=== PATIENT | male | born 1970 | race African-American/Black ===

== ENCOUNTER 2020-10-10 17:36 | Emergency (ER) | payer MEDICAID, SELFPAY ==
[2020-10-10 17:50] VITALS: PULSE 101; RESP 18; TEMP 36.7; O2SAT 92; BMI 48.9
--- NOTE | 2020-10-10 18:30 | XR_ITS ---
EXAMINATION: XR chest 1V CLINICAL INFORMATION: Reason for Exam covid +, mild hypoxia COMPARISON: No prior chest x-ray available TECHNIQUE: XR chest 1V Tubes and lines: None Lungs and Eliane: Both lungs are clear. Pleura: Normal. Costophrenic angles are sharp. No pneumothorax. Heart and mediastinum: The mediastinum is within normal limits.. Bones: Skeletal structures included are normal for patient's age. XR/XR chest 1V IMPRESSION: No radiographic evidence of acute cardiopulmonary disease.
--- NOTE | 2020-10-10 18:32 | ED.GENADULT ---
HPI - General Adult General Chief complaint: Upper Respiratory Symptoms Stated complaint: covid Time Seen by Provider: 10/10/20 18:00 Source: patient Mode of arrival: ambulatory Limitations: no limitations History of Present Illness HPI narrative: patient comes to the emergency room, patient was sent from [facility]. patient is there for rehab for sciatica Pain. Patient states he got tested for COVID-19 this morning and it was positive. His oxygen saturation was between 91-96% on room air, therefore he was sent to the emergency room. Patient states he has a mild sore throat, does not have any chest pain no shortness of breath, denies any body aches, otherwise feeling well, patient states he has not had any fever MD complaint: low oxygen saturation Related Data Home Medications Medication Instructions Recorded Confirmed Dulcolax (bisacodyl) 10/10/20 Fleet Enema 10/10/20 Glucose Gel 10/10/20 Milk of Magnesia 10/10/20 Miralax 10/10/20 Senno 10/10/20 Tylenol 10/10/20 Vitamin D3 10/10/20 10/10/20 aspirin 10/10/20 atorvastatin 10/10/20 cetirizine 10/10/20 cyclobenzaprine 10/10/20 diclofenac sodium 10/10/20 escitalopram oxalate 10/10/20 famotidine 10/10/20 fluticasone propionate 10/10/20 gabapentin 10/10/20 glucagon 10/10/20 lisinopril 10/10/20 metformin 10/10/20 metoprolol succinate 10/10/20 naproxen 10/10/20 Allergies Allergy/AdvReac Type Severity Reaction Status Date / Time No Known Allergies Allergy Verified 10/10/20 18:05 Review of Systems Review of Systems: Constitutional : No Weight loss, No Fever, No Chills, No Night Sweats, No Fatigue, No Malaise ENT/Mouth : No Hearing loss, No Ear Pain, No Nasal Congestion, No Sinus Pain, mild Hoarseness, mild sore throat, No Rhinorrhea, No Swallowing Difficulty Eyes: No Eye Pain, No Swelling, No Redness, No Foreign Body, No Discharge, No Vision Changes Cardiovascular : No Chest Pain, No SOB, No Dyspnea on Exertion, No Orthopnea, No Edema, No Palpitations Respiratory : No Cough, No Sputum, No Wheezing, No Smoke Exposure, No Dyspnea Gastrointestinal : No Nausea, No Vomiting, No Diarrhea, No Constipation, No abdominal Pain, No Hematochezia, No Melena Genitourinary : no irregular bleeding, No Dysuria, No Urinary Frequency, No Hematuria, No Urinary Incontinence, No Urgency, No Flank Pain, No Urinary Flow Changes, No Hesitancy Musculoskeletal : No joint pain, No Myalgias, No Joint Swelling Skin : No Skin Lesions, No rash Neuro : No Weakness, No Numbness, No Paresthesias, No Loss of Consciousness, No Dizziness, No Headache Psych : No Anxiety/Panic, No Depression, No SI/HI/AH/VH, No Social Issues, Heme/Lymph: No Bruising, No Bleeding,No Lymphadenopathy Endocrine : No Polyuria, No Polydipsia, No Temperature Intolerance [facility] Past Medical History Medical History Anxiety Arthritis Depression Diabetes mellitus, type 2 Hypertension Obesity PTSD (post-traumatic stress disorder) Sleep apnea Social History Social History Alcohol intake: never Smoked in Last 30 Days: No Use of substances other than those prescribed or required for medical reasons: No Advance Directives: No Advance Directives Information Provided: No Physical Exam Vital Signs: Vital Signs: Last Vital Signs Temp 97.9 F 10/10/20 20:00 Pulse 86 10/10/20 20:00 Resp 16 10/10/20 20:00 BP 125/82 10/10/20 20:00 Pulse Ox 95 10/10/20 20:36 Body Mass Index 48.9 Appearance: Alert. Oriented X3. No acute distress. Eyes: Pupils equal, round and reactive to light. ENT: Pharynx normal. Neck: Normal inspection. Neck supple. No lymph nodes noted. No crepitus CVS: Normal heart rate and rhythm. Pulses normal. Normal S1 and S2 Respiratory: No respiratory distress. Breath sounds normal. No Wheezing. No rales Abdomen: Soft and nontender. No rigidity. No distention. good BS x4 Skin: Skin warm and dry. Normal skin color. Normal skin turgor. Extremities: +1 lower extremity nonpitting edema. No Lacerations. No Rash. Neuro: Oriented X 3. No motor deficit. No sensory deficit. Moving all extermities. No slurred speech. Course Course Course Narrative: Patient states he feels well. Patient has been on room air saturating between 93 and 96%, patient is known to have COVID-19, patient may be discharged. Medical Decision Making Lab Data Result diagrams: 10/10/20 19:43 10/10/20 19:43 Labs: Lab Results 10/10/20 10/10/20 Range/Units 19:43 19:43 WBC 4.7 L (4.8-10.8) X10*3/uL RBC 5.21 (4.60-5.80) X10*6/uL Hgb 14.7 (14.0-18.0) g/dl Hct 46.6 (42-52) % MCV 89.4 (80-98) fL MCH 28.2 (27.0-33.0) pg MCHC 31.5 (31.0-36.0) g/dl RDW 13.5 (11.0-16.0) % Plt Count 226 (160-400) X10*3/uL MPV 11.1 (9.4-12.4) fL Immature Gran % (Auto) 0.4 (0.0-0.4) % Neut % (Auto) 52.2 (45-73) % Lymph % (Auto) 33.1 (20-40) % [place] % (Auto) 9.6 (2-11) % Eos % (Auto) 4.1 H (0-4) % Baso % (Auto) 0.6 (0-2) % Lymph # (Auto) 1.6 (1.2-4.9) X10*3/uL [place] # (Auto) 0.5 (0.1-1.2) X10*3/uL Eos # (Auto) 0.2 (0.0-0.4) X10*3/uL Baso # (Auto) 0.0 (0.0-0.2) X10*3/uL Abs Immat Gran (auto) 0.02 (0.00-0.03) X10*3/uL Absolute Neuts (auto) 2.4 (2.0-8.3) X10*3/uL Absolute Nucleated RBC 0.000 (0.0-0.012) X10*3/uL Nucleated RBC % (auto) 0.0 (0.0-0.2) /100WBC Sodium 139 (135-145) mmol/L Potassium 3.8 (3.3-5.1) mmol/l Chloride 103 (96-108) mmol/L Carbon Dioxide 25 (22-29) mmol/L Anion Gap 15 (12-20) BUN 7 L (9-16) mg/dL Creatinine 0.67 (0.5-1.4) mg/dL Estim Creat Clear Calc 207.5 Estimated GFR > 60 Random Glucose 100 (60-115) mg/dL Calcium 8.1 L (8.4-10.2) mg/dL Discharge Plan Discharge Clinical Impression: COVID-19 Patient Disposition: Xfer [facility] Instructions: COVID-19 (Coronavirus Disease 2019) (ED) Additional Instructions: if you have worsening shortness of breath, oxygen saturation drops below 90, any new symptoms, please return to the emergency room. Prescriptions: No Action Dulcolax (bisacodyl) RF: 0 Fleet Enema RF: 0 Glucose Gel RF: 0 Milk of Magnesia RF: 0 Miralax RF: 0 Senno RF: 0 Tylenol RF: 0 Vitamin D3 RF: 0 aspirin RF: 0 atorvastatin RF: 0 cetirizine RF: 0 cyclobenzaprine RF: 0 diclofenac sodium RF: 0 escitalopram oxalate RF: 0 famotidine RF: 0 fluticasone propionate RF: 0 gabapentin RF: 0 glucagon RF: 0 lisinopril RF: 0 metformin RF: 0 metoprolol succinate RF: 0 naproxen RF: 0
[2020-10-10 19:49] LABS: MANUAL DIFF FLAG NO
[2020-10-10 19:53] LABS: Basophils Percent Auto 0.6 % (0-2); Eosinophils Absolute Auto 0.2 X10*3/uL (0.0-0.4); Eosinophils Percent Auto 4.1 % (0-4); Hematocrit 46.6 % (42-52); Hemoglobin 14.7 g/dl (14.0-18.0); Imm Gran Abs Auto 0.02 X10*3/uL (0.00-0.03); Imm Gran Pct Auto 0.4 % (0.0-0.4); Lymphocytes Absolute Auto 1.6 X10*3/uL (1.2-4.9); Lymphocytes Percent Auto 33.1 % (20-40); Mean Corpuscular HGB Conc 31.5 g/dl (31.0-36.0); Mean Corpuscular Hemoglobin 28.2 pg (27.0-33.0); Mean Corpuscular Volume 89.4 fL (80-98); Mean Platelet Volume 11.1 fL (9.4-12.4); Monocytes Absolute Auto 0.5 X10*3/uL (0.1-1.2); Monocytes Percent Auto 9.6 % (2-11); Neutrophils Absolute Auto 2.4 X10*3/uL (2.0-8.3); Neutrophils Percent Auto 52.2 % (45-73); Platelet Count 226 X10*3/uL (160-400); Red Blood Count 5.21 X10*6/uL (4.60-5.80); Red Cell Distribution Width 13.5 % (11.0-16.0); White Blood Count 4.7 X10*3/uL (4.8-10.8)
[2020-10-10 20:00] VITALS: BP 125/82; PULSE 86; RESP 16; TEMP 36.6; O2SAT 98
--- NOTE | 2020-10-10 20:22 | PC.NURSE ---
Pt reports chronic back pain r/t herniated disc, offered tylenol/motrin, declined. awaiting dispo
[2020-10-10 20:27] LABS: Anion Gap 15 (12-20); Blood Urea Nitrogen 7 mg/dL (9-16); Calcium 8.1 mg/dL (8.4-10.2); Carbon Dioxide 25 mmol/L (22-29); Chloride 103 mmol/L (96-108); Creatinine Clr Calc Pharmacy 207.5; Estimated Glomerular Filt Rate > 60; Glucose Random 100 mg/dL (60-115); Potassium 3.8 mmol/l (3.3-5.1); Sodium 139 mmol/L (135-145)
[2020-10-10 20:36] VITALS: PULSE 82; O2SAT 95
[2020-10-10 22:01] VITALS: BP 104/78; PULSE 84; RESP 18; TEMP 36.6; O2SAT 95
--- NOTE | 2020-10-10 22:13 | PC.NURSE ---
Report given to rn at [facility]
== END 2020-10-10 22:14 | disposition skilled nursing facility (03) ==
PROVIDERS: Emergency Provider Emergency Medicine
DX: U07.1 COVID-19 (principal); M54.42 Lumbago with sciatica, left side; M54.41 Lumbago with sciatica, right side
CPT/HCPCS: 36415; 71045; 80048; 85025; 99285

== ENCOUNTER 2022-09-28 11:34 | Emergency (ER) | payer OTHER, SELFPAY ==
[2022-09-28 11:43] VITALS: BP 158/92; PULSE 94; O2SAT 98
[2022-09-28 11:52] VITALS: BP 162/86; PULSE 89; RESP 18; TEMP 36.2; O2SAT 98; BMI 63.9
--- NOTE | 2022-09-28 12:13 | ED.GENADULT ---
HPI - General Adult General Chief complaint: General Medical Stated complaint: ABD PAIN S/P DRINKING RUBBING ALCOHOL TO GET DRUNK Time Seen by Provider: 09/28/22 12:07 Source: patient and EMS Mode of arrival: EMS Limitations: no limitations History of Present Illness HPI narrative: Patient is a 52 year old assigned male at with a history of alcohol abuse presenting to the emergency department today with epigastric pain after ingesting rubbing alcohol. Patient states that he has been sober for years and in a moment of weakness last night, he drank rubbing alcohol. Patient states that he drank about half a bottle and immediately threw it all up. Patient states that he has not had any additional vomiting today and has just had epigastric pain. Patient denies any dizziness, lightheadedness, nausea, vomiting, fever, chills, blurry vision, double vision, loss of vision, chest pain, difficulty breathing, shortness of breath, back pain, night sweats, pain with urination, increased urinary frequency, increased urinary urgency, blood in his urine or stool, syncope or a near syncopal episode, recent trauma or falls, bowel incontinence, bladder incontinence, bowel retention, bladder retention, or any other complaints at this time. Onset (ago): hour(s) Location: abdomen Radiation: non-radiation Severity: mild Severity scale (1-10): 3 Quality: burning Pain Consistency: constant Relieving factors: none Exacerbating factors: none Associated symptoms: denies other symptoms Treatments prior to arrival: none Related Data Home Medications Medication Instructions Recorded Confirmed Dulcolax (bisacodyl) 10/10/20 Fleet Enema 10/10/20 Glucose Gel 10/10/20 Milk of Magnesia 10/10/20 Miralax 10/10/20 Senno 10/10/20 Tylenol 10/10/20 Vitamin D3 10/10/20 10/10/20 aspirin 10/10/20 atorvastatin 10/10/20 cetirizine 10/10/20 cyclobenzaprine 10/10/20 diclofenac sodium 10/10/20 escitalopram oxalate 10/10/20 famotidine 10/10/20 fluticasone propionate 10/10/20 gabapentin 10/10/20 glucagon 10/10/20 lisinopril 10/10/20 metformin 10/10/20 metoprolol succinate 10/10/20 naproxen 10/10/20 Allergies Allergy/AdvReac Type Severity Reaction Status Date / Time No Known Allergies Allergy Verified 10/10/20 18:05 Review of Systems Constitutional: Constitutional: Reports no additional constitutional complaints, Denies chills, Denies fever(s) and Denies night sweats Eyes: Eyes: Reports no additional eye complaints, Denies blurry vision, Denies change in vision, Denies diplopia, Denies eye discharge, Denies loss of vision and Denies eye pain ENT: Denies dizziness Cardiovascular: Cardiovascular: Reports no additional cardiovascular complaints, Denies chest pain, Denies lightheadedness, Denies Loss of Consciousness and Denies dyspnea Respiratory: Respiratory: Reports no additional respiratory complaints and Denies dyspnea Gastrointestinal: Gastrointestinal: Reports no additional gastrointestinal complaints, Reports abdominal pain, Denies melena, Denies hematochezia, Denies change in bowel habits and Denies change in stool character Genitourinary: Genitourinary: Reports no additional male genitourinary complaints, Denies hematuria, Denies oliguria, Denies difficulty urinating, Denies dysuria, Denies urinary frequency, Denies urinary hesitancy, Denies urinary incontinence and Denies urinary urgency Musculoskeletal: Musculoskeletal: Reports no additional musculoskeletal complaints, Denies numbness and Denies tingling Neurologic: Denies dizziness, Denies loss of vision, Denies numbness and Denies tingling Psychiatric: Psychiatric: Reports no additional psychiatric complaints Endocrine: Endocrine: Reports no additional endocrine complaints Hematologic/Lymphatic: Hematologic/Lymphatic: Reports no additional hematologic/lymphatic complaints Allergic/Immunologic: Allergic/Immunologic: Reports no additional allergic/immunologic complaints PMFSH Past Medical History Attestation statement: The following information was validated with the patient. Source: old records reviewed Medical History Anxiety Arthritis Depression Diabetes mellitus, type 2 Herniated disc Hypertension Obesity PTSD (post-traumatic stress disorder) Sleep apnea Social History Social History Alcohol intake: never Advance Directives: No Physical Exam ED Vital Signs: Vital Signs - 24 hr 09/28/22 11:52 09/28/22 14:54 09/28/22 16:35 Temperature 97.2 F 98 F 98.0 F Pulse Rate 89 100 113 H Respiratory Rate 18 18 16 Blood Pressure 162/86 H 109/49 L 108/65 Pulse Oximetry 98 98 98 Oxygen Delivery Method Room Air Room Air BMI result Body Mass Index 63.9 Const General: cooperative, no acute distress, alert and awake Nutritional Appearance: well nourished Orientation/consciousness: patient oriented x3 Limitations: no limitations HENMT Head: Yes normal to inspection and Yes atraumatic Ears: hearing grossly normal bilaterally and external ears normal General nose exam: Normal external nose present, no nasal discharge noted and no epistaxis Face and sinus: Yes normal facial exam, No abrasion and No laceration Mouth: Normal oral and palatal mucosa present, no drooling and no muffled voice Eyes General: appearance normal, both eyes and all related structures Periorbital: periorbital findings normal Eyelids: Yes eyelids normal Conjunctivae: conjunctivae normal Pupils: Equal, round and reactive pupils present EOM: EOMs intact bilaterally Neck Neck: Yes normal visual inspection, Yes full ROM and Yes no lymphadenopathy Chest Chest palpation & inspection: normal inspection of the chest Resp Effort & Inspection: normal respiratory effort and able to speak in complete sentences Auscultation: clear to auscultation bilaterally Cardio Rate: regular rate Rhythm: regular rhythm GI Inspection: Yes normal to inspection Palpation (GI): Soft to palpation, not firm, nontender, no guarding and not rigid Neuro General: patient oriented x3 and moves all extremities Cranial nerves: Yes Equal, round and reactive pupils present Cognition (Neuro): normal cognition Motor exam (neuro): 5/5 motor strength present throughout Sensory Exam: Normal double simultaneous stimulation for sensation Coordination: [id number] test normal Extrem General: Yes normal to inspection, Yes full ROM and Yes capillary refill normal Psych Appearance: grossly normal Mental Status: mental status grossly normal Affect: normal affect Attitude: cooperative Thought process: Normal thought process present Thought content: Normal thought content present Insight: Good insight present (Psych) Medications Administered Discontinued Medications Generic Name Dose Route Start Last Admin Trade Name Isaiahq PRN Reason Stop Dose Admin Al Hydroxide/Mg Hydroxide 15 ml 09/28/22 12:41 09/28/22 14:52 Magnesium Hydrox/Alum Hydrox 30 Ml Oral.Susp PO 09/28/22 12:42 15 ml ONCE ONE Administration Sodium Chloride 1,000 mls @ 999 mls/hr 09/28/22 12:45 09/28/22 14:53 Ns IV 09/28/22 13:45 Not Given .Q1H1M TOBY Ondansetron HCl 4 mg 09/28/22 12:33 09/28/22 14:53 Ondansetron Hcl 4 Mg/2 Ml Vial IVPUSH 09/28/22 12:34 Not Given ONCE ONE Pantoprazole Sodium 40 mg 09/28/22 12:41 09/28/22 14:53 Pantoprazole Sodium 40 Mg/10 Ml Vial IVPUSH 09/28/22 12:42 Not Given ONCE ONE Medical Decision Making MDM Narrative Medical decision making narrative: Patient is a 52 year old assigned male at with a history of alcoholism presenting to the emergency department today with epigastric pain. Patient's physical exam was unremarkable. Patient's blood work showed presence of acetone and a serum osmolality of 320. Patient's EKG was unremarkable. I spoke to sylvia avery who stated those labs are expected and there is nothing to do about them. They stated that the patient is medically cleared and they advise supportive measures only for his symptoms. I explained my physical exam findings as well as all test results to the patient. I answered all questions asked by the patient. Patient received PO Maalox which he stated helped his symptoms significantly. I stressed the importance of the patient taking his medication as prescribed. I stressed the importance of the patient following up with his primary care provider. I stressed the importance of the patient returning to the emergency department immediately if his symptoms were to worsen or if he were to develop any dizziness, shortness of breath, difficulty breathing, chest pain, blurry vision, loss of vision, nausea, vomiting, abdominal pain, fever, chills, back pain, or any other complaints. Patient verbalized agreement and understanding with this treatment plan and discharge. Medical Records Medical records reviewed: Yes I reviewed the patient's medical records. Lab Data Lab results reviewed: Yes I reviewed the patient's lab results. Result diagrams: 09/28/22 14:44 09/28/22 14:44 Labs: Lab Results 09/28/22 09/28/22 09/28/22 Range/Units 14:44 14:44 14:44 WBC 8.3 (4.8-10.8) X10*3/uL RBC 5.16 (4.60-5.80) X10*6/uL Hgb 15.2 (14.0-18.0) g/dl Hct 45.8 (42.0-52.0) % MCV 88.8 (80.0-98.0) fL MCH 29.5 (27.0-33.0) pg MCHC 33.2 (31.0-36.0) g/dl RDW 13.2 (11.0-16.0) % Plt Count 273 (160-400) X10*3/uL MPV 10.4 (9.4-12.4) fL Immature Gran % (Auto) 0.2 (0.0-0.4) % Neut % (Auto) 70.8 (45-73) % Lymph % (Auto) 20.6 (20-40) % [place] % (Auto) 7.9 (2-11) % Eos % (Auto) 0.0 (0-4) % Baso % (Auto) 0.5 (0-2) % Lymph # (Auto) 1.7 (1.2-4.9) X10*3/uL [place] # (Auto) 0.7 (0.1-1.2) X10*3/uL Eos # (Auto) 0.0 (0.0-0.4) X10*3/uL Baso # (Auto) 0.0 (0.0-0.2) X10*3/uL Abs Immat Gran (auto) 0.02 (0.00-0.03) X10*3/uL Absolute Neuts (auto) 5.9 (2.0-8.3) x10*3/uL Absolute Nucleated RBC 0.000 (0.0-0.012) X10*3/uL Nucleated RBC % (auto) 0.0 (0.0-0.2) /100WBC Sodium 140 (135-145) mmol/L Potassium 3.7 (3.3-5.1) mmol/L Chloride 102 (96-108) mmol/L Carbon Dioxide 23 (22-29) mmol/L Anion Gap 19 (12-20) BUN 5 L (9-16) mg/dL Creatinine 1.05 (0.5-1.4) mg/dL Estim Creat Clear Calc 166.2 Estimated GFR > 60 Random Glucose 124 H (60-115) mg/dL Osmolality (281-305) mosm/kg Calcium 8.7 D (8.4-10.2) mg/dL Magnesium 1.9 (1.6-2.6) mg/dL Total Bilirubin 0.7 (0.0-1.0) mg/dL AST 31 (5-37) U/L ALT 31 (0-40) U/L Alkaline Phosphatase 67 (39-117) U/L Total Protein 7.6 (6.5-8.0) g/dL Albumin 4.2 (3.5-5.0) g/dL Salicylates < 5.0 L (15-30) mg/dL Acetaminophen < 1 (<30) mcg/mL Ethyl Alcohol < 10 mg/dL Acetone, Qual (Negative) 09/28/22 09/28/22 Range/Units 14:44 14:44 WBC (4.8-10.8) X10*3/uL RBC (4.60-5.80) X10*6/uL Hgb (14.0-18.0) g/dl Hct (42.0-52.0) % MCV (80.0-98.0) fL MCH (27.0-33.0) pg MCHC (31.0-36.0) g/dl RDW (11.0-16.0) % Plt Count (160-400) X10*3/uL MPV (9.4-12.4) fL Immature Gran % (Auto) (0.0-0.4) % Neut % (Auto) (45-73) % Lymph % (Auto) (20-40) % [place] % (Auto) (2-11) % Eos % (Auto) (0-4) % Baso % (Auto) (0-2) % Lymph # (Auto) (1.2-4.9) X10*3/uL [place] # (Auto) (0.1-1.2) X10*3/uL Eos # (Auto) (0.0-0.4) X10*3/uL Baso # (Auto) (0.0-0.2) X10*3/uL Abs Immat Gran (auto) (0.00-0.03) X10*3/uL Absolute Neuts (auto) (2.0-8.3) x10*3/uL Absolute Nucleated RBC (0.0-0.012) X10*3/uL Nucleated RBC % (auto) (0.0-0.2) /100WBC Sodium (135-145) mmol/L Potassium (3.3-5.1) mmol/L Chloride (96-108) mmol/L Carbon Dioxide (22-29) mmol/L Anion Gap (12-20) BUN (9-16) mg/dL Creatinine (0.5-1.4) mg/dL Estim Creat Clear Calc Estimated GFR Random Glucose (60-115) mg/dL Osmolality 320 H (281-305) mosm/kg Calcium (8.4-10.2) mg/dL Magnesium (1.6-2.6) mg/dL Total Bilirubin (0.0-1.0) mg/dL AST (5-37) U/L ALT (0-40) U/L Alkaline Phosphatase (39-117) U/L Total Protein (6.5-8.0) g/dL Albumin (3.5-5.0) g/dL Salicylates (15-30) mg/dL Acetaminophen (<30) mcg/mL Ethyl Alcohol mg/dL Acetone, Qual Small H (Negative) Discharge Plan Discharge Clinical Impression: Alcohol ingestion Patient Disposition: Home, Self-Care Additional Instructions: Follow up with your primary care provider. Return to the emergency department immediately if your symptoms worsen or if you develop any dizziness, shortness of breath, difficulty breathing, chest pain, blurry vision, loss of vision, nausea, vomiting, abdominal pain, fever, chills, back pain, or any other complaints. Prescriptions: No Action Dulcolax (bisacodyl) Fleet Enema Glucose Gel Milk of Magnesia Miralax Senno Tylenol Vitamin D3 aspirin atorvastatin cetirizine cyclobenzaprine diclofenac sodium escitalopram oxalate famotidine fluticasone propionate gabapentin glucagon lisinopril metformin metoprolol succinate naproxen Referrals: Ruddy Diaz PA [Primary Care Provider] - Print Language: Slovenian
--- NOTE | 2022-09-28 12:34 | ECG_ITS ---
Test Reason : ABDOMINAL PAIN Blood Pressure : / mmHG Vent. Rate : 083 BPM Atrial Rate : 083 BPM P-R Int : 208 ms QRS Dur : 098 ms QT Int : 378 ms P-R-T Axes : 035 238 -10 degrees QTc Int : 444 ms Normal sinus rhythm Right superior axis deviation Low voltage QRS Incomplete right bundle branch block Abnormal ECG No previous ECGs available Referred By: Barb Tirado Electronically Signed By:DARWIN LEAL MD
[2022-09-28 14:49] LABS: MANUAL DIFF FLAG NO
--- NOTE | 2022-09-28 14:49 | PC.NURSE ---
mult attempts at iv and labbs unsuccessful, pt sleeping on/off, skin wpd, c/o stomach upset, pa alber aware and states iv not necessary
[2022-09-28] MEDS: Magnesium Hydrox/Alum Hydrox 30 ML ORAL.SUSP 15 ML PO (14:52)
[2022-09-28 14:53] LABS: Basophils Percent Auto 0.5 % (0-2); Hematocrit 45.8 % (42.0-52.0); Hemoglobin 15.2 g/dl (14.0-18.0); Imm Gran Abs Auto 0.02 X10*3/uL (0.00-0.03); Imm Gran Pct Auto 0.2 % (0.0-0.4); Lymphocytes Absolute Auto 1.7 X10*3/uL (1.2-4.9); Lymphocytes Percent Auto 20.6 % (20-40); Mean Corpuscular HGB Conc 33.2 g/dl (31.0-36.0); Mean Corpuscular Hemoglobin 29.5 pg (27.0-33.0); Mean Corpuscular Volume 88.8 fL (80.0-98.0); Mean Platelet Volume 10.4 fL (9.4-12.4); Monocytes Absolute Auto 0.7 X10*3/uL (0.1-1.2); Monocytes Percent Auto 7.9 % (2-11); Neutrophils Absolute Auto 5.9 x10*3/uL (2.0-8.3); Neutrophils Percent Auto 70.8 % (45-73); Platelet Count 273 X10*3/uL (160-400); Red Blood Count 5.16 X10*6/uL (4.60-5.80); Red Cell Distribution Width 13.2 % (11.0-16.0); White Blood Count 8.3 X10*3/uL (4.8-10.8)
[2022-09-28 14:54] VITALS: BP 109/49; PULSE 100; RESP 18; TEMP 36.6; O2SAT 98
[2022-09-28 15:16] LABS: Acetone, serum QL Small (Negative); Ethanol < 10 mg/dL
[2022-09-28 15:46] LABS: Osmolality, Serum 320 mosm/kg (281-305)
[2022-09-28 15:55] LABS: Acetaminophen LAB < 1 mcg/mL (<30); Alanine Aminotransferase 31 U/L (0-40); Albumin Level 4.2 g/dL (3.5-5.0); Alkaline Phosphatase 67 U/L (39-117); Anion Gap 19 (12-20); Aspartate Amino Transferase 31 U/L (5-37); Bilirubin Total 0.7 mg/dL (0.0-1.0); Blood Urea Nitrogen 5 mg/dL (9-16); Calcium 8.7 mg/dL (8.4-10.2); Carbon Dioxide 23 mmol/L (22-29); Chloride 102 mmol/L (96-108); Creatinine Clr Calc Pharmacy 166.2; Estimated Glomerular Filt Rate > 60; Glucose Random 124 mg/dL (60-115); Magnesium 1.9 mg/dL (1.6-2.6); Potassium 3.7 mmol/L (3.3-5.1); Salicylate < 5.0 mg/dL (15-30); Sodium 140 mmol/L (135-145); Total Protein 7.6 g/dL (6.5-8.0)
[2022-09-28 16:35] VITALS: BP 108/65; PULSE 113; RESP 16; TEMP 36.7; O2SAT 98
[2022-09-28] MEDS: Ondansetron ODT 4 MG TAB.RAPDIS TRANSLINGU (17:46)
[2022-09-28] MEDS: Omeprazole 20 MG CAPSULE.DR PO (17:46)
[2022-09-30 03:51] LABS: Analysis performed on: WHOLE BLOOD; Ethyl Alcohol g/dL (%) NONE DETECTED g/dL(%) (NONE DETECTED); Ethyl Alcohol mg/dL NONE DETECTED (NONE DETECTED); Isopropanol NONE DETECTED (NONE DETECTED)
[2022-09-30 07:15] LABS: Acetone 92; Methyl Alcohol NONE DETECTED
== END 2022-09-28 18:14 | disposition home or self-care (01) ==
PROVIDERS: Physician Assistant Medical; Emergency Provider Emergency Medicine Emergency Medical Services; PCP Physician Assistant
DX: T51.2X1A Toxic effect of 2-Propanol, accidental (unintentional), initial encounter (principal); R10.13 Epigastric pain; Y92.009 Unspecified place in unspecified non-institutional (private) residence as the place of occurrence of the external cause; F10.20 Alcohol dependence, uncomplicated; E11.9 Type 2 diabetes mellitus without complications; I10 Essential (primary) hypertension; F41.9 Anxiety disorder, unspecified; E66.9 Obesity, unspecified; Z68.44 Body mass index [BMI] 60.0-69.9, adult; Z79.899 Other long term (current) drug therapy
CPT/HCPCS: 36415; 80053; 80143; 80179; 80320; 82009; 82077; 83735; 83930; 85025; 93005; 99284

== ENCOUNTER 2022-10-02 19:30 | Inpatient (IN) | payer MEDICARE, MEDICAID, OTHER, SELFPAY ==
--- NOTE | ~2022-10-02 | XR_ITS ---
EXAMINATION: PORTABLE CHEST 1 VIEW CLINICAL INFORMATION: chest pain . COMPARISON: 10/10/2020. TECHNIQUE: Portable frontal view of the chest was obtained. FINDINGS: Lungs are well expanded. There is central vascular prominence but this is similar to the prior study. Cardiac silhouette is also prominent but this may be technique related. No superimposed focal infiltrate, effusion, edema, or pneumothorax when compared to the prior study. Degenerative changes seen in the spine XR/XR chest 1V IMPRESSION: Chronic appearing changes similar to the prior study. No acute superimposed process.
[2022-10-02 19:39] VITALS: BP 180/100; PULSE 94; O2SAT 96
--- NOTE | 2022-10-02 19:43 | ECG_ITS ---
Test Reason : CHEST TIGHTNESS Blood Pressure : / mmHG Vent. Rate : 090 BPM Atrial Rate : 090 BPM P-R Int : 178 ms QRS Dur : 096 ms QT Int : 410 ms P-R-T Axes : 052 -74 020 degrees QTc Int : 501 ms Sinus rhythm with occasional Premature ventricular complexes Possible Left atrial enlargement Left anterior fascicular block RSR' or QR pattern in V1 suggests right ventricular conduction delay Abnormal ECG When compared with ECG of 28-SEP-2022 12:42, Premature ventricular complexes are now Present Nonspecific T wave abnormality no longer evident in Lateral leads Referred By: Generic ED Physician Electronically Signed By:DARWIN LEAL MD
--- NOTE | 2022-10-02 19:48 | ED_ITS ---
HPI - Chest Pain General Chief Complaint: Chest Pain Stated Complaint: cp Time Seen by Provider: 10/02/22 19:46 Source: patient Mode of arrival: EMS Limitations: no limitations History of Present Illness HPI narrative: Patient morbidly obese TERRIE on CPAP ,alcoholic comes here for chest pain started earlier today mostly on the left side squeezing pain lasting for few minutes off and on all day patient vomited few times with epigastric pain no shortness of breath no diaphoresis no palpitation no leg swelling or calf pain patient was given 324 mg aspirin by EMS Related Data Home Medications Medication Instructions Recorded Confirmed Dulcolax (bisacodyl) 10/10/20 Fleet Enema 10/10/20 Glucose Gel 10/10/20 Milk of Magnesia 10/10/20 Miralax 10/10/20 Senno 10/10/20 Tylenol 10/10/20 Vitamin D3 10/10/20 10/10/20 aspirin 10/10/20 atorvastatin 10/10/20 cetirizine 10/10/20 cyclobenzaprine 10/10/20 diclofenac sodium 10/10/20 escitalopram oxalate 10/10/20 famotidine 10/10/20 fluticasone propionate 10/10/20 gabapentin 10/10/20 glucagon 10/10/20 lisinopril 10/10/20 metformin 10/10/20 metoprolol succinate 10/10/20 naproxen 10/10/20 Allergies Allergy/AdvReac Type Severity Reaction Status Date / Time No Known Allergies Allergy Verified 10/10/20 18:05 Review of Systems Review of Systems: Yes all other systems are reviewed and are negative [facility] Past Medical History Medical History Anxiety Arthritis Depression Diabetes mellitus, type 2 Herniated disc Hypertension Obesity PTSD (post-traumatic stress disorder) Sleep apnea Social History Social History Alcohol intake: never Advance Directives: No Advance Directives Information Provided: Yes Guardian: No Physical Exam Vital Signs: Vital Signs: Last Vital Signs Temp 97.9 F 10/03/22 00:35 Pulse 98 10/03/22 00:35 Resp 19 10/03/22 00:35 BP 149/85 H 10/03/22 00:35 Pulse Ox 97 10/03/22 00:35 O2 Del Method 10/03/22 00:35 BMI result Body Mass Index 59.7 Appearance: Alert. Oriented X3. No acute distress. Obese Eyes: PERRLA, no pallor or icterus ENT: Pharynx normal. Oral Mucosa moist Neck: Normal inspection. Neck supple. CVS: Normal heart rate and rhythm. Pulses normal. Respiratory: No respiratory distress. Equal air entry bilateral, no wheezing/rales/rhonchi Abdomen: Soft and nontender. Bowel sounds are present, no mass palpable, no CVA tenderness Skin: Skin warm and dry. Normal skin color. Normal skin turgor. Extremities: No lower extremity edema. No calf tenderness Neuro: Oriented X 3. No motor deficit. No sensory deficit.No cerebellar signs , cranial nerves II-XII intact Course Reevaluation(s) Reevaluation #1: Patient complaining of increased depression with suicidal feeling because of poor family relationships with plan to keep drinking alcohol. Will consult crisis Time: 21:07 Medications Administered Discontinued Medications Generic Name Dose Route Start Last Admin Trade Name Alf PRN Reason Stop Dose Admin Nitroglycerin 1 inch 10/02/22 19:52 10/02/22 20:27 Nitroglycerin 2 % Oint 1 Gm Packet TRANSDERMA 10/02/22 19:53 1 inch ONCE ONE Administration Ondansetron HCl 4 mg 10/02/22 20:30 10/02/22 20:52 Ondansetron Odt 4 Mg Tab.Rapdis TRANSLINGU 10/02/22 20:31 4 mg ONCE ONE Administration MDM - Chest Pain MDM Narrative Medical decision making narrative: Patient with atypical chest pain with depression and suicidal feeling no delta change in troponin EKG without any ischemic changes patient seen by crisis plan to place him in [place] inpatient psych Medical Records Data Attestation: I reviewed the patient's medical records. Lab Data Attestation: I reviewed the patient's lab results. Result diagrams: 10/02/22 20:10 10/02/22 20:10 Labs: Lab Results 10/02/22 10/02/22 10/02/22 Range/Units 20:10 20:10 20:10 WBC 7.7 (4.8-10.8) X10*3/uL RBC 5.29 (4.60-5.80) X10*6/uL Hgb 15.3 (14.0-18.0) g/dl Hct 47.1 (42.0-52.0) % MCV 89.0 (80.0-98.0) fL MCH 28.9 (27.0-33.0) pg MCHC 32.5 (31.0-36.0) g/dl RDW 13.2 (11.0-16.0) % Plt Count 233 (160-400) X10*3/uL MPV 10.5 (9.4-12.4) fL Immature Gran % (Auto) 0.3 (0.0-0.4) % Neut % (Auto) 75.2 H (45-73) % Lymph % (Auto) 15.4 L (20-40) % [place] % (Auto) 7.3 (2-11) % Eos % (Auto) 0.9 (0-4) % Baso % (Auto) 0.9 (0-2) % Lymph # (Auto) 1.2 (1.2-4.9) X10*3/uL [place] # (Auto) 0.6 (0.1-1.2) X10*3/uL Eos # (Auto) 0.1 (0.0-0.4) X10*3/uL Baso # (Auto) 0.1 (0.0-0.2) X10*3/uL Abs Immat Gran (auto) 0.02 (0.00-0.03) X10*3/uL Absolute Neuts (auto) 5.8 (2.0-8.3) x10*3/uL Absolute Nucleated RBC 0.000 (0.0-0.012) X10*3/uL Nucleated RBC % (auto) 0.0 (0.0-0.2) /100WBC Sodium 138 (135-145) mmol/L Potassium 4.3 (3.3-5.1) mmol/L Chloride 101 (96-108) mmol/L Carbon Dioxide 26 (22-29) mmol/L Anion Gap 15 (12-20) BUN 8 L (9-16) mg/dL Creatinine 0.79 (0.5-1.4) mg/dL Estim Creat Clear Calc 194.4 Estimated GFR > 60 Random Glucose 141 H (60-115) mg/dL Calcium 8.8 (8.4-10.2) mg/dL Total Bilirubin 0.7 (0.0-1.0) mg/dL Direct Bilirubin 0.3 (0.0-0.5) mg/dL AST 37 (5-37) U/L ALT 37 (0-40) U/L Alkaline Phosphatase 62 (39-117) U/L Troponin I High Sens 19.1 (<3.5-35.0) ng/L Total Protein 7.8 (6.5-8.0) g/dL Albumin 4.2 (3.5-5.0) g/dL Lipase 13 (8-78) U/L Urine Opiates Screen (Not Detect) Urine Fentanyl Screen (Not Detect) Ur Barbiturates Screen (Not Detect) Ur Phencyclidine Scrn (Not Detect) Ur Amphetamines Screen (Not Detect) U Benzodiazepines Scrn (Not Detect) Urine Cocaine Screen (Not Detect) U Marijuana (THC) Screen (Not Detect) Ethyl Alcohol < 10 mg/dL Influenza Type A (PCR) (Negative) Influenza Type B (PCR) (Negative) RSV RNA Qual (PCR) (Negative) SARS-CoV-2 RNA (RT-PCR) (Negative) 10/02/22 10/02/22 10/03/22 Range/Units 20:10 21:56 00:31 WBC (4.8-10.8) X10*3/uL RBC (4.60-5.80) X10*6/uL Hgb (14.0-18.0) g/dl Hct (42.0-52.0) % MCV (80.0-98.0) fL MCH (27.0-33.0) pg MCHC (31.0-36.0) g/dl RDW (11.0-16.0) % Plt Count (160-400) X10*3/uL MPV (9.4-12.4) fL Immature Gran % (Auto) (0.0-0.4) % Neut % (Auto) (45-73) % Lymph % (Auto) (20-40) % [place] % (Auto) (2-11) % Eos % (Auto) (0-4) % Baso % (Auto) (0-2) % Lymph # (Auto) (1.2-4.9) X10*3/uL [place] # (Auto) (0.1-1.2) X10*3/uL Eos # (Auto) (0.0-0.4) X10*3/uL Baso # (Auto) (0.0-0.2) X10*3/uL Abs Immat Gran (auto) (0.00-0.03) X10*3/uL Absolute Neuts (auto) (2.0-8.3) x10*3/uL Absolute Nucleated RBC (0.0-0.012) X10*3/uL Nucleated RBC % (auto) (0.0-0.2) /100WBC Sodium (135-145) mmol/L Potassium (3.3-5.1) mmol/L Chloride (96-108) mmol/L Carbon Dioxide (22-29) mmol/L Anion Gap (12-20) BUN (9-16) mg/dL Creatinine (0.5-1.4) mg/dL Estim Creat Clear Calc Estimated GFR Random Glucose (60-115) mg/dL Calcium (8.4-10.2) mg/dL Total Bilirubin (0.0-1.0) mg/dL Direct Bilirubin (0.0-0.5) mg/dL AST (5-37) U/L ALT (0-40) U/L Alkaline Phosphatase (39-117) U/L Troponin I High Sens 23.8 (<3.5-35.0) ng/L Total Protein (6.5-8.0) g/dL Albumin (3.5-5.0) g/dL Lipase (8-78) U/L Urine Opiates Screen Not Detected (Not Detect) Urine Fentanyl Screen Not Detected (Not Detect) Ur Barbiturates Screen Not Detected (Not Detect) Ur Phencyclidine Scrn Not Detected (Not Detect) Ur Amphetamines Screen Not Detected (Not Detect) U Benzodiazepines Scrn Not Detected (Not Detect) Urine Cocaine Screen Not Detected (Not Detect) U Marijuana (THC) Screen Not Detected (Not Detect) Ethyl Alcohol mg/dL Influenza Type A (PCR) NEGATIVE (Negative) Influenza Type B (PCR) NEGATIVE (Negative) RSV RNA Qual (PCR) NEGATIVE (Negative) SARS-CoV-2 RNA (RT-PCR) NEGATIVE (Negative) Discharge Plan Discharge Clinical Impression: Atypical chest pain, Depression Patient Disposition: Still a Patient Instructions: Chest Pain (ED), Depression (ED) Prescriptions: No Action Dulcolax (bisacodyl) Fleet Enema Glucose Gel Milk of Magnesia Miralax Senno Tylenol Vitamin D3 aspirin atorvastatin cetirizine cyclobenzaprine diclofenac sodium escitalopram oxalate famotidine fluticasone propionate gabapentin glucagon lisinopril metformin metoprolol succinate naproxen
[2022-10-02 19:58] VITALS: PULSE 94; RESP 20; TEMP 36.8; O2SAT 95
--- NOTE | 2022-10-02 20:13 | PC.NURSE ---
PATIENT CAME IN VIA [facility] ,PT EKG WAS TAKEN VS TAKEN ,BLOOD DRAWN AND SEND TO LAB,CALL SANTIAGO WITHIN REACH .
[2022-10-02 20:15] LABS: MANUAL DIFF FLAG NO
[2022-10-02 20:16] LABS: Basophils Absolute Auto 0.1 X10*3/uL (0.0-0.2); Basophils Percent Auto 0.9 % (0-2); Eosinophils Absolute Auto 0.1 X10*3/uL (0.0-0.4); Eosinophils Percent Auto 0.9 % (0-4); Hematocrit 47.1 % (42.0-52.0); Hemoglobin 15.3 g/dl (14.0-18.0); Imm Gran Abs Auto 0.02 X10*3/uL (0.00-0.03); Imm Gran Pct Auto 0.3 % (0.0-0.4); Lymphocytes Absolute Auto 1.2 X10*3/uL (1.2-4.9); Lymphocytes Percent Auto 15.4 % (20-40); Mean Corpuscular HGB Conc 32.5 g/dl (31.0-36.0); Mean Corpuscular Hemoglobin 28.9 pg (27.0-33.0); Mean Platelet Volume 10.5 fL (9.4-12.4); Monocytes Absolute Auto 0.6 X10*3/uL (0.1-1.2); Monocytes Percent Auto 7.3 % (2-11); Neutrophils Absolute Auto 5.8 x10*3/uL (2.0-8.3); Neutrophils Percent Auto 75.2 % (45-73); Platelet Count 233 X10*3/uL (160-400); Red Blood Count 5.29 X10*6/uL (4.60-5.80); Red Cell Distribution Width 13.2 % (11.0-16.0); White Blood Count 7.7 X10*3/uL (4.8-10.8)
[2022-10-02 20:20] VITALS: BP 161/98; PULSE 92; RESP 22; BMI 59.7
[2022-10-02] MEDS: Nitroglycerin 2 % Oint 1 GM Packet 1 INCH TRANSDERMA (20:27)
--- NOTE | 2022-10-02 20:31 | PC.NURSE ---
upon initial assessment patient tells me he was seen here and discharged about 4 days ago after he drank rubbing alcohol. patient reports this was mostly in an attempt to hurt himself as opposed to get drunk. he tells me that lately he has been struggling with wanting to live due to family issues and his daughter not wanting him to see her new baby. patient was in alcohol detox for a few years but states lately he has been drinking and has not been sober. denies any alcohol use today. states he does not feel safe to go home and does not want to go through something like drinking rubbing alcohol again. this RN recommended patient consult with [facility]/crisis team for further evaluation. patient is in agreement to this and states he would like the help. MD Pro made aware.
[2022-10-02 20:33] LABS: Alanine Aminotransferase 37 U/L (0-40); Albumin Level 4.2 g/dL (3.5-5.0); Alkaline Phosphatase 62 U/L (39-117); Anion Gap 15 (12-20); Aspartate Amino Transferase 37 U/L (5-37); Bilirubin Direct 0.3 mg/dL (0.0-0.5); Bilirubin Total 0.7 mg/dL (0.0-1.0); Blood Urea Nitrogen 8 mg/dL (9-16); Calcium 8.8 mg/dL (8.4-10.2); Carbon Dioxide 26 mmol/L (22-29); Chloride 101 mmol/L (96-108); Creatinine Clr Calc Pharmacy 194.4; Estimated Glomerular Filt Rate > 60; Glucose Random 141 mg/dL (60-115); Lipase 13 U/L (8-78); Potassium 4.3 mmol/L (3.3-5.1); Sodium 138 mmol/L (135-145); Total Protein 7.8 g/dL (6.5-8.0)
[2022-10-02 20:39] LABS: Troponin-I High Sensitivity 19.1 ng/L (<3.5-35.0)
[2022-10-02] MEDS: Ondansetron ODT 4 MG TAB.RAPDIS TRANSLINGU (20:52)
[2022-10-02 20:54] LABS: Influenza A PCR NEGATIVE (Negative); Influenza B PCR NEGATIVE (Negative); Resp Syncy Virus RNA Qual PCR NEGATIVE (Negative); SARS COV2 PCR INHOUSE NEGATIVE (Negative)
[2022-10-02 21:51] VITALS: BP 157/98; PULSE 94; RESP 16; TEMP 37; O2SAT 97
--- NOTE | 2022-10-02 22:01 | PC.NURSE ---
pt got change into the [facility] attire by this pct ,jp lock up in pod .
[2022-10-02 22:26] LABS: Troponin-I High Sensitivity 23.8 ng/L (<3.5-35.0)
[2022-10-02 22:28] LABS: Ethanol < 10 mg/dL
--- NOTE | 2022-10-02 23:05 | MHC.CARE ---
CARLOS ALBERTO wong
[2022-10-03] VITALS (7 sets, daily range): BP systolic 143–183; BP diastolic 85–116; PULSE 88–101; RESP 16–19; TEMP 36.3–36.6; O2SAT 91–97
--- NOTE | 2022-10-03 00:07 | MHC.CARE ---
Per [facility]- no clinician available until the morning. CARE team completed evaluation with pt, plan is for [place] bed[place]. ED attending physician aware of plan. Pt is agreeable at this time.
[2022-10-03 00:55] LABS: Amphetamine Screen Urine Not Detected (Not Detect); Barbiturates, Urine Not Detected (Not Detect); Benzodiazepines Screen Urine Not Detected (Not Detect); Cannabinoid Screen Urine Not Detected (Not Detect); Cocaine Screen Urine Not Detected (Not Detect); Fentanyl, urine Not Detected (Not Detect); Opiate Screen Urine Not Detected (Not Detect); Phencyclidine Screen Urine Not Detected (Not Detect)
--- NOTE | 2022-10-03 02:05 | ED_ITS ---
HPI - Chest Pain General Chief Complaint: Chest Pain Stated Complaint: cp Time Seen by Provider: 10/02/22 19:46 Source: patient Mode of arrival: EMS Limitations: no limitations Related Data Home Medications Medication Instructions Recorded Confirmed Dulcolax (bisacodyl) 10/10/20 Fleet Enema 10/10/20 Glucose Gel 10/10/20 Milk of Magnesia 10/10/20 Miralax 10/10/20 Senno 10/10/20 Tylenol 10/10/20 Vitamin D3 10/10/20 10/10/20 aspirin 10/10/20 atorvastatin 10/10/20 cetirizine 10/10/20 cyclobenzaprine 10/10/20 diclofenac sodium 10/10/20 escitalopram oxalate 10/10/20 famotidine 10/10/20 fluticasone propionate 10/10/20 gabapentin 10/10/20 glucagon 10/10/20 lisinopril 10/10/20 metformin 10/10/20 metoprolol succinate 10/10/20 naproxen 10/10/20 Allergies Allergy/AdvReac Type Severity Reaction Status Date / Time No Known Allergies Allergy Verified 10/10/20 18:05 [facility] Past Medical History Medical History Anxiety Arthritis Depression Diabetes mellitus, type 2 Herniated disc Hypertension Obesity PTSD (post-traumatic stress disorder) Sleep apnea Social History Social History Alcohol intake: never Advance Directives: No Advance Directives Information Provided: Yes Guardian: No Physical Exam Vital Signs: Vital Signs: Last Vital Signs Temp 97.9 F 10/03/22 00:35 Pulse 98 10/03/22 00:35 Resp 19 10/03/22 00:35 BP 149/85 H 10/03/22 00:35 Pulse Ox 97 10/03/22 00:35 O2 Del Method 10/03/22 00:35 BMI result Body Mass Index 59.7 Medications Administered Discontinued Medications Generic Name Dose Route Start Last Admin Trade Name Freq PRN Reason Stop Dose Admin Nitroglycerin 1 inch 10/02/22 19:52 10/02/22 20:27 Nitroglycerin 2 % Oint 1 Gm Packet TRANSDERMA 10/02/22 19:53 1 inch ONCE ONE Administration Ondansetron HCl 4 mg 10/02/22 20:30 10/02/22 20:52 Ondansetron Odt 4 Mg Tab.Rapdis TRANSLINGU 10/02/22 20:31 4 mg ONCE ONE Administration MDM - Chest Pain MDM Narrative Medical decision making narrative: Atypical chest pain no acute ischemic changes 2 sets of sensitive troponin negative also complaining of depression suicidal ideation will consult care team , advised for patient placement as inpatient psych in a.m. Medical Records Data Attestation: I reviewed the patient's medical records. Lab Data Attestation: I reviewed the patient's lab results. Result diagrams: 10/02/22 20:10 10/02/22 20:10 Labs: Lab Results 10/02/22 10/02/22 10/02/22 Range/Units 20:10 20:10 20:10 WBC 7.7 (4.8-10.8) X10*3/uL RBC 5.29 (4.60-5.80) X10*6/uL Hgb 15.3 (14.0-18.0) g/dl Hct 47.1 (42.0-52.0) % MCV 89.0 (80.0-98.0) fL MCH 28.9 (27.0-33.0) pg MCHC 32.5 (31.0-36.0) g/dl RDW 13.2 (11.0-16.0) % Plt Count 233 (160-400) X10*3/uL MPV 10.5 (9.4-12.4) fL Immature Gran % (Auto) 0.3 (0.0-0.4) % Neut % (Auto) 75.2 H (45-73) % Lymph % (Auto) 15.4 L (20-40) % [place] % (Auto) 7.3 (2-11) % Eos % (Auto) 0.9 (0-4) % Baso % (Auto) 0.9 (0-2) % Lymph # (Auto) 1.2 (1.2-4.9) X10*3/uL [place] # (Auto) 0.6 (0.1-1.2) X10*3/uL Eos # (Auto) 0.1 (0.0-0.4) X10*3/uL Baso # (Auto) 0.1 (0.0-0.2) X10*3/uL Abs Immat Gran (auto) 0.02 (0.00-0.03) X10*3/uL Absolute Neuts (auto) 5.8 (2.0-8.3) x10*3/uL Absolute Nucleated RBC 0.000 (0.0-0.012) X10*3/uL Nucleated RBC % (auto) 0.0 (0.0-0.2) /100WBC Sodium 138 (135-145) mmol/L Potassium 4.3 (3.3-5.1) mmol/L Chloride 101 (96-108) mmol/L Carbon Dioxide 26 (22-29) mmol/L Anion Gap 15 (12-20) BUN 8 L (9-16) mg/dL Creatinine 0.79 (0.5-1.4) mg/dL Estim Creat Clear Calc 194.4 Estimated GFR > 60 Random Glucose 141 H (60-115) mg/dL Calcium 8.8 (8.4-10.2) mg/dL Total Bilirubin 0.7 (0.0-1.0) mg/dL Direct Bilirubin 0.3 (0.0-0.5) mg/dL AST 37 (5-37) U/L ALT 37 (0-40) U/L Alkaline Phosphatase 62 (39-117) U/L Troponin I High Sens 19.1 (<3.5-35.0) ng/L Total Protein 7.8 (6.5-8.0) g/dL Albumin 4.2 (3.5-5.0) g/dL Lipase 13 (8-78) U/L Urine Opiates Screen (Not Detect) Urine Fentanyl Screen (Not Detect) Ur Barbiturates Screen (Not Detect) Ur Phencyclidine Scrn (Not Detect) Ur Amphetamines Screen (Not Detect) U Benzodiazepines Scrn (Not Detect) Urine Cocaine Screen (Not Detect) U Marijuana (THC) Screen (Not Detect) Ethyl Alcohol < 10 mg/dL Influenza Type A (PCR) (Negative) Influenza Type B (PCR) (Negative) RSV RNA Qual (PCR) (Negative) SARS-CoV-2 RNA (RT-PCR) (Negative) 11/20/22 11/20/22 11/21/22 Range/Units 20:10 21:56 00:31 WBC (4.8-10.8) X10*3/uL RBC (4.60-5.80) X10*6/uL Hgb (14.0-18.0) g/dl Hct (42.0-52.0) % MCV (80.0-98.0) fL MCH (27.0-33.0) pg MCHC (31.0-36.0) g/dl RDW (11.0-16.0) % Plt Count (160-400) X10*3/uL MPV (9.4-12.4) fL Immature Gran % (Auto) (0.0-0.4) % Neut % (Auto) (45-73) % Lymph % (Auto) (20-40) % [place] % (Auto) (2-11) % Eos % (Auto) (0-4) % Baso % (Auto) (0-2) % Lymph # (Auto) (1.2-4.9) X10*3/uL [place] # (Auto) (0.1-1.2) X10*3/uL Eos # (Auto) (0.0-0.4) X10*3/uL Baso # (Auto) (0.0-0.2) X10*3/uL Abs Immat Gran (auto) (0.00-0.03) X10*3/uL Absolute Neuts (auto) (2.0-8.3) x10*3/uL Absolute Nucleated RBC (0.0-0.012) X10*3/uL Nucleated RBC % (auto) (0.0-0.2) /100WBC Sodium (135-145) mmol/L Potassium (3.3-5.1) mmol/L Chloride (96-108) mmol/L Carbon Dioxide (22-29) mmol/L Anion Gap (12-20) BUN (9-16) mg/dL Creatinine (0.5-1.4) mg/dL Estim Creat Clear Calc Estimated GFR Random Glucose (60-115) mg/dL Calcium (8.4-10.2) mg/dL Total Bilirubin (0.0-1.0) mg/dL Direct Bilirubin (0.0-0.5) mg/dL AST (5-37) U/L ALT (0-40) U/L Alkaline Phosphatase (39-117) U/L Troponin I High Sens 23.8 (<3.5-35.0) ng/L Total Protein (6.5-8.0) g/dL Albumin (3.5-5.0) g/dL Lipase (8-78) U/L Urine Opiates Screen Not Detected (Not Detect) Urine Fentanyl Screen Not Detected (Not Detect) Ur Barbiturates Screen Not Detected (Not Detect) Ur Phencyclidine Scrn Not Detected (Not Detect) Ur Amphetamines Screen Not Detected (Not Detect) U Benzodiazepines Scrn Not Detected (Not Detect) Urine Cocaine Screen Not Detected (Not Detect) U Marijuana (THC) Screen Not Detected (Not Detect) Ethyl Alcohol mg/dL Influenza Type A (PCR) NEGATIVE (Negative) Influenza Type B (PCR) NEGATIVE (Negative) RSV RNA Qual (PCR) NEGATIVE (Negative) SARS-CoV-2 RNA (RT-PCR) NEGATIVE (Negative) Discharge Plan Discharge Clinical Impression: Atypical chest pain, Depression Patient Disposition: Still a Patient Instructions: Chest Pain (ED), Depression (ED) Prescriptions: No Action Dulcolax (bisacodyl) Fleet Enema Glucose Gel Milk of Magnesia Miralax Senno Tylenol Vitamin D3 aspirin atorvastatin cetirizine cyclobenzaprine diclofenac sodium escitalopram oxalate famotidine fluticasone propionate gabapentin glucagon lisinopril metformin metoprolol succinate naproxen
--- NOTE | 2022-10-03 03:37 | PC.NURSE ---
Pts mother, Dariela Linn, called for an update. Dariela updated on pts plan of care with pts verbal consent. Dariela requested a call back from pt. Pt reports will call back in the morning. Dariela can be reached at [phone]
--- NOTE | 2022-10-03 04:47 | PC.NURSE ---
Med req completed with patient. Pt reports not taking any medications except for Lexapro 20mg PO QD.
--- NOTE | 2022-10-03 06:47 | PC.NURSE ---
Pts mother, Dariela, called to speak with pt. Pt declined phone call at this time. Pt reports will call back later on today after meeting with the care team.
[2022-10-03] MEDS: Escitalopram Oxalate 20 MG TABLET PO (09:39)
--- NOTE | 2022-10-03 14:08 | MHC.CARE ---
CARE Team contacted [facility] for admission status. [facility] is currently reviewing pt?s evaluation.
--- NOTE | 2022-10-03 15:44 | MHC.CARE ---
[facility] as [facility] Pt is not required to sign a [facility] refusal of services. [facility] will pay bill for his stay.
[2022-10-03] MEDS: LORazepam 1 MG TABLET PO (18:31)
--- NOTE | 2022-10-03 19:32 | PC.NURSE ---
PT BP taken at 18:30 180/116 HR 101, CIWA scale =5 and Ativan 1 mg administered. 19:15 BP 183/101 HR 100 will call order clerk contacted, Clonidine 0.1 mg ordered once. Effect pending. Patient feels calm and in no acute distress. Denies chest pain and SOB.
[2022-10-03] MEDS: cloNIDine HCL 0.1 MG TABLET PO (19:36)
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
[2022-10-03] MEDS: Gabapentin 300 MG CAPSULE PO (21:11)
--- NOTE | 2022-10-03 22:25 | PC.NURSE ---
BP decreased to 143/101 HR 99 after Clonidine admin. Provider aware.
[2022-10-04 06:00] VITALS: BP 172/108; PULSE 97; RESP 14; TEMP 36.8; O2SAT 98
[2022-10-04] MEDS: Gabapentin 300 MG CAPSULE PO ×3 (08:03→23:04)
[2022-10-04] MEDS: Escitalopram Oxalate 20 MG TABLET PO (08:03)
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
--- NOTE | 2022-10-04 13:21 | P.CONHOSP_ITS ---
History of Present Illness Data of Consult Service Date: 10/04/22 Requesting physician: Vanesa Mitchell Primary Care Provider: Unknown Physician HPI Reason for consult: htn, ble edema 52 year old male with history of TERRIE compliant with CPAP, diet controlled type 2 diabetes, untreated hypertension, lumbar disc herniation, bilateral osteoarthritis of the knees, PTSD, anxiety, depression, and morbid obesity admitted to Psychiatry with consult placed to Medicine for management of hy pertension and bilateral lower extremity edema. The patient states that he [facility] blood [facility] but no longer takes these medications, does have follow-up within the month with his PCP. He states the lower extremity edema has been ongoing for many months, but worse over the last month. He has reported positional lightheadedness with occasional shortness of breath and is reason for presenting to the ED 2 days ago was chest pressure that woke him in the middle of the night with associated shortness of breath. He described a retrosternal squeezing sensation. While in the ED, EKG showed sinus rhythm with occasional PVCs, rate 90 with left anterior fascicular block and possible right ventricular conduction delay but without any ST/T-wave abnormality. CXR was unremarkable without any acute cardiopulmonary disease, edema, or effusions. Troponins were flat x2. Glucose 141. Renal function and electrolytes normal. Review of Systems Review of Systems: General: No fevers, malaise, unintentional weight loss HEENT: No blurred vision, diplopia. Cardiovascular: No chest pain, palpitations, +ble edema Respiratory: +sob. No wheezing, cough GI: No abdominal pain, nausea, vomiting, diarrhea, constipation, melena, hematochezia : No dysuria, hematuria, increased urinary frequency MSK: +bilateral knee pain, +back pain Neuro: +positional lightheadedness. No headaches, weakness, paresthesias Skin: No rashes or lesions [facility] Medical History Anxiety Arthritis Depression Diabetes mellitus, type 2 Herniated disc Hypertension Obesity PTSD (post-traumatic stress disorder) Sleep apnea Family History (Updated 10/04/22 @ 13:30 by TARYN Hernadez) Mother Diabetes Social History Household Members: None Housing: Apartment Do you presently have visiting nurse or other home services: No Alcohol intake: current Alcohol intake frequency: former alcohol drinker Patient Tobacco Use Status: Never used Tobacco Smoked in Last 30 Days: No Use of substances other than those prescribed or required for medical reasons: No Currently Displaying Signs/Symptoms of Drug Intoxication Withdrawal: No Have you been hit, kicked, punched, or otherwise hurt by someone within the past year? If so, by whom?: No Do you feel safe in your current relationship?: No Is there a partner from a previous relationship who is making you feel unsafe now?: No Are you made to feel afraid or neglected: No [employer]ism Healthcare Practices: Jehovah witness Advance Directives: No Advance Directives Information Provided: Yes Guardian: No Do you have thoughts of harming others: None Do you have a plan to hurt others: No Plan Recently lost weight without trying: No Nutrition Risks: No Nutritional Risk Meds Allergies Allergy/AdvReac Type Severity Reaction Status Date / Time No Known Allergies Allergy Verified 10/10/20 18:05 Active Medications: Current Medications Acetaminophen (Acetaminophen 325 Mg Tablet) 650 mg PO Q6H PRN PRN Reason: Headache/Pain Mild Scale (1-3) Al Hydroxide/Mg Hydroxide (Magnesium Hydrox/Alum Hydrox 30 Ml Oral.Susp) 30 ml PO Q6H PRN PRN Reason: Heartburn/Nausea Dextrose (Dextrose 50 % 25 Gm/50 Ml Syringe) 25 gm IVPUSH Q15M PRN; Protocol PRN Reason: per Hypoglycemia Standing Ord. Escitalopram Oxalate (Escitalopram Oxalate 20 Mg Tablet) 20 mg PO DAILY [facility] Last Admin: 10/04/22 08:03 Dose: 20 mg Gabapentin (Gabapentin 300 Mg Capsule) 300 mg PO TID [facility] Stop: 10/04/22 23:50 Last Admin: 10/04/22 08:03 Dose: 300 mg Gabapentin (Gabapentin 300 Mg Capsule) 300 mg PO BID [facility] Stop: 10/06/22 23:50 Glucose (Glucose Gel 15 Gm Gel..Gram.) 15 gm PO Q15M PRN; Protocol PRN Reason: per Hypoglycemia Standing Ord. Hydrochlorothiazide (Hydrochlorothiazide 12.5 Mg Tablet) 12.5 mg PO DAILY [facility]; Protocol Hydroxyzine HCl (Hydroxyzine Hcl 25 Mg Tablet) 25 mg PO Q6H PRN PRN Reason: Anxiety Insulin Human Lispro (Insulin Lispro 100 Unit/Ml 3 Ml Vial) 0 unit SUBCUT QIDACHS TOBY; Protocol Lisinopril (Lisinopril 10 Mg Tablet) 10 mg PO BEDTIME TOBY; Protocol Lorazepam (Lorazepam 1 Mg Tablet) 1 mg PO Q4H PRN PRN Reason: Ciwa 5-9 Last Admin: 10/03/22 18:31 Dose: 1 mg Lorazepam (Lorazepam 1 Mg Tablet) 2 mg PO Q4H PRN PRN Reason: CIWA 10 or higher Magnesium Hydroxide (Milk Of Magnesia 30 Ml Oral.Susp) 30 ml PO DAILY PRN PRN Reason: Constipation Nicotine Polacrilex (Nicotine Polacrilex 2 Mg Gum) 4 mg BUCCAL Q2H PRN PRN Reason: Nicotine Cravings Trazodone HCl (Trazodone Hcl 50 Mg Tablet) 50 mg PO BEDTIME PRN PRN Reason: Insomnia Home Medications Medication Instructions Recorded Confirmed Last Taken Type escitalopram oxalate 1 tab PO DAILY 10/10/20 10/03/22 Unknown History Physical Exam Vital Signs and Narrative: Vital Signs: Last Vital Signs Temp 98.2 F 10/04/22 06:00 Pulse 97 10/04/22 06:00 Resp 14 10/04/22 06:00 BP 172/108 H 10/04/22 06:00 Pulse Ox 98 10/04/22 06:00 O2 Del Method 10/04/22 06:00 BMI result Body Mass Index 59.7 Constitutional - Awake and Alert, No apparent distress Eyes - PERRLA, EOMI Cardiovascular - S1S2, RRR, 1+ ble edema Respiratory - Normal lung expansion, Normal respiratory effort, No respiratory distress, CTA bilaterally Neck: Supple, no JVD, no carotid bruits Extremities - no calf tenderness bilaterally Skin - Warm/Dry Neurological - Alert & oriented x3, CN II-XII in tact, 5/5 strength BUE and BLE Psychological - Appropriate affect Results Labs CBC and Chem 7: 10/02/22 20:10 10/02/22 20:10 Assessment and Plan (1) Depression: Status: Acute Plan 52 year old male with history of TERRIE compliant with CPAP, diet controlled type 2 diabetes, untreated hypertension, lumbar disc herniation, bilateral osteoarthritis of the knees, PTSD, anxiety, depression, and morbid obesity adm itted to Psychiatry with consult placed to Medicine for management of hypertension and bilateral lower extremity edema. #Hypertension- asymptomatic -Renal function and electrolytes normal -Likely complicated by TERRIE- strict compliance with CPAP advised -Initiate HCTZ 12.5mg every morning which should help with patient's edema. Also initiate Lisinopril 10 mg at bedtime for management of overnight, waking hypertension -Close monitoring of BPs -Recheck renal function and electrolytes in 1 week #BLE edema- chronic, longstanding -Renal function normal, no evidence of pulmonary effusion/edema on CXR to suggest acute CHF exacerbation -Echo as below -Likely, large component related to dependent edema/venous insufficiency secondary to morbid obesity -HCTZ as above and recommend TEDS and leg elevation and ambulation #Suspect Right heart strain/dysfunction/pulmonary hypertension -Given BLE edema, chest pain, positional lightheadedness, SWAN, orthopnea, and severe TERRIE. CXR normal as above -echocardiogram ordered -Will also check orthostatic VS -Continue CPAP #Diet controlled type 2 diabetes -Hgb A1c ordered -POC glucose -Diabetic diet -Humalog on SSI for hyperglycemia #morbid obesity with BMI >59 -Discussed weight loss efforts with patient -Discussed close relationship between his weight and chroonic medical conditions -Recommend diabetic diet 2000 calories and encourage ambulation/activity while on unit Thank you for this consult. Will following for monitoring of blood pressure/anti hypertensive medications and results. Please contact with any questions.
[2022-10-04 14:00] VITALS: BP 144/94; PULSE 98
--- NOTE | 2022-10-04 14:00 | CA_ITS ---
Transthoracic Echocardiogram Patient (Last, First, Middle): Miguel Ángel Calderon, Gender: Male Date of : 1970 Age: 52 Procedure Date: 10/04/2022 Procedure Type: Transthoracic Echocardiogram Location: M5 Height: 180.34 cm Weight: 190.51 kg BSA: 2.89 m2 Heart Rate: bpm BP: 142 / 84 mmHg Timber Spotter: Referring MD: Judie CENTENO Symptoms: marion, lightheadedness, severe TERRIE Study Quality: Technically Difficult/Contrast ECG Rhythm: Sinus tachycardia Conclusions: - The left ventricular systolic function is mildly decreased. The visually estimated ejection fraction is between 45-50%. - No obvious valvular pathology seen on this study. Findings Procedure Information Contrast agent, definity, is being given per protocol without apparent complications. Left Ventricle Normal left ventricular cavity size. There is mildly increased left ventricular wall thickness. The left ventricular systolic function is mildly decreased. The visually estimated ejection fraction is between 45-50%. There is mild global hypokinesis. Right Ventricle The right ventricle was not well visualized. Normal right ventricular cavity size. Atria The left atrium is normal in size. The right atrium was not well visualized. Aortic Valve The aortic valve was not well visualized. There is no aortic valve stenosis. There is no aortic valve regurgitation. Mitral Valve The mitral valve appears normal. There is no mitral valve regurgitation. There is no mitral valve stenosis. Pulmonic Valve The pulmonic valve is likely normal. Tricuspid Valve There is no tricuspid valve regurgitation. Tricuspid regurgitation envelope is inadequate for calculation of right ventricular systolic pressure. Great Vessels The asc aorta is normal in size. Venous The inferior vena cava is normal in size and collapses greater than 50% with inspiration. Pericardium/Pleural There is no evidence of pericardial effusion. Prior Study Comparison No prior study available for comparison. Recommendations, Care & Conclusions No obvious valvular pathology seen on this study. Measurements 2D Linear Measurements IVSd: 1.24 0.6-0.9/0.6-1.0 cm LVIDd: 5.60 3.9-5.3/4.2-5.9 cm LVIDd Index: 1.94 2.4-3.2/2.2-3.1 cm/m2 LVIDs: 4.11 2.0-3.6 cm LVPWd: 1.24 0.7-1.1 cm Ao Root: 4.20 2.1-3.5 cm LA Diam: 3.90 2.7-3.8/3.0-4.0 cm LAIDs Index: 1.35 1.5-2.3 cm/m2 LV Mass: 365.97 67-162/88-224 g LV Mass Index: 126.63 43-95/49-115 g/m2 LVOT Diam: 2.70 3.0+(-)1.3 cm 2D Systolic Function EF 4C: 50.60 >55% EF 2C: 47.10 >55% EF BiP: 49.60 >55% Mitral Valve MV Pk E: 0.47 MV PK A: 0.78 MV Decel Time: 81.00 E/A: 0.60 E'Lateral: 7.29 E'Medial: 7.62 E/E' Med: 6.10 E/E' Lat: 6.40 PHT: 24.00 MVA PHT: 9.17 Decel Pratt: 5.75 Aortic Valve AoV Pk Brian: 0.92 AoV Mn Brian: 0.67 AoV VTI: 0.14 AoV Pk Grad: 3.00 Aov Mn Grad: 2.00 ANNI Cont.VTI: 4.49 LVOT LVOT Pk Brian: 0.58 LVOT Mn Brian: 0.41 LVOT VTI: 0.11 LVOT Pk Grad: 1.00 LVOT Mn Grad: 1.00 LVOT Diam: 2.70 LVOT Area: 5.73 Diastolic Function MV Pk E: 0.47 MV Pk A: 0.78 E/A: 0.60 E'Medial: 7.62 E/E' Med: 6.10 E' Laterial: 7.29 E/E' Lat: 6.40 Tricuspid Valve TR Pk Brian: 1.82 TR Pk Grad: 13.00 RA Press: 3.00 Great Vessels Aorta Ao Root-2D: 4.20 2.0-3.7 cm Ao Asc: 3.80 2.1-3.4 cm Pulmonary Valve PV Pk Brian: 0.73 Peak PV Grad: 2.00 Updated in Other Vendor System with Status of Final Ilan Waldrop MD electronically signed on 10/05/2022 11:38:54 AM with status of Final
--- NOTE | 2022-10-04 14:20 | PC.NURSE ---
another staff member reported pt to appear diaphoretic. met with pt. did not look diaphoretic at this time. did give him and ativan po due to high bp and waiting on hctz from pharmacy. he states he has mpain when walking in his knee due to arthritis and states being a big vinayak when ambulating that happens. states normally uses a cane.
[2022-10-04] MEDS: hydroCHLOROthiazide 12.5 MG TABLET PO (14:29)
[2022-10-04 15:11] LABS: Estimated Average Glucose 137 mg/dL; Hemoglobin A1c % 6.4 %
[2022-10-04 15:22] LABS: B Type Natriuretic Peptide 87 pg/mL (<100)
[2022-10-04 16:25] VITALS: BP 146/72; PULSE 109; TEMP 36.1
[2022-10-04 17:34] LABS: Glucose, Whole Blood 171 mg/dL (60-115)
[2022-10-04] MEDS: Insulin Lispro 100 UNIT/ML 3 ML VIAL SUBCUT (17:40)
[2022-10-04 23:00] VITALS: BP 181/103; PULSE 105
[2022-10-04] MEDS: lisinopriL 10 MG TABLET PO (23:04)
[2022-10-04 23:33] LABS: Glucose, Whole Blood 140 mg/dL (60-115)
[2022-10-05 07:35] VITALS: BP 122/97; PULSE 109; TEMP 36.6; O2SAT 95
[2022-10-05 08:03] LABS: Glucose, Whole Blood 150 mg/dL (60-115)
[2022-10-05] MEDS: Escitalopram Oxalate 20 MG TABLET PO (08:24)
[2022-10-05] MEDS: Multivitamin TABLET 1 TAB PO (08:24)
[2022-10-05] MEDS: Thiamine HCL 100 MG TABLET PO (08:24)
--- NOTE | 2022-10-05 09:09 | P.PNPSI_ITS ---
Subjective Subjective Date of Service: 10/05/22 Reason For Visit: depression Subjective Notes: Conditional Voluntary Interim History: Pt reports he relapsed on alcohol after 3 years of sobriety. Pt reports he was missing doses of lexapro and at times doubling on the dose. Pt reports sleeping well with CPAP. He reports not taking HTN meds in a while. Today, he denies suicidal ideation. He continues to endorse depressed mood. NO VH/AH. Medication Compliance: Yes Side effects from medications: No Attending Groups: Yes Review of Systems Review of Systems General: No fevers, malaise, unintentional weight loss HEENT: No blurred vision, diplopia. Cardiovascular: No chest pain, palpitations, +ble edema Respiratory: +sob. No wheezing, cough GI: No abdominal pain, nausea, vomiting, diarrhea, constipation, melena, hematochezia : No dysuria, hematuria, increased urinary frequency MSK: +bilateral knee pain, +back pain Neuro: +positional lightheadedness. No headaches, weakness, paresthesias Skin: No rashes or lesions Yes all other systems are reviewed and are negative Reports behavioral changes Psychiatric: Reports anxiety, Reports behavioral changes and Reports suicidal i deation (denies) Mental Status Exam Mental Status Exam Narrative: Appearance: MO, casually groomed, good hygiene, in NAD Behavior: cooperative Psychomotor: no agitation or retardation noted Speech: clear, normal rate/rhythm/volume, spontaneous TP: linear TC: no s/s of psychosis, wanting to care for himself now and get back in track with recovery. Mood: better Affect: brighter, congruent SI: none HI: none VH/AH: none Delusions: none Insight/judgment: fair x 2. Memory/cog: alert, oriented x 3. grossly intact. Diagnostics Vital Signs (24Hr): Vital Signs - 24 hr 10/04/22 14:00 10/04/22 16:25 10/04/22 23:00 Temperature 96.9 F Pulse Rate 98 109 H 105 H Blood Pressure 144/94 H 146/72 H 181/103 H Pulse Oximetry Oxygen Delivery Method 10/05/22 07:35 Temperature 97.9 F Pulse Rate 109 H Blood Pressure 122/97 H Pulse Oximetry 95 Oxygen Delivery Method Room Air BMI result Body Mass Index 59.7 Labs Results: 10/02/22 20:10 10/02/22 20:10 Labs: Laboratory Results - last 48 hr 10/04/22 10/04/22 10/04/22 14:33 14:33 17:26 POC Glucose 171 H Estimat Average Glucose 137 Hemoglobin A1c % 6.4 B-Natriuretic Peptide 87 10/04/22 10/05/22 23:12 07:55 POC Glucose 140 H 150 H Estimat Average Glucose Hemoglobin A1c % B-Natriuretic Peptide Imaging Radiology Impressions: ITS Impressions Chest X-Ray 10/02/22 20:15 IMPRESSION: Chronic appearing changes similar to the prior study. No acute superimposed process. Medications Medications Current Medications Acetaminophen (Acetaminophen 325 Mg Tablet) 650 mg PO Q6H PRN PRN Reason: Headache/Pain Mild Scale (1-3) Al Hydroxide/Mg Hydroxide (Magnesium Hydrox/Alum Hydrox 30 Ml Oral.Susp) 30 ml PO Q6H PRN PRN Reason: Heartburn/Nausea Clonidine HCl (Clonidine Hcl 0.1 Mg Tablet) 0.1 mg PO Q4H PRN; Protocol PRN Reason: SBP=>160 or DBP=>90 Dextrose (Dextrose 50 % 25 Gm/50 Ml Syringe) 25 gm IVPUSH Q15M PRN; Protocol PRN Reason: per Hypoglycemia Standing Ord. Escitalopram Oxalate (Escitalopram Oxalate 20 Mg Tablet) 20 mg PO DAILY [facility] Last Admin: 10/05/22 08:24 Dose: 20 mg Gabapentin (Gabapentin 300 Mg Capsule) 300 mg PO BID [facility] Stop: 10/06/22 23:50 Glucose (Glucose Gel 15 Gm Gel..Gram.) 15 gm PO Q15M PRN; Protocol PRN Reason: per Hypoglycemia Standing Ord. Hydrochlorothiazide (Hydrochlorothiazide 12.5 Mg Tablet) 12.5 mg PO DAILY [facility]; Protocol Last Admin: 10/04/22 14:29 Dose: 12.5 mg Hydroxyzine HCl (Hydroxyzine Hcl 25 Mg Tablet) 25 mg PO Q6H PRN PRN Reason: Anxiety Insulin Human Lispro (Insulin Lispro 100 Unit/Ml 3 Ml Vial) 0 unit SUBCUT QIDACHS [facility]; Protocol Last Admin: 10/05/22 08:41 Dose: Not Given Lisinopril (Lisinopril 10 Mg Tablet) 10 mg PO BEDTIME [facility]; Protocol Last Admin: 10/04/22 23:04 Dose: 10 mg Lorazepam (Lorazepam 1 Mg Tablet) 1 mg PO Q4H PRN PRN Reason: Ciwa 5-9 Last Admin: 10/03/22 18:31 Dose: 1 mg Lorazepam (Lorazepam 1 Mg Tablet) 2 mg PO Q4H PRN PRN Reason: CIWA 10 or higher Magnesium Hydroxide (Milk Of Magnesia 30 Ml Oral.Susp) 30 ml PO DAILY PRN PRN Reason: Constipation Multivitamins/Vitamin C (Multivitamin Tablet) 1 tab PO DAILY [facility] Last Admin: 10/05/22 08:24 Dose: 1 tab Nicotine Polacrilex (Nicotine Polacrilex 2 Mg Gum) 4 mg BUCCAL Q2H PRN PRN Reason: Nicotine Cravings Thiamine HCl (Thiamine Hcl 100 Mg Tablet) 100 mg PO DAILY [facility] Last Admin: 10/05/22 08:24 Dose: 100 mg Trazodone HCl (Trazodone Hcl 50 Mg Tablet) 50 mg PO BEDTIME PRN PRN Reason: Insomnia Allergies Allergies Allergy/AdvReac Type Severity Reaction Status Date / Time No Known Allergies Allergy Verified 10/10/20 18:05 Assessment & Plan Assessment & Plan (1) Depression: Status: Acute Code(s): F32.A - Depression, unspecified (2) Alcohol use disorder, severe, dependence: Status: Acute Code(s): F10.20 - Alcohol dependence, uncomplicated Plan 52 yo male reports relapse on alcohol after 3 years of sobriety and misuse of Lexapro with resulting increase in symptoms and SI. Plan: Continue Lexapro Referral for out pt psychotherapy [facility] one tab daily Thiamine 100 mg daily Collateral contact. Hospitalist consult-HTN 10/05 continue meds, added clonidine for prn HTN, but monitor CIWA and alcohol withdrawal- I spent minutes with the patient and/or on the patient floor today, greater than?50% of which was spent counseling/coordinating care. Reason for contiued inpatient stay Substantial Risk for: harm to self
[2022-10-05] MEDS: hydroCHLOROthiazide 12.5 MG TABLET PO (11:10)
[2022-10-05 11:46] LABS: Glucose, Whole Blood 96 mg/dL (60-115)
[2022-10-05 16:20] VITALS: BP 122/70; PULSE 100; RESP 16; TEMP 35.1; O2SAT 92
[2022-10-05 17:39] LABS: Glucose, Whole Blood 110 mg/dL (60-115)
--- NOTE | 2022-10-05 18:42 | PC.NURSE ---
Pt submitted a Three Day Notice on Monday10/05/2022 up on Monday10/11/2022.
[2022-10-05] MEDS: Gabapentin 300 MG CAPSULE PO (19:21)
[2022-10-05] MEDS: lisinopriL 10 MG TABLET PO (19:21)
[2022-10-05] MEDS: Loperamide HCl 2 MG CAPSULE PO (20:02)
[2022-10-05 20:23] LABS: Glucose, Whole Blood 135 mg/dL (60-115)
[2022-10-05 20:44] VITALS: BP 128/58; PULSE 110
--- NOTE | 2022-10-06 07:51 | P.PNPSI_ITS ---
Subjective Subjective Date of Service: 10/06/22 Reason For Visit: depression Subjective Notes: Conditional Voluntary and 3 Day Interim History: Pt reports he is feeling better. He states he is sleeping well with CPAP. He denies SI/HI. He reports he is less depressed and thinks he can be discharge soon. Therefore, he states he signed 3 day last evening. Per nursing, no behavioral concerns. taking meds as prescribed. BP continues to be elevated- prn clonidine. Medication Compliance: Yes Side effects from medications: No Review of Systems Review of Systems General: No fevers, malaise, unintentional weight loss HEENT: No blurred vision, diplopia. Cardiovascular: No chest pain, palpitations, +ble edema Respiratory: +sob. No wheezing, cough GI: No abdominal pain, nausea, vomiting, diarrhea, constipation, melena, hematochezia : No dysuria, hematuria, increased urinary frequency MSK: +bilateral knee pain, +back pain Neuro: +positional lightheadedness. No headaches, weakness, paresthesias Skin: No rashes or lesions Yes all other systems are reviewed and are negative Reports behavioral changes Psychiatric: Reports anxiety, Reports behavioral changes and Reports suicidal ideation (denies) Mental Status Exam Mental Status Exam Narrative: Appearance: MO, casually groomed, good hygiene, in NAD Behavior: cooperative Psychomotor: no agitation or retardation noted Speech: clear, normal rate/rhythm/volume, spontaneous TP: linear TC: no s/s of psychosis, wanting to care for himself now and get back in track with recovery. Mood: better Affect: brighter, congruent SI: none HI: none VH/AH: none Delusions: none Insight/judgment: fair x 2. Memory/cog: alert, oriented x 3. grossly intact. Diagnostics Vital Signs (24Hr): Vital Signs - 24 hr 10/06/22 08:30 10/06/22 18:00 Temperature 96.7 F L 98.3 F Pulse Rate 88 74 Respiratory Rate 18 Blood Pressure 123/56 L 181/95 H Pulse Oximetry 97 Oxygen Delivery Method Room Air BMI result Body Mass Index 59.7 Labs Results: 10/02/22 20:10 10/02/22 20:10 Labs: Laboratory Results - last 48 hr 10/05/22 10/05/22 10/05/22 07:55 11:43 17:34 POC Glucose 150 H 96 110 10/05/22 10/06/22 10/06/22 20:19 08:11 12:54 POC Glucose 135 H 116 H 107 10/06/22 10/06/22 17:15 20:28 POC Glucose 125 H 143 H Imaging Radiology Impressions: ITS Impressions Chest X-Ray 10/02/22 20:15 IMPRESSION: Chronic appearing changes similar to the prior study. No acute superimposed process. Medications Medications Current Medications Acetaminophen (Acetaminophen 325 Mg Tablet) 650 mg PO Q6H PRN PRN Reason: Headache/Pain Mild Scale (1-3) Al Hydroxide/Mg Hydroxide (Magnesium Hydrox/Alum Hydrox 30 Ml Oral.Susp) 30 ml PO Q6H PRN PRN Reason: Heartburn/Nausea Clonidine HCl (Clonidine Hcl 0.1 Mg Tablet) 0.1 mg PO Q4H PRN; Protocol PRN Reason: SBP=>160 or DBP=>90 Dextrose (Dextrose 50 % 25 Gm/50 Ml Syringe) 25 gm IVPUSH Q15M PRN; Protocol PRN Reason: per Hypoglycemia Standing Ord. Escitalopram Oxalate (Escitalopram Oxalate 20 Mg Tablet) 20 mg PO DAILY [facility] Last Admin: 10/06/22 08:50 Dose: 20 mg Glucose (Glucose Gel 15 Gm Gel..Gram.) 15 gm PO Q15M PRN; Protocol PRN Reason: per Hypoglycemia Standing Ord. Hydrochlorothiazide (Hydrochlorothiazide 12.5 Mg Tablet) 12.5 mg PO DAILY [facility]; Protocol Last Admin: 10/06/22 08:51 Dose: 12.5 mg Hydroxyzine HCl (Hydroxyzine Hcl 25 Mg Tablet) 25 mg PO Q6H PRN PRN Reason: Anxiety Insulin Human Lispro (Insulin Lispro 100 Unit/Ml 3 Ml Vial) 0 unit SUBCUT QIDACHS [facility]; Protocol Last Admin: 10/06/22 21:28 Dose: Not Given Lisinopril (Lisinopril 10 Mg Tablet) 10 mg PO BEDTIME [facility]; Protocol Last Admin: 10/06/22 21:26 Dose: 10 mg Loperamide HCl (Loperamide Hcl 2 Mg Capsule) 2 mg PO Q4H PRN PRN Reason: Diarrhea Last Admin: 10/05/22 20:02 Dose: 2 mg Lorazepam (Lorazepam 1 Mg Tablet) 1 mg PO Q4H PRN PRN Reason: Ciwa 5-9 Last Admin: 10/06/22 21:27 Dose: 1 mg Lorazepam (Lorazepam 1 Mg Tablet) 2 mg PO Q4H PRN PRN Reason: CIWA 10 or higher Magnesium Hydroxide (Milk Of Magnesia 30 Ml Oral.Susp) 30 ml PO DAILY PRN PRN Reason: Constipation Multivitamins/Vitamin C (Multivitamin Tablet) 1 tab PO DAILY [facility] Last Admin: 10/06/22 08:51 Dose: 1 tab Nicotine Polacrilex (Nicotine Polacrilex 2 Mg Gum) 4 mg BUCCAL Q2H PRN PRN Reason: Nicotine Cravings Thiamine HCl (Thiamine Hcl 100 Mg Tablet) 100 mg PO DAILY [facility] Last Admin: 10/06/22 08:50 Dose: 100 mg Trazodone HCl (Trazodone Hcl 50 Mg Tablet) 50 mg PO BEDTIME PRN PRN Reason: Insomnia Last Admin: 10/06/22 21:27 Dose: 50 mg Allergies Allergies Allergy/AdvReac Type Severity Reaction Status Date / Time No Known Allergies Allergy Verified 10/10/20 18:05 Assessment & Plan Assessment & Plan (1) Depression: Status: Acute Code(s): F32.A - Depression, unspecified (2) Alcohol use disorder, severe, dependence: Status: Acute Code(s): F10.20 - Alcohol dependence, uncomplicated Plan 52 yo male reports relapse on alcohol after 3 years of sobriety and misuse of Lexapro with resulting increase in symptoms and SI. Plan: Continue Lexapro Referral for out pt psychotherapy [facility] one tab daily Thiamine 100 mg daily Collateral contact. Hospitalist consult-HTN 10/05 continue meds, added clonidine for prn HTN, but monitor CIWA and alcohol withdrawal- 10/06 continue current meds. pt denies s/s of withdrawal. I spent minutes with the patient and/or on the patient floor today, greater than?50% of which was spent counseling/coordinating care. Reason for contiued inpatient stay Substantial Risk for: harm to self
[2022-10-06 08:15] LABS: Glucose, Whole Blood 116 mg/dL (60-115)
[2022-10-06 08:30] VITALS: BP 123/56; PULSE 88; TEMP 35.9
[2022-10-06] MEDS: Gabapentin 300 MG CAPSULE PO ×2 (08:50→21:26)
[2022-10-06] MEDS: Escitalopram Oxalate 20 MG TABLET PO (08:50)
[2022-10-06] MEDS: Thiamine HCL 100 MG TABLET PO (08:50)
[2022-10-06] MEDS: Multivitamin TABLET 1 TAB PO (08:51)
[2022-10-06] MEDS: hydroCHLOROthiazide 12.5 MG TABLET PO (08:51)
[2022-10-06 12:58] LABS: Glucose, Whole Blood 107 mg/dL (60-115)
[2022-10-06 17:19] LABS: Glucose, Whole Blood 125 mg/dL (60-115)
[2022-10-06 18:00] VITALS: BP 181/95; PULSE 74; RESP 18; TEMP 36.8; O2SAT 97
[2022-10-06 20:32] LABS: Glucose, Whole Blood 143 mg/dL (60-115)
[2022-10-06] MEDS: lisinopriL 10 MG TABLET PO (21:26)
[2022-10-06] MEDS: traZODone HCL 50 MG TABLET PO (21:27)
[2022-10-06] MEDS: LORazepam 1 MG TABLET PO (21:27)
[2022-10-07 08:30] VITALS: BP 123/76; PULSE 100; TEMP 36.3; O2SAT 96
[2022-10-07] MEDS: Thiamine HCL 100 MG TABLET PO (08:57)
[2022-10-07] MEDS: Escitalopram Oxalate 20 MG TABLET PO (08:57)
[2022-10-07] MEDS: hydroCHLOROthiazide 12.5 MG TABLET PO (08:57)
[2022-10-07 08:58] LABS: Glucose, Whole Blood 143 mg/dL (60-115)
[2022-10-07] MEDS: Multivitamin TABLET 1 TAB PO (09:00)
[2022-10-07 13:28] LABS: Glucose, Whole Blood 144 mg/dL (60-115)
--- NOTE | 2022-10-07 14:31 | P.PNPSI_ITS ---
Subjective Subjective Date of Service: 10/07/22 Reason For Visit: depression Subjective Notes: Conditional Voluntary and 3 Day Healthcare Proxy: No Guardianship: No Medical Problems Affecting Mental Status: No Interim History: Three day notice filed, I am feeling much better. Engaged in milieu, no current issues or concerns. 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 Encouraged self care and focus on health. I will. Medication Compliance: Yes Side effects from medications: No Attending Groups: Yes Review of Systems Acute medical concerns: No Medical Review of Systems: unchanged Mental Status Exam Mental Status Exam Patient Appearance: Appropriate Patient Orientation: Person, Place, Time and Situation Patient Behavior: Talkative and Good Eye Contact Mood Description: Apprehensive Affect Description: Flat Patient Cognition Impaired: No Ability to Follow Directions: Good Speech Pattern: Spontaneous Speech Memory Description: Intact Hallucinations: None Delusions: Not Present Thought Process: Rumination Thought Content: positive for Perseveration Judgement: Good Diagnostics Vital Signs (24Hr): Vital Signs - 24 hr 10/06/22 18:00 10/07/22 08:30 Temperature 98.3 F 97.3 F Pulse Rate 74 100 Respiratory Rate 18 Blood Pressure 181/95 H 123/76 Pulse Oximetry 97 96 Oxygen Delivery Method Room Air BMI result Body Mass Index 59.7 Labs Results: 10/02/22 20:10 10/02/22 20:10 Labs: Laboratory Results - last 48 hr 10/05/22 10/05/22 10/06/22 17:34 20:19 08:11 POC Glucose 110 135 H 116 H 10/06/22 10/06/22 10/06/22 12:54 17:15 20:28 POC Glucose 107 125 H 143 H 10/07/22 10/07/22 08:52 13:22 POC Glucose 143 H 144 H Imaging Radiology Impressions: ITS Impressions Chest X-Ray 10/02/22 20:15 IMPRESSION: Chronic appearing changes similar to the prior study. No acute superimposed process. Medications Medications Current Medications Acetaminophen (Acetaminophen 325 Mg Tablet) 650 mg PO Q6H PRN PRN Reason: Headache/Pain Mild Scale (1-3) Al Hydroxide/Mg Hydroxide (Magnesium Hydrox/Alum Hydrox 30 Ml Oral.Susp) 30 ml PO Q6H PRN PRN Reason: Heartburn/Nausea Clonidine HCl (Clonidine Hcl 0.1 Mg Tablet) 0.1 mg PO Q4H PRN; Protocol PRN Reason: SBP=>160 or DBP=>90 Dextrose (Dextrose 50 % 25 Gm/50 Ml Syringe) 25 gm IVPUSH Q15M PRN; Protocol PRN Reason: per Hypoglycemia Standing Ord. Escitalopram Oxalate (Escitalopram Oxalate 20 Mg Tablet) 20 mg PO DAILY [facility] Last Admin: 10/07/22 08:57 Dose: 20 mg Glucose (Glucose Gel 15 Gm Gel..Gram.) 15 gm PO Q15M PRN; Protocol PRN Reason: per Hypoglycemia Standing Ord. Hydrochlorothiazide (Hydrochlorothiazide 12.5 Mg Tablet) 12.5 mg PO DAILY [facility]; Protocol Last Admin: 10/07/22 08:57 Dose: 12.5 mg Hydroxyzine HCl (Hydroxyzine Hcl 25 Mg Tablet) 25 mg PO Q6H PRN PRN Reason: Anxiety Insulin Human Lispro (Insulin Lispro 100 Unit/Ml 3 Ml Vial) 0 unit SUBCUT QIDACHS [facility]; Protocol Last Admin: 10/07/22 08:58 Dose: Not Given Lisinopril (Lisinopril 10 Mg Tablet) 10 mg PO BEDTIME [facility]; Protocol Last Admin: 10/06/22 21:26 Dose: 10 mg Loperamide HCl (Loperamide Hcl 2 Mg Capsule) 2 mg PO Q4H PRN PRN Reason: Diarrhea Last Admin: 10/05/22 20:02 Dose: 2 mg Lorazepam (Lorazepam 1 Mg Tablet) 1 mg PO Q4H PRN PRN Reason: Ciwa 5-9 Last Admin: 10/06/22 21:27 Dose: 1 mg Lorazepam (Lorazepam 1 Mg Tablet) 2 mg PO Q4H PRN PRN Reason: CIWA 10 or higher Magnesium Hydroxide (Milk Of Magnesia 30 Ml Oral.Susp) 30 ml PO DAILY PRN PRN Reason: Constipation Multivitamins/Vitamin C (Multivitamin Tablet) 1 tab PO DAILY [facility] Last Admin: 10/07/22 09:00 Dose: 1 tab Naproxen (Naproxen 500 Mg Tablet) 500 mg PO Q12H PRN PRN Reason: Pain, Mild (Pain Scale 1-3) Nicotine Polacrilex (Nicotine Polacrilex 2 Mg Gum) 4 mg BUCCAL Q2H PRN PRN Reason: Nicotine Cravings Thiamine HCl (Thiamine Hcl 100 Mg Tablet) 100 mg PO DAILY [facility] Last Admin: 10/07/22 08:57 Dose: 100 mg Trazodone HCl (Trazodone Hcl 50 Mg Tablet) 50 mg PO BEDTIME PRN PRN Reason: Insomnia Last Admin: 10/06/22 21:27 Dose: 50 mg Allergies Allergies Allergy/AdvReac Type Severity Reaction Status Date / Time No Known Allergies Allergy Verified 10/10/20 18:05 Assessment & Plan Assessment & Plan (1) Depression: Status: Acute Code(s): F32.A - Depression, unspecified (2) Alcohol use disorder, severe, dependence: Status: Acute Code(s): F10.20 - Alcohol dependence, uncomplicated Plan 52 yo male reports relapse on alcohol after 3 years of sobriety and misuse of Lexapro with resulting increase in symptoms and SI. Plan: Continue Lexapro Referral for out pt psychotherapy [facility] one tab daily Thiamine 100 mg daily Collateral contact. Hospitalist consult-HTN 10/05 continue meds, added clonidine for prn HTN, but monitor CIWA and alcohol withdrawal- 10/06 continue current meds. pt denies s/s of withdrawal. 10/07/22 continue current plan. TDN submitted. I spent minutes with the patient and/or on the patient floor today, greater than?50% of which was spent counseling/coordinating care. Patient educated on: therapeutic strategies Informed Consent: understands Reason for contiued inpatient stay Substantial Risk for: rapid decompensation
[2022-10-07 16:20] VITALS: BP 133/77; PULSE 94; TEMP 36.1
[2022-10-07 17:24] LABS: Glucose, Whole Blood 150 mg/dL (60-115)
[2022-10-07 21:32] LABS: Glucose, Whole Blood 294 mg/dL (60-115)
[2022-10-07 22:45] VITALS: BP 122/72; PULSE 92; TEMP 36.8
[2022-10-07] MEDS: lisinopriL 10 MG TABLET PO (22:48)
[2022-10-07] MEDS: traZODone HCL 50 MG TABLET PO (22:49)
[2022-10-07] MEDS: Insulin Lispro 100 UNIT/ML 3 ML VIAL SUBCUT (22:50)
[2022-10-08 05:50] VITALS: RESP 18
[2022-10-08 06:00] VITALS: BP 134/89; PULSE 110
[2022-10-08 08:00] VITALS: BP 136/82; PULSE 117; RESP 16; TEMP 36.8; O2SAT 94
[2022-10-08] MEDS: Thiamine HCL 100 MG TABLET PO (08:37)
[2022-10-08] MEDS: hydroCHLOROthiazide 12.5 MG TABLET PO (08:37)
[2022-10-08] MEDS: Multivitamin TABLET 1 TAB PO (08:37)
[2022-10-08] MEDS: Escitalopram Oxalate 20 MG TABLET PO (08:37)
[2022-10-08 09:08] LABS: Glucose, Whole Blood 144 mg/dL (60-115)
--- NOTE | 2022-10-08 11:30 | P.PNPSI_ITS ---
Subjective Subjective Date of Service: 10/08/22 Reason For Visit: depression Interim History: Patient seen and discussed with team. Patient reports his symptoms have improved since being in the hospital. He reports The Lexapro is working . He denies side effects. He says he is struggling with chronic pain. He has been social in the milieu. Attending groups. He denies SI/HI or AVH. Medication Compliance: Yes Side effects from medications: No Attending Groups: Yes Review of Systems Review of Systems Yes all other systems are reviewed and are negative Reports behavioral changes Psychiatric: Reports anxiety, Reports behavioral changes and Reports suicidal ideation (denies) Mental Status Exam Mental Status Exam Narrative: Appearance: MO, casually groomed, good hygiene, in NAD Behavior: cooperative Psychomotor: no agitation or retardation noted Speech: clear, normal rate/rhythm/volume, spontaneous TP: linear TC: no s/s of psychosis, wanting to care for himself now and get back in track with recovery. Mood: better Affect: brighter, congruent SI: none HI: none VH/AH: none Delusions: none Insight/judgment: fair x 2. Memory/cog: alert, oriented x 3. grossly intact. Patient Appearance: Appropriate Patient Orientation: Person, Place, Time and Situation Patient Behavior: Talkative and Good Eye Contact Mood Description: Apprehensive Affect Description: Calm Patient Cognition Impaired: No Ability to Follow Directions: Good Speech Pattern: Spontaneous Speech Memory Description: Intact Diagnostics Vital Signs (24Hr): Vital Signs - 24 hr 10/07/22 22:45 10/08/22 05:50 10/08/22 08:00 Temperature 98.2 F 98.3 F Pulse Rate 92 117 H Respiratory Rate 18 16 Blood Pressure 122/72 136/82 Pulse Oximetry 94 Oxygen Delivery Method Room Air 10/08/22 06:00 10/08/22 14:00 Temperature Pulse Rate 110 H 101 H Respiratory Rate Blood Pressure 134/89 144/94 H Pulse Oximetry Oxygen Delivery Method BMI result Body Mass Index 59.7 Labs Results: 10/02/22 20:10 10/02/22 20:10 Labs: Laboratory Results - last 48 hr 10/06/22 10/07/22 10/07/22 20:28 08:52 13:22 POC Glucose 143 H 143 H 144 H 10/07/22 10/07/22 10/08/22 17:19 21:24 08:25 POC Glucose 150 H 294 H 144 H 10/08/22 10/08/22 11:32 17:39 POC Glucose 155 H 145 H Imaging Radiology Impressions: ITS Impressions Chest X-Ray 10/02/22 20:15 IMPRESSION: Chronic appearing changes similar to the prior study. No acute superimposed process. Medications Medications Current Medications Acetaminophen (Acetaminophen 325 Mg Tablet) 650 mg PO Q6H PRN PRN Reason: Headache/Pain Mild Scale (1-3) Al Hydroxide/Mg Hydroxide (Magnesium Hydrox/Alum Hydrox 30 Ml Oral.Susp) 30 ml PO Q6H PRN PRN Reason: Heartburn/Nausea Clonidine HCl (Clonidine Hcl 0.1 Mg Tablet) 0.1 mg PO Q4H PRN; Protocol PRN Reason: SBP=>160 or DBP=>90 Dextrose (Dextrose 50 % 25 Gm/50 Ml Syringe) 25 gm IVPUSH Q15M PRN; Protocol PRN Reason: per Hypoglycemia Standing Ord. Escitalopram Oxalate (Escitalopram Oxalate 20 Mg Tablet) 20 mg PO DAILY [facility] Last Admin: 10/08/22 08:37 Dose: 20 mg Furosemide (Furosemide 20 Mg Tablet) 20 mg PO DAILY [facility]; Protocol Glucose (Glucose Gel 15 Gm Gel..Gram.) 15 gm PO Q15M PRN; Protocol PRN Reason: per Hypoglycemia Standing Ord. Hydroxyzine HCl (Hydroxyzine Hcl 25 Mg Tablet) 25 mg PO Q6H PRN PRN Reason: Anxiety Insulin Human Lispro (Insulin Lispro 100 Unit/Ml 3 Ml Vial) 0 unit SUBCUT QIDACHS [facility]; Protocol Last Admin: 10/08/22 11:53 Dose: 2 unit Lisinopril (Lisinopril 10 Mg Tablet) 10 mg PO BEDTIME [facility]; Protocol Loperamide HCl (Loperamide Hcl 2 Mg Capsule) 2 mg PO Q4H PRN PRN Reason: Diarrhea Last Admin: 10/05/22 20:02 Dose: 2 mg Magnesium Hydroxide (Milk Of Magnesia 30 Ml Oral.Susp) 30 ml PO DAILY PRN PRN Reason: Constipation Metoprolol Tartrate (Metoprolol Tartrate 12.5 Mg Halftab) 12.5 mg PO BID [facility]; Protocol Multivitamins/Vitamin C (Multivitamin Tablet) 1 tab PO DAILY [facility] Last Admin: 10/08/22 08:37 Dose: 1 tab Naproxen (Naproxen 500 Mg Tablet) 500 mg PO Q12H PRN PRN Reason: Pain, Mild (Pain Scale 1-3) Last Admin: 10/08/22 16:25 Dose: 500 mg Nicotine Polacrilex (Nicotine Polacrilex 2 Mg Gum) 4 mg BUCCAL Q2H PRN PRN Reason: Nicotine Cravings Thiamine HCl (Thiamine Hcl 100 Mg Tablet) 100 mg PO DAILY [facility] Last Admin: 10/08/22 08:37 Dose: 100 mg Trazodone HCl (Trazodone Hcl 50 Mg Tablet) 50 mg PO BEDTIME PRN PRN Reason: Insomnia Last Admin: 10/07/22 22:49 Dose: 50 mg Allergies Allergies Allergy/AdvReac Type Severity Reaction Status Date / Time No Known Allergies Allergy Verified 10/10/20 18:05 Assessment & Plan Assessment & Plan (1) Depression: Status: Acute Code(s): F32.A - Depression, unspecified (2) Alcohol use disorder, severe, dependence: Status: Acute Code(s): F10.20 - Alcohol dependence, uncomplicated Plan 52 yo male reports relapse on alcohol after 3 years of sobriety and misuse of Lexapro with resulting increase in symptoms and SI. Plan: Continue Lexapro Referral for out pt psychotherapy [facility] one tab daily Thiamine 100 mg daily Collateral contact. Hospitalist consult-HTN 10/05 continue meds, added clonidine for prn HTN, but monitor CIWA and alcohol withdrawal- 10/06 continue current meds. pt denies s/s of withdrawal. 10/07/22 continue current plan. TDN submitted. 10/08: Continue current plan. I spent minutes with the patient and/or on the patient floor today, greater than?50% of which was spent counseling/coordinating care. Reason for contiued inpatient stay Substantial Risk for: harm to self and rapid decompensation
[2022-10-08 11:38] LABS: Glucose, Whole Blood 155 mg/dL (60-115)
[2022-10-08] MEDS: Insulin Lispro 100 UNIT/ML 3 ML VIAL SUBCUT ×2 (11:53→21:58)
[2022-10-08 14:00] VITALS: BP 144/94; PULSE 101
--- NOTE | 2022-10-08 14:56 | PC.NURSE ---
nursing supv made aware of needs for ZAC stockings, awaiting delivery
[2022-10-08] MEDS: NaPROXEN 500 MG TABLET PO (16:25)
[2022-10-08 17:43] LABS: Glucose, Whole Blood 145 mg/dL (60-115)
--- NOTE | 2022-10-08 17:51 | PM.EVENT ---
Event Note Date of Service: 10/08/22 Event Note: Patient seen in follow up for hypertension, TERRIE and morbid obesity. Discussed echocardiogram results with patient which showed mildly decreased LV systolic function with EF 45-50% without obvious valvular pathology. Pt has had BLE edema chronically and CXR was negative for any pulmonary edema/effusion. He does have SWAN and positional lightheadedness. Given chronicity of patient's symptoms, will continue working to control patient blood pressure with lisinopril 20mg every evening and change diuretic to lasix 20mg every morning. Pt needs to follow up with cardiology at the [place] upon discharge for further management of chronic HRrEF and sinus tachycardia. We did also discuss weight management strategies which are imperative for his cardiac and overall health.
[2022-10-08] MEDS: lisinopriL 10 MG TABLET PO (21:58)
[2022-10-08 22:07] VITALS: BP 127/80; PULSE 87; RESP 16; TEMP 36.5
[2022-10-08 22:11] LABS: Glucose, Whole Blood 162 mg/dL (60-115)
[2022-10-08] MEDS: Metoprolol Tartrate 12.5 MG HALFTAB PO (22:41)
[2022-10-09 07:45] VITALS: BP 128/80; PULSE 100; RESP 16; TEMP 36.4; O2SAT 94
[2022-10-09 08:02] LABS: Glucose, Whole Blood 144 mg/dL (60-115)
[2022-10-09] MEDS: Escitalopram Oxalate 20 MG TABLET PO (08:37)
[2022-10-09] MEDS: Thiamine HCL 100 MG TABLET PO (08:37)
[2022-10-09] MEDS: Multivitamin TABLET 1 TAB PO (08:38)
[2022-10-09] MEDS: Metoprolol Tartrate 12.5 MG HALFTAB PO ×2 (08:39→21:16)
[2022-10-09] MEDS: Furosemide 20 MG TABLET PO (10:18)
--- NOTE | 2022-10-09 11:20 | P.PNPSI_ITS ---
Subjective Subjective Date of Service: 10/09/22 Reason For Visit: depression Interim History: Patient seen and discussed with team. Patient reports his symptoms have improved since being in the hospital. He reports The Lexapro is working . He denies side effects. He says he is struggling with chronic pain. He has been social in the milieu. Attending groups. He denies SI/HI or AVH. Review of Systems Review of Systems Yes all other systems are reviewed and are negative Reports behavioral changes Psychiatric: Reports anxiety, Reports behavioral changes and Reports suicidal ideation (denies) Mental Status Exam Mental Status Exam Narrative: Appearance: MO, casually groomed, good hygiene, in NAD Behavior: cooperative Psychomotor: no agitation or retardation noted Speech: clear, normal rate/rhythm/volume, spontaneous TP: linear TC: no s/s of psychosis, wanting to care for himself now and get back in track with recovery. Mood: better Affect: brighter, congruent SI: none HI: none VH/AH: none Delusions: none Insight/judgment: fair x 2. Memory/cog: alert, oriented x 3. grossly intact. Patient Appearance: Appropriate Patient Orientation: Person, Place, Time and Situation Patient Behavior: Talkative and Good Eye Contact Mood Description: Apprehensive Affect Description: Calm Patient Cognition Impaired: No Ability to Follow Directions: Good Speech Pattern: Spontaneous Speech Memory Description: Intact Diagnostics Vital Signs (24Hr): Vital Signs - 24 hr 10/08/22 22:07 10/09/22 07:45 Temperature 97.7 F 97.6 F Pulse Rate 87 100 Respiratory Rate 16 16 Blood Pressure 127/80 128/80 Pulse Oximetry 94 Oxygen Delivery Method Room Air BMI result Body Mass Index 59.7 Labs Results: 10/02/22 20:10 10/02/22 20:10 Labs: Laboratory Results - last 48 hr 10/07/22 10/07/22 10/08/22 17:19 21:24 08:25 POC Glucose 150 H 294 H 144 H 10/08/22 10/08/22 10/08/22 11:32 17:39 21:46 POC Glucose 155 H 145 H 162 H 10/09/22 10/09/22 07:58 11:36 POC Glucose 144 H 131 H Imaging Radiology Impressions: ITS Impressions Chest X-Ray 10/02/22 20:15 IMPRESSION: Chronic appearing changes similar to the prior study. No acute superimposed process. Medications Medications Current Medications Acetaminophen (Acetaminophen 325 Mg Tablet) 650 mg PO Q6H PRN PRN Reason: Headache/Pain Mild Scale (1-3) Al Hydroxide/Mg Hydroxide (Magnesium Hydrox/Alum Hydrox 30 Ml Oral.Susp) 30 ml PO Q6H PRN PRN Reason: Heartburn/Nausea Clonidine HCl (Clonidine Hcl 0.1 Mg Tablet) 0.1 mg PO Q4H PRN; Protocol PRN Reason: SBP=>160 or DBP=>90 Dextrose (Dextrose 50 % 25 Gm/50 Ml Syringe) 25 gm IVPUSH Q15M PRN; Protocol PRN Reason: per Hypoglycemia Standing Ord. Escitalopram Oxalate (Escitalopram Oxalate 20 Mg Tablet) 20 mg PO DAILY [facility] Last Admin: 10/09/22 08:37 Dose: 20 mg Furosemide (Furosemide 20 Mg Tablet) 20 mg PO DAILY [facility]; Protocol Last Admin: 10/09/22 10:18 Dose: 20 mg Glucose (Glucose Gel 15 Gm Gel..Gram.) 15 gm PO Q15M PRN; Protocol PRN Reason: per Hypoglycemia Standing Ord. Hydroxyzine HCl (Hydroxyzine Hcl 25 Mg Tablet) 25 mg PO Q6H PRN PRN Reason: Anxiety Insulin Human Lispro (Insulin Lispro 100 Unit/Ml 3 Ml Vial) 0 unit SUBCUT QIDACHS [facility]; Protocol Last Admin: 10/09/22 12:22 Dose: Not Given Lisinopril (Lisinopril 10 Mg Tablet) 10 mg PO BEDTIME [facility]; Protocol Last Admin: 10/08/22 21:58 Dose: 10 mg Loperamide HCl (Loperamide Hcl 2 Mg Capsule) 2 mg PO Q4H PRN PRN Reason: Diarrhea Last Admin: 10/05/22 20:02 Dose: 2 mg Magnesium Hydroxide (Milk Of Magnesia 30 Ml Oral.Susp) 30 ml PO DAILY PRN PRN Reason: Constipation Metoprolol Tartrate (Metoprolol Tartrate 12.5 Mg Halftab) 12.5 mg PO BID [facility]; Protocol Last Admin: 10/09/22 08:39 Dose: 12.5 mg Multivitamins/Vitamin C (Multivitamin Tablet) 1 tab PO DAILY [facility] Last Admin: 10/09/22 08:38 Dose: 1 tab Naproxen (Naproxen 500 Mg Tablet) 500 mg PO Q12H PRN PRN Reason: Pain, Mild (Pain Scale 1-3) Last Admin: 10/08/22 16:25 Dose: 500 mg Nicotine Polacrilex (Nicotine Polacrilex 2 Mg Gum) 4 mg BUCCAL Q2H PRN PRN Reason: Nicotine Cravings Thiamine HCl (Thiamine Hcl 100 Mg Tablet) 100 mg PO DAILY TOBY Last Admin: 10/09/22 08:37 Dose: 100 mg Trazodone HCl (Trazodone Hcl 50 Mg Tablet) 50 mg PO BEDTIME PRN PRN Reason: Insomnia Last Admin: 10/07/22 22:49 Dose: 50 mg Allergies Allergies Allergy/AdvReac Type Severity Reaction Status Date / Time No Known Allergies Allergy Verified 10/10/20 18:05 Assessment & Plan Assessment & Plan (1) Depression: Status: Acute Code(s): F32.A - Depression, unspecified (2) Alcohol use disorder, severe, dependence: Status: Acute Code(s): F10.20 - Alcohol dependence, uncomplicated Plan 52 yo male reports relapse on alcohol after 3 years of sobriety and misuse of Lexapro with resulting increase in symptoms and SI. Plan: Continue Lexapro Referral for out pt psychotherapy [facility] one tab daily Thiamine 100 mg daily Collateral contact. Hospitalist consult-HTN 10/05 continue meds, added clonidine for prn HTN, but monitor CIWA and alcohol withdrawal- 10/06 continue current meds. pt denies s/s of withdrawal. 10/07/22 continue current plan. TDN submitted. 10/08: Continue current plan. 10/09: Continue current plan. I spent minutes with the patient and/or on the patient floor today, greater than?50% of which was spent counseling/coordinating care. Reason for contiued inpatient stay Substantial Risk for: harm to self and rapid decompensation
[2022-10-09 11:41] LABS: Glucose, Whole Blood 131 mg/dL (60-115)
[2022-10-09 17:22] LABS: Glucose, Whole Blood 122 mg/dL (60-115)
[2022-10-09 20:55] VITALS: BP 152/87; PULSE 92; RESP 16; TEMP 36.1
[2022-10-09] MEDS: lisinopriL 10 MG TABLET PO (21:16)
[2022-10-09] MEDS: Insulin Lispro 100 UNIT/ML 3 ML VIAL SUBCUT (21:16)
[2022-10-09 21:27] LABS: Glucose, Whole Blood 164 mg/dL (60-115)
[2022-10-10 06:00] VITALS: BP 124/81; PULSE 88; RESP 18; TEMP 36.4; O2SAT 92
[2022-10-10 08:43] LABS: Glucose, Whole Blood 127 mg/dL (60-115)
[2022-10-10] MEDS: Metoprolol Tartrate 12.5 MG HALFTAB PO (08:45)
[2022-10-10] MEDS: Multivitamin TABLET 1 TAB PO (08:45)
[2022-10-10] MEDS: Escitalopram Oxalate 20 MG TABLET PO (08:45)
[2022-10-10] MEDS: Furosemide 20 MG TABLET PO (08:45)
[2022-10-10] MEDS: Thiamine HCL 100 MG TABLET PO (08:45)
[2022-10-10 11:36] LABS: Glucose, Whole Blood 176 mg/dL (60-115)
[2022-10-10] MEDS: Insulin Lispro 100 UNIT/ML 3 ML VIAL SUBCUT (11:42)
--- NOTE | 2022-10-11 16:46 | PM.PSYDC ---
DS: Providers Provider Date of Service: 10/10/22 Date of admission: 10/03/22 16:48 Date of discharge: 10/10/22 Primary care physician: Unknown Physician Admitting clinician: Vanesa Mitchell Attending physician on admission: Jori Rodriguez Consults: 10/04/22 12:20 Consult to Hospitalist Routine Consulting Provider: Hospitalist Reason For Exam: HTN, BLE Edema 10/10/22 10:34 Addiction Medicine Routine Consulting Provider: Addiction Covering Reason for consultation: discharging-wanting a recovery contact Has provider been notified: No Attending physician on discharge: Jori Rodriguez Discharging clinician: Vanesa Mitchell DS: Diagnosis Discharge Diagnosis (1) Depression: Status: Acute (2) Alcohol use disorder, severe, dependence: Status: Acute DS: Medications Discharge Medications Home Medications: Previous Rx's Medication Instructions Recorded clonidine HCl 0.1 mg tablet 0.1 mg PO Q4H PRN SBP=>160 or 10/10/22 DBP=>90 #30 tabs escitalopram oxalate 20 mg PO DAILY #30 tabs 10/10/22 furosemide 20 mg tablet 20 mg PO DAILY #30 tabs 10/10/22 hydroxyzine HCl 25 mg tablet 25 mg PO Q6H PRN Anxiety #30 tabs 10/10/22 lisinopril 10 mg tablet 10 mg PO BEDTIME #30 tabs 10/10/22 metoprolol tartrate 25 mg tablet 12.5 mg PO BID #30 tabs 10/10/22 multivitamin (Daily-Loren tablet) 1 tab PO DAILY #30 tabs 10/10/22 naproxen 500 mg tablet 500 mg PO Q12H PRN Pain, Mild 10/10/22 (Pain Scale 1-3) #30 tabs thiamine mononitrate (vit B1) 100 100 mg PO DAILY #30 tabs 10/10/22 mg tablet trazodone 50 mg tablet 50 mg PO BEDTIME PRN Insomnia #30 10/10/22 tabs Mental Status Exam Mental Status Exam Patient Appearance: Appropriate Patient Orientation: Person, Place, Time and Situation Patient Behavior: Talkative and Good Eye Contact Mood Description: Apprehensive Affect Description: Flat Patient Cognition Impaired: No Ability to Follow Directions: Good Speech Pattern: Spontaneous Speech Memory Description: Intact Hallucinations: None Delusions: Not Present Thought Process: Rumination Thought Content: positive for Perseveration Judgement: Good Data Data Completed and Pending Completed studies during hospitalization [Text1]: 10/04/22 10/04/22 10/05/22 17:26 23:12 07:55 POC Glucose 171 H 140 H 150 H 10/05/22 10/05/22 10/05/22 11:43 17:34 20:19 POC Glucose 96 110 135 H 10/06/22 10/06/22 10/06/22 08:11 12:54 17:15 POC Glucose 116 H 107 125 H 10/06/22 10/07/22 10/07/22 20:28 08:52 13:22 POC Glucose 143 H 143 H 144 H 10/07/22 10/07/22 10/08/22 17:19 21:24 08:25 POC Glucose 150 H 294 H 144 H 10/08/22 10/08/22 10/08/22 11:32 17:39 21:46 POC Glucose 155 H 145 H 162 H 10/09/22 10/09/22 10/09/22 07:58 11:36 17:19 POC Glucose 144 H 131 H 122 H 10/09/22 10/10/22 10/10/22 21:07 08:35 11:33 POC Glucose 164 H 127 H 176 H Imaging Diagnostic Imaging Impressions Chest X-Ray 10/02/22 20:15 IMPRESSION: Chronic appearing changes similar to the prior study. No acute superimposed process. DS: Summary Hospital Course Hospital Course: Admission to adult psychiatry for exacerbation of recurrent major depression and alcohol use disorder. Lexapro was titrated. Education was provided on appropriate use of Lexapro as prior to admission pt had not been taking it regularly, had been taking it with alcohol, had overtaken it to make up for missed dosages and found it not be be effective. HTN was treated during pt's admission. Time spent discussing smoking cessation with patient: 3 to 10 minutes Status at Discharge Functional status at discharge: independent ambulation Overall status at discharge: patient is back to baseline Time Spent with Patient Time attestation: Total time spent providing and/or coordinating discharge services: Discharge Plan Discharge Anticipated Discharge Date/Time: 10/10/22 13:30 Patient Disposition: Home, Self-Care Discharge Diagnosis: Recurrent Major Depression, Severe Alcohol Use Disorder, Severe Referrals: [facility] [Other] - 1 Week (OFFICE NOTIFIED OF D/C APPT.LEFT MESSAGE FOR A CALL BACK) Physician,Unknown J [Primary Care Provider] - 1 Week Discharge Medications: New multivitamin [Daily-Loren] Tablet 1 tab PO DAILY Qty: 30 0RF clonidine HCl 0.1 mg Tablet 0.1 mg PO Q4H PRN (Reason: SBP=>160 or DBP=>90) Qty: 30 0RF Protocol: Hold for SBP< HOLD for SBP < : 90 trazodone 50 mg Tablet 50 mg PO BEDTIME PRN (Reason: Insomnia) Qty: 30 0RF lisinopril 10 mg Tablet 10 mg PO BEDTIME Qty: 30 0RF Protocol: Hold for SBP< HOLD for SBP < : 90 hydroxyzine HCl 25 mg Tablet 25 mg PO Q6H PRN (Reason: Anxiety) Qty: 30 0RF furosemide 20 mg Tablet 20 mg PO DAILY Qty: 30 0RF Protocol: Hold for SBP< HOLD for SBP < : 90 naproxen 500 mg Tablet 500 mg PO Q12H PRN (Reason: Pain, Mild (Pain Scale 1-3)) Qty: 30 0RF thiamine mononitrate (vit B1) 100 mg Tablet 100 mg PO DAILY Qty: 30 0RF metoprolol tartrate 25 mg tablet 12.5 mg PO BID Qty: 30 0RF Changed escitalopram oxalate 20 mg 20 mg PO DAILY Qty: 30 0RF Discharge Orders: Discharge Order (Routine); Ordered 10/10/22 Ordered By: Vanesa Mitchell Diet: Advance to usual diet Activity on Discharge: As tolerated Stand Alone Forms: Patient Portal Discharge page, Community Support Care Plan Goals: Maintain mood and safe behaviors Take medications as directed Practice coping skills Continue with out patient providers and reach out as needed Practice recovery skills Health Concerns: Stable mood and behaviors Recovery Plan of Treatment: Follow up with out patient providers Take medications as directed Practice recovery skills Assessment: Pt interviewed prior to discharge and found to be fully oriented and without any SI or HI. Pt has insight and demonstrates good judgment in terms of wanting to pursue treatment. Pt is not in imminent risk of harm to self or others and has a safety plan that includes presenting to the closest ER or calling 911 if feeling unsafe. Pt has been observed closely by nursing and unit staff throughout admission. Pt has not engaged in any behaviors that suggest dangerousness to self or others and has demonstrated appropriate behaviors and impulse control. Patient Instructions: Chest Pain (ED), Depression (ED) Discharge Date/Time: 10/10/22 13:50
== END 2022-10-10 13:50 | disposition home or self-care (01) | DRG 885 ==
LOC: HO.ED 10-03 15:49 → HO.PM5 10-03 17:15
PROVIDERS: Physician Assistant; Admitting Provider Psychiatry & Neurology Psychiatry; Emergency Provider Internal Medicine; Visit Provider Clinical Nurse Specialist Psychiatric/Mental Health, Adult
DX: F33.2 Major depressive disorder, recurrent severe without psychotic features (principal); Z68.43 Body mass index [BMI] 50.0-59.9, adult; I50.22 Chronic systolic (congestive) heart failure; F41.9 Anxiety disorder, unspecified; E66.01 Morbid (severe) obesity due to excess calories; I11.0 Hypertensive heart disease with heart failure; E11.9 Type 2 diabetes mellitus without complications; I27.29 Other secondary pulmonary hypertension; G47.33 Obstructive sleep apnea (adult) (pediatric); F43.10 Post-traumatic stress disorder, unspecified; Z20.822 Contact with and (suspected) exposure to COVID-19; Z62.810 Personal history of physical and sexual abuse in childhood; Z87.820 Personal history of traumatic brain injury; Z79.899 Other long term (current) drug therapy
CPT/HCPCS: 0241U; 36415; 71045; 80048; 80076; 80307; 82077; 82947; 83036; 83690; 83880; 84484; 85025; 93005; 93306; 94660; 99285; Q9957

== ENCOUNTER 2022-12-24 21:21 | Emergency (ER) | payer OTHER, MEDICARE, MEDICAID, SELFPAY ==
--- NOTE | 2022-12-24 | ECG_ITS ---
Test Reason : SOB Blood Pressure : / mmHG Vent. Rate : 099 BPM Atrial Rate : 099 BPM P-R Int : 188 ms QRS Dur : 096 ms QT Int : 372 ms P-R-T Axes : 050 -51 029 degrees QTc Int : 477 ms Sinus rhythm with Premature atrial complexes Left axis deviation Low voltage QRS Incomplete right bundle branch block Cannot rule out Anterior infarct (cited on or before 24-DEC-2022) Abnormal ECG When compared with ECG of 02-OCT-2022 19:46, Premature ventricular complexes are no longer Present Premature atrial complexes are now Present Referred By: Maxime Lucas Electronically Signed By:VERNA OTRRES MD
--- NOTE | ~2022-12-24 | XR_ITS ---
EXAMINATION: PORTABLE CHEST 1 VIEW CLINICAL INFORMATION: sob . COMPARISON: 10/02/2022. TECHNIQUE: Portable frontal view of the chest was obtained. FINDINGS: The lungs are hypoexpanded with bibasilar markings more likely reflecting a component of atelectasis. Tiny left effusion cannot be excluded. No overt edema or pneumothorax. Cardiac and mediastinal silhouettes within normal limits for size. Degenerative changes in the spine and shoulders with no acute bony abnormality XR/XR chest 1V IMPRESSION: Hypoexpanded with basilar markings more likely reflecting a component of atelectasis.
[2022-12-24 21:25] VITALS: BP 128/90; PULSE 110; O2SAT 85
[2022-12-24 21:28] VITALS: BP 147/85; PULSE 108; RESP 20; TEMP 36.7; O2SAT 94; BMI 61.4
[2022-12-24 21:42] VITALS: BP 124/53; PULSE 111; RESP 18; TEMP 36.8; O2SAT 94
--- NOTE | 2022-12-24 22:07 | ED_ITS ---
HPI - SOB/Dyspnea General Chief Complaint: Dyspnea Stated Complaint: Difficulty Breathing,Depressed Time Seen by Provider: 12/24/22 21:44 Source: patient and EMS Mode of arrival: EMS Limitations: no limitations History of Present Illness HPI Narrative: Patient morbidly obese weighing 200 kg history of sleep apnea and depression and alcohol abuse was in rehab in 2019 since then been sober occasionally drinks but for last 2 days drinking heavy as he is feeling more depressed asking for detox/evaluation with therapist. Patient does wear CPAP in the nighttime for sleep apnea also complaining of shortness of breath when he arrived saturating 80% at room air improved to 96% on 4 L patient denies any chest pain no fever or cough Related Data Home Medications Medication Instructions Recorded Confirmed clonidine HCl 0.1 mg tablet See Rx Instructions .Route .COMPLEX 12/25/22 12/25/22 escitalopram oxalate 20 mg tablet 20 mg PO DAILY 12/25/22 12/25/22 furosemide 20 mg tablet 20 mg PO DAILY 12/25/22 12/25/22 hydroxyzine HCl 25 mg tablet See Rx Instructions .Route 12/25/22 12/25/22 .COMPLEX PRN Anxiety lisinopril 10 mg tablet 10 mg PO DAILY 12/25/22 12/25/22 Allergies Allergy/AdvReac Type Severity Reaction Status Date / Time No Known Allergies Allergy Verified 12/24/22 21:28 Review of Systems Review of Systems: Yes all other systems are reviewed and are negative [facility] Past Medical History Medical History Alcohol use disorder, severe, dependence Anxiety Arthritis Depression Diabetes mellitus, type 2 Herniated disc Hypertension Obesity PTSD (post-traumatic stress disorder) Sleep apnea Systolic heart failure Family History Family History Mother Diabetes Social History Social History Household Members: None Housing: Apartment Do you presently have visiting nurse or other home services: No Alcohol intake: current Alcohol intake frequency: a few times a week Alcohol type: beer and wine Patient Tobacco Use Status: Never used Tobacco Smoked in Last 30 Days: No Use of substances other than those prescribed or required for medical reasons: No Advance Directives: No Advance Directives Information Provided: No service: Yes ([employer] three years) Sexual orientation: Straight/Heterosexual Physical Exam Vital Signs: Vital Signs: Last Vital Signs Temp 97.6 F 12/24/22 23:57 Pulse 113 H 12/24/22 23:57 Resp 22 H 12/24/22 23:57 BP 127/55 L 12/24/22 23:57 Pulse Ox 94 12/24/22 23:57 O2 Del Method 12/24/22 23:57 O2 Flow Rate 5 12/24/22 23:57 Oxygen Flow Rate 4 12/24/22 21:28 BMI result Body Mass Index 61.4 Appearance: Alert. Oriented X3. No acute distress. Obese Eyes: PERRLA, No Nystagmus ENT: Pharynx normal. Oral Mucosa moist Neck: Normal inspection. Neck supple. CVS: Normal heart rate and rhythm. Pulses normal. Respiratory: No respiratory distress. Equal air entry bilateral, no whe ezing/rales/rhonchi Abdomen: Soft and nontender. Bowel sounds are present, no mass palpable, no CVA tenderness Skin: Skin warm and dry. Normal skin color. Normal skin turgor. Extremities: No lower extremity edema. No calf tenderness Neuro: Oriented X 3. No motor deficit. No sensory deficit.No cerebellar signs , cranial nerves II-XII intact psych: Depressed no current suicidal ideation no hallucination/ delusion Medical Decision Making Medical Decision Making [facility] Narrative: Patient with major depression with suicidal feeling with alcohol abuse with history of same in the past and been to detox. Patient Has a chronic hypoxemia secondary to sleep apnea which improved after CPAP patient is medically cleared to be seen by care team for detox/inpatient psych placement Differential Diagnosis Sleep apnea/pneumonia/CHF/alcoholic cardiomyopathy/depression/SI Lab Data [facility] Lab Attestation statement: I reviewed the patient's lab results. 12/24/22 22:14 12/24/22 22:14 Labs: Lab Results 12/24/22 12/24/22 12/24/22 Range/Units 22:14 22:14 22:14 WBC 6.5 (4.8-10.8) X10*3/uL RBC 4.87 (4.60-5.80) X10*6/uL Hgb 14.5 (14.0-18.0) g/dl Hct 44.2 (42.0-52.0) % MCV 90.8 (80.0-98.0) fL MCH 29.8 (27.0-33.0) pg MCHC 32.8 (31.0-36.0) g/dl RDW 13.2 (11.0-16.0) % Plt Count 222 (160-400) X10*3/uL MPV 10.7 (9.4-12.4) fL Immature Gran % (Auto) 0.3 (0.0-0.4) % Neut % (Auto) 53.2 (45-73) % Lymph % (Auto) 30.5 (20-40) % [place] % (Auto) 12.0 H (2-11) % Eos % (Auto) 2.8 (0-4) % Baso % (Auto) 1.2 (0-2) % Lymph # (Auto) 2.0 (1.2-4.9) X10*3/uL [place] # (Auto) 0.8 (0.1-1.2) X10*3/uL Eos # (Auto) 0.2 (0.0-0.4) X10*3/uL Baso # (Auto) 0.1 (0.0-0.2) X10*3/uL Abs Immat Gran (auto) 0.02 (0.00-0.03) X10*3/uL Absolute Neuts (auto) 3.5 (2.0-8.3) x10*3/uL Absolute Nucleated RBC 0.000 (0.0-0.012) X10*3/uL Nucleated RBC % (auto) 0.0 (0.0-0.2) /100WBC VBG pH (7.32-7.43) VBG pCO2 mmHg VBG pO2 mmHg VBG HCO3 (22-26) mmol/L VBG O2 Saturation % VBG Base Excess mmol/L Sodium 141 (135-145) mmol/L Potassium 4.5 (3.3-5.1) mmol/L Chloride 101 (96-108) mmol/L Carbon Dioxide 29 (22-29) mmol/L Anion Gap 16 (12-20) BUN 10 (9-16) mg/dL Creatinine 0.83 (0.5-1.4) mg/dL Estim Creat Clear Calc 188.4 Estimated GFR > 60 Random Glucose 185 H (60-115) mg/dL Calcium 8.4 (8.4-10.2) mg/dL Total Bilirubin 0.3 (0.0-1.0) mg/dL AST 30 (5-37) U/L ALT 28 (0-40) U/L Alkaline Phosphatase 86 (39-117) U/L Troponin I High Sens (<3.5-35.0) ng/L B-Natriuretic Peptide 42 (<100) pg/mL Total Protein 7.5 (6.5-8.0) g/dL Albumin 4.0 (3.5-5.0) g/dL Influenza Type A (PCR) (Negative) Influenza Type B (PCR) (Negative) RSV RNA Qual (PCR) (Negative) SARS-CoV-2 RNA (RT-PCR) (Negative) 12/24/22 12/24/22 12/24/22 Range/Units 22:14 22:14 22:40 WBC (4.8-10.8) X10*3/uL RBC (4.60-5.80) X10*6/uL Hgb (14.0-18.0) g/dl Hct (42.0-52.0) % MCV (80.0-98.0) fL MCH (27.0-33.0) pg MCHC (31.0-36.0) g/dl RDW (11.0-16.0) % Plt Count (160-400) X10*3/uL MPV (9.4-12.4) fL Immature Gran % (Auto) (0.0-0.4) % Neut % (Auto) (45-73) % Lymph % (Auto) (20-40) % [place] % (Auto) (2-11) % Eos % (Auto) (0-4) % Baso % (Auto) (0-2) % Lymph # (Auto) (1.2-4.9) X10*3/uL [place] # (Auto) (0.1-1.2) X10*3/uL Eos # (Auto) (0.0-0.4) X10*3/uL Baso # (Auto) (0.0-0.2) X10*3/uL Abs Immat Gran (auto) (0.00-0.03) X10*3/uL Absolute Neuts (auto) (2.0-8.3) x10*3/uL Absolute Nucleated RBC (0.0-0.012) X10*3/uL Nucleated RBC % (auto) (0.0-0.2) /100WBC VBG pH 7.42 (7.32-7.43) VBG pCO2 54 mmHg VBG pO2 103 mmHg VBG HCO3 35 H (22-26) mmol/L VBG O2 Saturation 98.0 % VBG Base Excess 9.5 mmol/L Sodium (135-145) mmol/L Potassium (3.3-5.1) mmol/L Chloride (96-108) mmol/L Carbon Dioxide (22-29) mmol/L Anion Gap (12-20) BUN (9-16) mg/dL Creatinine (0.5-1.4) mg/dL Estim Creat Clear Calc Estimated GFR Random Glucose (60-115) mg/dL Calcium (8.4-10.2) mg/dL Total Bilirubin (0.0-1.0) mg/dL AST (5-37) U/L ALT (0-40) U/L Alkaline Phosphatase (39-117) U/L Troponin I High Sens 12.9 (<3.5-35.0) ng/L B-Natriuretic Peptide (<100) pg/mL Total Protein (6.5-8.0) g/dL Albumin (3.5-5.0) g/dL Influenza Type A (PCR) NEGATIVE (Negative) Influenza Type B (PCR) NEGATIVE (Negative) RSV RNA Qual (PCR) NEGATIVE (Negative) SARS-CoV-2 RNA (RT-PCR) NEGATIVE (Negative) Independent Interpretation I performed an independent interpretation of an: EKG Interpretation: Sinus rhythm heart rate 99 beats per minute with PACs left axis deviation incomplete right bundle-branch block no acute ST T wave changes no acute ischemia Discharge Plan Discharge Clinical Impression: Sleep apnea syndrome, Depression with suicidal ideation, Alcohol use disorder, severe, dependence Patient Disposition: Still a Patient Prescriptions: No Action escitalopram oxalate 20 mg Tablet 20 mg PO DAILY lisinopril 10 mg Tablet 10 mg PO DAILY hydroxyzine HCl 25 mg Tablet See Rx Instructions .ROUTE .COMPLEX PRN (Reason: Anxiety) Rx Instructions: 25 mg every 6 hours as needed furosemide 20 mg Tablet 20 mg PO DAILY clonidine HCl 0.1 mg Tablet See Rx Instructions .ROUTE .COMPLEX Rx Instructions: 0.1 mg every 4 hours as needed
[2022-12-24 22:18] LABS: MANUAL DIFF FLAG NO
[2022-12-24 22:21] LABS: Basophils Absolute Auto 0.1 X10*3/uL (0.0-0.2); Basophils Percent Auto 1.2 % (0-2); Eosinophils Absolute Auto 0.2 X10*3/uL (0.0-0.4); Eosinophils Percent Auto 2.8 % (0-4); Hematocrit 44.2 % (42.0-52.0); Hemoglobin 14.5 g/dl (14.0-18.0); Imm Gran Abs Auto 0.02 X10*3/uL (0.00-0.03); Imm Gran Pct Auto 0.3 % (0.0-0.4); Lymphocytes Percent Auto 30.5 % (20-40); Mean Corpuscular HGB Conc 32.8 g/dl (31.0-36.0); Mean Corpuscular Hemoglobin 29.8 pg (27.0-33.0); Mean Corpuscular Volume 90.8 fL (80.0-98.0); Mean Platelet Volume 10.7 fL (9.4-12.4); Monocytes Absolute Auto 0.8 X10*3/uL (0.1-1.2); Neutrophils Absolute Auto 3.5 x10*3/uL (2.0-8.3); Neutrophils Percent Auto 53.2 % (45-73); Platelet Count 222 X10*3/uL (160-400); Red Blood Count 4.87 X10*6/uL (4.60-5.80); Red Cell Distribution Width 13.2 % (11.0-16.0); White Blood Count 6.5 X10*3/uL (4.8-10.8)
[2022-12-24 22:41] LABS: B Type Natriuretic Peptide 42 pg/mL (<100); Troponin-I High Sensitivity 12.9 ng/L (<3.5-35.0)
[2022-12-24 22:42] LABS: Alanine Aminotransferase 28 U/L (0-40); Alkaline Phosphatase 86 U/L (39-117); Anion Gap 16 (12-20); Aspartate Amino Transferase 30 U/L (5-37); Bilirubin Total 0.3 mg/dL (0.0-1.0); Blood Urea Nitrogen 10 mg/dL (9-16); Calcium 8.4 mg/dL (8.4-10.2); Carbon Dioxide 29 mmol/L (22-29); Chloride 101 mmol/L (96-108); Creatinine Clr Calc Pharmacy 188.4; Estimated Glomerular Filt Rate > 60; Glucose Random 185 mg/dL (60-115); Potassium 4.5 mmol/L (3.3-5.1); Sodium 141 mmol/L (135-145); Total Protein 7.5 g/dL (6.5-8.0)
[2022-12-24 22:47] LABS: VBG Base Excess 9.5 mmol/L; VBG HCO3 35 mmol/L (22-26); VBG pCO2 54 mmHg; VBG pH 7.42 (7.32-7.43); VBG pO2 103 mmHg
--- NOTE | 2022-12-24 22:54 | PC.NURSE ---
Patient is alert and oriented to person and time. Patient reports pain in his abdomen at tolerable level. P 107, RR 15, O2 Sat 96% on supplemental O2 at 4 LPM NC. Patient suffers from SA. Patient uses CPAP at night at baseline. Patient VBG drawn per MD orders. Patient admits drinking 1 bottle of wine prior to arrival to ED. Patient reports feeling depressed, admits SI thought with no plan. Patient has 1:1 sitter. Patient has media monitor.
[2022-12-24 22:55] LABS: Venous Blood Gas Refer to POC result
[2022-12-24 23:03] LABS: Influenza A PCR NEGATIVE (Negative); Influenza B PCR NEGATIVE (Negative); Resp Syncy Virus RNA Qual PCR NEGATIVE (Negative); SARS COV2 PCR INHOUSE NEGATIVE (Negative)
[2022-12-24 23:57] VITALS: BP 127/55; PULSE 113; RESP 22; TEMP 36.4; O2SAT 94
[2022-12-25] VITALS (8 sets, daily range): BP systolic 141–164; BP diastolic 78–98; PULSE 91–109; RESP 14–22; TEMP 36.6–36.9; O2SAT 92–94
--- NOTE | 2022-12-25 01:52 | PC.NURSE ---
Patient is alert and oriented x3. VSS. Patient removed supplemental O2. Patient is able to talk in full sentences w/o dyspnea. O2 Sat 92-94% RA. Patient is siting in the chair, 1:[address] Patient continues to admit having SI w/o plan. RT assessed patient. Patient uses CPAP at night for sleep apnea. Patient to notify this RN when he is ready to go back in bed to get CPAP tx. Medication reconciliation completed. Dr. Pro notified that patient requesting Lexapro 20 mg
[2022-12-25 02:01] LABS: Ethanol 171 mg/dL
[2022-12-25] MEDS: hydrOXYzine HCL 25 MG TABLET PO (02:47)
--- NOTE | 2022-12-25 02:47 | PC.NURSE ---
Patient medicated with Hydroxyzine 25 mg PO for mild anxiety.
--- NOTE | 2022-12-25 05:33 | PC.NURSE ---
Patient is in bed resting with his eyes closed. RR 18. O2 Sat 94% RA. Patient declined supplemental oxygen or CPAP. 1:1 observation continues, sitter at bedside.
--- NOTE | 2022-12-25 05:53 | PC.RT ---
Pt refused CPAP for NOC support overnight. pt states he does use it at home but is not currently tired. resmed available when needed and was told to contact respiratory when he felt tired and wanted to use it. RN and aware
[2022-12-25] MEDS: lisinopriL 10 MG TABLET PO (08:49)
[2022-12-25] MEDS: Furosemide 20 MG TABLET PO (08:49)
[2022-12-25] MEDS: Escitalopram Oxalate 20 MG TABLET PO (08:49)
--- NOTE | 2022-12-25 09:03 | PC.NURSE ---
Pt is alert/oriented. Reports persistent SOB and chest tightness. No visible diff breathing, speaking full sentences. NSR on monitor Pt also does report feeling down after not being on prescribed antidepressants, denies other life stressors to this RN. Denies SI at this time. Pt observer with pt for safety. Meds given as charted. Awaits CARE team evaluation and dispo
--- NOTE | 2022-12-25 19:11 | PC.NURSE ---
pt watching tv while sitting in chair, no apparent distress; 1:1 sitter at bedside; assumed care of this pt at this time
--- NOTE | 2022-12-25 23:38 | PC.NURSE ---
pt changed over to hospital bed
[2022-12-26 04:42] VITALS: BP 136/84; PULSE 99; RESP 18; TEMP 36.8; O2SAT 92
[2022-12-26] MEDS: oxyCODONE HCl Immed Release 5 MG TABLET PO (04:55)
[2022-12-26] MEDS: lisinopriL 10 MG TABLET PO (07:26)
[2022-12-26] MEDS: Furosemide 20 MG TABLET PO (07:26)
[2022-12-26] MEDS: Escitalopram Oxalate 20 MG TABLET PO (07:28)
--- NOTE | 2022-12-26 07:32 | PC.NURSE ---
care team at bedside. awaiting plan of care. pt reports feeling much better this am.
[2022-12-26 07:57] VITALS: BP 149/97; PULSE 105; RESP 20; TEMP 36.6; O2SAT 93
== END 2022-12-26 10:41 | disposition home or self-care (01) ==
PROVIDERS: Internal Medicine; Emergency Provider Emergency Medicine
DX: F32.A Depression, unspecified (principal); R45.851 Suicidal ideations; F10.20 Alcohol dependence, uncomplicated; Y90.6 Blood alcohol level of 120-199 mg/100 ml; G47.33 Obstructive sleep apnea (adult) (pediatric); G47.36 Sleep related hypoventilation in conditions classified elsewhere; R06.02 Shortness of breath; E66.01 Morbid (severe) obesity due to excess calories; Z68.44 Body mass index [BMI] 60.0-69.9, adult; Z20.822 Contact with and (suspected) exposure to COVID-19; Z20.828 Contact with and (suspected) exposure to other viral communicable diseases; I10 Essential (primary) hypertension; E11.9 Type 2 diabetes mellitus without complications; F43.10 Post-traumatic stress disorder, unspecified; F41.9 Anxiety disorder, unspecified
CPT/HCPCS: 0241U; 36415; 71045; 80053; 82077; 82803; 83880; 84484; 85025; 93005; 99284; 99285; S9485

== ENCOUNTER 2023-02-14 11:50 | Emergency (ER) | payer OTHER, MEDICARE, MEDICAID, SELFPAY ==
[2023-02-14 11:58] VITALS: BP 125/83; BP 129/74; PULSE 84; PULSE 99; RESP 18; TEMP 37.2; O2SAT 93; O2SAT 94; BMI 26.4
--- NOTE | 2023-02-14 13:09 | ED_ITS ---
HPI - General Adult General Chief complaint: General Medical Stated complaint: Abd Pain Time Seen by Provider: 02/14/23 13:08 Source: patient Mode of arrival: ambulatory Limitations: no limitations History of Present Illness HPI narrative: 52-year-old male who presents emergency department for evaluation of vomiting blood. The patient states that last week he was dry heaving and had 7-8 episodes of vomiting per day. He states that he was hospitalized at [facility] for 2 days but then had the wound since they were not letting him uses CPAP, giving him is Lexapro and they were giving him morphine and he did not like the feeling while he was taking this drug. He states that initially he was feeling fine after leaving [facility] but then 3 days later he ate Faroese food which she states upset his stomach. He states that he has been having a burning sensation and he points to his epigastric area. He also states he has had 6 watery painful stools per day over the past 2-3 days. He did not notice any blood in his bowel movements. He states that he was taking 6 naproxen per day secondary to the painful bowel movements. He was on the toilet, moving his bowels when he developed nausea and vomited 2-3 times. He states that he bright red blood, approximately 2 cups. He states that he does drink 1-2 glasses of wine daily with dinner. He denied fever but states that he is having chills today. He states he has had an occasional cough. He is feeling short of breath. Related Data Home Medications Medication Instructions Recorded Confirmed clonidine HCl 0.1 mg tablet See Rx Instructions .Route .COMPLEX 12/25/22 12/25/22 escitalopram oxalate 20 mg tablet 20 mg PO DAILY 12/25/22 12/25/22 furosemide 20 mg tablet 20 mg PO DAILY 12/25/22 12/25/22 hydroxyzine HCl 25 mg tablet See Rx Instructions .Route 12/25/22 12/25/22 .COMPLEX PRN Anxiety lisinopril 10 mg tablet 10 mg PO DAILY 12/25/22 12/25/22 Previous Rx's Medication Instructions Recorded aluminum hydrox-magnesium carb 254 10 ml PO QID dyspepsia #355 mL 02/14/23 mg-237.5 mg/5 mL oral suspension (Gaviscon Extra Strength) omeprazole 20 mg capsule,delayed 20 mg PO DAILY 30 days #30 caps 02/14/23 release ondansetron 4 mg disintegrating 4 mg PO Q6-8H PRN nausea and 02/14/23 tablet vomiting #14 tabs Allergies Allergy/AdvReac Type Severity Reaction Status Date / Time No Known Allergies Allergy Verified 12/24/22 21:28 Review of Systems Review of Systems: Yes all other systems are reviewed and are negative [facility] Past Medical History [facility] Narrative: Social history: The patient denies tobacco use. He drinks 1-2 glasses of wine per day with dinner. He denies drug use. Medical History Alcohol use disorder, severe, dependence Anxiety Arthritis Depression Diabetes mellitus, type 2 Herniated disc Hypertension Obesity PTSD (post-traumatic stress disorder) Sleep apnea Systolic heart failure Family History Family History Mother Diabetes Social History Social History Household Members: None Housing: Apartment Do you presently have visiting nurse or other home services: No Alcohol intake: current Alcohol intake frequency: 0-2 drinks per day Alcohol type: wine Patient Tobacco Use Status: Never used Tobacco Advance Directives: No Advance Directives Information Provided: No service: Yes ([employer] three years) Sexual orientation: Straight/Heterosexual Physical Exam ED Vital Signs: Vital Signs - 24 hr 02/14/23 11:58 Temperature 99.0 F Pulse Rate 99 Respiratory Rate 18 Blood Pressure 129/74 Pulse Oximetry 94 Oxygen Delivery Method Nasal Cannula BMI result Body Mass Index 26.4 Const Other: Awake, alert, male patient, pleasant, cooperative, answers questions ap propriately. Does not appear to be in distress. HENMT Head: Yes normal to inspection, Yes normocephalic and Yes atraumatic Ears: external ears normal General nose exam: Normal external nose present Face and sinus: Yes normal facial exam Mouth: Normal oral and palatal mucosa present Throat: Yes posterior oropharynx normal Eyes General: appearance normal, both eyes and all related structures Pupils: Equal, round and reactive pupils present Neck Neck: Yes normal visual inspection, Yes no lymphadenopathy, Yes trachea midline and Yes supple Chest Chest palpation & inspection: normal inspection of the chest and normal palpation of entire chest wall Resp Effort & Inspection: normal respiratory effort and able to speak in complete sentences Auscultation: clear to auscultation bilaterally Cardio Rate: regular rate Rhythm: regular rhythm Heart sounds: S1 normal heart sound present, S2 normal heart sound present and no murmurs GI Inspection: Yes obesity Palpation (GI): Tenderness to palpation present (GI) (Moderate epigastric tenderness) Auscultation: normal bowel sounds General: Yes no CVA tenderness Back/Spine/Pelvis Back: no CVA tenderness Skin General skin exam: no rashes or lesions noted Neuro Cranial nerves: Yes CN's II-XII intact bilaterally and Yes Equal, round and reactive pupils present Cognition (Neuro): normal cognition Motor exam (neuro): 5/5 motor strength present throughout Extrem General: Yes normal to inspection Psych Appearance: grossly normal Speech and movement: Normal speech and movement present Affect: normal affect Attitude: cooperative Medications Administered Discontinued Medications Generic Name Dose Route Start Last Admin Trade Name Freq PRN Reason Stop Dose Admin Sodium Chloride 1,000 mls @ 999 mls/hr 02/14/23 13:27 02/14/23 15:30 Ns IV 02/14/23 14:27 999 mls/hr .Q1H1M STA Administration Ondansetron HCl 4 mg 02/14/23 13:27 02/14/23 15:30 Ondansetron Hcl 4 Mg/2 Ml Vial IVPUSH 02/14/23 13:28 4 mg ONCE ONE Administration Pantoprazole Sodium 40 mg 02/14/23 13:29 02/14/23 15:30 Pantoprazole Sodium 40 Mg/10 Ml Vial IVPUSH 02/14/23 13:30 40 mg ONCE ONE Administration Medical Decision Making Medical Decision Making MDM Narrative: 52-year-old male who presents emergency department for evaluation of nausea, vom iting, diarrhea and vomiting blood. The patient had dry heaves with episodes of hematemesis approximately 1 week prior and was hospitalized at [facility] for 2 days. Patient states that 3 days after being released from the hospital he did developed multiple episodes of loose watery, painful diarrhea which she attributes to eating [place]oese food. Patient was moving his bowels today when he had sudden onset of nausea and vomited at least 2 cups of bright red blood. He has also been complaining of epigastric pain times 2-3 days. Vital signs were normal. Examination did reveal an obese man with epigastric tenderness otherwise exam is unremarkable. I ordered a laboratory evaluation to include CBC, CMP, PT/INR, PTT, lipase, troponin, lactic acid, PT/INR, PTT, C diff, GI panel. Patient was ordered to get normal saline x1 L, Zofran 4 mg IV and Protonix 40 mg IV. 1556: Laboratory evaluation: H&H was normal 14.3 and 44.5. Glucose elevated 120 8. High sensitive troponin I detectable but not elevated at 14.9. COVID-19 negative. Coags normal. Given his normal H&H, I do not think the patient has had a significant upper GI bleed. Patient's symptoms are consistent with gastritis most likely related to NSAID use and alcohol use. I did discuss this with him. The patient will be started on Prilosec 20 mg daily for 1 month, Gaviscon extra-strength 4 times a day for 1 week, Zofran 4 mg ODT every 8 hours as needed for nausea and vomiting. Patient will be referred to GI . He was given printed and verbal instructions and discharged home. Lab Data 02/14/23 14:19 02/14/23 14:19 Labs: Lab Results 02/14/23 02/14/23 02/14/23 Range/Units 14:19 14:19 14:19 WBC 5.0 (4.8-10.8) X10*3/uL RBC 4.86 (4.60-5.80) X10*6/uL Hgb 14.3 (14.0-18.0) g/dl Hct 44.5 (42.0-52.0) % MCV 91.6 (80.0-98.0) fL MCH 29.4 (27.0-33.0) pg MCHC 32.1 (31.0-36.0) g/dl RDW 13.9 (11.0-16.0) % Plt Count 224 (160-400) X10*3/uL MPV 9.9 (9.4-12.4) fL Immature Gran % (Auto) 0.2 (0.0-0.4) % Neut % (Auto) 59.5 (45-73) % Lymph % (Auto) 27.2 (20-40) % Nance % (Auto) 9.9 (2-11) % Eos % (Auto) 2.0 (0-4) % Baso % (Auto) 1.2 (0-2) % Lymph # (Auto) 1.4 (1.2-4.9) X10*3/uL Nance # (Auto) 0.5 (0.1-1.2) X10*3/uL Eos # (Auto) 0.1 (0.0-0.4) X10*3/uL Baso # (Auto) 0.1 (0.0-0.2) X10*3/uL Abs Immat Gran (auto) 0.01 (0.00-0.03) X10*3/uL Absolute Neuts (auto) 3.0 (2.0-8.3) x10*3/uL Absolute Nucleated RBC 0.000 (0.0-0.012) X10*3/uL Nucleated RBC % (auto) 0.0 (0.0-0.2) /100WBC PT 13.3 H (10.0-13.1) SEC INR 1.2 H (0.9-1.1) APTT 34.2 (26.0-36.4) SEC Sodium 138 (135-145) mmol/L Potassium 4.5 (3.3-5.1) mmol/L Chloride 102 (96-108) mmol/L Carbon Dioxide 29 (22-29) mmol/L Anion Gap 12 (12-20) BUN 11 (9-16) mg/dL Creatinine 0.71 (0.5-1.4) mg/dL Estim Creat Clear Calc 132.5 Estimated GFR > 60 Random Glucose 128 H (60-115) mg/dL Lactic Acid (0.5-2.0) mmol/L Calcium 8.0 L (8.4-10.2) mg/dL Total Bilirubin 0.5 (0.0-1.0) mg/dL AST 25 (5-37) U/L ALT 25 (0-40) U/L Alkaline Phosphatase 73 (39-117) U/L Troponin I High Sens (<3.5-35.0) ng/L Total Protein 6.9 (6.5-8.0) g/dL Albumin 3.6 (3.5-5.0) g/dL Lipase 16 (8-78) U/L COVID-19 (DIDIER) (Negative) COVID-19 Clin Com 02/14/23 02/14/23 02/14/23 Range/Units 14:19 14:19 14:19 WBC (4.8-10.8) X10*3/uL RBC (4.60-5.80) X10*6/uL Hgb (14.0-18.0) g/dl Hct (42.0-52.0) % MCV (80.0-98.0) fL MCH (27.0-33.0) pg MCHC (31.0-36.0) g/dl RDW (11.0-16.0) % Plt Count (160-400) X10*3/uL MPV (9.4-12.4) fL Immature Gran % (Auto) (0.0-0.4) % Neut % (Auto) (45-73) % Lymph % (Auto) (20-40) % Nance % (Auto) (2-11) % Eos % (Auto) (0-4) % Baso % (Auto) (0-2) % Lymph # (Auto) (1.2-4.9) X10*3/uL Nance # (Auto) (0.1-1.2) X10*3/uL Eos # (Auto) (0.0-0.4) X10*3/uL Baso # (Auto) (0.0-0.2) X10*3/uL Abs Immat Gran (auto) (0.00-0.03) X10*3/uL Absolute Neuts (auto) (2.0-8.3) x10*3/uL Absolute Nucleated RBC (0.0-0.012) X10*3/uL Nucleated RBC % (auto) (0.0-0.2) /100WBC PT (10.0-13.1) SEC INR (0.9-1.1) APTT (26.0-36.4) SEC Sodium (135-145) mmol/L Potassium (3.3-5.1) mmol/L Chloride (96-108) mmol/L Carbon Dioxide (22-29) mmol/L Anion Gap (12-20) BUN (9-16) mg/dL Creatinine (0.5-1.4) mg/dL Estim Creat Clear Calc Estimated GFR Random Glucose (60-115) mg/dL Lactic Acid 2.0 (0.5-2.0) mmol/L Calcium (8.4-10.2) mg/dL Total Bilirubin (0.0-1.0) mg/dL AST (5-37) U/L ALT (0-40) U/L Alkaline Phosphatase (39-117) U/L Troponin I High Sens 14.9 (<3.5-35.0) ng/L Total Protein (6.5-8.0) g/dL Albumin (3.5-5.0) g/dL Lipase (8-78) U/L COVID-19 (DIDIER) Negative (Negative) COVID-19 Clin Com See Note Discharge Plan Discharge Clinical Impression: Hematemesis Gastritis Qualifiers: Chronicity: acute Gastritis bleeding: with bleeding Patient Disposition: Home, Self-Care Instructions: Gastritis (ED) Additional Instructions: Your hematocrit was normal at 44.5 suggesting that despite vomiting blood your not bleeding significantly, this is very reassuring. Your symptoms are consistent with inflammation of your stomach (gastritis) You need to stop taking nonsteroidal anti-inflammatory medications (NSAIDs) such as naproxen, Naprosyn, aspirin, ibuprofen, Motrin, Advil or Aleve. You need to stop drinking alcohol as well. Drinking alcohol and taking NSAIDs will make gastritis worse. Take Prilosec (omeprazole) 20 mg pills, 1 pill once a day for 1 month. This medication shuts off your acid production and lets the inflammation in your stomach and esophagus heal. Take extra-strength Gaviscon 10 mL (2 tsp) 4 times a day as needed for abdominal pain. Take Zofran ODT 4 mg pills, 1 pill dissolved in your mouth every 8 hours as needed for nausea and vomiting. Follow-up with your doctor in 2 days. Please return to the emergency department if your symptoms get worse or if you develop any symptoms that are concerning to you. Call our cracking still operator on-call to see if they can follow you up in 2 weeks. Prescriptions: New omeprazole 20 mg capsule,delayed release(DR/EC) 20 mg PO DAILY 30 Days Qty: 30 0RF Gaviscon Extra Strength 254-237.5 mg/5 mL suspension 10 ml PO QID Qty: 355 0RF ondansetron 4 mg tablet,disintegrating 4 mg PO Q6-8H PRN (Reason: nausea and vomiting) Qty: 14 0RF No Action escitalopram oxalate 20 mg Tablet 20 mg PO DAILY lisinopril 10 mg Tablet 10 mg PO DAILY hydroxyzine HCl 25 mg Tablet See Rx Instructions .ROUTE .COMPLEX PRN (Reason: Anxiety) Rx Instructions: 25 mg every 6 hours as needed furosemide 20 mg Tablet 20 mg PO DAILY clonidine HCl 0.1 mg Tablet See Rx Instructions .ROUTE .COMPLEX Rx Instructions: 0.1 mg every 4 hours as needed Referrals: Julissa Romo MD [Physician] - 2 weeks (Hematemesis, gastritis)
--- NOTE | 2023-02-14 13:29 | ECG_ITS ---
Test Reason : TACHYCARDIA Blood Pressure : / mmHG Vent. Rate : 107 BPM Atrial Rate : 107 BPM P-R Int : 176 ms QRS Dur : 090 ms QT Int : 374 ms P-R-T Axes : 057 -53 024 degrees QTc Int : 499 ms Sinus tachycardia Left axis deviation Low voltage QRS Cannot rule out Anterior infarct (cited on or before 24-DEC-2022) Abnormal ECG When compared with ECG of 24-DEC-2022 22:19, Premature atrial complexes are no longer Present Referred By: Gómez Mccormick Electronically Signed By:Daniel Major
[2023-02-14 14:29] LABS: MANUAL DIFF FLAG NO
[2023-02-14 14:30] LABS: Basophils Absolute Auto 0.1 X10*3/uL (0.0-0.2); Basophils Percent Auto 1.2 % (0-2); Eosinophils Absolute Auto 0.1 X10*3/uL (0.0-0.4); Hematocrit 44.5 % (42.0-52.0); Hemoglobin 14.3 g/dl (14.0-18.0); Imm Gran Abs Auto 0.01 X10*3/uL (0.00-0.03); Imm Gran Pct Auto 0.2 % (0.0-0.4); Lymphocytes Absolute Auto 1.4 X10*3/uL (1.2-4.9); Lymphocytes Percent Auto 27.2 % (20-40); Mean Corpuscular HGB Conc 32.1 g/dl (31.0-36.0); Mean Corpuscular Hemoglobin 29.4 pg (27.0-33.0); Mean Corpuscular Volume 91.6 fL (80.0-98.0); Mean Platelet Volume 9.9 fL (9.4-12.4); Monocytes Absolute Auto 0.5 X10*3/uL (0.1-1.2); Monocytes Percent Auto 9.9 % (2-11); Neutrophils Percent Auto 59.5 % (45-73); Platelet Count 224 X10*3/uL (160-400); Red Blood Count 4.86 X10*6/uL (4.60-5.80); Red Cell Distribution Width 13.9 % (11.0-16.0)
[2023-02-14 14:44] LABS: Alanine Aminotransferase 25 U/L (0-40); Albumin Level 3.6 g/dL (3.5-5.0); Alkaline Phosphatase 73 U/L (39-117); Anion Gap 12 (12-20); Aspartate Amino Transferase 25 U/L (5-37); Bilirubin Total 0.5 mg/dL (0.0-1.0); Blood Urea Nitrogen 11 mg/dL (9-16); Carbon Dioxide 29 mmol/L (22-29); Chloride 102 mmol/L (96-108); Creatinine Clr Calc Pharmacy 132.5; Estimated Glomerular Filt Rate > 60; Glucose Random 128 mg/dL (60-115); IDNOW Serial# BCCEAD1C; INTERNATIONAL NORM RATIO 1.2 (0.9-1.1); Lipase 16 U/L (8-78); Potassium 4.5 mmol/L (3.3-5.1); Prothrombin Time 13.3 SEC (10.0-13.1); Sodium 138 mmol/L (135-145); Total Protein 6.9 g/dL (6.5-8.0)
[2023-02-14 14:45] LABS: COVID-19 Test Negative (Negative)
[2023-02-14 14:46] LABS: Partial Thromboplastin Time 34.2 SEC (26.0-36.4)
[2023-02-14 14:51] LABS: Troponin-I High Sensitivity 14.9 ng/L (<3.5-35.0)
[2023-02-14] MEDS: Pantoprazole Sodium 40 MG/10 ML VIAL IVPUSH (15:30)
[2023-02-14] MEDS: ondansetron HCL 4 MG/2 ML VIAL IVPUSH (15:30)
[2023-02-14] MEDS: 0.9 % Sodium Chloride 1,000 ML 999 ML IV (15:30)
[2023-02-14 16:00] VITALS: BP 118/81; PULSE 101; RESP 16; TEMP 36.8; O2SAT 98
--- NOTE | 2023-02-14 16:26 | PC.NURSE ---
attempted to d/cpt, stating he needs his phone charged so he can call a ride, denies bus pass from staff. Charge nurse aware.
== END 2023-02-14 17:50 | disposition home or self-care (01) ==
PROVIDERS: Emergency Provider Emergency Medicine Emergency Medical Services
DX: K92.0 Hematemesis (principal); K29.01 Acute gastritis with bleeding; R10.13 Epigastric pain; Z20.822 Contact with and (suspected) exposure to COVID-19; E11.9 Type 2 diabetes mellitus without complications; I10 Essential (primary) hypertension; F10.20 Alcohol dependence, uncomplicated; Y90.9 Presence of alcohol in blood, level not specified; Z79.899 Other long term (current) drug therapy
CPT/HCPCS: 80053; 83605; 83690; 84484; 85025; 85610; 85730; 86850; 86900; 86901; 87635; 93005; 96361; 96374; 96375; 99284; 99285; J2405

== ENCOUNTER 2023-02-15 01:51 | Inpatient (IN) | payer OTHER, MEDICARE, MEDICAID, SELFPAY ==
[2023-02-15] VITALS (10 sets, daily range): BP systolic 143–195; BP diastolic 78–117; PULSE 86–102; RESP 16–20; TEMP 36.3–36.7; O2SAT 92–98; BMI 58.6
--- NOTE | 2023-02-15 01:55 | ED.ABDPAIN ---
HPI - Abdominal Pain General Chief Complaint: Nausea/Vomiting/Diarrhea <Maxime Lucas MD - Last Filed: 02/15/23 05:25> Stated Complaint: vomiting blood <Maxime Lucas MD - Last Filed: 02/15/23 05:25> Time Seen by Provider: 02/15/23 01:54 <Maxime Lucas MD - Last Filed: 02/15/23 05:25> Source: patient <Maxime Lucas MD - Last Filed: 02/15/23 05:25> Mode of arrival: ambulatory <Maxime Lucas MD - Last Filed: 02/15/23 05:25> Limitations: no limitations <Maxime Lucas MD - Last Filed: 02/15/23 05:25> History of Present Illness HPI narrative: Patient history of alcohol abuse currently drinks occasionally, history of depression was seen here earlier today for 2 days of vomiting and had streaks of blood in that of the vomitus patient comes back as when he went home continued to vomit, vomited about 4 times and has some blood which has not decreased in amount no blood clots. Patient also complaining of increased depression anxiety asking for some help had suicidal thoughts in the past nothing current <Maxime Lucas MD - Last Filed: 02/15/23 05:25> Related Data Home Medications: Home Medications Medication Instructions Recorded Confirmed escitalopram oxalate 10 mg tablet 10 mg PO DAILY 02/15/23 02/15/23 naltrexone 50 mg tablet 50 mg PO DAILY 02/15/23 02/15/23 pantoprazole 40 mg tablet,delayed 40 mg PO DAILY 02/15/23 02/15/23 release <Maxime Lucas MD - Last Filed: 02/15/23 05:25> Allergies/Adverse Reactions: Allergies Allergy/AdvReac Type Severity Reaction Status Date / Time No Known Allergies Allergy Verified 02/15/23 01:56 <Maxime Lucas MD - Last Filed: 02/15/23 05:25> Review of Systems Review of Systems Yes all other systems are reviewed and are negative <MD Ray Lugo Last Filed: 02/15/23 05:25> PMFSH Past Medical History Medical History: Medical History Alcohol use disorder, severe, dependence Anxiety Arthritis Depression Diabetes mellitus, type 2 Herniated disc Hypertension Obesity PTSD (post-traumatic stress disorder) Sleep apnea Systolic heart failure <Maxime Lucas MD - Last Filed: 02/15/23 05:25> Family History Family History: Family History Mother Diabetes <Maxime Lucas MD - Last Filed: 02/15/23 05:25> Social History Social History: Social History Household Members: None Housing: Apartment Do you presently have visiting nurse or other home services: No Alcohol intake: current Alcohol intake frequency: does not drink Alcohol type: wine Patient Tobacco Use Status: Never used Tobacco Smoked in Last 30 Days: No Use of substances other than those prescribed or required for medical reasons: No Advance Directives: No Advance Directives Information Provided: Yes service: Yes ([employer] three years) Sexual orientation: Straight/Heterosexual <Maxime Lucas MD - Last Filed: 02/15/23 05:25> Physical Exam ED Vital Signs: Vital Signs - 24 hr 02/15/23 01:57 02/15/23 03:40 02/15/23 07:17 Temperature 97.9 F Pulse Rate 102 H 86 96 Respiratory Rate 16 17 20 Blood Pressure 153/108 H 150/87 H 173/100 H Pulse Oximetry 94 98 94 Oxygen Delivery Method Room Air Room Air Room Air 02/15/23 11:24 Temperature Pulse Rate 88 Respiratory Rate 20 Blood Pressure 195/117 H Pulse Oximetry 92 Oxygen Delivery Method Room Air BMI result Body Mass Index 58.6 <Maxime Lucas MD - Last Filed: 02/15/23 05:25> Vital Signs - 24 hr 02/15/23 01:57 02/15/23 03:40 02/15/23 07:17 Temperature 97.9 F Pulse Rate 102 H 86 96 Respiratory Rate 16 17 20 Blood Pressure 153/108 H 150/87 H 173/100 H Pulse Oximetry 94 98 94 Oxygen Delivery Method Room Air Room Air Room Air 02/15/23 11:24 Temperature Pulse Rate 88 Respiratory Rate 20 Blood Pressure 195/117 H Pulse Oximetry 92 Oxygen Delivery Method Room Air BMI result Body Mass Index 58.6 <Gómez Mccormick MD - Last Filed: 02/15/23 11:55> Appearance: Alert. Oriented X3. No acute distress. Obese Eyes: PERRLA, No Nystagmus ENT: Pharynx normal. Oral Mucosa moist Neck: Normal inspection. Neck supple. CVS: Normal heart rate and rhythm. Pulses normal. Respiratory: No respiratory distress. Equal air entry bilateral, no wheezing/rales/rhonchi Abdomen: Soft and mild epigastric tenderness Bowel sounds are present, no mass palpable, no CVA tenderness Skin: Skin warm and dry. Normal skin color. Normal skin turgor. Extremities: No lower extremity edema. No calf tenderness psych: Looks depressed no current SI/HI or hallucinations /delusions Neuro: Oriented X 3. No motor deficit. No sensory deficit.No cerebellar signs , cranial nerves II-XII intact <Maxime Lucas MD - Last Filed: 02/15/23 05:25> Medical Decision Making Medical Decision Making MDM Narrative: Patient with depression with acute gastritis with minor upper GI bleed secondary to esophagitis H&H stable during stay in the ER patient complaining of increased depression asking for help to see care team. Patient does take Lexapro but does not have any psychiatrist or therapist. Will get care team involved for evaluation patient does have a thought about SI but currently does not . <Maxime Lucas MD - Last Filed: 02/15/23 05:25> Patient with depression with acute gastritis with minor upper GI bleed secondary to esophagitis H&H stable during stay in the ER patient complaining of increased depression asking for help to see care team. Patient does take Lexapro but does not have any psychiatrist or therapist. Will get care team involved for evaluation patient does have a thought about SI but currently does not . 0656: Start physician observation: The patient presented with increased depression. The patient's medications have been reconciled and ordered by me. The patient will be kept in physician observation in the emergency department [facility] until he can be evaluated by the care team and appropriate disposition can be determined. 1154: Continue physician observation: Patient was noted to have elevated blood pressures. Was initially given Ativan 2 mg orally with no improvement. The patient does have a history of essential hypertension but has been off his medications since October 2022. Therefore I ordered his outpatient regimen of lisinopril 10 mg daily, 1 dose given now and Lopressor 25 mg twice a day 1 dose given now. <Gómez Mccormick MD - Last Filed: 02/15/23 11:55> Lab Data [facility] Lab Attestation statement: I reviewed the patient's lab results. <Maxime Lucas MD - Last Filed: 02/15/23 05:25> Result Diagrams: 02/15/23 02:35 02/15/23 02:35 <Maxime Lucas MD - Last Filed: 02/15/23 05:25> Labs: Lab Results 02/15/23 02/15/23 02/15/23 Range/Units 02:35 02:35 05:16 WBC 6.1 (4.8-10.8) X10*3/uL RBC 4.88 (4.60-5.80) X10*6/uL Hgb 14.7 (14.0-18.0) g/dl Hct 44.2 (42.0-52.0) % MCV 90.6 (80.0-98.0) fL MCH 30.1 (27.0-33.0) pg MCHC 33.3 (31.0-36.0) g/dl RDW 13.7 (11.0-16.0) % Plt Count 235 (160-400) X10*3/uL MPV 10.1 (9.4-12.4) fL Absolute Nucleated RBC 0.000 (0.0-0.012) X10*3/uL Nucleated RBC % (auto) 0.0 (0.0-0.2) /100WBC Sodium 138 (135-145) mmol/L Potassium 4.3 (3.3-5.1) mmol/L Chloride 101 (96-108) mmol/L Carbon Dioxide 24 (22-29) mmol/L Anion Gap 17 (12-20) BUN 9 (9-16) mg/dL Creatinine 0.73 (0.5-1.4) mg/dL Estim Creat Clear Calc 207.8 Estimated GFR > 60 Random Glucose 96 (60-115) mg/dL Calcium 8.4 (8.4-10.2) mg/dL Total Bilirubin 0.7 (0.0-1.0) mg/dL Direct Bilirubin 0.3 (0.0-0.5) mg/dL AST 24 (5-37) U/L ALT 24 (0-40) U/L Alkaline Phosphatase 70 (39-117) U/L Total Protein 7.1 (6.5-8.0) g/dL Albumin 3.8 (3.5-5.0) g/dL Lipase 14 (8-78) U/L Urine Color Urine Appearance Urine pH (5.0-9.0) Ur Specific [place] (1.005-1.025) Urine Protein (Neg-Trace) mg/dL Urine Glucose (UA) (Negative) mg/dL Urine Ketones (Negative) mg/dL Urine Blood (Negative) Urine Nitrite (Negative) Ur Leukocyte Esterase (Negative) Urine RBC (0-2) /HPF Urine WBC (0-5) /HPF Ur Squamous Epith Cells (0-2) /HPF Urine Bacteria (None Seen) Hyaline Casts (0-2) /LPF Urine Opiates Screen (Not Detect) Urine Fentanyl Screen (Not Detect) Ur Barbiturates Screen (Not Detect) Ur Phencyclidine Scrn (Not Detect) Ur Amphetamines Screen (Not Detect) U Benzodiazepines Scrn (Not Detect) Urine Cocaine Screen (Not Detect) U Marijuana (THC) Screen (Not Detect) Ethyl Alcohol 65 mg/dL COVID-19 (DIDIER) Negative (Negative) COVID-19 Clin Com See Note 02/15/23 02/15/23 Range/Units 05:16 05:16 WBC (4.8-10.8) X10*3/uL RBC (4.60-5.80) X10*6/uL Hgb (14.0-18.0) g/dl Hct (42.0-52.0) % MCV (80.0-98.0) fL MCH (27.0-33.0) pg MCHC (31.0-36.0) g/dl RDW (11.0-16.0) % Plt Count (160-400) X10*3/uL MPV (9.4-12.4) fL Absolute Nucleated RBC (0.0-0.012) X10*3/uL Nucleated RBC % (auto) (0.0-0.2) /100WBC Sodium (135-145) mmol/L Potassium (3.3-5.1) mmol/L Chloride (96-108) mmol/L Carbon Dioxide (22-29) mmol/L Anion Gap (12-20) BUN (9-16) mg/dL Creatinine (0.5-1.4) mg/dL Estim Creat Clear Calc Estimated GFR Random Glucose (60-115) mg/dL Calcium (8.4-10.2) mg/dL Total Bilirubin (0.0-1.0) mg/dL Direct Bilirubin (0.0-0.5) mg/dL AST (5-37) U/L ALT (0-40) U/L Alkaline Phosphatase (39-117) U/L Total Protein (6.5-8.0) g/dL Albumin (3.5-5.0) g/dL Lipase (8-78) U/L Urine Color Yellow Urine Appearance Clear Urine pH 7.5 (5.0-9.0) Ur Specific [place] 1.015 (1.005-1.025) Urine Protein Negative (Neg-Trace) mg/dL Urine Glucose (UA) Negative (Negative) mg/dL Urine Ketones Negative (Negative) mg/dL Urine Blood Negative (Negative) Urine Nitrite Negative (Negative) Ur Leukocyte Esterase Negative (Negative) Urine RBC 0-2 (0-2) /HPF Urine WBC 0-5 (0-5) /HPF Ur Squamous Epith Cells 0-2 (0-2) /HPF Urine Bacteria None Seen (None Seen) Hyaline Casts 0-2 (0-2) /LPF Urine Opiates Screen Not Detected (Not Detect) Urine Fentanyl Screen Not Detected (Not Detect) Ur Barbiturates Screen Not Detected (Not Detect) Ur Phencyclidine Scrn Not Detected (Not Detect) Ur Amphetamines Screen Not Detected (Not Detect) U Benzodiazepines Scrn Not Detected (Not Detect) Urine Cocaine Screen Not Detected (Not Detect) U Marijuana (THC) Screen Not Detected (Not Detect) Ethyl Alcohol mg/dL COVID-19 (DIDIER) (Negative) COVID-19 Clin Com <Maxime Lucas MD - Last Filed: 02/15/23 05:25> Lab Results 02/15/23 02/15/23 02/15/23 Range/Units 02:35 02:35 05:16 WBC 6.1 (4.8-10.8) X10*3/uL RBC 4.88 (4.60-5.80) X10*6/uL Hgb 14.7 (14.0-18.0) g/dl Hct 44.2 (42.0-52.0) % MCV 90.6 (80.0-98.0) fL MCH 30.1 (27.0-33.0) pg MCHC 33.3 (31.0-36.0) g/dl RDW 13.7 (11.0-16.0) % Plt Count 235 (160-400) X10*3/uL MPV 10.1 (9.4-12.4) fL Absolute Nucleated RBC 0.000 (0.0-0.012) X10*3/uL Nucleated RBC % (auto) 0.0 (0.0-0.2) /100WBC Sodium 138 (135-145) mmol/L Potassium 4.3 (3.3-5.1) mmol/L Chloride 101 (96-108) mmol/L Carbon Dioxide 24 (22-29) mmol/L Anion Gap 17 (12-20) BUN 9 (9-16) mg/dL Creatinine 0.73 (0.5-1.4) mg/dL Estim Creat Clear Calc 207.8 Estimated GFR > 60 Random Glucose 96 (60-115) mg/dL Calcium 8.4 (8.4-10.2) mg/dL Total Bilirubin 0.7 (0.0-1.0) mg/dL Direct Bilirubin 0.3 (0.0-0.5) mg/dL AST 24 (5-37) U/L ALT 24 (0-40) U/L Alkaline Phosphatase 70 (39-117) U/L Total Protein 7.1 (6.5-8.0) g/dL Albumin 3.8 (3.5-5.0) g/dL Lipase 14 (8-78) U/L Urine Color Urine Appearance Urine pH (5.0-9.0) Ur Specific [place] (1.005-1.025) Urine Protein (Neg-Trace) mg/dL Urine Glucose (UA) (Negative) mg/dL Urine Ketones (Negative) mg/dL Urine Blood (Negative) Urine Nitrite (Negative) Ur Leukocyte Esterase (Negative) Urine RBC (0-2) /HPF Urine WBC (0-5) /HPF Ur Squamous Epith Cells (0-2) /HPF Urine Bacteria (None Seen) Hyaline Casts (0-2) /LPF Urine Opiates Screen (Not Detect) Urine Fentanyl Screen (Not Detect) Ur Barbiturates Screen (Not Detect) Ur Phencyclidine Scrn (Not Detect) Ur Amphetamines Screen (Not Detect) U Benzodiazepines Scrn (Not Detect) Urine Cocaine Screen (Not Detect) U Marijuana (THC) Screen (Not Detect) Ethyl Alcohol 65 mg/dL COVID-19 (DIDIER) Negative (Negative) COVID-19 Clin Com See Note 02/15/23 02/15/23 Range/Units 05:16 05:16 WBC (4.8-10.8) X10*3/uL RBC (4.60-5.80) X10*6/uL Hgb (14.0-18.0) g/dl Hct (42.0-52.0) % MCV (80.0-98.0) fL MCH (27.0-33.0) pg MCHC (31.0-36.0) g/dl RDW (11.0-16.0) % Plt Count (160-400) X10*3/uL MPV (9.4-12.4) fL Absolute Nucleated RBC (0.0-0.012) X10*3/uL Nucleated RBC % (auto) (0.0-0.2) /100WBC Sodium (135-145) mmol/L Potassium (3.3-5.1) mmol/L Chloride (96-108) mmol/L Carbon Dioxide (22-29) mmol/L Anion Gap (12-20) BUN (9-16) mg/dL Creatinine (0.5-1.4) mg/dL Estim Creat Clear Calc Estimated GFR Random Glucose (60-115) mg/dL Calcium (8.4-10.2) mg/dL Total Bilirubin (0.0-1.0) mg/dL Direct Bilirubin (0.0-0.5) mg/dL AST (5-37) U/L ALT (0-40) U/L Alkaline Phosphatase (39-117) U/L Total Protein (6.5-8.0) g/dL Albumin (3.5-5.0) g/dL Lipase (8-78) U/L Urine Color Yellow Urine Appearance Clear Urine pH 7.5 (5.0-9.0) Ur Specific [place] 1.015 (1.005-1.025) Urine Protein Negative (Neg-Trace) mg/dL Urine Glucose (UA) Negative (Negative) mg/dL Urine Ketones Negative (Negative) mg/dL Urine Blood Negative (Negative) Urine Nitrite Negative (Negative) Ur Leukocyte Esterase Negative (Negative) Urine RBC 0-2 (0-2) /HPF Urine WBC 0-5 (0-5) /HPF Ur Squamous Epith Cells 0-2 (0-2) /HPF Urine Bacteria None Seen (None Seen) Hyaline Casts 0-2 (0-2) /LPF Urine Opiates Screen Not Detected (Not Detect) Urine Fentanyl Screen Not Detected (Not Detect) Ur Barbiturates Screen Not Detected (Not Detect) Ur Phencyclidine Scrn Not Detected (Not Detect) Ur Amphetamines Screen Not Detected (Not Detect) U Benzodiazepines Scrn Not Detected (Not Detect) Urine Cocaine Screen Not Detected (Not Detect) U Marijuana (THC) Screen Not Detected (Not Detect) Ethyl Alcohol mg/dL COVID-19 (DIDIER) (Negative) COVID-19 Clin Com <Gómez Mccormick MD - Last Filed: 02/15/23 11:55> Medications Administered Generic Name Dose Route Start Last Admin Trade Name Freq PRN Reason Stop Dose Admin Escitalopram Oxalate 10 mg 02/15/23 09:00 02/15/23 09:05 Escitalopram Oxalate 10 Mg Tablet PO 10 mg DAILY TOBY Administration Naltrexone HCl 50 mg 02/15/23 09:00 02/15/23 09:05 Naltrexone Hcl 50 Mg Tablet PO 50 mg DAILY TOBY Administration Omeprazole 20 mg 02/16/23 06:30 02/15/23 09:05 Omeprazole 20 Mg Capsule.Dr PO 20 mg DAILY@0630 TOBY Administration Discontinued Medications Generic Name Dose Route Start Last Admin Trade Name Freq PRN Reason Stop Dose Admin Al Hydroxide/Mg Hydroxide 30 ml 02/15/23 02:59 02/15/23 03:19 Magnesium Hydrox/Alum Hydrox 30 Ml Oral.Susp PO 02/15/23 03:00 30 ml ONCE ONE Administration Al Hydroxide/Mg Hydroxide 30 ml 02/15/23 07:05 02/15/23 07:10 Magnesium Hydrox/Alum Hydrox 30 Ml Oral.Susp PO 02/15/23 07:06 30 ml ONCE STA Administration Sodium Chloride 1,000 mls @ 999 mls/hr 02/15/23 03:00 02/15/23 05:01 Ns IV 02/15/23 04:00 Infused .Q1H1M ONE Infusion Lorazepam 2 mg 02/15/23 10:49 02/15/23 10:58 Lorazepam 1 Mg Tablet PO 02/15/23 10:50 2 mg ONCE STA Administration Ondansetron HCl 4 mg 02/15/23 03:00 02/15/23 03:19 Ondansetron Hcl 4 Mg/2 Ml Vial IVPUSH 02/15/23 03:01 4 mg ONCE ONE Administration <Maxime Lucas MD - Last Filed: 02/15/23 05:25> Medications Administered Generic Name Dose Route Start Last Admin Trade Name Freq PRN Reason Stop Dose Admin Escitalopram Oxalate 10 mg 02/15/23 09:00 02/15/23 09:05 Escitalopram Oxalate 10 Mg Tablet PO 10 mg DAILY TOBY Administration Naltrexone HCl 50 mg 02/15/23 09:00 02/15/23 09:05 Naltrexone Hcl 50 Mg Tablet PO 50 mg DAILY TOBY Administration Omeprazole 20 mg 02/16/23 06:30 02/15/23 09:05 Omeprazole 20 Mg Capsule.Dr PO 20 mg DAILY@0630 TOBY Administration Discontinued Medications Generic Name Dose Route Start Last Admin Trade Name Freq PRN Reason Stop Dose Admin Al Hydroxide/Mg Hydroxide 30 ml 02/15/23 02:59 02/15/23 03:19 Magnesium Hydrox/Alum Hydrox 30 Ml Oral.Susp PO 02/15/23 03:00 30 ml ONCE ONE Administration Al Hydroxide/Mg Hydroxide 30 ml 02/15/23 07:05 02/15/23 07:10 Magnesium Hydrox/Alum Hydrox 30 Ml Oral.Susp PO 02/15/23 07:06 30 ml ONCE STA Administration Sodium Chloride 1,000 mls @ 999 mls/hr 02/15/23 03:00 02/15/23 05:01 Ns IV 02/15/23 04:00 Infused .Q1H1M ONE Infusion Lorazepam 2 mg 02/15/23 10:49 02/15/23 10:58 Lorazepam 1 Mg Tablet PO 02/15/23 10:50 2 mg ONCE STA Administration Ondansetron HCl 4 mg 02/15/23 03:00 02/15/23 03:19 Ondansetron Hcl 4 Mg/2 Ml Vial IVPUSH 02/15/23 03:01 4 mg ONCE ONE Administration <Gómez Mccormick MD - Last Filed: 02/15/23 11:55> Discharge Plan Discharge Clinical Impression: Acute gastritis with bleeding, Depression <Maxime Lucas MD - Last Filed: 02/15/23 05:25> Patient Disposition: Still a Patient <Maxime Lucas MD - Last Filed: 02/15/23 05:25> Prescriptions: No Action pantoprazole 40 mg tablet,delayed release (DR/EC) 40 mg PO DAILY escitalopram oxalate 10 mg tablet 10 mg PO DAILY naltrexone 50 mg tablet 50 mg PO DAILY <Maxime Lucas MD - Last Filed: 02/15/23 05:25>
--- NOTE | 2023-02-15 02:15 | PC.NURSE ---
pt a&o, no sob or chest pain, pt complaining of vomiting blood, was seen here earlier today. Will continue to monitor.
[2023-02-15 02:44] LABS: Hematocrit 44.2 % (42.0-52.0); Hemoglobin 14.7 g/dl (14.0-18.0); Mean Corpuscular HGB Conc 33.3 g/dl (31.0-36.0); Mean Corpuscular Hemoglobin 30.1 pg (27.0-33.0); Mean Corpuscular Volume 90.6 fL (80.0-98.0); Mean Platelet Volume 10.1 fL (9.4-12.4); Platelet Count 235 X10*3/uL (160-400); Red Blood Count 4.88 X10*6/uL (4.60-5.80); Red Cell Distribution Width 13.7 % (11.0-16.0); White Blood Count 6.1 X10*3/uL (4.8-10.8)
[2023-02-15 03:05] LABS: Alanine Aminotransferase 24 U/L (0-40); Albumin Level 3.8 g/dL (3.5-5.0); Alkaline Phosphatase 70 U/L (39-117); Anion Gap 17 (12-20); Aspartate Amino Transferase 24 U/L (5-37); Bilirubin Direct 0.3 mg/dL (0.0-0.5); Bilirubin Total 0.7 mg/dL (0.0-1.0); Blood Urea Nitrogen 9 mg/dL (9-16); Calcium 8.4 mg/dL (8.4-10.2); Carbon Dioxide 24 mmol/L (22-29); Chloride 101 mmol/L (96-108); Creatinine Clr Calc Pharmacy 207.8; Estimated Glomerular Filt Rate > 60; Glucose Random 96 mg/dL (60-115); Lipase 14 U/L (8-78); Potassium 4.3 mmol/L (3.3-5.1); Sodium 138 mmol/L (135-145); Total Protein 7.1 g/dL (6.5-8.0)
[2023-02-15] MEDS: Magnesium Hydrox/Alum Hydrox 30 ML ORAL.SUSP PO ×3 (03:19→17:10)
[2023-02-15] MEDS: 0.9 % Sodium Chloride 1,000 ML 999 ML IV (03:19)
[2023-02-15] MEDS: ondansetron HCL 4 MG/2 ML VIAL IVPUSH (03:19)
--- NOTE | 2023-02-15 03:32 | PC.NURSE ---
pt medicated per Mar.
--- NOTE | 2023-02-15 05:02 | PC.NURSE ---
provider into see pt, pt being transferred to Pod.
[2023-02-15 05:11] LABS: Ethanol 65 mg/dL
[2023-02-15 05:24] LABS: Appearance Urine Clear; Color Urine Yellow; Glucose Urine UA Negative (Negative); Leukocyte Esterase Urine Negative (Negative); Nitrite Urine Negative (Negative); PH 7.5 (5.0-9.0); Specific Gravity - Urine 1.015 (1.005-1.025); Urine Blood Negative (Negative); Urine Ketones Negative (Negative); Urine Protein Negative (Neg-Trace)
[2023-02-15 05:26] LABS: Bacteria Urine None Seen (None Seen); Hyaline Casts Urine 0-2 /LPF (0-2); RBC Urine 0-2 /HPF (0-2); Squamous Epithelial Cell Urine 0-2 /HPF (0-2); WBC Urine 0-5 /HPF (0-5)
[2023-02-15 05:35] LABS: Amphetamine Screen Urine Not Detected (Not Detect); Barbiturates, Urine Not Detected (Not Detect); Benzodiazepines Screen Urine Not Detected (Not Detect); Cannabinoid Screen Urine Not Detected (Not Detect); Cocaine Screen Urine Not Detected (Not Detect); Fentanyl, urine Not Detected (Not Detect); Opiate Screen Urine Not Detected (Not Detect); Phencyclidine Screen Urine Not Detected (Not Detect)
--- NOTE | 2023-02-15 05:40 | PC.NURSE ---
Patient just got transferred from main ED, independent gait, compliant with change manager, behavior non concerning and pleasant, med rec completed/pending provider;s approval, care consult ordered/pending evaluation in the morning, VSS, will continue to monitor.
[2023-02-15 05:43] LABS: COVID-19 Test Negative (Negative); IDNOW Serial# 6674DD1D
--- NOTE | 2023-02-15 07:34 | PC.NURSE ---
patient appears to remain asleep at present respirations are even and unlabored patient appears in no distress
[2023-02-15] MEDS: Naltrexone HCl 50 MG TABLET PO (09:05)
[2023-02-15] MEDS: Escitalopram Oxalate 10 MG TABLET PO (09:05)
[2023-02-15] MEDS: Omeprazole 20 MG CAPSULE.DR PO (09:05)
[2023-02-15] MEDS: LORazepam 1 MG TABLET 2 MG PO ×2 (10:58→21:31)
[2023-02-15] MEDS: Metoprolol Tartrate 25 MG TABLET PO ×2 (12:09→21:14)
[2023-02-15] MEDS: lisinopriL 10 MG TABLET PO (12:10)
--- NOTE | 2023-02-15 12:58 | ECG_ITS ---
Test Reason : ASSES QT INTERVAL Blood Pressure : / mmHG Vent. Rate : 096 BPM Atrial Rate : 096 BPM P-R Int : 178 ms QRS Dur : 094 ms QT Int : 398 ms P-R-T Axes : 053 -79 007 degrees QTc Int : 502 ms Sinus rhythm with sinus arrhythmia with occasional Premature ventricular complexes Possible Left atrial enlargement Left axis deviation Incomplete right bundle branch block Anterior infarct (cited on or before 24-DEC-2022) Prolonged QT Abnormal ECG When compared with ECG of 14-FEB-2023 13:50, Premature ventricular complexes are now Present Referred By: Gómez Mccormick Electronically Signed By:VERNA TORRES MD
--- NOTE | 2023-02-15 13:22 | MHC.CARE ---
patient is a voluntary inpatient psych LOC bed search at this time.
--- NOTE | 2023-02-16 | ECG_ITS ---
Test Reason : QTC Blood Pressure : / mmHG Vent. Rate : 103 BPM Atrial Rate : 103 BPM P-R Int : 174 ms QRS Dur : 094 ms QT Int : 382 ms P-R-T Axes : 052 -60 014 degrees QTc Int : 500 ms Sinus tachycardia with frequent Premature ventricular complexes Possible Left atrial enlargement Left axis deviation Incomplete right bundle branch block Anterior infarct (cited on or before 24-DEC-2022) Abnormal ECG When compared with ECG of 15-FEB-2023 13:17, No significant change was found Referred By: Victorina Burks Electronically Signed By:VERNA TORRES MD
--- NOTE | 2023-02-16 02:20 | PC.ADMIT ---
Miguel Ángel was admitted to the unit at 2245 via WC from [facility] for ILPOC, plan of care goals include safety, stabilization and medication management. Psychiatric diagnosis include Depression, anxiety, SI, PTSD and ETOH dependence. Medical diagnosis include TERRIE, HTN, T2 DM, arthritis and obesity. Sharps/clothing check completed by counselor, unit tour given. COVID negative, labs WNL, EKG QT 398, QTc 502, BAL 65. Miguel Ángel signed a CV and a 3 day which is up for resolution on 02/20/23, he is A/O x 3, independent with ADL's, ad-татьяна with steady gait. Reason for admit D/T increased depression, SI with vague plan to OD on heroin and float away. Miguel Ángel was cooperative with admission assessment, denies SI/HI/AVH, CIWA score 0. BP was elevated in the ER 182/92 D/T no antihypertensive medication since 11/03, BP decreased to 154/88 prior to transfer. POC initiated, CIWA every 4 hours WA, 15 min unit safety observation except while using CPAP.
[2023-02-16] MEDS: Omeprazole 20 MG CAPSULE.DR PO (06:57)
[2023-02-16 08:22] VITALS: BP 183/124; PULSE 105; RESP 18; TEMP 36.6; O2SAT 93
[2023-02-16] MEDS: Naltrexone HCl 50 MG TABLET PO (08:34)
[2023-02-16] MEDS: Escitalopram Oxalate 10 MG TABLET PO (08:34)
[2023-02-16] MEDS: lisinopriL 10 MG TABLET PO (08:34)
[2023-02-16] MEDS: Metoprolol Tartrate 25 MG TABLET PO ×2 (08:34→23:16)
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
[2023-02-16] MEDS: amLODIPine Besylate 5 MG TABLET PO (10:56)
[2023-02-16] MEDS: Sennosides/Docusate Sodium TABLET 1 TAB PO ×2 (10:56→23:16)
[2023-02-16] MEDS: Magnesium Hydrox/Alum Hydrox 30 ML ORAL.SUSP PO ×2 (10:57→22:39)
[2023-02-16 11:02] VITALS: BP 141/89; PULSE 80
--- NOTE | 2023-02-16 20:44 | MHC.RECOVSUP ---
? Reason for consult:ETOH o? Current location:307-1? o? Identified substance use concern:? -? Support ? Intervention: o? Community resources provided o? Harm reduction discussion ? Plan: ? Additional information:RC met with this patient, and discussed sustainability coach services, pt was provided with recovery service pamphlets, and phone numbers. Pt stated he's interested in obtaining a RC, and will call me upon discharge to complete referral.
[2023-02-16 23:15] VITALS: BP 201/79; PULSE 96; RESP 18; TEMP 37; O2SAT 93
--- NOTE | 2023-02-17 04:56 | PC.NURSE ---
0400 CIWA not completed as pt currently asleep and snoring.
[2023-02-17 08:00] VITALS: BP 108/64; PULSE 87; TEMP 36.3; O2SAT 92
[2023-02-17] MEDS: Magnesium Hydrox/Alum Hydrox 30 ML ORAL.SUSP PO (08:04)
[2023-02-17] MEDS: Escitalopram Oxalate 10 MG TABLET PO (08:06)
[2023-02-17] MEDS: Sennosides/Docusate Sodium TABLET 1 TAB PO (08:06)
[2023-02-17] MEDS: Metoprolol Tartrate 25 MG TABLET PO (08:06)
[2023-02-17] MEDS: amLODIPine Besylate 5 MG TABLET PO (08:06)
[2023-02-17] MEDS: lisinopriL 10 MG TABLET PO (08:07)
[2023-02-17] MEDS: Omeprazole 20 MG CAPSULE.DR PO ×2 (08:07→11:56)
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
== END 2023-02-17 13:37 | disposition home or self-care (01) | DRG 885 ==
LOC: HO.ED 11:48 → HO.PADLT16 22:41
PROVIDERS: Internal Medicine; Admitting Provider Psychiatry & Neurology Psychiatry; Emergency Provider Emergency Medicine Emergency Medical Services; Visit Provider Psychiatry & Neurology Psychiatry
DX: F33.1 Major depressive disorder, recurrent, moderate (principal); R45.851 Suicidal ideations; F43.10 Post-traumatic stress disorder, unspecified; Y90.3 Blood alcohol level of 60-79 mg/100 ml; F10.20 Alcohol dependence, uncomplicated; Z91.199 Patient's noncompliance with other medical treatment and regimen due to unspecified reason; Z20.822 Contact with and (suspected) exposure to COVID-19; Z79.899 Other long term (current) drug therapy
CPT/HCPCS: 36415; 80053; 80307; 81001; 82077; 82248; 83690; 85027; 87635; 93005; 99285; J2405; S9485

== ENCOUNTER 2023-03-13 10:46 | Observation (INO) | payer OTHER, MEDICARE, MEDICAID, SELFPAY ==
[2023-03-13] VITALS (11 sets, daily range): BP systolic 154–184; BP diastolic 92–111; PULSE 63–103; RESP 16–22; TEMP 36.5–37.1; O2SAT 86–97; BMI 60.2
--- NOTE | 2023-03-13 | ECG_ITS ---
Test Reason : CHEST PAIN Blood Pressure : / mmHG Vent. Rate : 101 BPM Atrial Rate : 101 BPM P-R Int : 182 ms QRS Dur : 090 ms QT Int : 398 ms P-R-T Axes : 042 -68 018 degrees QTc Int : 516 ms Sinus tachycardia Possible Left atrial enlargement Left axis deviation Low voltage QRS Septal infarct (cited on or before 24-DEC-2022) Abnormal ECG When compared with ECG of 13-MAR-2023 12:16, Vent. rate has increased BY 33 BPM Questionable change in initial forces of Septal leads Referred By: Isi Cobb Electronically Signed By:VERNA TORRES MD
--- NOTE | ~2023-03-13 | CT_ITS ---
Examination: CTA chest. CT abdomen and pelvis with IV contrast. Clinical indication: Chest pain. COMPARISON: None. TECHNIQUE: 5 mm thin axial and reformatted 2 minutes thin coronal and sagittal followed by 8 mm oblique coronal images of chest were obtained following rapid IV 85 mL Omnipaque 350. Subsequently axial 5 minutes thin and reformatted 3 mm thin slice sagittal and coronal images of abdomen pelvis were obtained following contrast. DLP [address] examination was performed using dose optimization technique as appropriate, variously including the following: Automated exposure control Adjustment of MA and/or KV according to patient size(this includes techniques or standardized protocols for targeted exams where dose is matched to indication/reason for exam; extremities or head. Use of iterative reconstruction techniques. FINDINGS: CHEST: Mediastinum: there is good opacification of coronary artery and its branches without any intraluminal filling defect or narrowing. The thoracic aorta is of normal caliber. No aneurysm or dissection seen. The thoracic arch is normal branching. No abnormal size mediastinal mass or lymph nodes seen. Central trachea and the bronchi are widely patent.. LUNGS: Both lungs are fairly well-expanded and clear of acute pneumonic process. Mild thickening of left major fissure noted. No pulmonary nodule, mass or consolidation. PLEURA: Unremarkable. AXILLA: No abnormal axillary lymph nodes seen. The chest wall is unremarkable. OSSEOUS STRUCTURES: No aggressive lytic or sclerotic process seen. There is mild to moderate ventral spondylosis. ABDOMEN AND PELVIS: LIVER, DUCTS AND GALLBLADDER: The liver is normal size contour and density. No focal lesion or intrahepatic ductal dilatation. The gallbladder is unremarkable. PANCREAS: Unremarkable. SPLEEN: Unremarkable. ADRENAL GLANDS: Unremarkable. KIDNEYS: Both kidneys are normal size, shape and position. No radiopaque renal calculi or hydroureteronephrosis seen. LYMPHOVASCULAR STRUCTURES: Abdominal aorta is normal caliber. Small shotty retroperitoneal lymph nodes seen. GI TRACT: There is scattered stool and and gas seen in colon without distention. Few scattered colonic diverticuli are seen. The small bowel loops are normal. Caliber. No free air or free fluid seen. ABDOMINAL WALL: No evidence of hernia. PELVIS: No abnormal pelvic or inguinal lymph nodes seen. OSSEOUS STRUCTURES: MILD disc changes seen at L1-L2 and L2-L3 disc level with vacuum disc phenomena. There is ventral spondylosis throughout upper lumbar spine. No aggressive lytic or sclerotic process seen. CT/CT angio chest PE protocol IMPRESSION: No evidence of PE. No evidence of aortic dissection. Minimal thickening of left major fissure is noted. Mild constipation. Scattered colonic diverticuli without diverticulitis.
--- NOTE | ~2023-03-13 | CT_ITS ---
Examination: CT brain and CT cervical spine without contrast. CLINICAL INDICATION: Headache and neck pain. COMPARISON: None. TECHNIQUE: 5 mm thin axial and reformatted 2 mm thin sagittal and coronal images of brain were obtained. Subsequently axial 2 mm thin and reformatted 2 mm thin sagittal and coronal images of cervical spine were obtained. DLP 1621. This CT examination was performed using dose optimization technique as appropriate, variously including the following: Automated exposure control Adjustment of MA and/or KV according to patient size(this includes techniques or standardized protocols for targeted exams where dose is matched to indication/reason for exam; extremities or head. Use of iterative reconstruction techniques. FINDINGS: Brain: There is no acute intra-axial, extra-axial bleed, masses or midline shift. There is dystrophic bibasal ganglia calcifications. The lateral ventricles are symmetrical in size and configuration without and large. The christopher to white matter difference is maintained. There is no acute infarction in evolution. Bone windows reveal no calvarial abnormality no scalp soft tissue abnormality. Bilateral paranasal sinuses and mastoid air cells are well-aerated. Cervical spine: There is mild straightening of cervical lordosis. The vertebral heights and alignment is normal. There is loss of C5-C6, C6-C7 disc heights with mild ventral spondylosis C4-C5, C5-C6, C6-C7 and C7-T1 disc levels. No acute fracture or dislocation seen. The prevertebral and paravertebral soft tissues are normal. The lung apices are clear. CT/CT cervical spine wo IV con IMPRESSION: No acute intracranial process seen. The Mild straightening of cervical lordosis without visible acute fracture, dislocation or subluxation. There is degenerative disc changes and spondylosis as described above.
--- NOTE | 2023-03-13 11:28 | ECG_ITS ---
Test Reason : chest pain Blood Pressure : / mmHG Vent. Rate : 068 BPM Atrial Rate : 072 BPM P-R Int : 000 ms QRS Dur : 096 ms QT Int : 442 ms P-R-T Axes : 044 -64 000 degrees QTc Int : 469 ms Normal sinus rhythm Left axis deviation Incomplete right bundle branch block Septal infarct (cited on or before 24-DEC-2022) Abnormal ECG When compared with ECG of 16-FEB-2023 10:47, Premature ventricular complexes are no longer Present Referred By: Madelyn Tellez Electronically Signed By:VERNA TORRES MD
--- NOTE | 2023-03-13 11:38 | ED.GENADULT ---
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 is matched to indication/reason for exam;? extremities or head. Use of iterative reconstruction techniques. FINDINGS: Brain: There is no acute intra-axial, extra-axial bleed, masses or midline shift. There is dystrophic bibasal ganglia calcifications. The lateral ventricles are symmetrical in size and configuration without and large. The christopher to white matter difference is maintained. There is no acute infarction in evolution. Bone windows reveal no calvarial abnormality no scalp soft tissue abnormality. Bilateral paranasal sinuses and mastoid air cells are well-aerated. Cervical spine: There is mild straightening of cervical lordosis. The vertebral heights and alignment is normal. There is loss of C5-C6, C6-C7 disc heights with mild ventral spondylosis C4-C5, C5-C6, C6-C7 and C7-T1 disc levels. No acute fracture or dislocation seen. The prevertebral and paravertebral soft tissues are normal. The lung apices are clear. CT/CT cervical spine wo IV con IMPRESSION: No acute intracranial process seen. The ? Mild straightening of cervical lordosis without visible acute fracture, dislocation or subluxation. There is degenerative disc changes and spondylosis as described above. Dictated By: Swapnil Campos MD Examination: CTA chest. CT abdomen and pelvis with IV contrast. Clinical indication: Chest pain. COMPARISON: None. TECHNIQUE: 5 mm thin axial and reformatted 2 minutes thin coronal and sagittal followed by 8 mm oblique coronal images of chest were obtained following rapid IV 85 mL Omnipaque 350. Subsequently axial 5 minutes thin and reformatted 3 mm thin slice sagittal and coronal images of abdomen pelvis were obtained following contrast. DLP [address] examination was performed using dose optimization technique as appropriate, variously including the following: Automated exposure control Adjustment of MA and/or KV according to patient size(this includes techniques or standardized protocols for targeted exams where dose is matched to indication/reason for exam;? extremities or head. Use of iterative reconstruction techniques. FINDINGS: CHEST: Mediastinum: there is good opacification of coronary artery and its branches without any intraluminal filling defect or narrowing. The thoracic aorta is of normal caliber. No aneurysm or dissection seen. The thoracic arch is normal branching. No abnormal size mediastinal mass or lymph nodes seen. Central trachea and the bronchi are widely patent.. LUNGS: Both lungs are fairly well-expanded and clear of acute pneumonic process. Mild thickening of left major fissure noted. No pulmonary nodule, mass or consolidation. PLEURA: Unremarkable. AXILLA: No abnormal axillary lymph nodes seen. The chest wall is unremarkable. OSSEOUS STRUCTURES: No aggressive lytic or sclerotic process seen. There is mild to moderate ventral spondylosis. ABDOMEN AND PELVIS: LIVER, DUCTS AND GALLBLADDER: The liver is normal size contour and density. No focal lesion or intrahepatic ductal dilatation. The gallbladder is unremarkable. PANCREAS: Unremarkable. SPLEEN: Unremarkable. ADRENAL GLANDS: Unremarkable. KIDNEYS: Both kidneys are normal size, shape and position. No radiopaque renal calculi or hydroureteronephrosis seen. LYMPHOVASCULAR STRUCTURES: Abdominal aorta is normal caliber. Small shotty retroperitoneal lymph nodes seen. GI TRACT: There is scattered stool and and gas seen in colon without distention. Few scattered colonic diverticuli are seen. The small bowel loops are normal. Caliber. No free air or free fluid seen. ABDOMINAL WALL: No evidence of hernia. PELVIS: No abnormal pelvic or inguinal lymph nodes seen. OSSEOUS STRUCTURES: MILD disc changes seen at L1-L2 and L2-L3 disc level with vacuum disc phenomena. There is ventral spondylosis throughout upper lumbar spine. No aggressive lytic or sclerotic process seen. CT/CT abdomen pelvis w IV con IMPRESSION: No evidence of PE. ? No evidence of aortic dissection. Minimal thickening of left major fissure is noted. ? Mild constipation. Scattered colonic diverticuli without diverticulitis. Dictated By: Swapnil Campos MD Radiology Impression Discussion of test interpretation with radiology: I have reviewed the radiologist's reading. External Record Review External record reviewed: Inpatient record, Office record, Outpatient record, Prior outpatient labs, Prior outpatient radiology, Primary care record and Outside ED record Discharge Plan Discharge Clinical Impression: Hypoxia Patient Disposition: Admitted As Inpatient Interventions: Admission Worksheet (ED) Last Done: 03/14/23 04:33 Discharge Date/Time: 03/14/23 04:34
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
[2023-03-13 12:20] LABS: MANUAL DIFF FLAG NO
[2023-03-13 12:22] LABS: Basophils Absolute Auto 0.1 X10*3/uL (0.0-0.2); Basophils Percent Auto 1.6 % (0-2); Eosinophils Absolute Auto 0.1 X10*3/uL (0.0-0.4); Eosinophils Percent Auto 1.2 % (0-4); Hematocrit 46.5 % (42.0-52.0); Hemoglobin 15.1 g/dl (14.0-18.0); Imm Gran Abs Auto 0.01 X10*3/uL (0.00-0.03); Imm Gran Pct Auto 0.2 % (0.0-0.4); Lymphocytes Absolute Auto 1.6 X10*3/uL (1.2-4.9); Lymphocytes Percent Auto 28.5 % (20-40); Mean Corpuscular HGB Conc 32.5 g/dl (31.0-36.0); Mean Corpuscular Hemoglobin 30.2 pg (27.0-33.0); Mean Platelet Volume 9.8 fL (9.4-12.4); Monocytes Absolute Auto 0.4 X10*3/uL (0.1-1.2); Monocytes Percent Auto 7.7 % (2-11); Neutrophils Absolute Auto 3.4 x10*3/uL (2.0-8.3); Neutrophils Percent Auto 60.8 % (45-73); Platelet Count 319 X10*3/uL (160-400); Red Cell Distribution Width 13.4 % (11.0-16.0); White Blood Count 5.6 X10*3/uL (4.8-10.8)
[2023-03-13 12:32] LABS: INTERNATIONAL NORM RATIO 1.1 (0.9-1.1)
[2023-03-13 12:35] LABS: Partial Thromboplastin Time 34.6 SEC (26.0-36.4)
[2023-03-13] MEDS: 0.9 % Sodium Chloride 1,000 ML 999 ML IVCONT (12:42)
[2023-03-13] MEDS: ondansetron HCL 4 MG/2 ML VIAL IVPUSH (12:42)
[2023-03-13 12:47] LABS: Alanine Aminotransferase 35 U/L (0-40); Albumin Level 4.1 g/dL (3.5-5.0); Alkaline Phosphatase 75 U/L (39-117); Anion Gap 13 (12-20); Aspartate Amino Transferase 36 U/L (5-37); Bilirubin Direct 0.1 mg/dL (0.0-0.5); Bilirubin Total 0.4 mg/dL (0.0-1.0); Blood Urea Nitrogen 8 mg/dL (9-16); Calcium 8.4 mg/dL (8.4-10.2); Carbon Dioxide 32 mmol/L (22-29); Chloride 104 mmol/L (96-108); Creatinine Clr Calc Pharmacy 194.8; Estimated Glomerular Filt Rate > 60; Glucose Random 163 mg/dL (60-115); Lipase 13 U/L (8-78); Potassium 4.1 mmol/L (3.3-5.1); Sodium 145 mmol/L (135-145); Total Protein 7.8 g/dL (6.5-8.0)
[2023-03-13 12:49] LABS: Troponin-I High Sensitivity 16.9 ng/L (<3.5-35.0)
[2023-03-13 12:50] LABS: B Type Natriuretic Peptide 106 pg/mL (<100); Ethanol 163 mg/dL
[2023-03-13] MEDS: iohexoL 350 MG/ML 100 ML INFUS..BTL IV (14:25)
[2023-03-13] MEDS: Metoprolol Succinate ER 25 MG TAB.ER.24H PO (16:04)
[2023-03-13] MEDS: methylPREDNISolone Sod Succ 125 MG/2 ML VIAL IVPUSH (16:04)
[2023-03-13] MEDS: lisinopriL 10 MG TABLET PO (16:04)
[2023-03-13] MEDS: amLODIPine Besylate 5 MG TABLET PO (16:04)
[2023-03-13] MEDS: Ketorolac Tromethamine 30 MG/ML VIAL IVPUSH (16:05)
--- NOTE | 2023-03-13 17:04 | PHA.MEDREC ---
Pharmacy Consult ? Medication Reconciliation Pharmacy has completed the medication reconciliation. SPOKE WITH PT
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
[2023-03-13 18:00] LABS: Estimated Average Glucose 151 mg/dL; Hemoglobin A1c % 6.9 %
--- NOTE | 2023-03-13 18:10 | MHC.EDTECH ---
late note. per PA ambulated patient to monitor O2. fell between 88 and 90. PA aware
[2023-03-13] MEDS: Enoxaparin Sodium 40 MG/0.4 ML SYRINGE SUBCUT (18:45)
[2023-03-13] MEDS: Lidocaine 4 % Patch ADH..PATCH 1 PATCH TRANSDERMA (18:46)
[2023-03-13 19:30] LABS: Troponin-I High Sensitivity 15.9 ng/L (<3.5-35.0)
--- NOTE | 2023-03-13 19:34 | PC.NURSE ---
poc glucose check, diabetic meal provided per order set
--- NOTE | 2023-03-13 19:37 | PC.RT ---
Spoke with patient about nighttime CPAP use. Patient states he does use CPAP at home but declines a hospital unit. This therapist educated the patient on risks of TERRIE and benefits of CPAP use as well as risks of noncompliance with treatment. Patient states there is noone that can bring his home unit. Pt states he would like a recliner to sit up in at night. RN aware.
[2023-03-13 19:53] LABS: Glucose, Whole Blood 225 mg/dL (60-115)
[2023-03-13] MEDS: Metoprolol Tartrate 25 MG TABLET PO (22:53)
--- NOTE | 2023-03-13 23:05 | MHC.EDTECH ---
Rn made aware of high BP. will check vital again in 30 minutes
--- NOTE | 2023-03-14 | ECG_ITS ---
Test Reason : chest pain Blood Pressure : / mmHG Vent. Rate : 087 BPM Atrial Rate : 087 BPM P-R Int : 182 ms QRS Dur : 092 ms QT Int : 402 ms P-R-T Axes : 037 -65 014 degrees QTc Int : 483 ms Normal sinus rhythm Left axis deviation Incomplete right bundle branch block Anterior infarct (cited on or before 24-DEC-2022) Abnormal ECG When compared with ECG of 13-MAR-2023 21:03, No significant change was found Referred By: Milka Lackey Electronically Signed By:VERNA TORRES MD
--- NOTE | 2023-03-14 00:03 | PC.NURSE ---
handoff to precious stout
--- NOTE | 2023-03-14 01:17 | PC.NURSE ---
pt complaining of chest pain, Notified Dr. Lackey, Ekg placed and lawrence medicated per Jan.
[2023-03-14] MEDS: Acetaminophen 325 MG TABLET 650 MG PO (01:23)
[2023-03-14] MEDS: 0.9 % Sodium Chloride Flush 3 ML SYRINGE IVFLUSH ×2 (01:23→04:54)
--- NOTE | 2023-03-14 01:26 | PC.NURSE ---
medicated per Mar, provider aware of elevated blood pressure.
[2023-03-14 01:27] VITALS: BP 181/108; PULSE 82; RESP 20; O2SAT 93
--- NOTE | 2023-03-14 03:50 | PC.NURSE ---
Trigger, to Dr. Zhu for elevated blood pressure. A waiting orders.
--- NOTE | 2023-03-14 03:56 | PC.NURSE ---
pt sitting in chair watching TV, pt report relief from his chest pain, no sign of distress, Called or report, pt being transferred to Floor.
[2023-03-14 04:02] LABS: Appearance Urine Clear; Color Urine Yellow; Glucose Urine UA 500 mg/dL (Negative); Leukocyte Esterase Urine Negative (Negative); Nitrite Urine Negative (Negative); PH 5.5 (5.0-9.0); Specific Gravity - Urine >= 1.030 (1.005-1.025); UMIC TRIGGER UACC YES; Urine Blood Negative (Negative); Urine Ketones 15 mg/dL (Negative); Urine Protein 100 (2+) mg/dL (Neg-Trace)
[2023-03-14 04:07] LABS: Bacteria Urine None Seen (None Seen); Hyaline Casts Urine 0-2 /LPF (0-2); RBC Urine 0-2 /HPF (0-2); Squamous Epithelial Cell Urine 0-2 /HPF (0-2); WBC Urine 0-5 /HPF (0-5)
[2023-03-14] MEDS: hydrALAZINE HCl 20 MG/ML VIAL 5 MG IVPUSH (04:12)
--- NOTE | 2023-03-14 04:15 | PC.NURSE ---
pt medicated per Mar for elevated blood pressure
[2023-03-14] MEDS: Omeprazole 20 MG CAPSULE.DR PO (04:54)
[2023-03-14 05:43] VITALS: BP 160/78; PULSE 83; RESP 20; TEMP 36.8; O2SAT 95
[2023-03-14 06:36] LABS: Hematocrit 47.4 % (42.0-52.0); Hemoglobin 15.2 g/dl (14.0-18.0); Mean Corpuscular HGB Conc 32.1 g/dl (31.0-36.0); Mean Corpuscular Hemoglobin 29.1 pg (27.0-33.0); Mean Corpuscular Volume 90.6 fL (80.0-98.0); Mean Platelet Volume 10.6 fL (9.4-12.4); Platelet Count 334 X10*3/uL (160-400); Red Blood Count 5.23 X10*6/uL (4.60-5.80); Red Cell Distribution Width 13.4 % (11.0-16.0); White Blood Count 9.6 X10*3/uL (4.8-10.8)
[2023-03-14 07:28] LABS: Blood Urea Nitrogen 10 mg/dL (9-16); Calcium 8.9 mg/dL (8.4-10.2); Creatinine Clr Calc Pharmacy 205.4; Estimated Glomerular Filt Rate > 60; Glucose Random 152 mg/dL (60-115)
[2023-03-14 07:37] VITALS: BP 135/77; PULSE 79; RESP 20; TEMP 36.2; O2SAT 95
[2023-03-14 07:42] LABS: Anion Gap 18 (12-20); Carbon Dioxide 24 mmol/L (22-29); Chloride 102 mmol/L (96-108); Potassium 4.2 mmol/L (3.3-5.1); Sodium 140 mmol/L (135-145)
[2023-03-14 07:47] LABS: Glucose, Whole Blood 148 mg/dL (60-115)
[2023-03-14] MEDS: lisinopriL 10 MG TABLET PO (08:16)
[2023-03-14] MEDS: amLODIPine Besylate 5 MG TABLET PO (08:16)
[2023-03-14] MEDS: Metoprolol Tartrate 25 MG TABLET PO (08:16)
[2023-03-14] MEDS: Escitalopram Oxalate 20 MG TABLET PO (08:16)
[2023-03-14] MEDS: Lidocaine 4 % Patch ADH..PATCH 1 PATCH TRANSDERMA (08:17)
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
[2023-03-14 10:52] VITALS: BP 132/63; PULSE 80; RESP 20; TEMP 36.2; O2SAT 94
[2023-03-14 11:17] LABS: Glucose, Whole Blood 151 mg/dL (60-115)
[2023-03-14] MEDS: Insulin Lispro 100 UNIT/ML 3 ML VIAL SUBCUT (11:48)
[2023-03-14 11:58] VITALS: PULSE 109; PULSE 74; O2SAT 87; O2SAT 93
--- NOTE | 2023-03-14 12:13 | MHC.CM.PN ---
DP:PT HAS BEEN MEDICALLY CLEARED FOR [facility] HOME, NO SERVICES. RN AWARE. PT WILL TRANSP[facility] AT 1:30 PM
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
== END 2023-03-14 14:05 | disposition home or self-care (01) ==
LOC: HO.ED 16:56 → HO.EDOVER 17:24 → HO.IMC 03-14 02:47
PROVIDERS: Physician Assistant Medical; Admitting Provider Family Medicine; Emergency Provider Emergency Medicine; PCP Nurse Practitioner Family; Visit Provider Family Medicine
DX: R09.02 Hypoxemia (principal); R51.9 Headache, unspecified; M54.9 Dorsalgia, unspecified; M54.2 Cervicalgia; V43.52XA Car driver injured in collision with other type car in traffic accident, initial encounter; Y93.9 Activity, unspecified; Y92.410 Unspecified street and highway as the place of occurrence of the external cause; Y99.9 Unspecified external cause status; I10 Essential (primary) hypertension; E11.9 Type 2 diabetes mellitus without complications; E66.01 Morbid (severe) obesity due to excess calories; Z68.44 Body mass index [BMI] 60.0-69.9, adult; R10.13 Epigastric pain; R06.02 Shortness of breath; R60.9 Edema, unspecified; G47.33 Obstructive sleep apnea (adult) (pediatric)
CPT/HCPCS: 36415; 70450; 71275; 72125; 74177; 80048; 80076; 80307; 81001; 82550; 82947; 83036; 83690; 83735; 83880; 84484; 85025; 85027; 85610; 85730; 93005; 94640; 96361; 96372; 96374; 96375; 99222; 99285; J1650; J1885; J2405; J2930; Q9967

== ENCOUNTER 2023-03-17 14:14 | Inpatient (IN) | payer OTHER, SELFPAY ==
--- NOTE | 2023-03-17 14:20 | ED_ITS ---
HPI - General Adult General Chief complaint: Psychiatric Symptoms Stated complaint: si no plan per ems Time Seen by Provider: 03/17/23 14:20 Source: patient and EMS Mode of arrival: EMS Limitations: no limitations History of Present Illness HPI narrative: Patient is a 52 year old assigned male at with a history of MDD, COPD, HF, and TERRIE presenting to the emergency department today with suicidal ideation. Patient states that he wants to kill himself and has not been taking his medications. Patient denies any plan. Patient denies any dizziness, lightheadedness, abdominal pain, nausea, vomiting, fever, chills, blurry vision, double vision, loss of vision, chest pain, difficulty breathing, shortness of breath, back pain, night sweats, pain with urination, increased urinary frequency, increased urinary urgency, blood in his urine or stool, syncope or a near syncopal episode, recent trauma or falls, bowel incontinence, bladder incontinence, bowel retention, bladder retention, or any other complaints at this time. Severity: mild Relieving factors: none Exacerbating factors: none Associated symptoms: denies other symptoms Treatments prior to arrival: none Related Data Home Medications Medication Instructions Recorded Confirmed omeprazole 20 mg capsule,delayed 20 mg PO DAILY 03/13/23 03/17/23 release Previous Rx's Medication Instructions Recorded amlodipine 5 mg tablet 5 mg PO DAILY 30 days #30 tabs 02/17/23 escitalopram oxalate 10 mg tablet 20 mg PO DAILY 30 days #60 tabs 02/17/23 lisinopril 10 mg tablet 10 mg PO DAILY 30 days #30 tabs 02/17/23 metoprolol tartrate 25 mg tablet 25 mg PO BID 30 days #60 tabs 02/17/23 Allergies Allergy/AdvReac Type Severity Reaction Status Date / Time No Known Allergies Allergy Verified 03/13/23 10:59 Review of Systems Constitutional: Constitutional: Reports no additional constitutional co mplaints, Denies chills, Denies fever(s) and Denies night sweats Eyes: Eyes: Reports no additional eye complaints, Denies blurry vision, Denies change in vision, Denies diplopia, Denies eye discharge, Denies loss of vision and Denies eye pain ENT: Denies dizziness Cardiovascular: Cardiovascular: Reports no additional cardiovascular complaints, Denies chest pain, Denies lightheadedness, Denies Loss of Consciousness and Denies dyspnea Respiratory: Respiratory: Reports no additional respiratory complaints and Denies dyspnea Gastrointestinal: Gastrointestinal: Reports no additional gastrointestinal complaints, Denies abdominal pain, Denies melena, Denies hematochezia, Denies change in bowel habits and Denies change in stool character Genitourinary: Genitourinary: Reports no additional male genitourinary complaints, Denies hematuria, Denies oliguria, Denies difficulty urinating, Denies dysuria, Denies urinary frequency, Denies urinary hesitancy, Denies urinary incontinence and Denies urinary urgency Musculoskeletal: Musculoskeletal: Reports no additional musculoskeletal complaints, Denies numbness and Denies tingling Neurologic: Denies dizziness, Denies loss of vision, Denies numbness and Denies tingling Psychiatric: Psychiatric: Reports suicidal ideation Endocrine: Endocrine: Reports no additional endocrine complaints Hematologic/Lymphatic: Hematologic/Lymphatic: Reports no additional hematologic/lymphatic complaints Allergic/Immunologic: Allergic/Immunologic: Reports no additional allergic/immunologic complaints PMFSH Past Medical History Attestation statement: The following information was validated with the patient. Source: old records reviewed and nursing notes reviewed Medical History Acute gastritis with bleeding Alcohol use disorder, severe, dependence Anxiety Arthritis Depression Diabetes mellitus, type 2 Herniated disc Hypertension Morbid obesity Obesity TERRIE on CPAP PTSD (post-traumatic stress disorder) Sleep apnea Systolic heart failure Family History Family History Mother Diabetes Social History Social History Household Members: None Housing: Apartment Do you presently have visiting nurse or other home services: No Alcohol intake: current Alcohol intake frequency: holidays/special occasions only Alcohol type: wine Patient Tobacco Use Status: Never used Tobacco e-Cigarette/Vaping Use: Never Used Second Hand Smoke Exposure: No Advance Directives: No Advance Directives Information Provided: Yes service: Yes (3 years [employer]) Current occupational status: employed Sexual orientation: Straight/Heterosexual Physical Exam ED Vital Signs: Vital Signs - 24 hr 03/17/23 14:28 Temperature 98 F Pulse Rate 81 Respiratory Rate 18 Blood Pressure 188/110 H Pulse Oximetry 90 L Oxygen Delivery Method Room Air BMI result Body Mass Index 29.8 Const General: cooperative, no acute distress, alert and awake Nutritional Appearance: well nourished Orientation/consciousness: patient oriented x3 Limitations: no limitations HENMT Head: Yes normal to inspection and Yes atraumatic Ears: hearing grossly normal bilaterally and external ears normal General nose exam: Normal external nose present, no nasal discharge noted and no epistaxis Face and sinus: Yes normal facial exam, No abrasion and No laceration Mouth: Normal oral and palatal mucosa present, no drooling and no muffled voice Eyes General: appearance normal, both eyes and all related structures Periorbital: periorbital findings normal Eyelids: Yes eyelids normal Conjunctivae: conjunctivae normal Pupils: Equal, round and reactive pupils present EOM: EOMs intact bilaterally Neck Neck: Yes normal visual inspection, Yes full ROM and Yes no lymphadenopathy Chest Chest palpation & inspection: normal inspection of the chest Resp Effort & Inspection: normal respiratory effort and able to speak in complete sentences GI Inspection: Yes normal to inspection Neuro General: patient oriented x3 and moves all extremities Cranial nerves: Yes Equal, round and reactive pupils present Cognition (Neuro): normal cognition Motor exam (neuro): 5/5 motor strength present throughout Sensory Exam: Normal double simultaneous stimulation for sensation Coordination: [id number] test normal Extrem General: Yes normal to inspection, Yes full ROM and Yes capillary refill normal Psych Appearance: grossly normal Mental Status: mental status grossly normal Affect: normal affect Attitude: cooperative Thought process: Normal thought process present Thought content: Normal thought content present Insight: Good insight present (Psych) Medications Administered Discontinued Medications Generic Name Dose Route Start Last Admin Trade Name Freq PRN Reason Stop Dose Admin Lisinopril 10 mg 03/17/23 14:42 03/17/23 14:52 Lisinopril 10 Mg Tablet PO 03/17/23 14:43 10 mg ONCE ONE Administration Protocol Metoprolol Tartrate 25 mg 03/17/23 14:42 03/17/23 14:52 Metoprolol Tartrate 25 Mg Tablet PO 03/17/23 14:43 25 mg ONCE ONE Administration Protocol Medical Decision Making Medical Decision Making [facility] Narrative: Patient is a 52 year old assigned male at with a history of HF, depression, and MDD presenting to the emergency department today with suicidal ideaiton. Patient's physical exam showed mild hypoxia and hypertension however, this is chronic for the patient. Patient's blood work is pending. Patient is awaiting labs and CARE team evaluation. Differential Diagnosis Differential Diagnoses: The differential diagnosis associated with the presentation includes suicidal ideation, COPD, depression Lab Data MDM Lab Attestation statement: I reviewed the patient's lab results. Labs: Lab Results 03/17/23 03/17/23 03/17/23 Range/Units 14:50 14:50 14:50 Urine Color Yellow Urine Appearance Clear Urine pH 6.5 (5.0-9.0) Ur Specific [place] 1.025 (1.005-1.025) Urine Protein 30 (1+) H (Neg-Trace) mg/dL Urine Glucose (UA) Negative (Negative) mg/dL Urine Ketones Negative (Negative) mg/dL Urine Blood Negative (Negative) Urine Nitrite Negative (Negative) Ur Leukocyte Esterase Negative (Negative) Urine RBC 0-2 (0-2) /HPF Urine WBC 0-5 (0-5) /HPF Ur Squamous Epith Cells 0-2 (0-2) /HPF Urine Bacteria None Seen (None Seen) Hyaline Casts 0-2 (0-2) /LPF Urine Opiates Screen Not Detected (Not Detect) Urine Fentanyl Screen Not Detected (Not Detect) Ur Barbiturates Screen POSITIVE H (Not Detect) Ur Phencyclidine Scrn Not Detected (Not Detect) Ur Amphetamines Screen Not Detected (Not Detect) U Benzodiazepines Scrn Not Detected (Not Detect) Urine Cocaine Screen Not Detected (Not Detect) U Marijuana (THC) Screen Not Detected (Not Detect) COVID-19 (DIDIER) Negative (Negative) COVID-19 Clin Com See Note Discharge Plan Discharge Clinical Impression: Depression Patient Disposition: Still a Patient Prescriptions: No Action omeprazole 20 mg capsule,delayed release(DR/EC) 20 mg PO DAILY amlodipine 5 mg Tablet 5 mg PO DAILY 30 Days Qty: 30 0RF Protocol: Hold for SBP< HOLD for SBP < : 90 lisinopril 10 mg Tablet 10 mg PO DAILY 30 Days Qty: 30 0RF Protocol: Hold for SBP< HOLD for SBP < : 90 metoprolol tartrate 25 mg Tablet 25 mg PO BID 30 Days Qty: 60 0RF Protocol: Hold for SBP/HR < HOLD for SBP < : 90 HOLD for HR < : 60 escitalopram oxalate 10 mg tablet 20 mg PO DAILY 30 Days Qty: 60 0RF
[2023-03-17 14:28] VITALS: BP 156/100; BP 188/110; PULSE 81; RESP 18; TEMP 36.6; O2SAT 90; BMI 29.8
[2023-03-17] MEDS: Metoprolol Tartrate 25 MG TABLET PO ×2 (14:52→20:15)
[2023-03-17] MEDS: lisinopriL 10 MG TABLET PO (14:52)
[2023-03-17 15:00] LABS: Appearance Urine Clear; Color Urine Yellow; Glucose Urine UA Negative (Negative); Leukocyte Esterase Urine Negative (Negative); Nitrite Urine Negative (Negative); PH 6.5 (5.0-9.0); Specific Gravity - Urine 1.025 (1.005-1.025); UMIC TRIGGER UA YES; Urine Blood Negative (Negative); Urine Ketones Negative (Negative); Urine Protein 30 (1+) mg/dL (Neg-Trace)
[2023-03-17 15:12] LABS: COVID-19 Test Negative (Negative); IDNOW Serial# 08D9AD1C
[2023-03-17 15:27] LABS: Bacteria Urine None Seen (None Seen); Hyaline Casts Urine 0-2 /LPF (0-2); RBC Urine 0-2 /HPF (0-2); Squamous Epithelial Cell Urine 0-2 /HPF (0-2); WBC Urine 0-5 /HPF (0-5)
[2023-03-17 15:32] LABS: Amphetamine Screen Urine Not Detected (Not Detect); Barbiturates, Urine POSITIVE (Not Detect); Benzodiazepines Screen Urine Not Detected (Not Detect); Cannabinoid Screen Urine Not Detected (Not Detect); Cocaine Screen Urine Not Detected (Not Detect); Fentanyl, urine Not Detected (Not Detect); Opiate Screen Urine Not Detected (Not Detect); Phencyclidine Screen Urine Not Detected (Not Detect)
[2023-03-17 16:00] VITALS: BP 168/112; PULSE 73; RESP 16; TEMP 36.3; O2SAT 90
[2023-03-17 16:44] LABS: MANUAL DIFF FLAG NO
[2023-03-17 16:48] LABS: Basophils Absolute Auto 0.1 X10*3/uL (0.0-0.2); Eosinophils Absolute Auto 0.1 X10*3/uL (0.0-0.4); Eosinophils Percent Auto 1.8 % (0-4); Hematocrit 45.3 % (42.0-52.0); Hemoglobin 14.9 g/dl (14.0-18.0); Imm Gran Abs Auto 0.05 X10*3/uL (0.00-0.03); Imm Gran Pct Auto 0.6 % (0.0-0.4); Lymphocytes Absolute Auto 1.4 X10*3/uL (1.2-4.9); Lymphocytes Percent Auto 18.1 % (20-40); Mean Corpuscular HGB Conc 32.9 g/dl (31.0-36.0); Mean Corpuscular Hemoglobin 29.9 pg (27.0-33.0); Mean Corpuscular Volume 90.8 fL (80.0-98.0); Mean Platelet Volume 10.3 fL (9.4-12.4); Monocytes Absolute Auto 0.5 X10*3/uL (0.1-1.2); Monocytes Percent Auto 6.5 % (2-11); Neutrophils Absolute Auto 5.7 x10*3/uL (2.0-8.3); Platelet Count 240 X10*3/uL (160-400); Red Blood Count 4.99 X10*6/uL (4.60-5.80); Red Cell Distribution Width 13.6 % (11.0-16.0)
[2023-03-17 17:20] LABS: Acetaminophen LAB < 17 mcg/mL (<30); Alanine Aminotransferase 32 U/L (0-40); Albumin Level 3.8 g/dL (3.5-5.0); Alkaline Phosphatase 68 U/L (39-117); Anion Gap 16 (12-20); Aspartate Amino Transferase 32 U/L (5-37); Bilirubin Total 0.4 mg/dL (0.0-1.0); Blood Urea Nitrogen 11 mg/dL (9-16); Calcium 8.3 mg/dL (8.4-10.2); Carbon Dioxide 30 mmol/L (22-29); Chloride 103 mmol/L (96-108); Creatinine Clr Calc Pharmacy 156.6; Estimated Glomerular Filt Rate > 60; Ethanol 127 mg/dL; Glucose Random 145 mg/dL (60-115); Potassium 3.8 mmol/L (3.3-5.1); Salicylate < 5.0 mg/dL (15-30); Sodium 145 mmol/L (135-145)
[2023-03-17] MEDS: Ondansetron ODT 4 MG TAB.RAPDIS TRANSLINGU (17:36)
[2023-03-17] MEDS: LORazepam 1 MG TABLET 2 MG PO (20:15)
[2023-03-17 20:18] VITALS: BP 187/91; PULSE 85; RESP 22; TEMP 37.5; O2SAT 90
[2023-03-17 23:35] VITALS: BP 184/87; PULSE 91; RESP 20; TEMP 36.7; O2SAT 90
--- NOTE | 2023-03-18 00:48 | PC.ADMIT ---
Pt is a 52 y/o Maori speaking single male who resides in a [address] in [place], [place]. Pt is known to the CARE Team and his last assessment was on 02/15/23. Today, pt was talking with a sober student success coach at the [place] and that person called EMS and had the pt brought into [facility] ED [facility] for SI with a plan, intent, and means of driving his car into ?something?. Pt was medically cleared and was referred to the CARE Team to make an appropriate treatment recommendation. Pt stated that for the past few days he has not been med compliant and that he wants to end his life by driving into ?something?. Pt stated that he is scared that if he was home alone right now that he would hurt someone else while trying to end his life by driving into something. Pt is a self proclaimed alcoholic and stated that he wakes up, has two pints of vodka and two 4Loco?s, passes out, then wakes up and repeats. Pt stated that he has been in several programs since 2019, was sober for three years then relapsed. Pt has some other medical conditions as well and he stated that due to all of this he wants to end his life.?Patient was cooperative with admission process. Currently reports suicidal thoughts but no active plan in the hospital. Patient utilizing a walker and a BiPap machine at night. Anxiety 04/22 Depression 07/23. Patient reports no AH/VH.
[2023-03-18 00:58] VITALS: PULSE 90; RESP 20; O2SAT 92
[2023-03-18] MEDS: LORazepam 1 MG TABLET PO ×2 (04:04→08:42)
[2023-03-18] MEDS: Escitalopram Oxalate 20 MG TABLET PO (08:41)
[2023-03-18] MEDS: Metoprolol Tartrate 25 MG TABLET PO ×2 (08:41→21:05)
[2023-03-18] MEDS: amLODIPine Besylate 5 MG TABLET PO (08:41)
[2023-03-18] MEDS: Omeprazole 20 MG CAPSULE.DR PO (08:41)
[2023-03-18] MEDS: lisinopriL 10 MG TABLET PO (08:41)
[2023-03-18 09:10] VITALS: BP 189/94; PULSE 94; RESP 18; TEMP 36.8; O2SAT 93
[2023-03-18] MEDS: Loperamide HCl 2 MG CAPSULE 4 MG PO ×2 (13:31→22:54)
[2023-03-18] MEDS: Albuterol Sulfate 90 MCG 8 GM INHALER 1 PUFF INHALE (13:31)
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
[2023-03-18 19:45] VITALS: BP 146/82; PULSE 88; RESP 16; TEMP 36.5; O2SAT 98
[2023-03-18] MEDS: traZODone HCL 50 MG TABLET PO (22:53)
[2023-03-18] MEDS: hydrOXYzine HCL 25 MG TABLET PO (22:54)
--- NOTE | 2023-03-18 23:32 | PC.RT ---
Pt refused BIPAP, does not like hospital machine, not a problem with mask but with the flow and air
--- NOTE | 2023-03-19 00:37 | PC.NURSE ---
Miguel Ángel is admitted to [facility] for safety, observation, medication reconciliation and stabilization, diagnosis MDD, presented to ER with SI. This evening he was visible in the milieu, watching BB game with peers and playing [employer]. 1:1 engagement receptive, good eye contact, reported loose stools and prn requested, adherent with prescribed meds, denies SI/AVH, requested a 3 day to sign which will be up for resolution on the , declined to use provide CPAP machine, stated he doesn't like it. No behavior issues. POC as outlined, 15 min unit safety observation.
[2023-03-19] MEDS: Omeprazole 20 MG CAPSULE.DR PO (06:03)
[2023-03-19 08:35] LABS: Glucose, Whole Blood 126 mg/dL (60-115)
[2023-03-19] MEDS: Escitalopram Oxalate 20 MG TABLET PO (09:27)
[2023-03-19] MEDS: Metoprolol Tartrate 25 MG TABLET PO ×2 (09:27→21:38)
[2023-03-19] MEDS: lisinopriL 10 MG TABLET PO (09:27)
[2023-03-19] MEDS: amLODIPine Besylate 5 MG TABLET PO (09:28)
[2023-03-19 09:35] VITALS: BP 154/68; PULSE 97; RESP 18; TEMP 36.7; O2SAT 93
--- NOTE | 2023-03-19 12:44 | HO.PSYCHPN ---
Subjective Subjective Date of Service: 03/19/23 Reason For Visit: SI Subjective Notes: Lopez Warning and 3 Day Medical Problems Affecting Mental Status: No Interim History: Reports doing ok today and resting more. Mood slightly better. No SI, HI, psychosis. No withdrawals. Put in 3 day notice. Medication Compliance: Yes Side effects from medications: No Attending Groups: No Review of Systems Acute medical concerns: No Review of Systems Review of Systems Yes all other systems are reviewed and are negative Mental Status Exam Mental Status Exam Narrative: Utilizes walker Patient Appearance: Malodorous Patient Orientation: Person, Place, Time and Situation Level of Consciousness: Awake and Appropriate Patient Behavior: Appropriate Mood Description: Calm and Depressed Affect Description: Apathetic Patient Cognition Impaired: No Ability to Follow Directions: Good Speech Pattern: Clear Memory Description: Intact Hallucinations: None Delusions: Not Present Thought Process: Intact Thought Content: positive for Intact Depressive Symptoms: Sleeping More Than Usual and Unhappiness Judgement: Fair Diagnostics Vital Signs (24Hr): Vital Signs - 24 hr 03/18/23 19:45 03/19/23 09:35 Temperature 97.7 F 98.0 F Pulse Rate 88 97 Respiratory Rate 16 18 Blood Pressure 146/82 H 154/68 H Pulse Oximetry 98 93 Oxygen Delivery Method Room Air Room Air BMI result Body Mass Index 29.8 Labs 03/17/23 16:39 03/17/23 16:39 Labs: Laboratory Results - last 48 hr 03/17/23 03/17/23 03/17/23 14:50 14:50 14:50 WBC RBC Hgb Hct MCV MCH MCHC RDW Plt Count MPV Immature Gran % (Auto) Neut % (Auto) Lymph % (Auto) [place] % (Auto) Eos % (Auto) Baso % (Auto) Lymph # (Auto) [place] # (Auto) Eos # (Auto) Baso # (Auto) Abs Immat Gran (auto) Absolute Neuts (auto) Absolute Nucleated RBC Nucleated RBC % (auto) Sodium Potassium Chloride Carbon Dioxide Anion Gap BUN Creatinine Estim Creat Clear Calc Estimated GFR POC Glucose Random Glucose Calcium Total Bilirubin AST ALT Alkaline Phosphatase Total Protein Albumin Urine Color Yellow Urine Appearance Clear Urine pH 6.5 Ur Specific [place] 1.025 Urine Protein 30 (1+) H Urine Glucose (UA) Negative Urine Ketones Negative Urine Blood Negative Urine Nitrite Negative Ur Leukocyte Esterase Negative Urine RBC 0-2 Urine WBC 0-5 Ur Squamous Epith Cells 0-2 Urine Bacteria None Seen Hyaline Casts 0-2 Salicylates Urine Opiates Screen Not Detected Urine Fentanyl Screen Not Detected Acetaminophen Ur Barbiturates Screen POSITIVE H Ur Phencyclidine Scrn Not Detected Ur Amphetamines Screen Not Detected U Benzodiazepines Scrn Not Detected Urine Cocaine Screen Not Detected U Marijuana (THC) Screen Not Detected Ethyl Alcohol COVID-19 (DIDIER) Negative COVID-19 Clin Com See Note 03/17/23 03/17/23 03/19/23 16:39 16:39 08:29 WBC 8.0 RBC 4.99 Hgb 14.9 Hct 45.3 MCV 90.8 MCH 29.9 MCHC 32.9 RDW 13.6 Plt Count 240 D MPV 10.3 Immature Gran % (Auto) 0.6 H Neut % (Auto) 72.0 Lymph % (Auto) 18.1 L [place] % (Auto) 6.5 Eos % (Auto) 1.8 Baso % (Auto) 1.0 Lymph # (Auto) 1.4 [place] # (Auto) 0.5 Eos # (Auto) 0.1 Baso # (Auto) 0.1 Abs Immat Gran (auto) 0.05 H Absolute Neuts (auto) 5.7 Absolute Nucleated RBC 0.000 Nucleated RBC % (auto) 0.0 Sodium 145 Potassium 3.8 Chloride 103 Carbon Dioxide 30 H Anion Gap 16 BUN 11 Creatinine 0.69 Estim Creat Clear Calc 156.6 Estimated GFR > 60 POC Glucose 126 H Random Glucose 145 H Calcium 8.3 L D Total Bilirubin 0.4 AST 32 ALT 32 Alkaline Phosphatase 68 Total Protein 7.0 Albumin 3.8 Urine Color Urine Appearance Urine pH Ur Specific [place] Urine Protein Urine Glucose (UA) Urine Ketones Urine Blood Urine Nitrite Ur Leukocyte Esterase Urine RBC Urine WBC Ur Squamous Epith Cells Urine Bacteria Hyaline Casts Salicylates < 5.0 L Urine Opiates Screen Urine Fentanyl Screen Acetaminophen < 17 Ur Barbiturates Screen Ur Phencyclidine Scrn Ur Amphetamines Screen U Benzodiazepines Scrn Urine Cocaine Screen U Marijuana (THC) Screen Ethyl Alcohol 127 COVID-19 (DIDIER) COVID-19 Clin Com Medications Medications Current Medications Acetaminophen (Acetaminophen 325 Mg Tablet) 650 mg PO Q6H PRN PRN Reason: Headache/Pain Mild Scale (1-3) Al Hydroxide/Mg Hydroxide (Magnesium Hydrox/Alum Hydrox 30 Ml Oral.Susp) 30 ml PO Q6H PRN PRN Reason: Heartburn/Nausea Albuterol Sulfate (Albuterol Sulfate 90 Mcg 8 Gm Inhaler) 1 puff INHALE RQ4H PRN PRN Reason: Shortness of Breath Last Admin: 03/18/23 13:31 Dose: 1 puff Amlodipine Besylate (Amlodipine Besylate 5 Mg Tablet) 5 mg PO DAILY [facility]; Protocol Last Admin: 03/19/23 09:28 Dose: 5 mg Escitalopram Oxalate (Escitalopram Oxalate 20 Mg Tablet) 20 mg PO DAILY [facility] Last Admin: 03/19/23 09:27 Dose: 20 mg Hydroxyzine HCl (Hydroxyzine Hcl 25 Mg Tablet) 25 mg PO Q6H PRN PRN Reason: Anxiety Last Admin: 03/18/23 22:54 Dose: 25 mg Lisinopril (Lisinopril 10 Mg Tablet) 10 mg PO DAILY [facility]; Protocol Last Admin: 03/19/23 09:27 Dose: 10 mg Loperamide HCl (Loperamide Hcl 2 Mg Capsule) 4 mg PO Q4H PRN PRN Reason: Diarrhea Last Admin: 03/18/23 22:54 Dose: 4 mg Magnesium Hydroxide (Milk Of Magnesia 30 Ml Oral.Susp) 30 ml PO DAILY PRN PRN Reason: Constipation Metoprolol Tartrate (Metoprolol Tartrate 25 Mg Tablet) 25 mg PO BID [facility]; Protocol Last Admin: 03/19/23 09:27 Dose: 25 mg Nicotine (Nicotine 21 Mg Patch.Td24) 21 mg TRANSDERMA DAILY PRN PRN Reason: smoking cessation Nicotine Polacrilex (Nicotine Polacrilex 2 Mg Gum) 4 mg BUCCAL Q2H PRN PRN Reason: Nicotine Cravings Omeprazole (Omeprazole 20 Mg Capsule.Dr) 20 mg PO DAILY@0630 [facility] Last Admin: 03/19/23 06:03 Dose: 20 mg Trazodone HCl (Trazodone Hcl 50 Mg Tablet) 50 mg PO BEDTIME MRX1 PRN PRN Reason: Insomnia Last Admin: 03/18/23 22:53 Dose: 50 mg Allergies Allergies Allergy/AdvReac Type Severity Reaction Status Date / Time No Known Allergies Allergy Verified 03/13/23 10:59 Assessment & Plan Assessment & Plan (1) MDD (major depressive disorder), recurrent episode, moderate: Status: Acute Code(s): F33.1 - Major depressive disorder, recurrent, moderate (2) Alcohol use disorder, severe, dependence: Status: Acute Code(s): F10.20 - Alcohol dependence, uncomplicated Plan Presents with alcohol dependency recent relapse and co morbid MDD with exacerbation of symptoms and med non adherence. Self presented for help and supported in getting to ED. Will restart lexapro and CIWA. Does not appear to have current interest in rehab. Can liaise with community supports as pt permits around dis[facility] planning and [facility] 03/19: submitted 3 day notice Reason for continued inpatient stay Substantial Risk for: harm to self Time Spent With Patient Time: Total time managing care of this patient today ____ minutes.
[2023-03-19 21:30] VITALS: BP 149/72; PULSE 94; RESP 18; TEMP 36.7; O2SAT 96
[2023-03-19] MEDS: hydrOXYzine HCL 25 MG TABLET PO (21:38)
[2023-03-19] MEDS: traZODone HCL 50 MG TABLET PO (21:38)
[2023-03-20 09:29] LABS: Glucose, Whole Blood 128 mg/dL (60-115)
[2023-03-20 09:31] VITALS: BP 139/82; PULSE 82; RESP 18; TEMP 36.5; O2SAT 91
[2023-03-20] MEDS: amLODIPine Besylate 5 MG TABLET PO (09:33)
[2023-03-20] MEDS: lisinopriL 10 MG TABLET PO (09:33)
[2023-03-20] MEDS: Metoprolol Tartrate 25 MG TABLET PO ×2 (09:33→22:28)
[2023-03-20] MEDS: Escitalopram Oxalate 20 MG TABLET PO (09:33)
[2023-03-20] MEDS: Omeprazole 20 MG CAPSULE.DR PO (09:34)
--- NOTE | 2023-03-20 11:48 | P.PNPSI_ITS ---
Subjective Subjective Date of Service: 03/20/23 Reason For Visit: SI Interim History: calm, cooperative. holding court at a table in the milieu, playing cards. denies LOPEZ, sweats, tremors, n/v/d, TH. declines referral to rehab. interested in power and recovery superintendent and therapy/psychiatry. discussed R/B of naltrexone, including treatment of acute severe pain and liver damage. pt amenable to start naltrexone today. interested in DC tomorrow. seen with LUDY farias. per staff, 3-day up 03/22. CPAP, satting in low 90s. showered, friendly. attended art group. Mental Status Exam Mental Status Exam Narrative: Utilizes walker Patient Appearance: Malodorous Patient Orientation: Person, Place, Time and Situation Level of Consciousness: Awake and Appropriate Patient Behavior: Appropriate Mood Description: Calm and Appropriate ( OK ) Affect Description: Appropriate and Relaxed Patient Cognition Impaired: No Ability to Follow Directions: Good Speech Pattern: Clear Memory Description: Intact Hallucinations: None Delusions: Not Present Thought Process: Intact Thought Content: positive for Intact Judgement: Fair Diagnostics Vital Signs (24Hr): Vital Signs - 24 hr 03/19/23 21:30 03/20/23 09:31 Temperature 98.0 F 97.7 F Pulse Rate 94 82 Respiratory Rate 18 18 Blood Pressure 149/72 H 139/82 Pulse Oximetry 96 91 L Oxygen Delivery Method Room Air Room Air BMI result Body Mass Index 29.8 Labs 03/17/23 16:39 03/17/23 16:39 Labs: Laboratory Results - last 48 hr 03/19/23 03/20/23 08:29 09:25 POC Glucose 126 H 128 H Medications Medications Current Medications Acetaminophen (Acetaminophen 325 Mg Tablet) 650 mg PO Q6H PRN PRN Reason: Headache/Pain Mild Scale (1-3) Al Hydroxide/Mg Hydroxide (Magnesium Hydrox/Alum Hydrox 30 Ml Oral.Susp) 30 ml PO Q6H PRN PRN Reason: Heartburn/Nausea Albuterol Sulfate (Albuterol Sulfate 90 Mcg 8 Gm Inhaler) 1 puff INHALE RQ4H PRN PRN Reason: Shortness of Breath Last Admin: 03/18/23 13:31 Dose: 1 puff Amlodipine Besylate (Amlodipine Besylate 5 Mg Tablet) 5 mg PO DAILY [facility]; Protocol Last Admin: 03/20/23 09:33 Dose: 5 mg Escitalopram Oxalate (Escitalopram Oxalate 20 Mg Tablet) 20 mg PO DAILY [facility] Last Admin: 03/20/23 09:33 Dose: 20 mg Hydroxyzine HCl (Hydroxyzine Hcl 25 Mg Tablet) 25 mg PO Q6H PRN PRN Reason: Anxiety Last Admin: 03/19/23 21:38 Dose: 25 mg Lisinopril (Lisinopril 10 Mg Tablet) 10 mg PO DAILY [facility]; Protocol Last Admin: 03/20/23 09:33 Dose: 10 mg Loperamide HCl (Loperamide Hcl 2 Mg Capsule) 4 mg PO Q4H PRN PRN Reason: Diarrhea Last Admin: 03/18/23 22:54 Dose: 4 mg Magnesium Hydroxide (Milk Of Magnesia 30 Ml Oral.Susp) 30 ml PO DAILY PRN PRN Reason: Constipation Metoprolol Tartrate (Metoprolol Tartrate 25 Mg Tablet) 25 mg PO BID [facility]; Protocol Last Admin: 03/20/23 09:33 Dose: 25 mg Naltrexone HCl (Naltrexone Hcl 50 Mg Tablet) 50 mg PO DAILY [facility] Nicotine (Nicotine 21 Mg Patch.Td24) 21 mg TRANSDERMA DAILY PRN PRN Reason: smoking cessation Nicotine Polacrilex (Nicotine Polacrilex 2 Mg Gum) 4 mg BUCCAL Q2H PRN PRN Reason: Nicotine Cravings Omeprazole (Omeprazole 20 Mg Capsule.Dr) 20 mg PO DAILY@0630 [facility] Last Admin: 03/20/23 09:34 Dose: 20 mg Trazodone HCl (Trazodone Hcl 50 Mg Tablet) 50 mg PO BEDTIME MRX1 PRN PRN Reason: Insomnia Last Admin: 03/19/23 21:38 Dose: 50 mg Allergies Allergies Allergy/AdvReac Type Severity Reaction Status Date / Time No Known Allergies Allergy Verified 03/13/23 10:59 Assessment & Plan Assessment & Plan (1) MDD (major depressive disorder), recurrent episode, moderate: Status: Acute Code(s): F33.1 - Major depressive disorder, recurrent, moderate (2) Alcohol use disorder, severe, dependence: Status: Acute Code(s): F10.20 - Alcohol dependence, uncomplicated Plan Presents with alcohol dependency recent relapse and co morbid MDD with exacerbation of symptoms and med non adherence. Self presented for help and supported in getting to ED. Will restart lexapro and CIWA. Does not appear to have current interest in rehab. Can liaise with community supports as pt permits around dis[facility] planning and supports [facility] 03/19: submitted 3 day notice 03/20: not on CIWA, no ativan PRNs. denies EtOH w/drawal Sx. agreeable to start naltrexone. plannig to discharge tomorrow. Reason for continued inpatient stay Substantial Risk for: stable for discharge Time Spent With Patient Time: Total time managing care of this patient today ____ minutes.
[2023-03-20] MEDS: Naltrexone HCl 50 MG TABLET PO (12:01)
[2023-03-20 22:26] VITALS: BP 136/83; PULSE 112; RESP 20; TEMP 36.6; O2SAT 93
[2023-03-20] MEDS: hydrOXYzine HCL 25 MG TABLET PO (22:28)
[2023-03-20] MEDS: traZODone HCL 50 MG TABLET PO (22:28)
[2023-03-21 09:30] VITALS: BP 140/96; PULSE 110; TEMP 36.5; O2SAT 92
[2023-03-21] MEDS: Metoprolol Tartrate 25 MG TABLET PO (09:36)
[2023-03-21] MEDS: Naltrexone HCl 50 MG TABLET PO (09:36)
[2023-03-21] MEDS: amLODIPine Besylate 5 MG TABLET PO (09:36)
[2023-03-21] MEDS: Omeprazole 20 MG CAPSULE.DR PO (09:37)
[2023-03-21] MEDS: lisinopriL 10 MG TABLET PO (09:37)
[2023-03-21] MEDS: Escitalopram Oxalate 20 MG TABLET PO (09:37)
[2023-03-21 09:42] LABS: Glucose, Whole Blood 152 mg/dL (60-115)
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
== END 2023-03-21 11:10 | disposition home or self-care (01) | DRG 885 ==
LOC: HO.ED 15:10 → HO.PADLT16 23:25
PROVIDERS: Physician Assistant Medical; Admitting Provider Psychiatry & Neurology Psychiatry; Emergency Provider Emergency Medicine; PCP Nurse Practitioner Family; Visit Provider Psychiatry & Neurology Psychiatry
DX: F33.1 Major depressive disorder, recurrent, moderate (principal); R45.851 Suicidal ideations; F10.20 Alcohol dependence, uncomplicated; Y90.6 Blood alcohol level of 120-199 mg/100 ml; F10.229 Alcohol dependence with intoxication, unspecified; Z20.822 Contact with and (suspected) exposure to COVID-19; Z79.899 Other long term (current) drug therapy
CPT/HCPCS: 36415; 80053; 80143; 80179; 80307; 81001; 81003; 82947; 85025; 87635; 94660; 99285; S9485

== ENCOUNTER 2023-05-13 01:15 | Inpatient (IN) | payer OTHER, MEDICARE, MEDICAID, SELFPAY ==
--- NOTE | 2023-05-13 01:39 | ED.PSYCH ---
HPI - Psych General Stated Complaint: OD SI Time Seen by Provider: 05/13/23 01:37 Source: patient Mode of arrival: EMS Limitations: no limitations History of Present Illness HPI Narrative: Patient comes to the emergency room via ambulance after a suicide attempt by trying to overdose with alcohol and benzodiazepines. Patient states that he drank an unknown amount of alcohol, and took a handful of Ativan pills. Patient states that shortly after he vomited. Patient denies any symptoms at this time. Patient complaining of SI, no HI. Related Data Previous Rx's Medication Instructions Recorded albuterol sulfate 90 mcg/actuation 1 puff inhalation RQ4H PRN 03/21/23 aerosol inhaler (Ventolin HFA) Shortness Of Breath 30 days #1 inhaler amlodipine 5 mg tablet 5 mg PO DAILY 30 days #30 tabs 03/21/23 escitalopram oxalate 20 mg tablet 20 mg PO DAILY 30 days #30 tabs 03/21/23 lisinopril 10 mg tablet 10 mg PO DAILY 30 days #30 tabs 03/21/23 metoprolol tartrate 25 mg tablet 25 mg PO BID 30 days #60 tabs 03/21/23 naltrexone 50 mg tablet 50 mg PO DAILY 30 days #30 tabs 03/21/23 omeprazole 20 mg capsule,delayed 20 mg PO DAILY@0630 30 days #30 03/21/23 release caps trazodone 50 mg tablet 50 mg PO BEDTIME 30 days #30 tabs 03/21/23 Allergies Allergy/AdvReac Type Severity Reaction Status Date / Time No Known Allergies Allergy Verified 03/13/23 10:59 Review of Systems Review of Systems: Constitutional : No Weight loss, No Fever, No Chills, No Night Sweats, No Fatigue, No Malaise ENT/Mouth : No Hearing loss, No Ear Pain, No Nasal Congestion, No Sinus Pain, No Hoarseness, No sore throat, No Rhinorrhea, No Swallowing Difficulty Eyes: No Eye Pain, No Swelling, No Redness, No Foreign Body, No Discharge, No Vision Changes Cardiovascular : No Chest Pain, No SOB, No Dyspnea on Exertion, No Orthopnea, No Edema, No Palpitations Respiratory : No Cough, No Sputum, No Wheezing, No Smoke Exposure, No Dyspnea Gastrointestinal : No Nausea, No Vomiting, No Diarrhea, No Constipation, No abdominal Pain, No Hematochezia, No Melena Genitourinary : no irregular bleeding, No Dysuria, No Urinary Frequency, No Hematuria, No Urinary Incontinence, No Urgency, No Flank Pain, No Urinary Flow Changes, No Hesitancy Musculoskeletal : No joint pain, No Myalgias, No Joint Swelling Skin : No Skin Lesions, No rash Neuro : No Weakness, No Numbness, No Paresthesias, No Loss of Consciousness, No Dizziness, No Headache Psych : Complaining of anxiety and depression, positive suicide attempt, no HI Heme/Lymph: No Bruising, No Bleeding,No Lymphadenopathy Endocrine : No Polyuria, No Polydipsia, No Temperature Intolerance [facility] Past Medical History Medical History Acute gastritis with bleeding Alcohol use disorder, severe, dependence Anxiety Arthritis Depression Diabetes mellitus, type 2 Herniated disc Hypertension Morbid obesity Obesity TERRIE on CPAP PTSD (post-traumatic stress disorder) Sleep apnea Systolic heart failure Family History Family History Mother Diabetes Social History Social History Household Members: None Housing: Apartment Do you presently have visiting nurse or other home services: No Alcohol intake: current Alcohol intake frequency: holidays/special occasions only Alcohol type: wine Patient Tobacco Use Status: Never used Tobacco e-Cigarette/Vaping Use: Never Used Second Hand Smoke Exposure: No service: Yes Current occupational status: employed Sexual orientation: Straight/Heterosexual Physical Exam Const: Other: Appearance: Alert. Oriented X3. No acute distress. Eyes: Pupils equal, round and reactive to light. ENT: Pharynx normal. Neck: Normal inspection. Neck supple. No lymph nodes noted. No crepitus CVS: Normal heart rate and rhythm. Pulses normal. Normal S1 and S2 Respiratory: No respiratory distress. Breath sounds normal. No Wheezing. No rales Abdomen: Soft and nontender. No rigidity. No distention. Skin: Skin warm and dry. Normal skin color. Normal skin turgor. Extremities: No lower extremity edema. No Lacerations. No Rash Neuro: Oriented X 3. No motor deficit. No sensory deficit. Moving all extremities. No slurred speech. CN 2 through 12 grossly intact Psych: calm, cooperative, teary Course Course Course Narrative: -patient attempted suicide by ingesting a large amount of alcohol and benzodiazepines -patient is on a Section 12 -patient is on a 1-1 -all labs pending -poison Control has been contacted Discharge Plan Discharge Clinical Impression: Suicide attempt, Alcohol use disorder, severe, dependence Patient Disposition: Still a Patient Prescriptions: No Action trazodone 50 mg Tablet 50 mg PO BEDTIME 30 Days Qty: 30 0RF naltrexone 50 mg Tablet 50 mg PO DAILY 30 Days Qty: 30 0RF amlodipine 5 mg Tablet 5 mg PO DAILY 30 Days Qty: 30 0RF Protocol: Hold for SBP< HOLD for SBP < : 90 lisinopril 10 mg Tablet 10 mg PO DAILY 30 Days Qty: 30 0RF Protocol: Hold for SBP< HOLD for SBP < : 90 omeprazole 20 mg Capsule,Delayed Release(Dr/Ec) 20 mg PO DAILY@0630 30 Days Qty: 30 0RF albuterol sulfate [Ventolin HFA] 90 mcg/actuation Hfa Aerosol Inhaler 1 puff inhalation RQ4H PRN (Reason: Shortness Of Breath) 30 Days Qty: 1 0RF escitalopram oxalate 20 mg Tablet 20 mg PO DAILY 30 Days Qty: 30 0RF metoprolol tartrate 25 mg Tablet 25 mg PO BID 30 Days Qty: 60 0RF Protocol: Hold for SBP/HR < HOLD for SBP < : 90 HOLD for HR < : 60
[2023-05-13 01:50] VITALS: BP 126/76; BP 134/56; PULSE 106; PULSE 89; RESP 19; TEMP 36.6; O2SAT 93; BMI 59.3
[2023-05-13 02:00] LABS: MANUAL DIFF FLAG NO
[2023-05-13 02:01] LABS: Basophils Absolute Auto 0.1 X10*3/uL (0.0-0.2); Basophils Percent Auto 0.9 % (0-2); Eosinophils Absolute Auto 0.1 X10*3/uL (0.0-0.4); Eosinophils Percent Auto 1.3 % (0-4); Hemoglobin 14.1 g/dl (14.0-18.0); Imm Gran Abs Auto 0.01 X10*3/uL (0.00-0.03); Imm Gran Pct Auto 0.1 % (0.0-0.4); Lymphocytes Absolute Auto 2.2 X10*3/uL (1.2-4.9); Lymphocytes Percent Auto 31.7 % (20-40); Mean Corpuscular HGB Conc 32.8 g/dl (31.0-36.0); Mean Corpuscular Hemoglobin 29.7 pg (27.0-33.0); Mean Corpuscular Volume 90.7 fL (80.0-98.0); Mean Platelet Volume 9.6 fL (9.4-12.4); Monocytes Absolute Auto 0.5 X10*3/uL (0.1-1.2); Monocytes Percent Auto 7.9 % (2-11); Neutrophils Percent Auto 58.1 % (45-73); Platelet Count 328 X10*3/uL (160-400); Red Blood Count 4.74 X10*6/uL (4.60-5.80); Red Cell Distribution Width 13.9 % (11.0-16.0); White Blood Count 6.9 X10*3/uL (4.8-10.8)
[2023-05-13 02:18] LABS: Ethanol 218 mg/dL
--- NOTE | 2023-05-13 02:19 | PC.NURSE ---
This RN contacted poison control. directed to obtain LFT bloodwork and provide supportive care, while waiting for lab results
[2023-05-13 02:20] LABS: Alanine Aminotransferase 30 U/L (0-40); Albumin Level 3.7 g/dL (3.5-5.0); Alkaline Phosphatase 65 U/L (39-117); Anion Gap 17 (12-20); Aspartate Amino Transferase 36 U/L (5-37); Bilirubin Total 0.3 mg/dL (0.0-1.0); Blood Urea Nitrogen 9 mg/dL (9-16); Calcium 8.6 mg/dL (8.4-10.2); Carbon Dioxide 26 mmol/L (22-29); Chloride 105 mmol/L (96-108); Creatinine Clr Calc Pharmacy 228.3; Estimated Glomerular Filt Rate > 60; Glucose Random 137 mg/dL (60-115); Potassium 4.4 mmol/L (3.3-5.1); Sodium 144 mmol/L (135-145); Total Protein 7.7 g/dL (6.5-8.0)
--- NOTE | 2023-05-13 04:44 | PC.NURSE ---
Posion control reached out to this RN. Provided labs, and pt status. Poison control indicated they would sign off on this patient as he is stable
[2023-05-13 04:46] VITALS: BP 122/57; PULSE 86; RESP 21; TEMP 36.7; O2SAT 94
--- NOTE | 2023-05-13 05:42 | PC.NURSE ---
Patient just got transferred from main ed, patient is obese but ambulates independently, behavior non concerning, cleared by poison control, care consult ordered/pending evaluation, med rec completed completed/pending provider's approval, labs completed/pending MOHAMUD result, VSS, will continue to monitor.
[2023-05-13 05:57] LABS: Appearance Urine Clear; Color Urine Yellow; Glucose Urine UA Negative (Negative); Leukocyte Esterase Urine Negative (Negative); Nitrite Urine Negative (Negative); PH 5.5 (5.0-9.0); Specific Gravity - Urine >= 1.030 (1.005-1.025); UMIC TRIGGER UA YES; Urine Blood Negative (Negative); Urine Ketones Trace mg/dL (Negative); Urine Protein 30 (1+) mg/dL (Neg-Trace)
[2023-05-13 06:06] LABS: Amphetamine Screen Urine Not Detected (Not Detect); Barbiturates, Urine POSITIVE (Not Detect); Benzodiazepines Screen Urine Not Detected (Not Detect); Cannabinoid Screen Urine Not Detected (Not Detect); Cocaine Screen Urine Not Detected (Not Detect); Fentanyl, urine Not Detected (Not Detect); Opiate Screen Urine Not Detected (Not Detect); Phencyclidine Screen Urine Not Detected (Not Detect)
[2023-05-13 06:42] LABS: Bacteria Urine None Seen (None Seen); Hyaline Casts Urine 0-2 /LPF (0-2); RBC Urine 0-2 /HPF (0-2); Squamous Epithelial Cell Urine 0-2 /HPF (0-2); WBC Urine 0-5 /HPF (0-5)
--- NOTE | 2023-05-13 07:28 | PC.NURSE ---
patient currently sleeping, respirations even and non labored. will continue to monitor.
--- NOTE | 2023-05-13 07:48 | PHA.MEDREC ---
Pharmacy Consult ? Medication Reconciliation Pharmacy has completed the medication reconciliation. Reviewed med rec done by nursing (Jaylan).
[2023-05-13] MEDS: Ondansetron ODT 4 MG TAB.RAPDIS TRANSLINGU (07:55)
--- NOTE | 2023-05-13 07:55 | PHA.MEDREC ---
Pharmacy Consult ? Medication Reconciliation Pharmacy has reviewed the medication reconciliation done by RN
--- NOTE | 2023-05-13 07:55 | PC.NURSE ---
patient a&ox3, pt came to nursing station requesting to move elsewhere pt states he cant stay in the pod that he feels isolated and wishes to be moved elsewhere. pt c/o nausea- spoke with provider obtained 1x order for zofran- pt medicated per order. pt requesting his normal daily meds- called pharmacy and they are reviewing his med history will medicate once his meds are approved by pharmacy.
[2023-05-13] MEDS: Furosemide 40 MG TABLET PO (08:09)
[2023-05-13] MEDS: carvediloL 6.25 MG TABLET PO ×2 (08:09→20:39)
[2023-05-13] MEDS: hydrOXYzine HCL 50 MG TABLET PO (08:09)
[2023-05-13] MEDS: metFORMIN HCl 500 MG TABLET PO ×2 (08:09→20:39)
[2023-05-13] MEDS: Escitalopram Oxalate 20 MG TABLET PO (08:10)
[2023-05-13] MEDS: Potassium Chloride ER 10 MEQ TABLET.ER PO (08:10)
[2023-05-13] MEDS: Losartan Potassium 25 MG TABLET PO (08:10)
--- NOTE | 2023-05-13 08:11 | PC.NURSE ---
pt requesting to speak with form grader operator, given it is a holiday weekend- volunteer form grader operator comes in when there is emergent situations, will notify charge of pt request and if the form grader operator comes in have them stop over to see the patient
--- NOTE | 2023-05-13 08:15 | PC.NURSE ---
pt medicated per order
--- NOTE | 2023-05-13 09:55 | PC.NURSE ---
care team called stating pt needed a covid swab performed- order has been placed- tech to obtain swab.
[2023-05-13 11:38] VITALS: BP 134/71; PULSE 94; RESP 16; TEMP 36.4; O2SAT 94
--- NOTE | 2023-05-13 11:42 | PC.NURSE ---
alert and oriented, vss, pt states that he is SI and has been for the past three days due to not taking his medication. pt states that he has been drinking more recently which also makes it worse. pt states that he wants to use heroin to self harm himself. pt lying comfortably in bed, states that he is still slightly nauseous and does not have an appetite. will continue to monitor.
--- NOTE | 2023-05-13 11:46 | PC.NURSE ---
report given to m5.
[2023-05-13 13:40] VITALS: BP 144/91; PULSE 101; RESP 16; TEMP 35.5; O2SAT 96
[2023-05-13 18:00] VITALS: BP 143/94; PULSE 97; TEMP 36.2; O2SAT 95
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
[2023-05-13] MEDS: Atorvastatin Calcium 40 MG TABLET PO (20:39)
[2023-05-13] MEDS: LORazepam 1 MG TABLET PO (20:39)
--- NOTE | 2023-05-13 22:29 | PC.NURSE ---
at 1600 CIWA, pt did not want ativan.
[2023-05-13 23:21] VITALS: PULSE 94; RESP 19; O2SAT 92
[2023-05-14 08:05] LABS: Cholesterol 143 mg/dL; HDL Cholesterol 52 mg/dL; LDL Cholesterol Calculated 46 mg/dl; Magnesium 1.7 mg/dL (1.6-2.6); Triglycerides 226 mg/dL
[2023-05-14 08:19] LABS: Free T4 (Free Thyroxine) 0.97 ng/dL (0.71-1.85); Thyroid Stimulating Hormone 1.14 uIU/mL (0.32-4.0)
[2023-05-14 08:41] LABS: Folate 8.3 ng/mL (> or = 4.0)
[2023-05-14 08:49] LABS: Estimated Average Glucose 146 mg/dL; Hemoglobin A1c % 6.7 %
--- NOTE | 2023-05-14 08:58 | HO.PSYCHPN ---
Subjective Subjective Date of Service: 05/14/23 Reason For Visit: Recurrent major depression; Alcohol use disorder Subjective Notes: Conditional Voluntary Healthcare Proxy: No Guardianship: No Medical Problems Affecting Mental Status: No Interim History: Pt visable in milieu. Discussed struggle to remain sober. Believes he has experienced a major shift. By hx he is a loner, now he cannot tolerate being alone. Discussed this change as progress. Review of Lexapro-reports it is OK when I am sober . Discussed augmentation, will trial Lamictal Medication Compliance: Yes Side effects from medications: No Attending Groups: Yes Review of Systems Acute medical concerns: No Medical Review of Systems: unchanged Mental Status Exam Mental Status Exam Patient Appearance: Fatigued Patient Orientation: Person, Place, Time and Situation Level of Consciousness: Alert Patient Behavior: Appropriate, Talkative, Cooperative and Good Eye Contact Mood Description: Depressed Affect Description: Flat Patient Cognition Impaired: No Ability to Follow Directions: Good Speech Pattern: Spontaneous Speech Memory Description: Intact Hallucinations: None Delusions: Not Present Perceptual Disturbances: Depersonalization and Derealization Thought Process: Rumination Thought Content: positive for Perseveration and positive for Suicidal Ideation Depressive Symptoms: Feelings of Worthlessness, Hopelessness, Isolating-Friends/Family, Increased Fatigue, Thoughts of /Suicide and Loss of Energy Judgement: Fair Diagnostics Vital Signs (24Hr): Vital Signs - 24 hr 05/13/23 11:38 05/13/23 13:40 05/13/23 18:00 Temperature 97.5 F 96 F L 97.1 F Pulse Rate 94 101 H 97 Respiratory Rate 16 16 Blood Pressure 134/71 144/91 H 143/94 H Pulse Oximetry 94 96 95 Oxygen Delivery Method Room Air Room Air Room Air 05/13/23 23:21 Temperature Pulse Rate Respiratory Rate 19 Blood Pressure Pulse Oximetry Oxygen Delivery Method BMI result Body Mass Index 59.3 Labs 05/13/23 01:56 05/13/23 01:56 Labs: Laboratory Results - last 48 hr 05/13/23 05/13/23 05/13/23 01:56 01:56 01:56 WBC 6.9 RBC 4.74 Hgb 14.1 Hct 43.0 MCV 90.7 MCH 29.7 MCHC 32.8 RDW 13.9 Plt Count 328 D MPV 9.6 Immature Gran % (Auto) 0.1 Neut % (Auto) 58.1 Lymph % (Auto) 31.7 White % (Auto) 7.9 Eos % (Auto) 1.3 Baso % (Auto) 0.9 Lymph # (Auto) 2.2 White # (Auto) 0.5 Eos # (Auto) 0.1 Baso # (Auto) 0.1 Abs Immat Gran (auto) 0.01 Absolute Neuts (auto) 4.0 Absolute Nucleated RBC 0.000 Nucleated RBC % (auto) 0.0 Sodium 144 Potassium 4.4 Chloride 105 Carbon Dioxide 26 Anion Gap 17 BUN 9 Creatinine 0.67 Estim Creat Clear Calc 228.3 Estimated GFR > 60 Random Glucose 137 H Estimat Average Glucose Hemoglobin A1c % Calcium 8.6 Magnesium Total Bilirubin 0.3 AST 36 ALT 30 Alkaline Phosphatase 65 Troponin I High Sens 9.7 Total Protein 7.7 Albumin 3.7 Triglycerides Cholesterol LDL Cholesterol, Calc HDL Cholesterol Folate TSH Free T4 Urine Color Urine Appearance Urine pH Ur Specific [place] Urine Protein Urine Glucose (UA) Urine Ketones Urine Blood Urine Nitrite Ur Leukocyte Esterase Urine RBC Urine WBC Ur Squamous Epith Cells Urine Bacteria Hyaline Casts Salicylates Urine Opiates Screen Urine Fentanyl Screen Acetaminophen Ur Barbiturates Screen Ur Phencyclidine Scrn Ur Amphetamines Screen U Benzodiazepines Scrn Urine Cocaine Screen U Marijuana (THC) Screen Ethyl Alcohol COVID-19 ([facility]) COVID-19 Clin Com 05/13/23 05/13/23 05/13/23 01:56 01:56 01:56 WBC RBC Hgb Hct MCV MCH MCHC RDW Plt Count MPV Immature Gran % (Auto) Neut % (Auto) Lymph % (Auto) White % (Auto) Eos % (Auto) Baso % (Auto) Lymph # (Auto) White # (Auto) Eos # (Auto) Baso # (Auto) Abs Immat Gran (auto) Absolute Neuts (auto) Absolute Nucleated RBC Nucleated RBC % (auto) Sodium Potassium Chloride Carbon Dioxide Anion Gap BUN Creatinine Estim Creat Clear Calc Estimated GFR Random Glucose Estimat Average Glucose Hemoglobin A1c % Calcium Magnesium 2.0 Total Bilirubin AST ALT Alkaline Phosphatase Troponin I High Sens Total Protein Albumin Triglycerides Cholesterol LDL Cholesterol, Calc HDL Cholesterol Folate TSH Free T4 Urine Color Urine Appearance Urine pH Ur Specific [place] Urine Protein Urine Glucose (UA) Urine Ketones Urine Blood Urine Nitrite Ur Leukocyte Esterase Urine RBC Urine WBC Ur Squamous Epith Cells Urine Bacteria Hyaline Casts Salicylates < 5.0 L Cancelled Urine Opiates Screen Urine Fentanyl Screen Acetaminophen < 17 Ur Barbiturates Screen Ur Phencyclidine Scrn Ur Amphetamines Screen U Benzodiazepines Scrn Urine Cocaine Screen U Marijuana (THC) Screen Ethyl Alcohol 218 COVID-19 ([facility]) COVID-19 Clin Com 05/13/23 05/13/23 05/13/23 05:45 05:45 10:00 WBC RBC Hgb Hct MCV MCH MCHC RDW Plt Count MPV Immature Gran % (Auto) Neut % (Auto) Lymph % (Auto) White % (Auto) Eos % (Auto) Baso % (Auto) Lymph # (Auto) White # (Auto) Eos # (Auto) Baso # (Auto) Abs Immat Gran (auto) Absolute Neuts (auto) Absolute Nucleated RBC Nucleated RBC % (auto) Sodium Potassium Chloride Carbon Dioxide Anion Gap BUN Creatinine Estim Creat Clear Calc Estimated GFR Random Glucose Estimat Average Glucose Hemoglobin A1c % Calcium Magnesium Total Bilirubin AST ALT Alkaline Phosphatase Troponin I High Sens Total Protein Albumin Triglycerides Cholesterol LDL Cholesterol, Calc HDL Cholesterol Folate TSH Free T4 Urine Color Yellow Urine Appearance Clear Urine pH 5.5 Ur Specific [place] >= 1.030 H Urine Protein 30 (1+) H Urine Glucose (UA) Negative Urine Ketones Trace Urine Blood Negative Urine Nitrite Negative Ur Leukocyte Esterase Negative Urine RBC 0-2 Urine WBC 0-5 Ur Squamous Epith Cells 0-2 Urine Bacteria None Seen Hyaline Casts 0-2 Salicylates Urine Opiates Screen Not Detected Urine Fentanyl Screen Not Detected Acetaminophen Ur Barbiturates Screen POSITIVE H Ur Phencyclidine Scrn Not Detected Ur Amphetamines Screen Not Detected U Benzodiazepines Scrn Not Detected Urine Cocaine Screen Not Detected U Marijuana (THC) Screen Not Detected Ethyl Alcohol COVID-19 ([facility]) Negative COVID-19 Clin Com See Note 05/14/23 05/14/23 05/14/23 07:14 07:14 07:14 WBC RBC Hgb Hct MCV MCH MCHC RDW Plt Count MPV Immature Gran % (Auto) Neut % (Auto) Lymph % (Auto) White % (Auto) Eos % (Auto) Baso % (Auto) Lymph # (Auto) White # (Auto) Eos # (Auto) Baso # (Auto) Abs Immat Gran (auto) Absolute Neuts (auto) Absolute Nucleated RBC Nucleated RBC % (auto) Sodium Potassium Chloride Carbon Dioxide Anion Gap BUN Creatinine Estim Creat Clear Calc Estimated GFR Random Glucose Estimat Average Glucose 146 Hemoglobin A1c % 6.7 Calcium Magnesium 1.7 Total Bilirubin AST ALT Alkaline Phosphatase Troponin I High Sens Total Protein Albumin Triglycerides 226 Cholesterol 143 LDL Cholesterol, Calc 46 HDL Cholesterol 52 Folate 8.3 TSH 1.14 Free T4 0.97 Urine Color Urine Appearance Urine pH Ur Specific [place] Urine Protein Urine Glucose (UA) Urine Ketones Urine Blood Urine Nitrite Ur Leukocyte Esterase Urine RBC Urine WBC Ur Squamous Epith Cells Urine Bacteria Hyaline Casts Salicylates Urine Opiates Screen Urine Fentanyl Screen Acetaminophen Ur Barbiturates Screen Ur Phencyclidine Scrn Ur Amphetamines Screen U Benzodiazepines Scrn Urine Cocaine Screen U Marijuana (THC) Screen Ethyl Alcohol COVID-19 ([facility]) COVID-19 Clin Com Medications Medications Current Medications Acetaminophen (Acetaminophen 325 Mg Tablet) 650 mg PO Q6H PRN PRN Reason: Headache/Pain Mild Scale (1-3) Al Hydroxide/Mg Hydroxide (Magnesium Hydrox/Alum Hydrox 30 Ml Oral.Susp) 30 ml PO Q6H PRN PRN Reason: Heartburn/Nausea Albuterol Sulfate (Albuterol Sulfate 90 Mcg 8 Gm Inhaler) 1 puff INHALE RQ4H PRN PRN Reason: Shortness Of Breath Atorvastatin Calcium (Atorvastatin Calcium 40 Mg Tablet) 40 mg PO BEDTIME [facility] Last Admin: 05/13/23 20:39 Dose: 40 mg Carvedilol (Carvedilol 6.25 Mg Tablet) 6.25 mg PO BID [facility]; Protocol Last Admin: 05/13/23 20:39 Dose: 6.25 mg Escitalopram Oxalate (Escitalopram Oxalate 20 Mg Tablet) 20 mg PO DAILY [facility] Last Admin: 05/13/23 08:10 Dose: 20 mg Furosemide (Furosemide 40 Mg Tablet) 40 mg PO DAILY [facility]; Protocol Last Admin: 05/13/23 08:09 Dose: 40 mg Hydroxyzine HCl (Hydroxyzine Hcl 50 Mg Tablet) 50 mg PO BID PRN PRN Reason: anxiety Last Admin: 05/13/23 08:09 Dose: 50 mg Hydroxyzine HCl (Hydroxyzine Hcl 25 Mg Tablet) 25 mg PO Q6H PRN PRN Reason: Anxiety Lorazepam (Lorazepam 1 Mg Tablet) 1 mg PO Q4H PRN PRN Reason: Alcohol Withdrawal Lorazepam (Lorazepam 1 Mg Tablet) 1 mg PO BID [facility] Last Admin: 05/13/23 20:39 Dose: 1 mg Losartan Potassium (Losartan Potassium 25 Mg Tablet) 25 mg PO DAILY [facility]; Protocol Last Admin: 05/13/23 08:10 Dose: 25 mg Magnesium Hydroxide (Milk Of Magnesia 30 Ml Oral.Susp) 30 ml PO DAILY PRN PRN Reason: Constipation Metformin HCl (Metformin Hcl 500 Mg Tablet) 500 mg PO BID [facility] Last Admin: 05/13/23 20:39 Dose: 500 mg Multivitamins/Vitamin C (Multivitamin Tablet) 1 tab PO DAILY [facility] Potassium Chloride (Potassium Chloride Er 10 Meq Tablet.Er) 10 meq PO DAILY [facility] Last Admin: 05/13/23 08:10 Dose: 10 meq Thiamine HCl (Thiamine Hcl 100 Mg Tablet) 100 mg PO DAILY [facility] Trazodone HCl (Trazodone Hcl 50 Mg Tablet) 50 mg PO BEDTIME MRX1 PRN PRN Reason: Insomnia Allergies Allergies Allergy/AdvReac Type Severity Reaction Status Date / Time No Known Allergies Allergy Verified 03/13/23 10:59 Assessment & Plan Assessment & Plan (1) MDD (major depressive disorder), recurrent episode, moderate: Status: Acute Code(s): F33.1 - Major depressive disorder, recurrent, moderate (2) Alcohol use disorder, severe, dependence: Status: Acute Code(s): F10.20 - Alcohol dependence, uncomplicated Plan 05/14/23: Lamictal 25 mg HS Melatonin prn HS Patient educated on: medication risk/benefits and therapeutic strategies Informed Consent: understands Reason for continued inpatient stay Substantial Risk for: med/psych decompensation Time Spent With Patient Time: Total time managing care of this patient today ____ minutes.
[2023-05-14] MEDS: Multivitamin TABLET 1 TAB PO (09:17)
[2023-05-14] MEDS: carvediloL 6.25 MG TABLET PO (09:17)
[2023-05-14] MEDS: Potassium Chloride ER 10 MEQ TABLET.ER PO (09:18)
[2023-05-14] MEDS: LORazepam 1 MG TABLET PO ×2 (09:18→20:55)
[2023-05-14] MEDS: Thiamine HCL 100 MG TABLET PO (09:18)
[2023-05-14] MEDS: Furosemide 40 MG TABLET PO (09:18)
[2023-05-14] MEDS: metFORMIN HCl 500 MG TABLET PO ×2 (09:18→20:55)
[2023-05-14] MEDS: Losartan Potassium 25 MG TABLET PO (09:18)
[2023-05-14] MEDS: Escitalopram Oxalate 20 MG TABLET PO (09:18)
[2023-05-14 09:20] LABS: Vitamin B12 315 pg/mL (200-900)
[2023-05-14 09:22] VITALS: BP 170/87; PULSE 103; RESP 18; TEMP 36.9; O2SAT 94
--- NOTE | 2023-05-14 10:38 | PC.ADMIT ---
pt is a 52 year old male who presented to the [facility] after a suicide attempt. pt drank alcohol and took a handful of pills. pt cherrie screen was positive for barbtiruates and alcohol (BAL - 218). pt has a PMH of inpatient hospitalizations, alcohol use disorder, and major depressve disorder. during admission, pt apeared flat. patient answered all questions and signed all legals. pt reported arthiritis in his knees. pt also reported he used a CPAP at night. MD notified. start treatment plan and promote safety.
--- NOTE | 2023-05-14 15:05 | PC.NURSE ---
Pt complaint of bilateral flank pain-MD aware -hospitalist consult, labs, ultrasound ordered.
[2023-05-14 18:00] VITALS: BP 164/88; PULSE 93; TEMP 36.3; O2SAT 95
--- NOTE | 2023-05-14 19:26 | HO.PM.IMCN ---
History of Present Illness Data of Consult Service Date: 05/14/23 Requesting physician: Vanesa Mitchell Primary Care Provider: None Physician HPI Reason for consult: r flank pain 52-year-old male with history of hypertension, heart failure with reduced ejection fraction, TERRIE on CPAP, [id number] type 2 diabetes, severe alcohol use disorder, depression, anxiety, PTSD, and morbid obesity with BMI greater than 59 admitted to Psychiatry with consult placed to hospitalist evaluation of right flank pain, potassium supplementation. The patient reports this afternoon developed 7/10 right flank pain radiating into the right side. States this is worse with movement. Denies any abdominal pain, nausea, vomiting. He states the pain improved after having a large watery bowel movement but then recurred. He has not had any recurrent episodes of diarrhea since. He does endorse some dysuria but denies any hematuria, increased urinary frequency, urgency, or retention. He has no known history of nephrolithiasis. Denies any fevers or chills. He was hypertensive to 170/87 and tachycardic to 103 this morning. EKG yesterday showed normal sinus rhythm, rate 95 with incomplete right bundle chucky block, no ST or depressions. Was a mildly prolonged QTC of 505. Hematology studies yesterday unremarkable, renal function and electrolyte levels normal yesterday. Potassium was 4.4. Urinalysis negative for leukocytes, nitrites, blood, with 1+ urine protein and elevated specific gravity. Urine tox screen positive for barbiturates. Ethyl etoh yesterday 218 Review of Systems Review of Systems: General: No fevers, malaise, unintentional weight loss Cardiovascular: No chest pain, palpitations, or leg edema Respiratory: No shortness of breath, wheezing, cough GI: No abdominal pain, nausea, vomiting, diarrhea, constipation, melena, hematochezia : +dysuria. No hematuria, increased urinary frequency, decreased urinary output MSK: No myalgia, back pain. +R flank pain Neuro: No headaches, weakness, paresthesias Skin: No rashes or lesions [facility] Medical History Acute gastritis with bleeding Alcohol use disorder, severe, dependence Anxiety Arthritis Depression Diabetes mellitus, type 2 Herniated disc Hypertension Morbid obesity Obesity TERRIE on CPAP PTSD (post-traumatic stress disorder) Sleep apnea Systolic heart failure Family History Mother Diabetes Social History Household Members: None Housing: Apartment Do you presently have visiting nurse or other home services: No Alcohol intake: current Alcohol intake frequency: 3 or more drinks per day Alcohol type: hard liquor Patient Tobacco Use Status: Never used Tobacco Smoked in Last 30 Days: No e-Cigarette/Vaping Use: Never Used Second Hand Smoke Exposure: No Use of substances other than those prescribed or required for medical reasons: Yes Substance Use Type: Other Substance Use Frequency: Recent Binge Last Used Substance: Just Prior to Admission Currently Displaying Signs/Symptoms of Drug Intoxication Withdrawal: No Advance Directives: No Advance Directives Information Provided: Yes Healthcare Proxy: No Guardian: No Do you have thoughts of harming others: None Do you have a plan to hurt others: No Plan Recently lost weight without trying: No How much weight loss: Not applicable Eating poorly because of decreased appetite: No Nutrition screen score: 0 Nutrition Risks: No Nutritional Risk Poor oral hygiene: No service: Yes Current occupational status: employed Sexual orientation: Straight/Heterosexual Meds Allergies Allergy/AdvReac Type Severity Reaction Status Date / Time No Known Allergies Allergy Verified 03/13/23 10:59 Active Medications: Current Medications Acetaminophen (Acetaminophen 325 Mg Tablet) 650 mg PO Q6H PRN PRN Reason: Headache/Pain Mild Scale (1-3) Al Hydroxide/Mg Hydroxide (Magnesium Hydrox/Alum Hydrox 30 Ml Oral.Susp) 30 ml PO Q6H PRN PRN Reason: Heartburn/Nausea Albuterol Sulfate (Albuterol Sulfate 90 Mcg 8 Gm Inhaler) 1 puff INHALE RQ4H PRN PRN Reason: Shortness Of Breath Atorvastatin Calcium (Atorvastatin Calcium 40 Mg Tablet) 40 mg PO BEDTIME [facility] Last Admin: 05/13/23 20:39 Dose: 40 mg Escitalopram Oxalate (Escitalopram Oxalate 20 Mg Tablet) 20 mg PO DAILY [facility] Last Admin: 05/14/23 09:18 Dose: 20 mg Furosemide (Furosemide 40 Mg Tablet) 40 mg PO DAILY [facility]; Protocol Last Admin: 05/14/23 09:18 Dose: 40 mg Hydroxyzine HCl (Hydroxyzine Hcl 50 Mg Tablet) 50 mg PO BID PRN PRN Reason: anxiety Last Admin: 05/13/23 08:09 Dose: 50 mg Hydroxyzine HCl (Hydroxyzine Hcl 25 Mg Tablet) 25 mg PO Q6H PRN PRN Reason: Anxiety Lorazepam (Lorazepam 1 Mg Tablet) 1 mg PO Q4H PRN PRN Reason: Alcohol Withdrawal Lorazepam (Lorazepam 1 Mg Tablet) 1 mg PO BID [facility] Last Admin: 05/14/23 09:18 Dose: 1 mg Losartan Potassium (Losartan Potassium 25 Mg Tablet) 25 mg PO DAILY [facility]; Protocol Last Admin: 05/14/23 09:18 Dose: 25 mg Magnesium Hydroxide (Milk Of Magnesia 30 Ml Oral.Susp) 30 ml PO DAILY PRN PRN Reason: Constipation Melatonin (Melatonin 3 Mg Tablet) 3 mg PO BEDTIME PRN PRN Reason: Insomnia Metformin HCl (Metformin Hcl 500 Mg Tablet) 500 mg PO BID [facility] Last Admin: 05/14/23 09:18 Dose: 500 mg Multivitamins/Vitamin C (Multivitamin Tablet) 1 tab PO DAILY [facility] Last Admin: 05/14/23 09:17 Dose: 1 tab Thiamine HCl (Thiamine Hcl 100 Mg Tablet) 100 mg PO DAILY [facility] Last Admin: 05/14/23 09:18 Dose: 100 mg Trazodone HCl (Trazodone Hcl 50 Mg Tablet) 50 mg PO BEDTIME MRX1 PRN PRN Reason: Insomnia Home Medications Medication Instructions Recorded Confirmed Last Taken Type atorvastatin 40 mg tablet 40 mg PO BEDTIME 05/13/23 05/13/23 Unknown History carvedilol 6.25 mg tablet 6.25 mg PO BID 05/13/23 05/13/23 Unknown History escitalopram oxalate 20 mg tablet 20 mg PO DAILY 05/13/23 05/13/23 Unknown History furosemide 40 mg tablet 40 mg PO DAILY 05/13/23 05/13/23 Unknown History hydroxyzine pamoate 50 mg capsule 50 mg PO BID PRN anxiety 05/13/23 05/13/23 Unknown History losartan 25 mg tablet 25 mg PO DAILY 05/13/23 05/13/23 Unknown History metformin 500 mg tablet 500 mg PO BID 05/13/23 05/13/23 Unknown History potassium chloride 10 mEq 10 meq PO DAILY 05/13/23 05/13/23 Unknown History capsule,extended release Physical Exam Vital Signs and Narrative: Vital Signs: Last Vital Signs Temp 98.5 F 05/14/23 09:22 Pulse 103 H 05/14/23 09:22 Resp 18 05/14/23 09:22 BP 170/87 H 05/14/23 09:22 Pulse Ox 94 05/14/23 09:22 O2 Del Method Room Air 05/14/23 09:22 O2 Flow Rate 2 05/13/23 04:46 BMI result Body Mass Index 59.3 Constitutional - Awake and Alert, No apparent distress Eyes - PERRLA, EOMI Cardiovascular - S1S2, RRR, No edema Respiratory - Normal lung expansion, Normal respiratory effort, No respiratory distress, CTA bilaterally Gastrointestinal - NT / ND; +BS; No rebound or guarding - +R CVA tenderness Extremities - no calf tenderness bilaterally, no swelling Musculoskeletal - Right flank pain with light palpation into the side Skin - Warm/Dry Neurological - Alert & oriented x3 Psychological - Appropriate affect Results Labs 05/13/23 01:56 05/13/23 01:56 Labs: Laboratory Results - last 24 hr 05/14/23 05/14/23 05/14/23 07:14 07:14 07:14 Estimat Average Glucose 146 Hemoglobin A1c % 6.7 Magnesium 1.7 Triglycerides 226 Cholesterol 143 LDL Cholesterol, Calc 46 HDL Cholesterol 52 Vitamin B12 315 Folate 8.3 TSH 1.14 Free T4 0.97 Assessment and Plan (1) Right flank pain: Status: Acute Plan 52-year-old male with history of hypertension, heart failure with reduced ejection fraction, TERRIE on CPAP, [id number] type 2 diabetes, severe alcohol use disorder, depression, anxiety, PTSD, and morbid obesity with BMI greater than 59 admitted to Psychiatry with consult placed to hospitalist evaluation of right flank pain, potassium supplementation. #Right flank pain -05/13, renal function normal, UA unremarkable -Will repeat UA today given associated dysuria to evaluate for infection or hematuria indicative of renal stone -Renal u/s pending which may not be diagnostic given patient's body habitus. However, suspicion right now for renal stones is low. If UA positive for hematuria, will consider CT of the abdomen/pelvis -Consider musculoskeletal etiology. Tylenol, lidocaine patches p.r.n. #Uncontrolled HTN -bp was controlled in ED, low suspicion for GABI. Will cancel renal doppler -Increase carvedilol to 12.5 mg b.i.d., continue losartan 25 mg, and furosemide 40 mg daily -potassium 4.4. Will discontinue KCl 10 mEq supplement as is likely not needed -Monitor blood pressures -Recheck BMP am #Acute diarrhea -single episode without recurrence -Above pain improved following BM. Consider IBS? Outpt follow up -ABd pain and diarrhea can also result from metformin 500mg BID to ER formulation Will continue to follow for results. Thank you for this consult. Time Spent With Patient Time: Total time managing care of this patient today ____ minutes.
[2023-05-14] MEDS: carvediloL 12.5 MG TABLET PO (20:54)
[2023-05-14] MEDS: Atorvastatin Calcium 40 MG TABLET PO (20:55)
[2023-05-14 23:27] VITALS: PULSE 98; RESP 18; O2SAT 93
[2023-05-15 08:33] VITALS: BP 133/81; PULSE 87; RESP 16; TEMP 36.5; O2SAT 97
[2023-05-15] MEDS: Escitalopram Oxalate 20 MG TABLET PO (10:30)
--- NOTE | 2023-05-15 11:52 | HO.PSYCHPN ---
Subjective Subjective Date of Service: 05/15/23 Reason For Visit: Recurrent major depression; Alcohol use disorder Subjective Notes: Conditional Voluntary and 3 Day Healthcare Proxy: No Guardianship: No Medical Problems Affecting Mental Status: No Interim History: I know what I need to do. Isolation tends to push me to relapse and more depression. TDN signed. Pt completed renal ultrasound-no reading as yet. Lamictal on hold until renal status is clarified Pt in the milieu, social with peers, going to groups, this is what really helps me Medication Compliance: Yes Side effects from medications: No Attending Groups: Intermittent Review of Systems Acute medical concerns: No Medical Review of Systems: unchanged Mental Status Exam Mental Status Exam Patient Appearance: Fatigued Patient Orientation: Person, Place, Time and Situation Level of Consciousness: Alert Patient Behavior: Appropriate, Talkative, Cooperative and Good Eye Contact Mood Description: Depressed Affect Description: Flat Patient Cognition Impaired: No Ability to Follow Directions: Good Speech Pattern: Spontaneous Speech Memory Description: Intact Hallucinations: None Delusions: Not Present Perceptual Disturbances: Depersonalization and Derealization Thought Process: Rumination Thought Content: positive for Perseveration Depressive Symptoms: Feelings of Worthlessness, Hopelessness, Increased Fatigue and Loss of Energy Judgement: Good Diagnostics Vital Signs (24Hr): Vital Signs - 24 hr 05/14/23 18:00 05/14/23 23:27 05/15/23 08:33 Temperature 97.3 F 97.7 F Pulse Rate 93 87 Respiratory Rate 18 16 Blood Pressure 164/88 H 133/81 Pulse Oximetry 95 97 Oxygen Delivery Method Room Air Room Air BMI result Body Mass Index 59.3 Labs 05/13/23 01:56 05/14/23 19:58 Labs: Laboratory Results - last 48 hr 05/14/23 05/14/23 05/14/23 07:14 07:14 07:14 ESR Sodium Potassium Chloride Carbon Dioxide Anion Gap BUN Creatinine Estim Creat Clear Calc Estimated GFR Random Glucose Estimat Average Glucose 146 Hemoglobin A1c % 6.7 Calcium Magnesium 1.7 C-Reactive Protein Triglycerides 226 Cholesterol 143 LDL Cholesterol, Calc 46 HDL Cholesterol 52 Vitamin B12 315 Folate 8.3 Procalcitonin TSH 1.14 Free T4 0.97 Urine Color Urine Appearance Urine pH Ur Specific [place] Urine Protein Urine Glucose (UA) Urine Ketones Urine Blood Urine Nitrite Ur Leukocyte Esterase Urine RBC Urine WBC Ur Squamous Epith Cells Urine Bacteria Hyaline Casts 0705/15/23 05/15/23 19:58 07:44 07:44 ESR 19 H Sodium 140 Potassium 3.7 Chloride 101 Carbon Dioxide 22 Anion Gap 21 H BUN 12 Creatinine 0.88 Estim Creat Clear Calc 173.8 Estimated GFR > 60 Random Glucose 152 H Estimat Average Glucose Hemoglobin A1c % Calcium 9.5 D Magnesium C-Reactive Protein 3.65 H Triglycerides Cholesterol LDL Cholesterol, Calc HDL Cholesterol Vitamin B12 Folate Procalcitonin 0.02 TSH Free T4 Urine Color Urine Appearance Urine pH Ur Specific [place] Urine Protein Urine Glucose (UA) Urine Ketones Urine Blood Urine Nitrite Ur Leukocyte Esterase Urine RBC Urine WBC Ur Squamous Epith Cells Urine Bacteria Hyaline Casts 05/15/23 11:15 ESR Sodium Potassium Chloride Carbon Dioxide Anion Gap BUN Creatinine Estim Creat Clear Calc Estimated GFR Random Glucose Estimat Average Glucose Hemoglobin A1c % Calcium Magnesium C-Reactive Protein Triglycerides Cholesterol LDL Cholesterol, Calc HDL Cholesterol Vitamin B12 Folate Procalcitonin TSH Free T4 Urine Color Dark Yellow Urine Appearance Clear Urine pH 5.5 Ur Specific [place] >= 1.030 H Urine Protein 30 (1+) H Urine Glucose (UA) Negative Urine Ketones Trace Urine Blood Negative Urine Nitrite Negative Ur Leukocyte Esterase Negative Urine RBC 0-2 Urine WBC 0-5 Ur Squamous Epith Cells 0-2 Urine Bacteria None Seen Hyaline Casts 3-5 Medications Medications Current Medications Acetaminophen (Acetaminophen 325 Mg Tablet) 650 mg PO Q6H PRN PRN Reason: Headache/Pain Mild Scale (1-3) Al Hydroxide/Mg Hydroxide (Magnesium Hydrox/Alum Hydrox 30 Ml Oral.Susp) 30 ml PO Q6H PRN PRN Reason: Heartburn/Nausea Albuterol Sulfate (Albuterol Sulfate 90 Mcg 8 Gm Inhaler) 1 puff INHALE RQ4H PRN PRN Reason: Shortness Of Breath Atorvastatin Calcium (Atorvastatin Calcium 40 Mg Tablet) 40 mg PO BEDTIME [facility] Last Admin: 05/14/23 20:55 Dose: 40 mg Carvedilol (Carvedilol 12.5 Mg Tablet) 12.5 mg PO BID [facility]; Protocol Last Admin: 05/15/23 10:33 Dose: Not Given Escitalopram Oxalate (Escitalopram Oxalate 20 Mg Tablet) 20 mg PO DAILY [facility] Last Admin: 05/15/23 10:30 Dose: 20 mg Furosemide (Furosemide 40 Mg Tablet) 40 mg PO DAILY [facility]; Protocol Last Admin: 05/15/23 10:34 Dose: Not Given Hydroxyzine HCl (Hydroxyzine Hcl 50 Mg Tablet) 50 mg PO BID PRN PRN Reason: anxiety Last Admin: 05/13/23 08:09 Dose: 50 mg Hydroxyzine HCl (Hydroxyzine Hcl 25 Mg Tablet) 25 mg PO Q6H PRN PRN Reason: Anxiety Lidocaine (Lidocaine 4 % Patch Adh..Patch) 1 patch TRANSDERMA DAILY [facility]; Protocol Lorazepam (Lorazepam 1 Mg Tablet) 1 mg PO Q4H PRN PRN Reason: Alcohol Withdrawal Lorazepam (Lorazepam 1 Mg Tablet) 1 mg PO BID [facility] Last Admin: 05/15/23 10:34 Dose: Not Given Losartan Potassium (Losartan Potassium 25 Mg Tablet) 25 mg PO DAILY [facility]; Protocol Last Admin: 05/15/23 10:34 Dose: Not Given Magnesium Hydroxide (Milk Of Magnesia 30 Ml Oral.Susp) 30 ml PO DAILY PRN PRN Reason: Constipation Melatonin (Melatonin 3 Mg Tablet) 3 mg PO BEDTIME PRN PRN Reason: Insomnia Last Admin: 05/14/23 20:59 Dose: 3 mg Metformin HCl (Metformin Hcl 500 Mg Tablet) 500 mg PO BID [facility] Last Admin: 05/15/23 10:34 Dose: Not Given Metformin HCl (Metformin Hcl Er 500 Mg Tab.Er.24h) 500 mg PO DAILY@1700 [facility] Multivitamins/Vitamin C (Multivitamin Tablet) 1 tab PO DAILY [facility] Last Admin: 05/15/23 10:34 Dose: Not Given Thiamine HCl (Thiamine Hcl 100 Mg Tablet) 100 mg PO DAILY [facility] Last Admin: 05/15/23 10:34 Dose: Not Given Trazodone HCl (Trazodone Hcl 50 Mg Tablet) 50 mg PO BEDTIME MRX1 PRN PRN Reason: Insomnia Allergies Allergies Allergy/AdvReac Type Severity Reaction Status Date / Time No Known Allergies Allergy Verified 03/13/23 10:59 Assessment & Plan Assessment & Plan (1) MDD (major depressive disorder), recurrent episode, moderate: Status: Acute Code(s): F33.1 - Major depressive disorder, recurrent, moderate Assessment and Plan: 05/15/23- Continue current regime and plan of care, holding lamictal at this time. (2) Alcohol use disorder, severe, dependence: Status: Acute Code(s): F10.20 - Alcohol dependence, uncomplicated Plan 52-year-old male with history of hypertension, heart failure with reduced ejection fraction, TERRIE on CPAP, [id number] type 2 diabetes, severe alcohol use disorder, depression, anxiety, PTSD, and morbid obesity with BMI greater than 59 admitted to Psychiatry with consult placed to hospitalist evaluation of right flank pain, potassium supplementation. #Right flank pain -05/13, renal function normal, UA unremarkable -Will repeat UA today given associated dysuria to evaluate for infection or hematuria indicative of renal stone -Renal u/s pending which may not be diagnostic given patient's body habitus. However, suspicion right now for renal stones is low. If UA positive for hematuria, will consider CT of the abdomen/pelvis -Consider musculoskeletal etiology. Tylenol, lidocaine patches p.r.n. #Uncontrolled HTN -bp was controlled in ED, low suspicion for GABI. Will cancel renal doppler -Increase carvedilol to 12.5 mg b.i.d., continue losartan 25 mg, and furosemide 40 mg daily -potassium 4.4. Will discontinue KCl 10 mEq supplement as is likely not needed -Monitor blood pressures -Recheck BMP am #Acute diarrhea -single episode without recurrence -Above pain improved following BM. Consider IBS? Outpt follow up -ABd pain and diarrhea can also result from metformin 500mg BID to ER formulation Will continue to follow for results. Thank you for this consult. Patient educated on: therapeutic strategies Informed Consent: understands Reason for continued inpatient stay Substantial Risk for: rapid decompensation Time Spent With Patient Time: Total time managing care of this patient today ____ minutes.
[2023-05-15] MEDS: metFORMIN HCl ER 500 MG TAB.ER.24H PO (17:28)
[2023-05-15 20:30] VITALS: BP 142/78; PULSE 73; TEMP 35.4; O2SAT 94
[2023-05-15] MEDS: metFORMIN HCl 500 MG TABLET PO (22:47)
[2023-05-15] MEDS: LORazepam 1 MG TABLET PO (22:48)
[2023-05-15] MEDS: Atorvastatin Calcium 40 MG TABLET PO (22:48)
[2023-05-15] MEDS: carvediloL 12.5 MG TABLET PO (22:49)
[2023-05-16 01:00] VITALS: PULSE 99; RESP 24; O2SAT 94
[2023-05-16 08:44] VITALS: BP 111/75; PULSE 93; RESP 22; TEMP 1.6; TEMP 34.9; O2SAT 93
[2023-05-16] MEDS: Thiamine HCL 100 MG TABLET PO (08:46)
[2023-05-16] MEDS: Multivitamin TABLET 1 TAB PO (08:46)
[2023-05-16] MEDS: metFORMIN HCl 500 MG TABLET PO ×2 (08:46→22:22)
[2023-05-16] MEDS: Losartan Potassium 25 MG TABLET PO (08:46)
[2023-05-16] MEDS: carvediloL 12.5 MG TABLET PO ×2 (08:46→22:21)
[2023-05-16] MEDS: Escitalopram Oxalate 20 MG TABLET PO (08:47)
[2023-05-16] MEDS: Furosemide 40 MG TABLET PO (08:47)
--- NOTE | 2023-05-16 11:48 | HO.PSYCHPN ---
Subjective Subjective Date of Service: 05/16/23 Reason For Visit: Recurrent major depression; Alcohol use disorder Interim History: Patient seen and discussed. Seen in the kitchen. Sleep continues to be problematic. He uses CPAP but sleep not improved. He agrees to increase in melatonin. Patient's renal US was negative for any findings. Denies SI/HI/AVH. , Review of Systems Review of Systems General: No fevers, malaise, unintentional weight loss Cardiovascular: No chest pain, palpitations, or leg edema Respiratory: No shortness of breath, wheezing, cough GI: No abdominal pain, nausea, vomiting, diarrhea, constipation, melena, hematochezia : +dysuria. No hematuria, increased urinary frequency, decreased urinary output MSK: No myalgia, back pain. +R flank pain Neuro: No headaches, weakness, paresthesias Skin: No rashes or lesions Constitutional: Reports difficulty sleeping and Reports poor appetite Eyes: Reports no additional eye complaints Reports system reviewed and no additional complaints, except as documented Cardiovascular: Reports no additional cardiovascular complaints Respiratory: Reports no additional respiratory complaints Gastrointestinal: Reports no additional gastrointestinal complaints Genitourinary: Reports no additional male genitourinary complaints Musculoskeletal: Reports no additional musculoskeletal complaints Skin/Breast: Reports system reviewed and no additional complaints, except as docu Reports system reviewed and no additional complaints, except as documented and Reports behavioral changes Psychiatric: Reports abnormal sleep pattern, Reports behavioral changes, Reports depression, Reports difficulty concentrating, Reports hopelessness, Reports anhedonia and Reports suicidal ideation Endocrine: Reports no additional endocrine complaints Hematologic/Lymphatic: Reports no additional hematologic/lymphatic complaints Allergic/Immunologic: Reports no additional allergic/immunologic complaints Mental Status Exam Mental Status Exam Patient Appearance: Fatigued Patient Orientation: Person, Place, Time and Situation Level of Consciousness: Alert Patient Behavior: Appropriate, Talkative, Cooperative and Good Eye Contact Mood Description: Depressed Affect Description: Flat Patient Cognition Impaired: No Ability to Follow Directions: Good Speech Pattern: Spontaneous Speech Memory Description: Intact Diagnostics Vital Signs (24Hr): Vital Signs - 24 hr 05/15/23 20:30 05/16/23 01:00 05/16/23 08:44 Temperature 95.7 F L 34.9 F L Pulse Rate 73 93 Respiratory Rate 24 H 22 H Blood Pressure 142/78 H 111/75 Pulse Oximetry 94 93 Oxygen Delivery Method Room Air Room Air BMI result Body Mass Index 59.3 Labs 05/13/23 01:56 05/14/23 19:58 Labs: Laboratory Results - last 48 hr 05/14/23 05/15/23 05/15/23 19:58 07:44 07:44 ESR 19 H Sodium 140 Potassium 3.7 Chloride 101 Carbon Dioxide 22 Anion Gap 21 H BUN 12 Creatinine 0.88 Estim Creat Clear Calc 173.8 Estimated GFR > 60 Random Glucose 152 H Calcium 9.5 D C-Reactive Protein 3.65 H Procalcitonin 0.02 Urine Color Urine Appearance Urine pH Ur Specific [place] Urine Protein Urine Glucose (UA) Urine Ketones Urine Blood Urine Nitrite Ur Leukocyte Esterase Urine RBC Urine WBC Ur Squamous Epith Cells Urine Bacteria Hyaline Casts 05/15/23 11:15 ESR Sodium Potassium Chloride Carbon Dioxide Anion Gap BUN Creatinine Estim Creat Clear Calc Estimated GFR Random Glucose Calcium C-Reactive Protein Procalcitonin Urine Color Dark Yellow Urine Appearance Clear Urine pH 5.5 Ur Specific [place] >= 1.030 H Urine Protein 30 (1+) H Urine Glucose (UA) Negative Urine Ketones Trace Urine Blood Negative Urine Nitrite Negative Ur Leukocyte Esterase Negative Urine RBC 0-2 Urine WBC 0-5 Ur Squamous Epith Cells 0-2 Urine Bacteria None Seen Hyaline Casts 3-5 Imaging Radiology Impressions: ITS Impressions Renal Ultrasound 05/15/23 14:07 IMPRESSION: Unremarkable examination. Medications Medications Current Medications Acetaminophen (Acetaminophen 325 Mg Tablet) 650 mg PO Q6H PRN PRN Reason: Headache/Pain Mild Scale (1-3) Al Hydroxide/Mg Hydroxide (Magnesium Hydrox/Alum Hydrox 30 Ml Oral.Susp) 30 ml PO Q6H PRN PRN Reason: Heartburn/Nausea Albuterol Sulfate (Albuterol Sulfate 90 Mcg 8 Gm Inhaler) 1 puff INHALE RQ4H PRN PRN Reason: Shortness Of Breath Atorvastatin Calcium (Atorvastatin Calcium 40 Mg Tablet) 40 mg PO BEDTIME [facility] Last Admin: 05/15/23 22:48 Dose: 40 mg Carvedilol (Carvedilol 12.5 Mg Tablet) 12.5 mg PO BID [facility]; Protocol Last Admin: 05/16/23 08:46 Dose: 12.5 mg Escitalopram Oxalate (Escitalopram Oxalate 20 Mg Tablet) 20 mg PO DAILY [facility] Last Admin: 05/16/23 08:47 Dose: 20 mg Furosemide (Furosemide 40 Mg Tablet) 40 mg PO DAILY [facility]; Protocol Last Admin: 05/16/23 08:47 Dose: 40 mg Hydroxyzine HCl (Hydroxyzine Hcl 50 Mg Tablet) 50 mg PO BID PRN PRN Reason: anxiety Last Admin: 05/13/23 08:09 Dose: 50 mg Hydroxyzine HCl (Hydroxyzine Hcl 25 Mg Tablet) 25 mg PO Q6H PRN PRN Reason: Anxiety Lidocaine (Lidocaine 4 % Patch Adh..Patch) 1 patch TRANSDERMA DAILY [facility]; Protocol Last Admin: 05/16/23 08:49 Dose: Not Given Lorazepam (Lorazepam 1 Mg Tablet) 1 mg PO Q4H PRN PRN Reason: Alcohol Withdrawal Lorazepam (Lorazepam 1 Mg Tablet) 1 mg PO BID [facility] Last Admin: 05/16/23 08:47 Dose: Not Given Losartan Potassium (Losartan Potassium 25 Mg Tablet) 25 mg PO DAILY [facility]; Protocol Last Admin: 05/16/23 08:46 Dose: 25 mg Magnesium Hydroxide (Milk Of Magnesia 30 Ml Oral.Susp) 30 ml PO DAILY PRN PRN Reason: Constipation Melatonin (Melatonin 3 Mg Tablet) 3 mg PO BEDTIME PRN PRN Reason: Insomnia Last Admin: 05/15/23 22:54 Dose: 3 mg Metformin HCl (Metformin Hcl 500 Mg Tablet) 500 mg PO BID [facility] Last Admin: 05/16/23 08:46 Dose: 500 mg Metformin HCl (Metformin Hcl Er 500 Mg Tab.Er.24h) 500 mg PO DAILY@1700 [facility] Last Admin: 05/15/23 17:28 Dose: 500 mg Multivitamins/Vitamin C (Multivitamin Tablet) 1 tab PO DAILY [facility] Last Admin: 05/16/23 08:46 Dose: 1 tab Thiamine HCl (Thiamine Hcl 100 Mg Tablet) 100 mg PO DAILY [facility] Last Admin: 05/16/23 08:46 Dose: 100 mg Trazodone HCl (Trazodone Hcl 50 Mg Tablet) 50 mg PO BEDTIME MRX1 PRN PRN Reason: Insomnia Allergies Allergies Allergy/AdvReac Type Severity Reaction Status Date / Time No Known Allergies Allergy Verified 03/13/23 10:59 Assessment & Plan Assessment & Plan (1) MDD (major depressive disorder), recurrent episode, moderate: Status: Acute Code(s): F33.1 - Major depressive disorder, recurrent, moderate (2) Alcohol use disorder, severe, dependence: Status: Acute Code(s): F10.20 - Alcohol dependence, uncomplicated Assessment and Plan: 05/16: Increase Melatonin to 6 mg HS. Continue treatment plan. Plan 52-year-old male with history of hypertension, heart failure with reduced ejection fraction, TERRIE on CPAP, [id number] type 2 diabetes, severe alcohol use disorder, depression, anxiety, PTSD, and morbid obesity with BMI greater than 59 admitted to Psychiatry with consult placed to hospitalist evaluation of right flank pain, potassium supplementation. #Right flank pain -05/13, renal function normal, UA unremarkable -Will repeat UA today given associated dysuria to evaluate for infection or hematuria indicative of renal stone -Renal u/s pending which may not be diagnostic given patient's body habitus. However, suspicion right now for renal stones is low. If UA positive for hematuria, will consider CT of the abdomen/pelvis -Consider musculoskeletal etiology. Tylenol, lidocaine patches p.r.n. #Uncontrolled HTN -bp was controlled in ED, low suspicion for GABI. Will cancel renal doppler -Increase carvedilol to 12.5 mg b.i.d., continue losartan 25 mg, and furosemide 40 mg daily -potassium 4.4. Will discontinue KCl 10 mEq supplement as is likely not needed -Monitor blood pressures -Recheck BMP am #Acute diarrhea -single episode without recurrence -Above pain improved following BM. Consider IBS? Outpt follow up -ABd pain and diarrhea can also result from metformin 500mg BID to ER formulation Will continue to follow for results. Thank you for this consult. Reason for continued inpatient stay Substantial Risk for: harm to self, inability to function and rapid decompensation Time Spent With Patient Time: Total time managing care of this patient today ____ minutes.
--- NOTE | 2023-05-16 12:04 | PM.EVENT ---
Event Note Date of Service: 05/16/23 Event Note: Pt seen in follow up. Continues having right flank pain which has improved. Renal function, lytes, UA, renal u/s unremarkable. Suspect musculoskeletal pain. COntinue tylenol, lidocaine. He does continue to report diarrhea that is burning. No associated fevers, chills, leukocytosis, n/v/, melena, hematochezia, abd pain. Associated with urgency that resolves following BM. Will check stool studies. Immodium prn. Time Spent With Patient Time: Total time managing care of this patient today ____ minutes.
[2023-05-16 12:06] VITALS: BP 125/54; PULSE 94; RESP 20; TEMP 1.6; TEMP 34.8; O2SAT 94
--- NOTE | 2023-05-16 15:46 | PC.NURSE ---
Patient skin check completed by HR RN and IG fire support man.
[2023-05-16] MEDS: metFORMIN HCl ER 500 MG TAB.ER.24H PO (17:10)
[2023-05-16 22:10] VITALS: BP 116/66; PULSE 95; TEMP 36.3
[2023-05-16] MEDS: Melatonin 3 MG TABLET 6 MG PO (22:21)
[2023-05-16] MEDS: LORazepam 1 MG TABLET PO (22:21)
[2023-05-16] MEDS: Atorvastatin Calcium 40 MG TABLET PO (22:22)
[2023-05-16] MEDS: traZODone HCL 50 MG TABLET PO (22:29)
[2023-05-17 00:47] VITALS: PULSE 75; RESP 20; O2SAT 92
[2023-05-17 06:00] VITALS: BP 138/94; PULSE 86; RESP 16; TEMP 36.8; O2SAT 94
[2023-05-17] MEDS: Furosemide 40 MG TABLET PO (11:31)
[2023-05-17] MEDS: Thiamine HCL 100 MG TABLET PO (11:31)
[2023-05-17] MEDS: Escitalopram Oxalate 20 MG TABLET PO (11:31)
[2023-05-17] MEDS: metFORMIN HCl 500 MG TABLET PO ×2 (11:32→22:19)
[2023-05-17] MEDS: LORazepam 1 MG TABLET PO ×2 (11:32→22:22)
[2023-05-17] MEDS: carvediloL 12.5 MG TABLET PO ×2 (11:32→22:24)
[2023-05-17] MEDS: Losartan Potassium 25 MG TABLET PO (11:32)
[2023-05-17] MEDS: Multivitamin TABLET 1 TAB PO (11:32)
--- NOTE | 2023-05-17 14:59 | PC.NURSE ---
lab called to report the GI panel hat was collected contained too much sample and must be recollected. This information was relayed to the pt. Pt reports they will not provide another sample as they gave one yesterday and today. provider notified.
[2023-05-17] MEDS: metFORMIN HCl ER 500 MG TAB.ER.24H PO (17:19)
[2023-05-17 22:00] VITALS: BP 123/67; PULSE 97; TEMP 36.4
[2023-05-17] MEDS: Atorvastatin Calcium 40 MG TABLET PO (22:20)
[2023-05-17] MEDS: Melatonin 3 MG TABLET 6 MG PO (22:20)
[2023-05-18 10:33] VITALS: BP 133/79; PULSE 94; RESP 16; TEMP 36.8; O2SAT 98
[2023-05-18] MEDS: Furosemide 40 MG TABLET PO (10:35)
[2023-05-18] MEDS: Thiamine HCL 100 MG TABLET PO (10:35)
[2023-05-18] MEDS: metFORMIN HCl 500 MG TABLET PO ×2 (10:35→21:35)
[2023-05-18] MEDS: carvediloL 12.5 MG TABLET PO ×2 (10:35→21:43)
[2023-05-18] MEDS: LORazepam 1 MG TABLET PO ×2 (10:35→21:35)
[2023-05-18] MEDS: Multivitamin TABLET 1 TAB PO (10:35)
[2023-05-18] MEDS: Escitalopram Oxalate 20 MG TABLET PO (10:35)
[2023-05-18] MEDS: Losartan Potassium 25 MG TABLET PO (10:35)
[2023-05-18] MEDS: Acetaminophen 325 MG TABLET 650 MG PO (12:42)
--- NOTE | 2023-05-18 15:52 | HO.PSYCHPN ---
Subjective Subjective Date of Service: 05/17/23 Reason For Visit: Recurrent major depression; Alcohol use disorder Subjective Notes: Conditional Voluntary and 3 Day Healthcare Proxy: No Guardianship: No Medical Problems Affecting Mental Status: No Interim History: Three day notice to 05/19/23. Pt discussed needing more in person interaction to assist him in maintaining sobriety. Discussed possible IOP resources, AA, Partial Hospital. Discussed benefits of each modality. 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 Reports investment in having a full treatment program, but I need to be able to work to support myself. Medication Compliance: Yes Side effects from medications: No Attending Groups: Yes Review of Systems Acute medical concerns: No Medical Review of Systems: unchanged Mental Status Exam Mental Status Exam Patient Appearance: Fatigued Patient Orientation: Person, Place, Time and Situation Level of Consciousness: Alert Patient Behavior: Appropriate, Talkative, Cooperative and Good Eye Contact Mood Description: Depressed Affect Description: Flat Patient Cognition Impaired: No Ability to Follow Directions: Good Speech Pattern: Spontaneous Speech Memory Description: Intact Diagnostics Vital Signs (24Hr): Vital Signs - 24 hr 05/17/23 22:00 05/18/23 10:33 Temperature 97.5 F 98.2 F Pulse Rate 97 94 Respiratory Rate 16 Blood Pressure 123/67 133/79 Pulse Oximetry 98 Oxygen Delivery Method Room Air BMI result Body Mass Index 59.3 Labs 05/13/23 01:56 05/14/23 19:58 Labs: Laboratory Results - last 48 hr 05/16/23 05/17/23 19:33 13:36 Stl C. cayetanensis PCR Cancelled Stool Rotavirus A PCR Cancelled Stl Adenov F 40/41 PCR Cancelled Stool Astrovirus (PCR) Cancelled Stool Campylobacter PCR Cancelled Stool Cryptosporidium PCR Cancelled Stl Sh Tox Pr E STEC PCR Cancelled Stool E coli O157 PCR Cancelled Stl Enterotoxigenic E PCR Cancelled Stool EPEC (PCR) Cancelled Stool EAEC (PCR) Cancelled Stl E. histolytica PCR Cancelled Stool Giardia Lamblia PCR Cancelled Stl P. shigelloides PCR Cancelled Stool Salmonella PCR Cancelled Stool Sapovirus (PCR) Cancelled Stl Shigella/EIEC PCR Cancelled St Y.enterocolitica PCR Cancelled Stool Vibrio (PCR) Cancelled Stl Vibrio cholerae PCR Cancelled Stl Norovirus GI/GII PCR Cancelled C. difficile Tox B Gene NEGATIVE Imaging Radiology Impressions: ITS Impressions Renal Ultrasound 05/15/23 14:07 IMPRESSION: Unremarkable examination. Medications Medications Current Medications Acetaminophen (Acetaminophen 325 Mg Tablet) 650 mg PO Q6H PRN PRN Reason: Headache/Pain Mild Scale (1-3) Last Admin: 05/18/23 12:42 Dose: 650 mg Al Hydroxide/Mg Hydroxide (Magnesium Hydrox/Alum Hydrox 30 Ml Oral.Susp) 30 ml PO Q6H PRN PRN Reason: Heartburn/Nausea Albuterol Sulfate (Albuterol Sulfate 90 Mcg 8 Gm Inhaler) 1 puff INHALE RQ4H PRN PRN Reason: Shortness Of Breath Atorvastatin Calcium (Atorvastatin Calcium 40 Mg Tablet) 40 mg PO BEDTIME TOBY Last Admin: 05/17/23 22:20 Dose: 40 mg Carvedilol (Carvedilol 12.5 Mg Tablet) 12.5 mg PO BID TOBY; Protocol Last Admin: 05/18/23 10:35 Dose: 12.5 mg Escitalopram Oxalate (Escitalopram Oxalate 20 Mg Tablet) 20 mg PO DAILY TOBY Last Admin: 05/18/23 10:35 Dose: 20 mg Furosemide (Furosemide 40 Mg Tablet) 40 mg PO DAILY TOBY; Protocol Last Admin: 05/18/23 10:35 Dose: 40 mg Hydroxyzine HCl (Hydroxyzine Hcl 50 Mg Tablet) 50 mg PO BID PRN PRN Reason: anxiety Last Admin: 05/13/23 08:09 Dose: 50 mg Hydroxyzine HCl (Hydroxyzine Hcl 25 Mg Tablet) 25 mg PO Q6H PRN PRN Reason: Anxiety Lidocaine (Lidocaine 4 % Patch Adh..Patch) 1 patch TRANSDERMA DAILY TOBY; Protocol Last Admin: 05/18/23 12:14 Dose: Not Given Loperamide HCl (Loperamide Hcl 2 Mg Capsule) 2 mg PO Q4H PRN PRN Reason: Diarrhea Last Admin: 05/17/23 11:39 Dose: 2 mg Lorazepam (Lorazepam 1 Mg Tablet) 1 mg PO Q4H PRN PRN Reason: Alcohol Withdrawal Lorazepam (Lorazepam 1 Mg Tablet) 1 mg PO BID TOBY Last Admin: 05/18/23 10:35 Dose: 1 mg Losartan Potassium (Losartan Potassium 25 Mg Tablet) 25 mg PO DAILY TOBY; Protocol Last Admin: 05/18/23 10:35 Dose: 25 mg Magnesium Hydroxide (Milk Of Magnesia 30 Ml Oral.Susp) 30 ml PO DAILY PRN PRN Reason: Constipation Melatonin (Melatonin 3 Mg Tablet) 6 mg PO BEDTIME PRN PRN Reason: Insomnia Last Admin: 05/17/23 22:20 Dose: 6 mg Metformin HCl (Metformin Hcl 500 Mg Tablet) 500 mg PO BID [facility] Last Admin: 05/18/23 10:35 Dose: 500 mg Metformin HCl (Metformin Hcl Er 500 Mg Tab.Er.24h) 500 mg PO DAILY@1700 [facility] Last Admin: 05/17/23 17:19 Dose: 500 mg Multivitamins/Vitamin C (Multivitamin Tablet) 1 tab PO DAILY [facility] Last Admin: 05/18/23 10:35 Dose: 1 tab Thiamine HCl (Thiamine Hcl 100 Mg Tablet) 100 mg PO DAILY [facility] Last Admin: 05/18/23 10:35 Dose: 100 mg Trazodone HCl (Trazodone Hcl 50 Mg Tablet) 50 mg PO BEDTIME MRX1 PRN PRN Reason: Insomnia Last Admin: 05/16/23 22:29 Dose: 50 mg Allergies Allergies Allergy/AdvReac Type Severity Reaction Status Date / Time No Known Allergies Allergy Verified 03/13/23 10:59 Assessment & Plan Assessment & Plan (1) MDD (major depressive disorder), recurrent episode, moderate: Status: Acute Code(s): F33.1 - Major depressive disorder, recurrent, moderate Assessment and Plan: 05/17/23- Continue current regime and plan of care. (2) Alcohol use disorder, severe, dependence: Status: Acute Code(s): F10.20 - Alcohol dependence, uncomplicated Assessment and Plan: 05/16: Increase Melatonin to 6 mg HS. Continue treatment plan. Plan 52-year-old male with history of hypertension, heart failure with reduced ejection fraction, TERRIE on CPAP, [id number] type 2 diabetes, severe alcohol use disorder, depression, anxiety, PTSD, and morbid obesity with BMI greater than 59 admitted to Psychiatry with consult placed to hospitalist evaluation of right flank pain, potassium supplementation. #Right flank pain -05/13, renal function normal, UA unremarkable -Will repeat UA today given associated dysuria to evaluate for infection or hematuria indicative of renal stone -Renal u/s pending which may not be diagnostic given patient's body habitus. However, suspicion right now for renal stones is low. If UA positive for hematuria, will consider CT of the abdomen/pelvis -Consider musculoskeletal etiology. Tylenol, lidocaine patches p.r.n. #Uncontrolled HTN -bp was controlled in ED, low suspicion for GABI. Will cancel renal doppler -Increase carvedilol to 12.5 mg b.i.d., continue losartan 25 mg, and furosemide 40 mg daily -potassium 4.4. Will discontinue KCl 10 mEq supplement as is likely not needed -Monitor blood pressures -Recheck BMP am #Acute diarrhea -single episode without recurrence -Above pain improved following BM. Consider IBS? Outpt follow up -ABd pain and diarrhea can also result from metformin 500mg BID to ER formulation Will continue to follow for results. Thank you for this consult. Patient educated on: medication risk/benefits, substance abuse and therapeutic strategies Informed Consent: understands and further education needed Reason for continued inpatient stay Substantial Risk for: harm to self and rapid decompensation Time Spent With Patient Time: Total time managing care of this patient today ____ minutes.
--- NOTE | 2023-05-18 15:52 | HO.PSYCHPN ---
Subjective Subjective Date of Service: 05/18/23 Reason For Visit: Recurrent major depression; Alcohol use disorder Subjective Notes: Conditional Voluntary and 3 Day (retracted) Healthcare Proxy: No Guardianship: No Medical Problems Affecting Mental Status: No Interim History: Retracted TDN to work with team on further aftercare planning and intervention. Reports anxiety at night. Agrees to med trials to assist in mgt. Medication Compliance: Yes Side effects from medications: No Review of Systems Acute medical concerns: No Medical Review of Systems: unchanged Mental Status Exam Mental Status Exam Patient Appearance: Fatigued Patient Orientation: Person, Place, Time and Situation Level of Consciousness: Alert Patient Behavior: Appropriate, Talkative, Cooperative and Good Eye Contact Mood Description: Depressed Affect Description: Flat Patient Cognition Impaired: No Ability to Follow Directions: Good Speech Pattern: Spontaneous Speech Memory Description: Intact Diagnostics Vital Signs (24Hr): Vital Signs - 24 hr 05/17/23 22:00 05/18/23 10:33 Temperature 97.5 F 98.2 F Pulse Rate 97 94 Respiratory Rate 16 Blood Pressure 123/67 133/79 Pulse Oximetry 98 Oxygen Delivery Method Room Air BMI result Body Mass Index 59.3 Labs 05/13/23 01:56 05/14/23 19:58 Labs: Laboratory Results - last 48 hr 05/16/23 05/17/23 19:33 13:36 Stl C. cayetanensis PCR Cancelled Stool Rotavirus A PCR Cancelled Stl Adenov F 40/41 PCR Cancelled Stool Astrovirus (PCR) Cancelled Stool Campylobacter PCR Cancelled Stool Cryptosporidium PCR Cancelled Stl Sh Tox Pr E STEC PCR Cancelled Stool E coli O157 PCR Cancelled Stl Enterotoxigenic E PCR Cancelled Stool EPEC (PCR) Cancelled Stool EAEC (PCR) Cancelled Stl E. histolytica PCR Cancelled Stool Giardia Lamblia PCR Cancelled Stl P. shigelloides PCR Cancelled Stool Salmonella PCR Cancelled Stool Sapovirus (PCR) Cancelled Stl Shigella/EIEC PCR Cancelled St Y.enterocolitica PCR Cancelled Stool Vibrio (PCR) Cancelled Stl Vibrio cholerae PCR Cancelled Stl Norovirus GI/GII PCR Cancelled C. difficile Tox B Gene NEGATIVE Imaging Radiology Impressions: ITS Impressions Renal Ultrasound 05/15/23 14:07 IMPRESSION: Unremarkable examination. Medications Medications Current Medications Acetaminophen (Acetaminophen 325 Mg Tablet) 650 mg PO Q6H PRN PRN Reason: Headache/Pain Mild Scale (1-3) Last Admin: 05/18/23 12:42 Dose: 650 mg Al Hydroxide/Mg Hydroxide (Magnesium Hydrox/Alum Hydrox 30 Ml Oral.Susp) 30 ml PO Q6H PRN PRN Reason: Heartburn/Nausea Albuterol Sulfate (Albuterol Sulfate 90 Mcg 8 Gm Inhaler) 1 puff INHALE RQ4H PRN PRN Reason: Shortness Of Breath Atorvastatin Calcium (Atorvastatin Calcium 40 Mg Tablet) 40 mg PO BEDTIME TOBY Last Admin: 05/17/23 22:20 Dose: 40 mg Carvedilol (Carvedilol 12.5 Mg Tablet) 12.5 mg PO BID TOBY; Protocol Last Admin: 05/18/23 10:35 Dose: 12.5 mg Escitalopram Oxalate (Escitalopram Oxalate 20 Mg Tablet) 20 mg PO DAILY TOBY Last Admin: 05/18/23 10:35 Dose: 20 mg Furosemide (Furosemide 40 Mg Tablet) 40 mg PO DAILY TOBY; Protocol Last Admin: 05/18/23 10:35 Dose: 40 mg Hydroxyzine HCl (Hydroxyzine Hcl 50 Mg Tablet) 50 mg PO BID PRN PRN Reason: anxiety Last Admin: 05/13/23 08:09 Dose: 50 mg Hydroxyzine HCl (Hydroxyzine Hcl 25 Mg Tablet) 25 mg PO Q6H PRN PRN Reason: Anxiety Lidocaine (Lidocaine 4 % Patch Adh..Patch) 1 patch TRANSDERMA DAILY TOBY; Protocol Last Admin: 05/18/23 12:14 Dose: Not Given Loperamide HCl (Loperamide Hcl 2 Mg Capsule) 2 mg PO Q4H PRN PRN Reason: Diarrhea Last Admin: 05/17/23 11:39 Dose: 2 mg Lorazepam (Lorazepam 1 Mg Tablet) 1 mg PO Q4H PRN PRN Reason: Alcohol Withdrawal Lorazepam (Lorazepam 1 Mg Tablet) 1 mg PO BID TOBY Last Admin: 05/18/23 10:35 Dose: 1 mg Losartan Potassium (Losartan Potassium 25 Mg Tablet) 25 mg PO DAILY TOBY; Protocol Last Admin: 05/18/23 10:35 Dose: 25 mg Magnesium Hydroxide (Milk Of Magnesia 30 Ml Oral.Susp) 30 ml PO DAILY PRN PRN Reason: Constipation Melatonin (Melatonin 3 Mg Tablet) 6 mg PO BEDTIME PRN PRN Reason: Insomnia Last Admin: 05/17/23 22:20 Dose: 6 mg Metformin HCl (Metformin Hcl 500 Mg Tablet) 500 mg PO BID [facility] Last Admin: 05/18/23 10:35 Dose: 500 mg Metformin HCl (Metformin Hcl Er 500 Mg Tab.Er.24h) 500 mg PO DAILY@1700 [facility] Last Admin: 05/17/23 17:19 Dose: 500 mg Multivitamins/Vitamin C (Multivitamin Tablet) 1 tab PO DAILY [facility] Last Admin: 05/18/23 10:35 Dose: 1 tab Thiamine HCl (Thiamine Hcl 100 Mg Tablet) 100 mg PO DAILY [facility] Last Admin: 05/18/23 10:35 Dose: 100 mg Trazodone HCl (Trazodone Hcl 50 Mg Tablet) 50 mg PO BEDTIME MRX1 PRN PRN Reason: Insomnia Last Admin: 05/16/23 22:29 Dose: 50 mg Allergies Allergies Allergy/AdvReac Type Severity Reaction Status Date / Time No Known Allergies Allergy Verified 03/13/23 10:59 Assessment & Plan Assessment & Plan (1) MDD (major depressive disorder), recurrent episode, moderate: Status: Acute Code(s): F33.1 - Major depressive disorder, recurrent, moderate (2) Alcohol use disorder, severe, dependence: Status: Acute Code(s): F10.20 - Alcohol dependence, uncomplicated Assessment and Plan: 05/16: Increase Melatonin to 6 mg HS. Continue treatment plan. 05/18/23: Gabapentin 300 mg HS for evening anxiety sx mgt. Plan 52-year-old male with history of hypertension, heart failure with reduced ejection fraction, TERRIE on CPAP, [id number] type 2 diabetes, severe alcohol use disorder, depression, anxiety, PTSD, and morbid obesity with BMI greater than 59 admitted to Psychiatry with consult placed to hospitalist evaluation of right flank pain, potassium supplementation. #Right flank pain -05/13, renal function normal, UA unremarkable -Will repeat UA today given associated dysuria to evaluate for infection or hematuria indicative of renal stone -Renal u/s pending which may not be diagnostic given patient's body habitus. However, suspicion right now for renal stones is low. If UA positive for hematuria, will consider CT of the abdomen/pelvis -Consider musculoskeletal etiology. Tylenol, lidocaine patches p.r.n. #Uncontrolled HTN -bp was controlled in ED, low suspicion for GABI. Will cancel renal doppler -Increase carvedilol to 12.5 mg b.i.d., continue losartan 25 mg, and furosemide 40 mg daily -potassium 4.4. Will discontinue KCl 10 mEq supplement as is likely not needed -Monitor blood pressures -Recheck BMP am #Acute diarrhea -single episode without recurrence -Above pain improved following BM. Consider IBS? Outpt follow up -ABd pain and diarrhea can also result from metformin 500mg BID to ER formulation Will continue to follow for results. Thank you for this consult. Patient educated on: therapeutic strategies Informed Consent: understands Reason for continued inpatient stay Substantial Risk for: rapid decompensation Time Spent With Patient Time: Total time managing care of this patient today ____ minutes.
[2023-05-18] MEDS: metFORMIN HCl ER 500 MG TAB.ER.24H PO (16:45)
[2023-05-18 16:48] VITALS: BP 116/88; PULSE 82; TEMP 36.1; O2SAT 93
[2023-05-18] MEDS: Gabapentin 300 MG CAPSULE PO (21:35)
[2023-05-18] MEDS: Atorvastatin Calcium 40 MG TABLET PO (21:35)
[2023-05-18] MEDS: Melatonin 3 MG TABLET 6 MG PO (21:40)
[2023-05-19 08:30] VITALS: BP 112/72; PULSE 72; RESP 12; TEMP 36.9; O2SAT 95
[2023-05-19] MEDS: carvediloL 12.5 MG TABLET PO ×2 (09:18→20:26)
[2023-05-19] MEDS: Thiamine HCL 100 MG TABLET PO (09:18)
[2023-05-19] MEDS: Escitalopram Oxalate 20 MG TABLET PO (09:19)
[2023-05-19] MEDS: LORazepam 1 MG TABLET PO ×2 (09:19→20:26)
[2023-05-19] MEDS: Losartan Potassium 25 MG TABLET PO (09:19)
[2023-05-19] MEDS: Multivitamin TABLET 1 TAB PO (09:19)
[2023-05-19] MEDS: metFORMIN HCl 500 MG TABLET PO ×2 (09:20→20:26)
[2023-05-19] MEDS: Furosemide 40 MG TABLET PO (09:20)
--- NOTE | 2023-05-19 13:08 | PC.NURSE ---
signed 3 day notice on 05/19/23. up 05/24
[2023-05-19] MEDS: metFORMIN HCl ER 500 MG TAB.ER.24H PO (16:43)
[2023-05-19 17:39] VITALS: BP 118/56; PULSE 82; RESP 18; TEMP 36.4; O2SAT 93
--- NOTE | 2023-05-19 20:12 | HO.PSYCHPN ---
Subjective Subjective Date of Service: 05/19/23 Reason For Visit: Recurrent major depression; Alcohol use disorder Subjective Notes: Conditional Voluntary Interim History: Pt reports feeling better. He continues to report feeling tired and worried about my kidneys. He has been taking medications as prescribed, more visible in the afternoon and social with select peers. He denies SI/HI. No VH/AH. Medication Compliance: Yes Review of Systems Review of Systems General: No fevers, malaise, unintentional weight loss Cardiovascular: No chest pain, palpitations, or leg edema Respiratory: No shortness of breath, wheezing, cough GI: No abdominal pain, nausea, vomiting, diarrhea, constipation, melena, hematochezia : +dysuria. No hematuria, increased urinary frequency, decreased urinary output MSK: No myalgia, back pain. +R flank pain Neuro: No headaches, weakness, paresthesias Skin: No rashes or lesions Constitutional: Reports difficulty sleeping and Reports poor appetite Eyes: Reports no additional eye complaints Reports system reviewed and no additional complaints, except as documented Cardiovascular: Reports no additional cardiovascular complaints Respiratory: Reports no additional respiratory complaints Gastrointestinal: Reports no additional gastrointestinal complaints Genitourinary: Reports no additional male genitourinary complaints Musculoskeletal: Reports no additional musculoskeletal complaints Skin/Breast: Reports system reviewed and no additional complaints, except as docu Reports system reviewed and no additional complaints, except as documented and Reports behavioral changes Psychiatric: Reports abnormal sleep pattern, Reports behavioral changes, Reports depression, Reports difficulty concentrating, Reports hopelessness, Reports anhedonia and Reports suicidal ideation Endocrine: Reports no additional endocrine complaints Hematologic/Lymphatic: Reports no additional hematologic/lymphatic complaints Allergic/Immunologic: Reports no additional allergic/immunologic complaints Mental Status Exam Mental Status Exam Patient Appearance: Fatigued Patient Orientation: Person, Place, Time and Situation Level of Consciousness: Alert Patient Behavior: Appropriate, Talkative, Cooperative and Good Eye Contact Mood Description: Depressed Affect Description: Flat Patient Cognition Impaired: No Ability to Follow Directions: Good Speech Pattern: Spontaneous Speech Memory Description: Intact Diagnostics Vital Signs (24Hr): Vital Signs - 24 hr 05/19/23 08:30 05/19/23 17:39 Temperature 98.4 F 97.6 F Pulse Rate 72 82 Respiratory Rate 12 18 Blood Pressure 112/72 118/56 L Pulse Oximetry 95 93 Oxygen Delivery Method Room Air Room Air BMI result Body Mass Index 59.3 Labs 05/13/23 01:56 05/14/23 19:58 Imaging Radiology Impressions: ITS Impressions Renal Ultrasound 05/15/23 14:07 IMPRESSION: Unremarkable examination. Medications Medications Current Medications Acetaminophen (Acetaminophen 325 Mg Tablet) 650 mg PO Q6H PRN PRN Reason: Headache/Pain Mild Scale (1-3) Last Admin: 05/18/23 12:42 Dose: 650 mg Al Hydroxide/Mg Hydroxide (Magnesium Hydrox/Alum Hydrox 30 Ml Oral.Susp) 30 ml PO Q6H PRN PRN Reason: Heartburn/Nausea Albuterol Sulfate (Albuterol Sulfate 90 Mcg 8 Gm Inhaler) 1 puff INHALE RQ4H PRN PRN Reason: Shortness Of Breath Atorvastatin Calcium (Atorvastatin Calcium 40 Mg Tablet) 40 mg PO BEDTIME TOBY Last Admin: 05/18/23 21:35 Dose: 40 mg Carvedilol (Carvedilol 12.5 Mg Tablet) 12.5 mg PO BID TOBY; Protocol Last Admin: 05/19/23 09:18 Dose: 12.5 mg Escitalopram Oxalate (Escitalopram Oxalate 20 Mg Tablet) 20 mg PO DAILY TOBY Last Admin: 05/19/23 09:19 Dose: 20 mg Furosemide (Furosemide 40 Mg Tablet) 40 mg PO DAILY TOBY; Protocol Last Admin: 05/19/23 09:20 Dose: 40 mg Gabapentin (Gabapentin 300 Mg Capsule) 300 mg PO BEDTIME TOBY Last Admin: 05/18/23 21:35 Dose: 300 mg Hydroxyzine HCl (Hydroxyzine Hcl 50 Mg Tablet) 50 mg PO BID PRN PRN Reason: anxiety Last Admin: 05/13/23 08:09 Dose: 50 mg Hydroxyzine HCl (Hydroxyzine Hcl 25 Mg Tablet) 25 mg PO Q6H PRN PRN Reason: Anxiety Lidocaine (Lidocaine 4 % Patch Adh..Patch) 1 patch TRANSDERMA DAILY TOBY; Protocol Last Admin: 05/19/23 09:20 Dose: Not Given Loperamide HCl (Loperamide Hcl 2 Mg Capsule) 2 mg PO Q4H PRN PRN Reason: Diarrhea Last Admin: 05/17/23 11:39 Dose: 2 mg Lorazepam (Lorazepam 1 Mg Tablet) 1 mg PO Q4H PRN PRN Reason: Alcohol Withdrawal Lorazepam (Lorazepam 1 Mg Tablet) 1 mg PO BID TOBY Last Admin: 05/19/23 09:19 Dose: 1 mg Losartan Potassium (Losartan Potassium 25 Mg Tablet) 25 mg PO DAILY [facility]; Protocol Last Admin: 05/19/23 09:19 Dose: 25 mg Magnesium Hydroxide (Milk Of Magnesia 30 Ml Oral.Susp) 30 ml PO DAILY PRN PRN Reason: Constipation Melatonin (Melatonin 3 Mg Tablet) 6 mg PO BEDTIME PRN PRN Reason: Insomnia Last Admin: 05/18/23 21:40 Dose: 6 mg Metformin HCl (Metformin Hcl 500 Mg Tablet) 500 mg PO BID [facility] Last Admin: 05/19/23 09:20 Dose: 500 mg Metformin HCl (Metformin Hcl Er 500 Mg Tab.Er.24h) 500 mg PO DAILY@1700 [facility] Last Admin: 05/19/23 16:43 Dose: 500 mg Multivitamins/Vitamin C (Multivitamin Tablet) 1 tab PO DAILY [facility] Last Admin: 05/19/23 09:19 Dose: 1 tab Thiamine HCl (Thiamine Hcl 100 Mg Tablet) 100 mg PO DAILY [facility] Last Admin: 05/19/23 09:18 Dose: 100 mg Trazodone HCl (Trazodone Hcl 50 Mg Tablet) 50 mg PO BEDTIME MRX1 PRN PRN Reason: Insomnia Last Admin: 05/16/23 22:29 Dose: 50 mg Allergies Allergies Allergy/AdvReac Type Severity Reaction Status Date / Time No Known Allergies Allergy Verified 03/13/23 10:59 Assessment & Plan Assessment & Plan (1) MDD (major depressive disorder), recurrent episode, moderate: Status: Acute Code(s): F33.1 - Major depressive disorder, recurrent, moderate (2) Alcohol use disorder, severe, dependence: Status: Acute Code(s): F10.20 - Alcohol dependence, uncomplicated Assessment and Plan: 05/16: Increase Melatonin to 6 mg HS. Continue treatment plan. 05/18/23: Gabapentin 300 mg HS for evening anxiety sx mgt. Plan 52-year-old male with history of hypertension, heart failure with reduced ejection fraction, TERRIE on CPAP, [id number] type 2 diabetes, severe alcohol use disorder, depression, anxiety, PTSD, and morbid obesity with BMI greater than 59 admitted to Psychiatry with consult placed to hospitalist evaluation of right flank pain, potassium supplementation. #Right flank pain -05/13, renal function normal, UA unremarkable -Will repeat UA today given associated dysuria to evaluate for infection or hematuria indicative of renal stone -Renal u/s pending which may not be diagnostic given patient's body habitus. However, suspicion right now for renal stones is low. If UA positive for hematuria, will consider CT of the abdomen/pelvis -Consider musculoskeletal etiology. Tylenol, lidocaine patches p.r.n. #Uncontrolled HTN -bp was controlled in ED, low suspicion for GABI. Will cancel renal doppler -Increase carvedilol to 12.5 mg b.i.d., continue losartan 25 mg, and furosemide 40 mg daily -potassium 4.4. Will discontinue KCl 10 mEq supplement as is likely not needed -Monitor blood pressures -Recheck BMP am #Acute diarrhea -single episode without recurrence -Above pain improved following BM. Consider IBS? Outpt follow up -ABd pain and diarrhea can also result from metformin 500mg BID to ER formulation Will continue to follow for results. Thank you for this consult. PSYCH 05/19 continue tx. Reason for continued inpatient stay Substantial Risk for: inability to function Time Spent With Patient Time: Total time managing care of this patient today ____ minutes.
[2023-05-19] MEDS: Melatonin 3 MG TABLET 6 MG PO (20:25)
[2023-05-19] MEDS: Atorvastatin Calcium 40 MG TABLET PO (20:25)
[2023-05-19] MEDS: Gabapentin 300 MG CAPSULE PO (20:26)
[2023-05-20 05:46] VITALS: RESP 18
--- NOTE | 2023-05-20 10:09 | HO.PSYCHPN ---
Subjective Subjective Date of Service: 05/20/23 Reason For Visit: Recurrent major depression; Alcohol use disorder Subjective Notes: Conditional Voluntary Healthcare Proxy: No Guardianship: No Medical Problems Affecting Mental Status: No Interim History: 52 yo repoting doing as ok as can be back on lexapro - no ill toward effects of medication- slept- denying current si/hi/psychosis- or cravings or withdrawl has waves of anxiety through out the day, sometimes worse in pm, depression a bit better- Medication Compliance: Yes Side effects from medications: No Attending Groups: Yes Review of Systems Acute medical concerns: No Medical Review of Systems: unchanged Mental Status Exam Mental Status Exam Narrative: morbidly obese in terry, very cooperative not wanting to separate from his group playing cards to talk to me but nicely turned his chair toward me Patient Appearance: Appropriate Patient Orientation: Person, Place, Time and Situation Level of Consciousness: Awake and Appropriate Patient Behavior: Appropriate and Cooperative Mood Description: Calm and Anxious (reports this) Affect Description: Calm Patient Cognition Impaired: No Ability to Follow Directions: Good Speech Pattern: Clear Hallucinations: None Delusions: Not Present Thought Process: Intact and Goal Oriented Thought Content: positive for Intact Depressive Symptoms: Increased Anxiety, Muscle Tension and Loss of Energy Judgement: Good Diagnostics Vital Signs (24Hr): Vital Signs - 24 hr 05/19/23 17:39 05/20/23 05:46 Temperature 97.6 F Pulse Rate 82 Respiratory Rate 18 18 Blood Pressure 118/56 L Pulse Oximetry 93 Oxygen Delivery Method Room Air BMI result Body Mass Index 59.3 Labs 05/13/23 01:56 05/14/23 19:58 Imaging Radiology Impressions: ITS Impressions Renal Ultrasound 05/15/23 14:07 IMPRESSION: Unremarkable examination. Medications Medications Current Medications Acetaminophen (Acetaminophen 325 Mg Tablet) 650 mg PO Q6H PRN PRN Reason: Headache/Pain Mild Scale (1-3) Last Admin: 05/18/23 12:42 Dose: 650 mg Al Hydroxide/Mg Hydroxide (Magnesium Hydrox/Alum Hydrox 30 Ml Oral.Susp) 30 ml PO Q6H PRN PRN Reason: Heartburn/Nausea Albuterol Sulfate (Albuterol Sulfate 90 Mcg 8 Gm Inhaler) 1 puff INHALE RQ4H PRN PRN Reason: Shortness Of Breath Atorvastatin Calcium (Atorvastatin Calcium 40 Mg Tablet) 40 mg PO BEDTIME [facility] Last Admin: 05/19/23 20:25 Dose: 40 mg Carvedilol (Carvedilol 12.5 Mg Tablet) 12.5 mg PO BID [facility]; Protocol Last Admin: 05/19/23 20:26 Dose: 12.5 mg Escitalopram Oxalate (Escitalopram Oxalate 20 Mg Tablet) 20 mg PO DAILY [facility] Last Admin: 05/19/23 09:19 Dose: 20 mg Furosemide (Furosemide 40 Mg Tablet) 40 mg PO DAILY [facility]; Protocol Last Admin: 05/19/23 09:20 Dose: 40 mg Gabapentin (Gabapentin 300 Mg Capsule) 300 mg PO BEDTIME [facility] Last Admin: 05/19/23 20:26 Dose: 300 mg Hydroxyzine HCl (Hydroxyzine Hcl 50 Mg Tablet) 50 mg PO BID PRN PRN Reason: anxiety Last Admin: 05/13/23 08:09 Dose: 50 mg Hydroxyzine HCl (Hydroxyzine Hcl 25 Mg Tablet) 25 mg PO Q6H PRN PRN Reason: Anxiety Lidocaine (Lidocaine 4 % Patch Adh..Patch) 1 patch TRANSDERMA DAILY [facility]; Protocol Last Admin: 05/19/23 09:20 Dose: Not Given Loperamide HCl (Loperamide Hcl 2 Mg Capsule) 2 mg PO Q4H PRN PRN Reason: Diarrhea Last Admin: 05/17/23 11:39 Dose: 2 mg Lorazepam (Lorazepam 1 Mg Tablet) 1 mg PO Q4H PRN PRN Reason: Alcohol Withdrawal Lorazepam (Lorazepam 1 Mg Tablet) 1 mg PO BID [facility] Last Admin: 05/19/23 20:26 Dose: 1 mg Losartan Potassium (Losartan Potassium 25 Mg Tablet) 25 mg PO DAILY [facility]; Protocol Last Admin: 05/19/23 09:19 Dose: 25 mg Magnesium Hydroxide (Milk Of Magnesia 30 Ml Oral.Susp) 30 ml PO DAILY PRN PRN Reason: Constipation Melatonin (Melatonin 3 Mg Tablet) 6 mg PO BEDTIME PRN PRN Reason: Insomnia Last Admin: 05/19/23 20:25 Dose: 6 mg Metformin HCl (Metformin Hcl 500 Mg Tablet) 500 mg PO BID [facility] Last Admin: 05/19/23 20:26 Dose: 500 mg Metformin HCl (Metformin Hcl Er 500 Mg Tab.Er.24h) 500 mg PO DAILY@1700 [facility] Last Admin: 05/19/23 16:43 Dose: 500 mg Multivitamins/Vitamin C (Multivitamin Tablet) 1 tab PO DAILY [facility] Last Admin: 05/19/23 09:19 Dose: 1 tab Thiamine HCl (Thiamine Hcl 100 Mg Tablet) 100 mg PO DAILY [facility] Last Admin: 05/19/23 09:18 Dose: 100 mg Trazodone HCl (Trazodone Hcl 50 Mg Tablet) 50 mg PO BEDTIME MRX1 PRN PRN Reason: Insomnia Last Admin: 05/16/23 22:29 Dose: 50 mg Allergies Allergies Allergy/AdvReac Type Severity Reaction Status Date / Time No Known Allergies Allergy Verified 03/13/23 10:59 Assessment & Plan Assessment & Plan (1) MDD (major depressive disorder), recurrent episode, moderate: Status: Acute Code(s): F33.1 - Major depressive disorder, recurrent, moderate (2) Alcohol use disorder, severe, dependence: Status: Acute Code(s): F10.20 - Alcohol dependence, uncomplicated Assessment and Plan: 05/16: Increase Melatonin to 6 mg HS. Continue treatment plan. 05/18/23: Gabapentin 300 mg HS for evening anxiety sx mgt. Plan 52-year-old male with history of hypertension, heart failure with reduced ejection fraction, TERRIE on CPAP, [id number] type 2 diabetes, severe alcohol use disorder, depression, anxiety, PTSD, and morbid obesity with BMI greater than 59 admitted to Psychiatry with consult placed to hospitalist evaluation of right flank pain, potassium supplementation. #Right flank pain -05/13, renal function normal, UA unremarkable -Will repeat UA today given associated dysuria to evaluate for infection or hematuria indicative of renal stone -Renal u/s pending which may not be diagnostic given patient's body habitus. However, suspicion right now for renal stones is low. If UA positive for hematuria, will consider CT of the abdomen/pelvis -Consider musculoskeletal etiology. Tylenol, lidocaine patches p.r.n. #Uncontrolled HTN -bp was controlled in ED, low suspicion for GABI. Will cancel renal doppler -Increase carvedilol to 12.5 mg b.i.d., continue losartan 25 mg, and furosemide 40 mg daily -potassium 4.4. Will discontinue KCl 10 mEq supplement as is likely not needed -Monitor blood pressures -Recheck BMP am #Acute diarrhea -single episode without recurrence -Above pain improved following BM. Consider IBS? Outpt follow up -ABd pain and diarrhea can also result from metformin 500mg BID to ER formulation Will continue to follow for results. Thank you for this consult. PSYCH 05/19 continue tx 05/20 no change to plan . Guardian/Caregiver educated on: medication risk/benefits Informed Consent: understands Reason for continued inpatient stay Substantial Risk for: rapid decompensation Time Spent With Patient Time: Total time managing care of this patient today ____ minutes.
--- NOTE | 2023-05-20 10:27 | PC.NURSE ---
pt slept through [facility]. i will come to you when Im ready . 9am medications not given before 10am.
[2023-05-20 10:29] VITALS: BP 139/85; PULSE 84; RESP 16; TEMP 36.7; O2SAT 94
[2023-05-20] MEDS: LORazepam 1 MG TABLET PO ×2 (10:31→21:56)
[2023-05-20] MEDS: metFORMIN HCl 500 MG TABLET PO ×2 (10:31→21:56)
[2023-05-20] MEDS: Multivitamin TABLET 1 TAB PO (10:31)
[2023-05-20] MEDS: Losartan Potassium 25 MG TABLET PO (10:31)
[2023-05-20] MEDS: carvediloL 12.5 MG TABLET PO ×2 (10:31→21:56)
[2023-05-20] MEDS: Furosemide 40 MG TABLET PO (10:31)
[2023-05-20] MEDS: Escitalopram Oxalate 20 MG TABLET PO (10:31)
[2023-05-20] MEDS: Thiamine HCL 100 MG TABLET PO (10:31)
[2023-05-20] MEDS: metFORMIN HCl ER 500 MG TAB.ER.24H PO (16:06)
[2023-05-20 18:00] VITALS: BP 128/63; PULSE 84; TEMP 36.2; O2SAT 99
[2023-05-20] MEDS: Atorvastatin Calcium 40 MG TABLET PO (21:56)
[2023-05-20] MEDS: Gabapentin 300 MG CAPSULE PO (21:57)
[2023-05-20] MEDS: Melatonin 3 MG TABLET 6 MG PO (22:00)
[2023-05-20 23:50] VITALS: RESP 16
[2023-05-21 06:00] VITALS: BP 134/72; PULSE 76; RESP 16; TEMP 36.9; O2SAT 99
[2023-05-21] MEDS: Acetaminophen 325 MG TABLET 650 MG PO ×2 (08:37→16:54)
[2023-05-21] MEDS: LORazepam 1 MG TABLET PO ×2 (09:00→22:08)
[2023-05-21] MEDS: Escitalopram Oxalate 20 MG TABLET PO (09:00)
[2023-05-21] MEDS: metFORMIN HCl 500 MG TABLET PO ×2 (09:00→22:07)
[2023-05-21] MEDS: Thiamine HCL 100 MG TABLET PO (09:01)
[2023-05-21] MEDS: carvediloL 12.5 MG TABLET PO ×2 (09:01→22:07)
[2023-05-21] MEDS: Losartan Potassium 25 MG TABLET PO (09:01)
[2023-05-21] MEDS: Multivitamin TABLET 1 TAB PO (09:01)
[2023-05-21] MEDS: Furosemide 40 MG TABLET PO (09:01)
[2023-05-21 09:14] LABS: Estimated Glomerular Filt Rate > 60
--- NOTE | 2023-05-21 10:18 | HO.PSYCHPN ---
Subjective Subjective Date of Service: 05/21/23 Reason For Visit: Recurrent major depression; Alcohol use disorder Subjective Notes: Conditional Voluntary Healthcare Proxy: No Guardianship: No Medical Problems Affecting Mental Status: No Interim History: Pt reports having mouth pain- thinks it is tooth related- ongoing depression/anxiety with some passive si - no planning Medication Compliance: Yes Side effects from medications: No Attending Groups: Intermittent Review of Systems Acute medical concerns: No Medical Review of Systems: unchanged Mental Status Exam Mental Status Exam Patient Appearance: Perspiring and Unkempt Patient Orientation: Person, Place, Time and Situation Level of Consciousness: Awake Patient Behavior: Appropriate, Dependent and Passive Behavior Comments: annoyed about being asked to bathe when nothing to change into that fits him Mood Description: Calm and Constricted Affect Description: Depressed Patient Cognition Impaired: No Ability to Follow Directions: Good Speech Pattern: Clear Hallucinations: None Delusions: Not Present Thought Process: Intact and Goal Oriented Thought Content: positive for Intact Depressive Symptoms: Loss of Energy Judgement: Fair Diagnostics Vital Signs (24Hr): Vital Signs - 24 hr 05/20/23 10:29 05/20/23 18:00 05/20/23 23:50 Temperature 98.1 F 97.1 F Pulse Rate 84 84 Respiratory Rate 16 16 Blood Pressure 139/85 128/63 Pulse Oximetry 94 99 Oxygen Delivery Method Room Air Room Air BMI result Body Mass Index 59.3 Labs 05/13/23 01:56 05/21/23 08:59 Labs: Laboratory Results - last 48 hr 05/21/23 08:59 Creatinine 0.64 Estim Creat Clear Calc 239.0 Estimated GFR > 60 Imaging Radiology Impressions: ITS Impressions Renal Ultrasound 05/15/23 14:07 IMPRESSION: Unremarkable examination. Medications Medications Current Medications Acetaminophen (Acetaminophen 325 Mg Tablet) 650 mg PO Q6H PRN PRN Reason: Headache/Pain Mild Scale (1-3) Last Admin: 05/21/23 08:37 Dose: 650 mg Al Hydroxide/Mg Hydroxide (Magnesium Hydrox/Alum Hydrox 30 Ml Oral.Susp) 30 ml PO Q6H PRN PRN Reason: Heartburn/Nausea Albuterol Sulfate (Albuterol Sulfate 90 Mcg 8 Gm Inhaler) 1 puff INHALE RQ4H PRN PRN Reason: Shortness Of Breath Atorvastatin Calcium (Atorvastatin Calcium 40 Mg Tablet) 40 mg PO BEDTIME [facility] Last Admin: 05/20/23 21:56 Dose: 40 mg Carvedilol (Carvedilol 12.5 Mg Tablet) 12.5 mg PO BID [facility]; Protocol Last Admin: 05/21/23 09:01 Dose: 12.5 mg Escitalopram Oxalate (Escitalopram Oxalate 20 Mg Tablet) 20 mg PO DAILY TO[facility] Last Admin: 05/21/23 09:00 Dose: 20 mg Furosemide (Furosemide 40 Mg Tablet) 40 mg PO DAILY [facility]; Protocol Last Admin: 05/21/23 09:01 Dose: 40 mg Gabapentin (Gabapentin 300 Mg Capsule) 300 mg PO BEDTIME [facility] Last Admin: 05/20/23 21:57 Dose: 300 mg Hydroxyzine HCl (Hydroxyzine Hcl 50 Mg Tablet) 50 mg PO BID PRN PRN Reason: anxiety Last Admin: 05/13/23 08:09 Dose: 50 mg Hydroxyzine HCl (Hydroxyzine Hcl 25 Mg Tablet) 25 mg PO Q6H PRN PRN Reason: Anxiety Lidocaine (Lidocaine 4 % Patch Adh..Patch) 1 patch TRANSDERMA DAILY [facility]; Protocol Last Admin: 05/21/23 09:59 Dose: Not Given Loperamide HCl (Loperamide Hcl 2 Mg Capsule) 2 mg PO Q4H PRN PRN Reason: Diarrhea Last Admin: 05/17/23 11:39 Dose: 2 mg Lorazepam (Lorazepam 1 Mg Tablet) 1 mg PO Q4H PRN PRN Reason: Alcohol Withdrawal Lorazepam (Lorazepam 1 Mg Tablet) 1 mg PO BID [facility] Last Admin: 05/21/23 09:00 Dose: 1 mg Losartan Potassium (Losartan Potassium 25 Mg Tablet) 25 mg PO DAILY [facility]; Protocol Last Admin: 05/21/23 09:01 Dose: 25 mg Magnesium Hydroxide (Milk Of Magnesia 30 Ml Oral.Susp) 30 ml PO DAILY PRN PRN Reason: Constipation Melatonin (Melatonin 3 Mg Tablet) 6 mg PO BEDTIME PRN PRN Reason: Insomnia Last Admin: 05/20/23 22:00 Dose: 6 mg Metformin HCl (Metformin Hcl 500 Mg Tablet) 500 mg PO BID [facility] Last Admin: 05/21/23 09:00 Dose: 500 mg Metformin HCl (Metformin Hcl Er 500 Mg Tab.Er.24h) 500 mg PO DAILY@1700 [facility] Last Admin: 05/20/23 16:06 Dose: 500 mg Multivitamins/Vitamin C (Multivitamin Tablet) 1 tab PO DAILY [facility] Last Admin: 05/21/23 09:01 Dose: 1 tab Thiamine HCl (Thiamine Hcl 100 Mg Tablet) 100 mg PO DAILY [facility] Last Admin: 05/21/23 09:01 Dose: 100 mg Trazodone HCl (Trazodone Hcl 50 Mg Tablet) 50 mg PO BEDTIME MRX1 PRN PRN Reason: Insomnia Last Admin: 05/16/23 22:29 Dose: 50 mg Allergies Allergies Allergy/AdvReac Type Severity Reaction Status Date / Time No Known Allergies Allergy Verified 03/13/23 10:59 Assessment & Plan Assessment & Plan (1) MDD (major depressive disorder), recurrent episode, moderate: Status: Acute Code(s): F33.1 - Major depressive disorder, recurrent, moderate (2) Alcohol use disorder, severe, dependence: Status: Acute Code(s): F10.20 - Alcohol dependence, uncomplicated Assessment and Plan: 05/16: Increase Melatonin to 6 mg HS. Continue treatment plan. 05/18/23: Gabapentin 300 mg HS for evening anxiety sx mgt. Plan 52-year-old male with history of hypertension, heart failure with reduced ejection fraction, TERRIE on CPAP, [id number] type 2 diabetes, severe alcohol use disorder, depression, anxiety, PTSD, and morbid obesity with BMI greater than 59 admitted to Psychiatry with consult placed to hospitalist evaluation of right flank pain, potassium supplementation. #Right flank pain -05/13, renal function normal, UA unremarkable -Will repeat UA today given associated dysuria to evaluate for infection or hematuria indicative of renal stone -Renal u/s pending which may not be diagnostic given patient's body habitus. However, suspicion right now for renal stones is low. If UA positive for hematuria, will consider CT of the abdomen/pelvis -Consider musculoskeletal etiology. Tylenol, lidocaine patches p.r.n. #Uncontrolled HTN -bp was controlled in ED, low suspicion for GABI. Will cancel renal doppler -Increase carvedilol to 12.5 mg b.i.d., continue losartan 25 mg, and furosemide 40 mg daily -potassium 4.4. Will discontinue KCl 10 mEq supplement as is likely not needed -Monitor blood pressures -Recheck BMP am #Acute diarrhea -single episode without recurrence -Above pain improved following BM. Consider IBS? Outpt follow up -ABd pain and diarrhea can also result from metformin 500mg BID to ER formulation Will continue to follow for results. Thank you for this consult. PSYCH 05/19 continue tx 05/20 no change to plan . 05/21 ibuprofen and oragel for tooth/mouth pain, pt doesnt want med change for mood/anxiety needs assistance getting appropriate clothing for ADLS Patient educated on: other Informed Consent: understands Reason for continued inpatient stay Substantial Risk for: harm to self and rapid decompensation Time Spent With Patient Time: Total time managing care of this patient today ____ minutes.
[2023-05-21] MEDS: metFORMIN HCl ER 500 MG TAB.ER.24H PO (16:47)
[2023-05-21 19:55] VITALS: BP 134/64; PULSE 84; RESP 18; TEMP 36.4; O2SAT 93
[2023-05-21] MEDS: Gabapentin 300 MG CAPSULE PO (22:07)
[2023-05-21] MEDS: Atorvastatin Calcium 40 MG TABLET PO (22:07)
[2023-05-21] MEDS: Melatonin 3 MG TABLET 6 MG PO (22:10)
[2023-05-22] MEDS: metFORMIN HCl 500 MG TABLET PO ×2 (08:34→19:52)
[2023-05-22] MEDS: LORazepam 1 MG TABLET PO ×2 (08:35→19:51)
[2023-05-22] MEDS: Losartan Potassium 25 MG TABLET PO (08:35)
[2023-05-22] MEDS: Escitalopram Oxalate 20 MG TABLET PO (08:35)
[2023-05-22] MEDS: Multivitamin TABLET 1 TAB PO (08:35)
[2023-05-22] MEDS: Thiamine HCL 100 MG TABLET PO (08:35)
[2023-05-22] MEDS: Furosemide 40 MG TABLET PO (08:35)
[2023-05-22] MEDS: carvediloL 12.5 MG TABLET PO ×2 (08:35→19:51)
[2023-05-22 09:00] VITALS: BP 120/59; PULSE 68; RESP 18; TEMP 35.7; O2SAT 98
[2023-05-22 16:35] VITALS: BP 131/72; PULSE 84; RESP 16; TEMP 36.3; O2SAT 95
[2023-05-22] MEDS: hydrOXYzine HCL 50 MG TABLET PO (17:07)
[2023-05-22] MEDS: metFORMIN HCl ER 500 MG TAB.ER.24H PO (17:07)
--- NOTE | 2023-05-22 19:49 | P.PNPSI_ITS ---
Subjective Subjective Date of Service: 05/22/23 Reason For Visit: Recurrent major depression; Alcohol use disorder Subjective Notes: Conditional Voluntary and 3 Day Healthcare Proxy: No Guardianship: No Medical Problems Affecting Mental Status: No Interim History: Pt reports feeling improved. Discussed concerns from [facility] as they spoke with [facility] [place]. They report if he returns to apt he tends to isolate- uses [employer] for alcohol. They report he is a poor communicator, does not follow up and they see him as high risk. Pt agrees with their assessment. He has made contact with [facility] and hopes for acceptance this week. He is willing to attend a 30 day program if he will be allowed to keep his apartment. He is willing to do IOP with [facility] and states he will take other suggestions. Medication Compliance: Yes Side effects from medications: No Attending Groups: Yes Review of Systems Acute medical concerns: No Medical Review of Systems: unchanged Mental Status Exam Mental Status Exam Patient Appearance: Appropriate Patient Orientation: Person, Place, Time and Situation Level of Consciousness: Alert Patient Behavior: Talkative and Good Eye Contact Mood Description: Constricted Affect Description: Constricted Ability to Follow Directions: Good Speech Pattern: Spontaneous Speech Memory Description: Intact Hallucinations: None Delusions: Not Present Perceptual Disturbances: Derealization Thought Process: Goal Oriented Thought Content: positive for Goal Oriented Judgement: Good Diagnostics Vital Signs (24Hr): Vital Signs - 24 hr 05/21/23 19:55 05/22/23 09:00 05/22/23 16:35 Temperature 97.6 F 96.3 F L 97.3 F Pulse Rate 84 68 84 Respiratory Rate 18 18 16 Blood Pressure 134/64 120/59 L 131/72 Pulse Oximetry 93 98 95 Oxygen Delivery Method Room Air Room Air Room Air BMI result Body Mass Index 59.3 Labs 05/13/23 01:56 05/21/23 08:59 Labs: Laboratory Results - last 48 hr 05/21/23 05/21/23 08:59 20:09 Creatinine 0.64 Estim Creat Clear Calc 239.0 Estimated GFR > 60 POC Glucose 177 H Imaging Radiology Impressions: ITS Impressions Renal Ultrasound 05/15/23 14:07 IMPRESSION: Unremarkable examination. Medications Medications Current Medications Acetaminophen (Acetaminophen 325 Mg Tablet) 650 mg PO Q6H PRN PRN Reason: Headache/Pain Mild Scale (1-3) Last Admin: 05/21/23 16:54 Dose: 650 mg Al Hydroxide/Mg Hydroxide (Magnesium Hydrox/Alum Hydrox 30 Ml Oral.Susp) 30 ml PO Q6H PRN PRN Reason: Heartburn/Nausea Albuterol Sulfate (Albuterol Sulfate 90 Mcg 8 Gm Inhaler) 1 puff INHALE RQ4H PRN PRN Reason: Shortness Of Breath Atorvastatin Calcium (Atorvastatin Calcium 40 Mg Tablet) 40 mg PO BEDTIME [facility] Last Admin: 05/21/23 22:07 Dose: 40 mg Benzocaine (Benzocaine 20 % Oral Gel 9 Gm Tube) 1 appl MUCOUS MEM TID PRN; Protocol PRN Reason: oral pain Carvedilol (Carvedilol 12.5 Mg Tablet) 12.5 mg PO BID [facility]; Protocol Last Admin: 05/22/23 08:35 Dose: 12.5 mg Escitalopram Oxalate (Escitalopram Oxalate 20 Mg Tablet) 20 mg PO DAILY [facility] Last Admin: 05/22/23 08:35 Dose: 20 mg Furosemide (Furosemide 40 Mg Tablet) 40 mg PO DAILY [facility]; Protocol Last Admin: 05/22/23 08:35 Dose: 40 mg Gabapentin (Gabapentin 300 Mg Capsule) 300 mg PO BEDTIME [facility] Last Admin: 05/21/23 22:07 Dose: 300 mg Hydroxyzine HCl (Hydroxyzine Hcl 50 Mg Tablet) 50 mg PO BID PRN PRN Reason: anxiety Last Admin: 05/22/23 17:07 Dose: 50 mg Hydroxyzine HCl (Hydroxyzine Hcl 25 Mg Tablet) 25 mg PO Q6H PRN PRN Reason: Anxiety Ibuprofen (Ibuprofen 600 Mg Tablet) 600 mg PO TIDWM PRN PRN Reason: Pain, Moderate(Pain Scale 4-6) Lidocaine (Lidocaine 4 % Patch Adh..Patch) 1 patch TRANSDERMA DAILY [facility]; Protocol Last Admin: 05/22/23 10:15 Dose: Not Given Loperamide HCl (Loperamide Hcl 2 Mg Capsule) 2 mg PO Q4H PRN PRN Reason: Diarrhea Last Admin: 05/17/23 11:39 Dose: 2 mg Lorazepam (Lorazepam 1 Mg Tablet) 1 mg PO Q4H PRN PRN Reason: Alcohol Withdrawal Lorazepam (Lorazepam 1 Mg Tablet) 1 mg PO BID [facility] Last Admin: 05/22/23 08:35 Dose: 1 mg Losartan Potassium (Losartan Potassium 25 Mg Tablet) 25 mg PO DAILY [facility]; Protocol Last Admin: 05/22/23 08:35 Dose: 25 mg Magnesium Hydroxide (Milk Of Magnesia 30 Ml Oral.Susp) 30 ml PO DAILY PRN PRN Reason: Constipation Melatonin (Melatonin 3 Mg Tablet) 6 mg PO BEDTIME PRN PRN Reason: Insomnia Last Admin: 05/21/23 22:10 Dose: 6 mg Metformin HCl (Metformin Hcl 500 Mg Tablet) 500 mg PO BID [facility] Last Admin: 05/22/23 08:34 Dose: 500 mg Metformin HCl (Metformin Hcl Er 500 Mg Tab.Er.24h) 500 mg PO DAILY@1700 [facility] Last Admin: 05/22/23 17:07 Dose: 500 mg Multivitamins/Vitamin C (Multivitamin Tablet) 1 tab PO DAILY [facility] Last Admin: 05/22/23 08:35 Dose: 1 tab Thiamine HCl (Thiamine Hcl 100 Mg Tablet) 100 mg PO DAILY [facility] Last Admin: 05/22/23 08:35 Dose: 100 mg Trazodone HCl (Trazodone Hcl 50 Mg Tablet) 50 mg PO BEDTIME MRX1 PRN PRN Reason: Insomnia Last Admin: 05/16/23 22:29 Dose: 50 mg Allergies Allergies Allergy/AdvReac Type Severity Reaction Status Date / Time No Known Allergies Allergy Verified 03/13/23 10:59 Assessment & Plan Assessment & Plan (1) MDD (major depressive disorder), recurrent episode, moderate: Status: Acute Code(s): F33.1 - Major depressive disorder, recurrent, moderate (2) Alcohol use disorder, severe, dependence: Status: Acute Code(s): F10.20 - Alcohol dependence, uncomplicated Assessment and Plan: 05/16: Increase Melatonin to 6 mg HS. Continue treatment plan. 05/18/23: Gabapentin 300 mg HS for evening anxiety sx mgt. Plan 52-year-old male with history of hypertension, heart failure with reduced ejection fraction, TERRIE on CPAP, [id number] type 2 diabetes, severe alcohol use disorder, depression, anxiety, PTSD, and morbid obesity with BMI greater than 59 admitted to Psychiatry with consult placed to hospitalist evalu ation of right flank pain, potassium supplementation. #Right flank pain -05/13, renal function normal, UA unremarkable -Will repeat UA today given associated dysuria to evaluate for infection or hematuria indicative of renal stone -Renal u/s pending which may not be diagnostic given patient's body habitus. However, suspicion right now for renal stones is low. If UA positive for hematuria, will consider CT of the abdomen/pelvis -Consider musculoskeletal etiology. Tylenol, lidocaine patches p.r.n. #Uncontrolled HTN -bp was controlled in ED, low suspicion for GABI. Will cancel renal doppler -Increase carvedilol to 12.5 mg b.i.d., continue losartan 25 mg, and furosemide 40 mg daily -potassium 4.4. Will discontinue KCl 10 mEq supplement as is likely not needed -Monitor blood pressures -Recheck BMP am #Acute diarrhea -single episode without recurrence -Above pain improved following BM. Consider IBS? Outpt follow up -ABd pain and diarrhea can also result from metformin 500mg BID to ER fo rmulation Will continue to follow for results. Thank you for this consult. PSYCH 05/19 continue tx 05/20 no change to plan . 05/21 ibuprofen and oragel for tooth/mouth pain, pt doesnt want med change for mood/anxiety needs assistance getting appropriate clothing for ADLS 05/22/23 Continue current regime and plan of care. Patient educated on: therapeutic strategies Informed Consent: understands Reason for continued inpatient stay Substantial Risk for: rapid decompensation Time Spent With Patient Time: Total time managing care of this patient today ____ minutes.
[2023-05-22] MEDS: Gabapentin 300 MG CAPSULE PO (19:51)
[2023-05-22] MEDS: Atorvastatin Calcium 40 MG TABLET PO (19:52)
[2023-05-22] MEDS: Melatonin 3 MG TABLET 6 MG PO (19:58)
--- NOTE | 2023-05-23 06:36 | PC.RT ---
pt did not go cpap last night due to unavailable sitter.
[2023-05-23 09:20] VITALS: BP 141/83; PULSE 78; RESP 18; TEMP 35.8; O2SAT 95
[2023-05-23] MEDS: carvediloL 12.5 MG TABLET PO ×2 (09:21→22:10)
[2023-05-23] MEDS: Losartan Potassium 25 MG TABLET PO (09:21)
[2023-05-23] MEDS: LORazepam 1 MG TABLET PO ×2 (09:21→22:10)
[2023-05-23] MEDS: Escitalopram Oxalate 20 MG TABLET PO (09:21)
[2023-05-23] MEDS: Thiamine HCL 100 MG TABLET PO (09:21)
[2023-05-23] MEDS: Multivitamin TABLET 1 TAB PO (09:21)
[2023-05-23] MEDS: metFORMIN HCl 500 MG TABLET PO ×2 (09:21→22:09)
[2023-05-23] MEDS: Furosemide 40 MG TABLET PO (09:22)
--- NOTE | 2023-05-23 16:09 | HO.PSYCHPN ---
Subjective Subjective Date of Service: 05/23/23 Reason For Visit: Recurrent major depression; Alcohol use disorder Subjective Notes: Conditional Voluntary and 3 Day Healthcare Proxy: No Guardianship: No Medical Problems Affecting Mental Status: No Interim History: Three day notice expires 05/24/23. Pt prepared to discharge. Accepting of all referrals. Has identified isolation as an issue prompting relapse during this admission and has attempted to engage himself in activities/programs to combat this. He has reached out to [employer] and has applied to join. He has made contact with them during this admission to discuss his application. Medication Compliance: Yes Side effects from medications: No Attending Groups: Yes Review of Systems Acute medical concerns: No Medical Review of Systems: unchanged Mental Status Exam Mental Status Exam Patient Appearance: Appropriate Patient Orientation: Person, Place, Time and Situation Level of Consciousness: Alert Patient Behavior: Talkative and Good Eye Contact Mood Description: Constricted Affect Description: Constricted Ability to Follow Directions: Good Speech Pattern: Spontaneous Speech Memory Description: Intact Hallucinations: None Delusions: Not Present Perceptual Disturbances: Derealization Thought Process: Goal Oriented Thought Content: positive for Goal Oriented Judgement: Good Diagnostics Vital Signs (24Hr): Vital Signs - 24 hr 05/22/23 16:35 05/23/23 09:20 Temperature 97.3 F 96.5 F L Pulse Rate 84 78 Respiratory Rate 16 18 Blood Pressure 131/72 141/83 H Pulse Oximetry 95 95 Oxygen Delivery Method Room Air Room Air BMI result Body Mass Index 59.3 Labs 05/13/23 01:56 05/21/23 08:59 Labs: Laboratory Results - last 48 hr 05/21/23 20:09 POC Glucose 177 H Imaging Radiology Impressions: ITS Impressions Renal Ultrasound 05/15/23 14:07 IMPRESSION: Unremarkable examination. Medications Medications Current Medications Acetaminophen (Acetaminophen 325 Mg Tablet) 650 mg PO Q6H PRN PRN Reason: Headache/Pain Mild Scale (1-3) Last Admin: 05/21/23 16:54 Dose: 650 mg Al Hydroxide/Mg Hydroxide (Magnesium Hydrox/Alum Hydrox 30 Ml Oral.Susp) 30 ml PO Q6H PRN PRN Reason: Heartburn/Nausea Albuterol Sulfate (Albuterol Sulfate 90 Mcg 8 Gm Inhaler) 1 puff INHALE RQ4H PRN PRN Reason: Shortness Of Breath Atorvastatin Calcium (Atorvastatin Calcium 40 Mg Tablet) 40 mg PO BEDTIME TOBY Last Admin: 05/22/23 19:52 Dose: 40 mg Benzocaine (Benzocaine 20 % Oral Gel 9 Gm Tube) 1 appl MUCOUS MEM TID PRN; Protocol PRN Reason: oral pain Carvedilol (Carvedilol 12.5 Mg Tablet) 12.5 mg PO BID TOBY; Protocol Last Admin: 05/23/23 09:21 Dose: 12.5 mg Escitalopram Oxalate (Escitalopram Oxalate 20 Mg Tablet) 20 mg PO DAILY TOBY Last Admin: 05/23/23 09:21 Dose: 20 mg Furosemide (Furosemide 40 Mg Tablet) 40 mg PO DAILY TOBY; Protocol Last Admin: 05/23/23 09:22 Dose: 40 mg Gabapentin (Gabapentin 300 Mg Capsule) 300 mg PO BEDTIME TOBY Last Admin: 05/22/23 19:51 Dose: 300 mg Hydroxyzine HCl (Hydroxyzine Hcl 50 Mg Tablet) 50 mg PO BID PRN PRN Reason: anxiety Last Admin: 05/22/23 17:07 Dose: 50 mg Hydroxyzine HCl (Hydroxyzine Hcl 25 Mg Tablet) 25 mg PO Q6H PRN PRN Reason: Anxiety Ibuprofen (Ibuprofen 600 Mg Tablet) 600 mg PO TIDWM PRN PRN Reason: Pain, Moderate(Pain Scale 4-6) Lidocaine (Lidocaine 4 % Patch Adh..Patch) 1 patch TRANSDERMA DAILY TOYB; Protocol Last Admin: 05/23/23 09:34 Dose: Not Given Loperamide HCl (Loperamide Hcl 2 Mg Capsule) 2 mg PO Q4H PRN PRN Reason: Diarrhea Last Admin: 05/17/23 11:39 Dose: 2 mg Lorazepam (Lorazepam 1 Mg Tablet) 1 mg PO Q4H PRN PRN Reason: Alcohol Withdrawal Lorazepam (Lorazepam 1 Mg Tablet) 1 mg PO BID TOBY Last Admin: 05/23/23 09:21 Dose: 1 mg Losartan Potassium (Losartan Potassium 25 Mg Tablet) 25 mg PO DAILY TOBY; Protocol Last Admin: 05/23/23 09:21 Dose: 25 mg Magnesium Hydroxide (Milk Of Magnesia 30 Ml Oral.Susp) 30 ml PO DAILY PRN PRN Reason: Constipation Melatonin (Melatonin 3 Mg Tablet) 6 mg PO BEDTIME PRN PRN Reason: Insomnia Last Admin: 05/22/23 19:58 Dose: 6 mg Metformin HCl (Metformin Hcl 500 Mg Tablet) 500 mg PO BID [facility] Last Admin: 05/23/23 09:21 Dose: 500 mg Metformin HCl (Metformin Hcl Er 500 Mg Tab.Er.24h) 500 mg PO DAILY@1700 [facility] Last Admin: 05/22/23 17:07 Dose: 500 mg Multivitamins/Vitamin C (Multivitamin Tablet) 1 tab PO DAILY [facility] Last Admin: 05/23/23 09:21 Dose: 1 tab Thiamine HCl (Thiamine Hcl 100 Mg Tablet) 100 mg PO DAILY [facility] Last Admin: 05/23/23 09:21 Dose: 100 mg Trazodone HCl (Trazodone Hcl 50 Mg Tablet) 50 mg PO BEDTIME MRX1 PRN PRN Reason: Insomnia Last Admin: 05/16/23 22:29 Dose: 50 mg Allergies Allergies Allergy/AdvReac Type Severity Reaction Status Date / Time No Known Allergies Allergy Verified 03/13/23 10:59 Assessment & Plan Assessment & Plan (1) MDD (major depressive disorder), recurrent episode, moderate: Status: Acute Code(s): F33.1 - Major depressive disorder, recurrent, moderate (2) Alcohol use disorder, severe, dependence: Status: Acute Code(s): F10.20 - Alcohol dependence, uncomplicated Assessment and Plan: 05/16: Increase Melatonin to 6 mg HS. Continue treatment plan. 05/18/23: Gabapentin 300 mg HS for evening anxiety sx mgt. Plan 52-year-old male with history of hypertension, heart failure with reduced ejection fraction, TERRIE on CPAP, [id number] type 2 diabetes, severe alcohol use disorder, depression, anxiety, PTSD, and morbid obesity with BMI greater than 59 admitted to Psychiatry with consult placed to hospitalist evaluation of right flank pain, potassium supplementation. #Right flank pain -05/13, renal function normal, UA unremarkable -Will repeat UA today given associated dysuria to evaluate for infection or hematuria indicative of renal stone -Renal u/s pending which may not be diagnostic given patient's body habitus. However, suspicion right now for renal stones is low. If UA positive for hematuria, will consider CT of the abdomen/pelvis -Consider musculoskeletal etiology. Tylenol, lidocaine patches p.r.n. #Uncontrolled HTN -bp was controlled in ED, low suspicion for GABI. Will cancel renal doppler -Increase carvedilol to 12.5 mg b.i.d., continue losartan 25 mg, and furosemide 40 mg daily -potassium 4.4. Will discontinue KCl 10 mEq supplement as is likely not needed -Monitor blood pressures -Recheck BMP am #Acute diarrhea -single episode without recurrence -Above pain improved following BM. Consider IBS? Outpt follow up -ABd pain and diarrhea can also result from metformin 500mg BID to ER formulation Will continue to follow for results. Thank you for this consult. PSYCH 05/19 continue tx 05/20 no change to plan . 05/21 ibuprofen and oragel for tooth/mouth pain, pt doesnt want med change for mood/anxiety needs assistance getting appropriate clothing for ADLS 05/22/23 Continue current regime and plan of care. 05/23/23 Discharge 05/24/23 on a three day notice, accepting of several out patient referrals. Informed Consent: understands Reason for continued inpatient stay Substantial Risk for: stable for discharge Time Spent With Patient Time: Total time managing care of this patient today ____ minutes.
[2023-05-23 16:57] VITALS: BP 92/51; PULSE 80; RESP 18; TEMP 35.8; O2SAT 93
[2023-05-23] MEDS: metFORMIN HCl ER 500 MG TAB.ER.24H PO (17:34)
[2023-05-23] MEDS: Gabapentin 300 MG CAPSULE PO (22:09)
[2023-05-23] MEDS: Atorvastatin Calcium 40 MG TABLET PO (22:10)
[2023-05-23] MEDS: Melatonin 3 MG TABLET 6 MG PO (22:11)
[2023-05-23] MEDS: hydrOXYzine HCL 25 MG TABLET PO (22:12)
[2023-05-24 06:00] VITALS: BP 128/78; PULSE 74; RESP 12; TEMP 36.2; O2SAT 95
[2023-05-24] MEDS: Thiamine HCL 100 MG TABLET PO (08:31)
[2023-05-24] MEDS: LORazepam 1 MG TABLET PO (08:31)
[2023-05-24] MEDS: metFORMIN HCl 500 MG TABLET PO (08:31)
[2023-05-24] MEDS: Furosemide 40 MG TABLET PO (08:31)
[2023-05-24] MEDS: Multivitamin TABLET 1 TAB PO (08:31)
[2023-05-24] MEDS: Escitalopram Oxalate 20 MG TABLET PO (08:31)
[2023-05-24] MEDS: carvediloL 12.5 MG TABLET PO (08:31)
[2023-05-24] MEDS: Losartan Potassium 25 MG TABLET PO (08:32)
--- NOTE | 2023-05-24 12:22 | PM.PSYDC ---
DS: Providers Provider Date of Service: 05/24/23 Date of admission: 05/13/23 12:59 Date of discharge: 05/24/23 Primary care physician: Patrick Physician Admitting clinician: Vanesa Mitchell Attending physician on admission: Jori Rodriguez Consults: 05/14/23 14:48 Consult to Hospitalist Routine Comment: Consulting Provider: Hospitalist Reason For Exam: Flank Pain-recent initiation of K+, renal US, labs Attending physician on discharge: Jori Rodriguez Discharging clinician: Vanesa Mitchell DS: Diagnosis Discharge Diagnosis (1) MDD (major depressive disorder), recurrent episode, moderate: Status: Acute (2) Alcohol use disorder, severe, dependence: Status: Acute DS: Medications Discharge Medications Home Medications: Previous Rx's Medication Instructions Recorded acetaminophen 325 mg tablet 650 mg PO Q6H PRN Headache/Pain 05/23/23 Mild Scale (1-3) #60 tabs albuterol sulfate 90 mcg/actuation 1 puff inhalation RQ4H PRN 05/23/23 aerosol inhaler (Ventolin HFA) Shortness Of Breath 30 days #1 inhaler atorvastatin 40 mg tablet 40 mg PO BEDTIME #30 tabs 05/23/23 benzocaine 20 % mucosal gel 1 appl mucous membrane TID PRN 05/23/23 (Anbesol (benzocaine) Maximum oral pain #1 applicator Strength) carvedilol 12.5 mg tablet 12.5 mg PO BID #60 tabs 05/23/23 escitalopram oxalate 20 mg tablet 20 mg PO DAILY #30 tabs 05/23/23 furosemide 40 mg tablet 40 mg PO DAILY #30 tabs 05/23/23 gabapentin 300 mg capsule 300 mg PO BEDTIME #30 caps 05/23/23 hydroxyzine pamoate 50 mg capsule 50 mg PO BID PRN anxiety #60 caps 05/23/23 ibuprofen 600 mg tablet 600 mg PO TIDWM PRN Pain, 05/23/23 Moderate(Pain Scale 4-6) #90 tabs lidocaine 4 % topical patch 1 patch transdermal DAILY #30 ea 05/23/23 (Lidocaine Pain Relief) lorazepam 0.5 mg tablet (Ativan) 0.5 mg PO BID PRN anxiety #15 tabs 05/23/23 losartan 25 mg tablet 25 mg PO DAILY #30 tabs 05/23/23 melatonin 3 mg tablet 6 mg PO BEDTIME PRN Insomnia #60 05/23/23 tabs metformin 500 mg tablet 500 mg PO BID #60 tabs 05/23/23 metformin 500 mg tablet,extended 500 mg PO DAILY@1700 #30 tabs 05/23/23 release 24 hr multivitamin (Daily-Loren tablet) 1 tab PO DAILY #30 tabs 05/23/23 thiamine mononitrate (vit B1) 100 100 mg PO DAILY #30 tabs 05/23/23 mg tablet trazodone 50 mg tablet 50 mg PO BEDTIME MRX1 PRN Insomnia 05/23/23 #60 tabs Mental Status Exam Mental Status Exam Patient Appearance: Appropriate Patient Orientation: Person, Place, Time and Situation Level of Consciousness: Alert Patient Behavior: Talkative and Good Eye Contact Mood Description: Constricted Affect Description: Constricted Ability to Follow Directions: Good Speech Pattern: Spontaneous Speech Memory Description: Intact Hallucinations: None Delusions: Not Present Perceptual Disturbances: Derealization Thought Process: Goal Oriented Thought Content: positive for Goal Oriented Judgement: Good Data Data Completed and Pending Completed studies during hospitalization [Text1]: 05/17/23 05/21/23 05/21/23 13:36 08:59 20:09 Creatinine 0.64 Estim Creat Clear Calc 239.0 Estimated GFR > 60 POC Glucose 177 H Stl C. cayetanensis PCR Cancelled Stool Rotavirus A PCR Cancelled Stl Adenov F 40/41 PCR Cancelled Stool Astrovirus (PCR) Cancelled Stool Campylobacter PCR Cancelled Stool Cryptosporidium PCR Cancelled Stl Sh Tox Pr E STEC PCR Cancelled Stool E coli O157 PCR Cancelled Stl Enterotoxigenic E PCR Cancelled Stool EPEC (PCR) Cancelled Stool EAEC (PCR) Cancelled Stl E. histolytica PCR Cancelled Stool Giardia Lamblia PCR Cancelled Stl P. shigelloides PCR Cancelled Stool Salmonella PCR Cancelled Stool Sapovirus (PCR) Cancelled Stl Shigella/EIEC PCR Cancelled St Y.enterocolitica PCR Cancelled Stool Vibrio (PCR) Cancelled Stl Vibrio cholerae PCR Cancelled Stl Norovirus GI/GII PCR Cancelled Imaging Diagnostic Imaging Impressions Renal Ultrasound 05/15/23 14:07 IMPRESSION: Unremarkable examination. DS: Summary Hospital Course Hospital Course: Admission to adult psychiatry for exacerbation of alcohol use disorder and major depression. Pre-existing medical conditions exacerbated with pt's alcohol use. Pt reports non compliance with medication prior to admission. Pt reports social isolation as one of the main precipitants to relapse and increase in depressive symptoms. Detox and medical stabilization were completed. Medications re-assessed. Pt expressed interest in attending [facility] and continuing with the out [facility] at the [facility]. At this time, he declined CSS as he wants to continue working. Time spent discussing smoking cessation with patient: 3 to 10 minutes Status at Discharge Functional status at discharge: independent ambulation Overall status at discharge: patient is progressing back to baseline Time Spent with Patient Time attestation: Total time managing care of this patient today ____ minutes. Time spent: Greater than 30 minutes Discharge Plan Discharge Anticipated Discharge Date/Time: 05/24/23 12:00 Patient Disposition: Home, Self-Care Discharge Diagnosis: Recurrent Major Depression Alcohol Use Disorder, Severe Referrals: Esteban [facility]: [facility] (Therapist) [Other] - 05/24/23 11:00 am (Follow-up discharge appointment with outpatient therapist Appointment is in person at [facility]) Esteban Hernandez: [facility]: Therapist [Other] - 06/01/23 3:00 pm (Follow-up discharge appointment with therapist Appointment in Person at [facility]) Litzy Moscoso RN [Other] - 05/26/23 11:00 am (Follow-up hospital discharge appointment for psychiatry Appointment in person at [facility] ) [facility]: [facility] Program [Other] - 05/31/23 11:15 am (Outpatient IOP referral for substance abuse treatment Initial Intake Appointment Scheduled on 05/31/23 at 11:15 am with Brandon Nieves in person at [facility].) Milana Brown [Other] - 1 Week (Referral to [facility] Patient should follow-up on referral after discharge to assess status of referral.) [facility] [Other] - 1 Week (If you have any issues or concerns please use the walk in center or give them a call. ) Discharge Medications: New ibuprofen 600 mg Tablet 600 mg PO TIDWM PRN (Reason: Pain, Moderate(Pain Scale 4-6)) Qty: 90 0RF Discontinued furosemide 40 mg tablet 40 mg PO DAILY atorvastatin 40 mg tablet 40 mg PO BEDTIME metformin 500 mg tablet 500 mg PO BID potassium chloride 10 mEq capsule, extended release 10 meq PO DAILY carvedilol 6.25 mg tablet 6.25 mg PO BID hydroxyzine pamoate 50 mg capsule 50 mg PO BID PRN (Reason: anxiety) losartan 25 mg tablet 25 mg PO DAILY escitalopram oxalate 20 mg tablet 20 mg PO DAILY albuterol sulfate [Ventolin HFA] 90 mcg/actuation Hfa Aerosol Inhaler 1 puff inhalation RQ4H PRN (Reason: Shortness Of Breath) 30 Days Qty: 1 0RF No Action Farxiga 10 mg tablet 10 mg PO DAILY furosemide 40 mg Tablet 40 mg PO DAILY Qty: 30 0RF Protocol: Hold for SBP< HOLD for SBP < : 90 naltrexone 50 mg Tablet 50 mg PO DAILY Qty: 30 0RF melatonin 3 mg Tablet 6 mg PO BEDTIME PRN (Reason: Insomnia) Qty: 60 0RF cyanocobalamin (vitamin B-12) 500 mcg Tablet 500 mcg PO DAILY Qty: 30 0RF bupropion HCl 75 mg Tablet 75 mg PO DAILY Qty: 30 0RF omeprazole 20 mg Capsule,Delayed Release(Dr/Ec) 20 mg PO DAILY@0630 Qty: 30 0RF folic acid 1 mg Tablet 1 mg PO DAILY Qty: 30 0RF gabapentin 100 mg Capsule 100 mg PO 0900,1500 Qty: 60 0RF aripiprazole [Abilify] 5 mg Tablet 5 mg PO DAILY Qty: 30 0RF multivitamin [Daily-Loren] Tablet 1 tab PO DAILY Qty: 30 0RF atorvastatin 40 mg tablet 40 mg PO BEDTIME Qty: 30 0RF metformin 500 mg tablet 500 mg PO BID Qty: 60 0RF potassium chloride 10 mEq capsule, extended release 10 meq PO DAILY Qty: 30 0RF carvedilol 12.5 mg Tablet 12.5 mg PO BID Qty: 60 0RF Protocol: Hold for SBP/HR < HOLD for SBP < : 90 HOLD for HR < : 60 trazodone 50 mg Tablet 50 mg PO BEDTIME MRX1 PRN (Reason: Insomnia) Qty: 60 0RF hydroxyzine pamoate 50 mg capsule 50 mg PO BID PRN (Reason: anxiety) Qty: 60 0RF losartan 25 mg tablet 25 mg PO DAILY Qty: 30 0RF gabapentin 300 mg Capsule 300 mg PO BEDTIME Qty: 30 0RF albuterol sulfate [Ventolin HFA] 90 mcg/actuation Hfa Aerosol Inhaler 1 puff inhalation RQ4H PRN (Reason: Shortness Of Breath) 30 Days Qty: 1 0RF escitalopram oxalate 20 mg tablet 20 mg PO DAILY Qty: 30 0RF Discharge Orders: Discharge Order (Routine); Ordered 05/23/23 Ordered By: Vanesa Mitchell Diet: Diabetic diet Activity on Discharge: As tolerated Stand Alone Forms: Patient Portal Discharge page, Community Support Care Plan Goals: Mood and Behavioral Stabilization Work on Sobriety Health Concerns: Mood and Behavioral Stabilization Management of medical issues, diabetes, cardiac symptoms Work on Sobriety Plan of Treatment: Attend scheduled appointments Avoid isolation!!! Take medications as directed Follow up with your primary care physician for ongoing medical care. Assessment: Pt leaves on a three day notice today. Pt interviewed prior to discharge and found to be fully oriented and without SI/HI. Pt has insight and demonstrates good judgment in terms of wanting to pursue treatment. He has identified isolation as an issue and has planned to be more engaged in activities that promote sobriety and improved well-being. Pt is not in imminent risk of harm to self or others and has a safety plan that includes presenting to the closest ER or calling 911 if feeling unsafe. Pt has been observed closely by nursing and unit staff throughout admission. Pt has not engaged in any behaviors that suggest dangerousness to self or others and has demonstrated appropriate behaviors and impulse control. Discharge Date/Time: 05/24/23 14:42
== END 2023-05-24 14:42 | disposition home or self-care (01) | DRG 885 ==
LOC: HO.ED 07:29 → HO.PM5 13:09
PROVIDERS: Emergency Medicine; Admitting Provider Psychiatry & Neurology Psychiatry; Emergency Provider Emergency Medicine Emergency Medical Services; Visit Provider Clinical Nurse Specialist Psychiatric/Mental Health, Adult
DX: F33.1 Major depressive disorder, recurrent, moderate (principal); Z68.43 Body mass index [BMI] 50.0-59.9, adult; E66.01 Morbid (severe) obesity due to excess calories; I10 Essential (primary) hypertension; F10.20 Alcohol dependence, uncomplicated; R10.9 Unspecified abdominal pain; Z20.822 Contact with and (suspected) exposure to COVID-19; Y90.7 Blood alcohol level of 200-239 mg/100 ml; G47.33 Obstructive sleep apnea (adult) (pediatric); Z79.84 Long term (current) use of oral hypoglycemic drugs; Z79.899 Other long term (current) drug therapy
CPT/HCPCS: 36415; 76775; 80048; 80053; 80061; 80143; 80179; 80307; 81001; 81003; 82565; 82607; 82746; 82947; 83036; 83735; 84145; 84439; 84443; 84484; 85025; 85652; 86140; 87493; 87507; 87635; 93005; 94660; 99285; S9485

== ENCOUNTER → 2023-05-13 12:59 | Outpatient (BNV) | payer MEDICARE, MEDICAID, SELFPAY | PROVIDERS: Admitting Provider Psychiatry & Neurology Psychiatry; Emergency Provider Emergency Medicine Emergency Medical Services; Visit Provider Clinical Nurse Specialist Psychiatric/Mental Health, Adult | DX: F33.1 Major depressive disorder, recurrent, moderate (principal); F10.20 Alcohol dependence, uncomplicated | CPT/HCPCS: 90792; 99231; 99232; 99239 ==

== ENCOUNTER 2023-05-30 08:24 | Emergency (ER) | payer OTHER, SELFPAY ==
--- NOTE | 2023-05-30 | ECG_ITS ---
Test Reason : CHEST PAIN Blood Pressure : / mmHG Vent. Rate : 093 BPM Atrial Rate : 093 BPM P-R Int : 204 ms QRS Dur : 092 ms QT Int : 400 ms P-R-T Axes : 043 -55 027 degrees QTc Int : 497 ms Sinus rhythm with Premature atrial complexes with Aberrant conduction Left axis deviation Low voltage QRS Septal infarct (cited on or before 24-DEC-2022) Abnormal ECG When compared with ECG of 13-MAY-2023 01:22, Aberrant conduction is now Present Inverted T waves have replaced nonspecific T wave abnormality in Anterior leads Referred By: Zac Downing Electronically Signed By:Daniel Major
--- NOTE | ~2023-05-30 | XR_ITS ---
EXAMINATION: XR CHEST CLINICAL INFORMATION: Shortness of breath COMPARISON: 03/13/[address] TECHNIQUE: 2 views of the chest were obtained. FINDINGS: Cardiac silhouette is prominent in size. Central vascularity is prominent but no overt failure. Small opacity in the mid to upper right lung zone may represent small consolidation, not seen on previous studies. Multiple thoracic osteophytes. XR/XR chest 2V IMPRESSION: Small right-sided consolidation not excluded.
[2023-05-30 08:38] VITALS: BP 134/82; BP 165/94; PULSE 101; PULSE 104; RESP 18; TEMP 36.7; O2SAT 90; O2SAT 95; BMI 54.9
--- NOTE | 2023-05-30 10:16 | PC.NURSE ---
client c/o CP, did ekg which was brought to provider for review. 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 client asked to dc and t/w informed him he could speak to provider when proivder arrived to be discharged,.
[2023-05-30 11:16] LABS: Appearance Urine Clear; Color Urine Yellow; Glucose Urine UA >=1000 mg/dL (Negative); Leukocyte Esterase Urine Negative (Negative); Nitrite Urine Negative (Negative); PH 5.5 (5.0-9.0); Specific Gravity - Urine >= 1.030 (1.005-1.025); UMIC TRIGGER UACC YES; Urine Blood Negative (Negative); Urine Ketones Trace mg/dL (Negative); Urine Protein 30 (1+) mg/dL (Neg-Trace)
[2023-05-30 11:18] LABS: Bacteria Urine None Seen (None Seen); Hyaline Casts Urine 0-2 /LPF (0-2); RBC Urine 0-2 /HPF (0-2); WBC Urine 0-5 /HPF (0-5)
[2023-05-30 11:25] LABS: Amphetamine Screen Urine Not Detected (Not Detect); Barbiturates, Urine Not Detected (Not Detect); Benzodiazepines Screen Urine Not Detected (Not Detect); Cannabinoid Screen Urine Not Detected (Not Detect); Cocaine Screen Urine Not Detected (Not Detect); Fentanyl, urine Not Detected (Not Detect); Opiate Screen Urine Not Detected (Not Detect); Phencyclidine Screen Urine Not Detected (Not Detect)
--- NOTE | 2023-05-30 11:27 | ED_ITS ---
HPI - General Adult General Chief complaint: Psychiatric Symptoms Stated complaint: SI. No meds x4 days Time Seen by Provider: 05/30/23 09:01 Source: patient and EMS Mode of arrival: EMS Limitations: no limitations History of Present Illness HPI narrative: 52-year-old male presents for psychiatric evaluation. Patient is not taking any of his medications for the past 3-4 days. He reports feeling depressed and levi icidal. His plan would be to overdose on heroin although he does not typically use heroin. Patient's symptoms are severe. There is no clear relieving or exacerbating features. Patient reports recent discharge from our facility. Patient is also reporting chest pain. Chest pain occurred on arrival. Is generalized throughout his chest worse with inspiration. He has orthopnea, lower extremity edema. He reports having a history of possible CHF. His chest pain is not associated with exertion and is not worsened with exertion. Pain is moderate. The shortness of breath is more significant. His his edema is bilateral. He has had this in the past he is on furosemide for this. Related Data Home Medications Medication Instructions Recorded Confirmed potassium chloride 10 mEq 10 meq PO DAILY 05/30/23 05/30/23 capsule,extended release Previous Rx's Medication Instructions Recorded acetaminophen 325 mg tablet 650 mg PO Q6H PRN Headache/Pain 05/23/23 Mild Scale (1-3) #60 tabs albuterol sulfate 90 mcg/actuation 1 puff inhalation RQ4H PRN 05/23/23 aerosol inhaler (Ventolin HFA) Shortness Of Breath 30 days #1 inhaler atorvastatin 40 mg tablet 40 mg PO BEDTIME #30 tabs 05/23/23 carvedilol 12.5 mg tablet 12.5 mg PO BID #60 tabs 05/23/23 escitalopram oxalate 20 mg tablet 20 mg PO DAILY #30 tabs 05/23/23 furosemide 40 mg tablet 40 mg PO DAILY #30 tabs 05/23/23 gabapentin 300 mg capsule 300 mg PO BEDTIME #30 caps 05/23/23 hydroxyzine pamoate 50 mg capsule 50 mg PO BID PRN anxiety #60 caps 05/23/23 ibuprofen 600 mg tablet 600 mg PO TIDWM PRN Pain, 05/23/23 Moderate(Pain Scale 4-6) #90 tabs lidocaine 4 % topical patch 1 patch transdermal DAILY #30 ea 05/23/23 (Lidocaine Pain Relief) lorazepam 0.5 mg tablet (Ativan) 0.5 mg PO BID PRN anxiety #15 tabs 05/23/23 losartan 25 mg tablet 25 mg PO DAILY #30 tabs 05/23/23 melatonin 3 mg tablet 6 mg PO BEDTIME PRN Insomnia #60 05/23/23 tabs metformin 500 mg tablet 500 mg PO BID #60 tabs 05/23/23 multivitamin (Daily-Loren tablet) 1 tab PO DAILY #30 tabs 05/23/23 thiamine mononitrate (vit B1) 100 100 mg PO DAILY #30 tabs 05/23/23 mg tablet trazodone 50 mg tablet 50 mg PO BEDTIME MRX1 PRN Insomnia 05/23/23 #60 tabs Allergies Allergy/AdvReac Type Severity Reaction Status Date / Time No Known Allergies Allergy Verified 03/13/23 10:59 Review of Systems Review of Systems: CONSTITUTIONAL: Denies weight loss, fever and chills. HEENT: Denies changes in vision and hearing. RESPIRATORY: + SOB and cough. CV: Denies palpitations + CP. GI: Denies abdominal pain, nausea, vomiting and diarrhea. : Denies dysuria and urinary frequency. MSK: Denies myalgia and joint pain. SKIN: Denies rash and pruritus. NEUROLOGICAL: Denies headache and syncope. PSYCHIATRIC: Denies recent changes in mood. Denies anxiety and depression. All other ROS are negative unless in HPI PMFSH Past Medical History Medical History Acute gastritis with bleeding Alcohol use disorder, severe, dependence Anxiety Arthritis Depression Diabetes mellitus, type 2 Herniated disc Hypertension Morbid obesity Obesity TERRIE on CPAP PTSD (post-traumatic stress disorder) Sleep apnea Systolic heart failure Family History Family History Mother Diabetes Social History Social History Household Members: None Housing: Apartment Do you presently have visiting nurse or other home services: No Alcohol intake: current Alcohol intake frequency: 3 or more drinks per day Alcohol type: hard liquor Patient Tobacco Use Status: Never used Tobacco e-Cigarette/Vaping Use: Never Used Second Hand Smoke Exposure: No Substance Use Type: Other Advance Directives: No Advance Directives Information Provided: No service: Yes ([employer] [id number]) Current occupational status: employed Sexual orientation: Straight/Heterosexual Physical Exam ED Vital Signs: Vital Signs - 24 hr 05/30/23 08:38 Temperature 98.1 F Pulse Rate 101 H Respiratory Rate 18 Blood Pressure 165/94 H Pulse Oximetry 90 L Oxygen Delivery Method Room Air BMI result Body Mass Index 54.9 GEN: Well developed, no acute distress, alert, oriented HEENT: Normocephalic, atraumatic, normal external ears, nose appears normal, no oropharyngeal edema or exudates Eyes: Normal to appearance Neck: Supple, no lymphadenopathy Respiratory: Talks in complete sentences, no respiratory distress, clear to auscultation bilaterally Cardiovascular: Regular rate and rhythm, no murmurs rubs or gallops Abdomen: Soft, nontender, nondistended, no guarding, no rebound Back: No CVA tenderness Extremities: No clubbing cyanosis 1+ edema Neurologic: No focal neurologic deficits, cranial nerves 2-12 intact, strength is 5/5 bilaterally Skin: No rash Course Reevaluation(s) Reevaluation #1: Patient is medically cleared at this time. Two sets of cardiac enzymes are negative. Chest x-ray shows no acute cardiopulmonary disease. Doubt his symptoms are related to acute coronary syndrome at this time. He has received his usual medications that he takes for blood pressure and congestive heart failure. Patient is also alerted me that he uses CPAP at night and cannot sleep lab. We will attempt to solve this issue as well. The time being, I will place the patient in physician observation. Time: 14:28 Reevaluation #2: I have ordered CPAP for the patient for tonight. Patient is waiting care team consultation. Patient's care will be transitioned to the oncoming provider at 4:00 p.m.. Time: 15:19 Medications Administered Discontinued Medications Generic Name Dose Route Start Last Admin Trade Name Freq PRN Reason Stop Dose Admin Carvedilol 12.5 mg 05/30/23 10:54 05/30/23 11:32 Carvedilol 12.5 Mg Tablet PO 05/30/23 10:55 12.5 mg ONCE ONE Administration Protocol Escitalopram Oxalate 20 mg 05/30/23 10:54 05/30/23 11:39 Escitalopram Oxalate 10 Mg Tablet PO 05/30/23 10:55 10 mg ONCE ONE Administration Furosemide 40 mg 05/30/23 10:57 05/30/23 11:33 Furosemide 40 Mg Tablet PO 05/30/23 10:58 40 mg ONCE ONE Administration Protocol Gabapentin 300 mg 05/30/23 10:54 05/30/23 11:32 Gabapentin 300 Mg Capsule PO 05/30/23 10:55 300 mg ONCE ONE Administration Losartan Potassium 25 mg 05/30/23 10:54 05/30/23 11:32 Losartan Potassium 25 Mg Tablet PO 05/30/23 10:55 25 mg ONCE ONE Administration Protocol Metformin HCl 500 mg 05/30/23 10:54 05/30/23 11:32 Metformin Hcl Er 500 Mg Tab.Er.24h PO 05/30/23 10:55 500 mg ONCE ONE Administration Medical Decision Making Medical Decision Making MDM Narrative: Patient presents for psychiatric evaluation. Patient reports suicidal ideation, depression and plan. Patient will need a crisis evaluation. Will medically clear him for evaluation. Differential diagnosis includes depression, anxiety, substance use, mood disorder, factitious disorder, PTSD, bipolar disorder. Patient is also complaining of chest pain pain is described as pressure associated with shortness he does have orthopnea and cough with lower extremity edema. Patient reports history of CHF. Differential diagnosis includes acute coronary syndrome, angina, atypical chest pain, anxiety, CHF, doubt pulmonary embolus. Plan, chest x-ray, EKG, troponin x2 will continue his usual cardiac medications. Differential Diagnosis Differential Diagnoses: The differential diagnosis associated with the presentation includes (See above) Admission/Observation Consideration of admission/observation: Escalation of care including admission/observation considered Consult Healthcare Provider Management of the patient was discussed with: Behavioral Health Provider Lab Data [facility] Lab Attestation statement: I reviewed the patient's lab results. 05/30/23 11:21 05/30/23 11:21 Labs: Lab Results 05/30/23 05/30/23 05/30/23 Range/Units 10:55 10:55 11:21 WBC 8.1 (4.8-10.8) X10*3/uL RBC 4.60 (4.60-5.80) X10*6/uL Hgb 13.7 L (14.0-18.0) g/dl Hct 42.5 (42.0-52.0) % MCV 92.4 (80.0-98.0) fL MCH 29.8 (27.0-33.0) pg MCHC 32.2 (31.0-36.0) g/dl RDW 13.6 (11.0-16.0) % Plt Count 241 D (160-400) X10*3/uL MPV 10.7 (9.4-12.4) fL Immature Gran % (Auto) 0.5 H (0.0-0.4) % Neut % (Auto) 69.0 (45-73) % Lymph % (Auto) 21.5 (20-40) % [place] % (Auto) 6.6 (2-11) % Eos % (Auto) 1.4 (0-4) % Baso % (Auto) 1.0 (0-2) % Lymph # (Auto) 1.7 (1.2-4.9) X10*3/uL [place] # (Auto) 0.5 (0.1-1.2) X10*3/uL Eos # (Auto) 0.1 (0.0-0.4) X10*3/uL Baso # (Auto) 0.1 (0.0-0.2) X10*3/uL Abs Immat Gran (auto) 0.04 H (0.00-0.03) X10*3/uL Absolute Neuts (auto) 5.6 (2.0-8.3) x10*3/uL Absolute Nucleated RBC 0.000 (0.0-0.012) X10*3/uL Nucleated RBC % (auto) 0.0 (0.0-0.2) /100WBC Sodium (135-145) mmol/L Potassium (3.3-5.1) mmol/L Chloride (96-108) mmol/L Carbon Dioxide (22-29) mmol/L Anion Gap (12-20) BUN (9-16) mg/dL Creatinine (0.5-1.4) mg/dL Estim Creat Clear Calc Estimated GFR Random Glucose (60-115) mg/dL Calcium (8.4-10.2) mg/dL Total Bilirubin (0.0-1.0) mg/dL AST (5-37) U/L ALT (0-40) U/L Alkaline Phosphatase (39-117) U/L Troponin I High Sens (<3.5-35.0) ng/L Total Protein (6.5-8.0) g/dL Albumin (3.5-5.0) g/dL Urine Color Yellow Urine Appearance Clear Urine pH 5.5 (5.0-9.0) Ur Specific [place] >= 1.030 H (1.005-1.025) Urine Protein 30 (1+) H (Neg-Trace) mg/dL Urine Glucose (UA) >=1000 H (Negative) mg/dL Urine Ketones Trace (Negative) mg/dL Urine Blood Negative (Negative) Urine Nitrite Negative (Negative) Ur Leukocyte Esterase Negative (Negative) Urine RBC 0-2 (0-2) /HPF Urine WBC 0-5 (0-5) /HPF Ur Squamous Epith Cells 3-5 (0-2) /HPF Urine Bacteria None Seen (None Seen) Hyaline Casts 0-2 (0-2) /LPF Salicylates (15-30) mg/dL Urine Opiates Screen Not Detected (Not Detect) Urine Fentanyl Screen Not Detected (Not Detect) Acetaminophen (<30) mcg/mL Ur Barbiturates Screen Not Detected (Not Detect) Ur Phencyclidine Scrn Not Detected (Not Detect) Ur Amphetamines Screen Not Detected (Not Detect) U Benzodiazepines Scrn Not Detected (Not Detect) Urine Cocaine Screen Not Detected (Not Detect) U Marijuana (THC) Screen Not Detected (Not Detect) Ethyl Alcohol mg/dL 05/30/23 05/30/23 05/30/23 Range/Units 11:21 11:21 11:21 WBC (4.8-10.8) X10*3/uL RBC (4.60-5.80) X10*6/uL Hgb (14.0-18.0) g/dl Hct (42.0-52.0) % MCV (80.0-98.0) fL MCH (27.0-33.0) pg MCHC (31.0-36.0) g/dl RDW (11.0-16.0) % Plt Count (160-400) X10*3/uL MPV (9.4-12.4) fL Immature Gran % (Auto) (0.0-0.4) % Neut % (Auto) (45-73) % Lymph % (Auto) (20-40) % [place] % (Auto) (2-11) % Eos % (Auto) (0-4) % Baso % (Auto) (0-2) % Lymph # (Auto) (1.2-4.9) X10*3/uL [place] # (Auto) (0.1-1.2) X10*3/uL Eos # (Auto) (0.0-0.4) X10*3/uL Baso # (Auto) (0.0-0.2) X10*3/uL Abs Immat Gran (auto) (0.00-0.03) X10*3/uL Absolute Neuts (auto) (2.0-8.3) x10*3/uL Absolute Nucleated RBC (0.0-0.012) X10*3/uL Nucleated RBC % (auto) (0.0-0.2) /100WBC Sodium 138 (135-145) mmol/L Potassium 4.3 (3.3-5.1) mmol/L Chloride 102 (96-108) mmol/L Carbon Dioxide 27 (22-29) mmol/L Anion Gap 13 (12-20) BUN 10 (9-16) mg/dL Creatinine 0.68 (0.5-1.4) mg/dL Estim Creat Clear Calc 177.8 Estimated GFR > 60 Random Glucose 299 H (60-115) mg/dL Calcium 9.1 (8.4-10.2) mg/dL Total Bilirubin 0.2 (0.0-1.0) mg/dL AST 82 H (5-37) U/L ALT 69 H (0-40) U/L Alkaline Phosphatase 93 (39-117) U/L Troponin I High Sens (<3.5-35.0) ng/L Total Protein 7.7 (6.5-8.0) g/dL Albumin 3.9 (3.5-5.0) g/dL Urine Color Urine Appearance Urine pH (5.0-9.0) Ur Specific [place] (1.005-1.025) Urine Protein (Neg-Trace) mg/dL Urine Glucose (UA) (Negative) mg/dL Urine Ketones (Negative) mg/dL Urine Blood (Negative) Urine Nitrite (Negative) Ur Leukocyte Esterase (Negative) Urine RBC (0-2) /HPF Urine WBC (0-5) /HPF Ur Squamous Epith Cells (0-2) /HPF Urine Bacteria (None Seen) Hyaline Casts (0-2) /LPF Salicylates < 5.0 L (15-30) mg/dL Urine Opiates Screen (Not Detect) Urine Fentanyl Screen (Not Detect) Acetaminophen < 17 (<30) mcg/mL Ur Barbiturates Screen (Not Detect) Ur Phencyclidine Scrn (Not Detect) Ur Amphetamines Screen (Not Detect) U Benzodiazepines Scrn (Not Detect) Urine Cocaine Screen (Not Detect) U Marijuana (THC) Screen (Not Detect) Ethyl Alcohol 15 mg/dL 05/30/23 05/30/23 Range/Units 11:21 13:13 WBC (4.8-10.8) X10*3/uL RBC (4.60-5.80) X10*6/uL Hgb (14.0-18.0) g/dl Hct (42.0-52.0) % MCV (80.0-98.0) fL MCH (27.0-33.0) pg MCHC (31.0-36.0) g/dl RDW (11.0-16.0) % Plt Count (160-400) X10*3/uL MPV (9.4-12.4) fL Immature Gran % (Auto) (0.0-0.4) % Neut % (Auto) (45-73) % Lymph % (Auto) (20-40) % [place] % (Auto) (2-11) % Eos % (Auto) (0-4) % Baso % (Auto) (0-2) % Lymph # (Auto) (1.2-4.9) X10*3/uL [place] # (Auto) (0.1-1.2) X10*3/uL Eos # (Auto) (0.0-0.4) X10*3/uL Baso # (Auto) (0.0-0.2) X10*3/uL Abs Immat Gran (auto) (0.00-0.03) X10*3/uL Absolute Neuts (auto) (2.0-8.3) x10*3/uL Absolute Nucleated RBC (0.0-0.012) X10*3/uL Nucleated RBC % (auto) (0.0-0.2) /100WBC Sodium (135-145) mmol/L Potassium (3.3-5.1) mmol/L Chloride (96-108) mmol/L Carbon Dioxide (22-29) mmol/L Anion Gap (12-20) BUN (9-16) mg/dL Creatinine (0.5-1.4) mg/dL Estim Creat Clear Calc Estimated GFR Random Glucose (60-115) mg/dL Calcium (8.4-10.2) mg/dL Total Bilirubin (0.0-1.0) mg/dL AST (5-37) U/L ALT (0-40) U/L Alkaline Phosphatase (39-117) U/L Troponin I High Sens 12.9 12.3 (<3.5-35.0) ng/L Total Protein (6.5-8.0) g/dL Albumin (3.5-5.0) g/dL Urine Color Urine Appearance Urine pH (5.0-9.0) Ur Specific [place] (1.005-1.025) Urine Protein (Neg-Trace) mg/dL Urine Glucose (UA) (Negative) mg/dL Urine Ketones (Negative) mg/dL Urine Blood (Negative) Urine Nitrite (Negative) Ur Leukocyte Esterase (Negative) Urine RBC (0-2) /HPF Urine WBC (0-5) /HPF Ur Squamous Epith Cells (0-2) /HPF Urine Bacteria (None Seen) Hyaline Casts (0-2) /LPF Salicylates (15-30) mg/dL Urine Opiates Screen (Not Detect) Urine Fentanyl Screen (Not Detect) Acetaminophen (<30) mcg/mL Ur Barbiturates Screen (Not Detect) Ur Phencyclidine Scrn (Not Detect) Ur Amphetamines Screen (Not Detect) U Benzodiazepines Scrn (Not Detect) Urine Cocaine Screen (Not Detect) U Marijuana (THC) Screen (Not Detect) Ethyl Alcohol mg/dL Independent Interpretation I performed an independent interpretation of an: EKG (Normal sinus rhythm heart rate 93, sinus arrhythmia, low-voltage EKG, poor precordial progression.) and Plain X-Ray (Chest: No acute cardiopulmonary disease) Independent Historian Clinical information obtained from an independent historian. History obtained from or confirmed by: EMS External Record Review External record reviewed: Inpatient record Prescription Management I considered prescription management with: Pain Medication Chronic Conditions Patient?s care impacted by: Hypertension Critical Care Time Critical Care Time Critical Care Time: Yes Total Critical Care Time: 40 Attestation: Approximately 40 minutes of critical care time was spent with patient including evaluation of chest pain given his cardiac history, suicidal ideation. Time was spent in bedside assessment, reassessment, medical management, interpretation and medical data, chart review, documentation and extensive discussion with patient regarding his conditions. Discharge Plan Discharge Clinical Impression: MDD (major depressive disorder), recurrent episode, moderate, Chest pain Patient Disposition: Still a Patient Prescriptions: No Action acetaminophen 325 mg Tablet 650 mg PO Q6H PRN (Reason: Headache/Pain Mild Scale (1-3)) Qty: 60 0RF carvedilol 12.5 mg Tablet 12.5 mg PO BID Qty: 60 0RF Protocol: Hold for SBP/HR < HOLD for SBP < : 90 HOLD for HR < : 60 trazodone 50 mg Tablet 50 mg PO BEDTIME MRX1 PRN (Reason: Insomnia) Qty: 60 0RF gabapentin 300 mg Capsule 300 mg PO BEDTIME Qty: 30 0RF ibuprofen 600 mg Tablet 600 mg PO TIDWM PRN (Reason: Pain, Moderate(Pain Scale 4-6)) Qty: 90 0RF multivitamin [Daily-Loren] Tablet 1 tab PO DAILY Qty: 30 0RF lidocaine [Lidocaine Pain Relief] 4 % Adhesive Patch,Medicated 1 patch transdermal DAILY Qty: 30 0RF Protocol: Apply to: Apply to: right flank melatonin 3 mg Tablet 6 mg PO BEDTIME PRN (Reason: Insomnia) Qty: 60 0RF thiamine mononitrate (vit B1) 100 mg Tablet 100 mg PO DAILY Qty: 30 0RF furosemide 40 mg tablet 40 mg PO DAILY Qty: 30 0RF atorvastatin 40 mg tablet 40 mg PO BEDTIME Qty: 30 0RF metformin 500 mg tablet 500 mg PO BID Qty: 60 0RF hydroxyzine pamoate 50 mg capsule 50 mg PO BID PRN (Reason: anxiety) Qty: 60 0RF losartan 25 mg tablet 25 mg PO DAILY Qty: 30 0RF albuterol sulfate [Ventolin HFA] 90 mcg/actuation Hfa Aerosol Inhaler 1 puff inhalation RQ4H PRN (Reason: Shortness Of Breath) 30 Days Qty: 1 0RF escitalopram oxalate 20 mg tablet 20 mg PO DAILY Qty: 30 0RF lorazepam [Ativan] 0.5 mg tablet 0.5 mg PO BID PRN (Reason: anxiety) Qty: 15 0RF Rx Instructions: Take one tablet twice daily as needed for anxiety for 5 days, then take one tablet daily as needed for anxiety for 5 days, then discontinue potassium chloride 10 mEq capsule, extended release 10 meq PO DAILY Interventions: [place]-Suicide Risk Severity Scale Last Done: 05/30/23 10:22
[2023-05-30 11:28] LABS: MANUAL DIFF FLAG NO
[2023-05-30 11:32] LABS: Basophils Absolute Auto 0.1 X10*3/uL (0.0-0.2); Eosinophils Absolute Auto 0.1 X10*3/uL (0.0-0.4); Eosinophils Percent Auto 1.4 % (0-4); Hematocrit 42.5 % (42.0-52.0); Hemoglobin 13.7 g/dl (14.0-18.0); Imm Gran Abs Auto 0.04 X10*3/uL (0.00-0.03); Imm Gran Pct Auto 0.5 % (0.0-0.4); Lymphocytes Absolute Auto 1.7 X10*3/uL (1.2-4.9); Lymphocytes Percent Auto 21.5 % (20-40); Mean Corpuscular HGB Conc 32.2 g/dl (31.0-36.0); Mean Corpuscular Hemoglobin 29.8 pg (27.0-33.0); Mean Corpuscular Volume 92.4 fL (80.0-98.0); Mean Platelet Volume 10.7 fL (9.4-12.4); Monocytes Absolute Auto 0.5 X10*3/uL (0.1-1.2); Monocytes Percent Auto 6.6 % (2-11); Neutrophils Absolute Auto 5.6 x10*3/uL (2.0-8.3); Platelet Count 241 X10*3/uL (160-400); Red Cell Distribution Width 13.6 % (11.0-16.0); White Blood Count 8.1 X10*3/uL (4.8-10.8)
[2023-05-30] MEDS: carvediloL 12.5 MG TABLET PO (11:32)
[2023-05-30] MEDS: Losartan Potassium 25 MG TABLET PO (11:32)
[2023-05-30] MEDS: metFORMIN HCl ER 500 MG TAB.ER.24H PO (11:32)
[2023-05-30] MEDS: Gabapentin 300 MG CAPSULE PO (11:32)
[2023-05-30] MEDS: Furosemide 40 MG TABLET PO (11:33)
[2023-05-30] MEDS: Escitalopram Oxalate 10 MG TABLET 20 MG PO (11:39)
[2023-05-30 11:47] LABS: Ethanol 15 mg/dL
[2023-05-30 11:48] LABS: Alanine Aminotransferase 69 U/L (0-40); Albumin Level 3.9 g/dL (3.5-5.0); Alkaline Phosphatase 93 U/L (39-117); Anion Gap 13 (12-20); Aspartate Amino Transferase 82 U/L (5-37); Bilirubin Total 0.2 mg/dL (0.0-1.0); Blood Urea Nitrogen 10 mg/dL (9-16); Calcium 9.1 mg/dL (8.4-10.2); Carbon Dioxide 27 mmol/L (22-29); Chloride 102 mmol/L (96-108); Creatinine Clr Calc Pharmacy 177.8; Estimated Glomerular Filt Rate > 60; Glucose Random 299 mg/dL (60-115); Potassium 4.3 mmol/L (3.3-5.1); Sodium 138 mmol/L (135-145); Total Protein 7.7 g/dL (6.5-8.0)
[2023-05-30 11:49] LABS: Acetaminophen LAB < 17 mcg/mL (<30); Salicylate < 5.0 mg/dL (15-30)
[2023-05-30 11:51] LABS: Troponin-I High Sensitivity 12.9 ng/L (<3.5-35.0)
[2023-05-30 13:44] LABS: Troponin-I High Sensitivity 12.3 ng/L (<3.5-35.0)
== END 2023-05-30 19:19 | disposition home or self-care (01) ==
PROVIDERS: Emergency Provider Emergency Medicine
DX: F33.1 Major depressive disorder, recurrent, moderate (principal); R45.851 Suicidal ideations; R07.89 Other chest pain; Z79.899 Other long term (current) drug therapy
CPT/HCPCS: 36415; 71046; 80053; 80143; 80179; 80307; 81001; 84484; 85025; 93005; 99284; S9485

== ENCOUNTER → 2023-05-30 09:21 | Outpatient (BNV) | payer MEDICARE, MEDICAID, SELFPAY | PROVIDERS: Emergency Provider Emergency Medicine; Visit Provider Internal Medicine Cardiovascular Disease | DX: I49.1 Atrial premature depolarization (principal) | CPT/HCPCS: 93010 ==

== ENCOUNTER 2023-06-20 05:05 | Inpatient (IN) | payer MEDICARE, MEDICAID, SELFPAY ==
[2023-06-20] VITALS (7 sets, daily range): BP systolic 136–179; BP diastolic 77–106; PULSE 93–103; RESP 16–24; TEMP 36.8–37; O2SAT 90–97; BMI 59.9
--- NOTE | ~2023-06-20 | XR_ITS ---
EXAMINATION: XR CHEST CLINICAL INFORMATION: Shortness of breath. COMPARISON: 05/30/2023 chest radiographs. TECHNIQUE: 2 views of the chest were obtained. FINDINGS: No significant abnormality is noted involving the heart, lungs, mediastinum, bony thorax or soft tissues. XR/XR chest 2V IMPRESSION: No acute cardiopulmonary process.
--- NOTE | 2023-06-20 06:00 | MHC.EDTECH ---
PATIENT CAME IN VIA EMS ,PATIENT WAS LEAD GENERATION SPECIALIST INTO ([facility] ) PATIENT BELONGING LIST DONE AND BELONGINGS LOCKED UP IN POD ,BLOOD DRAWN AND COVID SWAB COLLECTED AND SENT TO LAB ,PATIENT RESTING QUIETLY IN BED ,PATIENT OBSERVER AT BEDSIDE .
--- NOTE | 2023-06-20 06:23 | ED.GENADULT ---
HPI - General Adult General Chief complaint: Psychiatric Symptoms Stated complaint: Crisis Time Seen by Provider: 06/20/23 06:23 Source: patient, EMS and RN notes reviewed Mode of arrival: EMS Limitations: altered mental status History of Present Illness HPI narrative: Patient is a 52-year-old male with history of systolic heart failure, TERRIE, MDD, alcohol use disorder brought to the emergency department via EMS on a section 12 for suicidal statements. Patient admits to taking his Lexapro last night and drinking alcohol, states that ?in the moment? he was feeling suicidal and called 911. Reports that he quickly changed his mind and called back to attempt to cancel the 911 response but was told that he would need to be transported to the emergency department due to his statements. He denies current suicidal or homicidal ideation, denies any auditory or visual hallucinations. Does endorse nausea. Denies abdominal pain, vomiting, diarrhea, constipation. Denies fevers. MD complaint: Suicidal ideation Onset (ago): hour(s) Treatments prior to arrival: none Related Data Home Medications Medication Instructions Recorded Confirmed potassium chloride 10 mEq 10 meq PO DAILY 05/30/23 06/21/23 capsule,extended release dapagliflozin propanediol 10 mg 10 mg PO DAILY 06/21/23 06/21/23 tablet (Farxiga) furosemide 40 mg tablet 40 mg PO DAILY PRN Edema 06/21/23 06/21/23 Previous Rx's Medication Instructions Recorded albuterol sulfate 90 mcg/actuation 1 puff inhalation RQ4H PRN 05/23/23 aerosol inhaler (Ventolin HFA) Shortness Of Breath 30 days #1 inhaler atorvastatin 40 mg tablet 40 mg PO BEDTIME #30 tabs 05/23/23 carvedilol 12.5 mg tablet 12.5 mg PO BID #60 tabs 05/23/23 escitalopram oxalate 20 mg tablet 20 mg PO DAILY #30 tabs 05/23/23 gabapentin 300 mg capsule 300 mg PO BEDTIME #30 caps 05/23/23 hydroxyzine pamoate 50 mg capsule 50 mg PO BID PRN anxiety #60 caps 05/23/23 ibuprofen 600 mg tablet 600 mg PO TIDWM PRN Pain, 05/23/23 Moderate(Pain Scale 4-6) #90 tabs lorazepam 0.5 mg tablet (Ativan) 0.5 mg PO BID PRN anxiety #15 tabs 05/23/23 losartan 25 mg tablet 25 mg PO DAILY #30 tabs 05/23/23 melatonin 3 mg tablet 6 mg PO BEDTIME PRN Insomnia #60 05/23/23 tabs metformin 500 mg tablet 500 mg PO BID #60 tabs 05/23/23 trazodone 50 mg tablet 50 mg PO BEDTIME MRX1 PRN Insomnia 05/23/23 #60 tabs Allergies Allergy/AdvReac Type Severity Reaction Status Date / Time No Known Allergies Allergy Verified 03/13/23 10:59 Review of Systems Review of Systems: As per HPI. Yes all other systems are reviewed and are negative Constitutional: Constitutional: Reports as per HPI [facility] Past Medical History Medical History Acute gastritis with bleeding Alcohol use disorder, severe, dependence Anxiety Arthritis Depression Diabetes mellitus, type 2 Herniated disc Hypertension Morbid obesity Obesity TERRIE on CPAP PTSD (post-traumatic stress disorder) Sleep apnea Systolic heart failure Family History Family History Mother Diabetes Social History Social History Household Members: None Housing: Apartment Do you presently have visiting nurse or other home services: No Alcohol intake: current Alcohol intake frequency: a few times a month Alcohol type: hard liquor Patient Tobacco Use Status: Never used Tobacco Smoked in Last 30 Days: No e-Cigarette/Vaping Use: Never Used Second Hand Smoke Exposure: No Use of substances other than those prescribed or required for medical reasons: No Substance Use Type: Other Currently Displaying Signs/Symptoms of Drug Intoxication Withdrawal: No Any prior treatment program specific to substance use: No Have you been hit, kicked, punched, or otherwise hurt by someone within the past year? If so, by whom?: No Do you feel safe in your current relationship?: No Current Relationship Is there a partner from a previous relationship who is making you feel unsafe now?: No Are you made to feel afraid or neglected: No Advance Directives: No Advance Directives Information Provided: Yes Healthcare Proxy: No Guardian: No Do you have thoughts of harming others: None Do you have a plan to hurt others: No Plan Recently lost weight without trying: No Nutrition Risks: No Nutritional Risk Poor oral hygiene: No service: Yes ([employer] [id number]) Current occupational status: employed Sexual orientation: Straight/Heterosexual Physical Exam ED Vital Signs: Vital Signs - 24 hr 06/20/23 17:50 06/20/23 23:32 06/21/23 01:31 Pulse Rate 95 93 75 Respiratory Rate 24 H 16 19 Blood Pressure 179/106 H 153/79 H 175/86 H Pulse Oximetry 94 91 L 91 L Oxygen Delivery Method Room Air Room Air Room Air 06/21/23 08:01 Pulse Rate 103 H Respiratory Rate 20 Blood Pressure 164/91 H Pulse Oximetry 92 Oxygen Delivery Method Room Air BMI result Body Mass Index 59.9 Vital signs have been reviewed and appear to be correct. Blood pressure elevated. Heart rate normal. Respiratory rate normal. Temperature normal. Oxygen saturation normal. Const General: cooperative and no acute distress Orientation/consciousness: oriented to person, oriented to place, oriented to time and patient oriented x3 Limitations: no limitations HENMT Head: Yes normocephalic and Yes atraumatic Ears: external ears normal General nose exam: Normal external nose present Face and sinus: Yes face symmetric Mouth: oropharynx normal and moist mucous membranes Throat: Yes uvula midline Eyes Pupils: Equal, round and reactive pupils present Neck Neck: Yes normal visual inspection and Yes supple Resp Effort & Inspection: normal respiratory effort and able to speak in complete sentences Auscultation: clear to auscultation bilaterally Cardio Rate: regular rate Rhythm: regular rhythm Heart sounds: S1 normal heart sound present and S2 normal heart sound present GI Palpation (GI): Soft to palpation and nontender Auscultation: normoactive bowel sounds General: Yes no CVA tenderness Back/Spine/Pelvis Back: no CVA tenderness Skin General skin exam: elasticity normal and turgor normal Neuro General: oriented to person, oriented to place, oriented to time, patient oriented x3, moves all extremities, no focal motor deficits and CN's II-XI intact bilaterally Cranial nerves: Yes Equal, round and reactive pupils present Cognition (Neuro): normal cognition Extrem General: Yes full ROM, Yes no pedal edema and Yes no calf tenderness Psych Appearance: grossly normal Mental Status: mental status grossly normal Speech and movement: Normal speech and movement present Affect: normal affect Attitude: cooperative Thought process: Normal thought process present Thought content: suicidality, no homicidality and no hallucinations Insight: Fair insight present (Psych) Judgement: Fair judgement present (Psych) Course Course Course Narrative: -06/21/23--716--physician observation continued. Patient noted to be satting 91% on RA early this morning, on evaluation patient states he has not taken his Lasix for few days, reports mild SOB & states oxygen runs low typically when this happens, lungs CTA, satting 93% on RA at present. chronic LE edema. Will obtain CXR, BNP and continue home Lasix. Patient was evaluated by CARE team yesterday and recommended inpatient bed search -5102--BNP 224. CXR unremarkable. Patient was double dosed with Lasix today, totaling 80 mg PO Medications Administered Generic Name Dose Route Start Last Admin Trade Name Freq PRN Reason Stop Dose Admin Al Hydroxide/Mg Hydroxide 30 ml 06/21/23 15:54 06/24/23 08:58 Magnesium Hydrox/Alum Hydrox 30 Ml Oral.Susp PO 30 ml Q6H PRN Administration Heartburn/Nausea Aripiprazole 2 mg 06/30/23 09:00 07/01/23 07:54 Aripiprazole 2 Mg Tablet PO 2 mg DAILY TOBY Administration Atorvastatin Calcium 40 mg 06/21/23 21:00 06/30/23 23:10 Atorvastatin Calcium 40 Mg Tablet PO 40 mg BEDTIME TOBY Administration Carvedilol 12.5 mg 06/21/23 09:00 07/01/23 07:53 Carvedilol 12.5 Mg Tablet PO 12.5 mg BID TOBY Administration Protocol Cyanocobalamin 500 mcg 06/23/23 09:00 07/01/23 07:52 Cyanocobalamin (Vitamin B-12) 500 Mcg Tablet PO 500 mcg DAILY TOBY Administration Escitalopram Oxalate 20 mg 06/30/23 09:00 07/01/23 07:52 Escitalopram Oxalate 20 Mg Tablet PO 20 mg DAILY TOBY Administration Folic Acid 1 mg 06/23/23 09:00 07/01/23 07:53 Folic Acid 1 Mg Tablet PO 1 mg DAILY TOBY Administration Furosemide 40 mg 06/24/23 09:00 07/01/23 07:52 Furosemide 40 Mg Tablet PO 40 mg DAILY TOBY Administration Protocol Gabapentin 300 mg 06/21/23 21:00 06/30/23 23:09 Gabapentin 300 Mg Capsule PO 300 mg BEDTIME TOBY Administration Gabapentin 100 mg 06/27/23 09:00 07/01/23 07:54 Gabapentin 100 Mg Capsule PO 100 mg 0900,1500 TOBY Administration Hydroxyzine HCl 50 mg 06/21/23 09:21 06/27/23 20:25 Hydroxyzine Hcl 50 Mg Tablet PO 50 mg BID PRN Administration anxiety Insulin Human Lispro 0 unit 06/23/23 16:30 07/01/23 08:21 Insulin Lispro 100 Unit/Ml 3 Ml Vial SUBCUT 6 unit QIDACHS COUNT INCLUDES THE [facility] Administration Protocol Losartan Potassium 25 mg 06/21/23 09:00 07/01/23 07:52 Losartan Potassium 25 Mg Tablet PO 25 mg DAILY TOBY Administration Protocol Melatonin 6 mg 06/21/23 09:21 06/30/23 23:08 Melatonin 3 Mg Tablet PO 6 mg BEDTIME PRN Administration Insomnia Metformin HCl 500 mg 06/21/23 09:00 07/01/23 07:55 Metformin Hcl 500 Mg Tablet PO 500 mg BID TOBY Administration Multivitamins/Vitamin C 1 tab 06/23/23 09:00 07/01/23 07:52 Multivitamin Tablet PO 1 tab DAILY TOBY Administration Omeprazole 20 mg 06/25/23 06:30 07/01/23 07:53 Omeprazole 20 Mg Capsule. PO 20 mg DAILY@0630 COUNT INCLUDES THE [facility] Administration Potassium Chloride 10 meq 06/21/23 09:00 07/01/23 07:54 Potassium Chloride Er 10 Meq Tablet.Er PO 10 meq DAILY TOBY Administration Discontinued Medications Generic Name Dose Route Start Last Admin Trade Name Freq PRN Reason Stop Dose Admin Al Hydroxide/Mg Hydroxide 30 ml 06/20/23 16:59 06/20/23 17:48 Magnesium Hydrox/Alum Hydrox 30 Ml Oral.Susp PO 06/20/23 17:00 30 ml ONCE ONE Administration Al Hydroxide/Mg Hydroxide 30 ml 06/21/23 07:16 06/21/23 07:42 Magnesium Hydrox/Alum Hydrox 30 Ml Oral.Susp PO 06/21/23 07:17 30 ml ONCE ONE Administration Carvedilol 12.5 mg 06/20/23 17:54 06/20/23 18:03 Carvedilol 12.5 Mg Tablet PO 06/20/23 17:55 12.5 mg ONCE ONE Administration Protocol Escitalopram Oxalate 20 mg 06/21/23 09:30 06/21/23 11:03 Escitalopram Oxalate 20 Mg Tablet PO 20 mg DAILY TOBY Administration Furosemide 40 mg 06/21/23 07:23 06/21/23 07:42 Furosemide 40 Mg Tablet PO 06/21/23 07:24 40 mg ONCE ONE Administration Protocol Furosemide 40 mg 06/21/23 09:21 06/23/23 10:08 Furosemide 40 Mg Tablet PO 40 mg DAILY PRN Administration Edema Protocol Gabapentin 300 mg 06/21/23 07:00 06/21/23 09:06 Gabapentin 300 Mg Capsule PO Not Given BEDTIME COUNT INCLUDES THE [facility] Insulin Human Lispro 0 unit 06/22/23 11:30 06/23/23 08:59 Insulin Lispro 100 Unit/Ml 3 Ml Vial SUBCUT 06/23/23 10:25 2 unit QIDACHS COUNT INCLUDES THE [facility] Administration Protocol Lidocaine HCl 15 ml 06/20/23 16:59 06/20/23 17:48 Lidocaine Hcl Viscous 2 % 15 Ml Solution MUCOUS MEM 06/20/23 17:00 15 ml ONCE ONE Administration Lorazepam 0.5 mg 06/21/23 09:21 06/25/23 22:59 Lorazepam 0.5 Mg Tablet PO 0.5 mg BID PRN Administration anxiety Lorazepam 0.5 mg 06/26/23 13:32 06/26/23 21:55 Lorazepam 0.5 Mg Tablet PO 0.5 mg Q8H PRN Administration withdrawal, anxiety Losartan Potassium 25 mg 06/20/23 17:54 06/20/23 18:03 Losartan Potassium 25 Mg Tablet PO 06/20/23 17:55 25 mg ONCE ONE Administration Protocol Omeprazole 20 mg 06/23/23 16:30 06/24/23 06:33 Omeprazole 20 Mg Capsule.Dr PO 20 mg BID@0630,8030 COUNT INCLUDES THE [facility] Administration Ondansetron HCl 4 mg 06/20/23 07:18 06/20/23 07:34 Ondansetron Odt 4 Mg Tab.Rapdis TRANSLINGU 06/20/23 07:19 4 mg ONCE ONE Administration Ondansetron HCl 4 mg 06/20/23 12:16 06/20/23 12:23 Ondansetron Odt 4 Mg Tab.Rapdis TRANSLINGU 06/20/23 12:17 4 mg ONCE ONE Administration Ondansetron HCl 4 mg 06/20/23 16:59 06/20/23 17:48 Ondansetron Odt 4 Mg Tab.Rapdis TRANSLINGU 06/20/23 17:00 4 mg ONCE ONE Administration Sertraline HCl 25 mg 06/23/23 09:00 06/26/23 08:53 Sertraline Hcl 25 Mg Tablet PO 25 mg DAILY TOBY Administration Sertraline HCl 50 mg 06/27/23 09:00 06/29/23 09:34 Sertraline Hcl 50 Mg Tablet PO 50 mg DAILY TOBY Administration Medical Decision Making Medical Decision Making [facility] Narrative: Patient is a 52-year-old male with history of systolic heart failure, TERRIE, MDD, alcohol use disorder brought to the emergency department via EMS on a section 12 for suicidal statements. On exam patient is awake, A+Ox3, VS WNL, afebrile, normal neurological exam without focal deficits, abdomen soft and nontender. Given reported symptoms and physical exam findings, initial differential includes suicidal ideation, depression, anxiety, alcohol use disorder. Labs notable for ETOH of 250, otherwise unremarkable. Will order ondansetron for nausea. Will clear medically when clinically sober. CARE team eval placed. 12:18 Patient clinically sober, will medically clear for CARE team eval and place on physician observation. Differential Diagnosis Differential Diagnoses: The differential diagnosis associated with the presentation includes As per MDM. Admission/Observation Consideration of admission/observation: Escalation of care including admission/observation considered Lab Data [facility] Lab Attestation statement: I reviewed the patient's lab results. As per MDM. 06/20/23 06:28 06/20/23 06:29 Labs: Lab Results 06/20/23 06/20/23 06/20/23 Range/Units 06:28 06:29 06:29 WBC 5.3 (4.8-10.8) X10*3/uL RBC 4.59 L (4.60-5.80) X10*6/uL Hgb 13.8 L (14.0-18.0) g/dl Hct 42.6 (42.0-52.0) % MCV 92.8 (80.0-98.0) fL MCH 30.1 (27.0-33.0) pg MCHC 32.4 (31.0-36.0) g/dl RDW 15.0 (11.0-16.0) % Plt Count 245 (160-400) X10*3/uL MPV 9.8 (9.4-12.4) fL Immature Gran % (Auto) 0.2 (0.0-0.4) % Neut % (Auto) 52.4 (45-73) % Lymph % (Auto) 32.1 (20-40) % [place] % (Auto) 12.3 H (2-11) % Eos % (Auto) 1.9 (0-4) % Baso % (Auto) 1.1 (0-2) % Lymph # (Auto) 1.7 (1.2-4.9) X10*3/uL [place] # (Auto) 0.7 (0.1-1.2) X10*3/uL Eos # (Auto) 0.1 (0.0-0.4) X10*3/uL Baso # (Auto) 0.1 (0.0-0.2) X10*3/uL Abs Immat Gran (auto) 0.01 (0.00-0.03) X10*3/uL Absolute Neuts (auto) 2.8 (2.0-8.3) x10*3/uL Absolute Nucleated RBC 0.000 (0.0-0.012) X10*3/uL Nucleated RBC % (auto) 0.0 (0.0-0.2) /100WBC Sodium 141 (135-145) mmol/L Potassium 4.1 (3.3-5.1) mmol/L Chloride 101 (96-108) mmol/L Carbon Dioxide 29 (22-29) mmol/L Anion Gap 15 (12-20) BUN 7 L (9-16) mg/dL Creatinine 0.62 (0.5-1.4) mg/dL Estim Creat Clear Calc 248.1 Estimated GFR > 60 Random Glucose 193 H (60-115) mg/dL Calcium 8.1 L D (8.4-10.2) mg/dL Magnesium 2.2 (1.6-2.6) mg/dL Total Bilirubin 0.4 (0.0-1.0) mg/dL Direct Bilirubin 0.2 (0.0-0.5) mg/dL AST 29 (5-37) U/L ALT 26 (0-40) U/L Alkaline Phosphatase 72 (39-117) U/L Total Protein 7.1 (6.5-8.0) g/dL Albumin 3.5 (3.5-5.0) g/dL Urine Color Urine Appearance Urine pH (5.0-9.0) Ur Specific [place] (1.005-1.025) Urine Protein (Neg-Trace) mg/dL Urine Glucose (UA) (Negative) mg/dL Urine Ketones (Negative) mg/dL Urine Blood (Negative) Urine Nitrite (Negative) Ur Leukocyte Esterase (Negative) Urine Opiates Screen (Not Detect) Urine Fentanyl Screen (Not Detect) Ur Barbiturates Screen (Not Detect) Ur Phencyclidine Scrn (Not Detect) Ur Amphetamines Screen (Not Detect) U Benzodiazepines Scrn (Not Detect) Urine Cocaine Screen (Not Detect) U Marijuana (THC) Screen (Not Detect) Ethyl Alcohol 250 mg/dL COVID-19 (DIDIER) Negative (Negative) COVID-19 Clin Com See Note 06/20/23 06/21/23 Range/Units 07:18 09:16 WBC (4.8-10.8) X10*3/uL RBC (4.60-5.80) X10*6/uL Hgb (14.0-18.0) g/dl Hct (42.0-52.0) % MCV (80.0-98.0) fL MCH (27.0-33.0) pg MCHC (31.0-36.0) g/dl RDW (11.0-16.0) % Plt Count (160-400) X10*3/uL MPV (9.4-12.4) fL Immature Gran % (Auto) (0.0-0.4) % Neut % (Auto) (45-73) % Lymph % (Auto) (20-40) % [place] % (Auto) (2-11) % Eos % (Auto) (0-4) % Baso % (Auto) (0-2) % Lymph # (Auto) (1.2-4.9) X10*3/uL [place] # (Auto) (0.1-1.2) X10*3/uL Eos # (Auto) (0.0-0.4) X10*3/uL Baso # (Auto) (0.0-0.2) X10*3/uL Abs Immat Gran (auto) (0.00-0.03) X10*3/uL Absolute Neuts (auto) (2.0-8.3) x10*3/uL Absolute Nucleated RBC (0.0-0.012) X10*3/uL Nucleated RBC % (auto) (0.0-0.2) /100WBC Sodium (135-145) mmol/L Potassium (3.3-5.1) mmol/L Chloride (96-108) mmol/L Carbon Dioxide (22-29) mmol/L Anion Gap (12-20) BUN (9-16) mg/dL Creatinine (0.5-1.4) mg/dL Estim Creat Clear Calc Estimated GFR Random Glucose (60-115) mg/dL Calcium (8.4-10.2) mg/dL Magnesium (1.6-2.6) mg/dL Total Bilirubin (0.0-1.0) mg/dL Direct Bilirubin (0.0-0.5) mg/dL AST (5-37) U/L ALT (0-40) U/L Alkaline Phosphatase (39-117) U/L Total Protein (6.5-8.0) g/dL Albumin (3.5-5.0) g/dL Urine Color Yellow Urine Appearance Clear Urine pH 6.5 (5.0-9.0) Ur Specific [place] 1.010 (1.005-1.025) Urine Protein Trace (Neg-Trace) mg/dL Urine Glucose (UA) Negative (Negative) mg/dL Urine Ketones Negative (Negative) mg/dL Urine Blood Negative (Negative) Urine Nitrite Negative (Negative) Ur Leukocyte Esterase Negative (Negative) Urine Opiates Screen Not Detected (Not Detect) Urine Fentanyl Screen Not Detected (Not Detect) Ur Barbiturates Screen POSITIVE H (Not Detect) Ur Phencyclidine Scrn Not Detected (Not Detect) Ur Amphetamines Screen Not Detected (Not Detect) U Benzodiazepines Scrn Not Detected (Not Detect) Urine Cocaine Screen Not Detected (Not Detect) U Marijuana (THC) Screen Not Detected (Not Detect) Ethyl Alcohol mg/dL COVID-19 (DIDIER) (Negative) COVID-19 Clin Com Independent Historian Clinical information obtained from an independent historian. History obtained from or confirmed by: EMS External Record Review External record reviewed: Inpatient record, Office record and Outpatient record Discharge Plan Discharge Clinical Impression: Suicidal ideation Patient Disposition: Admitted As Inpatient Interventions: Admission Worksheet (ED) Last Done: 06/21/23 16:21 Discharge Date/Time: 06/21/23 16:21
[2023-06-20 06:32] LABS: MANUAL DIFF FLAG NO
[2023-06-20 06:35] LABS: Basophils Absolute Auto 0.1 X10*3/uL (0.0-0.2); Basophils Percent Auto 1.1 % (0-2); Eosinophils Absolute Auto 0.1 X10*3/uL (0.0-0.4); Eosinophils Percent Auto 1.9 % (0-4); Hematocrit 42.6 % (42.0-52.0); Hemoglobin 13.8 g/dl (14.0-18.0); Imm Gran Abs Auto 0.01 X10*3/uL (0.00-0.03); Imm Gran Pct Auto 0.2 % (0.0-0.4); Lymphocytes Absolute Auto 1.7 X10*3/uL (1.2-4.9); Lymphocytes Percent Auto 32.1 % (20-40); Mean Corpuscular HGB Conc 32.4 g/dl (31.0-36.0); Mean Corpuscular Hemoglobin 30.1 pg (27.0-33.0); Mean Corpuscular Volume 92.8 fL (80.0-98.0); Mean Platelet Volume 9.8 fL (9.4-12.4); Monocytes Absolute Auto 0.7 X10*3/uL (0.1-1.2); Monocytes Percent Auto 12.3 % (2-11); Neutrophils Absolute Auto 2.8 x10*3/uL (2.0-8.3); Neutrophils Percent Auto 52.4 % (45-73); Platelet Count 245 X10*3/uL (160-400); Red Blood Count 4.59 X10*6/uL (4.60-5.80); White Blood Count 5.3 X10*3/uL (4.8-10.8)
[2023-06-20 06:45] LABS: COVID-19 Test Negative (Negative); IDNOW Serial# 6674DD1D
[2023-06-20 06:47] LABS: Alanine Aminotransferase 26 U/L (0-40); Albumin Level 3.5 g/dL (3.5-5.0); Alkaline Phosphatase 72 U/L (39-117); Anion Gap 15 (12-20); Aspartate Amino Transferase 29 U/L (5-37); Bilirubin Direct 0.2 mg/dL (0.0-0.5); Bilirubin Total 0.4 mg/dL (0.0-1.0); Blood Urea Nitrogen 7 mg/dL (9-16); Calcium 8.1 mg/dL (8.4-10.2); Carbon Dioxide 29 mmol/L (22-29); Chloride 101 mmol/L (96-108); Creatinine Clr Calc Pharmacy 248.1; Estimated Glomerular Filt Rate > 60; Ethanol 250 mg/dL; Glucose Random 193 mg/dL (60-115); Magnesium 2.2 mg/dL (1.6-2.6); Potassium 4.1 mmol/L (3.3-5.1); Sodium 141 mmol/L (135-145); Total Protein 7.1 g/dL (6.5-8.0)
[2023-06-20] MEDS: Ondansetron ODT 4 MG TAB.RAPDIS TRANSLINGU ×3 (07:34→17:48)
--- NOTE | 2023-06-20 07:45 | PC.NURSE ---
pt axox4, respirations even and unlabored, nsr on monitor 92 bpm, sats 93% on 2L NC, skin wpd. pt reported nausea, pt medicated per mar. pt denies si/hi at this time. sitter at bedside. denies any questions/concerns at this time. call decker within reach.
[2023-06-20 08:19] LABS: Amphetamine Screen Urine Not Detected (Not Detect); Barbiturates, Urine POSITIVE (Not Detect); Benzodiazepines Screen Urine Not Detected (Not Detect); Cannabinoid Screen Urine Not Detected (Not Detect); Cocaine Screen Urine Not Detected (Not Detect); Fentanyl, urine Not Detected (Not Detect); Opiate Screen Urine Not Detected (Not Detect); Phencyclidine Screen Urine Not Detected (Not Detect)
--- NOTE | 2023-06-20 08:28 | MHC.EDTECH ---
Pt was transferred into hospital bed, 1 assist, tolerated well. Resting quietly in bed, call decker within reach.
--- NOTE | 2023-06-20 14:17 | PC.NURSE ---
pt reports nausea/dry heaving with small amount of pink-tinged sputum. provider notified.
[2023-06-20] MEDS: Magnesium Hydrox/Alum Hydrox 30 ML ORAL.SUSP PO (17:48)
[2023-06-20] MEDS: Lidocaine HCl Viscous 2 % 15 ML SOLUTION MUCOUS MEM (17:48)
--- NOTE | 2023-06-20 17:57 | PC.NURSE ---
HTN, Dr Mccormick aware, meds ordered. Pt still awaiting CARE team consult. Denies SI or HI at this time. Calm and cooperative. Pt reports acid reflux sx, requesting Maalox and given. Pt observer remains at bedside
[2023-06-20] MEDS: carvediloL 12.5 MG TABLET PO (18:03)
[2023-06-20] MEDS: Losartan Potassium 25 MG TABLET PO (18:03)
--- NOTE | 2023-06-20 21:57 | MHC.CARE ---
Due to Pt high BAL, he won't be interviewable until 12:30am.
--- NOTE | 2023-06-21 | ECG_ITS ---
Test Reason : psych meds Blood Pressure : / mmHG Vent. Rate : 097 BPM Atrial Rate : 097 BPM P-R Int : 156 ms QRS Dur : 090 ms QT Int : 412 ms P-R-T Axes : 044 260 -07 degrees QTc Int : 523 ms Sinus rhythm with occasional Premature ventricular complexes Low voltage QRS Possible Anterolateral infarct (cited on or before 24-DEC-2022) Prolonged QT Abnormal ECG When compared with ECG of 30-MAY-2023 09:21, Premature ventricular complexes are now Present Aberrant conduction is no longer Present Inverted T waves have replaced nonspecific T wave abnormality in Inferior leads Referred By: Naomi Cabrera Electronically Signed By:Daniel Major
--- NOTE | 2023-06-21 00:10 | PC.NURSE ---
assumed care of pt at 2315. pt sitting up in chair. pt tells this RN he sleeps with cpap at night. respiratory therapist called to place pt on cpap per providers orders. patient waiting to be seen by care team. will ctm.
--- NOTE | 2023-06-21 01:17 | PC.NURSE ---
care team came to see patient - care team decided pt will e reevaluated in the AM for safe discharge planning. pt unwilling to go inpatient at this time. possible livestock judging coach consult in AM.
[2023-06-21 01:31] VITALS: BP 175/86; PULSE 75; RESP 19; O2SAT 91
[2023-06-21] MEDS: Furosemide 40 MG TABLET PO (07:42)
[2023-06-21] MEDS: Magnesium Hydrox/Alum Hydrox 30 ML ORAL.SUSP PO (07:42)
--- NOTE | 2023-06-21 07:46 | PC.NURSE ---
pt brought to xray with security officer supervisor
[2023-06-21 08:01] VITALS: BP 164/91; PULSE 103; RESP 20; O2SAT 92
--- NOTE | 2023-06-21 08:47 | PHA.MEDREC ---
Pharmacy Consult ? Medication Reconciliation Pharmacy has completed the medication reconciliation. Pt unable to name medications on his own, but able to confirm PRNs vs maintenance when going through the list. Stated he last took most of his medications about 4 days ago.
[2023-06-21 09:22] LABS: Appearance Urine Clear; Color Urine Yellow; Glucose Urine UA Negative (Negative); Leukocyte Esterase Urine Negative (Negative); Nitrite Urine Negative (Negative); PH 6.5 (5.0-9.0); Urine Blood Negative (Negative); Urine Ketones Negative (Negative); Urine Protein Trace mg/dL (Neg-Trace)
[2023-06-21] MEDS: Escitalopram Oxalate 20 MG TABLET PO (11:03)
[2023-06-21] MEDS: metFORMIN HCl 500 MG TABLET PO ×2 (11:03→21:42)
[2023-06-21] MEDS: Potassium Chloride ER 10 MEQ TABLET.ER PO (11:03)
[2023-06-21] MEDS: Losartan Potassium 25 MG TABLET PO (11:03)
[2023-06-21] MEDS: carvediloL 12.5 MG TABLET PO ×2 (11:03→21:42)
[2023-06-21 14:37] LABS: B Type Natriuretic Peptide 224 pg/mL (<100)
[2023-06-21 16:20] VITALS: BP 163/81; PULSE 89; RESP 18; TEMP 37.1; O2SAT 93
--- NOTE | 2023-06-21 21:35 | PC.ADMIT ---
Addendum entered by Shelia Delcid RN 06/21/23 22:18: EKG completed in ED QT 412 QTC 523 Sinus rhythm with occasional Premature ventricular complexes Low voltage QRS Possible Anterolateral infarct (cited on or before 24-DEC-2022) Prolonged QT Abnormal ECG Original Note: PT is a 52 year old Ukrainian speaking black male that arrived on this unit at 16:17 from the [facility] and was placed on 15 minute safety checks. Legal status: conditional voluntary. PT presented to the ED via ambulance after calling EMS for suicidal ideation. Once first responders arrived, pt tried to rescind his statements however he was sectioned by the [facility]. PT has a hx of multiple IPLOC admissions through this facility, [facility] and the [place] with the most recent being [facility] in May of this year. PT reports binge drinking to deal with his emotions, the last binge was a three day period in which he is unable to quantify other than stating a pint of hard liquor plus some four locos PT is a poor historian and is difficult to engage regarding alcohol use. CIWAs ordered every 4 hours. PT is denying any withdrawal symptoms at this time. PT denies any illicit substance use however UDS was positive for barbituates. PT is a non smoker and has a chronic medical history including morbid obesity, type II diabetes, systolic heart failure, hypoxia, obstructive sleep apnea in which pt does use a CPAP when he's not drinking alcohol, and uncontrolled hypertension. PT reports med non compliance related to his mental health. PTs housing is currently stable but he reports he is in danger of having his car repossessed and this will create a burden for him. PT reports he does have a therapist through the [place] that he will see for his initial appt at the end of July. PT currently lives alone and does have adult children but their relationship is very strained. PT has minimal supports. PT is currently denying SI/HI, AH/VH. Legals signed, safety tool and tx plan completed. Promote safety and begin treatment plan.
[2023-06-21 21:40] VITALS: BP 155/93; PULSE 89; RESP 18; TEMP 37.2; O2SAT 94
[2023-06-21] MEDS: Melatonin 3 MG TABLET 6 MG PO (21:41)
[2023-06-21] MEDS: Atorvastatin Calcium 40 MG TABLET PO (21:42)
[2023-06-21] MEDS: Gabapentin 300 MG CAPSULE PO (21:42)
[2023-06-21] MEDS: LORazepam 0.5 MG TABLET PO (22:28)
--- NOTE | 2023-06-22 03:52 | PC.NURSE ---
PT refused CPAP on the overnight shift, education provided. PT woke up once to take a shower and the back to bed. No issues reported.
[2023-06-22 09:15] VITALS: BP 168/90; PULSE 94; RESP 18; TEMP 35.8; O2SAT 98
[2023-06-22 09:24] LABS: Estimated Average Glucose 174 mg/dL; Hemoglobin A1c % 7.7 %
[2023-06-22] MEDS: metFORMIN HCl 500 MG TABLET PO (09:27)
[2023-06-22] MEDS: carvediloL 12.5 MG TABLET PO ×2 (09:27→20:45)
[2023-06-22] MEDS: Losartan Potassium 25 MG TABLET PO (09:27)
[2023-06-22] MEDS: Potassium Chloride ER 10 MEQ TABLET.ER PO (09:28)
[2023-06-22 09:29] LABS: Cholesterol 132 mg/dL; HDL Cholesterol 40 mg/dL; LDL Cholesterol Calculated 24 mg/dl; Magnesium 1.8 mg/dL (1.6-2.6); Triglycerides 344 mg/dL
[2023-06-22 09:44] LABS: Free T4 (Free Thyroxine) 1.08 ng/dL (0.71-1.85); Thyroid Stimulating Hormone 1.11 uIU/mL (0.32-4.0)
[2023-06-22 09:59] LABS: Folate 9.8 ng/mL (> or = 4.0); Vitamin B12 181 pg/mL (200-900)
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
[2023-06-22 12:15] LABS: Glucose, Whole Blood 211 mg/dL (60-115)
[2023-06-22] MEDS: Insulin Lispro 100 UNIT/ML 3 ML VIAL SUBCUT ×2 (12:39→22:06)
--- NOTE | 2023-06-22 13:05 | P.DS_ITS ---
DS: Providers Provider Date of admission: 06/21/23 13:51 Primary care physician: Unknown Physician DS: Medications Discharge Medications Home Medications: Home Medications Medication Instructions Recorded Confirmed potassium chloride 10 mEq 10 meq PO DAILY 05/30/23 06/21/23 capsule,extended release dapagliflozin propanediol 10 mg 10 mg PO DAILY 06/21/23 06/21/23 tablet (Farxiga) furosemide 40 mg tablet 40 mg PO DAILY PRN Edema 06/21/23 06/21/23 Previous Rx's Medication Instructions Recorded albuterol sulfate 90 mcg/actuation 1 puff inhalation RQ4H PRN 05/23/23 aerosol inhaler (Ventolin HFA) Shortness Of Breath 30 days #1 inhaler atorvastatin 40 mg tablet 40 mg PO BEDTIME #30 tabs 05/23/23 carvedilol 12.5 mg tablet 12.5 mg PO BID #60 tabs 05/23/23 escitalopram oxalate 20 mg tablet 20 mg PO DAILY #30 tabs 05/23/23 gabapentin 300 mg capsule 300 mg PO BEDTIME #30 caps 05/23/23 hydroxyzine pamoate 50 mg capsule 50 mg PO BID PRN anxiety #60 caps 05/23/23 ibuprofen 600 mg tablet 600 mg PO TIDWM PRN Pain, 05/23/23 Moderate(Pain Scale 4-6) #90 tabs lorazepam 0.5 mg tablet (Ativan) 0.5 mg PO BID PRN anxiety #15 tabs 05/23/23 losartan 25 mg tablet 25 mg PO DAILY #30 tabs 05/23/23 melatonin 3 mg tablet 6 mg PO BEDTIME PRN Insomnia #60 05/23/23 tabs metformin 500 mg tablet 500 mg PO BID #60 tabs 05/23/23 trazodone 50 mg tablet 50 mg PO BEDTIME MRX1 PRN Insomnia 05/23/23 #60 tabs Data Data Completed and Pending Completed studies during hospitalization [Text1]: 06/20/23 06/20/23 06/20/23 06:28 06:29 06:29 WBC 5.3 RBC 4.59 L Hgb 13.8 L Hct 42.6 MCV 92.8 MCH 30.1 MCHC 32.4 RDW 15.0 Plt Count 245 MPV 9.8 Immature Gran % (Auto) 0.2 Neut % (Auto) 52.4 Lymph % (Auto) 32.1 [place] % (Auto) 12.3 H Eos % (Auto) 1.9 Baso % (Auto) 1.1 Lymph # (Auto) 1.7 [place] # (Auto) 0.7 Eos # (Auto) 0.1 Baso # (Auto) 0.1 Abs Immat Gran (auto) 0.01 Absolute Neuts (auto) 2.8 Absolute Nucleated RBC 0.000 Nucleated RBC % (auto) 0.0 Sodium 141 Potassium 4.1 Chloride 101 Carbon Dioxide 29 Anion Gap 15 BUN 7 L Creatinine 0.62 Estim Creat Clear Calc 248.1 Estimated GFR > 60 POC Glucose Random Glucose 193 H Estimat Average Glucose Hemoglobin A1c % Calcium 8.1 L D Magnesium 2.2 Total Bilirubin 0.4 Direct Bilirubin 0.2 AST 29 ALT 26 Alkaline Phosphatase 72 B-Natriuretic Peptide Total Protein 7.1 Albumin 3.5 Triglycerides Cholesterol LDL Cholesterol, Calc HDL Cholesterol Vitamin B12 Folate TSH Free T4 Urine Color Urine Appearance Urine pH Ur Specific [place] Urine Protein Urine Glucose (UA) Urine Ketones Urine Blood Urine Nitrite Ur Leukocyte Esterase Urine Opiates Screen Urine Fentanyl Screen Ur Barbiturates Screen Ur Phencyclidine Scrn Ur Amphetamines Screen U Benzodiazepines Scrn Urine Cocaine Screen U Marijuana (THC) Screen Ethyl Alcohol 250 COVID-19 (DIDIER) Negative COVID-19 Clin Com See Note 06/20/23 06/21/23 06/21/23 07:18 09:16 14:05 WBC RBC Hgb Hct MCV MCH MCHC RDW Plt Count MPV Immature Gran % (Auto) Neut % (Auto) Lymph % (Auto) [place] % (Auto) Eos % (Auto) Baso % (Auto) Lymph # (Auto) [place] # (Auto) Eos # (Auto) Baso # (Auto) Abs Immat Gran (auto) Absolute Neuts (auto) Absolute Nucleated RBC Nucleated RBC % (auto) Sodium Potassium Chloride Carbon Dioxide Anion Gap BUN Creatinine Estim Creat Clear Calc Estimated GFR POC Glucose Random Glucose Estimat Average Glucose Hemoglobin A1c % Calcium Magnesium Total Bilirubin Direct Bilirubin AST ALT Alkaline Phosphatase B-Natriuretic Peptide 224 H Total Protein Albumin Triglycerides Cholesterol LDL Cholesterol, Calc HDL Cholesterol Vitamin B12 Folate TSH Free T4 Urine Color Yellow Urine Appearance Clear Urine pH 6.5 Ur Specific [place] 1.010 Urine Protein Trace Urine Glucose (UA) Negative Urine Ketones Negative Urine Blood Negative Urine Nitrite Negative Ur Leukocyte Esterase Negative Urine Opiates Screen Not Detected Urine Fentanyl Screen Not Detected Ur Barbiturates Screen POSITIVE H Ur Phencyclidine Scrn Not Detected Ur Amphetamines Screen Not Detected U Benzodiazepines Scrn Not Detected Urine Cocaine Screen Not Detected U Marijuana (THC) Screen Not Detected Ethyl Alcohol COVID-19 (DIDIER) COVID-19 Clin Com 06/22/23 06/22/23 06/22/23 08:44 08:44 08:44 WBC RBC Hgb Hct MCV MCH MCHC RDW Plt Count MPV Immature Gran % (Auto) Neut % (Auto) Lymph % (Auto) [place] % (Auto) Eos % (Auto) Baso % (Auto) Lymph # (Auto) [place] # (Auto) Eos # (Auto) Baso # (Auto) Abs Immat Gran (auto) Absolute Neuts (auto) Absolute Nucleated RBC Nucleated RBC % (auto) Sodium Potassium Chloride Carbon Dioxide Anion Gap BUN Creatinine Estim Creat Clear Calc Estimated GFR POC Glucose Random Glucose Estimat Average Glucose 174 Hemoglobin A1c % 7.7 Calcium Magnesium 1.8 Total Bilirubin Direct Bilirubin AST ALT Alkaline Phosphatase B-Natriuretic Peptide Total Protein Albumin Triglycerides 344 Cholesterol 132 LDL Cholesterol, Calc 24 HDL Cholesterol 40 Vitamin B12 181 L Folate 9.8 TSH 1.11 Free T4 1.08 Urine Color Urine Appearance Urine pH Ur Specific [place] Urine Protein Urine Glucose (UA) Urine Ketones Urine Blood Urine Nitrite Ur Leukocyte Esterase Urine Opiates Screen Urine Fentanyl Screen Ur Barbiturates Screen Ur Phencyclidine Scrn Ur Amphetamines Screen U Benzodiazepines Scrn Urine Cocaine Screen U Marijuana (THC) Screen Ethyl Alcohol COVID-19 (DIDIER) COVID-19 Clin Com 06/22/23 12:10 WBC RBC Hgb Hct MCV MCH MCHC RDW Plt Count MPV Immature Gran % (Auto) Neut % (Auto) Lymph % (Auto) [place] % (Auto) Eos % (Auto) Baso % (Auto) Lymph # (Auto) [place] # (Auto) Eos # (Auto) Baso # (Auto) Abs Immat Gran (auto) Absolute Neuts (auto) Absolute Nucleated RBC Nucleated RBC % (auto) Sodium Potassium Chloride Carbon Dioxide Anion Gap BUN Creatinine Estim Creat Clear Calc Estimated GFR POC Glucose 211 H Random Glucose Estimat Average Glucose Hemoglobin A1c % Calcium Magnesium Total Bilirubin Direct Bilirubin AST ALT Alkaline Phosphatase B-Natriuretic Peptide Total Protein Albumin Triglycerides Cholesterol LDL Cholesterol, Calc HDL Cholesterol Vitamin B12 Folate TSH Free T4 Urine Color Urine Appearance Urine pH Ur Specific [place] Urine Protein Urine Glucose (UA) Urine Ketones Urine Blood Urine Nitrite Ur Leukocyte Esterase Urine Opiates Screen Urine Fentanyl Screen Ur Barbiturates Screen Ur Phencyclidine Scrn Ur Amphetamines Screen U Benzodiazepines Scrn Urine Cocaine Screen U Marijuana (THC) Screen Ethyl Alcohol COVID-19 (DIDIER) COVID-19 Clin Com Imaging Diagnostic Imaging Impressions Chest X-Ray 06/21/23 07:57 IMPRESSION: No acute cardiopulmonary process. DS: Summary Time Spent with Patient Time attestation: Total time managing care of this patient today ____ minutes. Discharge Plan Discharge Referrals: Physician,Unknown J [Primary Care Provider] - 1 Week Discharge Medications: No Action carvedilol 12.5 mg Tablet 12.5 mg PO BID Qty: 60 0RF Protocol: Hold for SBP/HR < HOLD for SBP < : 90 HOLD for HR < : 60 trazodone 50 mg Tablet 50 mg PO BEDTIME MRX1 PRN (Reason: Insomnia) Qty: 60 0RF gabapentin 300 mg Capsule 300 mg PO BEDTIME Qty: 30 0RF ibuprofen 600 mg Tablet 600 mg PO TIDWM PRN (Reason: Pain, Moderate(Pain Scale 4-6)) Qty: 90 0RF melatonin 3 mg Tablet 6 mg PO BEDTIME PRN (Reason: Insomnia) Qty: 60 0RF atorvastatin 40 mg tablet 40 mg PO BEDTIME Qty: 30 0RF metformin 500 mg tablet 500 mg PO BID Qty: 60 0RF hydroxyzine pamoate 50 mg capsule 50 mg PO BID PRN (Reason: anxiety) Qty: 60 0RF losartan 25 mg tablet 25 mg PO DAILY Qty: 30 0RF albuterol sulfate [Ventolin HFA] 90 mcg/actuation Hfa Aerosol Inhaler 1 puff inhalation RQ4H PRN (Reason: Shortness Of Breath) 30 Days Qty: 1 0RF escitalopram oxalate 20 mg tablet 20 mg PO DAILY Qty: 30 0RF lorazepam [Ativan] 0.5 mg tablet 0.5 mg PO BID PRN (Reason: anxiety) Qty: 15 0RF Rx Instructions: Take one tablet twice daily as needed for anxiety for 5 days, then take one tablet daily as needed for anxiety for 5 days, then discontinue potassium chloride 10 mEq capsule, extended release 10 meq PO DAILY Farxiga 10 mg tablet 10 mg PO DAILY furosemide 40 mg tablet 40 mg PO DAILY PRN (Reason: Edema)
[2023-06-22] MEDS: Magnesium Hydrox/Alum Hydrox 30 ML ORAL.SUSP PO ×2 (14:33→20:26)
[2023-06-22 18:00] VITALS: BP 160/88; PULSE 96; RESP 20; TEMP 36.4; O2SAT 98
[2023-06-22] MEDS: Atorvastatin Calcium 40 MG TABLET PO (20:45)
[2023-06-22] MEDS: Gabapentin 300 MG CAPSULE PO (20:45)
[2023-06-22 22:01] LABS: Glucose, Whole Blood 205 mg/dL (60-115)
[2023-06-23 08:14] LABS: Glucose, Whole Blood 146 mg/dL (60-115)
[2023-06-23] MEDS: metFORMIN HCl 500 MG TABLET PO ×2 (08:58→22:34)
[2023-06-23] MEDS: Losartan Potassium 25 MG TABLET PO (08:58)
[2023-06-23] MEDS: Multivitamin TABLET 1 TAB PO (08:58)
[2023-06-23] MEDS: Insulin Lispro 100 UNIT/ML 3 ML VIAL SUBCUT ×3 (08:59→22:35)
[2023-06-23] MEDS: Magnesium Hydrox/Alum Hydrox 30 ML ORAL.SUSP PO (09:07)
[2023-06-23 09:10] VITALS: BP 110/61; PULSE 86; TEMP 36.4; O2SAT 90
[2023-06-23] MEDS: Sertraline HCL 25 MG TABLET PO (09:14)
[2023-06-23] MEDS: Furosemide 40 MG TABLET PO (10:08)
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
--- NOTE | 2023-06-23 12:19 | P.PNPSI_ITS ---
Subjective Subjective Date of Service: 06/23/23 Reason For Visit: Recurrent major depression, alcohol use disorder Subjective Notes: Conditional Voluntary and 3 Day Healthcare Proxy: No Guardianship: No Medical Problems Affecting Mental Status: No Interim History: Chest pain is improved. Seen by cardiology today which is much appreciated. Pt feeling better about the pain and received increased education which he is grateful for. [facility] ~6 weeks. He will attend and is looking for step one information. Addictions consult requested. Chloe returned to scheduled per pt request. Tolerating Sertraline Reports he slept ~7 hours with CPAP!! Medication Compliance: Yes Side effects from medications: No Attending Groups: Yes Review of Systems Acute medical concerns: No Medical Review of Systems: unchanged Mental Status Exam Mental Status Exam Patient Appearance: Fatigued Patient Orientation: Person, Place, Time and Situation Level of Consciousness: Alert Patient Behavior: Appropriate, Talkative, Cooperative and Good Eye Contact Mood Description: Withdrawn, Depressed, Fearful and Apprehensive Affect Description: Flat Patient Cognition Impaired: No Ability to Follow Directions: Good Speech Pattern: Spontaneous Speech Memory Description: Episodic Impaired Hallucinations: None Delusions: Not Present Perceptual Disturbances: Depersonalization and Derealization Thought Process: Rumination Thought Content: positive for Circum[place], positive for Perseveration and p ositive for Suicidal Ideation (denies, yet aware his actions relay the opposite message) Depressive Symptoms: Loss of Int. in Activity, Feelings of Worthlessness, Hopelessness, Isolating-Friends/Family, Unhappiness, Increased Fatigue, Thoughts of /Suicide, Loss of Energy, Difficulty Concentrating and Back Pain Abnormal Motor Activity Signs and Symptoms: Restlessness Judgement: Fair Diagnostics Vital Signs (24Hr): Vital Signs - 24 hr 06/22/23 18:00 06/23/23 09:10 Temperature 97.5 F 97.5 F Pulse Rate 96 86 Respiratory Rate 20 Blood Pressure 160/88 H 110/61 Pulse Oximetry 98 90 L Oxygen Delivery Method Room Air Room Air BMI result Body Mass Index 59.9 Labs 06/20/23 06:28 06/20/23 06:29 Labs: Laboratory Results - last 48 hr 06/21/23 06/22/23 06/22/23 14:05 08:44 08:44 POC Glucose Estimat Average Glucose 174 Hemoglobin A1c % 7.7 Magnesium 1.8 B-Natriuretic Peptide 224 H Triglycerides 344 Cholesterol 132 LDL Cholesterol, Calc 24 HDL Cholesterol 40 Vitamin B12 Folate TSH 1.11 Free T4 1.08 06/22/23 06/22/23 06/22/23 08:44 12:10 21:57 POC Glucose 211 H 205 H Estimat Average Glucose Hemoglobin A1c % Magnesium B-Natriuretic Peptide Triglycerides Cholesterol LDL Cholesterol, Calc HDL Cholesterol Vitamin B12 181 L Folate 9.8 TSH Free T4 06/23/23 08:10 POC Glucose 146 H Estimat Average Glucose Hemoglobin A1c % Magnesium B-Natriuretic Peptide Triglycerides Cholesterol LDL Cholesterol, Calc HDL Cholesterol Vitamin B12 Folate TSH Free T4 Imaging Radiology Impressions: ITS Impressions Chest X-Ray 06/21/23 07:57 IMPRESSION: No acute cardiopulmonary process. Medications Medications Current Medications Acetaminophen (Acetaminophen 325 Mg Tablet) 650 mg PO Q6H PRN PRN Reason: Headache/Pain Mild Scale (1-3) Al Hydroxide/Mg Hydroxide (Magnesium Hydrox/Alum Hydrox 30 Ml Oral.Susp) 30 ml PO Q6H PRN PRN Reason: Heartburn/Nausea Last Admin: 06/23/23 09:07 Dose: 30 ml Albuterol Sulfate (Albuterol Sulfate 90 Mcg 8 Gm Inhaler) 1 puff INHALE RQ4H PRN PRN Reason: Shortness Of Breath Atorvastatin Calcium (Atorvastatin Calcium 40 Mg Tablet) 40 mg PO BEDTIME [facility] Last Admin: 06/22/23 20:45 Dose: 40 mg Carvedilol (Carvedilol 12.5 Mg Tablet) 12.5 mg PO BID TO[facility]; Protocol Last Admin: 06/23/23 09:13 Dose: Not Given Cyanocobalamin (Cyanocobalamin (Vitamin B-12) 500 Mcg Tablet) 500 mcg PO DAILY [facility] Last Admin: 06/23/23 09:13 Dose: Not Given Dextrose (Dextrose 50 % 25 Gm/50 Ml Syringe) 25 gm IVPUSH Q15M PRN; Protocol PRN Reason: per Hypoglycemia Standing Ord. Folic Acid (Folic Acid 1 Mg Tablet) 1 mg PO DAILY [facility] Last Admin: 06/23/23 09:13 Dose: Not Given Furosemide (Furosemide 40 Mg Tablet) 40 mg PO DAILY [facility]; Protocol Gabapentin (Gabapentin 300 Mg Capsule) 300 mg PO BEDTIME [facility] Last Admin: 06/22/23 20:45 Dose: 300 mg Glucose (Glucose Gel 15 Gm Gel..Gram.) 15 gm PO Q15M PRN; Protocol PRN Reason: per Hypoglycemia Standing Ord. Hydroxyzine HCl (Hydroxyzine Hcl 50 Mg Tablet) 50 mg PO BID PRN PRN Reason: anxiety Hydroxyzine HCl (Hydroxyzine Hcl 25 Mg Tablet) 25 mg PO Q6H PRN PRN Reason: Anxiety Ibuprofen (Ibuprofen 600 Mg Tablet) 600 mg PO TIDWM PRN PRN Reason: Pain, Moderate(Pain Scale 4-6) Lorazepam (Lorazepam 0.5 Mg Tablet) 0.5 mg PO BID PRN PRN Reason: anxiety Last Admin: 06/21/23 22:28 Dose: 0.5 mg Lorazepam (Lorazepam 1 Mg Tablet) 1 mg PO Q4H PRN PRN Reason: ciwa 8-12 Lorazepam (Lorazepam 1 Mg Tablet) 2 mg PO Q4H PRN PRN Reason: ciwa 13-17 Losartan Potassium (Losartan Potassium 25 Mg Tablet) 25 mg PO DAILY TOBY; Pro tocol Last Admin: 06/23/23 08:58 Dose: 25 mg Magnesium Hydroxide (Milk Of Magnesia 30 Ml Oral.Susp) 30 ml PO DAILY PRN PRN Reason: Constipation Melatonin (Melatonin 3 Mg Tablet) 6 mg PO BEDTIME PRN PRN Reason: Insomnia Last Admin: 06/21/23 21:41 Dose: 6 mg Metformin HCl (Metformin Hcl 500 Mg Tablet) 500 mg PO BID [facility] Last Admin: 06/23/23 08:58 Dose: 500 mg Multivitamins/Vitamin C (Multivitamin Tablet) 1 tab PO DAILY [facility] Last Admin: 06/23/23 08:58 Dose: 1 tab Omeprazole (Omeprazole 20 Mg Capsule.Dr) 20 mg PO BID@0630,1630 [facility] Potassium Chloride (Potassium Chloride Er 10 Meq Tablet.Er) 10 meq PO DAILY [facility] Last Admin: 06/23/23 09:33 Dose: Not Given Sertraline HCl (Sertraline Hcl 25 Mg Tablet) 25 mg PO DAILY [facility] Last Admin: 06/23/23 09:14 Dose: 25 mg Trazodone HCl (Trazodone Hcl 50 Mg Tablet) 50 mg PO BEDTIME MRX1 PRN PRN Reason: Insomnia Trazodone HCl (Trazodone Hcl 50 Mg Tablet) 50 mg PO BEDTIME MRX1 PRN PRN Reason: Insomnia Allergies Allergies Allergy/AdvReac Type Severity Reaction Status Date / Time No Known Allergies Allergy Verified 03/13/23 10:59 Assessment & Plan Assessment & Plan (1) MDD (major depressive disorder), recurrent episode, moderate: Status: Acute Code(s): F33.1 - Major depressive disorder, recurrent, moderate Assessment and Plan: Continue current plan of care and regime (2) Alcohol use disorder, severe, dependence: Status: Acute Code(s): F10.20 - Alcohol dependence, uncomplicated Assessment and Plan: Referral to [place] 6 week in pt program. Plan [age] year gentleman background systolic heart failure. He has background of alcoholism and nonischemic cardiomyopathy. He had angiogram before by his report and was told that he does not have any coronary disease. He has no anginal chest discomfort currently. Does not look significantly volume overloaded. I think he should stay on his home medications including carvedilol, Lasix daily 40 mg and losartan. Blood pressure is high then losartan can be titrated to a target blood pressure less than 130/80. 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 Thank you for allowing me to participate in the care of your patient. Please feel free to contact me if you have any questions. Patient educated on: medication risk/benefits, therapeutic strategies and medical condition Informed Consent: understands and further education needed Reason for continued inpatient stay Substantial Risk for: harm to self and med/psych decompensation Time Spent With Patient Time: Total time managing care of this patient today ____ minutes.
[2023-06-23 12:25] LABS: Glucose, Whole Blood 188 mg/dL (60-115)
[2023-06-23 18:00] VITALS: BP 156/90; PULSE 90; RESP 18; TEMP 37; O2SAT 93
[2023-06-23] MEDS: Omeprazole 20 MG CAPSULE.DR PO (19:13)
--- NOTE | 2023-06-23 20:05 | MHC.RECOVSUP ---
? Reason for consult:ETOH o? Current location:506-1? o? Identified substance use concern:? -? Support ?? Intervention: o? Community resources provided ? Plan:Outpatient treatment ? Additional information:JALEN met with this pt and discussed treatment options, this pt stated he wants to obtain a recovery room nurse and seek therapy, JALEN provided outpatient recovery resources and agreed to connect with this pt on Monday morning to complete a referral and assign a recovery room nurse.
[2023-06-23 20:09] LABS: Glucose, Whole Blood 181 mg/dL (60-115)
[2023-06-23] MEDS: carvediloL 12.5 MG TABLET PO (22:33)
[2023-06-23] MEDS: Melatonin 3 MG TABLET 6 MG PO (22:34)
[2023-06-23] MEDS: Gabapentin 300 MG CAPSULE PO (22:34)
[2023-06-23] MEDS: Atorvastatin Calcium 40 MG TABLET PO (22:34)
[2023-06-24] MEDS: Omeprazole 20 MG CAPSULE.DR PO (06:33)
[2023-06-24 08:30] LABS: Glucose, Whole Blood 170 mg/dL (60-115)
[2023-06-24] MEDS: Magnesium Hydrox/Alum Hydrox 30 ML ORAL.SUSP PO (08:58)
[2023-06-24] MEDS: Cyanocobalamin (Vitamin B-12) 500 MCG TABLET PO (08:59)
[2023-06-24] MEDS: Potassium Chloride ER 10 MEQ TABLET.ER PO (08:59)
[2023-06-24] MEDS: carvediloL 12.5 MG TABLET PO (08:59)
[2023-06-24] MEDS: Losartan Potassium 25 MG TABLET PO (08:59)
[2023-06-24] MEDS: Sertraline HCL 25 MG TABLET PO (08:59)
[2023-06-24] MEDS: metFORMIN HCl 500 MG TABLET PO ×2 (08:59→22:03)
[2023-06-24] MEDS: Furosemide 40 MG TABLET PO (08:59)
[2023-06-24] MEDS: Insulin Lispro 100 UNIT/ML 3 ML VIAL SUBCUT ×4 (08:59→20:56)
[2023-06-24] MEDS: Folic Acid 1 MG TABLET PO (08:59)
[2023-06-24 09:06] VITALS: BP 124/82; PULSE 97; RESP 18; TEMP 36.8; O2SAT 96
[2023-06-24] MEDS: Multivitamin TABLET 1 TAB PO (10:04)
--- NOTE | 2023-06-24 11:33 | HO.PSYCHPN ---
Subjective Subjective Date of Service: 06/24/23 Reason For Visit: Recurrent major depression, alcohol use disorder Subjective Notes: Conditional Voluntary Interim History: The nursing staff reported the patient had been compliant with treatment, his fasting blood sugar was or 118 receive coverage by insulin. He is on CIWA q.4 hours but so far he scored only 3. He complained also of GI issues but most likely rate related to Prilosec. On interview, the patient denies new symptoms he denies side effects with the current medication besides GI symptoms with Prilosec. No suicidal thoughts. Mental Status Exam Mental Status Exam Patient Appearance: Appropriate Patient Orientation: Person, Place and Situation Level of Consciousness: Awake and Appropriate Patient Behavior: Guarded and Passive Mood Description: Calm Affect Description: Constricted Patient Cognition Impaired: No Ability to Follow Directions: Good Speech Pattern: Clear Hallucinations: None Delusions: Not Present Thought Process: Linear Thought Content: positive for Circumstantial Judgement: Fair Diagnostics Vital Signs (24Hr): Vital Signs - 24 hr 06/23/23 18:00 06/24/23 09:06 Temperature 98.6 F 98.3 F Pulse Rate 90 97 Respiratory Rate 18 18 Blood Pressure 156/90 H 124/82 Pulse Oximetry 93 96 Oxygen Delivery Method Room Air BMI result Body Mass Index 59.9 Labs 06/20/23 06:28 06/20/23 06:29 Labs: Laboratory Results - last 48 hr 06/22/23 06/22/23 06/23/23 12:10 21:57 08:10 POC Glucose 211 H 205 H 146 H 06/23/23 06/23/23 06/24/23 12:21 20:05 08:26 POC Glucose 188 H 181 H 170 H Imaging Radiology Impressions: ITS Impressions Chest X-Ray 06/21/23 07:57 IMPRESSION: No acute cardiopulmonary process. Medications Medications Current Medications Acetaminophen (Acetaminophen 325 Mg Tablet) 650 mg PO Q6H PRN PRN Reason: Headache/Pain Mild Scale (1-3) Al Hydroxide/Mg Hydroxide (Magnesium Hydrox/Alum Hydrox 30 Ml Oral.Susp) 30 ml PO Q6H PRN PRN Reason: Heartburn/Nausea Last Admin: 06/24/23 08:58 Dose: 30 ml Albuterol Sulfate (Albuterol Sulfate 90 Mcg 8 Gm Inhaler) 1 puff INHALE RQ4H PRN PRN Reason: Shortness Of Breath Atorvastatin Calcium (Atorvastatin Calcium 40 Mg Tablet) 40 mg PO BEDTIME [facility] Last Admin: 06/23/23 22:34 Dose: 40 mg Carvedilol (Carvedilol 12.5 Mg Tablet) 12.5 mg PO BID [facility]; Protocol Last Admin: 06/24/23 08:59 Dose: 12.5 mg Cyanocobalamin (Cyanocobalamin (Vitamin B-12) 500 Mcg Tablet) 500 mcg PO DAILY [facility] Last Admin: 06/24/23 08:59 Dose: 500 mcg Dextrose (Dextrose 50 % 25 Gm/50 Ml Syringe) 25 gm IVPUSH Q15M PRN; Protocol PRN Reason: per Hypoglycemia Standing Ord. Dextrose (Dextrose 50 % 25 Gm/50 Ml Syringe) 25 gm IVPUSH Q15M PRN; Protocol PRN Reason: per Hypoglycemia Standing Ord. Folic Acid (Folic Acid 1 Mg Tablet) 1 mg PO DAILY [facility] Last Admin: 06/24/23 08:59 Dose: 1 mg Furosemide (Furosemide 40 Mg Tablet) 40 mg PO DAILY [facility]; Protocol Last Admin: 06/24/23 08:59 Dose: 40 mg Gabapentin (Gabapentin 300 Mg Capsule) 300 mg PO BEDTIME [facility] Last Admin: 06/23/23 22:34 Dose: 300 mg Glucose (Glucose Gel 15 Gm Gel..Gram.) 15 gm PO Q15M PRN; Protocol PRN Reason: per Hypoglycemia Standing Ord. Glucose (Glucose Gel 15 Gm Gel..Gram.) 15 gm PO Q15M PRN; Protocol PRN Reason: per Hypoglycemia Standing Ord. Hydroxyzine HCl (Hydroxyzine Hcl 50 Mg Tablet) 50 mg PO BID PRN PRN Reason: anxiety Hydroxyzine HCl (Hydroxyzine Hcl 25 Mg Tablet) 25 mg PO Q6H PRN PRN Reason: Anxiety Ibuprofen (Ibuprofen 600 Mg Tablet) 600 mg PO TIDWM PRN PRN Reason: Pain, Moderate(Pain Scale 4-6) Insulin Human Lispro (Insulin Lispro 100 Unit/Ml 3 Ml Vial) 0 unit SUBCUT QIDACHS [facility]; Protocol Last Admin: 06/24/23 08:59 Dose: 2 unit Lorazepam (Lorazepam 0.5 Mg Tablet) 0.5 mg PO BID PRN PRN Reason: anxiety Last Admin: 06/21/23 22:28 Dose: 0.5 mg Lorazepam (Lorazepam 1 Mg Tablet) 1 mg PO Q4H PRN PRN Reason: ciwa 8-12 Lorazepam (Lorazepam 1 Mg Tablet) 2 mg PO Q4H PRN PRN Reason: ciwa 13-17 Losartan Potassium (Losartan Potassium 25 Mg Tablet) 25 mg PO DAILY [facility]; Protocol Last Admin: 06/24/23 08:59 Dose: 25 mg Magnesium Hydroxide (Milk Of Magnesia 30 Ml Oral.Susp) 30 ml PO DAILY PRN PRN Reason: Constipation Melatonin (Melatonin 3 Mg Tablet) 6 mg PO BEDTIME PRN PRN Reason: Insomnia Last Admin: 06/23/23 22:34 Dose: 6 mg Metformin HCl (Metformin Hcl 500 Mg Tablet) 500 mg PO BID [facility] Last Admin: 06/24/23 08:59 Dose: 500 mg Multivitamins/Vitamin C (Multivitamin Tablet) 1 tab PO DAILY [facility] Last Admin: 06/24/23 10:04 Dose: 1 tab Omeprazole (Omeprazole 20 Mg Capsule.Dr) 20 mg PO BID@0630,1630 [facility] Last Admin: 06/24/23 06:33 Dose: 20 mg Potassium Chloride (Potassium Chloride Er 10 Meq Tablet.Er) 10 meq PO DAILY [facility] Last Admin: 06/24/23 08:59 Dose: 10 meq Sertraline HCl (Sertraline Hcl 25 Mg Tablet) 25 mg PO DAILY [facility] Last Admin: 06/24/23 08:59 Dose: 25 mg Trazodone HCl (Trazodone Hcl 50 Mg Tablet) 50 mg PO BEDTIME MRX1 PRN PRN Reason: Insomnia Trazodone HCl (Trazodone Hcl 50 Mg Tablet) 50 mg PO BEDTIME MRX1 PRN PRN Reason: Insomnia Allergies Allergies Allergy/AdvReac Type Severity Reaction Status Date / Time No Known Allergies Allergy Verified 03/13/23 10:59 Assessment & Plan Assessment & Plan (1) MDD (major depressive disorder), recurrent episode, moderate: Status: Acute Code(s): F33.1 - Major depressive disorder, recurrent, moderate Assessment and Plan: Continue current plan of care and regime (2) Alcohol use disorder, severe, dependence: Status: Acute Code(s): F10.20 - Alcohol dependence, uncomplicated Assessment and Plan: Referral to [place] 6 week in pt program. Plan [age] year gentleman background systolic heart failure. He has background of alcoholism and nonischemic cardiomyopathy. He had angiogram before by his report and was told that he does not have any coronary disease. He has no anginal chest discomfort currently. Does not look significantly volume overloaded. I think he should stay on his home medications including carvedilol, Lasix daily 40 mg and losartan. Blood pressure is high then losartan can be titrated to a target blood pressure less than 130/80. 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 Thank you for allowing me to participate in the care of your patient. Please feel free to contact me if you have any questions. Plan 06/24 lower Located [facility] keep rest the same Reason for continued inpatient stay Substantial Risk for: inability to function, rapid decompensation and med/psych decompensation Time Spent With Patient Time: Total time managing care of this patient today __20__ minutes.
[2023-06-24 12:30] LABS: Glucose, Whole Blood 211 mg/dL (60-115)
[2023-06-24 17:37] LABS: Glucose, Whole Blood 185 mg/dL (60-115)
[2023-06-24 18:00] VITALS: BP 127/71; PULSE 92; TEMP 36.2; O2SAT 92
[2023-06-24 20:54] LABS: Glucose, Whole Blood 183 mg/dL (60-115)
[2023-06-24] MEDS: Atorvastatin Calcium 40 MG TABLET PO (22:04)
[2023-06-24] MEDS: Gabapentin 300 MG CAPSULE PO (22:04)
[2023-06-25 06:00] VITALS: BP 147/79; PULSE 87; RESP 147; O2SAT 93
[2023-06-25] MEDS: Omeprazole 20 MG CAPSULE.DR PO (06:42)
[2023-06-25 08:16] LABS: Glucose, Whole Blood 178 mg/dL (60-115)
[2023-06-25] MEDS: Insulin Lispro 100 UNIT/ML 3 ML VIAL SUBCUT ×4 (08:42→22:54)
[2023-06-25] MEDS: Multivitamin TABLET 1 TAB PO (08:44)
[2023-06-25] MEDS: Losartan Potassium 25 MG TABLET PO (08:44)
[2023-06-25] MEDS: carvediloL 12.5 MG TABLET PO ×2 (08:44→22:55)
[2023-06-25] MEDS: Cyanocobalamin (Vitamin B-12) 500 MCG TABLET PO (08:44)
[2023-06-25] MEDS: Sertraline HCL 25 MG TABLET PO (08:44)
[2023-06-25] MEDS: metFORMIN HCl 500 MG TABLET PO ×2 (08:44→22:55)
[2023-06-25] MEDS: Furosemide 40 MG TABLET PO (08:44)
[2023-06-25] MEDS: Folic Acid 1 MG TABLET PO (08:44)
[2023-06-25] MEDS: Potassium Chloride ER 10 MEQ TABLET.ER PO (08:45)
--- NOTE | 2023-06-25 11:30 | MHC.RECOVSUP ---
Met with pt in 506 for a consult request providing pt with 12 steps. Pt informs he would like a printout of the 1st step to go over while he is here and that he has a RC in the community to help him with it going forward. T/W provided pt with a print out of the 1st step of the 12 steps. Pt has no other questions or concerns at this time.
--- NOTE | 2023-06-25 11:53 | P.PNPSI_ITS ---
Subjective Subjective Date of Service: 06/25/23 Reason For Visit: Recurrent major depression, alcohol use disorder Subjective Notes: Conditional Voluntary Interim History: The nursing staff reported that today in the morning the patient scored sero on the CIWA. Yesterday he scored 3. On interview the patient denies new symptoms he feels very well, visible in the unit, attending to groups. No changes in his mental status. Mental Status Exam Mental Status Exam Patient Appearance: Appropriate Patient Orientation: Person, Place and Situation Level of Consciousness: Awake and Appropriate Patient Behavior: Guarded and Passive Mood Description: Calm Affect Description: Constricted Patient Cognition Impaired: No Ability to Follow Directions: Good Speech Pattern: Clear Hallucinations: None Delusions: Not Present Thought Process: Distracted and Linear Thought Content: positive for [place] and positive for Circumstantial Judgement: Fair Diagnostics Vital Signs (24Hr): Vital Signs - 24 hr 06/24/23 18:00 06/25/23 06:00 Temperature 97.2 F Pulse Rate 92 87 Respiratory Rate 147 H Blood Pressure 127/71 147/79 H Pulse Oximetry 92 93 Oxygen Delivery Method Room Air Room Air BMI result Body Mass Index 59.9 Labs 06/20/23 06:28 06/20/23 06:29 Labs: Laboratory Results - last 48 hr 06/23/23 06/23/23 06/24/23 12:21 20:05 08:26 POC Glucose 188 H 181 H 170 H 06/24/23 06/24/23 06/24/23 12:26 17:32 20:51 POC Glucose 211 H 185 H 183 H 06/25/23 08:12 POC Glucose 178 H Imaging Radiology Impressions: ITS Impressions Chest X-Ray 06/21/23 07:57 IMPRESSION: No acute cardiopulmonary process. Medications Medications Current Medications Acetaminophen (Acetaminophen 325 Mg Tablet) 650 mg PO Q6H PRN PRN Reason: Headache/Pain Mild Scale (1-3) Al Hydroxide/Mg Hydroxide (Magnesium Hydrox/Alum Hydrox 30 Ml Oral.Susp) 30 ml PO Q6H PRN PRN Reason: Heartburn/Nausea Last Admin: 06/24/23 08:58 Dose: 30 ml Albuterol Sulfate (Albuterol Sulfate 90 Mcg 8 Gm Inhaler) 1 puff INHALE RQ4H PRN PRN Reason: Shortness Of Breath Atorvastatin Calcium (Atorvastatin Calcium 40 Mg Tablet) 40 mg PO BEDTIME [facility] Last Admin: 06/24/23 22:04 Dose: 40 mg Carvedilol (Carvedilol 12.5 Mg Tablet) 12.5 mg PO BID [facility]; Protocol Last Admin: 06/25/23 08:44 Dose: 12.5 mg Cyanocobalamin (Cyanocobalamin (Vitamin B-12) 500 Mcg Tablet) 500 mcg PO DAILY [facility] Last Admin: 06/25/23 08:44 Dose: 500 mcg Dextrose (Dextrose 50 % 25 Gm/50 Ml Syringe) 25 gm IVPUSH Q15M PRN; Protocol PRN Reason: per Hypoglycemia Standing Ord. Dextrose (Dextrose 50 % 25 Gm/50 Ml Syringe) 25 gm IVPUSH Q15M PRN; Protocol PRN Reason: per Hypoglycemia Standing Ord. Folic Acid (Folic Acid 1 Mg Tablet) 1 mg PO DAILY [facility] Last Admin: 06/25/23 08:44 Dose: 1 mg Furosemide (Furosemide 40 Mg Tablet) 40 mg PO DAILY [facility]; Protocol Last Admin: 06/25/23 08:44 Dose: 40 mg Gabapentin (Gabapentin 300 Mg Capsule) 300 mg PO BEDTIME [facility] Last Admin: 06/24/23 22:04 Dose: 300 mg Glucose (Glucose Gel 15 Gm Gel..Gram.) 15 gm PO Q15M PRN; Protocol PRN Reason: per Hypoglycemia Standing Ord. Glucose (Glucose Gel 15 Gm Gel..Gram.) 15 gm PO Q15M PRN; Protocol PRN Reason: per Hypoglycemia Standing Ord. Hydroxyzine HCl (Hydroxyzine Hcl 50 Mg Tablet) 50 mg PO BID PRN PRN Reason: anxiety Hydroxyzine HCl (Hydroxyzine Hcl 25 Mg Tablet) 25 mg PO Q6H PRN PRN Reason: Anxiety Ibuprofen (Ibuprofen 600 Mg Tablet) 600 mg PO TIDWM PRN PRN Reason: Pain, Moderate(Pain Scale 4-6) Insulin Human Lispro (Insulin Lispro 100 Unit/Ml 3 Ml Vial) 0 unit SUBCUT QIDACHS [facility]; Protocol Last Admin: 06/25/23 08:42 Dose: 2 unit Lorazepam (Lorazepam 0.5 Mg Tablet) 0.5 mg PO BID PRN PRN Reason: anxiety Last Admin: 06/21/23 22:28 Dose: 0.5 mg Lorazepam (Lorazepam 1 Mg Tablet) 1 mg PO Q4H PRN PRN Reason: ciwa 8-12 Lorazepam (Lorazepam 1 Mg Tablet) 2 mg PO Q4H PRN PRN Reason: ciwa 13-17 Losartan Potassium (Losartan Potassium 25 Mg Tablet) 25 mg PO DAILY [facility]; Protocol Last Admin: 06/25/23 08:44 Dose: 25 mg Magnesium Hydroxide (Milk Of Magnesia 30 Ml Oral.Susp) 30 ml PO DAILY PRN PRN Reason: Constipation Melatonin (Melatonin 3 Mg Tablet) 6 mg PO BEDTIME PRN PRN Reason: Insomnia Last Admin: 06/23/23 22:34 Dose: 6 mg Metformin HCl (Metformin Hcl 500 Mg Tablet) 500 mg PO BID [facility] Last Admin: 06/25/23 08:44 Dose: 500 mg Multivitamins/Vitamin C (Multivitamin Tablet) 1 tab PO DAILY [facility] Last Admin: 06/25/23 08:44 Dose: 1 tab Omeprazole (Omeprazole 20 Mg Capsule.Dr) 20 mg PO DAILY@0630 [facility] Last Admin: 06/25/23 06:42 Dose: 20 mg Potassium Chloride (Potassium Chloride Er 10 Meq Tablet.Er) 10 meq PO DAILY [facility] Last Admin: 06/25/23 08:45 Dose: 10 meq Sertraline HCl (Sertraline Hcl 25 Mg Tablet) 25 mg PO DAILY [facility] Last Admin: 06/25/23 08:44 Dose: 25 mg Trazodone HCl (Trazodone Hcl 50 Mg Tablet) 50 mg PO BEDTIME MRX1 PRN PRN Reason: Insomnia Trazodone HCl (Trazodone Hcl 50 Mg Tablet) 50 mg PO BEDTIME MRX1 PRN PRN Reason: Insomnia Allergies Allergies Allergy/AdvReac Type Severity Reaction Status Date / Time No Known Allergies Allergy Verified 03/13/23 10:59 Assessment & Plan Assessment & Plan (1) MDD (major depressive disorder), recurrent episode, moderate: Status: Acute Code(s): F33.1 - Major depressive disorder, recurrent, moderate Assessment and Plan: Continue current plan of care and regime (2) Alcohol use disorder, severe, dependence: Status: Acute Code(s): F10.20 - Alcohol dependence, uncomplicated Assessment and Plan: [facility] Plan [age] year gentleman background systolic heart failure. He has background of alcoholism and nonischemic cardiomyopathy. He had angiogram before by his report and was told that he does not have any coronary disease. He has no anginal chest discomfort currently. Does not look significantly volume overloaded. I think he should stay on his home medications including carvedilol, Lasix daily 40 mg and losartan. Blood pressure is high then losartan can be titrated to a target blood pressure less than 130/80. 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 Thank you for allowing me to participate in the care of your patient. Please feel free to contact me if you have any questions. Plan 06/24 lower Prilosec keep rest the same 06/25 keep same treatment Informed Consent: understands Reason for continued inpatient stay Substantial Risk for: inability to function, rapid decompensation and med/psych decompensation Time Spent With Patient Time: Total time managing care of this patient today _20___ minutes.
--- NOTE | 2023-06-25 12:15 | PM.EVENT ---
Event Note Date of Service: 06/25/23 Event Note: Addiction consult placed for patient Seeking recovery supports Seen by Recovery business process coordinator, please see his note for additional details Time Spent With Patient Time: Total time managing care of this patient today ____ minutes.
[2023-06-25 13:31] LABS: Glucose, Whole Blood 163 mg/dL (60-115)
[2023-06-25] MEDS: LORazepam 0.5 MG TABLET PO ×2 (14:04→22:59)
[2023-06-25 16:25] VITALS: BP 117/67; PULSE 85; TEMP 36.4; O2SAT 93
[2023-06-25 17:19] LABS: Glucose, Whole Blood 177 mg/dL (60-115)
[2023-06-25 22:44] LABS: Glucose, Whole Blood 154 mg/dL (60-115)
[2023-06-25] MEDS: Atorvastatin Calcium 40 MG TABLET PO (22:55)
[2023-06-25] MEDS: Gabapentin 300 MG CAPSULE PO (22:55)
[2023-06-26] MEDS: Omeprazole 20 MG CAPSULE.DR PO (06:34)
[2023-06-26 08:48] VITALS: BP 124/75; PULSE 89; RESP 16; TEMP 36.1; O2SAT 90
[2023-06-26] MEDS: Potassium Chloride ER 10 MEQ TABLET.ER PO (08:52)
[2023-06-26] MEDS: Furosemide 40 MG TABLET PO (08:52)
[2023-06-26] MEDS: carvediloL 12.5 MG TABLET PO ×2 (08:53→21:55)
[2023-06-26] MEDS: Cyanocobalamin (Vitamin B-12) 500 MCG TABLET PO (08:53)
[2023-06-26] MEDS: Folic Acid 1 MG TABLET PO (08:53)
[2023-06-26] MEDS: Losartan Potassium 25 MG TABLET PO (08:53)
[2023-06-26] MEDS: metFORMIN HCl 500 MG TABLET PO ×2 (08:53→21:57)
[2023-06-26] MEDS: Sertraline HCL 25 MG TABLET PO (08:53)
[2023-06-26 09:00] LABS: Glucose, Whole Blood 192 mg/dL (60-115)
[2023-06-26] MEDS: Insulin Lispro 100 UNIT/ML 3 ML VIAL SUBCUT ×4 (09:18→22:19)
[2023-06-26] MEDS: Multivitamin TABLET 1 TAB PO (11:03)
[2023-06-26 12:52] LABS: Glucose, Whole Blood 197 mg/dL (60-115)
--- NOTE | 2023-06-26 13:56 | PC.NURSE ---
pt signed a 3day notice on 06/26/23. up on 06/29/23. aleida franz md aware
--- NOTE | 2023-06-26 15:20 | HO.PSYCHPN ---
Subjective Subjective Date of Service: 06/26/23 Reason For Visit: Recurrent major depression, alcohol use disorder Subjective Notes: Conditional Voluntary and 3 Day (retracted today and refiled) Healthcare Proxy: No Guardianship: No Medical Problems Affecting Mental Status: No Interim History: Pt reports a difficult weekend. CPAP was not available on 06/24. Lorazepam was not given 06/25. Reports improvement in chest discomfort Discussed Sertraline titration. Pt feels prepared to increase Discussed anxiety mgt. Will trial low dose Gabapentin during the day. Pt reports he needs to talk with his [employer] Machine Operator on 06/27. Medication Compliance: Yes Side effects from medications: No Attending Groups: Yes Review of Systems Acute medical concerns: No Medical Review of Systems: unchanged Mental Status Exam Mental Status Exam Patient Appearance: Appropriate Patient Orientation: Person, Place, Time and Situation Level of Consciousness: Alert Patient Behavior: Appropriate, Talkative and Good Eye Contact Mood Description: Depressed and Anxious Affect Description: Flat Patient Cognition Impaired: No Ability to Follow Directions: Good Speech Pattern: Spontaneous Speech Memory Description: Episodic Impaired Hallucinations: None Delusions: Not Present Thought Process: Rumination Thought Content: positive for Perseveration Depressive Symptoms: Increased Anxiety, Hopelessness, Increased Fatigue and Loss of Energy Judgement: Fair Diagnostics Vital Signs (24Hr): Vital Signs - 24 hr 06/25/23 16:25 06/26/23 08:48 Temperature 97.6 F 97.0 F Pulse Rate 85 89 Respiratory Rate 16 Blood Pressure 117/67 124/75 Pulse Oximetry 93 90 L Oxygen Delivery Method Room Air Room Air BMI result Body Mass Index 59.9 Labs 06/20/23 06:28 06/20/23 06:29 Labs: Laboratory Results - last 48 hr 06/24/23 06/24/23 06/25/23 17:32 20:51 08:12 POC Glucose 185 H 183 H 178 H 06/25/23 06/25/23 06/25/23 13:26 17:14 22:40 POC Glucose 163 H 177 H 154 H 06/26/23 06/26/23 08:52 12:47 POC Glucose 192 H 197 H Imaging Radiology Impressions: ITS Impressions Chest X-Ray 06/21/23 07:57 IMPRESSION: No acute cardiopulmonary process. Medications Medications Current Medications Acetaminophen (Acetaminophen 325 Mg Tablet) 650 mg PO Q6H PRN PRN Reason: Headache/Pain Mild Scale (1-3) Al Hydroxide/Mg Hydroxide (Magnesium Hydrox/Alum Hydrox 30 Ml Oral.Susp) 30 ml PO Q6H PRN PRN Reason: Heartburn/Nausea Last Admin: 06/24/23 08:58 Dose: 30 ml Albuterol Sulfate (Albuterol Sulfate 90 Mcg 8 Gm Inhaler) 1 puff INHALE RQ4H PRN PRN Reason: Shortness Of Breath Atorvastatin Calcium (Atorvastatin Calcium 40 Mg Tablet) 40 mg PO BEDTIME [facility] Last Admin: 06/25/23 22:55 Dose: 40 mg Carvedilol (Carvedilol 12.5 Mg Tablet) 12.5 mg PO BID [facility]; Protocol Last Admin: 06/26/23 08:53 Dose: 12.5 mg Cyanocobalamin (Cyanocobalamin (Vitamin B-12) 500 Mcg Tablet) 500 mcg PO DAILY [facility] Last Admin: 06/26/23 08:53 Dose: 500 mcg Dextrose (Dextrose 50 % 25 Gm/50 Ml Syringe) 25 gm IVPUSH Q15M PRN; Protocol PRN Reason: per Hypoglycemia Standing Ord. Dextrose (Dextrose 50 % 25 Gm/50 Ml Syringe) 25 gm IVPUSH Q15M PRN; Protocol PRN Reason: per Hypoglycemia Standing Ord. Folic Acid (Folic Acid 1 Mg Tablet) 1 mg PO DAILY [facility] Last Admin: 06/26/23 08:53 Dose: 1 mg Furosemide (Furosemide 40 Mg Tablet) 40 mg PO DAILY [facility]; Protocol Last Admin: 06/26/23 08:52 Dose: 40 mg Gabapentin (Gabapentin 300 Mg Capsule) 300 mg PO BEDTIME [facility] Last Admin: 06/25/23 22:55 Dose: 300 mg Gabapentin (Gabapentin 100 Mg Capsule) 100 mg PO 0900,1500 [facility] Glucose (Glucose Gel 15 Gm Gel..Gram.) 15 gm PO Q15M PRN; Protocol PRN Reason: per Hypoglycemia Standing Ord. Glucose (Glucose Gel 15 Gm Gel..Gram.) 15 gm PO Q15M PRN; Protocol PRN Reason: per Hypoglycemia Standing Ord. Hydroxyzine HCl (Hydroxyzine Hcl 50 Mg Tablet) 50 mg PO BID PRN PRN Reason: anxiety Hydroxyzine HCl (Hydroxyzine Hcl 25 Mg Tablet) 25 mg PO Q6H PRN PRN Reason: Anxiety Ibuprofen (Ibuprofen 600 Mg Tablet) 600 mg PO TIDWM PRN PRN Reason: Pain, Moderate(Pain Scale 4-6) Insulin Human Lispro (Insulin Lispro 100 Unit/Ml 3 Ml Vial) 0 unit SUBCUT QIDACHS [facility]; Protocol Last Admin: 06/26/23 13:39 Dose: 2 unit Lorazepam (Lorazepam 0.5 Mg Tablet) 0.5 mg PO Q8H PRN PRN Reason: withdrawal, anxiety Losartan Potassium (Losartan Potassium 25 Mg Tablet) 25 mg PO DAILY [facility]; Protocol Last Admin: 06/26/23 08:53 Dose: 25 mg Magnesium Hydroxide (Milk Of Magnesia 30 Ml Oral.Susp) 30 ml PO DAILY PRN PRN Reason: Constipation Melatonin (Melatonin 3 Mg Tablet) 6 mg PO BEDTIME PRN PRN Reason: Insomnia Last Admin: 06/23/23 22:34 Dose: 6 mg Metformin HCl (Metformin Hcl 500 Mg Tablet) 500 mg PO BID [facility] Last Admin: 06/26/23 08:53 Dose: 500 mg Multivitamins/Vitamin C (Multivitamin Tablet) 1 tab PO DAILY [facility] Last Admin: 06/26/23 11:03 Dose: 1 tab Omeprazole (Omeprazole 20 Mg Capsule.Dr) 20 mg PO DAILY@0630 [facility] Last Admin: 06/26/23 06:34 Dose: 20 mg Potassium Chloride (Potassium Chloride Er 10 Meq Tablet.Er) 10 meq PO DAILY [facility] Last Admin: 06/26/23 08:52 Dose: 10 meq Sertraline HCl (Sertraline Hcl 50 Mg Tablet) 50 mg PO DAILY [facility] Trazodone HCl (Trazodone Hcl 50 Mg Tablet) 50 mg PO BEDTIME MRX1 PRN PRN Reason: Insomnia Trazodone HCl (Trazodone Hcl 50 Mg Tablet) 50 mg PO BEDTIME MRX1 PRN PRN Reason: Insomnia Allergies Allergies Allergy/AdvReac Type Severity Reaction Status Date / Time No Known Allergies Allergy Verified 03/13/23 10:59 Assessment & Plan Assessment & Plan (1) MDD (major depressive disorder), recurrent episode, moderate: Status: Acute Code(s): F33.1 - Major depressive disorder, recurrent, moderate Assessment and Plan: Continue current plan of care and regime (2) Alcohol use disorder, severe, dependence: Status: Acute Code(s): F10.20 - Alcohol dependence, uncomplicated Assessment and Plan: [facility] Plan [age] year gentleman background systolic heart failure. He has background of alcoholism and nonischemic cardiomyopathy. He had angiogram before by his report and was told that he does not have any coronary disease. He has no anginal chest discomfort currently. Does not look significantly volume overloaded. I think he should stay on his home medications including carvedilol, Lasix daily 40 mg and losartan. Blood pressure is high then losartan can be titrated to a target blood pressure less than 130/80. 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 Thank you for allowing me to participate in the care of your patient. Please feel free to contact me if you have any questions. Plan 06/24 lower Prilosec keep rest the same 06/25 keep same treatment 06/26/23 Team working on [place] 6 week program transfer Increase Sertraline to 50 mg daily Gabapentin 100 mg 9am 3pm to trial to address anxiety. Patient educated on: medication risk/benefits and therapeutic strategies Informed Consent: understands Reason for continued inpatient stay Substantial Risk for: med/psych decompensation Time Spent With Patient Time: Total time managing care of this patient today ____ minutes.
[2023-06-26 16:53] LABS: Glucose, Whole Blood 198 mg/dL (60-115)
[2023-06-26 21:45] VITALS: BP 110/61; PULSE 89; TEMP 36.3; O2SAT 94
[2023-06-26] MEDS: Atorvastatin Calcium 40 MG TABLET PO (21:54)
[2023-06-26] MEDS: LORazepam 0.5 MG TABLET PO (21:55)
[2023-06-26] MEDS: Gabapentin 300 MG CAPSULE PO (21:58)
[2023-06-26] MEDS: Melatonin 3 MG TABLET 6 MG PO (21:58)
[2023-06-26 22:18] LABS: Glucose, Whole Blood 201 mg/dL (60-115)
[2023-06-27 08:19] LABS: Glucose, Whole Blood 216 mg/dL (60-115)
[2023-06-27] MEDS: Cyanocobalamin (Vitamin B-12) 500 MCG TABLET PO (09:01)
[2023-06-27] MEDS: metFORMIN HCl 500 MG TABLET PO ×2 (09:01→20:22)
[2023-06-27] MEDS: Multivitamin TABLET 1 TAB PO (09:01)
[2023-06-27] MEDS: carvediloL 12.5 MG TABLET PO ×2 (09:01→20:22)
[2023-06-27] MEDS: Furosemide 40 MG TABLET PO (09:01)
[2023-06-27] MEDS: Potassium Chloride ER 10 MEQ TABLET.ER PO (09:01)
[2023-06-27] MEDS: Gabapentin 100 MG CAPSULE PO ×2 (09:01→15:00)
[2023-06-27] MEDS: Folic Acid 1 MG TABLET PO (09:01)
[2023-06-27] MEDS: Omeprazole 20 MG CAPSULE.DR PO (09:02)
[2023-06-27] MEDS: Sertraline HCL 50 MG TABLET PO (09:02)
[2023-06-27] MEDS: Insulin Lispro 100 UNIT/ML 3 ML VIAL SUBCUT ×4 (09:02→20:23)
[2023-06-27] MEDS: Losartan Potassium 25 MG TABLET PO (09:02)
[2023-06-27 09:05] VITALS: BP 109/64; PULSE 88; RESP 18; O2SAT 92
[2023-06-27 09:48] LABS: Estimated Glomerular Filt Rate > 60
--- NOTE | 2023-06-27 10:05 | P.PNPSI_ITS ---
Subjective Subjective Date of Service: 06/27/23 Reason For Visit: Recurrent major depression, alcohol use disorder Subjective Notes: Conditional Voluntary and 3 Day Healthcare Proxy: No Guardianship: No Medical Problems Affecting Mental Status: No Interim History: Re-submitted TDN. Requested CPAP consult-mask not fitting properly. Ordered CIWA discontinued. Lorazepam discontinued. Pt attempting to call his heel caser from [employer] Team working [facility] a potential [facility]. Denies CP today. Tolerating medication changes thus far Medication Compliance: Yes Side effects from medications: No Attending Groups: Yes Review of Systems Acute medical concerns: No Medical Review of Systems: unchanged Mental Status Exam Mental Status Exam Patient Appearance: Appropriate Patient Orientation: Person, Place, Time and Situation Level of Consciousness: Alert Patient Behavior: Appropriate, Talkative and Good Eye Contact Mood Description: Depressed and Anxious Affect Description: Flat Patient Cognition Impaired: No Ability to Follow Directions: Good Speech Pattern: Spontaneous Speech Memory Description: Episodic Impaired Hallucinations: None Delusions: Not Present Thought Process: Rumination Thought Content: positive for Perseveration Depressive Symptoms: Increased Anxiety, Hopelessness, Increased Fatigue and Loss of Energy Judgement: Fair Diagnostics Vital Signs (24Hr): Vital Signs - 24 hr 06/26/23 21:45 06/27/23 09:05 Temperature 97.4 F Pulse Rate 89 88 Respiratory Rate 18 Blood Pressure 110/61 109/64 Pulse Oximetry 94 92 Oxygen Delivery Method Room Air Room Air BMI result Body Mass Index 59.9 Labs 06/20/23 06:28 06/27/23 08:04 Labs: Laboratory Results - last 48 hr 06/25/23 06/25/23 06/25/23 13:26 17:14 22:40 Creatinine Estim Creat Clear Calc Estimated GFR POC Glucose 163 H 177 H 154 H 06/26/23 06/26/23 06/26/23 08:52 12:47 16:49 Creatinine Estim Creat Clear Calc Estimated GFR POC Glucose 192 H 197 H 198 H 06/26/23 06/27/23 06/27/23 22:13 08:04 08:15 Creatinine 0.69 Estim Creat Clear Calc 223.0 Estimated GFR > 60 POC Glucose 201 H 216 H Imaging Radiology Impressions: ITS Impressions Chest X-Ray 06/21/23 07:57 IMPRESSION: No acute cardiopulmonary process. Medications Medications Current Medications Acetaminophen (Acetaminophen 325 Mg Tablet) 650 mg PO Q6H PRN PRN Reason: Headache/Pain Mild Scale (1-3) Al Hydroxide/Mg Hydroxide (Magnesium Hydrox/Alum Hydrox 30 Ml Oral.Susp) 30 ml PO Q6H PRN PRN Reason: Heartburn/Nausea Last Admin: 06/24/23 08:58 Dose: 30 ml Albuterol Sulfate (Albuterol Sulfate 90 Mcg 8 Gm Inhaler) 1 puff INHALE RQ4H PRN PRN Reason: Shortness Of Breath Atorvastatin Calcium (Atorvastatin Calcium 40 Mg Tablet) 40 mg PO BEDTIME [facility] Last Admin: 06/26/23 21:54 Dose: 40 mg Carvedilol (Carvedilol 12.5 Mg Tablet) 12.5 mg PO BID [facility]; Protocol Last Admin: 06/27/23 09:01 Dose: 12.5 mg Cyanocobalamin (Cyanocobalamin (Vitamin B-12) 500 Mcg Tablet) 500 mcg PO DAILY [facility] Last Admin: 06/27/23 09:01 Dose: 500 mcg Dextrose (Dextrose 50 % 25 Gm/50 Ml Syringe) 25 gm IVPUSH Q15M PRN; Protocol PRN Reason: per Hypoglycemia Standing Ord. Dextrose (Dextrose 50 % 25 Gm/50 Ml Syringe) 25 gm IVPUSH Q15M PRN; Protocol PRN Reason: per Hypoglycemia Standing Ord. Folic Acid (Folic Acid 1 Mg Tablet) 1 mg PO DAILY [facility] Last Admin: 06/27/23 09:01 Dose: 1 mg Furosemide (Furosemide 40 Mg Tablet) 40 mg PO DAILY [facility]; Protocol Last Admin: 06/27/23 09:01 Dose: 40 mg Gabapentin (Gabapentin 300 Mg Capsule) 300 mg PO BEDTIME [facility] Last Admin: 06/26/23 21:58 Dose: 300 mg Gabapentin (Gabapentin 100 Mg Capsule) 100 mg PO 0900,1500 [facility] Last Admin: 06/27/23 09:01 Dose: 100 mg Glucose (Glucose Gel 15 Gm Gel..Gram.) 15 gm PO Q15M PRN; Protocol PRN Reason: per Hypoglycemia Standing Ord. Glucose (Glucose Gel 15 Gm Gel..Gram.) 15 gm PO Q15M PRN; Protocol PRN Reason: per Hypoglycemia Standing Ord. Hydroxyzine HCl (Hydroxyzine Hcl 50 Mg Tablet) 50 mg PO BID PRN PRN Reason: anxiety Hydroxyzine HCl (Hydroxyzine Hcl 25 Mg Tablet) 25 mg PO Q6H PRN PRN Reason: Anxiety Ibuprofen (Ibuprofen 600 Mg Tablet) 600 mg PO TIDWM PRN PRN Reason: Pain, Moderate(Pain Scale 4-6) Insulin Human Lispro (Insulin Lispro 100 Unit/Ml 3 Ml Vial) 0 unit SUBCUT QIDACHS [facility]; Protocol Last Admin: 06/27/23 09:02 Dose: 4 unit Lorazepam (Lorazepam 0.5 Mg Tablet) 0.5 mg PO Q8H PRN PRN Reason: withdrawal, anxiety Last Admin: 06/26/23 21:55 Dose: 0.5 mg Losartan Potassium (Losartan Potassium 25 Mg Tablet) 25 mg PO DAILY [facility]; Protocol Last Admin: 06/27/23 09:02 Dose: 25 mg Magnesium Hydroxide (Milk Of Magnesia 30 Ml Oral.Susp) 30 ml PO DAILY PRN PRN Reason: Constipation Melatonin (Melatonin 3 Mg Tablet) 6 mg PO BEDTIME PRN PRN Reason: Insomnia Last Admin: 06/26/23 21:58 Dose: 6 mg Metformin HCl (Metformin Hcl 500 Mg Tablet) 500 mg PO BID [facility] Last Admin: 06/27/23 09:01 Dose: 500 mg Multivitamins/Vitamin C (Multivitamin Tablet) 1 tab PO DAILY [facility] Last Admin: 06/27/23 09:01 Dose: 1 tab Omeprazole (Omeprazole 20 Mg Capsule.Dr) 20 mg PO DAILY@0630 [facility] Last Admin: 06/27/23 09:02 Dose: 20 mg Potassium Chloride (Potassium Chloride Er 10 Meq Tablet.Er) 10 meq PO DAILY [facility] Last Admin: 06/27/23 09:01 Dose: 10 meq Sertraline HCl (Sertraline Hcl 50 Mg Tablet) 50 mg PO DAILY [facility] Last Admin: 06/27/23 09:02 Dose: 50 mg Trazodone HCl (Trazodone Hcl 50 Mg Tablet) 50 mg PO BEDTIME MRX1 PRN PRN Reason: Insomnia Trazodone HCl (Trazodone Hcl 50 Mg Tablet) 50 mg PO BEDTIME MRX1 PRN PRN Reason: Insomnia Allergies Allergies Allergy/AdvReac Type Severity Reaction Status Date / Time No Known Allergies Allergy Verified 03/13/23 10:59 Assessment & Plan Assessment & Plan (1) MDD (major depressive disorder), recurrent episode, moderate: Status: Acute Code(s): F33.1 - Major depressive disorder, recurrent, moderate Assessment and Plan: Continue current plan of care and regime Discharge planning. (2) Alcohol use disorder, severe, dependence: Status: Acute Code(s): F10.20 - Alcohol dependence, uncomplicated Assessment and Plan: Referral to [place] 6 week in pt program. 06/27/23: CIWA and Lorazepam discontinued Plan [age] year gentleman background systolic heart failure. He has background of alcoholism and nonischemic cardiomyopathy. He had angiogram before by his report and was told that he does not have any coronary disease. He has no anginal chest discomfort currently. Does not look significantly volume overloaded. I think he should stay on his h ome medications including carvedilol, Lasix daily 40 mg and losartan. Blood pressure is high then losartan can be titrated to a target blood pressure less than 130/80. He has a [employer] programmer and has been following up with him and should continue to follow with his primary [employer] programmer. Thank you for allowing me to participate in the care of your patient. Please feel free to contact me if you have any questions. Plan 06/24 lower Prilosec keep rest the same 06/25 keep same treatment 06/26/23 Team working on [facility] 6 week program transfer Increase Sertraline to 50 mg daily Gabapentin 100 mg 9am 3pm to trial to address anxiety. Patient educated on: therapeutic strategies Informed Consent: understands Reason for continued inpatient stay Substantial Risk for: rapid decompensation Time Spent With Patient Time: Total time managing care of this patient today ____ minutes.
[2023-06-27 12:40] LABS: Glucose, Whole Blood 236 mg/dL (60-115)
--- NOTE | 2023-06-27 15:08 | PM.CNPUL ---
History of Present Illness History of Present Illness Consult date: 06/27/23 Chief complaint: Recurrent major depression, alcohol use disorder Narrative: Pulmonary Consult . I was asked to see this gentleman for pulmonar,y evaluation because of obstructive sleep apnea and nocturnal hypoxemia. This gentleman is known to me from a previous consultation on 03/14/2023, when he was admitted to the regular floor. This 52 years old gentleman is the a retired , and for his outpatient medical care he is followed at [facility]. He is a case of morbid obesity, and obstructive sleep apnea, He has been using CPAP at night for the last 20+ years. he claims that he does use the CPAP regularly at home. He received his new CPAP machine ab out 3 years ago, and according to him the pressure used is 6 or 8 cm. He states that when at home he does use his CPAP regularly and sleeps good, with his had side of the bed propped up. His oxygen level has never been checked at night while he is using CPAP. The problem is that he does not like to use the CPAP from the hospital, and thus when he is hospitalized we cannot check his O2 sat while using the CPAP at night. Last time when I saw him in March I suggested that he should be followed as an outpatient, and all overnight oximetry recording should be ordered as outpatient. This has not been done because he fails to go for follow-up. He denies any history of chronic pulmonary disease , and denies smoking cigarettes. he does have history of alcohol abuse . Is previous CTA of the chest and chest x-rays have shown no cardiopulmonary disease. Review of Systems Review of Systems: Yes all other systems are reviewed and are negative Constitutional: Constitutional: Reports no additional constitutional complaints Eyes: Eyes: Reports no additional eye complaints ENT: Reports system reviewed and no additional complaints, except as documented Cardiovascular: Cardiovascular: Denies chest pain, Denies irregular heart rhythm and Denies leg edema Respiratory: Respiratory: Denies cough, Denies stridor and Denies wheezing Gastrointestinal: Gastrointestinal: Reports no additional gastrointestinal complaints Genitourinary: Genitourinary: Reports no additional male genitourinary complaints Musculoskeletal: Musculoskeletal: Reports no additional musculoskeletal complaints Integumentary/Breasts: Skin/Breast: Reports system reviewed and no additional complaints, except as docu Neurologic: Reports system reviewed and no additional complaints, except as documented Psychiatric: Psychiatric: Reports depression and Reports mood swings Allergic/Immunologic: Allergic/Immunologic: Denies wheezing PMFSH Past Medical History Medical History Acute gastritis with bleeding Alcohol use disorder, severe, dependence Anxiety Arthritis Depression Diabetes mellitus, type 2 Herniated disc Hypertension Morbid obesity Obesity TERRIE on CPAP PTSD (post-traumatic stress disorder) Sleep apnea Systolic heart failure Family History Family History Mother Diabetes Social History Social History Household Members: None Housing: Apartment Do you presently have visiting nurse or other home services: No Alcohol intake: current Alcohol intake frequency: a few times a month Alcohol type: hard liquor Patient Tobacco Use Status: Never used Tobacco Smoked in Last 30 Days: No e-Cigarette/Vaping Use: Never Used Second Hand Smoke Exposure: No Use of substances other than those prescribed or required for medical reasons: No Substance Use Type: Other Currently Displaying Signs/Symptoms of Drug Intoxication Withdrawal: No Any prior treatment program specific to substance use: No Have you been hit, kicked, punched, or otherwise hurt by someone within the past year? If so, by whom?: No Do you feel safe in your current relationship?: No Current Relationship Is there a partner from a previous relationship who is making you feel unsafe now?: No Are you made to feel afraid or neglected: No Advance Directives: No Advance Directives Information Provided: Yes Healthcare Proxy: No Guardian: No Do you have thoughts of harming others: None Do you have a plan to hurt others: No Plan Recently lost weight without trying: No Nutrition Risks: No Nutritional Risk Poor oral hygiene: No service: Yes ([employer] [id number]) Current occupational status: employed Sexual orientation: Straight/Heterosexual Meds Allergies Allergy/AdvReac Type Severity Reaction Status Date / Time No Known Allergies Allergy Verified 03/13/23 10:59 Active Medications: Current Medications Acetaminophen (Acetaminophen 325 Mg Tablet) 650 mg PO Q6H PRN PRN Reason: Headache/Pain Mild Scale (1-3) Al Hydroxide/Mg Hydroxide (Magnesium Hydrox/Alum Hydrox 30 Ml Oral.Susp) 30 ml PO Q6H PRN PRN Reason: Heartburn/Nausea Last Admin: 06/24/23 08:58 Dose: 30 ml Albuterol Sulfate (Albuterol Sulfate 90 Mcg 8 Gm Inhaler) 1 puff INHALE RQ4H PRN PRN Reason: Shortness Of Breath Atorvastatin Calcium (Atorvastatin Calcium 40 Mg Tablet) 40 mg PO BEDTIME [facility] Last Admin: 06/26/23 21:54 Dose: 40 mg Carvedilol (Carvedilol 12.5 Mg Tablet) 12.5 mg PO BID [facility]; Protocol Last Admin: 06/27/23 09:01 Dose: 12.5 mg Cyanocobalamin (Cyanocobalamin (Vitamin B-12) 500 Mcg Tablet) 500 mcg PO DAILY [facility] Last Admin: 06/27/23 09:01 Dose: 500 mcg Dextrose (Dextrose 50 % 25 Gm/50 Ml Syringe) 25 gm IVPUSH Q15M PRN; Protocol PRN Reason: per Hypoglycemia Standing Ord. Dextrose (Dextrose 50 % 25 Gm/50 Ml Syringe) 25 gm IVPUSH Q15M PRN; Protocol PRN Reason: per Hypoglycemia Standing Ord. Folic Acid (Folic Acid 1 Mg Tablet) 1 mg PO DAILY [facility] Last Admin: 06/27/23 09:01 Dose: 1 mg Furosemide (Furosemide 40 Mg Tablet) 40 mg PO DAILY [facility]; Protocol Last Admin: 06/27/23 09:01 Dose: 40 mg Gabapentin (Gabapentin 300 Mg Capsule) 300 mg PO BEDTIME [facility] Last Admin: 06/26/23 21:58 Dose: 300 mg Gabapentin (Gabapentin 100 Mg Capsule) 100 mg PO 0900,1500 [facility] Last Admin: 06/27/23 15:00 Dose: 100 mg Glucose (Glucose Gel 15 Gm Gel..Gram.) 15 gm PO Q15M PRN; Protocol PRN Reason: per Hypoglycemia Standing Ord. Glucose (Glucose Gel 15 Gm Gel..Gram.) 15 gm PO Q15M PRN; Protocol PRN Reason: per Hypoglycemia Standing Ord. Hydroxyzine HCl (Hydroxyzine Hcl 50 Mg Tablet) 50 mg PO BID PRN PRN Reason: anxiety Hydroxyzine HCl (Hydroxyzine Hcl 25 Mg Tablet) 25 mg PO Q6H PRN PRN Reason: Anxiety Ibuprofen (Ibuprofen 600 Mg Tablet) 600 mg PO TIDWM PRN PRN Reason: Pain, Moderate(Pain Scale 4-6) Insulin Human Lispro (Insulin Lispro 100 Unit/Ml 3 Ml Vial) 0 unit SUBCUT QIDACHS [facility]; Protocol Last Admin: 06/27/23 12:47 Dose: 4 unit Lorazepam (Lorazepam 0.5 Mg Tablet) 0.5 mg PO Q8H PRN PRN Reason: withdrawal, anxiety Last Admin: 06/26/23 21:55 Dose: 0.5 mg Losartan Potassium (Losartan Potassium 25 Mg Tablet) 25 mg PO DAILY [facility]; Protocol Last Admin: 06/27/23 09:02 Dose: 25 mg Magnesium Hydroxide (Milk Of Magnesia 30 Ml Oral.Susp) 30 ml PO DAILY PRN PRN Reason: Constipation Melatonin (Melatonin 3 Mg Tablet) 6 mg PO BEDTIME PRN PRN Reason: Insomnia Last Admin: 06/26/23 21:58 Dose: 6 mg Metformin HCl (Metformin Hcl 500 Mg Tablet) 500 mg PO BID [facility] Last Admin: 06/27/23 09:01 Dose: 500 mg Multivitamins/Vitamin C (Multivitamin Tablet) 1 tab PO DAILY [facility] Last Admin: 06/27/23 09:01 Dose: 1 tab Omeprazole (Omeprazole 20 Mg Capsule.Dr) 20 mg PO DAILY@0630 [facility] Last Admin: 06/27/23 09:02 Dose: 20 mg Potassium Chloride (Potassium Chloride Er 10 Meq Tablet.Er) 10 meq PO DAILY [facility] Last Admin: 06/27/23 09:01 Dose: 10 meq Sertraline HCl (Sertraline Hcl 50 Mg Tablet) 50 mg PO DAILY [facility] Last Admin: 06/27/23 09:02 Dose: 50 mg Trazodone HCl (Trazodone Hcl 50 Mg Tablet) 50 mg PO BEDTIME MRX1 PRN PRN Reason: Insomnia Trazodone HCl (Trazodone Hcl 50 Mg Tablet) 50 mg PO BEDTIME MRX1 PRN PRN Reason: Insomnia Home Medications Medication Instructions Recorded Confirmed Last Taken Type potassium chloride 10 mEq 10 meq PO DAILY 05/30/23 06/21/23 Unknown History capsule,extended release dapagliflozin propanediol 10 mg 10 mg PO DAILY 06/21/23 06/21/23 Unknown History tablet (Farxiga) furosemide 40 mg tablet 40 mg PO DAILY PRN Edema 06/21/23 06/21/23 Unknown History Physical Exam Vital Signs: Vital Signs: Last Vital Signs Temp 97.4 F 06/26/23 21:45 Pulse 88 06/27/23 09:05 Resp 18 06/27/23 09:05 BP 109/64 06/27/23 09:05 Pulse Ox 92 06/27/23 09:05 O2 Del Method Room Air 06/27/23 09:05 O2 Flow Rate 2 06/20/23 06:20 Oxygen Flow Rate 4 06/20/23 05:21 BMI result Body Mass Index 59.9 this gentleman is super morbidly obese BMI= 59.9 Const: General: comfortable, no acute distress, alert and awake Orientation/consciousness: patient oriented x3 HEENT: Head: Yes normal to inspection General nose exam: No nasal polyps present and No nasal discharge present Face and sinus: Yes sinuses nontender Mouth: oropharynx abnormals ( OROPHARYNX IS NOT VISIBLE CLEARLY, MALLAMPATI CLASS 4) Throat: Yes posterior oropharynx normal Eyes: General: appearance normal, both eyes and all related structures Neck: Other: VERY OBESE AND SHORT NECK Neck: Yes normal visual inspection, Yes no lymphadenopathy, Yes trachea midline and Yes no JVD Thyroid: Thyroid normal Chest: Chest palpation & inspection: normal inspection of the chest, normal palpation of entire chest wall and no tenderness Resp: Other: PERCUSSION NOTE IS NOT PERCEPTIBLE BECAUSE OF THE .THICK WALL BREATH SOUNDS ARE DIMINISHED OVER THE BASIL.AR AREAS NO WHEEZES CREPITAT.IONS OR RHONCHI ARE HEARD Cardio: Palpation: PMI not normal ( NOT PALPABLE) Rate: regular rate Rhythm: regular rhythm Heart sounds: no gallops and no murmurs Peripheral pulses: Peripheral pulses 2+ throughout GI: Palpation (GI): Soft to palpation, Tenderness to palpation present (GI), No hepatosplenomegaly present, Palpable mass present and Other GI palpation findings present ( ABDOMEN IS MARKEDLY OBESE AND PROTUBERANT) Auscultation: normal bowel sounds Back/Spine/Pelvis: Thoracic/Lumbar Spine: thoracic and lumbar spine normal to inspection Skin: General skin exam: no rashes or lesions noted Neuro: General: patient oriented x3 and no focal motor deficits Cranial nerves: Yes CN's II-XII intact bilaterally Extrem: General: Yes normal to inspection, Yes no clubbing, cyanosis or edema and Yes no calf tenderness Psych: Appearance: grossly normal Speech and movement: Normal speech and movement present Results Laboratory Findings 06/20/23 06:28 06/27/23 08:04 Abnormal lab findings: Abnormal Labs 06/20/23 06/20/23 06/20/23 06:28 06:29 07:18 RBC 4.59 L Hgb 13.8 L [place] % (Auto) 12.3 H BUN 7 L POC Glucose Random Glucose 193 H Calcium 8.1 L D B-Natriuretic Peptide Vitamin B12 Ur Barbiturates Screen POSITIVE H 06/21/23 06/22/23 06/22/23 14:05 08:44 12:10 RBC Hgb [place] % (Auto) BUN POC Glucose 211 H Random Glucose Calcium B-Natriuretic Peptide 224 H Vitamin B12 181 L Ur Barbiturates Screen 06/22/23 06/23/23 06/23/23 21:57 08:10 12:21 RBC Hgb [place] % (Auto) BUN POC Glucose 205 H 146 H 188 H Random Glucose Calcium B-Natriuretic Peptide Vitamin B12 Ur Barbiturates Screen 06/23/23 06/24/23 06/24/23 20:05 08:26 12:26 RBC Hgb [place] % (Auto) BUN POC Glucose 181 H 170 H 211 H Random Glucose Calcium B-Natriuretic Peptide Vitamin B12 Ur Barbiturates Screen 06/24/23 06/24/23 06/25/23 17:32 20:51 08:12 RBC Hgb [place] % (Auto) BUN POC Glucose 185 H 183 H 178 H Random Glucose Calcium B-Natriuretic Peptide Vitamin B12 Ur Barbiturates Screen 06/25/23 06/25/23 06/25/23 13:26 17:14 22:40 RBC Hgb [place] % (Auto) BUN POC Glucose 163 H 177 H 154 H Random Glucose Calcium B-Natriuretic Peptide Vitamin B12 Ur Barbiturates Screen 06/26/23 06/26/23 06/26/23 08:52 12:47 16:49 RBC Hgb [place] % (Auto) BUN POC Glucose 192 H 197 H 198 H Random Glucose Calcium B-Natriuretic Peptide Vitamin B12 Ur Barbiturates Screen 06/26/23 06/27/23 06/27/23 22:13 08:15 12:35 RBC Hgb [place] % (Auto) BUN POC Glucose 201 H 216 H 236 H Random Glucose Calcium B-Natriuretic Peptide Vitamin B12 Ur Barbiturates Screen Assessment and Plan (1) Morbid obesity: Status: Acute (2) TERRIE on CPAP: Status: Acute (3) Hypoxia: Status: Acute Plan THIS 52 YEARS OLD GENTLEMAN, IS A CASE OF SUPER MORBID OBESITY, AND HAS HISTORY OF OBSTRUCTIVE SLEEP APNEA FOR THE LAST 20+ YEARS. HE HAS BEEN USING CPAP FOR THE LAST, 20 YEARS . ACCORDING TO HIM HE GOT NEW CPAP MACHINE ABOUT 3 YEARS AGO AND WORKS OKAY. AT HOME HE CLAIMS THAT HE USES CPAP EVERY NIGHT FOR 6-7 HOURS PER NIGHT AND SLEEPS WELL. MY FEELING IS THAT WHILE HE IS USING CPAP AT NIGHT HIS OXYGENATION IS PROBABLY E IN NORMAL RANGE. BUT IT SHOULD BE CHECKED WITH OVERNIGHT OXIMETRY RECORDING WHILE HE IS ON CPAP. THE PROBLEM HERE IN THE HOSPITAL IS THAT HE WOULD NOT USE THE HOSPITAL CPAP, AND HE IS NOT ABLE TO HAVE ANYONE BRING HIS CPAP DEVICE FROM HIS HOME . HIS O2 SAT RECOR DINGS DURING THE DAYTIME ON ROOM AIR OR 92-94%. OUTPATIENT THIS GENTLEMAN FOLLOWS WITH [facility], AND HIS CPAP IS ALSO BEING MANAGED BY THE [facility]. MY RECOMMENDATION WOULD BE THAT AFTER DISCHARGE FROM HERE HE SHOULD MAKE APPOINTMENT FOR FOLLOW-UP OUTPATIENT, AND [facility] SHOULD MAKE ARRANGEMENT FOR DOING OVERNIGHT OXIMETRY RECORDING WHILE HE IS USING CPAP. THANK YOU VERY MUCH FOR ASKING ME TO SEE THIS GENTLEMAN. Time Spent With Patient Time: Total time managing care of this patient today ____ minutes. Procedures Date of Service Date of Service: 06/27/23
[2023-06-27 16:34] LABS: Glucose, Whole Blood 173 mg/dL (60-115)
[2023-06-27 17:36] VITALS: BP 125/58; PULSE 88; RESP 16; TEMP 35.6; O2SAT 94
[2023-06-27 20:22] LABS: Glucose, Whole Blood 169 mg/dL (60-115)
[2023-06-27] MEDS: Atorvastatin Calcium 40 MG TABLET PO (20:22)
[2023-06-27] MEDS: Gabapentin 300 MG CAPSULE PO (20:23)
[2023-06-27] MEDS: hydrOXYzine HCL 50 MG TABLET PO (20:25)
[2023-06-28 00:09] VITALS: RESP 16
[2023-06-28 08:07] LABS: Glucose, Whole Blood 197 mg/dL (60-115)
[2023-06-28 08:45] VITALS: BP 132/78; PULSE 85; RESP 18; TEMP 35.9; O2SAT 97
[2023-06-28] MEDS: Losartan Potassium 25 MG TABLET PO (08:56)
[2023-06-28] MEDS: Sertraline HCL 50 MG TABLET PO (08:56)
[2023-06-28] MEDS: carvediloL 12.5 MG TABLET PO ×2 (08:56→22:19)
[2023-06-28] MEDS: Cyanocobalamin (Vitamin B-12) 500 MCG TABLET PO (08:56)
[2023-06-28] MEDS: Potassium Chloride ER 10 MEQ TABLET.ER PO (08:56)
[2023-06-28] MEDS: metFORMIN HCl 500 MG TABLET PO ×2 (08:56→22:21)
[2023-06-28] MEDS: Furosemide 40 MG TABLET PO (08:56)
[2023-06-28] MEDS: Gabapentin 100 MG CAPSULE PO ×2 (08:57→14:09)
[2023-06-28] MEDS: Omeprazole 20 MG CAPSULE.DR PO (08:57)
[2023-06-28] MEDS: Folic Acid 1 MG TABLET PO (08:57)
[2023-06-28] MEDS: Multivitamin TABLET 1 TAB PO (08:57)
[2023-06-28] MEDS: Insulin Lispro 100 UNIT/ML 3 ML VIAL SUBCUT ×4 (09:00→22:21)
--- NOTE | 2023-06-28 10:14 | HO.PSYCHPN ---
Subjective Subjective Date of Service: 06/28/23 Reason For Visit: Recurrent major depression, alcohol use disorder Subjective Notes: Conditional Voluntary and 3 Day Healthcare Proxy: No Guardianship: No Medical Problems Affecting Mental Status: No Interim History: [facility] to secure a placement in the [place] addiction rehab program. Per team, [facility] will assist pt in keeping apartment. Pt is anxious, angry that Ativan is stopped, unsure about what he will do. Call to mother, Delma Powers [phone]. She believes outright discharge is not a good idea. States both have been talking about sharing an apartment (pt states no, this will not be an option) Mom reports pt has a tendency to increase alcohol when isolated. She discussed concerns about pt's medical sx, weight and lack of activity. She is hopeful he will transfer from [facility] to [place] program if possible. Medication Compliance: Yes Side effects from medications: No Attending Groups: Yes Review of Systems Acute medical concerns: No Medical Review of Systems: unchanged Mental Status Exam Mental Status Exam Patient Appearance: Appropriate Patient Orientation: Person, Place, Time and Situation Level of Consciousness: Alert Patient Behavior: Appropriate, Talkative and Good Eye Contact Mood Description: Depressed and Anxious Affect Description: Flat Patient Cognition Impaired: No Ability to Follow Directions: Good Speech Pattern: Spontaneous Speech Memory Description: Episodic Impaired Hallucinations: None Delusions: Not Present Thought Process: Rumination Thought Content: positive for Perseveration Depressive Symptoms: Increased Anxiety, Hopelessness, Increased Fatigue and Loss of Energy Judgement: Fair Diagnostics Vital Signs (24Hr): Vital Signs - 24 hr 06/27/23 17:36 06/28/23 00:09 06/28/23 08:45 Temperature 96.1 F L 96.6 F L Pulse Rate 88 85 Respiratory Rate 16 16 18 Blood Pressure 125/58 L 132/78 Pulse Oximetry 94 97 Oxygen Delivery Method Room Air Room Air BMI result Body Mass Index 59.9 Labs 06/20/23 06:28 06/27/23 08:04 Labs: Laboratory Results - last 48 hr 06/26/23 06/26/23 06/26/23 12:47 16:49 22:13 Creatinine Estim Creat Clear Calc Estimated GFR POC Glucose 197 H 198 H 201 H 06/27/23 06/27/23 06/27/23 08:04 08:15 12:35 Creatinine 0.69 Estim Creat Clear Calc 223.0 Estimated GFR > 60 POC Glucose 216 H 236 H 06/27/23 06/27/23 06/28/23 16:24 20:19 08:03 Creatinine Estim Creat Clear Calc Estimated GFR POC Glucose 173 H 169 H 197 H Imaging Radiology Impressions: ITS Impressions Chest X-Ray 06/21/23 07:57 IMPRESSION: No acute cardiopulmonary process. Medications Medications Current Medications Acetaminophen (Acetaminophen 325 Mg Tablet) 650 mg PO Q6H PRN PRN Reason: Headache/Pain Mild Scale (1-3) Al Hydroxide/Mg Hydroxide (Magnesium Hydrox/Alum Hydrox 30 Ml Oral.Susp) 30 ml PO Q6H PRN PRN Reason: Heartburn/Nausea Last Admin: 06/24/23 08:58 Dose: 30 ml Albuterol Sulfate (Albuterol Sulfate 90 Mcg 8 Gm Inhaler) 1 puff INHALE RQ4H PRN PRN Reason: Shortness Of Breath Atorvastatin Calcium (Atorvastatin Calcium 40 Mg Tablet) 40 mg PO BEDTIME [facility] Last Admin: 06/27/23 20:22 Dose: 40 mg Carvedilol (Carvedilol 12.5 Mg Tablet) 12.5 mg PO BID [facility]; Protocol Last Admin: 06/28/23 08:56 Dose: 12.5 mg Cyanocobalamin (Cyanocobalamin (Vitamin B-12) 500 Mcg Tablet) 500 mcg PO DAILY [facility] Last Admin: 06/28/23 08:56 Dose: 500 mcg Dextrose (Dextrose 50 % 25 Gm/50 Ml Syringe) 25 gm IVPUSH Q15M PRN; Protocol PRN Reason: per Hypoglycemia Standing Ord. Dextrose (Dextrose 50 % 25 Gm/50 Ml Syringe) 25 gm IVPUSH Q15M PRN; Protocol PRN Reason: per Hypoglycemia Standing Ord. Folic Acid (Folic Acid 1 Mg Tablet) 1 mg PO DAILY [facility] Last Admin: 06/28/23 08:57 Dose: 1 mg Furosemide (Furosemide 40 Mg Tablet) 40 mg PO DAILY [facility]; Protocol Last Admin: 06/28/23 08:56 Dose: 40 mg Gabapentin (Gabapentin 300 Mg Capsule) 300 mg PO BEDTIME [facility] Last Admin: 06/27/23 20:23 Dose: 300 mg Gabapentin (Gabapentin 100 Mg Capsule) 100 mg PO 0900,1500 [facility] Last Admin: 06/28/23 08:57 Dose: 100 mg Glucose (Glucose Gel 15 Gm Gel..Gram.) 15 gm PO Q15M PRN; Protocol PRN Reason: per Hypoglycemia Standing Ord. Glucose (Glucose Gel 15 Gm Gel..Gram.) 15 gm PO Q15M PRN; Protocol PRN Reason: per Hypoglycemia Standing Ord. Hydroxyzine HCl (Hydroxyzine Hcl 50 Mg Tablet) 50 mg PO BID PRN PRN Reason: anxiety Last Admin: 06/27/23 20:25 Dose: 50 mg Hydroxyzine HCl (Hydroxyzine Hcl 25 Mg Tablet) 25 mg PO Q6H PRN PRN Reason: Anxiety Ibuprofen (Ibuprofen 600 Mg Tablet) 600 mg PO TIDWM PRN PRN Reason: Pain, Moderate(Pain Scale 4-6) Insulin Human Lispro (Insulin Lispro 100 Unit/Ml 3 Ml Vial) 0 unit SUBCUT QIDACHS [facility]; Protocol Last Admin: 06/28/23 09:00 Dose: 2 unit Losartan Potassium (Losartan Potassium 25 Mg Tablet) 25 mg PO DAILY [facility]; Protocol Last Admin: 06/28/23 08:56 Dose: 25 mg Magnesium Hydroxide (Milk Of Magnesia 30 Ml Oral.Susp) 30 ml PO DAILY PRN PRN Reason: Constipation Melatonin (Melatonin 3 Mg Tablet) 6 mg PO BEDTIME PRN PRN Reason: Insomnia Last Admin: 06/26/23 21:58 Dose: 6 mg Metformin HCl (Metformin Hcl 500 Mg Tablet) 500 mg PO BID [facility] Last Admin: 06/28/23 08:56 Dose: 500 mg Multivitamins/Vitamin C (Multivitamin Tablet) 1 tab PO DAILY [facility] Last Admin: 06/28/23 08:57 Dose: 1 tab Omeprazole (Omeprazole 20 Mg Capsule.Dr) 20 mg PO DAILY@0630 [facility] Last Admin: 06/28/23 08:57 Dose: 20 mg Potassium Chloride (Potassium Chloride Er 10 Meq Tablet.Er) 10 meq PO DAILY [facility] Last Admin: 06/28/23 08:56 Dose: 10 meq Sertraline HCl (Sertraline Hcl 50 Mg Tablet) 50 mg PO DAILY [facility] Last Admin: 06/28/23 08:56 Dose: 50 mg Trazodone HCl (Trazodone Hcl 50 Mg Tablet) 50 mg PO BEDTIME MRX1 PRN PRN Reason: Insomnia Trazodone HCl (Trazodone Hcl 50 Mg Tablet) 50 mg PO BEDTIME MRX1 PRN PRN Reason: Insomnia Allergies Allergies Allergy/AdvReac Type Severity Reaction Status Date / Time No Known Allergies Allergy Verified 03/13/23 10:59 Assessment & Plan Assessment & Plan (1) MDD (major depressive disorder), recurrent episode, moderate: Status: Acute Code(s): F33.1 - Major depressive disorder, recurrent, moderate Assessment and Plan: Continue current plan of care and regime Discharge planning. (2) Alcohol use disorder, severe, dependence: Status: Acute Code(s): F10.20 - Alcohol dependence, uncomplicated Assessment and Plan: Referral to [place] 6 week in pt program. 06/27/23: CIWA and Lorazepam discontinued Plan [age] year gentleman background systolic heart failure. He has background of alcoholism and nonischemic cardiomyopathy. He had angiogram before by his report and was told that he does not have any coronary disease. He has no anginal chest discomfort currently. Does not look significantly volume overloaded. I think he should stay on his home medications including carvedilol, Lasix daily 40 mg and losartan. Blood pressure is high then losartan can be titrated to a target blood pressure less than 130/80. He has a b2b sales representative and has been following up with him and should continue to follow with his primary b2b sales representative. Thank you for allowing me to participate in the care of your patient. Please feel free to contact me if you have any questions. Plan 06/24 lower Prilosec keep rest the same 06/25 keep same treatment 06/26/23 Team working on [place] 6 week program transfer Increase Sertraline to 50 mg daily Gabapentin 100 mg 9am 3pm to trial to address anxiety. 06/28/23 Continue current regime and plan. TDN to 06/29. Pt undecided about retracting this. Informed Consent: understands Reason for continued inpatient stay Substantial Risk for: rapid decompensation and med/psych decompensation Time Spent With Patient Time: Total time managing care of this patient today ____ minutes.
[2023-06-28 12:17] LABS: Glucose, Whole Blood 257 mg/dL (60-115)
[2023-06-28 17:48] LABS: Glucose, Whole Blood 278 mg/dL (60-115)
[2023-06-28 21:30] VITALS: BP 108/50; PULSE 86; TEMP 36.8
[2023-06-28 22:13] LABS: Glucose, Whole Blood 291 mg/dL (60-115)
[2023-06-28] MEDS: Melatonin 3 MG TABLET 6 MG PO (22:18)
[2023-06-28] MEDS: Gabapentin 300 MG CAPSULE PO (22:19)
[2023-06-28] MEDS: Atorvastatin Calcium 40 MG TABLET PO (22:19)
[2023-06-29 08:43] LABS: Glucose, Whole Blood 216 mg/dL (60-115)
[2023-06-29 09:15] VITALS: BP 127/60; PULSE 94; RESP 18; TEMP 36.4; O2SAT 97
[2023-06-29] MEDS: Multivitamin TABLET 1 TAB PO (09:32)
[2023-06-29] MEDS: metFORMIN HCl 500 MG TABLET PO ×2 (09:32→21:55)
[2023-06-29] MEDS: carvediloL 12.5 MG TABLET PO ×2 (09:32→21:55)
[2023-06-29] MEDS: Potassium Chloride ER 10 MEQ TABLET.ER PO (09:33)
[2023-06-29] MEDS: Omeprazole 20 MG CAPSULE.DR PO (09:33)
[2023-06-29] MEDS: Folic Acid 1 MG TABLET PO (09:33)
[2023-06-29] MEDS: Sertraline HCL 50 MG TABLET PO (09:34)
[2023-06-29] MEDS: Losartan Potassium 25 MG TABLET PO (09:34)
[2023-06-29] MEDS: Cyanocobalamin (Vitamin B-12) 500 MCG TABLET PO (09:34)
[2023-06-29] MEDS: Gabapentin 100 MG CAPSULE PO ×2 (09:34→14:51)
[2023-06-29] MEDS: Insulin Lispro 100 UNIT/ML 3 ML VIAL SUBCUT ×4 (09:35→21:57)
[2023-06-29] MEDS: Furosemide 40 MG TABLET PO (09:49)
[2023-06-29 12:15] LABS: Glucose, Whole Blood 223 mg/dL (60-115)
[2023-06-29 16:47] LABS: Glucose, Whole Blood 269 mg/dL (60-115)
--- NOTE | 2023-06-29 17:49 | P.PNPSI_ITS ---
Subjective Subjective Date of Service: 06/29/23 Reason For Visit: Recurrent major depression, alcohol use disorder Subjective Notes: Conditional Voluntary and 3 Day (retraction) Healthcare Proxy: No Guardianship: No Medical Problems Affecting Mental Status: No Interim History: Pt retracted [facility] [place] [facility] encouraged him to remain in pt and prepare to [facility] to [facility] when available. Pt struggling with milieu intensity today. I need to level out Reports feeling irritable- continues with anger that Lorazepam was stopped. Discussed mood stabilizer trial and he expressed interest. Also discussed a return to Lexapro which he feels worked better. Discussed the need to take one daily-not double dose if a dose was missed or stopped. He agrees as he reports SE when dosing increases. Medication Compliance: Yes Side effects from medications: No Attending Groups: Yes Review of Systems Acute medical concerns: No Medical Review of Systems: unchanged Mental Status Exam Mental Status Exam Patient Appearance: Appropriate Patient Orientation: Person, Place, Time and Situation Level of Consciousness: Alert Patient Behavior: Appropriate, Talkative and Good Eye Contact Mood Description: Depressed, Anxious and Angry Affect Description: Flat Patient Cognition Impaired: No Ability to Follow Directions: Good Speech Pattern: Spontaneous Speech Memory Description: Episodic Impaired Hallucinations: None Delusions: Not Present Thought Process: Rumination Thought Content: positive for Perseveration Depressive Symptoms: Increased Anxiety, Increased Irritability, Hopelessness, Increased Fatigue and Loss of Energy Judgement: Fair Diagnostics Vital Signs (24Hr): Vital Signs - 24 hr 06/28/23 21:30 06/29/23 09:15 Temperature 98.2 F 97.6 F Pulse Rate 86 94 Respiratory Rate 18 Blood Pressure 108/50 L 127/60 Pulse Oximetry 97 Oxygen Delivery Method Room Air BMI result Body Mass Index 59.9 Labs 06/20/23 06:28 06/27/23 08:04 Labs: Laboratory Results - last 48 hr 06/27/23 06/28/23 06/28/23 20:19 08:03 12:13 POC Glucose 169 H 197 H 257 H 06/28/23 06/28/23 06/29/23 17:20 22:04 08:39 POC Glucose 278 H 291 H 216 H 06/29/23 06/29/23 12:12 16:40 POC Glucose 223 H 269 H Imaging Radiology Impressions: ITS Impressions Chest X-Ray 06/21/23 07:57 IMPRESSION: No acute cardiopulmonary process. Medications Medications Current Medications Acetaminophen (Acetaminophen 325 Mg Tablet) 650 mg PO Q6H PRN PRN Reason: Headache/Pain Mild Scale (1-3) Al Hydroxide/Mg Hydroxide (Magnesium Hydrox/Alum Hydrox 30 Ml Oral.Susp) 30 ml PO Q6H PRN PRN Reason: Heartburn/Nausea Last Admin: 06/24/23 08:58 Dose: 30 ml Albuterol Sulfate (Albuterol Sulfate 90 Mcg 8 Gm Inhaler) 1 puff INHALE RQ4H PRN PRN Reason: Shortness Of Breath Atorvastatin Calcium (Atorvastatin Calcium 40 Mg Tablet) 40 mg PO BEDTIME [facility] Last Admin: 06/28/23 22:19 Dose: 40 mg Carvedilol (Carvedilol 12.5 Mg Tablet) 12.5 mg PO BID [facility]; Protocol Last Admin: 06/29/23 09:32 Dose: 12.5 mg Cyanocobalamin (Cyanocobalamin (Vitamin B-12) 500 Mcg Tablet) 500 mcg PO DAILY [facility] Last Admin: 06/29/23 09:34 Dose: 500 mcg Dextrose (Dextrose 50 % 25 Gm/50 Ml Syringe) 25 gm IVPUSH Q15M PRN; Protocol PRN Reason: per Hypoglycemia Standing Ord. Dextrose (Dextrose 50 % 25 Gm/50 Ml Syringe) 25 gm IVPUSH Q15M PRN; Protocol PRN Reason: per Hypoglycemia Standing Ord. Folic Acid (Folic Acid 1 Mg Tablet) 1 mg PO DAILY [facility] Last Admin: 06/29/23 09:33 Dose: 1 mg Furosemide (Furosemide 40 Mg Tablet) 40 mg PO DAILY [facility]; Protocol Last Admin: 06/29/23 09:49 Dose: 40 mg Gabapentin (Gabapentin 300 Mg Capsule) 300 mg PO BEDTIME [facility] Last Admin: 06/28/23 22:19 Dose: 300 mg Gabapentin (Gabapentin 100 Mg Capsule) 100 mg PO 0900,1500 [facility] Last Admin: 06/29/23 14:51 Dose: 100 mg Glucose (Glucose Gel 15 Gm Gel..Gram.) 15 gm PO Q15M PRN; Protocol PRN Reason: per Hypoglycemia Standing Ord. Glucose (Glucose Gel 15 Gm Gel..Gram.) 15 gm PO Q15M PRN; Protocol PRN Reason: per Hypoglycemia Standing Ord. Hydroxyzine HCl (Hydroxyzine Hcl 50 Mg Tablet) 50 mg PO BID PRN PRN Reason: anxiety Last Admin: 06/27/23 20:25 Dose: 50 mg Hydroxyzine HCl (Hydroxyzine Hcl 25 Mg Tablet) 25 mg PO Q6H PRN PRN Reason: Anxiety Ibuprofen (Ibuprofen 600 Mg Tablet) 600 mg PO TIDWM PRN PRN Reason: Pain, Moderate(Pain Scale 4-6) Insulin Human Lispro (Insulin Lispro 100 Unit/Ml 3 Ml Vial) 0 unit SUBCUT QIDACHS [facility]; Protocol Last Admin: 06/29/23 12:19 Dose: 4 unit Losartan Potassium (Losartan Potassium 25 Mg Tablet) 25 mg PO DAILY [facility]; Protocol Last Admin: 06/29/23 09:34 Dose: 25 mg Magnesium Hydroxide (Milk Of Magnesia 30 Ml Oral.Susp) 30 ml PO DAILY PRN PRN Reason: Constipation Melatonin (Melatonin 3 Mg Tablet) 6 mg PO BEDTIME PRN PRN Reason: Insomnia Last Admin: 06/28/23 22:18 Dose: 6 mg Metformin HCl (Metformin Hcl 500 Mg Tablet) 500 mg PO BID [facility] Last Admin: 06/29/23 09:32 Dose: 500 mg Multivitamins/Vitamin C (Multivitamin Tablet) 1 tab PO DAILY [facility] Last Admin: 06/29/23 09:32 Dose: 1 tab Omeprazole (Omeprazole 20 Mg Capsule.Dr) 20 mg PO DAILY@0630 [facility] Last Admin: 06/29/23 09:33 Dose: 20 mg Potassium Chloride (Potassium Chloride Er 10 Meq Tablet.Er) 10 meq PO DAILY [facility] Last Admin: 06/29/23 09:33 Dose: 10 meq Sertraline HCl (Sertraline Hcl 50 Mg Tablet) 50 mg PO DAILY [facility] Last Admin: 06/29/23 09:34 Dose: 50 mg Trazodone HCl (Trazodone Hcl 50 Mg Tablet) 50 mg PO BEDTIME MRX1 PRN PRN Reason: Insomnia Trazodone HCl (Trazodone Hcl 50 Mg Tablet) 50 mg PO BEDTIME MRX1 PRN PRN Reason: Insomnia Allergies Allergies Allergy/AdvReac Type Severity Reaction Status Date / Time No Known Allergies Allergy Verified 03/13/23 10:59 Assessment & Plan Assessment & Plan (1) MDD (major depressive disorder), recurrent episode, moderate: Status: Acute Code(s): F33.1 - Major depressive disorder, recurrent, moderate Assessment and Plan: Continue current plan of care and regime Discharge planning. (2) Alcohol use disorder, severe, dependence: Status: Acute Code(s): F10.20 - Alcohol dependence, uncomplicated Assessment and Plan: Referral to [place] 6 week in pt program. 06/27/23: CIWA and Lorazepam discontinued Plan [age] year gentleman background systolic heart failure. He has background of alcoholism and nonischemic cardiomyopathy. He had angiogram before by his report and was told that he does not have any coronary disease. He has no anginal chest discomfort currently. Does not look significantly volume overloaded. I think he should stay on his home medications including carvedilol, Lasix daily 40 mg and losartan. Blood pressure is high then losartan can be titrated to a target blood pressure less than 130/80. 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 Thank you for allowing me to participate in the care of your patient. Please feel free to contact me if you have any questions. Plan 06/24 lower Prilosec keep rest the same 06/25 keep same treatment 06/26/23 Team working on [place] 6 week program transfer Increase Sertraline to 50 mg daily Gabapentin 100 mg 9am 3pm to trial to address anxiety. 06/28/23 Continue current regime and plan. TDN to 06/29. Pt undecided about retracting this. 06/29/23 TDN retracted DC Sertraline Lexapro 20 mg daily Abilify 2 mg daily Patient educated on: medication risk/benefits and therapeutic strategies Informed Consent: understands Reason for continued inpatient stay Substantial Risk for: harm to self, rapid decompensation and med/psych decompensation Time Spent With Patient Time: Total time managing care of this patient today ____ minutes.
[2023-06-29 19:27] VITALS: BP 117/64; PULSE 88; RESP 18; TEMP 36.2; O2SAT 94
[2023-06-29 21:37] LABS: Glucose, Whole Blood 280 mg/dL (60-115)
[2023-06-29] MEDS: Melatonin 3 MG TABLET 6 MG PO (21:56)
[2023-06-29] MEDS: Atorvastatin Calcium 40 MG TABLET PO (21:56)
[2023-06-29] MEDS: Gabapentin 300 MG CAPSULE PO (21:56)
[2023-06-30 08:15] LABS: Glucose, Whole Blood 232 mg/dL (60-115)
[2023-06-30 08:30] VITALS: BP 122/57; PULSE 83; RESP 16; TEMP 36.1; O2SAT 95
[2023-06-30] MEDS: ARIPiprazole 2 MG TABLET PO (08:31)
[2023-06-30] MEDS: metFORMIN HCl 500 MG TABLET PO ×2 (08:32→23:09)
[2023-06-30] MEDS: Escitalopram Oxalate 20 MG TABLET PO (08:32)
[2023-06-30] MEDS: Gabapentin 100 MG CAPSULE PO ×2 (08:32→14:14)
[2023-06-30] MEDS: carvediloL 12.5 MG TABLET PO ×2 (08:32→23:09)
[2023-06-30] MEDS: Losartan Potassium 25 MG TABLET PO (08:32)
[2023-06-30] MEDS: Multivitamin TABLET 1 TAB PO (08:32)
[2023-06-30] MEDS: Omeprazole 20 MG CAPSULE.DR PO (08:32)
[2023-06-30] MEDS: Folic Acid 1 MG TABLET PO (08:32)
[2023-06-30] MEDS: Potassium Chloride ER 10 MEQ TABLET.ER PO (08:33)
[2023-06-30] MEDS: Insulin Lispro 100 UNIT/ML 3 ML VIAL SUBCUT ×4 (08:33→23:06)
[2023-06-30] MEDS: Cyanocobalamin (Vitamin B-12) 500 MCG TABLET PO (08:33)
[2023-06-30] MEDS: Furosemide 40 MG TABLET PO (08:33)
--- NOTE | 2023-06-30 09:01 | HO.PSYCHPN ---
Subjective Subjective Date of Service: 06/30/23 Reason For Visit: Recurrent major depression, alcohol use disorder Subjective Notes: Conditional Voluntary Healthcare Proxy: No Guardianship: No Medical Problems Affecting Mental Status: No Interim History: Pt tolerating med changes, denies SE. Call from mother, asking if pt had left or if he remains. Discussed with mother, patient. [facility] [place] [facility] are working on an admission for him. Pt having some struggles as the milieu is active and stressful at this time, better today he reports. Denies chest pain, denies medical sx currently. Reports he was able to sleep last night. Medication Compliance: Yes Side effects from medications: No Attending Groups: Yes Review of Systems Acute medical concerns: No Medical Review of Systems: unchanged Mental Status Exam Mental Status Exam Patient Appearance: Appropriate Patient Orientation: Person, Place, Time and Situation Level of Consciousness: Alert Patient Behavior: Appropriate, Talkative and Good Eye Contact Mood Description: Flat Affect Description: Flat Patient Cognition Impaired: No Ability to Follow Directions: Good Speech Pattern: Spontaneous Speech Memory Description: Episodic Impaired Hallucinations: None Delusions: Not Present Thought Process: Rumination Thought Content: positive for Perseveration and positive for Suicidal Ideation (denies) Depressive Symptoms: Increased Anxiety, Increased Fatigue and Loss of Energy Judgement: Fair Diagnostics Vital Signs (24Hr): Vital Signs - 24 hr 06/29/23 09:15 06/29/23 19:27 06/30/23 08:30 Temperature 97.6 F 97.2 F 96.9 F Pulse Rate 94 88 83 Respiratory Rate 18 18 16 Blood Pressure 127/60 117/64 122/57 L Pulse Oximetry 97 94 95 Oxygen Delivery Method Room Air Room Air Room Air BMI result Body Mass Index 59.9 Labs 06/20/23 06:28 06/27/23 08:04 Labs: Laboratory Results - last 48 hr 06/28/23 06/28/23 06/28/23 12:13 17:20 22:04 POC Glucose 257 H 278 H 291 H 06/29/23 06/29/23 06/29/23 08:39 12:12 16:40 POC Glucose 216 H 223 H 269 H 06/29/23 06/30/23 21:33 08:10 POC Glucose 280 H 232 H Imaging Radiology Impressions: ITS Impressions Chest X-Ray 06/21/23 07:57 IMPRESSION: No acute cardiopulmonary process. Medications Medications Current Medications Acetaminophen (Acetaminophen 325 Mg Tablet) 650 mg PO Q6H PRN PRN Reason: Headache/Pain Mild Scale (1-3) Al Hydroxide/Mg Hydroxide (Magnesium Hydrox/Alum Hydrox 30 Ml Oral.Susp) 30 ml PO Q6H PRN PRN Reason: Heartburn/Nausea Last Admin: 06/24/23 08:58 Dose: 30 ml Albuterol Sulfate (Albuterol Sulfate 90 Mcg 8 Gm Inhaler) 1 puff INHALE RQ4H PRN PRN Reason: Shortness Of Breath Aripiprazole (Aripiprazole 2 Mg Tablet) 2 mg PO DAILY [facility] Last Admin: 06/30/23 08:31 Dose: 2 mg Atorvastatin Calcium (Atorvastatin Calcium 40 Mg Tablet) 40 mg PO BEDTIME [facility] Last Admin: 06/29/23 21:56 Dose: 40 mg Carvedilol (Carvedilol 12.5 Mg Tablet) 12.5 mg PO BID [facility]; Protocol Last Admin: 06/30/23 08:32 Dose: 12.5 mg Cyanocobalamin (Cyanocobalamin (Vitamin B-12) 500 Mcg Tablet) 500 mcg PO DAILY [facility] Last Admin: 06/30/23 08:33 Dose: 500 mcg Dextrose (Dextrose 50 % 25 Gm/50 Ml Syringe) 25 gm IVPUSH Q15M PRN; Protocol PRN Reason: per Hypoglycemia Standing Ord. Dextrose (Dextrose 50 % 25 Gm/50 Ml Syringe) 25 gm IVPUSH Q15M PRN; Protocol PRN Reason: per Hypoglycemia Standing Ord. Escitalopram Oxalate (Escitalopram Oxalate 20 Mg Tablet) 20 mg PO DAILY [facility] Last Admin: 06/30/23 08:32 Dose: 20 mg Folic Acid (Folic Acid 1 Mg Tablet) 1 mg PO DAILY [facility] Last Admin: 06/30/23 08:32 Dose: 1 mg Furosemide (Furosemide 40 Mg Tablet) 40 mg PO DAILY [facility]; Protocol Last Admin: 06/30/23 08:33 Dose: 40 mg Gabapentin (Gabapentin 300 Mg Capsule) 300 mg PO BEDTIME [facility] Last Admin: 06/29/23 21:56 Dose: 300 mg Gabapentin (Gabapentin 100 Mg Capsule) 100 mg PO 0900,1500 [facility] Last Admin: 06/30/23 08:32 Dose: 100 mg Glucose (Glucose Gel 15 Gm Gel..Gram.) 15 gm PO Q15M PRN; Protocol PRN Reason: per Hypoglycemia Standing Ord. Glucose (Glucose Gel 15 Gm Gel..Gram.) 15 gm PO Q15M PRN; Protocol PRN Reason: per Hypoglycemia Standing Ord. Hydroxyzine HCl (Hydroxyzine Hcl 50 Mg Tablet) 50 mg PO BID PRN PRN Reason: anxiety Last Admin: 06/27/23 20:25 Dose: 50 mg Hydroxyzine HCl (Hydroxyzine Hcl 25 Mg Tablet) 25 mg PO Q6H PRN PRN Reason: Anxiety Ibuprofen (Ibuprofen 600 Mg Tablet) 600 mg PO TIDWM PRN PRN Reason: Pain, Moderate(Pain Scale 4-6) Insulin Human Lispro (Insulin Lispro 100 Unit/Ml 3 Ml Vial) 0 unit SUBCUT QIDACHS [facility]; Protocol Last Admin: 06/30/23 08:33 Dose: 4 unit Losartan Potassium (Losartan Potassium 25 Mg Tablet) 25 mg PO DAILY [facility]; Protocol Last Admin: 06/30/23 08:32 Dose: 25 mg Magnesium Hydroxide (Milk Of Magnesia 30 Ml Oral.Susp) 30 ml PO DAILY PRN PRN Reason: Constipation Melatonin (Melatonin 3 Mg Tablet) 6 mg PO BEDTIME PRN PRN Reason: Insomnia Last Admin: 06/29/23 21:56 Dose: 6 mg Metformin HCl (Metformin Hcl 500 Mg Tablet) 500 mg PO BID [facility] Last Admin: 06/30/23 08:32 Dose: 500 mg Multivitamins/Vitamin C (Multivitamin Tablet) 1 tab PO DAILY [facility] Last Admin: 06/30/23 08:32 Dose: 1 tab Omeprazole (Omeprazole 20 Mg Capsule.Dr) 20 mg PO DAILY@0630 [facility] Last Admin: 06/30/23 08:32 Dose: 20 mg Potassium Chloride (Potassium Chloride Er 10 Meq Tablet.Er) 10 meq PO DAILY [facility] Last Admin: 06/30/23 08:33 Dose: 10 meq Trazodone HCl (Trazodone Hcl 50 Mg Tablet) 50 mg PO BEDTIME MRX1 PRN PRN Reason: Insomnia Trazodone HCl (Trazodone Hcl 50 Mg Tablet) 50 mg PO BEDTIME MRX1 PRN PRN Reason: Insomnia Allergies Allergies Allergy/AdvReac Type Severity Reaction Status Date / Time No Known Allergies Allergy Verified 03/13/23 10:59 Assessment & Plan Assessment & Plan (1) MDD (major depressive disorder), recurrent episode, moderate: Status: Acute Code(s): F33.1 - Major depressive disorder, recurrent, moderate Assessment and Plan: Continue current plan of care and regime Discharge planning. (2) Alcohol use disorder, severe, dependence: Status: Acute Code(s): F10.20 - Alcohol dependence, uncomplicated Assessment and Plan: Referral to [place] 6 week in pt program. 06/27/23: CIWA and Lorazepam discontinued Plan [age] year gentleman background systolic heart failure. He has background of alcoholism and nonischemic cardiomyopathy. He had angiogram before by his report and was told that he does not have any coronary disease. He has no anginal chest discomfort currently. Does not look significantly volume overloaded. I think he should stay on his home medications including carvedilol, Lasix daily 40 mg and losartan. Blood pressure is high then losartan can be titrated to a target blood pressure less than 130/80. 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 Thank you for allowing me to participate in the care of your patient. Please feel free to contact me if you have any questions. Plan 06/24 lower Prilosec keep rest the same 06/25 keep same treatment 06/26/23 Team working on [place] 6 week program transfer Increase Sertraline to 50 mg daily Gabapentin 100 mg 9am 3pm to trial to address anxiety. 06/28/23 Continue current regime and plan. TDN to 06/29. Pt undecided about retracting this. 06/29/23 TDN retracted DC Sertraline Lexapro 20 mg daily Abilify 2 mg daily 06/30/23 Continue current regime and plan of care. Patient educated on: therapeutic strategies Informed Consent: understands Reason for continued inpatient stay Substantial Risk for: med/psych decompensation Time Spent With Patient Time: Total time managing care of this patient today ____ minutes.
[2023-06-30 12:19] LABS: Glucose, Whole Blood 275 mg/dL (60-115)
[2023-06-30 16:37] LABS: Glucose, Whole Blood 230 mg/dL (60-115)
[2023-06-30 19:30] VITALS: BP 111/66; PULSE 90; RESP 18; TEMP 36.6; O2SAT 98
[2023-06-30 20:28] LABS: Glucose, Whole Blood 251 mg/dL (60-115)
[2023-06-30] MEDS: Melatonin 3 MG TABLET 6 MG PO (23:08)
[2023-06-30] MEDS: Gabapentin 300 MG CAPSULE PO (23:09)
[2023-06-30] MEDS: Atorvastatin Calcium 40 MG TABLET PO (23:10)
[2023-07-01 07:50] VITALS: BP 117/58; PULSE 86; RESP 16; TEMP 36.6; O2SAT 94
[2023-07-01] MEDS: Escitalopram Oxalate 20 MG TABLET PO (07:52)
[2023-07-01] MEDS: Furosemide 40 MG TABLET PO (07:52)
[2023-07-01] MEDS: Losartan Potassium 25 MG TABLET PO (07:52)
[2023-07-01] MEDS: Cyanocobalamin (Vitamin B-12) 500 MCG TABLET PO (07:52)
[2023-07-01] MEDS: Multivitamin TABLET 1 TAB PO (07:52)
[2023-07-01] MEDS: Omeprazole 20 MG CAPSULE.DR PO (07:53)
[2023-07-01] MEDS: Folic Acid 1 MG TABLET PO (07:53)
[2023-07-01] MEDS: carvediloL 12.5 MG TABLET PO ×2 (07:53→21:56)
[2023-07-01] MEDS: ARIPiprazole 2 MG TABLET PO (07:54)
[2023-07-01] MEDS: Gabapentin 100 MG CAPSULE PO ×2 (07:54→14:08)
[2023-07-01] MEDS: Potassium Chloride ER 10 MEQ TABLET.ER PO (07:54)
[2023-07-01] MEDS: metFORMIN HCl 500 MG TABLET PO ×2 (07:55→21:56)
[2023-07-01 08:17] LABS: Glucose, Whole Blood 277 mg/dL (60-115)
[2023-07-01] MEDS: Insulin Lispro 100 UNIT/ML 3 ML VIAL SUBCUT ×4 (08:21→20:41)
--- NOTE | 2023-07-01 11:53 | HO.PSYCHPN ---
Subjective Subjective Date of Service: 07/01/23 Reason For Visit: Recurrent major depression, alcohol use disorder Subjective Notes: Conditional Voluntary Interim History: Pt tolerating med changes, denies SE. [facility]. He has some anxiety as he has an intake with the program on Monday. Pt having some struggles as the milieu is active and stressful at this time, better today he reports. Denies chest pain, denies medical sx currently. Reports he was able to sleep last night. Medication Compliance: Yes Side effects from medications: No Attending Groups: Yes Review of Systems Acute medical concerns: No Review of Systems Review of Systems As per HPI. Yes all other systems are reviewed and are negative Constitutional: Reports as per HPI, Reports no additional constitutional complaints, Reports body ache(s), Reports difficulty sleeping, Reports excessive sweating, Reports fatigue, Reports lethargy, Reports snoring, Reports stops breathing during sleep, Reports weakness and Reports weight gain Eyes: Reports no additional eye complaints Reports system reviewed and no additional complaints, except as documented Cardiovascular: Reports no additional cardiovascular complaints, Denies chest pain, Reports chest pain at rest, Reports pedal edema, Reports edema, Denies irregular heart rhythm, Reports claudication, Denies leg edema and Reports dyspnea Respiratory: Denies cough, Reports dyspnea, Reports snoring, Denies stridor and Denies wheezing Gastrointestinal: Reports no additional gastrointestinal complaints Genitourinary: Reports no additional male genitourinary complaints Musculoskeletal: Reports no additional musculoskeletal complaints, Reports abnormal gait, Reports arthralgias, Reports joint swelling, Reports limited range of motion, Reports muscle cramps, Reports muscle weakness, Reports numbness, Reports stiffness and Reports tingling Skin/Breast: Reports system reviewed and no additional complaints, except as docu Reports system reviewed and no additional complaints, except as documented, Reports abnormal gait, Reports numbness, Reports tingling and Reports weakness Psychiatric: Reports anxiety, Reports depression, Reports difficulty concentrating, Reports hopelessness, Reports irritability, Reports anhedonia, Reports mood swings and Reports suicidal ideation Endocrine: Reports excessive sweating and Reports fatigue Hematologic/Lymphatic: Reports no additional hematologic/lymphatic complaints Allergic/Immunologic: Reports no additional allergic/immunologic complaints and Denies wheezing Mental Status Exam Mental Status Exam Patient Appearance: Appropriate Patient Orientation: Person, Place, Time and Situation Level of Consciousness: Alert Patient Behavior: Appropriate, Talkative and Good Eye Contact Mood Description: Anxious and Flat Affect Description: Anxious and Flat Patient Cognition Impaired: No Ability to Follow Directions: Good Speech Pattern: Spontaneous Speech Memory Description: Episodic Impaired Thought Process: Intact Thought Content: positive for Intact Judgement: Fair Diagnostics Vital Signs (24Hr): Vital Signs - 24 hr 06/30/23 19:30 07/01/23 07:50 Temperature 97.9 F 97.9 F Pulse Rate 90 86 Respiratory Rate 18 16 Blood Pressure 111/66 117/58 L Pulse Oximetry 98 94 Oxygen Delivery Method Room Air BMI result Body Mass Index 59.9 Labs 06/20/23 06:28 06/27/23 08:04 Labs: Laboratory Results - last 48 hr 06/29/23 06/29/23 06/29/23 12:12 16:40 21:33 POC Glucose 223 H 269 H 280 H 06/30/23 06/30/23 06/30/23 08:10 12:16 16:33 POC Glucose 232 H 275 H 230 H 06/30/23 07/01/23 20:19 08:12 POC Glucose 251 H 277 H Imaging Radiology Impressions: ITS Impressions Chest X-Ray 06/21/23 07:57 IMPRESSION: No acute cardiopulmonary process. Medications Medications Current Medications Acetaminophen (Acetaminophen 325 Mg Tablet) 650 mg PO Q6H PRN PRN Reason: Headache/Pain Mild Scale (1-3) Al Hydroxide/Mg Hydroxide (Magnesium Hydrox/Alum Hydrox 30 Ml Oral.Susp) 30 ml PO Q6H PRN PRN Reason: Heartburn/Nausea Last Admin: 06/24/23 08:58 Dose: 30 ml Albuterol Sulfate (Albuterol Sulfate 90 Mcg 8 Gm Inhaler) 1 puff INHALE RQ4H PRN PRN Reason: Shortness Of Breath Aripiprazole (Aripiprazole 2 Mg Tablet) 2 mg PO DAILY [facility] Last Admin: 07/01/23 07:54 Dose: 2 mg Atorvastatin Calcium (Atorvastatin Calcium 40 Mg Tablet) 40 mg PO BEDTIME [facility] Last Admin: 06/30/23 23:10 Dose: 40 mg Carvedilol (Carvedilol 12.5 Mg Tablet) 12.5 mg PO BID [facility]; Protocol Last Admin: 07/01/23 07:53 Dose: 12.5 mg Cyanocobalamin (Cyanocobalamin (Vitamin B-12) 500 Mcg Tablet) 500 mcg PO DAILY [facility] Last Admin: 07/01/23 07:52 Dose: 500 mcg Dextrose (Dextrose 50 % 25 Gm/50 Ml Syringe) 25 gm IVPUSH Q15M PRN; Protocol PRN Reason: per Hypoglycemia Standing Ord. Dextrose (Dextrose 50 % 25 Gm/50 Ml Syringe) 25 gm IVPUSH Q15M PRN; Protocol PRN Reason: per Hypoglycemia Standing Ord. Escitalopram Oxalate (Escitalopram Oxalate 20 Mg Tablet) 20 mg PO DAILY [facility] Last Admin: 07/01/23 07:52 Dose: 20 mg Folic Acid (Folic Acid 1 Mg Tablet) 1 mg PO DAILY [facility] Last Admin: 07/01/23 07:53 Dose: 1 mg Furosemide (Furosemide 40 Mg Tablet) 40 mg PO DAILY [facility]; Protocol Last Admin: 07/01/23 07:52 Dose: 40 mg Gabapentin (Gabapentin 300 Mg Capsule) 300 mg PO BEDTIME [facility] Last Admin: 06/30/23 23:09 Dose: 300 mg Gabapentin (Gabapentin 100 Mg Capsule) 100 mg PO 0900,1500 [facility] Last Admin: 07/01/23 07:54 Dose: 100 mg Glucose (Glucose Gel 15 Gm Gel..Gram.) 15 gm PO Q15M PRN; Protocol PRN Reason: per Hypoglycemia Standing Ord. Glucose (Glucose Gel 15 Gm Gel..Gram.) 15 gm PO Q15M PRN; Protocol PRN Reason: per Hypoglycemia Standing Ord. Hydroxyzine HCl (Hydroxyzine Hcl 50 Mg Tablet) 50 mg PO BID PRN PRN Reason: anxiety Last Admin: 06/27/23 20:25 Dose: 50 mg Hydroxyzine HCl (Hydroxyzine Hcl 25 Mg Tablet) 25 mg PO Q6H PRN PRN Reason: Anxiety Ibuprofen (Ibuprofen 600 Mg Tablet) 600 mg PO TIDWM PRN PRN Reason: Pain, Moderate(Pain Scale 4-6) Insulin Human Lispro (Insulin Lispro 100 Unit/Ml 3 Ml Vial) 0 unit SUBCUT QIDACHS [facility]; Protocol Last Admin: 07/01/23 08:21 Dose: 6 unit Losartan Potassium (Losartan Potassium 25 Mg Tablet) 25 mg PO DAILY [facility]; Protocol Last Admin: 07/01/23 07:52 Dose: 25 mg Magnesium Hydroxide (Milk Of Magnesia 30 Ml Oral.Susp) 30 ml PO DAILY PRN PRN Reason: Constipation Melatonin (Melatonin 3 Mg Tablet) 6 mg PO BEDTIME PRN PRN Reason: Insomnia Last Admin: 06/30/23 23:08 Dose: 6 mg Metformin HCl (Metformin Hcl 500 Mg Tablet) 500 mg PO BID [facility] Last Admin: 07/01/23 07:55 Dose: 500 mg Multivitamins/Vitamin C (Multivitamin Tablet) 1 tab PO DAILY [facility] Last Admin: 07/01/23 07:52 Dose: 1 tab Omeprazole (Omeprazole 20 Mg Capsule.Dr) 20 mg PO DAILY@0630 [facility] Last Admin: 07/01/23 07:53 Dose: 20 mg Potassium Chloride (Potassium Chloride Er 10 Meq Tablet.Er) 10 meq PO DAILY [facility] Last Admin: 07/01/23 07:54 Dose: 10 meq Trazodone HCl (Trazodone Hcl 50 Mg Tablet) 50 mg PO BEDTIME MRX1 PRN PRN Reason: Insomnia Trazodone HCl (Trazodone Hcl 50 Mg Tablet) 50 mg PO BEDTIME MRX1 PRN PRN Reason: Insomnia Allergies Allergies Allergy/AdvReac Type Severity Reaction Status Date / Time No Known Allergies Allergy Verified 03/13/23 10:59 Assessment & Plan Assessment & Plan (1) MDD (major depressive disorder), recurrent episode, moderate: Status: Acute Code(s): F33.1 - Major depressive disorder, recurrent, moderate Assessment and Plan: Continue current plan of care and regime Discharge planning. (2) Alcohol use disorder, severe, dependence: Status: Acute Code(s): F10.20 - Alcohol dependence, uncomplicated Assessment and Plan: [facility] 06[facility]/23: CIWA and Lorazepam discontinued Plan [age] year gentleman background systolic heart failure. He has background of alcoholism and nonischemic cardiomyopathy. He had angiogram before by his report and was told that he does not have any coronary disease. He has no anginal chest discomfort currently. Does not look significantly volume overloaded. I think he should stay on his home medications including carvedilol, Lasix daily 40 mg and losartan. Blood pressure is high then losartan can be titrated to a target blood pressure less than 130/80. He has a patient services specialist and has been following up with him and should continue to follow with his primary patient services specialist. Thank you for allowing me to participate in the care of your patient. Please feel free to contact me if you have any questions. Plan 06/24 lower Prilosec keep rest the same 06/25 keep same treatment 06/26/23 [facility] Increase Sertraline to 50 mg daily Gabapentin 100 mg 9am 3pm to trial to address anxiety. 06/28/23 Continue current regime and plan. TDN to 06/29. Pt undecided about retracting this. 06/29/23 TDN retracted DC Sertraline Lexapro 20 mg daily Abilify 2 mg daily 06/30/23 Continue current regime and plan of care. 07/01/23 Continue treatment plan Patient educated on: medication risk/benefits Informed Consent: understands Reason for continued inpatient stay Substantial Risk for: harm to self and inability to function Time Spent With Patient Time: Total time managing care of this patient today __30__ minutes.
[2023-07-01 12:08] LABS: Glucose, Whole Blood 304 mg/dL (60-115)
[2023-07-01 17:22] LABS: Glucose, Whole Blood 283 mg/dL (60-115)
[2023-07-01 20:37] LABS: Glucose, Whole Blood 302 mg/dL (60-115)
[2023-07-01 21:45] VITALS: BP 120/61; PULSE 93; TEMP 36.4; O2SAT 92
[2023-07-01] MEDS: Gabapentin 300 MG CAPSULE PO (21:56)
[2023-07-01] MEDS: Atorvastatin Calcium 40 MG TABLET PO (21:56)
[2023-07-01] MEDS: Melatonin 3 MG TABLET 6 MG PO (21:56)
[2023-07-02 08:21] LABS: Glucose, Whole Blood 251 mg/dL (60-115)
[2023-07-02] MEDS: Gabapentin 100 MG CAPSULE PO ×2 (08:41→14:02)
[2023-07-02] MEDS: ARIPiprazole 2 MG TABLET PO (08:41)
[2023-07-02] MEDS: Potassium Chloride ER 10 MEQ TABLET.ER PO (08:41)
[2023-07-02] MEDS: Cyanocobalamin (Vitamin B-12) 500 MCG TABLET PO (08:41)
[2023-07-02] MEDS: Escitalopram Oxalate 20 MG TABLET PO (08:41)
[2023-07-02] MEDS: Furosemide 40 MG TABLET PO (08:41)
[2023-07-02] MEDS: Multivitamin TABLET 1 TAB PO (08:41)
[2023-07-02] MEDS: Folic Acid 1 MG TABLET PO (08:41)
[2023-07-02] MEDS: metFORMIN HCl 500 MG TABLET PO ×2 (08:41→21:52)
[2023-07-02] MEDS: carvediloL 12.5 MG TABLET PO ×2 (08:41→21:52)
[2023-07-02] MEDS: Insulin Lispro 100 UNIT/ML 3 ML VIAL SUBCUT ×4 (08:42→22:03)
[2023-07-02] MEDS: Losartan Potassium 25 MG TABLET PO (08:42)
[2023-07-02] MEDS: Omeprazole 20 MG CAPSULE.DR PO (08:42)
[2023-07-02 08:47] VITALS: BP 134/90; PULSE 86; RESP 18; TEMP 36; O2SAT 92
[2023-07-02 12:15] LABS: Glucose, Whole Blood 279 mg/dL (60-115)
--- NOTE | 2023-07-02 12:34 | HO.PSYCHPN ---
Subjective Subjective Date of Service: 07/02/23 Reason For Visit: Recurrent major depression, alcohol use disorder Subjective Notes: Conditional Voluntary Healthcare Proxy: No Guardianship: No Interim History: Pt tolerating med changes, denies SE. He has some anxiety as he has an intake with the [place] [facility] on Monday. Reports feeling calmer today; more hopeful. No SI or HI. Medication Compliance: Yes Side effects from medications: No Attending Groups: Intermittent Review of Systems Acute medical concerns: No Review of Systems Review of Systems As per HPI. Yes all other systems are reviewed and are negative Constitutional: Reports as per HPI, Reports no additional constitutional complaints, Reports body ache(s), Reports difficulty sleeping, Reports excessive sweating, Reports fatigue, Reports lethargy, Reports snoring, Reports stops breathing during sleep, Reports weakness and Reports weight gain Eyes: Reports no additional eye complaints Reports system reviewed and no additional complaints, except as documented Cardiovascular: Reports no additional cardiovascular complaints, Denies chest pain, Reports chest pain at rest, Reports pedal edema, Reports edema, Denies irregular heart rhythm, Reports claudication, Denies leg edema and Reports dyspnea Respiratory: Denies cough, Reports dyspnea, Reports snoring, Denies stridor and Denies wheezing Gastrointestinal: Reports no additional gastrointestinal complaints Genitourinary: Reports no additional male genitourinary complaints Musculoskeletal: Reports no additional musculoskeletal complaints, Reports abnormal gait, Reports arthralgias, Reports joint swelling, Reports limited range of motion, Reports muscle cramps, Reports muscle weakness, Reports numbness, Reports stiffness and Reports tingling Skin/Breast: Reports system reviewed and no additional complaints, except as docu Reports system reviewed and no additional complaints, except as documented, Reports abnormal gait, Reports numbness, Reports tingling and Reports weakness Psychiatric: Reports anxiety, Reports depression, Reports difficulty concentrating, Reports hopelessness, Reports irritability, Reports anhedonia, Reports mood swings and Reports suicidal ideation Endocrine: Reports excessive sweating and Reports fatigue Hematologic/Lymphatic: Reports no additional hematologic/lymphatic complaints Allergic/Immunologic: Reports no additional allergic/immunologic complaints and Denies wheezing Mental Status Exam Mental Status Exam Patient Appearance: Appropriate Patient Orientation: Person, Place, Time and Situation Level of Consciousness: Alert Patient Behavior: Appropriate, Talkative and Good Eye Contact Mood Description: Anxious and Flat Affect Description: Calm Patient Cognition Impaired: No Ability to Follow Directions: Good Speech Pattern: Spontaneous Speech Memory Description: Episodic Impaired Thought Process: Intact and Goal Oriented Thought Content: positive for Intact and positive for Goal Oriented Judgement: Good Diagnostics Vital Signs (24Hr): Vital Signs - 24 hr 07/01/23 21:45 07/02/23 08:47 Temperature 97.6 F 96.8 F Pulse Rate 93 86 Respiratory Rate 18 Blood Pressure 120/61 134/90 H Pulse Oximetry 92 92 Oxygen Delivery Method Room Air Room Air BMI result Body Mass Index 59.9 Labs 06/20/23 06:28 06/27/23 08:04 Labs: Laboratory Results - last 48 hr 06/30/23 06/30/23 07/01/23 16:33 20:19 08:12 POC Glucose 230 H 251 H 277 H 07/01/23 07/01/23 07/01/23 12:05 17:19 20:33 POC Glucose 304 H 283 H 302 H 07/02/23 07/02/23 08:14 12:11 POC Glucose 251 H 279 H Imaging Radiology Impressions: ITS Impressions Chest X-Ray 06/21/23 07:57 IMPRESSION: No acute cardiopulmonary process. Medications Medications Current Medications Acetaminophen (Acetaminophen 325 Mg Tablet) 650 mg PO Q6H PRN PRN Reason: Headache/Pain Mild Scale (1-3) Al Hydroxide/Mg Hydroxide (Magnesium Hydrox/Alum Hydrox 30 Ml Oral.Susp) 30 ml PO Q6H PRN PRN Reason: Heartburn/Nausea Last Admin: 06/24/23 08:58 Dose: 30 ml Albuterol Sulfate (Albuterol Sulfate 90 Mcg 8 Gm Inhaler) 1 puff INHALE RQ4H PRN PRN Reason: Shortness Of Breath Aripiprazole (Aripiprazole 2 Mg Tablet) 2 mg PO DAILY [facility] Last Admin: 07/02/23 08:41 Dose: 2 mg Atorvastatin Calcium (Atorvastatin Calcium 40 Mg Tablet) 40 mg PO BEDTIME [facility] Last Admin: 07/01/23 21:56 Dose: 40 mg Carvedilol (Carvedilol 12.5 Mg Tablet) 12.5 mg PO BID [facility]; Protocol Last Admin: 07/02/23 08:41 Dose: 12.5 mg Cyanocobalamin (Cyanocobalamin (Vitamin B-12) 500 Mcg Tablet) 500 mcg PO DAILY [facility] Last Admin: 07/02/23 08:41 Dose: 500 mcg Dextrose (Dextrose 50 % 25 Gm/50 Ml Syringe) 25 gm IVPUSH Q15M PRN; Protocol PRN Reason: per Hypoglycemia Standing Ord. Dextrose (Dextrose 50 % 25 Gm/50 Ml Syringe) 25 gm IVPUSH Q15M PRN; Protocol PRN Reason: per Hypoglycemia Standing Ord. Escitalopram Oxalate (Escitalopram Oxalate 20 Mg Tablet) 20 mg PO DAILY [facility] Last Admin: 07/02/23 08:41 Dose: 20 mg Folic Acid (Folic Acid 1 Mg Tablet) 1 mg PO DAILY [facility] Last Admin: 07/02/23 08:41 Dose: 1 mg Furosemide (Furosemide 40 Mg Tablet) 40 mg PO DAILY [facility]; Protocol Last Admin: 07/02/23 08:41 Dose: 40 mg Gabapentin (Gabapentin 300 Mg Capsule) 300 mg PO BEDTIME [facility] Last Admin: 07/01/23 21:56 Dose: 300 mg Gabapentin (Gabapentin 100 Mg Capsule) 100 mg PO 0900,1500 [facility] Last Admin: 07/02/23 08:41 Dose: 100 mg Glucose (Glucose Gel 15 Gm Gel..Gram.) 15 gm PO Q15M PRN; Protocol PRN Reason: per Hypoglycemia Standing Ord. Glucose (Glucose Gel 15 Gm Gel..Gram.) 15 gm PO Q15M PRN; Protocol PRN Reason: per Hypoglycemia Standing Ord. Hydroxyzine HCl (Hydroxyzine Hcl 50 Mg Tablet) 50 mg PO BID PRN PRN Reason: anxiety Last Admin: 06/27/23 20:25 Dose: 50 mg Hydroxyzine HCl (Hydroxyzine Hcl 25 Mg Tablet) 25 mg PO Q6H PRN PRN Reason: Anxiety Ibuprofen (Ibuprofen 600 Mg Tablet) 600 mg PO TIDWM PRN PRN Reason: Pain, Moderate(Pain Scale 4-6) Insulin Human Lispro (Insulin Lispro 100 Unit/Ml 3 Ml Vial) 0 unit SUBCUT QIDACHS [facility]; Protocol Last Admin: 07/02/23 12:16 Dose: 6 unit Losartan Potassium (Losartan Potassium 25 Mg Tablet) 25 mg PO DAILY [facility]; Protocol Last Admin: 07/02/23 08:42 Dose: 25 mg Magnesium Hydroxide (Milk Of Magnesia 30 Ml Oral.Susp) 30 ml PO DAILY PRN PRN Reason: Constipation Melatonin (Melatonin 3 Mg Tablet) 6 mg PO BEDTIME PRN PRN Reason: Insomnia Last Admin: 07/01/23 21:56 Dose: 6 mg Metformin HCl (Metformin Hcl 500 Mg Tablet) 500 mg PO BID [facility] Last Admin: 07/02/23 08:41 Dose: 500 mg Multivitamins/Vitamin C (Multivitamin Tablet) 1 tab PO DAILY [facility] Last Admin: 07/02/23 08:41 Dose: 1 tab Omeprazole (Omeprazole 20 Mg Capsule.Dr) 20 mg PO DAILY@0630 [facility] Last Admin: 07/02/23 08:42 Dose: 20 mg Potassium Chloride (Potassium Chloride Er 10 Meq Tablet.Er) 10 meq PO DAILY [facility] Last Admin: 07/02/23 08:41 Dose: 10 meq Trazodone HCl (Trazodone Hcl 50 Mg Tablet) 50 mg PO BEDTIME MRX1 PRN PRN Reason: Insomnia Trazodone HCl (Trazodone Hcl 50 Mg Tablet) 50 mg PO BEDTIME MRX1 PRN PRN Reason: Insomnia Allergies Allergies Allergy/AdvReac Type Severity Reaction Status Date / Time No Known Allergies Allergy Verified 03/13/23 10:59 Assessment & Plan Assessment & Plan (1) MDD (major depressive disorder), recurrent episode, moderate: Status: Acute Code(s): F33.1 - Major depressive disorder, recurrent, moderate Assessment and Plan: Continue current plan of care and regime Discharge planning. (2) Alcohol use disorder, severe, dependence: Status: Acute Code(s): F10.20 - Alcohol dependence, uncomplicated Assessment and Plan: Referral to [place] 6 week in pt program. 06/27/23: CIWA and Lorazepam discontinued Plan [age] year gentleman background systolic heart failure. He has background of alcoholism and nonischemic cardiomyopathy. He had angiogram before by his report and was told that he does not have any coronary disease. He has no anginal chest discomfort currently. Does not look significantly volume overloaded. I think he should stay on his home medications including carvedilol, Lasix daily 40 mg and losartan. Blood pressure is high then losartan can be titrated to a target blood pressure less than 130/80. He has a biodiesel technology manager and has been following up with him and should continue to follow with his primary biodiesel technology manager. Thank you for allowing me to participate in the care of your patient. Please feel free to contact me if you have any questions. Plan 06/24 lower Prilosec keep rest the same 06/25 keep same treatment 06/26/23 Team working on [place] 6 week program transfer Increase Sertraline to 50 mg daily Gabapentin 100 mg 9am 3pm to trial to address anxiety. 06/28/23 Continue current regime and plan. TDN to 06/29. Pt undecided about retracting this. 06/29/23 TDN retracted DC Sertraline Lexapro 20 mg daily Abilify 2 mg daily 06/30/23 Continue current regime and plan of care. 07/01/23 Continue treatment plan 07/02/23 continue treatment plan Reason for continued inpatient stay Substantial Risk for: harm to self and inability to function Time Spent With Patient Time: Total time managing care of this patient today ____ minutes.
[2023-07-02 17:23] LABS: Glucose, Whole Blood 244 mg/dL (60-115)
[2023-07-02 18:00] VITALS: BP 117/58; PULSE 91; RESP 18; TEMP 36.4; O2SAT 94
[2023-07-02 21:51] LABS: Glucose, Whole Blood 268 mg/dL (60-115)
[2023-07-02] MEDS: Atorvastatin Calcium 40 MG TABLET PO (21:52)
[2023-07-02] MEDS: Gabapentin 300 MG CAPSULE PO (21:52)
[2023-07-02] MEDS: Melatonin 3 MG TABLET 6 MG PO (21:54)
[2023-07-03 08:08] LABS: Glucose, Whole Blood 237 mg/dL (60-115)
[2023-07-03] MEDS: Insulin Lispro 100 UNIT/ML 3 ML VIAL SUBCUT ×3 (08:34→17:29)
[2023-07-03] MEDS: Magnesium Hydrox/Alum Hydrox 30 ML ORAL.SUSP PO (08:34)
[2023-07-03] MEDS: ARIPiprazole 2 MG TABLET PO (08:36)
[2023-07-03] MEDS: Losartan Potassium 25 MG TABLET PO (08:37)
[2023-07-03] MEDS: Potassium Chloride ER 10 MEQ TABLET.ER PO (08:38)
[2023-07-03] MEDS: metFORMIN HCl 500 MG TABLET PO ×2 (08:38→21:19)
[2023-07-03] MEDS: Escitalopram Oxalate 20 MG TABLET PO (08:38)
[2023-07-03] MEDS: Multivitamin TABLET 1 TAB PO (08:38)
[2023-07-03] MEDS: Folic Acid 1 MG TABLET PO (08:38)
[2023-07-03] MEDS: carvediloL 12.5 MG TABLET PO ×2 (08:39→21:19)
[2023-07-03] MEDS: Gabapentin 100 MG CAPSULE PO ×2 (08:39→14:37)
[2023-07-03] MEDS: Furosemide 40 MG TABLET PO (08:39)
[2023-07-03] MEDS: Cyanocobalamin (Vitamin B-12) 500 MCG TABLET PO (08:39)
[2023-07-03 08:43] VITALS: BP 119/65; PULSE 86; RESP 18; TEMP 36.7; O2SAT 94
[2023-07-03 12:40] LABS: Glucose, Whole Blood 260 mg/dL (60-115)
--- NOTE | 2023-07-03 15:19 | HO.PSYCHPN ---
Subjective Subjective Date of Service: 07/03/23 Reason For Visit: Recurrent major depression, alcohol use disorder Subjective Notes: Conditional Voluntary Healthcare Proxy: No Guardianship: No Medical Problems Affecting Mental Status: No Interim History: Reports an increase of sx due to frustration in waiting for program acceptance. Medication review-Will increase Abilify augment and add low dose Wellbutrin to assist with sx mgt. Frustrated Medication Compliance: Yes Side effects from medications: No Attending Groups: Yes Review of Systems Acute medical concerns: No Medical Review of Systems: unchanged Mental Status Exam Mental Status Exam Patient Appearance: Appropriate Patient Orientation: Person, Place, Time and Situation Level of Consciousness: Alert Patient Behavior: Appropriate, Talkative, Cooperative and Good Eye Contact Mood Description: Constricted Affect Description: Constricted Patient Cognition Impaired: No Ability to Follow Directions: Good Speech Pattern: Spontaneous Speech Memory Description: Intact Hallucinations: None Delusions: Not Present Thought Process: Intact and Goal Oriented Thought Content: positive for Circumstantial and positive for Goal Oriented Depressive Symptoms: Increased Irritability, Increased Fatigue, Thoughts of /Suicide (denies) and Loss of Energy Judgement: Fair Diagnostics Vital Signs (24Hr): Vital Signs - 24 hr 07/02/23 18:00 07/03/23 08:43 Temperature 97.5 F 98.1 F Pulse Rate 91 86 Respiratory Rate 18 18 Blood Pressure 117/58 L 119/65 Pulse Oximetry 94 94 Oxygen Delivery Method Room Air Room Air BMI result Body Mass Index 59.9 Labs 06/20/23 06:28 06/27/23 08:04 Labs: Laboratory Results - last 48 hr 07/01/23 07/01/23 07/02/23 17:19 20:33 08:14 POC Glucose 283 H 302 H 251 H 07/02/23 07/02/23 07/02/23 12:11 17:19 21:46 POC Glucose 279 H 244 H 268 H 07/03/23 07/03/23 08:05 12:36 POC Glucose 237 H 260 H Imaging Radiology Impressions: ITS Impressions Chest X-Ray 06/21/23 07:57 IMPRESSION: No acute cardiopulmonary process. Medications Medications Current Medications Acetaminophen (Acetaminophen 325 Mg Tablet) 650 mg PO Q6H PRN PRN Reason: Headache/Pain Mild Scale (1-3) Al Hydroxide/Mg Hydroxide (Magnesium Hydrox/Alum Hydrox 30 Ml Oral.Susp) 30 ml PO Q6H PRN PRN Reason: Heartburn/Nausea Last Admin: 07/03/23 08:34 Dose: 30 ml Albuterol Sulfate (Albuterol Sulfate 90 Mcg 8 Gm Inhaler) 1 puff INHALE RQ4H PRN PRN Reason: Shortness Of Breath Aripiprazole (Aripiprazole 5 Mg Tablet) 5 mg PO DAILY [facility] Atorvastatin Calcium (Atorvastatin Calcium 40 Mg Tablet) 40 mg PO BEDTIME TOBY Last Admin: 07/02/23 21:52 Dose: 40 mg Bupropion HCl (Bupropion Hcl 75 Mg Tablet) 75 mg PO DAILY [facility] Carvedilol (Carvedilol 12.5 Mg Tablet) 12.5 mg PO BID [facility]; Protocol Last Admin: 07/03/23 08:39 Dose: 12.5 mg Cyanocobalamin (Cyanocobalamin (Vitamin B-12) 500 Mcg Tablet) 500 mcg PO DAILY [facility] Last Admin: 07/03/23 08:39 Dose: 500 mcg Dextrose (Dextrose 50 % 25 Gm/50 Ml Syringe) 25 gm IVPUSH Q15M PRN; Protocol PRN Reason: per Hypoglycemia Standing Ord. Dextrose (Dextrose 50 % 25 Gm/50 Ml Syringe) 25 gm IVPUSH Q15M PRN; Protocol PRN Reason: per Hypoglycemia Standing Ord. Escitalopram Oxalate (Escitalopram Oxalate 20 Mg Tablet) 20 mg PO DAILY [facility] Last Admin: 07/03/23 08:38 Dose: 20 mg Folic Acid (Folic Acid 1 Mg Tablet) 1 mg PO DAILY [facility] Last Admin: 07/03/23 08:38 Dose: 1 mg Furosemide (Furosemide 40 Mg Tablet) 40 mg PO DAILY [facility]; Protocol Last Admin: 07/03/23 08:39 Dose: 40 mg Gabapentin (Gabapentin 300 Mg Capsule) 300 mg PO BEDTIME TOBY Last Admin: 07/02/23 21:52 Dose: 300 mg Gabapentin (Gabapentin 100 Mg Capsule) 100 mg PO 0900,1500 [facility] Last Admin: 07/03/23 14:37 Dose: 100 mg Glucose (Glucose Gel 15 Gm Gel..Gram.) 15 gm PO Q15M PRN; Protocol PRN Reason: per Hypoglycemia Standing Ord. Glucose (Glucose Gel 15 Gm Gel..Gram.) 15 gm PO Q15M PRN; Protocol PRN Reason: per Hypoglycemia Standing Ord. Hydroxyzine HCl (Hydroxyzine Hcl 50 Mg Tablet) 50 mg PO BID PRN PRN Reason: anxiety Last Admin: 06/27/23 20:25 Dose: 50 mg Hydroxyzine HCl (Hydroxyzine Hcl 25 Mg Tablet) 25 mg PO Q6H PRN PRN Reason: Anxiety Ibuprofen (Ibuprofen 600 Mg Tablet) 600 mg PO TIDWM PRN PRN Reason: Pain, Moderate(Pain Scale 4-6) Insulin Human Lispro (Insulin Lispro 100 Unit/Ml 3 Ml Vial) 0 unit SUBCUT QIDACHS [facility]; Protocol Last Admin: 07/03/23 12:41 Dose: 6 unit Losartan Potassium (Losartan Potassium 25 Mg Tablet) 25 mg PO DAILY [facility]; Protocol Last Admin: 07/03/23 08:37 Dose: 25 mg Magnesium Hydroxide (Milk Of Magnesia 30 Ml Oral.Susp) 30 ml PO DAILY PRN PRN Reason: Constipation Melatonin (Melatonin 3 Mg Tablet) 6 mg PO BEDTIME PRN PRN Reason: Insomnia Last Admin: 07/02/23 21:54 Dose: 6 mg Metformin HCl (Metformin Hcl 500 Mg Tablet) 500 mg PO BID [facility] Last Admin: 07/03/23 08:38 Dose: 500 mg Multivitamins/Vitamin C (Multivitamin Tablet) 1 tab PO DAILY [facility] Last Admin: 07/03/23 08:38 Dose: 1 tab Omeprazole (Omeprazole 20 Mg Capsule.Dr) 20 mg PO DAILY@0630 [facility] Last Admin: 07/03/23 06:40 Dose: Not Given Potassium Chloride (Potassium Chloride Er 10 Meq Tablet.Er) 10 meq PO DAILY [facility] Last Admin: 07/03/23 08:38 Dose: 10 meq Trazodone HCl (Trazodone Hcl 50 Mg Tablet) 50 mg PO BEDTIME MRX1 PRN PRN Reason: Insomnia Trazodone HCl (Trazodone Hcl 50 Mg Tablet) 50 mg PO BEDTIME MRX1 PRN PRN Reason: Insomnia Allergies Allergies Allergy/AdvReac Type Severity Reaction Status Date / Time No Known Allergies Allergy Verified 03/13/23 10:59 Assessment & Plan Assessment & Plan (1) MDD (major depressive disorder), recurrent episode, moderate: Status: Acute Code(s): F33.1 - Major depressive disorder, recurrent, moderate Assessment and Plan: Continue current plan of care and regime Discharge planning. (2) Alcohol use disorder, severe, dependence: Status: Acute Code(s): F10.20 - Alcohol dependence, uncomplicated Assessment and Plan: Referral to [facility] 6 week in pt program. 06/27/23: CIWA and Lorazepam discontinued Plan [age] year gentleman background systolic heart failure. He has background of alcoholism and nonischemic cardiomyopathy. He had angiogram before by his report and was told that he does not have any coronary disease. He has no anginal chest discomfort currently. Does not look significantly volume overloaded. I think he should stay on his home medications including carvedilol, Lasix daily 40 mg and losartan. Blood pressure is high then losartan can be titrated to a target blood pressure less than 130/80. 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 Thank you for allowing me to participate in the care of your patient. Please feel free to contact me if you have any questions. Plan 06/24 lower Prilosec keep rest the same 06/25 keep same treatment 06/26/23 Team working on [facility] 6 week program transfer Increase Sertraline to 50 mg daily Gabapentin 100 mg 9am 3pm to trial to address anxiety. 06/28/23 Continue current regime and plan. TDN to 06/29. Pt undecided about retracting this. 06/29/23 TDN retracted DC Sertraline Lexapro 20 mg daily Abilify 2 mg daily 06/30/23 Continue current regime and plan of care. 07/01/23 Continue treatment plan 07/02/23 continue treatment plan 07/03/23 Increase Abilify to 5 mg a.m. Wellbutrin 75 mg a.m. Patient educated on: medication risk/benefits and therapeutic strategies Informed Consent: understands Reason for continued inpatient stay Substantial Risk for: harm to self, inability to function, rapid decompensation and med/psych decompensation Time Spent With Patient Time: Total time managing care of this patient today ____ minutes.
[2023-07-03 17:20] LABS: Glucose, Whole Blood 278 mg/dL (60-115)
[2023-07-03 20:28] LABS: Glucose, Whole Blood 286 mg/dL (60-115)
[2023-07-03 21:17] VITALS: BP 118/59; PULSE 92; RESP 16; TEMP 36.5; O2SAT 93
[2023-07-03] MEDS: Atorvastatin Calcium 40 MG TABLET PO (21:19)
[2023-07-03] MEDS: Gabapentin 300 MG CAPSULE PO (21:19)
[2023-07-03] MEDS: Melatonin 3 MG TABLET 6 MG PO (21:22)
[2023-07-04 08:00] LABS: Glucose, Whole Blood 252 mg/dL (60-115)
[2023-07-04] MEDS: Insulin Lispro 100 UNIT/ML 3 ML VIAL SUBCUT ×4 (08:31→20:33)
[2023-07-04] MEDS: Potassium Chloride ER 10 MEQ TABLET.ER PO (08:32)
[2023-07-04] MEDS: Escitalopram Oxalate 20 MG TABLET PO (08:33)
[2023-07-04] MEDS: Losartan Potassium 25 MG TABLET PO (08:33)
[2023-07-04] MEDS: Multivitamin TABLET 1 TAB PO (08:33)
[2023-07-04] MEDS: Furosemide 40 MG TABLET PO (08:33)
[2023-07-04] MEDS: Folic Acid 1 MG TABLET PO (08:33)
[2023-07-04] MEDS: Cyanocobalamin (Vitamin B-12) 500 MCG TABLET PO (08:33)
[2023-07-04] MEDS: Gabapentin 100 MG CAPSULE PO ×2 (08:33→15:13)
[2023-07-04] MEDS: buPROPion HCL 75 MG TABLET PO (08:34)
[2023-07-04] MEDS: ARIPiprazole 5 MG TABLET PO (08:34)
[2023-07-04] MEDS: metFORMIN HCl 500 MG TABLET PO ×2 (08:34→20:33)
[2023-07-04 08:38] VITALS: BP 110/57; PULSE 72; RESP 18; TEMP 36.1; O2SAT 93
[2023-07-04 08:54] LABS: Creatinine Clr Calc Pharmacy 216.7; Estimated Glomerular Filt Rate > 60
[2023-07-04] MEDS: carvediloL 12.5 MG TABLET PO ×2 (10:21→20:33)
[2023-07-04 12:18] LABS: Glucose, Whole Blood 280 mg/dL (60-115)
[2023-07-04 16:45] LABS: Glucose, Whole Blood 223 mg/dL (60-115)
[2023-07-04 16:56] VITALS: BP 113/52; PULSE 92; RESP 16; TEMP 36.3; O2SAT 92
--- NOTE | 2023-07-04 18:23 | P.PNPSI_ITS ---
Subjective Subjective Date of Service: 07/04/23 Reason For Visit: Recurrent major depression, alcohol use disorder Subjective Notes: Conditional Voluntary Healthcare Proxy: No Guardianship: No Medical Problems Affecting Mental Status: No Interim History: Tolerating medication increases Continues to [facility] They did not follow up with pt in a scheduled telephone appt this week. Messages left for the program Medication Compliance: Yes Side effects from medications: No Attending Groups: Yes Review of Systems Acute medical concerns: No Medical Review of Systems: unchanged Mental Status Exam Mental Status Exam Patient Appearance: Appropriate Patient Orientation: Person, Place, Time and Situation Level of Consciousness: Alert Patient Behavior: Appropriate, Talkative, Cooperative and Good Eye Contact Mood Description: Constricted Affect Description: Constricted Patient Cognition Impaired: No Ability to Follow Directions: Good Speech Pattern: Spontaneous Speech Memory Description: Intact Hallucinations: None Delusions: Not Present Thought Process: Intact and Goal Oriented Thought Content: positive for Circumstantial and positive for Goal Oriented Depressive Symptoms: Increased Irritability, Increased Fatigue, Thoughts of /Suicide (denies) and Loss of Energy Judgement: Fair Diagnostics Vital Signs (24Hr): Vital Signs - 24 hr 07/03/23 21:17 07/04/23 08:38 07/04/23 16:56 Temperature 97.7 F 97.0 F 97.4 F Pulse Rate 92 72 92 Respiratory Rate 16 18 16 Blood Pressure 118/59 L 110/57 L 113/52 L Pulse Oximetry 93 93 92 Oxygen Delivery Method Room Air Room Air Room Air BMI result Body Mass Index 59.9 Labs 06/20/23 06:28 07/04/23 08:20 Labs: Laboratory Results - last 48 hr 07/02/23 07/03/23 07/03/23 21:46 08:05 12:36 Creatinine Estim Creat Clear Calc Estimated GFR POC Glucose 268 H 237 H 260 H 07/03/23 07/03/23 07/04/23 17:01 20:24 07:55 Creatinine Estim Creat Clear Calc Estimated GFR POC Glucose 278 H 286 H 252 H 07/04/23 07/04/23 07/04/23 08:20 12:15 16:41 Creatinine 0.71 Estim Creat Clear Calc 216.7 Estimated GFR > 60 POC Glucose 280 H 223 H Imaging Radiology Impressions: ITS Impressions Chest X-Ray 08/09/23 07:57 IMPRESSION: No acute cardiopulmonary process. Medications Medications Current Medications Acetaminophen (Acetaminophen 325 Mg Tablet) 650 mg PO Q6H PRN PRN Reason: Headache/Pain Mild Scale (1-3) Al Hydroxide/Mg Hydroxide (Magnesium Hydrox/Alum Hydrox 30 Ml Oral.Susp) 30 ml PO Q6H PRN PRN Reason: Heartburn/Nausea Last Admin: 07/03/23 08:34 Dose: 30 ml Albuterol Sulfate (Albuterol Sulfate 90 Mcg 8 Gm Inhaler) 1 puff INHALE RQ4H PRN PRN Reason: Shortness Of Breath Aripiprazole (Aripiprazole 5 Mg Tablet) 5 mg PO DAILY [facility] Last Admin: 07/04/23 08:34 Dose: 5 mg Atorvastatin Calcium (Atorvastatin Calcium 40 Mg Tablet) 40 mg PO BEDTIME TOBY Last Admin: 07/03/23 21:19 Dose: 40 mg Bupropion HCl (Bupropion Hcl 75 Mg Tablet) 75 mg PO DAILY [facility] Last Admin: 07/04/23 08:34 Dose: 75 mg Carvedilol (Carvedilol 12.5 Mg Tablet) 12.5 mg PO BID [facility]; Protocol Last Admin: 07/04/23 10:21 Dose: 12.5 mg Cyanocobalamin (Cyanocobalamin (Vitamin B-12) 500 Mcg Tablet) 500 mcg PO DAILY [facility] Last Admin: 07/04/23 08:33 Dose: 500 mcg Dextrose (Dextrose 50 % 25 Gm/50 Ml Syringe) 25 gm IVPUSH Q15M PRN; Protocol PRN Reason: per Hypoglycemia Standing Ord. Dextrose (Dextrose 50 % 25 Gm/50 Ml Syringe) 25 gm IVPUSH Q15M PRN; Protocol PRN Reason: per Hypoglycemia Standing Ord. Escitalopram Oxalate (Escitalopram Oxalate 20 Mg Tablet) 20 mg PO DAILY TOBY Last Admin: 07/04/23 08:33 Dose: 20 mg Folic Acid (Folic Acid 1 Mg Tablet) 1 mg PO DAILY TO[facility] Last Admin: 07/04/23 08:33 Dose: 1 mg Furosemide (Furosemide 40 Mg Tablet) 40 mg PO DAILY [facility]; Protocol Last Admin: 07/04/23 08:33 Dose: 40 mg Gabapentin (Gabapentin 300 Mg Capsule) 300 mg PO BEDTIME TOBY Last Admin: 07/03/23 21:19 Dose: 300 mg Gabapentin (Gabapentin 100 Mg Capsule) 100 mg PO 0900,1500 TO[facility] Last Admin: 07/04/23 15:13 Dose: 100 mg Glucose (Glucose Gel 15 Gm Gel..Gram.) 15 gm PO Q15M PRN; Protocol PRN Reason: per Hypoglycemia Standing Ord. Glucose (Glucose Gel 15 Gm Gel..Gram.) 15 gm PO Q15M PRN; Protocol PRN Reason: per Hypoglycemia Standing Ord. Hydroxyzine HCl (Hydroxyzine Hcl 50 Mg Tablet) 50 mg PO BID PRN PRN Reason: anxiety Last Admin: 06/27/23 20:25 Dose: 50 mg Hydroxyzine HCl (Hydroxyzine Hcl 25 Mg Tablet) 25 mg PO Q6H PRN PRN Reason: Anxiety Ibuprofen (Ibuprofen 600 Mg Tablet) 600 mg PO TIDWM PRN PRN Reason: Pain, Moderate(Pain Scale 4-6) Insulin Human Lispro (Insulin Lispro 100 Unit/Ml 3 Ml Vial) 0 unit SUBCUT QIDACHS [facility]; Protocol Last Admin: 07/04/23 17:48 Dose: 4 unit Losartan Potassium (Losartan Potassium 25 Mg Tablet) 25 mg PO DAILY [facility]; Protocol Last Admin: 07/04/23 08:33 Dose: 25 mg Magnesium Hydroxide (Milk Of Magnesia 30 Ml Oral.Susp) 30 ml PO DAILY PRN PRN Reason: Constipation Melatonin (Melatonin 3 Mg Tablet) 6 mg PO BEDTIME PRN PRN Reason: Insomnia Last Admin: 07/03/23 21:22 Dose: 6 mg Metformin HCl (Metformin Hcl 500 Mg Tablet) 500 mg PO BID [facility] Last Admin: 07/04/23 08:34 Dose: 500 mg Multivitamins/Vitamin C (Multivitamin Tablet) 1 tab PO DAILY [facility] Last Admin: 07/04/23 08:33 Dose: 1 tab Omeprazole (Omeprazole 20 Mg Capsule.Dr) 20 mg PO DAILY@0630 [facility] Last Admin: 07/04/23 08:31 Dose: Not Given Potassium Chloride (Potassium Chloride Er 10 Meq Tablet.Er) 10 meq PO DAILY [facility] Last Admin: 07/04/23 08:32 Dose: 10 meq Trazodone HCl (Trazodone Hcl 50 Mg Tablet) 50 mg PO BEDTIME MRX1 PRN PRN Reason: Insomnia Trazodone HCl (Trazodone Hcl 50 Mg Tablet) 50 mg PO BEDTIME MRX1 PRN PRN Reason: Insomnia Allergies Allergies Allergy/AdvReac Type Severity Reaction Status Date / Time No Known Allergies Allergy Verified 03/13/23 10:59 Assessment & Plan Assessment & Plan (1) MDD (major depressive disorder), recurrent episode, moderate: Status: Acute Code(s): F33.1 - Major depressive disorder, recurrent, moderate Assessment and Plan: Continue current plan of care and regime Discharge planning. (2) Alcohol use disorder, severe, dependence: Status: Acute Code(s): F10.20 - Alcohol dependence, uncomplicated Assessment and Plan: Referral to [facility] 6 week in pt program. 06/27/23: CIWA and Lorazepam discontinued Plan [age] year gentleman background systolic heart failure. He has background of alcoholism and nonischemic cardiomyopathy. He had angiogram before by his report and was told that he does not have any coronary disease. He has no anginal chest discomfort currently. Does not look significantly volume overloaded. I think he should stay on his home medications including carvedilol, Lasix daily 40 mg and losartan. Blood pressure is high then losartan can be titrated to a target blood pressure less than 130/80. 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 Thank you for allowing me to participate in the care of your patient. Please feel free to contact me if you have any questions. Plan 06/24 lower Prilosec keep rest the same 06/25 keep same treatment 06/26/23 Team working on [facility] 6 week program transfer Increase Sertraline to 50 mg daily Gabapentin 100 mg 9am 3pm to trial to address anxiety. 06/28/23 Continue current regime and plan. TDN to 06/29. Pt undecided about retracting this. 06/29/23 TDN retracted DC Sertraline Lexapro 20 mg daily Abilify 2 mg daily 06/30/23 Continue current regime and plan of care. 07/01/23 Continue treatment plan 07/02/23 continue treatment plan 07/03/23 Increase Abilify to 5 mg a.m. Wellbutrin 75 mg a.m. 07/04/23 Continue current regime and plan of care. Patient educated on: therapeutic strategies Informed Consent: understands Reason for continued inpatient stay Substantial Risk for: med/psych decompensation Time Spent With Patient Time: Total time managing care of this patient today ____ minutes.
[2023-07-04 19:42] LABS: Glucose, Whole Blood 256 mg/dL (60-115)
[2023-07-04] MEDS: Atorvastatin Calcium 40 MG TABLET PO (20:33)
[2023-07-04] MEDS: Gabapentin 300 MG CAPSULE PO (20:33)
[2023-07-05 07:56] LABS: Glucose, Whole Blood 204 mg/dL (60-115)
[2023-07-05 08:40] VITALS: BP 132/63; PULSE 80; RESP 16; TEMP 36.1; O2SAT 92
[2023-07-05] MEDS: buPROPion HCL 75 MG TABLET PO (08:42)
[2023-07-05] MEDS: Potassium Chloride ER 10 MEQ TABLET.ER PO (08:42)
[2023-07-05] MEDS: Escitalopram Oxalate 20 MG TABLET PO (08:42)
[2023-07-05] MEDS: metFORMIN HCl 500 MG TABLET PO ×2 (08:42→22:01)
[2023-07-05] MEDS: Gabapentin 100 MG CAPSULE PO ×2 (08:42→14:30)
[2023-07-05] MEDS: carvediloL 12.5 MG TABLET PO ×2 (08:42→22:00)
[2023-07-05] MEDS: Furosemide 40 MG TABLET PO (08:42)
[2023-07-05] MEDS: ARIPiprazole 5 MG TABLET PO (08:43)
[2023-07-05] MEDS: Losartan Potassium 25 MG TABLET PO (08:43)
[2023-07-05] MEDS: Omeprazole 20 MG CAPSULE.DR PO (08:43)
[2023-07-05] MEDS: Cyanocobalamin (Vitamin B-12) 500 MCG TABLET PO (08:43)
[2023-07-05] MEDS: Folic Acid 1 MG TABLET PO (08:43)
[2023-07-05] MEDS: Multivitamin TABLET 1 TAB PO (08:43)
[2023-07-05] MEDS: Insulin Lispro 100 UNIT/ML 3 ML VIAL SUBCUT ×4 (08:45→20:42)
--- NOTE | 2023-07-05 10:37 | PC.NURSE ---
Pt signed 3 day notice up on Monday07/10/23. , LUDY, and UR made aware.
[2023-07-05 12:21] LABS: Glucose, Whole Blood 248 mg/dL (60-115)
--- NOTE | 2023-07-05 13:00 | P.PNPSI_ITS ---
Subjective Subjective Date of Service: 07/05/23 Reason For Visit: Recurrent major depression, alcohol use disorder Subjective Notes: Conditional Voluntary and 3 Day Healthcare Proxy: No Guardianship: No Medical Problems Affecting Mental Status: No Interim History: Exp[facility] this [facility]. TDN filed. Pt would like to trial [facility]. Tolerating regime, reports to team he is experiencing some increased relief from sx. Medication Compliance: Yes Side effects from medications: No Attending Groups: Yes Review of Systems Acute medical concerns: No Medical Review of Systems: unchanged Mental Status Exam Mental Status Exam Patient Appearance: Appropriate Patient Orientation: Person, Place, Time and Situation Level of Consciousness: Alert Patient Behavior: Appropriate, Talkative, Cooperative and Good Eye Contact Mood Description: Constricted Affect Description: Constricted Patient Cognition Impaired: No Ability to Follow Directions: Good Speech Pattern: Spontaneous Speech Memory Description: Intact Hallucinations: None Delusions: Not Present Thought Process: Intact and Goal Oriented Thought Content: positive for Circumstantial and positive for Goal Oriented Depressive Symptoms: Increased Irritability, Increased Fatigue, Thoughts of /Suicide (denies) and Loss of Energy Judgement: Fair Diagnostics Vital Signs (24Hr): Vital Signs - 24 hr 07/04/23 16:56 07/05/23 08:40 Temperature 97.4 F 96.9 F Pulse Rate 92 80 Respiratory Rate 16 16 Blood Pressure 113/52 L 132/63 Pulse Oximetry 92 92 Oxygen Delivery Method Room Air Room Air BMI result Body Mass Index 59.9 Labs 06/20/23 06:28 07/04/23 08:20 Labs: Laboratory Results - last 48 hr 07/03/23 07/03/23 07/04/23 17:01 20:24 07:55 Creatinine Estim Creat Clear Calc Estimated GFR POC Glucose 278 H 286 H 252 H 07/04/23 07/04/23 07/04/23 08:20 12:15 16:41 Creatinine 0.71 Estim Creat Clear Calc 216.7 Estimated GFR > 60 POC Glucose 280 H 223 H 07/04/23 07/05/23 07/05/23 19:37 07:52 12:17 Creatinine Estim Creat Clear Calc Estimated GFR POC Glucose 256 H 204 H 248 H Imaging Radiology Impressions: ITS Impressions Chest X-Ray 06/21/23 07:57 IMPRESSION: No acute cardiopulmonary process. Medications Medications Current Medications Acetaminophen (Acetaminophen 325 Mg Tablet) 650 mg PO Q6H PRN PRN Reason: Headache/Pain Mild Scale (1-3) Al Hydroxide/Mg Hydroxide (Magnesium Hydrox/Alum Hydrox 30 Ml Oral.Susp) 30 ml PO Q6H PRN PRN Reason: Heartburn/Nausea Last Admin: 07/03/23 08:34 Dose: 30 ml Albuterol Sulfate (Albuterol Sulfate 90 Mcg 8 Gm Inhaler) 1 puff INHALE RQ4H PRN PRN Reason: Shortness Of Breath Aripiprazole (Aripiprazole 5 Mg Tablet) 5 mg PO DAILY [facility] Last Admin: 07/05/23 08:43 Dose: 5 mg Atorvastatin Calcium (Atorvastatin Calcium 40 Mg Tablet) 40 mg PO BEDTIME TOBY Last Admin: 07/04/23 20:33 Dose: 40 mg Bupropion HCl (Bupropion Hcl 75 Mg Tablet) 75 mg PO DAILY [facility] Last Admin: 07/05/23 08:42 Dose: 75 mg Carvedilol (Carvedilol 12.5 Mg Tablet) 12.5 mg PO BID [facility]; Protocol Last Admin: 07/05/23 08:42 Dose: 12.5 mg Cyanocobalamin (Cyanocobalamin (Vitamin B-12) 500 Mcg Tablet) 500 mcg PO DAILY [facility] Last Admin: 07/05/23 08:43 Dose: 500 mcg Dextrose (Dextrose 50 % 25 Gm/50 Ml Syringe) 25 gm IVPUSH Q15M PRN; Protocol PRN Reason: per Hypoglycemia Standing Ord. Dextrose (Dextrose 50 % 25 Gm/50 Ml Syringe) 25 gm IVPUSH Q15M PRN; Protocol PRN Reason: per Hypoglycemia Standing Ord. Escitalopram Oxalate (Escitalopram Oxalate 20 Mg Tablet) 20 mg PO DAILY [facility] Last Admin: 07/05/23 08:42 Dose: 20 mg Folic Acid (Folic Acid 1 Mg Tablet) 1 mg PO DAILY [facility] Last Admin: 07/05/23 08:43 Dose: 1 mg Furosemide (Furosemide 40 Mg Tablet) 40 mg PO DAILY [facility]; Protocol Last Admin: 07/05/23 08:42 Dose: 40 mg Gabapentin (Gabapentin 300 Mg Capsule) 300 mg PO BEDTIME TOBY Last Admin: 07/04/23 20:33 Dose: 300 mg Gabapentin (Gabapentin 100 Mg Capsule) 100 mg PO 0900,1500 [facility] Last Admin: 07/05/23 08:42 Dose: 100 mg Glucose (Glucose Gel 15 Gm Gel..Gram.) 15 gm PO Q15M PRN; Protocol PRN Reason: per Hypoglycemia Standing Ord. Glucose (Glucose Gel 15 Gm Gel..Gram.) 15 gm PO Q15M PRN; Protocol PRN Reason: per Hypoglycemia Standing Ord. Hydroxyzine HCl (Hydroxyzine Hcl 50 Mg Tablet) 50 mg PO BID PRN PRN Reason: anxiety Last Admin: 06/27/23 20:25 Dose: 50 mg Hydroxyzine HCl (Hydroxyzine Hcl 25 Mg Tablet) 25 mg PO Q6H PRN PRN Reason: Anxiety Ibuprofen (Ibuprofen 600 Mg Tablet) 600 mg PO TIDWM PRN PRN Reason: Pain, Moderate(Pain Scale 4-6) Insulin Human Lispro (Insulin Lispro 100 Unit/Ml 3 Ml Vial) 0 unit SUBCUT QIDACHS [facility]; Protocol Last Admin: 07/05/23 12:24 Dose: 4 unit Losartan Potassium (Losartan Potassium 25 Mg Tablet) 25 mg PO DAILY [facility]; Protocol Last Admin: 07/05/23 08:43 Dose: 25 mg Magnesium Hydroxide (Milk Of Magnesia 30 Ml Oral.Susp) 30 ml PO DAILY PRN PRN Reason: Constipation Melatonin (Melatonin 3 Mg Tablet) 6 mg PO BEDTIME PRN PRN Reason: Insomnia Last Admin: 07/05/23 00:00 Dose: 6 mg Metformin HCl (Metformin Hcl 500 Mg Tablet) 500 mg PO BID [facility] Last Admin: 07/05/23 08:42 Dose: 500 mg Multivitamins/Vitamin C (Multivitamin Tablet) 1 tab PO DAILY [facility] Last Admin: 07/05/23 08:43 Dose: 1 tab Omeprazole (Omeprazole 20 Mg Capsule.Dr) 20 mg PO DAILY@0630 [facility] Last Admin: 07/05/23 08:43 Dose: 20 mg Potassium Chloride (Potassium Chloride Er 10 Meq Tablet.Er) 10 meq PO DAILY [facility] Last Admin: 07/05/23 08:42 Dose: 10 meq Trazodone HCl (Trazodone Hcl 50 Mg Tablet) 50 mg PO BEDTIME MRX1 PRN PRN Reason: Insomnia Trazodone HCl (Trazodone Hcl 50 Mg Tablet) 50 mg PO BEDTIME MRX1 PRN PRN Reason: Insomnia Allergies Allergies Allergy/AdvReac Type Severity Reaction Status Date / Time No Known Allergies Allergy Verified 03/13/23 10:59 Assessment & Plan Assessment & Plan (1) MDD (major depressive disorder), recurrent episode, moderate: Status: Acute Code(s): F33.1 - Major depressive disorder, recurrent, moderate Assessment and Plan: Continue current plan of care and regime Discharge planning. (2) Alcohol use disorder, severe, dependence: Status: Acute Code(s): F10.20 - Alcohol dependence, uncomplicated Assessment and Plan: Referral to [facility] 6 week in pt program. 06/27/23: CIWA and Lorazepam discontinued Plan [age] year gentleman background systolic heart failure. He has background of alcoholism and nonischemic cardiomyopathy. He had angiogram before by his report and was told that he does not have any coronary disease. He has no anginal chest discomfort currently. Does not look significantly volume overloaded. I think he should stay on his home medications including carvedilol, Lasix daily 40 mg and losartan. Blood pressure is high then losartan can be titrated to a target blood pressure less than 130/80. 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 Thank you for allowing me to participate in the care of your patient. Please feel free to contact me if you have any questions. Plan 06/24 lower Prilosec keep rest the same 06/25 keep same treatment 06/26/23 [facility] Increase Sertraline to 50 mg daily Gabapentin 100 mg 9am 3pm to trial to address anxiety. 06/28/23 Continue current regime and plan. TDN to 06/29. Pt undecided about retracting this. 06/29/23 TDN retracted DC Sertraline Lexapro 20 mg daily Abilify 2 mg daily 06/30/23 Continue current regime and plan of care. 07/01/23 Continue treatment plan 07/02/23 continue treatment plan 07/03/23 Increase Abilify to 5 mg a.m. Wellbutrin 75 mg a.m. 07/05/23 Team has referred pt to [facility] Continue current regime TDN filed. Patient educated on: therapeutic strategies Informed Consent: understands Reason for continued inpatient stay Substantial Risk for: rapid decompensation Time Spent With Patient Time: Total time managing care of this patient today ____ minutes.
[2023-07-05 17:30] LABS: Glucose, Whole Blood 233 mg/dL (60-115)
[2023-07-05 18:00] VITALS: BP 132/72; PULSE 84; RESP 18; TEMP 36.2; O2SAT 93
[2023-07-05 20:38] LABS: Glucose, Whole Blood 261 mg/dL (60-115)
[2023-07-05 22:00] VITALS: BP 130/74; PULSE 80
[2023-07-05] MEDS: Gabapentin 300 MG CAPSULE PO (22:01)
[2023-07-05] MEDS: Atorvastatin Calcium 40 MG TABLET PO (22:01)
[2023-07-05] MEDS: Melatonin 3 MG TABLET 6 MG PO ×2 (22:07)
[2023-07-06] VITALS: RESP 18
[2023-07-06 06:00] VITALS: BP 109/53; PULSE 82; RESP 16; TEMP 35.6; O2SAT 91
[2023-07-06 08:40] LABS: Glucose, Whole Blood 245 mg/dL (60-115)
[2023-07-06] MEDS: Multivitamin TABLET 1 TAB PO (08:49)
[2023-07-06] MEDS: Losartan Potassium 25 MG TABLET PO (08:49)
[2023-07-06] MEDS: carvediloL 12.5 MG TABLET PO ×2 (08:49→22:24)
[2023-07-06] MEDS: Folic Acid 1 MG TABLET PO (08:49)
[2023-07-06] MEDS: Cyanocobalamin (Vitamin B-12) 500 MCG TABLET PO (08:49)
[2023-07-06] MEDS: Escitalopram Oxalate 20 MG TABLET PO (08:49)
[2023-07-06] MEDS: buPROPion HCL 75 MG TABLET PO (08:49)
[2023-07-06] MEDS: Potassium Chloride ER 10 MEQ TABLET.ER PO (08:49)
[2023-07-06] MEDS: Omeprazole 20 MG CAPSULE.DR PO (08:49)
[2023-07-06] MEDS: metFORMIN HCl 500 MG TABLET PO ×2 (08:50→22:25)
[2023-07-06] MEDS: Furosemide 40 MG TABLET PO (08:50)
[2023-07-06] MEDS: Gabapentin 100 MG CAPSULE PO ×2 (08:50→14:06)
[2023-07-06] MEDS: ARIPiprazole 5 MG TABLET PO (08:50)
[2023-07-06] MEDS: Insulin Lispro 100 UNIT/ML 3 ML VIAL SUBCUT ×4 (08:52→22:19)
[2023-07-06 11:54] LABS: Glucose, Whole Blood 285 mg/dL (60-115)
[2023-07-06] MEDS: Albuterol Sulfate 90 MCG 8 GM INHALER 1 PUFF INHALE (12:50)
--- NOTE | 2023-07-06 15:42 | P.PNPSI_ITS ---
Subjective Subjective Date of Service: 07/06/23 Reason For Visit: Recurrent major depression, alcohol use disorder Subjective Notes: Conditional Voluntary and 3 Day Healthcare Proxy: No Guardianship: No Medical Problems Affecting Mental Status: No Interim History: [facility]. Pt has a TDN in for 07/10. [facility] is also attempting to contact the [facility] as [facility]. Met with pt. Review of meds-he is experiencing some relief on this combination. Discussed relapse prevention. Identified trolley coach driver, Elli Brown, Mckayla Espinal as resources. Discussed his view that there are 2 kinds of people, leaders and followers. He finds himself to be neither. Discussed this in terms of his depression and higher relapse risk when isolated. Review of medical risks of relapse and what issues we saw when he was admitted this last time. He understands, agrees. He agreed that he would seek assistance if he relapses again early in the process. He denies SI. He has reconnected with his brother today, found their discussion to be helpful and brother's positive feedback to him more of an inspiration. Discussed Naltrexone, which he will begin. Medication Compliance: Yes Side effects from medications: No Attending Groups: Yes Review of Systems Acute medical concerns: No Medical Review of Systems: unchanged Mental Status Exam Mental Status Exam Patient Appearance: Appropriate Patient Orientation: Person, Place, Time and Situation Level of Consciousness: Alert Patient Behavior: Appropriate, Talkative, Cooperative and Good Eye Contact Mood Description: Constricted Affect Description: Constricted Patient Cognition Impaired: No Ability to Follow Directions: Good Speech Pattern: Spontaneous Speech Memory Description: Intact Hallucinations: None Delusions: Not Present Thought Process: Intact and Goal Oriented Thought Content: positive for Circumstantial and positive for Goal Oriented Depressive Symptoms: Increased Irritability, Increased Fatigue, Thoughts of /Suicide (denies) and Loss of Energy Judgement: Fair Diagnostics Vital Signs (24Hr): Vital Signs - 24 hr 07/05/23 18:00 07/05/23 22:00 07/06/23 00:00 Temperature 97.1 F Pulse Rate 84 80 Respiratory Rate 18 18 Blood Pressure 132/72 130/74 Pulse Oximetry 93 Oxygen Delivery Method Room Air 07/06/23 06:00 Temperature 96.1 F L Pulse Rate 82 Respiratory Rate 16 Blood Pressure 109/53 L Pulse Oximetry 91 L Oxygen Delivery Method Room Air BMI result Body Mass Index 59.9 Labs 06/20/23 06:28 07/04/23 08:20 Labs: Laboratory Results - last 48 hr 07/04/23 07/04/23 07/05/23 16:41 19:37 07:52 POC Glucose 223 H 256 H 204 H 07/05/23 07/05/23 07/05/23 12:17 17:26 20:34 POC Glucose 248 H 233 H 261 H 07/06/23 07/06/23 08:34 11:50 POC Glucose 245 H 285 H Imaging Radiology Impressions: ITS Impressions Chest X-Ray 06/21/23 07:57 IMPRESSION: No acute cardiopulmonary process. Medications Medications Current Medications Acetaminophen (Acetaminophen 325 Mg Tablet) 650 mg PO Q6H PRN PRN Reason: Headache/Pain Mild Scale (1-3) Al Hydroxide/Mg Hydroxide (Magnesium Hydrox/Alum Hydrox 30 Ml Oral.Susp) 30 ml PO Q6H PRN PRN Reason: Heartburn/Nausea Last Admin: 07/03/23 08:34 Dose: 30 ml Albuterol Sulfate (Albuterol Sulfate 90 Mcg 8 Gm Inhaler) 1 puff INHALE RQ4H PRN PRN Reason: Shortness Of Breath Last Admin: 07/06/23 12:50 Dose: 1 puff Aripiprazole (Aripiprazole 5 Mg Tablet) 5 mg PO DAILY [facility] Last Admin: 07/06/23 08:50 Dose: 5 mg Atorvastatin Calcium (Atorvastatin Calcium 40 Mg Tablet) 40 mg PO BEDTIME TOBY Last Admin: 07/05/23 22:01 Dose: 40 mg Bupropion HCl (Bupropion Hcl 75 Mg Tablet) 75 mg PO DAILY [facility] Last Admin: 07/06/23 08:49 Dose: 75 mg Carvedilol (Carvedilol 12.5 Mg Tablet) 12.5 mg PO BID [facility]; Protocol Last Admin: 07/06/23 08:49 Dose: 12.5 mg Cyanocobalamin (Cyanocobalamin (Vitamin B-12) 500 Mcg Tablet) 500 mcg PO DAILY [facility] Last Admin: 07/06/23 08:49 Dose: 500 mcg Dextrose (Dextrose 50 % 25 Gm/50 Ml Syringe) 25 gm IVPUSH Q15M PRN; Protocol PRN Reason: per Hypoglycemia Standing Ord. Dextrose (Dextrose 50 % 25 Gm/50 Ml Syringe) 25 gm IVPUSH Q15M PRN; Protocol PRN Reason: per Hypoglycemia Standing Ord. Escitalopram Oxalate (Escitalopram Oxalate 20 Mg Tablet) 20 mg PO DAILY [facility] Last Admin: 07/06/23 08:49 Dose: 20 mg Folic Acid (Folic Acid 1 Mg Tablet) 1 mg PO DAILY [facility] Last Admin: 07/06/23 08:49 Dose: 1 mg Furosemide (Furosemide 40 Mg Tablet) 40 mg PO DAILY [facility]; Protocol Last Admin: 07/06/23 08:50 Dose: 40 mg Gabapentin (Gabapentin 300 Mg Capsule) 300 mg PO BEDTIME [facility] Last Admin: 07/05/23 22:01 Dose: 300 mg Gabapentin (Gabapentin 100 Mg Capsule) 100 mg PO 0900,1500 [facility] Last Admin: 07/06/23 14:06 Dose: 100 mg Glucose (Glucose Gel 15 Gm Gel..Gram.) 15 gm PO Q15M PRN; Protocol PRN Reason: per Hypoglycemia Standing Ord. Glucose (Glucose Gel 15 Gm Gel..Gram.) 15 gm PO Q15M PRN; Protocol PRN Reason: per Hypoglycemia Standing Ord. Hydroxyzine HCl (Hydroxyzine Hcl 50 Mg Tablet) 50 mg PO BID PRN PRN Reason: anxiety Last Admin: 06/27/23 20:25 Dose: 50 mg Hydroxyzine HCl (Hydroxyzine Hcl 25 Mg Tablet) 25 mg PO Q6H PRN PRN Reason: Anxiety Ibuprofen (Ibuprofen 600 Mg Tablet) 600 mg PO TIDWM PRN PRN Reason: Pain, Moderate(Pain Scale 4-6) Insulin Human Lispro (Insulin Lispro 100 Unit/Ml 3 Ml Vial) 0 unit SUBCUT QIDACHS [facility]; Protocol Last Admin: 07/06/23 11:58 Dose: 6 unit Losartan Potassium (Losartan Potassium 25 Mg Tablet) 25 mg PO DAILY [facility]; Protocol Last Admin: 07/06/23 08:49 Dose: 25 mg Magnesium Hydroxide (Milk Of Magnesia 30 Ml Oral.Susp) 30 ml PO DAILY PRN PRN Reason: Constipation Melatonin (Melatonin 3 Mg Tablet) 6 mg PO BEDTIME PRN PRN Reason: Insomnia Last Admin: 07/05/23 22:07 Dose: 6 mg Metformin HCl (Metformin Hcl 500 Mg Tablet) 500 mg PO BID [facility] Last Admin: 07/06/23 08:50 Dose: 500 mg Multivitamins/Vitamin C (Multivitamin Tablet) 1 tab PO DAILY [facility] Last Admin: 07/06/23 08:49 Dose: 1 tab Omeprazole (Omeprazole 20 Mg Capsule.Dr) 20 mg PO DAILY@0630 [facility] Last Admin: 07/06/23 08:49 Dose: 20 mg Potassium Chloride (Potassium Chloride Er 10 Meq Tablet.Er) 10 meq PO DAILY [facility] Last Admin: 07/06/23 08:49 Dose: 10 meq Trazodone HCl (Trazodone Hcl 50 Mg Tablet) 50 mg PO BEDTIME MRX1 PRN PRN Reason: Insomnia Trazodone HCl (Trazodone Hcl 50 Mg Tablet) 50 mg PO BEDTIME MRX1 PRN PRN Reason: Insomnia Allergies Allergies Allergy/AdvReac Type Severity Reaction Status Date / Time No Known Allergies Allergy Verified 03/13/23 10:59 Assessment & Plan Assessment & Plan (1) MDD (major depressive disorder), recurrent episode, moderate: Status: Acute Code(s): F33.1 - Major depressive disorder, recurrent, moderate Assessment and Plan: Continue current plan of care and regime Discharge planning. (2) Alcohol use disorder, severe, dependence: Status: Acute Code(s): F10.20 - Alcohol dependence, uncomplicated Assessment and Plan: Referral to [facility] 6 week in pt program. 06/27/23: CIWA and Lorazepam discontinued Plan [age] year gentleman background systolic heart failure. He has background of alcoholism and nonischemic cardiomyopathy. He had angiogram before by his report and was told that he does not have any coronary disease. He has no anginal chest discomfort currently. Does not look significantly volume overloaded. I think he should stay on his home medications including carvedilol, Lasix daily 40 mg and losartan. Blood pressure is high then losartan can be titrated to a target blood pressure less than 130/80. He has a quality assurance tester and has been following up with him and should continue to follow with his primary quality assurance tester. Thank you for allowing me to participate in the care of your patient. Please feel free to contact me if you have any questions. Plan 06/24 lower Prilosec keep rest the same 06/25 keep same treatment 06/26/23 Team working on [facility] 6 week program transfer Increase Sertraline to 50 mg daily Gabapentin 100 mg 9am 3pm to trial to address anxiety. 06/28/23 Continue current regime and plan. TDN to 06/29. Pt undecided about retracting this. 06/29/23 TDN retracted DC Sertraline Lexapro 20 mg daily Abilify 2 mg daily 06/30/23 Continue current regime and plan of care. 07/01/23 Continue treatment plan 07/02/23 continue treatment plan 07/03/23 Increase Abilify to 5 mg a.m. Wellbutrin 75 mg a.m. 07/05/23 Team has referred pt [facility] Continue current regime TDN filed. 07/06/23 Naltrexone 50 mg daily Discharge planning, TDN 07/10. Patient educated on: medication risk/benefits, substance abuse, therapeutic strategies and medical condition Informed Consent: understands Reason for continued inpatient stay Substantial Risk for: med/psych decompensation Time Spent With Patient Time: Total time managing care of this patient today ____ minutes.
[2023-07-06 17:52] LABS: Glucose, Whole Blood 304 mg/dL (60-115)
[2023-07-06 21:55] LABS: Glucose, Whole Blood 259 mg/dL (60-115)
[2023-07-06 22:15] VITALS: BP 110/56; PULSE 89; TEMP 36.7
[2023-07-06] MEDS: Atorvastatin Calcium 40 MG TABLET PO (22:25)
[2023-07-06] MEDS: Gabapentin 300 MG CAPSULE PO (22:26)
[2023-07-06] MEDS: Melatonin 3 MG TABLET 6 MG PO (22:26)
[2023-07-07 06:00] VITALS: BP 140/80; PULSE 82; RESP 16; TEMP 36.6; O2SAT 94
[2023-07-07 08:47] LABS: Glucose, Whole Blood 244 mg/dL (60-115)
[2023-07-07] MEDS: Insulin Lispro 100 UNIT/ML 3 ML VIAL SUBCUT ×4 (08:54→22:02)
[2023-07-07] MEDS: Cyanocobalamin (Vitamin B-12) 500 MCG TABLET PO (08:55)
[2023-07-07] MEDS: buPROPion HCL 75 MG TABLET PO (08:55)
[2023-07-07] MEDS: metFORMIN HCl 500 MG TABLET PO ×2 (08:55→22:02)
[2023-07-07] MEDS: Losartan Potassium 25 MG TABLET PO (08:55)
[2023-07-07] MEDS: Folic Acid 1 MG TABLET PO (08:55)
[2023-07-07] MEDS: Escitalopram Oxalate 20 MG TABLET PO (08:55)
[2023-07-07] MEDS: Multivitamin TABLET 1 TAB PO (08:55)
[2023-07-07] MEDS: Potassium Chloride ER 10 MEQ TABLET.ER PO (08:55)
[2023-07-07] MEDS: carvediloL 12.5 MG TABLET PO ×2 (08:55→22:02)
[2023-07-07] MEDS: Furosemide 40 MG TABLET PO (08:55)
[2023-07-07] MEDS: Magnesium Hydrox/Alum Hydrox 30 ML ORAL.SUSP PO (08:55)
[2023-07-07] MEDS: ARIPiprazole 5 MG TABLET PO (08:56)
[2023-07-07] MEDS: Gabapentin 100 MG CAPSULE PO ×2 (08:56→14:07)
[2023-07-07] MEDS: Omeprazole 20 MG CAPSULE.DR PO (08:56)
[2023-07-07] MEDS: Naltrexone HCl 50 MG TABLET PO (08:56)
--- NOTE | 2023-07-07 10:23 | HO.PSYCHPN ---
Subjective Subjective Date of Service: 07/07/23 Reason For Visit: Recurrent major depression, alcohol use disorder Subjective Notes: Conditional Voluntary and 3 Day Healthcare Proxy: No Guardianship: No Medical Problems Affecting Mental Status: No Interim History: TDN to 07/09. Plans to [facility] will try to connect with pt before discharge on 07/10. Pt reports no adverse effects from regime. Will continue current regime over the weekend. Labs ordered for 07/08. Medication Compliance: Yes Side effects from medications: No Attending Groups: Yes Review of Systems Acute medical concerns: No Medical Review of Systems: unchanged Mental Status Exam Mental Status Exam Patient Appearance: Appropriate Patient Orientation: Person, Place, Time and Situation Level of Consciousness: Alert Patient Behavior: Appropriate, Talkative, Cooperative and Good Eye Contact Mood Description: Constricted Affect Description: Constricted Patient Cognition Impaired: No Ability to Follow Directions: Good Speech Pattern: Spontaneous Speech Memory Description: Intact Hallucinations: None Delusions: Not Present Thought Process: Intact and Goal Oriented Thought Content: positive for Circumstantial and positive for Goal Oriented Depressive Symptoms: Increased Irritability, Increased Fatigue, Thoughts of /Suicide (denies) and Loss of Energy Judgement: Fair Diagnostics Vital Signs (24Hr): Vital Signs - 24 hr 07/06/23 22:15 07/07/23 06:00 Temperature 98.0 F 97.9 F Pulse Rate 89 82 Respiratory Rate 16 Blood Pressure 110/56 L 140/80 H Pulse Oximetry 94 Oxygen Delivery Method Room Air BMI result Body Mass Index 59.9 Labs 06/20/23 06:28 07/04/23 08:20 Labs: Laboratory Results - last 48 hr 07/05/23 07/05/23 07/05/23 12:17 17:26 20:34 POC Glucose 248 H 233 H 261 H 07/06/23 07/06/23 07/06/23 08:34 11:50 17:13 POC Glucose 245 H 285 H 304 H 07/06/23 07/07/23 21:50 08:43 POC Glucose 259 H 244 H Imaging Radiology Impressions: ITS Impressions Chest X-Ray 06/21/23 07:57 IMPRESSION: No acute cardiopulmonary process. Medications Medications Current Medications Acetaminophen (Acetaminophen 325 Mg Tablet) 650 mg PO Q6H PRN PRN Reason: Headache/Pain Mild Scale (1-3) Al Hydroxide/Mg Hydroxide (Magnesium Hydrox/Alum Hydrox 30 Ml Oral.Susp) 30 ml PO Q6H PRN PRN Reason: Heartburn/Nausea Last Admin: 07/07/23 08:55 Dose: 30 ml Albuterol Sulfate (Albuterol Sulfate 90 Mcg 8 Gm Inhaler) 1 puff INHALE RQ4H PRN PRN Reason: Shortness Of Breath Last Admin: 07/06/23 12:50 Dose: 1 puff Aripiprazole (Aripiprazole 5 Mg Tablet) 5 mg PO DAILY [facility] Last Admin: 07/07/23 08:56 Dose: 5 mg Atorvastatin Calcium (Atorvastatin Calcium 40 Mg Tablet) 40 mg PO BEDTIME TOBY Last Admin: 07/06/23 22:25 Dose: 40 mg Bupropion HCl (Bupropion Hcl 75 Mg Tablet) 75 mg PO DAILY [facility] Last Admin: 07/07/23 08:55 Dose: 75 mg Carvedilol (Carvedilol 12.5 Mg Tablet) 12.5 mg PO BID [facility]; Protocol Last Admin: 07/07/23 08:55 Dose: 12.5 mg Cyanocobalamin (Cyanocobalamin (Vitamin B-12) 500 Mcg Tablet) 500 mcg PO DAILY [facility] Last Admin: 07/07/23 08:55 Dose: 500 mcg Dextrose (Dextrose 50 % 25 Gm/50 Ml Syringe) 25 gm IVPUSH Q15M PRN; Protocol PRN Reason: per Hypoglycemia Standing Ord. Dextrose (Dextrose 50 % 25 Gm/50 Ml Syringe) 25 gm IVPUSH Q15M PRN; Protocol PRN Reason: per Hypoglycemia Standing Ord. Escitalopram Oxalate (Escitalopram Oxalate 20 Mg Tablet) 20 mg PO DAILY [facility] Last Admin: 07/07/23 08:55 Dose: 20 mg Folic Acid (Folic Acid 1 Mg Tablet) 1 mg PO DAILY [facility] Last Admin: 07/07/23 08:55 Dose: 1 mg Furosemide (Furosemide 40 Mg Tablet) 40 mg PO DAILY [facility]; Protocol Last Admin: 07/07/23 08:55 Dose: 40 mg Gabapentin (Gabapentin 300 Mg Capsule) 300 mg PO BEDTIME TOBY Last Admin: 07/06/23 22:26 Dose: 300 mg Gabapentin (Gabapentin 100 Mg Capsule) 100 mg PO 0900,1500 TOBY Last Admin: 07/07/23 08:56 Dose: 100 mg Glucose (Glucose Gel 15 Gm Gel..Gram.) 15 gm PO Q15M PRN; Protocol PRN Reason: per Hypoglycemia Standing Ord. Glucose (Glucose Gel 15 Gm Gel..Gram.) 15 gm PO Q15M PRN; Protocol PRN Reason: per Hypoglycemia Standing Ord. Hydroxyzine HCl (Hydroxyzine Hcl 50 Mg Tablet) 50 mg PO BID PRN PRN Reason: anxiety Last Admin: 06/27/23 20:25 Dose: 50 mg Hydroxyzine HCl (Hydroxyzine Hcl 25 Mg Tablet) 25 mg PO Q6H PRN PRN Reason: Anxiety Ibuprofen (Ibuprofen 600 Mg Tablet) 600 mg PO TIDWM PRN PRN Reason: Pain, Moderate(Pain Scale 4-6) Insulin Human Lispro (Insulin Lispro 100 Unit/Ml 3 Ml Vial) 0 unit SUBCUT QIDACHS [facility]; Protocol Last Admin: 07/07/23 08:54 Dose: 4 unit Losartan Potassium (Losartan Potassium 25 Mg Tablet) 25 mg PO DAILY [facility]; Protocol Last Admin: 07/07/23 08:55 Dose: 25 mg Magnesium Hydroxide (Milk Of Magnesia 30 Ml Oral.Susp) 30 ml PO DAILY PRN PRN Reason: Constipation Melatonin (Melatonin 3 Mg Tablet) 6 mg PO BEDTIME PRN PRN Reason: Insomnia Last Admin: 07/06/23 22:26 Dose: 6 mg Metformin HCl (Metformin Hcl 500 Mg Tablet) 500 mg PO BID [facility] Last Admin: 07/07/23 08:55 Dose: 500 mg Multivitamins/Vitamin C (Multivitamin Tablet) 1 tab PO DAILY [facility] Last Admin: 07/07/23 08:55 Dose: 1 tab Naltrexone HCl (Naltrexone Hcl 50 Mg Tablet) 50 mg PO DAILY [facility] Last Admin: 07/07/23 08:56 Dose: 50 mg Omeprazole (Omeprazole 20 Mg Capsule.Dr) 20 mg PO DAILY@0630 [facility] Last Admin: 07/07/23 08:56 Dose: 20 mg Potassium Chloride (Potassium Chloride Er 10 Meq Tablet.Er) 10 meq PO DAILY [facility] Last Admin: 07/07/23 08:55 Dose: 10 meq Trazodone HCl (Trazodone Hcl 50 Mg Tablet) 50 mg PO BEDTIME MRX1 PRN PRN Reason: Insomnia Trazodone HCl (Trazodone Hcl 50 Mg Tablet) 50 mg PO BEDTIME MRX1 PRN PRN Reason: Insomnia Allergies Allergies Allergy/AdvReac Type Severity Reaction Status Date / Time No Known Allergies Allergy Verified 03/13/23 10:59 Assessment & Plan Assessment & Plan (1) MDD (major depressive disorder), recurrent episode, moderate: Status: Acute Code(s): F33.1 - Major depressive disorder, recurrent, moderate Assessment and Plan: Continue current plan of care and regime Discharge planning. (2) Alcohol use disorder, severe, dependence: Status: Acute Code(s): F10.20 - Alcohol dependence, uncomplicated Assessment and Plan: Referral to [place] 6 week in pt program. 06/27/23: CIWA and Lorazepam discontinued Plan [age] year gentleman background systolic heart failure. He has background of alcoholism and nonischemic cardiomyopathy. He had angiogram before by his report and was told that he does not have any coronary disease. He has no anginal chest discomfort currently. Does not look significantly volume overloaded. I think he should stay on his home medications including carvedilol, Lasix daily 40 mg and losartan. Blood pressure is high then losartan can be titrated to a target blood pressure less than 130/80. He has a machine bander and cellophaner and has been following up with him and should continue to follow with his primary machine bander and cellophaner. Thank you for allowing me to participate in the care of your patient. Please feel free to contact me if you have any questions. Plan 06/24 lower Prilosec keep rest the same 06/25 keep same treatment 06/26/23 Team working on [place] 6 week program transfer Increase Sertraline to 50 mg daily Gabapentin 100 mg 9am 3pm to trial to address anxiety. 06/28/23 Continue current regime and plan. TDN to 06/29. Pt undecided about retracting this. 06/29/23 TDN retracted DC Sertraline Lexapro 20 mg daily Abilify 2 mg daily 06/30/23 Continue current regime and plan of care. 07/01/23 Continue treatment plan 07/02/23 continue treatment plan 07/03/23 Increase Abilify to 5 mg a.m. Wellbutrin 75 mg a.m. 07/05/23 Team has referred pt to [facility] as the [facility] has not called him back Continue current regime TDN filed. 07/06/23 Naltrexone 50 mg daily Discharge planning, TDN 07/10. 07/07/23 TDN expires 07/10 Plans [facility] states they will offer the 6 week program in addition. Informed Consent: understands Reason for continued inpatient stay Substantial Risk for: med/psych decompensation Time Spent With Patient Time: Total time managing care of this patient today ____ minutes.
[2023-07-07 11:56] LABS: Glucose, Whole Blood 258 mg/dL (60-115)
[2023-07-07 17:36] LABS: Glucose, Whole Blood 240 mg/dL (60-115)
[2023-07-07 21:45] LABS: Glucose, Whole Blood 228 mg/dL (60-115)
[2023-07-07 21:54] VITALS: BP 133/84; PULSE 84; RESP 18; TEMP 36.1; O2SAT 92
[2023-07-07] MEDS: Atorvastatin Calcium 40 MG TABLET PO (22:02)
[2023-07-07] MEDS: Gabapentin 300 MG CAPSULE PO (22:02)
[2023-07-07] MEDS: Melatonin 3 MG TABLET 6 MG PO (22:02)
[2023-07-07] MEDS: Albuterol Sulfate 90 MCG 8 GM INHALER 1 PUFF INHALE (22:44)
[2023-07-08 08:39] LABS: Glucose, Whole Blood 256 mg/dL (60-115)
[2023-07-08] MEDS: Insulin Lispro 100 UNIT/ML 3 ML VIAL SUBCUT ×4 (08:59→22:39)
[2023-07-08 09:00] VITALS: BP 129/66; PULSE 82; RESP 18; TEMP 36.3; O2SAT 93
[2023-07-08] MEDS: Gabapentin 100 MG CAPSULE PO ×2 (09:00→13:56)
[2023-07-08] MEDS: Multivitamin TABLET 1 TAB PO (09:00)
[2023-07-08] MEDS: Escitalopram Oxalate 20 MG TABLET PO (09:00)
[2023-07-08] MEDS: Folic Acid 1 MG TABLET PO (09:00)
[2023-07-08] MEDS: carvediloL 12.5 MG TABLET PO ×2 (09:00→22:30)
[2023-07-08] MEDS: Losartan Potassium 25 MG TABLET PO (09:01)
[2023-07-08] MEDS: Omeprazole 20 MG CAPSULE.DR PO (09:01)
[2023-07-08] MEDS: Potassium Chloride ER 10 MEQ TABLET.ER PO (09:01)
[2023-07-08] MEDS: buPROPion HCL 75 MG TABLET PO (09:01)
[2023-07-08] MEDS: Furosemide 40 MG TABLET PO (09:01)
[2023-07-08] MEDS: ARIPiprazole 5 MG TABLET PO (09:01)
[2023-07-08] MEDS: metFORMIN HCl 500 MG TABLET PO ×2 (09:01→22:30)
[2023-07-08] MEDS: Naltrexone HCl 50 MG TABLET PO (09:01)
[2023-07-08] MEDS: Cyanocobalamin (Vitamin B-12) 500 MCG TABLET PO (09:35)
--- NOTE | 2023-07-08 13:31 | P.PNPSI_ITS ---
Subjective Subjective Date of Service: 07/08/23 Reason For Visit: Recurrent major depression, alcohol use disorder Subjective Notes: 3 Day Medical Problems Affecting Mental Status: No Interim History: Met with patient. Discussed with Nursing. Chart reviewed. Noted overall stable and plan for discharge on Monday to [facility] program. Patient declined to engage with advertising copy writer today stating they would talk tomorrow. Medication Compliance: Yes Side effects from medications: No Attending Groups: Yes Review of Systems Acute medical concerns: No Review of Systems Review of Systems Nothing acute noted Yes Unobtainable due to mental status Mental Status Exam Mental Status Exam Narrative: pleasant. Hospital clothing. In day area. Eating lunch. Engaging with peers. Otherwise preferred not to engage with advertising copy writer today. Diagnostics Vital Signs (24Hr): Vital Signs - 24 hr 07/07/23 21:54 07/08/23 09:00 Temperature 96.9 F 97.3 F Pulse Rate 84 82 Respiratory Rate 18 18 Blood Pressure 133/84 129/66 Pulse Oximetry 92 93 Oxygen Delivery Method Room Air Room Air BMI result Body Mass Index 59.9 Labs 06/20/23 06:28 07/04/23 08:20 Labs: Laboratory Results - last 48 hr 07/06/23 07/06/23 07/07/23 17:13 21:50 08:43 POC Glucose 304 H 259 H 244 H 07/07/23 07/07/23 07/07/23 11:53 17:32 21:41 POC Glucose 258 H 240 H 228 H 07/08/23 08:36 POC Glucose 256 H Imaging Radiology Impressions: ITS Impressions Chest X-Ray 06/21/23 07:57 IMPRESSION: No acute cardiopulmonary process. Medications Medications Current Medications Acetaminophen (Acetaminophen 325 Mg Tablet) 650 mg PO Q6H PRN PRN Reason: Headache/Pain Mild Scale (1-3) Al Hydroxide/Mg Hydroxide (Magnesium Hydrox/Alum Hydrox 30 Ml Oral.Susp) 30 ml PO Q6H PRN PRN Reason: Heartburn/Nausea Last Admin: 07/07/23 08:55 Dose: 30 ml Albuterol Sulfate (Albuterol Sulfate 90 Mcg 8 Gm Inhaler) 1 puff INHALE RQ4H PRN PRN Reason: Shortness Of Breath Last Admin: 07/07/23 22:44 Dose: 1 puff Aripiprazole (Aripiprazole 5 Mg Tablet) 5 mg PO DAILY [facility] Last Admin: 07/08/23 09:01 Dose: 5 mg Atorvastatin Calcium (Atorvastatin Calcium 40 Mg Tablet) 40 mg PO BEDTIME [facility] Last Admin: 07/07/23 22:02 Dose: 40 mg Bupropion HCl (Bupropion Hcl 75 Mg Tablet) 75 mg PO DAILY [facility] Last Admin: 07/08/23 09:01 Dose: 75 mg Carvedilol (Carvedilol 12.5 Mg Tablet) 12.5 mg PO BID [facility]; Protocol Last Admin: 07/08/23 09:00 Dose: 12.5 mg Cyanocobalamin (Cyanocobalamin (Vitamin B-12) 500 Mcg Tablet) 500 mcg PO DAILY [facility] Last Admin: 07/08/23 09:35 Dose: 500 mcg Dextrose (Dextrose 50 % 25 Gm/50 Ml Syringe) 25 gm IVPUSH Q15M PRN; Protocol PRN Reason: per Hypoglycemia Standing Ord. Dextrose (Dextrose 50 % 25 Gm/50 Ml Syringe) 25 gm IVPUSH Q15M PRN; Protocol PRN Reason: per Hypoglycemia Standing Ord. Escitalopram Oxalate (Escitalopram Oxalate 20 Mg Tablet) 20 mg PO DAILY [facility] Last Admin: 07/08/23 09:00 Dose: 20 mg Folic Acid (Folic Acid 1 Mg Tablet) 1 mg PO DAILY [facility] Last Admin: 07/08/23 09:00 Dose: 1 mg Furosemide (Furosemide 40 Mg Tablet) 40 mg PO DAILY [facility]; Protocol Last Admin: 07/08/23 09:01 Dose: 40 mg Gabapentin (Gabapentin 300 Mg Capsule) 300 mg PO BEDTIME [facility] Last Admin: 07/07/23 22:02 Dose: 300 mg Gabapentin (Gabapentin 100 Mg Capsule) 100 mg PO 0900,1500 [facility] Last Admin: 07/08/23 09:00 Dose: 100 mg Glucose (Glucose Gel 15 Gm Gel..Gram.) 15 gm PO Q15M PRN; Protocol PRN Reason: per Hypoglycemia Standing Ord. Glucose (Glucose Gel 15 Gm Gel..Gram.) 15 gm PO Q15M PRN; Protocol PRN Reason: per Hypoglycemia Standing Ord. Hydroxyzine HCl (Hydroxyzine Hcl 50 Mg Tablet) 50 mg PO BID PRN PRN Reason: anxiety Last Admin: 06/27/23 20:25 Dose: 50 mg Hydroxyzine HCl (Hydroxyzine Hcl 25 Mg Tablet) 25 mg PO Q6H PRN PRN Reason: Anxiety Ibuprofen (Ibuprofen 600 Mg Tablet) 600 mg PO TIDWM PRN PRN Reason: Pain, Moderate(Pain Scale 4-6) Insulin Human Lispro (Insulin Lispro 100 Unit/Ml 3 Ml Vial) 0 unit SUBCUT QIDACHS [facility]; Protocol Last Admin: 07/08/23 08:59 Dose: 6 unit Losartan Potassium (Losartan Potassium 25 Mg Tablet) 25 mg PO DAILY [facility]; Protocol Last Admin: 07/08/23 09:01 Dose: 25 mg Magnesium Hydroxide (Milk Of Magnesia 30 Ml Oral.Susp) 30 ml PO DAILY PRN PRN Reason: Constipation Melatonin (Melatonin 3 Mg Tablet) 6 mg PO BEDTIME PRN PRN Reason: Insomnia Last Admin: 07/07/23 22:02 Dose: 6 mg Metformin HCl (Metformin Hcl 500 Mg Tablet) 500 mg PO BID [facility] Last Admin: 07/08/23 09:01 Dose: 500 mg Multivitamins/Vitamin C (Multivitamin Tablet) 1 tab PO DAILY [facility] Last Admin: 07/08/23 09:00 Dose: 1 tab Naltrexone HCl (Naltrexone Hcl 50 Mg Tablet) 50 mg PO DAILY [facility] Last Admin: 07/08/23 09:01 Dose: 50 mg Omeprazole (Omeprazole 20 Mg Capsule.Dr) 20 mg PO DAILY@0630 [facility] Last Admin: 07/08/23 09:01 Dose: 20 mg Potassium Chloride (Potassium Chloride Er 10 Meq Tablet.Er) 10 meq PO DAILY [facility] Last Admin: 07/08/23 09:01 Dose: 10 meq Trazodone HCl (Trazodone Hcl 50 Mg Tablet) 50 mg PO BEDTIME MRX1 PRN PRN Reason: Insomnia Trazodone HCl (Trazodone Hcl 50 Mg Tablet) 50 mg PO BEDTIME MRX1 PRN PRN Reason: Insomnia Allergies Allergies Allergy/AdvReac Type Severity Reaction Status Date / Time No Known Allergies Allergy Verified 03/13/23 10:59 Assessment & Plan Assessment & Plan (1) MDD (major depressive disorder), recurrent episode, moderate: Status: Acute Code(s): F33.1 - Major depressive disorder, recurrent, moderate Assessment and Plan: Continue current plan of care and regime Discharge planning. (2) Alcohol use disorder, severe, dependence: Status: Acute Code(s): F10.20 - Alcohol dependence, uncomplicated Assessment and Plan: Referral to [place] 6 week in pt program. 06/27/23: CIWA and Lorazepam discontinued Plan [age] year gentleman background systolic heart failure. He has background of alcoholism and nonischemic cardiomyopathy. He had angiogram before by his report and was told that he does not have any coronary disease. He has no anginal chest discomfort currently. Does not look significantly volume overloaded. I think he should stay on his home medications including carvedilol, Lasix daily 40 mg and losartan. Blood pressure is high then losartan can be titrated to a target blood pressure less than 130/80. 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 Thank you for allowing me to participate in the care of your patient. Please feel free to contact me if you have any questions. Plan 06/24 lower Prilosec keep rest the same 06/25 keep same treatment 06/26/23 Team working on [place] 6 week program transfer Increase Sertraline to 50 mg daily Gabapentin 100 mg 9am 3pm to trial to address anxiety. 06/28/23 Continue current regime and plan. TDN to 06/29. Pt undecided about retracting this. 06/29/23 TDN retracted DC Sertraline Lexapro 20 mg daily Abilify 2 mg daily 06/30/23 Continue current regime and plan of care. 07/01/23 Continue treatment plan 07/02/23 continue treatment plan 07/03/23 Increase Abilify to 5 mg a.m. Wellbutrin 75 mg a.m. 07/05/23 Team has referred pt to [facility] Continue current regime TDN filed. 07/06/23 Naltrexone 50 mg daily Discharge planning, TDN 07/10. 07/07/23 TDN expires 07/10 Plans [facility] states they will offer the 6 week program in addition. Reason for continued inpatient stay Substantial Risk for: med/psych decompensation Time Spent With Patient Time: Total time managing care of this patient today ____ minutes.
[2023-07-08 13:50] LABS: Glucose, Whole Blood 228 mg/dL (60-115)
[2023-07-08 14:43] LABS: MANUAL DIFF FLAG NO
[2023-07-08 14:50] LABS: Basophils Absolute Auto 0.1 X10*3/uL (0.0-0.2); Basophils Percent Auto 0.8 % (0-2); Eosinophils Absolute Auto 0.3 X10*3/uL (0.0-0.4); Eosinophils Percent Auto 2.6 % (0-4); Hematocrit 43.3 % (42.0-52.0); Hemoglobin 13.8 g/dl (14.0-18.0); Imm Gran Abs Auto 0.02 X10*3/uL (0.00-0.03); Imm Gran Pct Auto 0.2 % (0.0-0.4); Lymphocytes Absolute Auto 1.7 X10*3/uL (1.2-4.9); Mean Corpuscular HGB Conc 31.9 g/dl (31.0-36.0); Mean Corpuscular Hemoglobin 29.4 pg (27.0-33.0); Mean Corpuscular Volume 92.1 fL (80.0-98.0); Mean Platelet Volume 10.8 fL (9.4-12.4); Monocytes Absolute Auto 0.7 X10*3/uL (0.1-1.2); Monocytes Percent Auto 6.8 % (2-11); Neutrophils Absolute Auto 7.1 x10*3/uL (2.0-8.3); Neutrophils Percent Auto 72.6 % (45-73); Platelet Count 322 X10*3/uL (160-400); Red Cell Distribution Width 14.1 % (11.0-16.0); White Blood Count 9.7 X10*3/uL (4.8-10.8)
[2023-07-08 15:03] LABS: Alanine Aminotransferase 22 U/L (0-40); Alkaline Phosphatase 73 U/L (39-117); Anion Gap 16 (12-20); Aspartate Amino Transferase 19 U/L (5-37); Bilirubin Total 0.3 mg/dL (0.0-1.0); Blood Urea Nitrogen 10 mg/dL (9-16); Calcium 9.7 mg/dL (8.4-10.2); Carbon Dioxide 25 mmol/L (22-29); Chloride 100 mmol/L (96-108); Creatinine Clr Calc Pharmacy 213.7; Estimated Glomerular Filt Rate > 60; Glucose Random 202 mg/dL (60-115); Potassium 4.1 mmol/L (3.3-5.1); Sodium 137 mmol/L (135-145); Total Protein 8.2 g/dL (6.5-8.0)
[2023-07-08 15:06] LABS: Estimated Average Glucose 180 mg/dL; Hemoglobin A1c % 7.9 % (<6.0)
[2023-07-08 16:29] LABS: Glucose, Whole Blood 193 mg/dL (60-115)
[2023-07-08 19:30] VITALS: BP 118/68; PULSE 86; RESP 18; TEMP 36.2; O2SAT 95
[2023-07-08 22:21] LABS: Glucose, Whole Blood 274 mg/dL (60-115)
[2023-07-08] MEDS: Gabapentin 300 MG CAPSULE PO (22:30)
[2023-07-08] MEDS: Atorvastatin Calcium 40 MG TABLET PO (22:30)
[2023-07-09 01:31] VITALS: RESP 18
[2023-07-09 08:29] LABS: Glucose, Whole Blood 213 mg/dL (60-115)
[2023-07-09] MEDS: Insulin Lispro 100 UNIT/ML 3 ML VIAL SUBCUT ×4 (08:38→21:58)
[2023-07-09] MEDS: Omeprazole 20 MG CAPSULE.DR PO (08:39)
[2023-07-09] MEDS: metFORMIN HCl 500 MG TABLET PO ×2 (08:39→21:58)
[2023-07-09] MEDS: carvediloL 12.5 MG TABLET PO ×2 (08:39→21:58)
[2023-07-09] MEDS: Potassium Chloride ER 10 MEQ TABLET.ER PO (08:39)
[2023-07-09] MEDS: Cyanocobalamin (Vitamin B-12) 500 MCG TABLET PO (08:39)
[2023-07-09] MEDS: Escitalopram Oxalate 20 MG TABLET PO (08:39)
[2023-07-09] MEDS: buPROPion HCL 75 MG TABLET PO (08:39)
[2023-07-09] MEDS: ARIPiprazole 5 MG TABLET PO (08:39)
[2023-07-09] MEDS: Furosemide 40 MG TABLET PO (08:39)
[2023-07-09] MEDS: Multivitamin TABLET 1 TAB PO (08:39)
[2023-07-09] MEDS: Folic Acid 1 MG TABLET PO (08:39)
[2023-07-09] MEDS: Losartan Potassium 25 MG TABLET PO (08:39)
[2023-07-09] MEDS: Naltrexone HCl 50 MG TABLET PO (08:39)
[2023-07-09] MEDS: Gabapentin 100 MG CAPSULE PO ×2 (08:39→15:00)
[2023-07-09 08:45] VITALS: BP 131/82; PULSE 72; RESP 18; O2SAT 92
[2023-07-09 12:04] LABS: Glucose, Whole Blood 268 mg/dL (60-115)
--- NOTE | 2023-07-09 12:29 | P.PNPSI_ITS ---
Subjective Subjective Date of Service: 07/09/23 Reason For Visit: Recurrent major depression, alcohol use disorder Interim History: Met with patient. Discussed with Nursing. Overall no management issues. Looking forward to discharge to [facility]. Euthymic. No sleep issues. No medication concerns. Medication Compliance: Yes Side effects from medications: No Attending Groups: Yes Review of Systems Acute medical concerns: No Review of Systems Review of Systems Yes all other systems are reviewed and are negative Mental Status Exam Mental Status Exam Narrative: Pleasant. Engaged. Fairly presented. Euthymic. No SI, HI, psychosis. Insight and judgment fair Diagnostics Vital Signs (24Hr): Vital Signs - 24 hr 07/08/23 19:30 07/09/23 01:31 07/09/23 08:45 Temperature 97.2 F Pulse Rate 86 72 Respiratory Rate 18 18 18 Blood Pressure 118/68 131/82 Pulse Oximetry 95 92 Oxygen Delivery Method Room Air Room Air BMI result Body Mass Index 59.9 Labs 07/08/23 14:31 07/08/23 14:31 Labs: Laboratory Results - last 48 hr 07/07/23 07/07/23 07/08/23 17:32 21:41 08:36 WBC RBC Hgb Hct MCV MCH MCHC RDW Plt Count MPV Immature Gran % (Auto) Neut % (Auto) Lymph % (Auto) Mora % (Auto) Eos % (Auto) Baso % (Auto) Lymph # (Auto) Mora # (Auto) Eos # (Auto) Baso # (Auto) Abs Immat Gran (auto) Absolute Neuts (auto) Absolute Nucleated RBC Nucleated RBC % (auto) Sodium Potassium Chloride Carbon Dioxide Anion Gap BUN Creatinine Estim Creat Clear Calc Estimated GFR POC Glucose 240 H 228 H 256 H Random Glucose Estimat Average Glucose Hemoglobin A1c % Calcium Total Bilirubin AST ALT Alkaline Phosphatase Total Protein Albumin 07/08/23 07/08/23 07/08/23 13:47 14:31 14:31 WBC 9.7 RBC 4.70 Hgb 13.8 L Hct 43.3 MCV 92.1 MCH 29.4 MCHC 31.9 RDW 14.1 Plt Count 322 D MPV 10.8 Immature Gran % (Auto) 0.2 Neut % (Auto) 72.6 Lymph % (Auto) 17.0 L Mora % (Auto) 6.8 Eos % (Auto) 2.6 Baso % (Auto) 0.8 Lymph # (Auto) 1.7 Mora # (Auto) 0.7 Eos # (Auto) 0.3 Baso # (Auto) 0.1 Abs Immat Gran (auto) 0.02 Absolute Neuts (auto) 7.1 Absolute Nucleated RBC 0.000 Nucleated RBC % (auto) 0.0 Sodium 137 Potassium 4.1 Chloride 100 Carbon Dioxide 25 Anion Gap 16 BUN 10 Creatinine 0.72 Estim Creat Clear Calc 213.7 Estimated GFR > 60 POC Glucose 228 H Random Glucose 202 H Estimat Average Glucose Hemoglobin A1c % Calcium 9.7 D Total Bilirubin 0.3 AST 19 ALT 22 Alkaline Phosphatase 73 Total Protein 8.2 H Albumin 4.0 07/08/23 07/08/23 07/08/23 14:31 16:25 22:16 WBC RBC Hgb Hct MCV MCH MCHC RDW Plt Count MPV Immature Gran % (Auto) Neut % (Auto) Lymph % (Auto) Mora % (Auto) Eos % (Auto) Baso % (Auto) Lymph # (Auto) Mora # (Auto) Eos # (Auto) Baso # (Auto) Abs Immat Gran (auto) Absolute Neuts (auto) Absolute Nucleated RBC Nucleated RBC % (auto) Sodium Potassium Chloride Carbon Dioxide Anion Gap BUN Creatinine Estim Creat Clear Calc Estimated GFR POC Glucose 193 H 274 H Random Glucose Estimat Average Glucose 180 Hemoglobin A1c % 7.9 H Calcium Total Bilirubin AST ALT Alkaline Phosphatase Total Protein Albumin 07/08/23 07/09/23 07/09/23 22:16 08:25 11:59 WBC RBC Hgb Hct MCV MCH MCHC RDW Plt Count MPV Immature Gran % (Auto) Neut % (Auto) Lymph % (Auto) Mora % (Auto) Eos % (Auto) Baso % (Auto) Lymph # (Auto) Mora # (Auto) Eos # (Auto) Baso # (Auto) Abs Immat Gran (auto) Absolute Neuts (auto) Absolute Nucleated RBC Nucleated RBC % (auto) Sodium Potassium Chloride Carbon Dioxide Anion Gap BUN Creatinine Estim Creat Clear Calc Estimated GFR POC Glucose 274 H 213 H 268 H Random Glucose Estimat Average Glucose Hemoglobin A1c % Calcium Total Bilirubin AST ALT Alkaline Phosphatase Total Protein Albumin Imaging Radiology Impressions: ITS Impressions Chest X-Ray 06/21/23 07:57 IMPRESSION: No acute cardiopulmonary process. Medications Medications Current Medications Acetaminophen (Acetaminophen 325 Mg Tablet) 650 mg PO Q6H PRN PRN Reason: Headache/Pain Mild Scale (1-3) Al Hydroxide/Mg Hydroxide (Magnesium Hydrox/Alum Hydrox 30 Ml Oral.Susp) 30 ml PO Q6H PRN PRN Reason: Heartburn/Nausea Last Admin: 07/07/23 08:55 Dose: 30 ml Albuterol Sulfate (Albuterol Sulfate 90 Mcg 8 Gm Inhaler) 1 puff INHALE RQ4H PRN PRN Reason: Shortness Of Breath Last Admin: 07/07/23 22:44 Dose: 1 puff Aripiprazole (Aripiprazole 5 Mg Tablet) 5 mg PO DAILY [facility] Last Admin: 07/09/23 08:39 Dose: 5 mg Atorvastatin Calcium (Atorvastatin Calcium 40 Mg Tablet) 40 mg PO BEDTIME TOBY Last Admin: 07/08/23 22:30 Dose: 40 mg Bupropion HCl (Bupropion Hcl 75 Mg Tablet) 75 mg PO DAILY [facility] Last Admin: 07/09/23 08:39 Dose: 75 mg Carvedilol (Carvedilol 12.5 Mg Tablet) 12.5 mg PO BID TOBY; Protocol Last Admin: 07/09/23 08:39 Dose: 12.5 mg Cyanocobalamin (Cyanocobalamin (Vitamin B-12) 500 Mcg Tablet) 500 mcg PO DAILY TOBY Last Admin: 07/09/23 08:39 Dose: 500 mcg Dextrose (Dextrose 50 % 25 Gm/50 Ml Syringe) 25 gm IVPUSH Q15M PRN; Protocol PRN Reason: per Hypoglycemia Standing Ord. Dextrose (Dextrose 50 % 25 Gm/50 Ml Syringe) 25 gm IVPUSH Q15M PRN; Protocol PRN Reason: per Hypoglycemia Standing Ord. Escitalopram Oxalate (Escitalopram Oxalate 20 Mg Tablet) 20 mg PO DAILY TOBY Last Admin: 07/09/23 08:39 Dose: 20 mg Folic Acid (Folic Acid 1 Mg Tablet) 1 mg PO DAILY TOBY Last Admin: 07/09/23 08:39 Dose: 1 mg Furosemide (Furosemide 40 Mg Tablet) 40 mg PO DAILY TOBY; Protocol Last Admin: 07/09/23 08:39 Dose: 40 mg Gabapentin (Gabapentin 300 Mg Capsule) 300 mg PO BEDTIME TOBY Last Admin: 07/08/23 22:30 Dose: 300 mg Gabapentin (Gabapentin 100 Mg Capsule) 100 mg PO 0900,1500 TOBY Last Admin: 07/09/23 08:39 Dose: 100 mg Glucose (Glucose Gel 15 Gm Gel..Gram.) 15 gm PO Q15M PRN; Protocol PRN Reason: per Hypoglycemia Standing Ord. Glucose (Glucose Gel 15 Gm Gel..Gram.) 15 gm PO Q15M PRN; Protocol PRN Reason: per Hypoglycemia Standing Ord. Hydroxyzine HCl (Hydroxyzine Hcl 50 Mg Tablet) 50 mg PO BID PRN PRN Reason: anxiety Last Admin: 06/27/23 20:25 Dose: 50 mg Hydroxyzine HCl (Hydroxyzine Hcl 25 Mg Tablet) 25 mg PO Q6H PRN PRN Reason: Anxiety Ibuprofen (Ibuprofen 600 Mg Tablet) 600 mg PO TIDWM PRN PRN Reason: Pain, Moderate(Pain Scale 4-6) Insulin Human Lispro (Insulin Lispro 100 Unit/Ml 3 Ml Vial) 0 unit SUBCUT QIDACHS [facility]; Protocol Last Admin: 07/09/23 08:38 Dose: 4 unit Losartan Potassium (Losartan Potassium 25 Mg Tablet) 25 mg PO DAILY [facility]; Protocol Last Admin: 07/09/23 08:39 Dose: 25 mg Magnesium Hydroxide (Milk Of Magnesia 30 Ml Oral.Susp) 30 ml PO DAILY PRN PRN Reason: Constipation Melatonin (Melatonin 3 Mg Tablet) 6 mg PO BEDTIME PRN PRN Reason: Insomnia Last Admin: 07/07/23 22:02 Dose: 6 mg Metformin HCl (Metformin Hcl 500 Mg Tablet) 500 mg PO BID [facility] Last Admin: 07/09/23 08:39 Dose: 500 mg Multivitamins/Vitamin C (Multivitamin Tablet) 1 tab PO DAILY [facility] Last Admin: 07/09/23 08:39 Dose: 1 tab Naltrexone HCl (Naltrexone Hcl 50 Mg Tablet) 50 mg PO DAILY [facility] Last Admin: 07/09/23 08:39 Dose: 50 mg Omeprazole (Omeprazole 20 Mg Capsule.Dr) 20 mg PO DAILY@0630 [facility] Last Admin: 07/09/23 08:39 Dose: 20 mg Potassium Chloride (Potassium Chloride Er 10 Meq Tablet.Er) 10 meq PO DAILY [facility] Last Admin: 07/09/23 08:39 Dose: 10 meq Trazodone HCl (Trazodone Hcl 50 Mg Tablet) 50 mg PO BEDTIME MRX1 PRN PRN Reason: Insomnia Trazodone HCl (Trazodone Hcl 50 Mg Tablet) 50 mg PO BEDTIME MRX1 PRN PRN Reason: Insomnia Allergies Allergies Allergy/AdvReac Type Severity Reaction Status Date / Time No Known Allergies Allergy Verified 03/13/23 10:59 Assessment & Plan Assessment & Plan (1) MDD (major depressive disorder), recurrent episode, moderate: Status: Acute Code(s): F33.1 - Major depressive disorder, recurrent, moderate Assessment and Plan: Continue current plan of care and regime Discharge planning. (2) Alcohol use disorder, severe, dependence: Status: Acute Code(s): F10.20 - Alcohol dependence, uncomplicated Assessment and Plan: Referral to [facility] 6 week in pt program. 06/27/23: CIWA and Lorazepam discontinued Plan [age] year gentleman background systolic heart failure. He has background of alcoholism and nonischemic cardiomyopathy. He had angiogram before by his report and was told that he does not have any coronary disease. He has no anginal chest discomfort currently. Does not look significantly volume overloaded. I think he should stay on his home medications including carvedilol, Lasix daily 40 mg and losartan. Blood pressure is high then losartan can be titrated to a target blood pressure less than 130/80. 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 Thank you for allowing me to participate in the care of your patient. Please feel free to contact me if you have any questions. Plan 06/24 lower Prilosec keep rest the same 06/25 keep same treatment 06/26/23 Team working on [facility] 6 week program transfer Increase Sertraline to 50 mg daily Gabapentin 100 mg 9am 3pm to trial to address anxiety. 06/28/23 Continue current regime and plan. TDN to 06/29. Pt undecided about retracting this. 06/29/23 TDN retracted DC Sertraline Lexapro 20 mg daily Abilify 2 mg daily 06/30/23 Continue current regime and plan of care. 07/01/23 Continue treatment plan 07/02/23 continue treatment plan 07/03/23 Increase Abilify to 5 mg a.m. Wellbutrin 75 mg a.m. 07/05/23 Team [facility] Continue current regime TDN filed. 07/06/23 Naltrexone 50 mg daily Discharge planning, TDN 07/10. 07/07/23 TDN expires 07/10 Plans [facility] states they will offer the 6 week program in addition. 07/09: no changes Reason for continued inpatient stay Substantial Risk for: rapid decompensation Time Spent With Patient Time: Total time managing care of this patient today ____ minutes.
[2023-07-09 17:39] LABS: Glucose, Whole Blood 220 mg/dL (60-115)
[2023-07-09 21:35] LABS: Glucose, Whole Blood 205 mg/dL (60-115)
[2023-07-09 21:44] VITALS: BP 140/73; PULSE 83; RESP 18; TEMP 36.8; O2SAT 93
[2023-07-09] MEDS: Atorvastatin Calcium 40 MG TABLET PO (21:58)
[2023-07-09] MEDS: Melatonin 3 MG TABLET 6 MG PO (21:58)
[2023-07-09] MEDS: Gabapentin 300 MG CAPSULE PO (21:58)
[2023-07-10 04:48] VITALS: RESP 18
[2023-07-10 07:59] LABS: Glucose, Whole Blood 191 mg/dL (60-115)
[2023-07-10] MEDS: Insulin Lispro 100 UNIT/ML 3 ML VIAL SUBCUT (08:58)
[2023-07-10] MEDS: Furosemide 40 MG TABLET PO (09:00)
[2023-07-10] MEDS: Potassium Chloride ER 10 MEQ TABLET.ER PO (09:00)
[2023-07-10] MEDS: Naltrexone HCl 50 MG TABLET PO (09:00)
[2023-07-10] MEDS: Multivitamin TABLET 1 TAB PO (09:00)
[2023-07-10] MEDS: Folic Acid 1 MG TABLET PO (09:00)
[2023-07-10] MEDS: ARIPiprazole 5 MG TABLET PO (09:00)
[2023-07-10] MEDS: carvediloL 12.5 MG TABLET PO (09:00)
[2023-07-10] MEDS: Escitalopram Oxalate 20 MG TABLET PO (09:00)
[2023-07-10] MEDS: buPROPion HCL 75 MG TABLET PO (09:00)
[2023-07-10] MEDS: metFORMIN HCl 500 MG TABLET PO (09:00)
[2023-07-10] MEDS: Losartan Potassium 25 MG TABLET PO (09:00)
[2023-07-10] MEDS: Gabapentin 100 MG CAPSULE PO (09:00)
[2023-07-10] MEDS: Cyanocobalamin (Vitamin B-12) 500 MCG TABLET PO (09:00)
[2023-07-10] MEDS: Omeprazole 20 MG CAPSULE.DR PO (09:01)
[2023-07-10 09:16] VITALS: BP 160/72; PULSE 83; RESP 18; TEMP 36.2; O2SAT 92
--- NOTE | 2023-07-10 16:25 | PM.PSYDC ---
DS: Providers Provider Date of Service: 07/10/23 Date of admission: 06/21/23 13:51 Date of discharge: 07/10/23 Primary care physician: Unknown Physician Admitting clinician: Vanesa Mitchell Attending physician on admission: Jori Rodriguez Consults: 06/22/23 16:36 Consult to Cardiology Routine Consulting Provider: [facility] Cardiovascular Services Reason for consultation: Persistantent chest pain, detox, HTN non compliance Has provider been notified: No 06/23/23 18:48 Addiction Medicine Routine Consulting Provider: Addiction Covering Reason for consultation: Pt wanting to do step work if possible Has provider been notified: No 06/27/23 11:08 Consult to Pulmonology Routine Consulting Provider: [facility] Pulmonology Services Reason for consultation: Pt using CPAP which needs adjustment as mask does not fit Has provider been notified: No Attending physician on discharge: Jori Rodriguez Discharging clinician: Vanesa Mitchell DS: Diagnosis Discharge Diagnosis (1) MDD (major depressive disorder), recurrent episode, moderate: Status: Acute (2) Alcohol use disorder, severe, dependence: Status: Acute DS: Medications Discharge Medications Home Medications: Home Medications Medication Instructions Recorded Confirmed dapagliflozin propanediol 10 mg 10 mg PO DAILY 06/21/23 06/21/23 tablet (Farxiga) Previous Rx's Medication Instructions Recorded ibuprofen 600 mg tablet 600 mg PO TIDWM PRN Pain, 05/23/23 Moderate(Pain Scale 4-6) #90 tabs albuterol sulfate 90 mcg/actuation 1 puff inhalation RQ4H PRN 07/10/23 aerosol inhaler (Ventolin HFA) Shortness Of Breath 30 days #1 inhaler aripiprazole 5 mg tablet (Abilify) 5 mg PO DAILY #30 tabs 07/10/23 atorvastatin 40 mg tablet 40 mg PO BEDTIME #30 tabs 07/10/23 bupropion HCl 75 mg tablet 75 mg PO DAILY #30 tabs 07/10/23 carvedilol 12.5 mg tablet 12.5 mg PO BID #60 tabs 07/10/23 cyanocobalamin (vitamin B-12) 500 500 mcg PO DAILY #30 tabs 07/10/23 mcg tablet escitalopram oxalate 20 mg tablet 20 mg PO DAILY #30 tabs 07/10/23 folic acid 1 mg tablet 1 mg PO DAILY #30 tabs 07/10/23 furosemide 40 mg tablet 40 mg PO DAILY #30 tabs 07/10/23 gabapentin 100 mg capsule 100 mg PO 0900,1500 #60 caps 07/10/23 gabapentin 300 mg capsule 300 mg PO BEDTIME #30 caps 07/10/23 hydroxyzine pamoate 50 mg capsule 50 mg PO BID PRN anxiety #60 caps 07/10/23 losartan 25 mg tablet 25 mg PO DAILY #30 tabs 07/10/23 melatonin 3 mg tablet 6 mg PO BEDTIME PRN Insomnia #60 07/10/23 tabs metformin 500 mg tablet 500 mg PO BID #60 tabs 07/10/23 multivitamin (Daily-Loren tablet) 1 tab PO DAILY #30 tabs 07/10/23 naltrexone 50 mg tablet 50 mg PO DAILY #30 tabs 07/10/23 omeprazole 20 mg capsule,delayed 20 mg PO DAILY@0630 #30 caps 07/10/23 release potassium chloride 10 mEq 10 meq PO DAILY #30 caps 07/10/23 capsule,extended release trazodone 50 mg tablet 50 mg PO BEDTIME MRX1 PRN Insomnia 07/10/23 #60 tabs Mental Status Exam Mental Status Exam Patient Appearance: Appropriate Patient Orientation: Person, Place, Time and Situation Level of Consciousness: Alert Patient Behavior: Appropriate, Talkative, Cooperative and Good Eye Contact Mood Description: Constricted Affect Description: Constricted Patient Cognition Impaired: No Ability to Follow Directions: Good Speech Pattern: Spontaneous Speech Memory Description: Intact Hallucinations: None Delusions: Not Present Thought Process: Intact and Goal Oriented Thought Content: positive for Circumstantial and positive for Goal Oriented Depressive Symptoms: Increased Irritability, Increased Fatigue, Thoughts of /Suicide (denies) and Loss of Energy Judgement: Fair Data Data Completed and Pending Completed studies during hospitalization [Text1]: 07/03/23 07/03/23 07/04/23 17:01 20:24 07:55 WBC RBC Hgb Hct MCV MCH MCHC RDW Plt Count MPV Immature Gran % (Auto) Neut % (Auto) Lymph % (Auto) B[place] % (Auto) Eos % (Auto) Baso % (Auto) Lymph # (Auto) [place] # (Auto) Eos # (Auto) Baso # (Auto) Abs Immat Gran (auto) Absolute Neuts (auto) Absolute Nucleated RBC Nucleated RBC % (auto) Sodium Potassium Chloride Carbon Dioxide Anion Gap BUN Creatinine Estim Creat Clear Calc Estimated GFR POC Glucose 278 H 286 H 252 H Random Glucose Estimat Average Glucose Hemoglobin A1c % Calcium Total Bilirubin AST ALT Alkaline Phosphatase Total Protein Albumin 07/04/23 07/04/23 07/04/23 08:20 12:15 16:41 WBC RBC Hgb Hct MCV MCH MCHC RDW Plt Count MPV Immature Gran % (Auto) Neut % (Auto) Lymph % (Auto) Benton % (Auto) Eos % (Auto) Baso % (Auto) Lymph # (Auto) [place] # (Auto) Eos # (Auto) Baso # (Auto) Abs Immat Gran (auto) Absolute Neuts (auto) Absolute Nucleated RBC Nucleated RBC % (auto) Sodium Potassium Chloride Carbon Dioxide Anion Gap BUN Creatinine 0.71 Estim Creat Clear Calc 216.7 Estimated GFR > 60 POC Glucose 280 H 223 H Random Glucose Estimat Average Glucose Hemoglobin A1c % Calcium Total Bilirubin AST ALT Alkaline Phosphatase Total Protein Albumin 07/04/23 07/05/23 07/05/23 19:37 07:52 12:17 WBC RBC Hgb Hct MCV MCH MCHC RDW Plt Count MPV Immature Gran % (Auto) Neut % (Auto) Lymph % (Auto) Benton % (Auto) Eos % (Auto) Baso % (Auto) Lymph # (Auto) [place] # (Auto) Eos # (Auto) Baso # (Auto) Abs Immat Gran (auto) Absolute Neuts (auto) Absolute Nucleated RBC Nucleated RBC % (auto) Sodium Potassium Chloride Carbon Dioxide Anion Gap BUN Creatinine Estim Creat Clear Calc Estimated GFR POC Glucose 256 H 204 H 248 H Random Glucose Estimat Average Glucose Hemoglobin A1c % Calcium Total Bilirubin AST ALT Alkaline Phosphatase Total Protein Albumin 07/05/23 07/05/23 07/06/23 17:26 20:34 08:34 WBC RBC Hgb Hct MCV MCH MCHC RDW Plt Count MPV Immature Gran % (Auto) Neut % (Auto) Lymph % (Auto) Benton % (Auto) Eos % (Auto) Baso % (Auto) Lymph # (Auto) Benton # (Auto) Eos # (Auto) Baso # (Auto) Abs Immat Gran (auto) Absolute Neuts (auto) Absolute Nucleated RBC Nucleated RBC % (auto) Sodium Potassium Chloride Carbon Dioxide Anion Gap BUN Creatinine Estim Creat Clear Calc Estimated GFR POC Glucose 233 H 261 H 245 H Random Glucose Estimat Average Glucose Hemoglobin A1c % Calcium Total Bilirubin AST ALT Alkaline Phosphatase Total Protein Albumin 07/06/23 07/06/23 07/06/23 11:50 17:13 21:50 WBC RBC Hgb Hct MCV MCH MCHC RDW Plt Count MPV Immature Gran % (Auto) Neut % (Auto) Lymph % (Auto) Benton % (Auto) Eos % (Auto) Baso % (Auto) Lymph # (Auto) Benton # (Auto) Eos # (Auto) Baso # (Auto) Abs Immat Gran (auto) Absolute Neuts (auto) Absolute Nucleated RBC Nucleated RBC % (auto) Sodium Potassium Chloride Carbon Dioxide Anion Gap BUN Creatinine Estim Creat Clear Calc Estimated GFR POC Glucose 285 H 304 H 259 H Random Glucose Estimat Average Glucose Hemoglobin A1c % Calcium Total Bilirubin AST ALT Alkaline Phosphatase Total Protein Albumin 07/07/23 07/07/23 07/07/23 08:43 11:53 17:32 WBC RBC Hgb Hct MCV MCH MCHC RDW Plt Count MPV Immature Gran % (Auto) Neut % (Auto) Lymph % (Auto) Benton % (Auto) Eos % (Auto) Baso % (Auto) Lymph # (Auto) Benton # (Auto) Eos # (Auto) Baso # (Auto) Abs Immat Gran (auto) Absolute Neuts (auto) Absolute Nucleated RBC Nucleated RBC % (auto) Sodium Potassium Chloride Carbon Dioxide Anion Gap BUN Creatinine Estim Creat Clear Calc Estimated GFR POC Glucose 244 H 258 H 240 H Random Glucose Estimat Average Glucose Hemoglobin A1c % Calcium Total Bilirubin AST ALT Alkaline Phosphatase Total Protein Albumin 07/07/23 07/08/23 07/08/23 21:41 08:36 13:47 WBC RBC Hgb Hct MCV MCH MCHC RDW Plt Count MPV Immature Gran % (Auto) Neut % (Auto) Lymph % (Auto) Benton % (Auto) Eos % (Auto) Baso % (Auto) Lymph # (Auto) Benton # (Auto) Eos # (Auto) Baso # (Auto) Abs Immat Gran (auto) Absolute Neuts (auto) Absolute Nucleated RBC Nucleated RBC % (auto) Sodium Potassium Chloride Carbon Dioxide Anion Gap BUN Creatinine Estim Creat Clear Calc Estimated GFR POC Glucose 228 H 256 H 228 H Random Glucose Estimat Average Glucose Hemoglobin A1c % Calcium Total Bilirubin AST ALT Alkaline Phosphatase Total Protein Albumin 07/08/23 07/08/23 07/08/23 14:31 14:31 14:31 WBC 9.7 RBC 4.70 Hgb 13.8 L Hct 43.3 MCV 92.1 MCH 29.4 MCHC 31.9 RDW 14.1 Plt Count 322 D MPV 10.8 Immature Gran % (Auto) 0.2 Neut % (Auto) 72.6 Lymph % (Auto) 17.0 L Benton % (Auto) 6.8 Eos % (Auto) 2.6 Baso % (Auto) 0.8 Lymph # (Auto) 1.7 Benton # (Auto) 0.7 Eos # (Auto) 0.3 Baso # (Auto) 0.1 Abs Immat Gran (auto) 0.02 Absolute Neuts (auto) 7.1 Absolute Nucleated RBC 0.000 Nucleated RBC % (auto) 0.0 Sodium 137 Potassium 4.1 Chloride 100 Carbon Dioxide 25 Anion Gap 16 BUN 10 Creatinine 0.72 Estim Creat Clear Calc 213.7 Estimated GFR > 60 POC Glucose Random Glucose 202 H Estimat Average Glucose 180 Hemoglobin A1c % 7.9 H Calcium 9.7 D Total Bilirubin 0.3 AST 19 ALT 22 Alkaline Phosphatase 73 Total Protein 8.2 H Albumin 4.0 07/08/23 07/08/23 07/08/23 16:25 22:16 22:16 WBC RBC Hgb Hct MCV MCH MCHC RDW Plt Count MPV Immature Gran % (Auto) Neut % (Auto) Lymph % (Auto) Benton % (Auto) Eos % (Auto) Baso % (Auto) Lymph # (Auto) Benton # (Auto) Eos # (Auto) Baso # (Auto) Abs Immat Gran (auto) Absolute Neuts (auto) Absolute Nucleated RBC Nucleated RBC % (auto) Sodium Potassium Chloride Carbon Dioxide Anion Gap BUN Creatinine Estim Creat Clear Calc Estimated GFR POC Glucose 193 H 274 H 274 H Random Glucose Estimat Average Glucose Hemoglobin A1c % Calcium Total Bilirubin AST ALT Alkaline Phosphatase Total Protein Albumin 07/09/23 07/09/23 07/09/23 08:25 11:59 17:35 WBC RBC Hgb Hct MCV MCH MCHC RDW Plt Count MPV Immature Gran % (Auto) Neut % (Auto) Lymph % (Auto) Benton % (Auto) Eos % (Auto) Baso % (Auto) Lymph # (Auto) Benton # (Auto) Eos # (Auto) Baso # (Auto) Abs Immat Gran (auto) Absolute Neuts (auto) Absolute Nucleated RBC Nucleated RBC % (auto) Sodium Potassium Chloride Carbon Dioxide Anion Gap BUN Creatinine Estim Creat Clear Calc Estimated GFR POC Glucose 213 H 268 H 220 H Random Glucose Estimat Average Glucose Hemoglobin A1c % Calcium Total Bilirubin AST ALT Alkaline Phosphatase Total Protein Albumin 07/09/23 07/10/23 21:31 07:55 WBC RBC Hgb Hct MCV MCH MCHC RDW Plt Count MPV Immature Gran % (Auto) Neut % (Auto) Lymph % (Auto) Benton % (Auto) Eos % (Auto) Baso % (Auto) Lymph # (Auto) Benton # (Auto) Eos # (Auto) Baso # (Auto) Abs Immat Gran (auto) Absolute Neuts (auto) Absolute Nucleated RBC Nucleated RBC % (auto) Sodium Potassium Chloride Carbon Dioxide Anion Gap BUN Creatinine Estim Creat Clear Calc Estimated GFR POC Glucose 205 H 191 H Random Glucose Estimat Average Glucose Hemoglobin A1c % Calcium Total Bilirubin AST ALT Alkaline Phosphatase Total Protein Albumin Imaging Diagnostic Imaging Impressions Chest X-Ray 06/21/23 07:57 IMPRESSION: No acute cardiopulmonary process. DS: Summary Hospital Course Hospital Course: Admission to adult psychiatry for exacerbation of alcohol use disorder, recurrent major depression. Recent admission 05/13-05/24, ER eval 05/30. Pt has not been compliant with regime or plan of care since last discharge. He had relapsed as well. Pt has not attended scheduled programs as identified in his last discharge. Section 35 was discussed. The OR was contacted and requested to consider [facility] for their in patient terminal computer operator program. They did not follow up, even with the assistance of [employer] career development associate and several calls from the team. Pt had medical, medication review and adjustments. He will return home to attend [facility]11 [facility] [employer] [employer] will continue to request the OR interviene with accomodation for their in pt program. Time spent discussing smoking cessation with patient: 3 to 10 minutes Status at Discharge Functional status at discharge: independent ambulation Overall status at discharge: patient is progressing back to baseline Time Spent with Patient Time attestation: Total time managing care of this patient today ____ minutes. Time spent: Greater than 30 minutes Discharge Plan Discharge Anticipated Discharge Date/Time: 07/10/23 12:58 Patient Disposition: Home, Self-Care Discharge Diagnosis: Recurrent Major Depression, Severe Alcohol Use Disorder, Severe, Dependence Referrals: [facility] [Other] - 1 Week (Referral to [facility] Program begins on 07/11/23 at 9:30 am in person.) Esteban Hernandez: [place] outpatient [facility] [place] [Other] - 1 Week ([facility] appointment with [facility]. If you do not hear anything within 3 days call [facility] to [facility] and obtain appointment[facility] [Other] - 1 Week (Follow-up hospital discharge appointment with [facility] with [facility] after [facility]. If you do not hear anything from them by 07/13/23 call the [place] mental health clinic to obtain appointment.) Discharge Medications: New furosemide 40 mg Tablet 40 mg PO DAILY Qty: 30 0RF Protocol: Hold for SBP< HOLD for SBP < : 90 naltrexone 50 mg Tablet 50 mg PO DAILY Qty: 30 0RF melatonin 3 mg Tablet 6 mg PO BEDTIME PRN (Reason: Insomnia) Qty: 60 0RF cyanocobalamin (vitamin B-12) 500 mcg Tablet 500 mcg PO DAILY Qty: 30 0RF bupropion HCl 75 mg Tablet 75 mg PO DAILY Qty: 30 0RF omeprazole 20 mg Capsule,Delayed Release(Dr/Ec) 20 mg PO DAILY@0630 Qty: 30 0RF folic acid 1 mg Tablet 1 mg PO DAILY Qty: 30 0RF gabapentin 100 mg Capsule 100 mg PO 0900,1500 Qty: 60 0RF aripiprazole [Abilify] 5 mg Tablet 5 mg PO DAILY Qty: 30 0RF multivitamin [Daily-Loren] Tablet 1 tab PO DAILY Qty: 30 0RF Continued ibuprofen 600 mg Tablet 600 mg PO TIDWM PRN (Reason: Pain, Moderate(Pain Scale 4-6)) Qty: 90 0RF Farxiga 10 mg tablet 10 mg PO DAILY atorvastatin 40 mg tablet 40 mg PO BEDTIME Qty: 30 0RF metformin 500 mg tablet 500 mg PO BID Qty: 60 0RF potassium chloride 10 mEq capsule, extended release 10 meq PO DAILY Qty: 30 0RF carvedilol 12.5 mg Tablet 12.5 mg PO BID Qty: 60 0RF Protocol: Hold for SBP/HR < HOLD for SBP < : 90 HOLD for HR < : 60 trazodone 50 mg Tablet 50 mg PO BEDTIME MRX1 PRN (Reason: Insomnia) Qty: 60 0RF hydroxyzine pamoate 50 mg capsule 50 mg PO BID PRN (Reason: anxiety) Qty: 60 0RF losartan 25 mg tablet 25 mg PO DAILY Qty: 30 0RF gabapentin 300 mg Capsule 300 mg PO BEDTIME Qty: 30 0RF albuterol sulfate [Ventolin HFA] 90 mcg/actuation Hfa Aerosol Inhaler 1 puff inhalation RQ4H PRN (Reason: Shortness Of Breath) 30 Days Qty: 1 0RF escitalopram oxalate 20 mg tablet 20 mg PO DAILY Qty: 30 0RF Discontinued melatonin 3 mg Tablet 6 mg PO BEDTIME PRN (Reason: Insomnia) Qty: 60 0RF lorazepam [Ativan] 0.5 mg tablet 0.5 mg PO BID PRN (Reason: anxiety) Qty: 15 0RF Rx Instructions: Take one tablet twice daily as needed for anxiety for 5 days, then take one tablet daily as needed for anxiety for 5 days, then discontinue furosemide 40 mg tablet 40 mg PO DAILY PRN (Reason: Edema) Discharge Orders: Discharge Order (Routine); Ordered 07/10/23 Ordered By: Vanesa Mitchell Diet: Diabetic diet Activity on Discharge: As tolerated Stand Alone Forms: Patient Portal Discharge page, Community Support Care Plan Goals: Sobriety Mood and Behavioral Stability Health Concerns: Sobriety Mood and Behavioral Stability Plan of Treatment: Attend [facility] program beginning 07/11/23. Assessment: Pt interviewed prior to discharge and found to be fully oriented and without SI/HI. Pt has insight and demonstrates good judgment in terms of wanting to pursue treatment. Pt is not in imminent risk of harm to self or others and has a safety plan that includes presenting to the closest ER or calling 911 if feeling unsafe. Pt has been observed closely by nursing and unit staff throughout admission. Pt has not engaged in any behaviors that suggest dangerousness to self or others and has demonstated appropriate behaviors and impulse control. Discharge Date/Time: 07/10/23 11:48
== END 2023-07-10 11:48 | disposition home or self-care (01) | DRG 885 ==
LOC: HO.ED 07:00 → HO.PM5 06-21 13:59
PROVIDERS: Emergency Medicine; Physician Assistant; Registered Nurse Emergency; Admitting Provider Psychiatry & Neurology Psychiatry; Emergency Provider Emergency Medicine; Visit Provider Clinical Nurse Specialist Psychiatric/Mental Health, Adult
DX: F33.1 Major depressive disorder, recurrent, moderate (principal); R45.851 Suicidal ideations; Z68.43 Body mass index [BMI] 50.0-59.9, adult; I42.8 Other cardiomyopathies; I50.22 Chronic systolic (congestive) heart failure; G47.33 Obstructive sleep apnea (adult) (pediatric); F43.10 Post-traumatic stress disorder, unspecified; F10.20 Alcohol dependence, uncomplicated; E66.01 Morbid (severe) obesity due to excess calories; Z91.199 Patient's noncompliance with other medical treatment and regimen due to unspecified reason; Y90.8 Blood alcohol level of 240 mg/100 ml or more; Z20.822 Contact with and (suspected) exposure to COVID-19; Z79.84 Long term (current) use of oral hypoglycemic drugs; Z79.899 Other long term (current) drug therapy
CPT/HCPCS: 36415; 71046; 80048; 80053; 80061; 80076; 80307; 81003; 82565; 82607; 82746; 82947; 83036; 83735; 83880; 84439; 84443; 85025; 87635; 93005; 94660; 99285; S9485

== ENCOUNTER → 2023-06-21 09:06 | Outpatient (BNV) | payer MEDICARE, MEDICAID, SELFPAY | PROVIDERS: Admitting Provider Psychiatry & Neurology Psychiatry; Emergency Provider Emergency Medicine; Visit Provider Internal Medicine Cardiovascular Disease | DX: I45.81 Long QT syndrome (principal); Z51.81 Encounter for therapeutic drug level monitoring | CPT/HCPCS: 93010 ==

== ENCOUNTER → 2023-06-21 13:51 | Outpatient (BNV) | payer MEDICARE, MEDICAID, SELFPAY | PROVIDERS: Admitting Provider Psychiatry & Neurology Psychiatry; Emergency Provider Emergency Medicine; Visit Provider Internal Medicine | DX: G47.33 Obstructive sleep apnea (adult) (pediatric) (principal); E66.01 Morbid (severe) obesity due to excess calories; Z99.89 Dependence on other enabling machines and devices; R09.02 Hypoxemia | CPT/HCPCS: 99222 ==

== ENCOUNTER → 2023-06-21 13:51 | Outpatient (BNV) | payer MEDICARE, MEDICAID, SELFPAY | PROVIDERS: Admitting Provider Psychiatry & Neurology Psychiatry; Emergency Provider Emergency Medicine; Visit Provider Internal Medicine Cardiovascular Disease | DX: I50.20 Unspecified systolic (congestive) heart failure (principal) | CPT/HCPCS: 99222 ==

== ENCOUNTER → 2023-06-21 13:51 | Outpatient (BNV) | payer MEDICARE, MEDICAID, SELFPAY | PROVIDERS: Admitting Provider Psychiatry & Neurology Psychiatry; Emergency Provider Emergency Medicine; Visit Provider Clinical Nurse Specialist Psychiatric/Mental Health, Adult | DX: F33.1 Major depressive disorder, recurrent, moderate (principal); F10.20 Alcohol dependence, uncomplicated | CPT/HCPCS: 90792; 99231; 99232; 99239; 99499 ==

== ENCOUNTER 2023-07-24 05:08 | Inpatient (IN) | payer MEDICARE, MEDICAID, SELFPAY ==
[2023-07-24] VITALS (12 sets, daily range): BP systolic 140–183; BP diastolic 57–118; PULSE 85–118; RESP 13–24; TEMP 36.4–37; O2SAT 89–99; BMI 56.3
--- NOTE | 2023-07-24 | ECG_ITS ---
Test Reason : CHEST PAIN Blood Pressure : / mmHG Vent. Rate : 085 BPM Atrial Rate : 085 BPM P-R Int : 212 ms QRS Dur : 096 ms QT Int : 426 ms P-R-T Axes : 040 229 009 degrees QTc Int : 506 ms Sinus rhythm with 1st degree A-V block Low voltage QRS Incomplete right bundle branch block Possible Anterolateral infarct (cited on or before 24-DEC-2022) Prolonged QT Abnormal ECG When compared with ECG of 21-JUN-2023 09:06, Premature ventricular complexes are no longer Present MI interval has increased Incomplete right bundle branch block is now Present Referred By: Generic ED Physician Electronically Signed By:ZENA ONEIL
--- NOTE | ~2023-07-24 | CT_ITS ---
EXAMINATION: CT CHEST WITHOUT CONTRAST CLINICAL INFORMATION: Hypoxia. COMPARISON: 03/13/2023 TECHNIQUE: Multidetector volumetric CT imaging of the chest was done. Axial MIP volume rendering provided. Sagittal and coronal reformatted images were obtained. This CT examination was performed using dose optimization techniques as appropriate, variously including the following: *Automated exposure control *Adjustment of mA and/or kV according to patient size (this includes techniques or standardized protocols for targeted exams where dose is matched to indication/reason for exam; i.e. extremities or head) *Use of iterative reconstruction technique DLP: 740 mGy-cm FINDINGS: LUNGS: No focal consolidation. No suspicious pulmonary nodule. Central airways are patent. MEDIASTINUM: No bulky axillary, hilar or mediastinal lymphadenopathy. Great vessels are of normal caliber. Heart size is normal. No pericardial effusion. CORONARY ARTERY CALCIFICATION: None visualized on this study. PLEURA: There is no pleural effusion. No pleural mass or thickening. UPPER ABDOMEN: Please see separately dictated report. OSSEOUS STRUCTURES: No destructive bone lesions. CT/CT chest wo IV con IMPRESSION: No acute intrathoracic abnormality.
--- NOTE | ~2023-07-24 | XR_ITS ---
EXAMINATION: XR CHEST CLINICAL INFORMATION: Chest pain COMPARISON: 06/21/2023 TECHNIQUE: 2 views of the chest were obtained. FINDINGS: The cardiomediastinal silhouette is stable. There is no focal lung consolidation or pleural effusion. The bony structures and soft tissues are unremarkable. XR/XR chest 2V IMPRESSION: No active cardiopulmonary disease.
--- NOTE | ~2023-07-24 | CT_ITS ---
EXAMINATION: CT ABDOMEN AND PELVIS WITH CONTRAST CLINICAL INFORMATION: Diffuse abdominal pain. COMPARISON: 03/13/2023 TECHNIQUE: Multidetector volumetric images were obtained from the superior aspect of the liver through the pubic symphysis following administration 100 mL of Omnipaque 350 intravenous contrast. Sagittal and coronal reformatted images were obtained on the technologist's workstation. Oral contrast: No This CT examination was performed using dose optimization techniques as appropriate, variously including the following: *Automated exposure control *Adjustment of mA and/or kV according to patient size (this includes techniques or standardized protocols for targeted exams where dose is matched to indication/reason for exam; i.e. extremities or head) *Use of iterative reconstruction technique DLP: 1969 mGy-cm FINDINGS: Technically limited by patient's body habitus. LUNG BASES: No pleural or pericardial effusion. LIVER, GALLBLADDER, AND BILIARY TREE: The liver is enlarged. No focal hepatic lesion or biliary ductal dilatation is present. The gallbladder is unremarkable with no evidence of radiopaque gallstones, gallbladder wall thickening, or obvious pericholecystic inflammatory changes. PANCREAS: No ductal dilatation. SPLEEN: Not enlarged. ADRENAL GLANDS: No adrenal masses. KIDNEYS AND URETERS: The kidneys enhance normally. No hydronephrosis. Nonspecific perinephric stranding. BLADDER: Unremarkable. GASTROINTESTINAL TRACT: Small and large bowel loops are of normal caliber. No small bowel obstruction. Appendix is within normal limits. ABDOMINAL WALL: No significant hernia is appreciated. LYMPH NODES: Nonspecific bilateral iliac chain, inguinal and obturator lymph nodes. VASCULAR: Normal caliber abdominal aorta. PELVIC VISCERA: The prostate gland and seminal vesicles are unremarkable. OSSEOUS STRUCTURES: No destructive bone lesions. CT/CT abdomen pelvis w IV con IMPRESSION: No acute abnormality in the abdomen or pelvis.
[2023-07-24 05:57] LABS: COVID-19 Test Negative (Negative); IDNOW Serial# 6674DD1D
[2023-07-24 06:13] LABS: Basophils Absolute Auto 0.1 X10*3/uL (0.0-0.2); Basophils Percent Auto 1.2 % (0-2); Eosinophils Absolute Auto 0.1 X10*3/uL (0.0-0.4); Hematocrit 40.4 % (42.0-52.0); Hemoglobin 13.4 g/dl (14.0-18.0); Imm Gran Abs Auto 0.01 X10*3/uL (0.00-0.03); Imm Gran Pct Auto 0.2 % (0.0-0.4); Lymphocytes Absolute Auto 1.5 X10*3/uL (1.2-4.9); Lymphocytes Percent Auto 29.1 % (20-40); MANUAL DIFF FLAG NO; Mean Corpuscular HGB Conc 33.2 g/dl (31.0-36.0); Mean Corpuscular Hemoglobin 29.5 pg (27.0-33.0); Mean Platelet Volume 9.9 fL (9.4-12.4); Monocytes Absolute Auto 0.6 X10*3/uL (0.1-1.2); Monocytes Percent Auto 12.4 % (2-11); Neutrophils Absolute Auto 2.8 x10*3/uL (2.0-8.3); Neutrophils Percent Auto 55.1 % (45-73); Platelet Count 254 X10*3/uL (160-400); Red Blood Count 4.54 X10*6/uL (4.60-5.80); Red Cell Distribution Width 14.6 % (11.0-16.0); White Blood Count 5.1 X10*3/uL (4.8-10.8)
[2023-07-24 06:28] LABS: Alanine Aminotransferase 15 U/L (0-40); Albumin Level 3.7 g/dL (3.5-5.0); Alkaline Phosphatase 79 U/L (39-117); Anion Gap 16 (12-20); Aspartate Amino Transferase 20 U/L (5-37); Bilirubin Direct 0.1 mg/dL (0.0-0.5); Bilirubin Total 0.3 mg/dL (0.0-1.0); Blood Urea Nitrogen 11 mg/dL (9-16); Calcium 8.1 mg/dL (8.4-10.2); Carbon Dioxide 28 mmol/L (22-29); Chloride 101 mmol/L (96-108); Estimated Glomerular Filt Rate > 60; Glucose Random 241 mg/dL (60-115); Lipase 17 U/L (8-78); Sodium 141 mmol/L (135-145); Total Protein 7.7 g/dL (6.5-8.0)
--- NOTE | 2023-07-24 06:29 | PC.NURSE ---
Pt BIBA from home, Pt A&Ox3, reports SOB, all over ABD pain, vomiting, and intermittent left sided CP since yesterday, states CP radiates to left arm intermittent. Pt speaking in full sentences, Spo2 96% on 3L via NC, RR 24, lung sounds diminished. Pt reports he has sleep apnea. Tender to upper ABD, + bowel sounds x 4 quadrants, reports last BM was yesterday. Reports burning with urination. BLL edema noted. EKG obtained and read by ED provider, Pt placed on bedside monitor, IV line placed, blood work collected and sent to lab.
--- NOTE | 2023-07-24 06:34 | ED_ITS ---
HPI - General Adult General Chief complaint: General Medical Stated complaint: vomitting, and SOB Time Seen by Provider: 07/24/23 06:34 Source: patient, EMS, RN notes reviewed and old records reviewed Mode of arrival: EMS History of Present Illness HPI narrative: 52-year-old male with a history of morbid obesity, TERRIE on CPAP, CHF, ETOH abuse, arthritis, PTSD, depression, anxiety, diabetes, HTN, presenting to the ED complaining of chest tightness, SOB, diffuse abdominal pain, nausea, vomiting, and diarrhea since yesterday. Also reports increasing pedal edema and noncompliance with Lasix for few days due to running out of prescription. Reports SOB at rest. Denies cough, fever, recent travel, sick contacts, urinary symptoms Onset (ago): day(s) Related Data Home Medications Medication Instructions Recorded Confirmed dapagliflozin propanediol 10 mg 10 mg PO DAILY 06/21/23 06/21/23 tablet (Farxiga) Previous Rx's Medication Instructions Recorded ibuprofen 600 mg tablet 600 mg PO TIDWM PRN Pain, 05/23/23 Moderate(Pain Scale 4-6) #90 tabs albuterol sulfate 90 mcg/actuation 1 puff inhalation RQ4H PRN 07/10/23 aerosol inhaler (Ventolin HFA) Shortness Of Breath 30 days #1 inhaler aripiprazole 5 mg tablet (Abilify) 5 mg PO DAILY #30 tabs 07/10/23 atorvastatin 40 mg tablet 40 mg PO BEDTIME #30 tabs 07/10/23 bupropion HCl 75 mg tablet 75 mg PO DAILY #30 tabs 07/10/23 carvedilol 12.5 mg tablet 12.5 mg PO BID #60 tabs 07/10/23 cyanocobalamin (vitamin B-12) 500 500 mcg PO DAILY #30 tabs 07/10/23 mcg tablet escitalopram oxalate 20 mg tablet 20 mg PO DAILY #30 tabs 07/10/23 folic acid 1 mg tablet 1 mg PO DAILY #30 tabs 07/10/23 furosemide 40 mg tablet 40 mg PO DAILY #30 tabs 07/10/23 gabapentin 100 mg capsule 100 mg PO 0900,1500 #60 caps 07/10/23 gabapentin 300 mg capsule 300 mg PO BEDTIME #30 caps 07/10/23 hydroxyzine pamoate 50 mg capsule 50 mg PO BID PRN anxiety #60 caps 07/10/23 losartan 25 mg tablet 25 mg PO DAILY #30 tabs 07/10/23 melatonin 3 mg tablet 6 mg (2 x 3 mg) PO BEDTIME PRN 07/10/23 Insomnia #60 tabs metformin 500 mg tablet 500 mg PO BID #60 tabs 07/10/23 multivitamin (Daily-Loren tablet) 1 tab PO DAILY #30 tabs 07/10/23 naltrexone 50 mg tablet 50 mg PO DAILY #30 tabs 07/10/23 omeprazole 20 mg capsule,delayed 20 mg PO DAILY@0630 #30 caps 07/10/23 release potassium chloride 10 mEq 10 meq PO DAILY #30 caps 07/10/23 capsule,extended release trazodone 50 mg tablet 50 mg PO BEDTIME MRX1 PRN Insomnia 07/10/23 #60 tabs Allergies Allergy/AdvReac Type Severity Reaction Status Date / Time No Known Allergies Allergy Verified 07/24/23 05:30 Review of Systems 2 Review of Systems: Constitutional:No Fever, No Chills, No Night Sweats, No Fatigue, No Malaise ENT/Mouth: No Hearing loss, No Ear Pain, No Nasal Congestion, No sore throat, No Rhinorrhea, No Swallowing Difficulty Eyes: No Eye Pain, No Swelling, No Redness, No Vision Changes Cardiovascular: + Chest Pain, + SOB, + Dyspnea on Exertion, No Orthopnea, + Edema, No Palpitations Respiratory: No Cough, No Sputum, No Wheezing, No Smoke Exposure, No Dyspnea Gastrointestinal: + Nausea, + Vomiting, + Diarrhea, No Constipation, + Abdominal pain Genitourinary: No irregular bleeding, No Dysuria, No Urinary Frequency, No Hematuria, No Flank Pain Musculoskeletal: No joint pain, No Myalgias, No Joint Swelling Skin: No Skin Lesions, No rash Neuro: No Weakness, No Dizziness, No Headache Yes all other systems are reviewed and are negative Constitutional: Constitutional: Reports as per [facility] Past Medical History Attestation statement: The following information was validated with the patient. Source: old records reviewed Medical History Acute gastritis with bleeding Alcohol use disorder, severe, dependence Anxiety Arthritis Depression Diabetes mellitus, type 2 Herniated disc Hypertension Morbid obesity Obesity TERRIE on CPAP PTSD (post-traumatic stress disorder) Sleep apnea Systolic heart failure Family History Family History Mother Diabetes Social History Social History Household Members: None Housing: Apartment Do you presently have visiting nurse or other home services: No Alcohol intake: current Alcohol intake frequency: holidays/special occasions only Alcohol type: hard liquor Patient Tobacco Use Status: Never used Tobacco Smoked in Last 30 Days: No e-Cigarette/Vaping Use: Never Used Second Hand Smoke Exposure: No Use of substances other than those prescribed or required for medical reasons: No Substance Use Type: Other Advance Directives: No Advance Directives Information Provided: Yes service: Yes (Glycode [id number]) Current occupational status: employed Sexual orientation: Straight/Heterosexual Physical Exam ED Vital Signs: Vital Signs - 24 hr 07/24/23 05:14 07/24/23 08:13 07/24/23 08:35 Temperature 98.1 F 97.7 F Pulse Rate 105 H 118 H Respiratory Rate 24 H 18 18 Blood Pressure 162/105 H 183/118 H 148/93 H Pulse Oximetry 96 93 95 Oxygen Delivery Method Nasal Cannula Nasal Cannula Nasal Cannula Oxygen Flow Rate 3 3 07/24/23 10:00 07/24/23 10:32 Temperature 98.6 F Pulse Rate 95 96 Respiratory Rate 20 13 Blood Pressure 141/57 H 141/78 H Pulse Oximetry 97 93 Oxygen Delivery Method Nasal Cannula Nasal Cannula Oxygen Flow Rate 3 3 BMI result Body Mass Index 56.3 Const General: cooperative, no acute distress and poor hygiene Nutritional Appearance: obese Orientation/consciousness: patient oriented x3 Limitations: no limitations HENMT Head: Yes normal to inspection and Yes atraumatic Ears: hearing grossly normal bilaterally General nose exam: Normal external nose present Face and sinus: Yes normal facial exam Eyes General: appearance normal, both eyes and all related structures EOM: EOMs intact bilaterally Neck Neck: Yes normal visual inspection and Yes no meningeal signs Resp Effort & Inspection: normal respiratory effort and no respiratory distress Auscultation: clear to auscultation bilaterally, no crackles and no wheezes Cardio Rate: regular rate Heart sounds: S1 normal heart sound present and S2 normal heart sound present GI Inspection: Yes normal to inspection Palpation (GI): Soft to palpation, Tenderness to palpation present (GI) (diffusely) with no rebound tenderness, no guarding and not rigid General: Yes no CVA tenderness Back/Spine/Pelvis Back: no CVA tenderness Skin Rashes: no rashes Wounds: no wounds Neuro General: patient oriented x3, tone normal and no meningeal signs Cranial nerves: Yes CN's II-XII intact bilaterally Gait exam (Neuro): Normal gait present Extrem Other: 3+ bilateral LE pitting edema Course Course Course Narrative: -829--no leukocytosis. H&H at patient's baseline. Initial troponin 10.6 > will obtain 3 hour repeat -lactic acid 5.0 > likely from metformin, still low suspicion for severe sepsis. No evidence of infection at this time. Will avoid IVF due to fluid overload/hypoxia XR chest 2V IMPRESSION: No active cardiopulmonary disease. > will give patient home antihypertensives CT abdomen pelvis w IV con IMPRESSION: No acute abnormality in the abdomen or pelvis. > de-satted to 88% on RA > 91% when sitting upright and taking deep breaths, NC 1L re-applied -repeat lactic acid 4.8. No evidence of infection. Plan to not for further management Medications Administered Discontinued Medications Generic Name Dose Route Start Last Admin Trade Name Freq PRN Reason Stop Dose Admin Carvedilol 12.5 mg 07/24/23 08:29 07/24/23 10:01 Carvedilol 12.5 Mg Tablet PO 07/24/23 08:30 12.5 mg ONCE ONE Administration Protocol Furosemide 80 mg 07/24/23 06:50 07/24/23 07:46 Furosemide 100 Mg/10 Ml Vial IVPUSH 07/24/23 06:51 80 mg ONCE ONE Administration Protocol Hydroxyzine HCl 50 mg 07/24/23 08:29 07/24/23 10:01 Hydroxyzine Hcl 50 Mg Tablet PO 07/24/23 08:30 50 mg ONCE ONE Administration Iohexol 100 ml 07/24/23 08:28 07/24/23 08:29 Iohexol 350 Mg/Ml 100 Ml Infus..Btl IV 07/24/23 08:29 100 ml ONCE ONE Administration Losartan Potassium 25 mg 07/24/23 08:29 07/24/23 10:01 Losartan Potassium 25 Mg Tablet PO 07/24/23 08:30 25 mg ONCE ONE Administration Protocol Ondansetron HCl 4 mg 07/24/23 06:49 07/24/23 07:46 Ondansetron Hcl 4 Mg/2 Ml Vial IVPUSH 07/24/23 06:50 4 mg ONCE ONE Administration Medical Decision Making Medical Decision Making [facility] Narrative: 52-year-old male with a history of morbid obesity, TERRIE on CPAP, CHF, ETOH abuse, arthritis, PTSD, depression, anxiety, diabetes, HTN, presenting to the ED complaining of chest tightness, SOB, diffuse abdominal pain, nausea, vomiting, and diarrhea since yesterday. On exam hypertensive, tachycardic, tachypneic, 89% on RA, 91% on 2L NC, lungs CTA, bilateral LE pitting edema noted, abdomen soft diffusely tender, no rebound or guarding. Concern for CHF/fluid overload vs ACS vs viral syndrome/pneumonia. Concern for intra-abdominal pathology including diverticulitis/colitis vs appendicitis vs gastroenteritis. Rule out metabolic abnormalities. Lower suspicion for dissection, PE/DVT. Low suspicion for severe sepsis at this time Plan: EKG, labs, CXR, CT AP, UA, IV Lasix, viral testing, anticipated admission Please refer to course for remaining clinical decision making, interpretation of labs/imaging results, and discussions with consultants and/or family members. Differential Diagnosis Differential Diagnoses: The differential diagnosis associated with the presentation includes As above Admission/Observation Consideration of admission/observation: Escalation of care including admission/observation considered Consult Healthcare Provider Management of the patient was discussed with: Hospitalist Lab Data [facility] Lab Attestation statement: I reviewed the patient's lab results. 07/24/23 06:08 07/24/23 06:08 Labs: Lab Results 07/24/23 07/24/23 07/24/23 Range/Units 05:35 06:08 08:11 WBC 5.1 (4.8-10.8) X10*3/uL RBC 4.54 L (4.60-5.80) X10*6/uL Hgb 13.4 L (14.0-18.0) g/dl Hct 40.4 L (42.0-52.0) % MCV 89.0 (80.0-98.0) fL MCH 29.5 (27.0-33.0) pg MCHC 33.2 (31.0-36.0) g/dl RDW 14.6 (11.0-16.0) % Plt Count 254 (160-400) X10*3/uL MPV 9.9 (9.4-12.4) fL Immature Gran % (Auto) 0.2 (0.0-0.4) % Neut % (Auto) 55.1 (45-73) % Lymph % (Auto) 29.1 (20-40) % Christian % (Auto) 12.4 H (2-11) % Eos % (Auto) 2.0 (0-4) % Baso % (Auto) 1.2 (0-2) % Lymph # (Auto) 1.5 (1.2-4.9) X10*3/uL Christian # (Auto) 0.6 (0.1-1.2) X10*3/uL Eos # (Auto) 0.1 (0.0-0.4) X10*3/uL Baso # (Auto) 0.1 (0.0-0.2) X10*3/uL Abs Immat Gran (auto) 0.01 (0.00-0.03) X10*3/uL Absolute Neuts (auto) 2.8 (2.0-8.3) x10*3/uL Absolute Nucleated RBC 0.000 (0.0-0.012) X10*3/uL Nucleated RBC % (auto) 0.0 (0.0-0.2) /100WBC Sodium 141 (135-145) mmol/L Potassium 4.0 (3.3-5.1) mmol/L Chloride 101 (96-108) mmol/L Carbon Dioxide 28 (22-29) mmol/L Anion Gap 16 (12-20) BUN 11 (9-16) mg/dL Creatinine 0.64 (0.5-1.4) mg/dL Estim Creat Clear Calc 238.0 Estimated GFR > 60 Random Glucose 241 H (60-115) mg/dL Lactic Acid 5.0 H* (0.5-2.0) mmol/L Lactic Acid F/U @ 2Hr (0.5-2.0) mmol/L Calcium 8.1 L D (8.4-10.2) mg/dL Magnesium 1.9 (1.6-2.6) mg/dL Total Bilirubin 0.3 (0.0-1.0) mg/dL Direct Bilirubin 0.1 (0.0-0.5) mg/dL AST 20 (5-37) U/L ALT 15 (0-40) U/L Alkaline Phosphatase 79 (39-117) U/L Troponin I High Sens 10.6 (<3.5-35.0) ng/L B-Natriuretic Peptide 19 (<100) pg/mL Total Protein 7.7 (6.5-8.0) g/dL Albumin 3.7 (3.5-5.0) g/dL Lipase 17 (8-78) U/L Urine Color Urine Appearance Urine pH (5.0-9.0) Ur Specific [place] (1.005-1.025) Urine Protein (Neg-Trace) mg/dL Urine Glucose (UA) (Negative) mg/dL Urine Ketones (Negative) mg/dL Urine Blood (Negative) Urine Nitrite (Negative) Ur Leukocyte Esterase (Negative) Ethyl Alcohol 202 mg/dL COVID-19 (DIDIER) Negative (Negative) COVID-19 Clin Com See Note 07/24/23 07/24/23 07/24/23 Range/Units 08:13 09:12 10:30 WBC (4.8-10.8) X10*3/uL RBC (4.60-5.80) X10*6/uL Hgb (14.0-18.0) g/dl Hct (42.0-52.0) % MCV (80.0-98.0) fL MCH (27.0-33.0) pg MCHC (31.0-36.0) g/dl RDW (11.0-16.0) % Plt Count (160-400) X10*3/uL MPV (9.4-12.4) fL Immature Gran % (Auto) (0.0-0.4) % Neut % (Auto) (45-73) % Lymph % (Auto) (20-40) % Christian % (Auto) (2-11) % Eos % (Auto) (0-4) % Baso % (Auto) (0-2) % Lymph # (Auto) (1.2-4.9) X10*3/uL Christian # (Auto) (0.1-1.2) X10*3/uL Eos # (Auto) (0.0-0.4) X10*3/uL Baso # (Auto) (0.0-0.2) X10*3/uL Abs Immat Gran (auto) (0.00-0.03) X10*3/uL Absolute Neuts (auto) (2.0-8.3) x10*3/uL Absolute Nucleated RBC (0.0-0.012) X10*3/uL Nucleated RBC % (auto) (0.0-0.2) /100WBC Sodium (135-145) mmol/L Potassium (3.3-5.1) mmol/L Chloride (96-108) mmol/L Carbon Dioxide (22-29) mmol/L Anion Gap (12-20) BUN (9-16) mg/dL Creatinine (0.5-1.4) mg/dL Estim Creat Clear Calc Estimated GFR Random Glucose (60-115) mg/dL Lactic Acid (0.5-2.0) mmol/L Lactic Acid F/U @ 2Hr 4.8 H* (0.5-2.0) mmol/L Calcium (8.4-10.2) mg/dL Magnesium (1.6-2.6) mg/dL Total Bilirubin (0.0-1.0) mg/dL Direct Bilirubin (0.0-0.5) mg/dL AST (5-37) U/L ALT (0-40) U/L Alkaline Phosphatase (39-117) U/L Troponin I High Sens 10.4 (<3.5-35.0) ng/L B-Natriuretic Peptide (<100) pg/mL Total Protein (6.5-8.0) g/dL Albumin (3.5-5.0) g/dL Lipase (8-78) U/L Urine Color Yellow Urine Appearance Clear Urine pH 6.0 (5.0-9.0) Ur Specific [place] 1.010 (1.005-1.025) Urine Protein Negative (Neg-Trace) mg/dL Urine Glucose (UA) Negative (Negative) mg/dL Urine Ketones Negative (Negative) mg/dL Urine Blood Negative (Negative) Urine Nitrite Negative (Negative) Ur Leukocyte Esterase Negative (Negative) Ethyl Alcohol mg/dL COVID-19 (DIDIER) (Negative) COVID-19 Clin Com Independent Interpretation I performed an independent interpretation of an: EKG (EKG sinus rhythm with first-degree AV block at a rate of 85. QRS 96. QTC 506. When compared to prior incomplete right bundle-branch block is now present. No STEMI ) Radiology Impression Discussion of test interpretation with radiology: I have reviewed the radiologist's reading. Independent Historian Clinical information obtained from an independent historian. History obtained from or confirmed by: EMS External Record Review External record reviewed: Inpatient record, Office record, Outpatient record, Prior outpatient labs, Prior outpatient radiology, Primary care record and Outside ED record Tests considered The following testing was considered but not selected: As above Prescription Management I considered prescription management with: Pain Medication and Antibiotic Chronic Conditions Patient?s care impacted by: Diabetes and Hypertension Social Determinants Patient?s care significantly limited by Social Determinants of Health including: Other Social Determinant of Health Critical Care Time Critical Care Time Critical Care Time: Yes Total Critical Care Time: 50 Attestation: I have personally provided critical care time exclusive of time spent on separately billable procedures. Time includes review of lab data, radiology results, discussion with consultants, and monitoring for potential decompensation. Intervention performed as documented. Discharge Plan Discharge Clinical Impression: CHF (congestive heart failure), Abdominal pain Patient Disposition: Admitted As Inpatient
[2023-07-24 06:38] LABS: Troponin-I High Sensitivity 10.6 ng/L (<3.5-35.0)
[2023-07-24] MEDS: ondansetron HCL 4 MG/2 ML VIAL IVPUSH (07:46)
[2023-07-24] MEDS: Furosemide 100 MG/10 ML VIAL 80 MG IVPUSH (07:46)
--- NOTE | 2023-07-24 07:52 | PC.NURSE ---
two techs and this RN attempted cultures and additional lab draws, pt a hard stick. call placed to phlebotomy for assistance.
[2023-07-24 08:29] LABS: Appearance Urine Clear; Color Urine Yellow; Glucose Urine UA Negative (Negative); Leukocyte Esterase Urine Negative (Negative); Nitrite Urine Negative (Negative); Urine Blood Negative (Negative); Urine Ketones Negative (Negative); Urine Protein Negative (Neg-Trace)
[2023-07-24] MEDS: iohexoL 350 MG/ML 100 ML INFUS..BTL IV (08:29)
[2023-07-24 08:44] LABS: B Type Natriuretic Peptide 19 pg/mL (<100)
[2023-07-24 08:45] LABS: Magnesium 1.9 mg/dL (1.6-2.6)
[2023-07-24 09:28] LABS: Ethanol 202 mg/dL
[2023-07-24 09:37] LABS: Troponin-I High Sensitivity 10.4 ng/L (<3.5-35.0)
[2023-07-24] MEDS: carvediloL 12.5 MG TABLET PO ×2 (10:01→20:31)
[2023-07-24] MEDS: Losartan Potassium 25 MG TABLET PO (10:01)
[2023-07-24] MEDS: hydrOXYzine HCL 50 MG TABLET PO (10:01)
[2023-07-24 10:14] LABS: Reflex Lactate? Lactic Acid Added
[2023-07-24 10:52] LABS: ~Lactic Acid-LAB USE ONLY 4.8 mmol/L (0.5-2.0)
--- NOTE | 2023-07-24 11:25 | PC.NURSE ---
pt resting with eyes closed, O2 dropped down to 87% . placed pt on 2L NC at this time with good improvement, O2 up to 96%
[2023-07-24 11:47] LABS: Amphetamine Screen Urine Not Detected (Not Detect); Barbiturates, Urine Not Detected (Not Detect); Benzodiazepines Screen Urine Not Detected (Not Detect); Cannabinoid Screen Urine Not Detected (Not Detect); Cocaine Screen Urine Not Detected (Not Detect); Fentanyl, urine Not Detected (Not Detect); Opiate Screen Urine Not Detected (Not Detect); Phencyclidine Screen Urine Not Detected (Not Detect)
[2023-07-24 12:36] LABS: Reflex Lactate? 2 Y
--- NOTE | 2023-07-24 12:48 | PHA.MEDREC ---
Pharmacy Consult ? Medication Reconciliation Pharmacy has completed the medication reconciliation. Patient able to name some medications on his own, stated he no longer takes hydroxyzine or trazodone. Did note that he got a Vivitrol shot last month unsure of exact date. Agreeable to most other meds. States it has been a few days since he has taken anything
--- NOTE | 2023-07-24 13:00 | PC.NURSE ---
pt walked w rn 1/2 down [place] and back in ed with no o2 on puls ox- down to 89/90% with SWAN/SOB. mostly steady gait. standby assist only. TARYN mathew notified. at rst pt placed back on 2L NC o2 94% PA to nikki and is aware.alert, talking full sentences at this time.
--- NOTE | 2023-07-24 13:10 | PC.NURSE ---
pt moved into a hospital bed
--- NOTE | 2023-07-24 14:18 | P.HPHOSP_ITS ---
History of Present Illness Date of Service: 07/24/23 Attending physician on admission: Nilton Antoine Chief Complaint: Shortness of breath, chest tightness, N/V/D 52-year-old male with history of TERRIE noncompliant with CPAP, heart failure with reduced ejection fraction, history of alcohol abuse, anxiety/depression, PTSD, [id number] type 2 diabetes, hypertension, and morbid obesity with BMI greater than 56 presented to the ED earlier today for evaluation of shortness of breath and chest tightness that started around 04:00 this morning. He reports PND and orthopnea that started last night. He has also had shortness of breath at rest that worsens with exertion new since this morning. He has also been wheezing. He has not had his Lasix for about 1 week and has also noted increased swelling in the bilateral lower extremities. He is also reporting 3 episodes of diarrhea on a daily basis for the last 2 days with occasional nausea and also vomited about 4 times last night. States symptoms started after eating chicken wings. Denies any fevers or chills but has had cold sweats. He has been hospitalized several times for his alcohol dependence and [facility] Has been working on cutting back on alcohol consumption on his own at home. He states up until 3 days ago he had decreased his consumption to 3 alcoholic beverages daily and has cut back to 1 daily. He denies any other substance use. On arrival, patient has been intermittently tachycardic to 118 and noted to be clammy and admission. He was hypertensive to 160/106 and has been hypoxic to 89% on room air with ambulation and 90-91% on room air at rest now on 3 L supplemental O2. Hematology studies unremarkable. Renal function electrolyte levels normal. Glucose 241. Initial lactic acid 5.0, repeat 4.8. Troponins flat. BNP 19. Urinalysis unremarkable. Urine tox screen negative. Ethyl alcohol level to O2. Follow viral respiratory panel pending. GI panel and C diff PCR pending. Chest x-ray negative for any acute cardiopulmonary disease. CT abdomen/pelvis negative for any acute abnormality. EKG shows normal sinus rhythm, rate 85 with first-degree AV block and incomplete right bundle branch block. In the ED, given 80 mg IV Lasix. Patient reports symptomatic improvement following the Lasix and he reports he has filled nearly 3 urinals, though no output has been formally recorded. Review of Systems 2 Review of Systems: General: No fevers, malaise, unintentional weight loss HEENT: No blurred vision, diplopia. No sore throat, nasal congestion, rhinorrhea, sinus pain, ear pain Cardiovascular: No chest pain, palpitations, or leg edema Respiratory: +orthopnea, +PND, +SOB at rest, +SWAN, +wheezing. No cough GI: No abdominal pain, nausea, vomiting, diarrhea, constipation, melena, hematochezia : No dysuria, hematuria, increased urinary frequency, decreased urinary output MSK: No myalgia, back pain Neuro: No headaches, weakness, paresthesias Skin: No rashes or lesions [facility] Medical History TERRIE on CPAP Morbid obesity Acute gastritis with bleeding Systolic heart failure Alcohol use disorder, severe, dependence Herniated disc Arthritis PTSD (post-traumatic stress disorder) Depression Anxiety Obesity Sleep apnea Hypertension Diabetes mellitus, type 2 Family History Mother Diabetes Social History Household Members: None Housing: Apartment Do you presently have visiting nurse or other home services: No Alcohol intake: current Alcohol intake frequency: holidays/special occasions only Alcohol type: hard liquor Patient Tobacco Use Status: Never used Tobacco Smoked in Last 30 Days: No e-Cigarette/Vaping Use: Never Used Second Hand Smoke Exposure: No Use of substances other than those prescribed or required for medical reasons: No Substance Use Type: Other Advance Directives: No Advance Directives Information Provided: Yes service: Yes ([employer] [id number]) Current occupational status: employed Sexual orientation: Straight/Heterosexual Meds Allergies Allergy/AdvReac Type Severity Reaction Status Date / Time No Known Allergies Allergy Verified 07/24/23 05:30 Active Medications: Current Medications Acetaminophen (Acetaminophen 325 Mg Tablet) 650 mg PO Q6H PRN PRN Reason: Pain, Mild (Pain Scale 1-3) Enoxaparin Sodium (Enoxaparin Sodium 40 Mg/0.4 Ml Syringe) 40 mg SUBCUT Q24H TOBY Ondansetron HCl (Ondansetron Hcl 4 Mg/2 Ml Vial) 4 mg IVPUSH Q8H PRN PRN Reason: Nausea and Vomiting Pharmacy Consult (Consult Rx Etoh Phenob Im/Po) 1 each MISCELLANE ONCE PRN; Protocol PRN Reason: Consult order Phenobarbital (Phenobarbital 30 Mg Tablet) 60 mg PO BID TOBY; Protocol Stop: 07/26/23 21:01 Phenobarbital (Phenobarbital 30 Mg Tablet) 30 mg PO BID TOBY; Protocol Stop: 07/28/23 21:01 Phenobarbital (Phenobarbital 30 Mg Tablet) 30 mg PO DAILY TOBY; Protocol Stop: 07/30/23 09:01 Phenobarbital Sodium (Phenobarbital Sodium 130 Mg/Ml Vial Im Q3hx2) 279 mg IM Q3H TOBY; Protocol Stop: 07/24/23 19:31 Sodium Chloride (0.9 % Sodium Chloride Flush 3 Ml Syringe) 3 ml IVFLUSH QSHIFT [facility] Home Medications Medication Instructions Recorded Confirmed Last Taken Type albuterol sulfate 90 mcg/actuation 2 inh inhalation Q4H PRN Wheezing 07/24/23 07/24/23 Unknown History aerosol inhaler (Ventolin HFA) aripiprazole 5 mg tablet 5 mg PO DAILY 07/24/23 07/24/23 Unknown History atorvastatin 40 mg tablet 40 mg PO DAILY 07/24/23 07/24/23 Unknown History bupropion HCl 75 mg tablet 75 mg PO QAM 07/24/23 07/24/23 Unknown History carvedilol 12.5 mg tablet 12.5 mg PO BID 07/24/23 07/24/23 Unknown History dapagliflozin propanediol 10 mg 10 mg PO DAILY 07/24/23 07/24/23 Unknown History tablet (Farxiga) escitalopram oxalate 20 mg tablet 20 mg PO DAILY 07/24/23 07/24/23 Unknown History furosemide 40 mg tablet 40 mg PO DAILY PRN Edema 07/24/23 07/24/23 Unknown History gabapentin 100 mg capsule 100 mg PO DAILY PRN Pain 07/24/23 07/24/23 Unknown History ibuprofen 600 mg tablet 600 mg PO TID 07/24/23 07/24/23 Unknown History losartan 25 mg tablet 25 mg PO DAILY 07/24/23 07/24/23 Unknown History metformin 500 mg tablet 500 mg PO BID 07/24/23 07/24/23 Unknown History omeprazole 20 mg capsule,delayed 20 mg PO DAILY 07/24/23 07/24/23 Unknown History release potassium chloride 10 mEq 10 meq PO DAILY 07/24/23 07/24/23 Unknown History capsule,extended release Physical Exam 2 Vital Signs and Narrative: Vital Signs: Last Vital Signs Temp 97.6 F 07/24/23 14:08 Pulse 112 H 07/24/23 14:08 Resp 16 07/24/23 14:08 BP 140/101 H 07/24/23 14:08 Pulse Ox 92 07/24/23 14:08 O2 Del Method Room Air 07/24/23 14:08 O2 Flow Rate 2 07/24/23 12:28 Oxygen Flow Rate 2 07/24/23 05:14 BMI result Body Mass Index 56.3 Constitutional - Awake and Alert, No apparent distress Eyes - PERRLA, EOMI Cardiovascular - S1S2, RRR, 3+ pitting edema BLE Respiratory - Normal lung expansion, Normal respiratory effort, No respiratory distress, faint scattered expiratory wheezes bilaterally otherwise CTA Gastrointestinal - morbidly obese abdomen, NT / ND; +BS; No rebound or guarding Extremities - no calf tenderness bilaterally, no swelling Skin - Warm/Dry Neurological - Alert & oriented x3, CN II-XII in tact, 5/5 strength BUE and BLE Psychological - Appropriate affect Results Labs 07/24/23 06:08 07/24/23 06:08 Labs: Laboratory Results - last 24 hr 07/24/23 07/24/23 07/24/23 05:35 06:08 08:11 MCV 89.0 MCH 29.5 MCHC 33.2 RDW 14.6 Plt Count 254 MPV 9.9 Immature Gran % (Auto) 0.2 Neut % (Auto) 55.1 Lymph % (Auto) 29.1 [place] % (Auto) 12.4 H Eos % (Auto) 2.0 Baso % (Auto) 1.2 Lymph # (Auto) 1.5 [place] # (Auto) 0.6 Eos # (Auto) 0.1 Baso # (Auto) 0.1 Abs Immat Gran (auto) 0.01 Absolute Neuts (auto) 2.8 Absolute Nucleated RBC 0.000 Nucleated RBC % (auto) 0.0 Anion Gap 16 Estim Creat Clear Calc 238.0 Estimated GFR > 60 Random Glucose 241 H Lactic Acid 5.0 H* Lactic Acid F/U @ 2Hr Calcium 8.1 L D Magnesium 1.9 Total Bilirubin 0.3 Direct Bilirubin 0.1 AST 20 ALT 15 Alkaline Phosphatase 79 B-Natriuretic Peptide 19 Total Protein 7.7 Albumin 3.7 Lipase 17 Urine Color Urine Appearance Urine pH Ur Specific [place] Urine Protein Urine Glucose (UA) Urine Ketones Urine Blood Urine Nitrite Ur Leukocyte Esterase Urine Opiates Screen Urine Fentanyl Screen Ur Barbiturates Screen Ur Phencyclidine Scrn Ur Amphetamines Screen U Benzodiazepines Scrn Urine Cocaine Screen U Marijuana (THC) Screen Ethyl Alcohol 202 COVID-19 (DIDIER) Negative COVID-19 Clin Com See Note 07/24/23 07/24/23 08:13 10:30 MCV MCH MCHC RDW Plt Count MPV Immature Gran % (Auto) Neut % (Auto) Lymph % (Auto) [place] % (Auto) Eos % (Auto) Baso % (Auto) Lymph # (Auto) [place] # (Auto) Eos # (Auto) Baso # (Auto) Abs Immat Gran (auto) Absolute Neuts (auto) Absolute Nucleated RBC Nucleated RBC % (auto) Anion Gap Estim Creat Clear Calc Estimated GFR Random Glucose Lactic Acid Lactic Acid F/U @ 2Hr 4.8 H* Calcium Magnesium Total Bilirubin Direct Bilirubin AST ALT Alkaline Phosphatase B-Natriuretic Peptide Total Protein Albumin Lipase Urine Color Yellow Urine Appearance Clear Urine pH 6.0 Ur Specific [place] 1.010 Urine Protein Negative Urine Glucose (UA) Negative Urine Ketones Negative Urine Blood Negative Urine Nitrite Negative Ur Leukocyte Esterase Negative Urine Opiates Screen Not Detected Urine Fentanyl Screen Not Detected Ur Barbiturates Screen Not Detected Ur Phencyclidine Scrn Not Detected Ur Amphetamines Screen Not Detected U Benzodiazepines Scrn Not Detected Urine Cocaine Screen Not Detected U Marijuana (THC) Screen Not Detected Ethyl Alcohol COVID-19 (DIDIER) COVID-19 Clin Com Imaging Radiologist's Impressions: Impressions Chest X-Ray 07/24/23 06:20 IMPRESSION: No active cardiopulmonary disease. Abdomen/Pelvis CT 07/24/23 08:43 IMPRESSION: No acute abnormality in the abdomen or pelvis. Assessment and Plan (1) CHF (congestive heart failure): Status: Acute (2) Acute hypoxemic respiratory failure: Status: Acute (3) Alcohol withdrawal: Status: Acute (4) Diarrhea: Status: Acute Plan 52-year-old male with history of TERRIE noncompliant with CPAP, heart failure with reduced ejection fraction, history of alcohol abuse, anxiety/depression, PTSD, [id number]-[id number] type 2 diabetes, hypertension, and morbid obesity with BMI greater than 56 admitted for acute hypoxemia respiratory failure likely related to CHF exacerbation. # acute hypoxemic respiratory failure- secondary to acute CHF exacerbation versus viral syndrome -CXR negative, chest CT pending, full viral respiratory panel pending -continue supplemental O2 to maintain oximetry greater than 92% -VBG pending # acute CHF exacerbation -BNP normal at 19, CXR negative. Chest CT pending. Clinically symptomatic with acute orthopnea, PND, bilateral lower extremity edema and has missed his Lasix dose for about 1 week -clinically improved with 80 mg IV Lasix -continue 40 mg IV Lasix daily -cardiac diet -strict I&O -daily weights -echocardiogram ordered -monitor on telemetry # suspected viral syndrome -full viral respiratory panel pending -GI panel and C diff PCR pending -abdominal exam benign -symptomatic management # acute alcohol withdrawal -n/v could be related to viral syndrome as above or possibly etoh w/d. Noted to be clammy and tachycardic (not sepsis) on exam -monitor on CIWA -phenobarbital per protocol initiated -addiction medicine consult placed #Lactic acidosis -likely multifactorial r/t metformin, liver disease, hypoperfusion due to hypoxia # rqb-mzsljqb-hyushjapa type 2 diabetes-with hyperglycemia -hemoglobin A1c pending -diabetic diet -Humalog on sliding scale -POC glucose -hold oral antihyperglycemics # hypertension -continue home antihypertensives # TERRIE -CPAP at bedtime, noncompliant at home # mood disorder -continue home meds # morbid obesity -weight loss efforts encouraged DVT prophylaxis-Lovenox Full code Patient requires inpatient stay of at least 2 midnights for management of acute hypoxemic respiratory failure secondary to clinical CHF exacerbation now in acute alcohol withdrawal requiring phenobarbital per protocol Time Spent With Patient Time: Total time managing care of this patient today ____ minutes. Quality Stroke Does the patient have a stroke diagnosis?: No VTE Prior VTE?: No VTE Risk Level:: Medical - moderate - high VTE Device Contraindication: Treatment Not Indicated VTE Drug Contraindication: N/A - Med Ordered
[2023-07-24 14:39] LABS: Adenovirus PCR Not Detected (Not Detect.); Bordetella parapertussis PCR Not Detected (Not Detect.); Bordetella pertussis PCR Not Detected (Not Detect.); Chlamydia pneumoniae PCR Not Detected (Not Detect.); Coronavirus 229E PCR Not Detected (Not Detect.); Coronavirus HKU1 PCR Not Detected (Not Detect.); Coronavirus NL63 PCR Not Detected (Not Detect.); Coronavirus OC43 PCR Not Detected (Not Detect.); Human metapneumovirus PCR Not Detected (Not Detect.); Influenza A PCR Not Detected (Not Detect.); Influenza B PCR Not Detected (Not Detect.); Mycoplasma pneumoniae PCR Not Detected (Not Detect.); Parainfluenza 1 PCR Not Detected (Not Detect.); Parainfluenza 2 PCR Not Detected (Not Detect.); Parainfluenza 3 PCR Not Detected (Not Detect.); Parainfluenza 4 PCR Not Detected (Not Detect.); RSV PCR Not Detected (Not Detect.); Rhino/Enterovirus PCR Not Detected (Not Detect.); SARS-CoV-2 PCR Not Detected (Not Detect.)
[2023-07-24 14:47] LABS: ~Lactic Acid-LAB USE ONLY 6.1 mmol/L (0.5-2.0)
--- NOTE | 2023-07-24 15:15 | PC.NURSE ---
per pt req contacted women's lacrosse coach- nameprovided by narciso hinojosa pt req info about detox program.
--- NOTE | 2023-07-24 15:19 | PC.NURSE ---
homar ready aware elevated lactic and sent vbg
[2023-07-24] MEDS: PHENobarbitaL sodium 130 MG/ML IM ONCE 372 MG IM (15:20)
[2023-07-24] MEDS: Enoxaparin Sodium 40 MG/0.4 ML SYRINGE SUBCUT (15:26)
--- NOTE | 2023-07-24 15:30 | CA_ITS ---
Transthoracic Echocardiogram Patient (Last, First, Middle): Miguel Ángel Calderon, Gender: Male Date of : 1970 Age: 52 Procedure Date: 07/24/2023 Procedure Type: Transthoracic Echocardiogram Location: ER Height: 182.88 cm Weight: 188.24 kg BSA: 2.91 m2 Heart Rate: bpm BP: 141 / 90 mmHg Switchman: CONOR Referring MD: Judie CENTENO Symptoms: chf exacerbation Study Quality: Technically Difficult, contrast ECG Rhythm: Sinus Conclusions: - The left ventricular systolic function is moderately decreased. The visually estimated ejection fraction is between 35-40%. - No obvious valvular pathology seen on this study. Findings Procedure Information Contrast agent, definity, is being given per protocol without apparent complications. The study quality is limited by patients body habitus. Left Ventricle Normal left ventricular cavity size. There is mildly increased left ventricular wall thickness. The left ventricular systolic function is moderately decreased. The visually estimated ejection fraction is between 35 40%. There is moderate global hypokinesis. Diastolic function is normal for age. Right Ventricle Normal right ventricular cavity size. Atria Both atria are normal in size. Aortic Valve The aortic valve was not well visualized. There is no aortic valve stenosis. There is no aortic valve regurgitation. Mitral Valve The mitral valve appears normal. There is no mitral valve regurgitation. There is no mitral valve stenosis. Pulmonic Valve The pulmonic valve is likely normal. Tricuspid Valve The tricuspid valve was not well visualized. There is no tricuspid valve regurgitation. Tricuspid regurgitation envelope is inadequate for calculation of right ventricular systolic pressure. Great Vessels The asc aorta is normal in size. Venous The inferior vena cava was not well visualized. Pericardium/Pleural There is no evidence of pericardial effusion. Prior Study Comparison Changes noted compared to prior study dated: 10/04/2022. LVEF lower. Recommendations, Care & Conclusions No obvious valvular pathology seen on this study. Measurements 2D Linear Measurements IVSd: 1.09 0.6-0.9/0.6-1.0 cm LVIDd: 5.11 3.9-5.3/4.2-5.9 cm LVIDd Index: 1.76 2.4-3.2/2.2-3.1 cm/m2 LVIDs: 3.92 2.0-3.6 cm LVPWd: 1.27 0.7-1.1 cm LA Diam: 3.20 2.7-3.8/3.0-4.0 cm LAIDs Index: 1.10 1.5-2.3 cm/m2 LV Mass: 294.74 67-162/88-224 g LV Mass Index: 101.28 43-95/49-115 g/m2 LVOT Diam: 2.80 3.0+(-)1.3 cm 2D Systolic Function EF 4C: 42.30 >55% Mitral Valve MV Pk E: 0.54 MV PK A: 0.64 MV Decel Time: 140.00 E/A: 0.80 E'Medial: 6.96 E/E' Med: 7.80 PHT: 41.00 MVA PHT: 5.37 Decel [place]: 3.87 Aortic Valve AoV Pk Brian: 1.03 AoV Mn Brian: 0.74 AoV VTI: 0.20 AoV Pk Grad: 4.00 Aov Mn Grad: 2.00 ANNI Cont.VTI: 4.39 LVOT LVOT Pk Brian: 0.71 LVOT Mn Brian: 0.48 LVOT VTI: 0.14 LVOT Pk Grad: 2.00 LVOT Mn Grad: 1.00 LVOT Diam: 2.80 LVOT Area: 6.16 Diastolic Function MV Pk E: 0.54 MV Pk A: 0.64 E/A: 0.80 E'Medial: 6.96 E/E' Med: 7.80 Right Ventricle TAPSE (mm): 22.00 TVS' Brian: 12.30 Great Vessels Aorta Sinus of Valsalva: 4.18 2.0-3.5 cm Ao Asc: 3.90 2.1-3.4 cm Updated in Other Vendor System with Status of Final Ilan Waldrop MD electronically signed on 07/25/2023 10:20:41 AM with status of Final
--- NOTE | 2023-07-24 15:35 | PC.NURSE ---
att to titrate to RA and 1L NC but need 2L as pt 92/93. 94-95% on 2L NC
[2023-07-24 15:37] LABS: CDiff Gene PCR NEGATIVE (Negative)
[2023-07-24] MEDS: PHENobarbitaL sodium 130 MG/ML VIAL IM Q3Hx2 279 MG IM ×2 (17:23→20:32)
[2023-07-24 17:26] LABS: Adenovirus F 40/41 Not Detected (Not Detect.); Astrovirus Not Detected (Not Detect.); Campylobacter Not Detected (Not Detect.); Cryptosporidium Not Detected (Not Detect.); Cyclospora cayetanensis Not Detected (Not Detect.); E. coli EAEC Not Detected (Not Detect.); E. coli EPEC Not Detected (Not Detect.); E. coli ETEC Not Detected (Not Detect.); E. coli STEC Not Detected (Not Detect.); Entamoeba histolytica Not Detected (Not Detect.); Giardia lamblia Not Detected (Not Detect.); Norovirus GI/GII Not Detected (Not Detect.); Plesiomonas shigelloides Not Detected (Not Detect.); Rotavirus A Not Detected (Not Detect.); Salmonella Not Detected (Not Detect.); Shigella sp./EIEC Not Detected (Not Detect.); Vibrio Not Detected (Not Detect.); Vibrio Cholerae Not Detected (Not Detect.); Yersinia enterocolitica Not Detected (Not Detect.)
[2023-07-24 17:27] LABS: Sapovirus Not Detected (Not Detect.)
[2023-07-24 17:45] LABS: Glucose, Whole Blood 196 mg/dL (60-115)
[2023-07-24] MEDS: Insulin Lispro 100 UNIT/ML 3 ML VIAL SUBCUT ×2 (18:50→21:31)
--- NOTE | 2023-07-24 18:53 | PC.NURSE ---
pt eating sandwhich and po fluids. talking well.
--- NOTE | 2023-07-24 19:00 | PC.NURSE ---
neuro dnp at bedside to eval- talking, airway intact. +CMS stable o2
[2023-07-24] MEDS: Acetaminophen 325 MG TABLET 650 MG PO (19:46)
[2023-07-24] MEDS: Calcium Carbonate 750 MG TAB.CHEW 1500 MG PO (20:40)
[2023-07-24 21:23] LABS: Glucose, Whole Blood 167 mg/dL (60-115)
[2023-07-25] VITALS (7 sets, daily range): BP systolic 122–144; BP diastolic 79–96; PULSE 89–99; RESP 16–20; TEMP 36–36.3; O2SAT 91–96
[2023-07-25] MEDS: 0.9 % Sodium Chloride Flush 3 ML SYRINGE IVFLUSH ×4 (00:44→20:30)
--- NOTE | 2023-07-25 04:25 | PC.NURSE ---
PATIENT ON TELE-MONITOR AND DENTAL LABORATORY TECHNICIAN APPRENTICE SENT MESSAGE AT 0340 OF SEEING BIGEMINY ON STRIP, [address] WITH PVCS, THEREAFTER. HOSPITALIST ON DUTY ALERTED VIA TIGER TEXT WITH PHOTO OF STRIP. NURSING INSTALLATIONS INSPECTOR ALSO UPDATED. PATIENT RESTING QUIETLY WITH CPAP IN USE, NO NOTED DISTRESS. VITALS PRIOR 134/79-93-20-97.1, 94%. WILL CONTINUE TO MONITOR CLOSELY. , AND [facility] [place] DENTAL LABORATORY TECHNICIAN APPRENTICE WATCHING DECORATING KILN OPERATOR.
[2023-07-25 06:12] LABS: MANUAL DIFF FLAG NO
[2023-07-25 06:16] LABS: Basophils Absolute Auto 0.1 X10*3/uL (0.0-0.2); Basophils Percent Auto 0.8 % (0-2); Eosinophils Absolute Auto 0.1 X10*3/uL (0.0-0.4); Eosinophils Percent Auto 1.7 % (0-4); Hemoglobin 14.8 g/dl (14.0-18.0); Imm Gran Abs Auto 0.02 X10*3/uL (0.00-0.03); Imm Gran Pct Auto 0.3 % (0.0-0.4); Lymphocytes Absolute Auto 1.7 X10*3/uL (1.2-4.9); Lymphocytes Percent Auto 23.4 % (20-40); Mean Corpuscular HGB Conc 32.9 g/dl (31.0-36.0); Mean Corpuscular Hemoglobin 29.4 pg (27.0-33.0); Mean Corpuscular Volume 89.5 fL (80.0-98.0); Mean Platelet Volume 10.1 fL (9.4-12.4); Monocytes Absolute Auto 0.8 X10*3/uL (0.1-1.2); Monocytes Percent Auto 10.8 % (2-11); Neutrophils Absolute Auto 4.5 x10*3/uL (2.0-8.3); Platelet Count 263 X10*3/uL (160-400); Red Blood Count 5.03 X10*6/uL (4.60-5.80); White Blood Count 7.1 X10*3/uL (4.8-10.8)
[2023-07-25] MEDS: Omeprazole 20 MG CAPSULE.DR PO (06:31)
[2023-07-25 06:32] LABS: Anion Gap 17 (12-20); Blood Urea Nitrogen 10 mg/dL (9-16); Calcium 8.7 mg/dL (8.4-10.2); Carbon Dioxide 28 mmol/L (22-29); Chloride 95 mmol/L (96-108); Estimated Glomerular Filt Rate > 60; Glucose Random 198 mg/dL (60-115); Potassium 3.3 mmol/L (3.3-5.1); Sodium 137 mmol/L (135-145)
[2023-07-25 06:39] LABS: B Type Natriuretic Peptide 51 pg/mL (<100)
[2023-07-25 07:11] LABS: Glucose, Whole Blood 196 mg/dL (60-115)
[2023-07-25] MEDS: Insulin Lispro 100 UNIT/ML 3 ML VIAL SUBCUT ×4 (07:33→20:29)
[2023-07-25] MEDS: Furosemide 40 MG/4 ML VIAL IVPUSH (07:33)
[2023-07-25] MEDS: PHENobarbitaL 30 MG TABLET 60 MG PO ×2 (07:35→20:29)
[2023-07-25] MEDS: ARIPiprazole 5 MG TABLET PO (07:36)
[2023-07-25] MEDS: buPROPion HCL 75 MG TABLET PO (07:36)
[2023-07-25] MEDS: Escitalopram Oxalate 20 MG TABLET PO (07:36)
[2023-07-25] MEDS: Losartan Potassium 25 MG TABLET PO (07:36)
[2023-07-25] MEDS: Potassium Chloride ER 10 MEQ TABLET.ER PO (07:36)
[2023-07-25] MEDS: Atorvastatin Calcium 40 MG TABLET PO (07:36)
[2023-07-25] MEDS: carvediloL 12.5 MG TABLET PO ×2 (07:36→20:29)
--- NOTE | 2023-07-25 10:52 | PC.NURSE ---
pt steady on feet , pt refusing high fall risk precautions , pt on high fall risk due to ciwa , CIWA scale is a 4 just for sweating .
[2023-07-25 11:23] LABS: Glucose, Whole Blood 264 mg/dL (60-115)
--- NOTE | 2023-07-25 11:31 | P.PNIM_ITS ---
Subjective Subjective Date of Service: 07/25/23 Interval History: ongoing diarrhea Physical Exam 2 Vital Signs: Vital Signs: Last Vital Signs Temp 96.8 F 07/25/23 07:32 Pulse 99 07/25/23 07:32 Resp 16 07/25/23 07:32 BP 144/94 H 07/25/23 07:32 Pulse Ox 95 07/25/23 07:32 O2 Del Method CPAP 07/25/23 07:32 O2 Flow Rate 2 07/24/23 19:44 Oxygen Flow Rate 2 07/24/23 05:14 BMI result Body Mass Index 56.3 General: AO X 3, no acute distress Resp: CTA bilateral, no accessory muscles used CVS: S1,S2,RRR GI: soft, non tender, non distended Neuro: motor grossly intact, alert Psych: appropriate affect, appropriate insight Objective Data Active Medications Acetaminophen (Acetaminophen 325 Mg Tablet) 650 mg PO Q6H PRN PRN Reason: Pain, Mild (Pain Scale 1-3) Last Admin: 07/24/23 19:46 Dose: 650 mg Documented By: TYRON Albuterol Sulfate (Albuterol Sulfate 90 Mcg 8 Gm Inhaler) 2 puff INHALE Q4H PRN PRN Reason: Wheezing Aripiprazole (Aripiprazole 5 Mg Tablet) 5 mg PO DAILY [facility] Last Admin: 07/25/23 07:36 Dose: 5 mg Documented By: CHRISTI Atorvastatin Calcium (Atorvastatin Calcium 40 Mg Tablet) 40 mg PO DAILY [facility] Last Admin: 07/25/23 07:36 Dose: 40 mg Documented By: CHRISTI Bupropion HCl (Bupropion Hcl 75 Mg Tablet) 75 mg PO DAILY [facility] Last Admin: 07/25/23 07:36 Dose: 75 mg Documented By: CHRISTI Carvedilol (Carvedilol 12.5 Mg Tablet) 12.5 mg PO BID [facility]; Protocol Last Admin: 07/25/23 07:36 Dose: 12.5 mg Documented By: CHRISTI Dextrose (Dextrose 50 % 25 Gm/50 Ml Syringe) 25 gm IVPUSH Q15M PRN; Protocol PRN Reason: per Hypoglycemia Standing Ord. Enoxaparin Sodium (Enoxaparin Sodium 40 Mg/0.4 Ml Syringe) 40 mg SUBCUT Q24H [facility] Last Admin: 07/24/23 15:26 Dose: 40 mg Documented By: TYRON Escitalopram Oxalate (Escitalopram Oxalate 20 Mg Tablet) 20 mg PO DAILY [facility] Last Admin: 07/25/23 07:36 Dose: 20 mg Documented By: CHRISTI Furosemide (Furosemide 40 Mg/4 Ml Vial) 40 mg IVPUSH DAILY [facility]; Protocol Last Admin: 07/25/23 07:33 Dose: 40 mg Documented By: CHRISTI Gabapentin (Gabapentin 100 Mg Capsule) 100 mg PO DAILY PRN PRN Reason: Pain, Moderate(Pain Scale 4-6) Glucose (Glucose Gel 15 Gm Gel..Gram.) 15 gm PO Q15M PRN; Protocol PRN Reason: per Hypoglycemia Standing Ord. Insulin Human Lispro (Insulin Lispro 100 Unit/Ml 3 Ml Vial) 0 unit SUBCUT QIDACHS [facility]; Protocol Last Admin: 07/25/23 07:33 Dose: 2 unit Documented By: CHRISTI Loperamide HCl (Loperamide Hcl 2 Mg Capsule) 2 mg PO Q4H PRN PRN Reason: Diarrhea Losartan Potassium (Losartan Potassium 25 Mg Tablet) 25 mg PO DAILY [facility]; Protocol Last Admin: 07/25/23 07:36 Dose: 25 mg Documented By: CHRISTI Omeprazole (Omeprazole 20 Mg Capsule.Dr) 20 mg PO DAILY@0630 [facility] Last Admin: 07/25/23 06:31 Dose: 20 mg Documented By: JESICA Ondansetron HCl (Ondansetron Hcl 4 Mg/2 Ml Vial) 4 mg IVPUSH Q8H PRN PRN Reason: Nausea and Vomiting Pharmacy Consult (Consult Rx Etoh Phenob Im/Po) 1 each MISCELLANE ONCE PRN; Protocol PRN Reason: Consult order Phenobarbital (Phenobarbital 30 Mg Tablet) 60 mg PO BID [facility]; Protocol Stop: 07/26/23 21:01 Last Admin: 07/25/23 07:35 Dose: 60 mg Documented By: CHRISTI Phenobarbital (Phenobarbital 30 Mg Tablet) 30 mg PO BID [facility]; Protocol Stop: 07/28/23 21:01 Phenobarbital (Phenobarbital 30 Mg Tablet) 30 mg PO DAILY [facility]; Protocol Stop: 07/30/23 09:01 Potassium Chloride (Potassium Chloride Er 10 Meq Tablet.Er) 10 meq PO DAILY [facility] Last Admin: 07/25/23 07:36 Dose: 10 meq Documented By: CHRISTI Sodium Chloride (0.9 % Sodium Chloride Flush 3 Ml Syringe) 3 ml IVFLUSH QSHIFT TOBY Last Admin: 07/25/23 07:36 Dose: 3 ml Documented By: CHRISTI Labs 07/25/23 06:07 07/25/23 06:07 Labs: Laboratory Results - last 24 hr 07/24/23 07/24/23 07/24/23 06:08 08:13 11:38 MCV MCH MCHC RDW Plt Count MPV Immature Gran % (Auto) Neut % (Auto) Lymph % (Auto) [place] % (Auto) Eos % (Auto) Baso % (Auto) Lymph # (Auto) [place] # (Auto) Eos # (Auto) Baso # (Auto) Abs Immat Gran (auto) Absolute Neuts (auto) Absolute Nucleated RBC Nucleated RBC % (auto) Anion Gap Estim Creat Clear Calc Estimated GFR POC Glucose Random Glucose Estimat Average Glucose Cancelled Hemoglobin A1c % Cancelled Lactic Acid F/U @ 4Hr Calcium B-Natriuretic Peptide Stl C. cayetanensis PCR Stool Rotavirus A PCR Stl Adenov F 40/41 PCR Stool Astrovirus (PCR) Stool Campylobacter PCR Stool Cryptosporidium PCR Stl Sh Tox Pr E STEC PCR Stool E coli O157 PCR Stl Enterotoxigenic E PCR Stool EPEC (PCR) Stool EAEC (PCR) Stl E. histolytica PCR Stool Giardia Lamblia PCR Stl P. shigelloides PCR Stool Salmonella PCR Stool Sapovirus (PCR) Stl Shigella/EIEC PCR St Y.enterocolitica PCR Stool Vibrio (PCR) Stl Vibrio cholerae PCR Stl Norovirus GI/GII PCR Urine Opiates Screen Not Detected Urine Fentanyl Screen Not Detected Ur Barbiturates Screen Not Detected Ur Phencyclidine Scrn Not Detected Ur Amphetamines Screen Not Detected U Benzodiazepines Scrn Not Detected Urine Cocaine Screen Not Detected U Marijuana (THC) Screen Not Detected Respiratory Panel Gaming See Note Adenovirus (Rapid PCR) Not Detected B.pert (TEM-PCR) Not Detected B.parapertussis DNA PCR Not Detected C. pneumoniae DNA (PCR) Not Detected C. difficile Tox B Gene Coronavirus OC43 (PCR) Not Detected Coronavirus HKU1 (PCR) Not Detected Coronavirus 229E (PCR) Not Detected Coronavirus NL63 (PCR) Not Detected Human Metapneumovir PCR Not Detected Influenza A (RT-PCR) Not Detected Influenza B (RT-PCR) Not Detected M. pneumoniae (PCR) Not Detected Parainfluenza 1 (PCR) Not Detected Parainfluenza 2 (PCR) Not Detected Parainfluenza 3 (PCR) Not Detected Parainfluenza 4 (PCR) Not Detected RSV (PCR) Not Detected Entero/Rhino (PCR) Not Detected SARS-CoV-2 RNA (RT-PCR) Not Detected 07/24/23 07/24/23 07/24/23 14:21 17:42 21:20 MCV MCH MCHC RDW Plt Count MPV Immature Gran % (Auto) Neut % (Auto) Lymph % (Auto) [place] % (Auto) Eos % (Auto) Baso % (Auto) Lymph # (Auto) [place] # (Auto) Eos # (Auto) Baso # (Auto) Abs Immat Gran (auto) Absolute Neuts (auto) Absolute Nucleated RBC Nucleated RBC % (auto) Anion Gap Estim Creat Clear Calc Estimated GFR POC Glucose 196 H 167 H Random Glucose Estimat Average Glucose Hemoglobin A1c % Lactic Acid F/U @ 4Hr 6.1 H* Calcium B-Natriuretic Peptide Stl C. cayetanensis PCR Not Detected Stool Rotavirus A PCR Not Detected Stl Adenov F 40/41 PCR Not Detected Stool Astrovirus (PCR) Not Detected Stool Campylobacter PCR Not Detected Stool Cryptosporidium PCR Not Detected Stl Sh Tox Pr E STEC PCR Not Detected Stool E coli O157 PCR Not applicable Stl Enterotoxigenic E PCR Not Detected Stool EPEC (PCR) Not Detected Stool EAEC (PCR) Not Detected Stl E. histolytica PCR Not Detected Stool Giardia Lamblia PCR Not Detected Stl P. shigelloides PCR Not Detected Stool Salmonella PCR Not Detected Stool Sapovirus (PCR) Not Detected Stl Shigella/EIEC PCR Not Detected St Y.enterocolitica PCR Not Detected Stool Vibrio (PCR) Not Detected Stl Vibrio cholerae PCR Not Detected Stl Norovirus GI/GII PCR Not Detected Urine Opiates Screen Urine Fentanyl Screen Ur Barbiturates Screen Ur Phencyclidine Scrn Ur Amphetamines Screen U Benzodiazepines Scrn Urine Cocaine Screen U Marijuana (THC) Screen Respiratory Panel Gaming Adenovirus (Rapid PCR) B.pert (TEM-PCR) B.parapertussis DNA PCR C. pneumoniae DNA (PCR) C. difficile Tox B Gene NEGATIVE Coronavirus OC43 (PCR) Coronavirus HKU1 (PCR) Coronavirus 229E (PCR) Coronavirus NL63 (PCR) Human Metapneumovir PCR Influenza A (RT-PCR) Influenza B (RT-PCR) M. pneumoniae (PCR) Parainfluenza 1 (PCR) Parainfluenza 2 (PCR) Parainfluenza 3 (PCR) Parainfluenza 4 (PCR) RSV (PCR) Entero/Rhino (PCR) SARS-CoV-2 RNA (RT-PCR) 07/25/23 07/25/23 07/25/23 06:07 06:58 11:05 MCV 89.5 MCH 29.4 MCHC 32.9 RDW 15.0 Plt Count 263 MPV 10.1 Immature Gran % (Auto) 0.3 Neut % (Auto) 63.0 Lymph % (Auto) 23.4 [place] % (Auto) 10.8 Eos % (Auto) 1.7 Baso % (Auto) 0.8 Lymph # (Auto) 1.7 [place] # (Auto) 0.8 Eos # (Auto) 0.1 Baso # (Auto) 0.1 Abs Immat Gran (auto) 0.02 Absolute Neuts (auto) 4.5 Absolute Nucleated RBC 0.000 Nucleated RBC % (auto) 0.0 Anion Gap 17 Estim Creat Clear Calc 203.0 Estimated GFR > 60 POC Glucose 196 H 264 H Random Glucose 198 H Estimat Average Glucose Hemoglobin A1c % Lactic Acid F/U @ 4Hr Calcium 8.7 D B-Natriuretic Peptide 51 Stl C. cayetanensis PCR Stool Rotavirus A PCR Stl Adenov F 40/41 PCR Stool Astrovirus (PCR) Stool Campylobacter PCR Stool Cryptosporidium PCR Stl Sh Tox Pr E STEC PCR Stool E coli O157 PCR Stl Enterotoxigenic E PCR Stool EPEC (PCR) Stool EAEC (PCR) Stl E. histolytica PCR Stool Giardia Lamblia PCR Stl P. shigelloides PCR Stool Salmonella PCR Stool Sapovirus (PCR) Stl Shigella/EIEC PCR St Y.enterocolitica PCR Stool Vibrio (PCR) Stl Vibrio cholerae PCR Stl Norovirus GI/GII PCR Urine Opiates Screen Urine Fentanyl Screen Ur Barbiturates Screen Ur Phencyclidine Scrn Ur Amphetamines Screen U Benzodiazepines Scrn Urine Cocaine Screen U Marijuana (THC) Screen Respiratory Panel Gaming Adenovirus (Rapid PCR) B.pert (TEM-PCR) B.parapertussis DNA PCR C. pneumoniae DNA (PCR) C. difficile Tox B Gene Coronavirus OC43 (PCR) Coronavirus HKU1 (PCR) Coronavirus 229E (PCR) Coronavirus NL63 (PCR) Human Metapneumovir PCR Influenza A (RT-PCR) Influenza B (RT-PCR) M. pneumoniae (PCR) Parainfluenza 1 (PCR) Parainfluenza 2 (PCR) Parainfluenza 3 (PCR) Parainfluenza 4 (PCR) RSV (PCR) Entero/Rhino (PCR) SARS-CoV-2 RNA (RT-PCR) Microbiology Microbiology Results: Microbiology 07/24/23 08:10 Blood Culture - Preliminary Blood - Venous No growth after 24 hours. 07/24/23 08:11 Blood Culture - Preliminary Blood - Venous No growth after 24 hours. Assessment and Plan (1) Diarrhea: Status: Acute Plan 52M PMH morbid obesity, TERRIE, chronic systolic CHF, alcohol dependence, mood disorder, PTSD, diabetes, hypertension presented with shortness of breath and diarrhea Acute hypoxic respiratory failure secondary to acute on chronic systolic CHF IV Lasix Wean O2 as tolerated Diarrhea illness Negative for C diff Imodium as needed Alcohol dependence with withdrawal Phenobarbital Diabetes with hyperglycemia Insulin Hypertension losartan TERRIE CPAP at night, patient noncompliant Morbid obesity Weight loss recommended DVT prophylaxis with Lovenox Full code reason for continued hospitalization:ongoin diarrhea, hpyoxia Time Spent With Patient Time: Total time managing care of this patient today ____ minutes. Quality Stroke Does the patient have a stroke diagnosis?: No VTE Prior VTE?: No VTE Risk Level:: Medical - moderate - high VTE Device Contraindication: Treatment Not Indicated VTE Drug Contraindication: N/A - Med Ordered
--- NOTE | 2023-07-25 12:03 | MHC.CM.PN ---
IMM DELIVERED PT LIVES ALONE. INDEPENDENT BUT DOES USE A CANE/WALKER NEEDED. USES C PAP AT [facility], VENDOR IS RESMED. +COVID VAX +HCP BUT UNSURE WHERE IT IS? MAY DO A NEW ONE WHILE HERE. PCP DR. OCONNELL AT [place]. DP: HOME, NO SERVICES ANTICIPATED. PT WILL NEED [facility] SHUTTLE OR LYFT RIDE HOME. CM WILL CONTINUE TO FOLLOW FOR ANY CHANGE IN DC PLAN/NEEDS
--- NOTE | 2023-07-25 14:37 | MHC.RECOVRN ---
Addendum entered by Sis Fallon RN 07/26/23 10:25: This conventional mortgage underwriter asked to come back and speak with pt about CSS referral. Pt now declining CSS referral stating he has been dropped by multipple CSS because he utilizes a CPAP at night. Pt reporting his plan is to reach out to his caseworker to see if he can get set back up with [facility] for TSS. T/w stressed to pt that he can call the [facility] if he reaches barriers with his treatment, or if he would like to continue the vivitrol. Pt agreeable and thankful for the help, happy about receiving list of AA meetings. Addendum entered by Sis Fallon RN 07/26/23 10:03: Pt expressing that he would like to be referred to [facility]. Plan to start the referral process. Pt provided with folder of resources including LISS providers. Pt reports that he received vivitrol here approx 6 weeks ago on a prior admission, and is agreeable to exploring continuing the injection. Pt provided with a list out outpatient LISS providers. Original Note: T/w met with pt to assess recovery goals. Pt reports that he had a parent coach in the community -[place]car[place], who was working with him and [facility] Pt reports he was all set to go to the program and they notified him that he was not medically stable enough for them to take him. Pt expressing desire for a CSS level of care, states he was set up with IOP with [facility], but did not want to go because he felt as though he would fall through the cracks . Pt feels as though withdrawal symptoms are being managed well, reports the phenobarb upsets his stomach. Plan to follow up with pt with recovery options, pt aware and agreeable.
[2023-07-25] MEDS: Enoxaparin Sodium 40 MG/0.4 ML SYRINGE SUBCUT (15:20)
[2023-07-25 16:19] LABS: Glucose, Whole Blood 258 mg/dL (60-115)
[2023-07-25 20:24] LABS: Glucose, Whole Blood 210 mg/dL (60-115)
[2023-07-26] VITALS: BP 144/73; PULSE 93; RESP 18; TEMP 36.1; O2SAT 97
[2023-07-26 03:17] VITALS: BP 109/59; PULSE 89; RESP 18; TEMP 36.3; O2SAT 95
--- NOTE | 2023-07-26 05:08 | PC.NURSE ---
pt had an episode of bigeminy. pt asymptomatic and vital signs stable. Dr. Krzysztof montano.
[2023-07-26 06:12] LABS: Hemoglobin 14.4 g/dl (14.0-18.0); Mean Corpuscular HGB Conc 32.7 g/dl (31.0-36.0); Mean Corpuscular Hemoglobin 29.3 pg (27.0-33.0); Mean Corpuscular Volume 89.6 fL (80.0-98.0); Mean Platelet Volume 9.9 fL (9.4-12.4); Platelet Count 246 X10*3/uL (160-400); Red Blood Count 4.91 X10*6/uL (4.60-5.80); Red Cell Distribution Width 14.6 % (11.0-16.0); White Blood Count 5.6 X10*3/uL (4.8-10.8)
[2023-07-26 06:25] LABS: Anion Gap 13 (12-20); Blood Urea Nitrogen 9 mg/dL (9-16); Calcium 8.6 mg/dL (8.4-10.2); Carbon Dioxide 31 mmol/L (22-29); Chloride 96 mmol/L (96-108); Creatinine Clr Calc Pharmacy 217.6; Estimated Glomerular Filt Rate > 60; Glucose Fasting 159 mg/dL (60-99); Magnesium 1.7 mg/dL (1.6-2.6); Sodium 137 mmol/L (135-145)
[2023-07-26] MEDS: Omeprazole 20 MG CAPSULE.DR PO (06:26)
[2023-07-26 07:22] VITALS: BP 119/81; PULSE 95; RESP 18; TEMP 36.3; O2SAT 92
[2023-07-26 07:27] LABS: Glucose, Whole Blood 234 mg/dL (60-115)
[2023-07-26] MEDS: Insulin Lispro 100 UNIT/ML 3 ML VIAL SUBCUT (07:48)
[2023-07-26] MEDS: buPROPion HCL 75 MG TABLET PO (07:49)
[2023-07-26] MEDS: PHENobarbitaL 30 MG TABLET 60 MG PO (07:49)
[2023-07-26] MEDS: Potassium Chloride ER 20 MEQ TAB.ER.PRT 40 MEQ PO (07:49)
[2023-07-26] MEDS: ARIPiprazole 5 MG TABLET PO (07:50)
[2023-07-26] MEDS: Atorvastatin Calcium 40 MG TABLET PO (07:50)
[2023-07-26] MEDS: carvediloL 12.5 MG TABLET PO (07:50)
[2023-07-26] MEDS: Escitalopram Oxalate 20 MG TABLET PO (07:50)
[2023-07-26] MEDS: Losartan Potassium 25 MG TABLET PO (07:50)
[2023-07-26] MEDS: Potassium Chloride ER 10 MEQ TABLET.ER PO (07:51)
[2023-07-26] MEDS: 0.9 % Sodium Chloride Flush 3 ML SYRINGE IVFLUSH (07:55)
--- NOTE | 2023-07-26 09:23 | PM.DS ---
DS: Providers Provider Date of Service: 07/26/23 Date of admission: 07/24/23 14:13 Primary care physician: Ruddy Gregorio NP Consults: 07/24/23 14:34 Addiction Medicine Routine Consulting Provider: Addiction Covering Reason for consultation: etoh dependence, withdrawal DS: Diagnosis Discharge Diagnosis (1) Diarrhea: Status: Acute DS: Summary Hospital Course Hospital Course: from initial hpi: 52-year-old male with history of TERRIE noncompliant with CPAP, heart failure with reduced ejection fraction, history of alcohol abuse, anxiety/depression, PTSD, [id number] type 2 diabetes, hypertension, and morbid obesity with BMI greater than 56 presented to the ED earlier today for evaluation of shortness of breath and chest tightness that started around 04:00 this morning. He reports PND and orthopnea that started last night. He has also had shortness of breath at rest that worsens with exertion new since this morning. He has also been wheezing. He has not had his Lasix for about 1 week and has also noted increased swelling in the bilateral lower extremities. He is also reporting 3 episodes of diarrhea on a daily basis for the last 2 days with occasional nausea and also vomited about 4 times last night. States symptoms started after eating chicken wings. Denies any fevers or chills but has had cold sweats. He has been hospitalized several times for his alcohol dependence and was [facility]. Has been working on cutting back on alcohol consumption on his own at home. He states up until 3 days ago he had decreased his consumption to 3 alcoholic beverages daily and has cut back to 1 daily. He denies any other substance use. On arrival, patient has been intermittently tachycardic to 118 and noted to be clammy and admission. He was hypertensive to 160/106 and has been hypoxic to 89% on room air with ambulation and 90-91% on room air at rest now on 3 L supplemental O2. Hematology studies unremarkable. Renal function electrolyte levels normal. Glucose 241. Initial lactic acid 5.0, repeat 4.8. Troponins flat. BNP 19. Urinalysis unremarkable. Urine tox screen negative. Ethyl alcohol level to O2. Follow viral respiratory panel pending. GI panel and C diff PCR pending. Chest x-ray negative for any acute cardiopulmonary disease. CT abdomen/pelvis negative for any acute abnormality. EKG shows normal sinus rhythm, rate 85 with first-degree AV block and incomplete right bundle branch block. In the ED, given 80 mg IV Lasix. Patient reports symptomatic improvement following the Lasix and he reports he has filled nearly 3 urinals, though no output has been formally recorded. hospital course: Patient was admitted for acute hypoxic respiratory failure secondary to acute on chronic systolic CHF. He was treated with IV Lasix and diuresed well. He was weaned off oxygen. For his diarrheal illness he tested negative for C diff and other PCR. His diarrhea resolved. For diabetes with hyperglycemia he was treated with insulin. Probable dependence with withdrawal is treated with phenobarbital. Hypertension was treated with losartan. For obstructive sleep apnea he uses CPAP at night. For morbid obesity weight loss recommended. Patient is feeling better will be discharged home. Time Spent with Patient Time attestation: Total time managing care of this patient today ____ minutes. Discharge coordination time: Greater than 30 minutes Quality: Safe Use of Opioids Does Pt have an Active Cancer Diagnosis on the Problem List?: No Quality: Stroke Does the patient have a stroke diagnosis?: No Physical Exam Vital Signs: Vital Signs: Last Vital Signs Temp 97.4 F 07/26/23 07:22 Pulse 95 07/26/23 07:22 Resp 18 07/26/23 07:22 BP 119/81 07/26/23 07:22 Pulse Ox 92 07/26/23 07:22 O2 Del Method Room Air 07/26/23 07:22 O2 Flow Rate 2 07/24/23 19:44 Oxygen Flow Rate 2 07/24/23 05:14 BMI result Body Mass Index 56.3 General: AO X 3, no acute distress Resp: CTA bilateral, no accessory muscles used CVS: S1,S2,RRR GI: soft, non tender, non distended Neuro: motor grossly intact, alert Psych: appropriate affect, appropriate insight DS: Data Data Completed and Pending Labs on day of discharge: Laboratory Results - last 24 hr 07/25/23 07/25/23 07/25/23 11:05 16:15 20:08 WBC RBC Hgb Hct MCV MCH MCHC RDW Plt Count MPV Absolute Nucleated RBC Nucleated RBC % (auto) Sodium Potassium Chloride Carbon Dioxide Anion Gap BUN Creatinine Estim Creat Clear Calc Estimated GFR POC Glucose 264 H 258 H 210 H Fasting Glucose Calcium Magnesium 07/26/23 07/26/23 05:56 07:21 WBC 5.6 RBC 4.91 Hgb 14.4 Hct 44.0 MCV 89.6 MCH 29.3 MCHC 32.7 RDW 14.6 Plt Count 246 MPV 9.9 Absolute Nucleated RBC 0.000 Nucleated RBC % (auto) 0.0 Sodium 137 Potassium 3.0 L Chloride 96 Carbon Dioxide 31 H Anion Gap 13 BUN 9 Creatinine 0.70 Estim Creat Clear Calc 217.6 Estimated GFR > 60 POC Glucose 234 H Fasting Glucose 159 H Calcium 8.6 Magnesium 1.7 Preliminary micro results at discharge 07/24/23 08:10 Blood Culture - Preliminary Blood - Venous No growth after 24 hours. 07/24/23 08:11 Blood Culture - Preliminary Blood - Venous No growth after 24 hours. Discharge Plan Discharge Anticipated Discharge Date/Time: 07/26/23 09:18 Patient Disposition: Home, Self-Care Discharge Diagnosis: etoh withdrawal, chf, diarrhea Referrals: Ruddy Gregorio, ORTHODONTIC TECHNICIAN ASSISTANT [Primary Care Provider] - 1 Week Discharge Medications: Continued furosemide 40 mg tablet 40 mg PO DAILY PRN (Reason: Edema) atorvastatin 40 mg tablet 40 mg PO DAILY metformin 500 mg tablet 500 mg PO BID potassium chloride 10 mEq capsule, extended release 10 meq PO DAILY carvedilol 12.5 mg tablet 12.5 mg PO BID losartan 25 mg tablet 25 mg PO DAILY bupropion HCl 75 mg tablet 75 mg PO QAM omeprazole 20 mg capsule,delayed release(DR/EC) 20 mg PO DAILY gabapentin 100 mg capsule 100 mg PO DAILY PRN (Reason: Pain) ibuprofen 600 mg tablet 600 mg PO TID albuterol sulfate [Ventolin HFA] 90 mcg/actuation HFA aerosol inhaler 2 inh inhalation Q4H PRN (Reason: Wheezing) escitalopram oxalate 20 mg tablet 20 mg PO DAILY aripiprazole 5 mg tablet 5 mg PO DAILY Farxiga 10 mg tablet 10 mg PO DAILY Discharge Orders: Discharge Order (Routine); Ordered 07/26/23 Ordered By: Ministerio Chen Diet: Advance to usual diet Activity on Discharge: As tolerated Stand Alone Forms: Patient Portal Discharge page Care Plan Goals: recovery Health Concerns: etoh, chf Plan of Treatment: no etoh, continue lasix Assessment: see above
--- NOTE | 2023-07-26 09:56 | MHC.CM.PN ---
Addendum entered by Altagracia Nuñez 07/26/23 10:36: Updated by RN. DP has changed. Home self care with community resource info provided by the recovery team. Transport via shuttle. A coupon was provided for the coffee shop. Patient will wait in the discharge lounge. He will transport via shuttle from the front [facility] at 12pm. Original Note: IMM 07/25/23 Patient is medically cleared for discharged. The recovery team has been notified of discharge. Per pt report he was seen this am. A bed search CSS program initiated. CM will follow.
== END 2023-07-26 11:54 | disposition home or self-care (01) | DRG 291 ==
LOC: HO.ED 11:07 → HO.EDOVER 14:19 → HO.S3 21:08
PROVIDERS: Physician Assistant; Admitting Provider Physician Assistant; Emergency Provider Internal Medicine; PCP Nurse Practitioner Family; Visit Provider Internal Medicine
DX: I11.0 Hypertensive heart disease with heart failure (principal); I50.23 Acute on chronic systolic (congestive) heart failure; J96.01 Acute respiratory failure with hypoxia; F10.239 Alcohol dependence with withdrawal, unspecified; Z68.43 Body mass index [BMI] 50.0-59.9, adult; E87.20 Acidosis, unspecified; B34.9 Viral infection, unspecified; E11.65 Type 2 diabetes mellitus with hyperglycemia; T50.1X6A Underdosing of loop [high-ceiling] diuretics, initial encounter; Z91.199 Patient's noncompliance with other medical treatment and regimen due to unspecified reason; R19.7 Diarrhea, unspecified; I44.0 Atrioventricular block, first degree; I45.10 Unspecified right bundle-branch block; E66.01 Morbid (severe) obesity due to excess calories; F43.10 Post-traumatic stress disorder, unspecified; Z20.822 Contact with and (suspected) exposure to COVID-19; Y90.7 Blood alcohol level of 200-239 mg/100 ml; Z79.84 Long term (current) use of oral hypoglycemic drugs; Z79.899 Other long term (current) drug therapy
CPT/HCPCS: 36415; 71046; 71250; 74177; 80048; 80053; 80307; 81003; 82248; 82947; 83605; 83690; 83735; 83880; 84484; 85025; 85027; 87040; 87493; 87507; 87633; 87635; 93005; 93306; 94660; 99285; J1650; J1940; J2405; J2560; Q9957; Q9967

== ENCOUNTER 2023-07-24 14:13 | Outpatient (BNV) | payer MEDICARE, MEDICAID, SELFPAY | END 2023-07-24 15:30 | PROVIDERS: Admitting Provider Physician Assistant; Emergency Provider Internal Medicine; Visit Provider Internal Medicine | DX: I44.0 Atrioventricular block, first degree (principal); R94.31 Abnormal electrocardiogram [ECG] [EKG] | CPT/HCPCS: 93306 ==

== ENCOUNTER → 2023-07-24 14:13 | Outpatient (BNV) | payer MEDICARE, MEDICAID, SELFPAY | PROVIDERS: Admitting Provider Physician Assistant; Emergency Provider Internal Medicine; Visit Provider Internal Medicine | DX: R19.7 Diarrhea, unspecified (principal) | CPT/HCPCS: 99223; 99233; 99239 ==

== ENCOUNTER 2023-08-01 00:13 | Emergency (ER) | payer MEDICARE, MEDICAID, SELFPAY ==
--- NOTE | 2023-08-01 | ECG_ITS ---
Test Reason : CHEST PAIN Blood Pressure : / mmHG Vent. Rate : 085 BPM Atrial Rate : 085 BPM P-R Int : 214 ms QRS Dur : 096 ms QT Int : 412 ms P-R-T Axes : 034 256 -18 degrees QTc Int : 490 ms Sinus rhythm with 1st degree A-V block Low voltage QRS Incomplete right bundle branch block Possible Anterolateral infarct (cited on or before 24-DEC-2022) Abnormal ECG When compared with ECG of 24-JUL-2023 05:37, No significant change was found Referred By: Generic ED Physician Electronically Signed By:ZENA ONEIL
[2023-08-01 00:16] VITALS: BP 142/71; PULSE 90; O2SAT 93
[2023-08-01 00:22] VITALS: BP 133/78; PULSE 82; RESP 17; TEMP 36.6; O2SAT 94; BMI 61.7
[2023-08-01 00:57] LABS: Hematocrit 40.2 % (42.0-52.0); Hemoglobin 13.6 g/dl (14.0-18.0); Mean Corpuscular HGB Conc 33.8 g/dl (31.0-36.0); Mean Corpuscular Hemoglobin 29.9 pg (27.0-33.0); Mean Corpuscular Volume 88.4 fL (80.0-98.0); Mean Platelet Volume 9.9 fL (9.4-12.4); Platelet Count 225 X10*3/uL (160-400); Red Blood Count 4.55 X10*6/uL (4.60-5.80); White Blood Count 4.3 X10*3/uL (4.8-10.8)
[2023-08-01 01:14] LABS: Alanine Aminotransferase 18 U/L (0-40); Albumin Level 3.5 g/dL (3.5-5.0); Alkaline Phosphatase 75 U/L (39-117); Anion Gap 16 (12-20); Aspartate Amino Transferase 24 U/L (5-37); Bilirubin Total 0.5 mg/dL (0.0-1.0); Blood Urea Nitrogen 8 mg/dL (9-16); Calcium 8.4 mg/dL (8.4-10.2); Carbon Dioxide 30 mmol/L (22-29); Chloride 99 mmol/L (96-108); Creatinine Clr Calc Pharmacy 217.5; Estimated Glomerular Filt Rate > 60; Glucose Random 176 mg/dL (60-115); Potassium 3.5 mmol/L (3.3-5.1); Sodium 141 mmol/L (135-145); Total Protein 7.2 g/dL (6.5-8.0)
[2023-08-01 01:16] LABS: Troponin-I High Sensitivity 14.2 ng/L (<3.5-35.0)
[2023-08-01 01:20] LABS: Glucose, Whole Blood 171 mg/dL (60-115)
[2023-08-01 01:32] LABS: Ethanol 213 mg/dL; Lipase 11 U/L (8-78)
--- NOTE | 2023-08-01 01:41 | ED.CHESTPAIN ---
HPI - Chest Pain General Chief Complaint: Chest Pain Stated Complaint: cp and sob Time Seen by Provider: 08/01/23 00:24 Source: patient Mode of arrival: EMS History of Present Illness HPI narrative: 52-year-old male with arrival via ambulance for having 3 days of nausea or vomiting and associated chest discomfort afterwards and known to have significant alcohol use disorder and alcohol intoxication. Related Data Home Medications Medication Instructions Recorded Confirmed albuterol sulfate 90 mcg/actuation 2 inh inhalation Q4H PRN Wheezing 07/24/23 07/24/23 aerosol inhaler (Ventolin HFA) aripiprazole 5 mg tablet 5 mg PO DAILY 07/24/23 07/24/23 atorvastatin 40 mg tablet 40 mg PO DAILY 07/24/23 07/24/23 bupropion HCl 75 mg tablet 75 mg PO QAM 07/24/23 07/24/23 carvedilol 12.5 mg tablet 12.5 mg PO BID 07/24/23 07/24/23 dapagliflozin propanediol 10 mg 10 mg PO DAILY 07/24/23 07/24/23 tablet (Farxiga) escitalopram oxalate 20 mg tablet 20 mg PO DAILY 07/24/23 07/24/23 furosemide 40 mg tablet 40 mg PO DAILY PRN Edema 07/24/23 07/24/23 gabapentin 100 mg capsule 100 mg PO DAILY PRN Pain 07/24/23 07/24/23 ibuprofen 600 mg tablet 600 mg PO TID 07/24/23 07/24/23 losartan 25 mg tablet 25 mg PO DAILY 07/24/23 07/24/23 metformin 500 mg tablet 500 mg PO BID 07/24/23 07/24/23 omeprazole 20 mg capsule,delayed 20 mg PO DAILY 07/24/23 07/24/23 release potassium chloride 10 mEq 10 meq PO DAILY 07/24/23 07/24/23 capsule,extended release Previous Rx's Medication Instructions Recorded ondansetron HCl 4 mg tablet 4 mg PO Q8H PRN nausea and 08/01/23 vomiting 3 days #10 tabs Allergies Allergy/AdvReac Type Severity Reaction Status Date / Time No Known Allergies Allergy Verified 07/24/23 05:30 Review of Systems Review of Systems: Pertinent positives and negatives as stated in HPI PMFSH Past Medical History Source: nursing notes reviewed Medical History TERRIE on CPAP Morbid obesity Acute gastritis with bleeding Systolic heart failure Alcohol use disorder, severe, dependence Herniated disc Arthritis PTSD (post-traumatic stress disorder) Depression Anxiety Obesity Sleep apnea Hypertension Diabetes mellitus, type 2 Family History Family History Mother Diabetes Social History Social History Household Members: None Housing: Apartment Do you presently have visiting nurse or other home services: No Alcohol intake: current Alcohol intake frequency: holidays/special occasions only Alcohol type: hard liquor Patient Tobacco Use Status: Never used Tobacco Smoked in Last 30 Days: No e-Cigarette/Vaping Use: Never Used Second Hand Smoke Exposure: No Use of substances other than those prescribed or required for medical reasons: No Substance Use Type: Other Advance Directives: No Advance Directives Information Provided: Yes service: Yes Current occupational status: employed Sexual orientation: Straight/Heterosexual Physical Exam Vital Signs: Vital Signs: Last Vital Signs Temp 97.9 F 08/01/23 00:22 Pulse 90 08/01/23 04:56 Resp 15 08/01/23 04:56 BP 129/69 08/01/23 04:56 Pulse Ox 93 08/01/23 04:56 O2 Del Method Nasal Cannula 08/01/23 04:56 O2 Flow Rate 2 08/01/23 04:56 Oxygen Flow Rate 2 08/01/23 00:22 BMI result Body Mass Index 61.7 VITAL SIGNS: Reviewed. GENERAL: Elevated BMI, Well developed, well nourished, in no acute distress. HEAD: Normocephalic/atraumatic EYES: PERRLA, EOMI EARS: Ext canals without abnormality, TMs non-bulging and non-erythematous NOSE: Nares patent bilateral OROPHARYNX: no oral lesions noted, posterior pharynx clear and non-erythematous without noted tonsillar enlargement/erythema/exudates NECK: Supple, no adenopathy LUNGS: Normal breath sounds. No adventitious sounds or accessory muscle use. SpO2<94> CARDIOVASCULAR: Regular rate and rhythm without noted murmurs ABDOMEN: Soft, non-tender, non-distended with bowel sounds. MUSCULOSKELETAL: No tenderness, deformities, or effusions noted on gross inspection. EXTREMITIES: No cyanosis, clubbing or edema. SKIN: Inspection of the skin reveals no rashes NEUROLOGIC: Alert and oriented x 4. Strength and sensation to light touch were grossly intact x 4. Medications Administered Discontinued Medications Generic Name Dose Route Start Last Admin Trade Name Alf PRN Reason Stop Dose Admin Ondansetron HCl 4 mg 08/01/23 01:18 08/01/23 02:03 Ondansetron Hcl 4 Mg/2 Ml Vial IVPUSH 08/01/23 01:19 4 mg ONCE ONE Administration Medical Decision Making Medical Decision Making MDM Narrative: 52-year-old male with history and clinical presentation consistent with alcoholic gastritis and suspect significant alcoholic esophagitis secondary to multiple episodes of nausea and vomiting, no clinical suspicion for Bess-Anaya or any upper GI bleeding at this time. Patient is also a noted diabetic without evidence of DKA or HHS. Patient receive IV fluid resuscitation as well as antiemetics and then receive a GI cocktail and will re-evaluate. I reviewed all investigations hematologic indices demonstrate of mild decrease but overall chronically stable normocytic anemia, there is no thrombocytopenia and no leukocytosis. Chemistry indices are negative for metabolic acidosis, potassium levels are within normal range, there is no [place] and although there is a mild hyperglycemia there is no evidence of DKA or HHS. Liver enzymes are within normal limits and troponin is chronically detectable but not elevated. Urinalysis negative for UTI or hematuria. [id number]. Sinus rhythm with stable first-degree AV block. Differential Diagnosis Differential Diagnoses: The differential diagnosis associated with the presentation includes Please see the discussion above Admission/Observation Consideration of admission/observation: Escalation of care including admission/observation considered Please see the discussion above Lab Data [facility] Lab Attestation statement: I reviewed the patient's lab results. Please see the discussion above 08/01/23 00:49 08/01/23 00:49 Labs: Lab Results 08/01/23 08/01/23 08/01/23 Range/Units 00:49 01:15 02:59 WBC 4.3 L (4.8-10.8) X10*3/uL RBC 4.55 L (4.60-5.80) X10*6/uL Hgb 13.6 L (14.0-18.0) g/dl Hct 40.2 L (42.0-52.0) % MCV 88.4 (80.0-98.0) fL MCH 29.9 (27.0-33.0) pg MCHC 33.8 (31.0-36.0) g/dl RDW 15.0 (11.0-16.0) % Plt Count 225 (160-400) X10*3/uL MPV 9.9 (9.4-12.4) fL Absolute Nucleated RBC 0.000 (0.0-0.012) X10*3/uL Nucleated RBC % (auto) 0.0 (0.0-0.2) /100WBC Sodium 141 (135-145) mmol/L Potassium 3.5 (3.3-5.1) mmol/L Chloride 99 (96-108) mmol/L Carbon Dioxide 30 H (22-29) mmol/L Anion Gap 16 (12-20) BUN 8 L (9-16) mg/dL Creatinine 0.70 (0.5-1.4) mg/dL Estim Creat Clear Calc 217.5 Estimated GFR > 60 POC Glucose 171 H (60-115) mg/dL Random Glucose 176 H (60-115) mg/dL Calcium 8.4 (8.4-10.2) mg/dL Total Bilirubin 0.5 (0.0-1.0) mg/dL AST 24 (5-37) U/L ALT 18 (0-40) U/L Alkaline Phosphatase 75 (39-117) U/L Troponin I High Sens 14.2 (<3.5-35.0) ng/L Total Protein 7.2 (6.5-8.0) g/dL Albumin 3.5 (3.5-5.0) g/dL Lipase 11 (8-78) U/L Urine Color Yellow Urine Appearance Clear Urine pH 6.5 (5.0-9.0) Ur Specific Buckner 1.015 (1.005-1.025) Urine Protein Trace (Neg-Trace) mg/dL Urine Glucose (UA) Negative (Negative) mg/dL Urine Ketones Negative (Negative) mg/dL Urine Blood Negative (Negative) Urine Nitrite Negative (Negative) Ur Leukocyte Esterase Negative (Negative) Ethyl Alcohol 213 mg/dL Independent Interpretation I performed an independent interpretation of an: EKG Interpretation: Sinus rhythm with first-degree AV block, HR-85, no STEMI, OR-214, QRS within normal limits and QTC -490. External Record Review External record reviewed: Outpatient record, Prior outpatient labs and Prior outpatient radiology Chronic Conditions Patient?s care impacted by: Diabetes and Hypertension Critical Care Time Critical Care Time Critical Care Time: Yes Total Critical Care Time: 30 Attestation: I personally attest to this time spent taking care of the patient. Discharge Plan Discharge Clinical Impression: Alcohol use disorder, severe, dependence, Alcohol intoxication, Dehydration, Alcoholic gastritis Patient Disposition: Home, Self-Care Instructions: Gastritis (ED), Dehydration (ED), Diet for Stomach Ulcers and Gastritis (ED), Alcohol Intoxication (ED), Abuse of Alcohol (ED) Additional Instructions: 1. Resume all home medications as prescribed. 2. A list of alcohol detox facilities has been provided to you, you have also received a prescription for antinausea medication. 3. Please follow-up with your primary care provider by calling the office today and setting up an appointment for re-evaluation and further outpatient management Return to the ER for any worsening symptoms. Prescriptions: New ondansetron HCl 4 mg tablet 4 mg PO Q8H PRN (Reason: nausea and vomiting) 3 Days Qty: 10 0RF No Action furosemide 40 mg tablet 40 mg PO DAILY PRN (Reason: Edema) atorvastatin 40 mg tablet 40 mg PO DAILY metformin 500 mg tablet 500 mg PO BID potassium chloride 10 mEq capsule, extended release 10 meq PO DAILY carvedilol 12.5 mg tablet 12.5 mg PO BID losartan 25 mg tablet 25 mg PO DAILY bupropion HCl 75 mg tablet 75 mg PO QAM omeprazole 20 mg capsule,delayed release(DR/EC) 20 mg PO DAILY gabapentin 100 mg capsule 100 mg PO DAILY PRN (Reason: Pain) ibuprofen 600 mg tablet 600 mg PO TID albuterol sulfate [Ventolin HFA] 90 mcg/actuation HFA aerosol inhaler 2 inh inhalation Q4H PRN (Reason: Wheezing) escitalopram oxalate 20 mg tablet 20 mg PO DAILY aripiprazole 5 mg tablet 5 mg PO DAILY Farxiga 10 mg tablet 10 mg PO DAILY
[2023-08-01] MEDS: ondansetron HCL 4 MG/2 ML VIAL IVPUSH (02:03)
[2023-08-01 02:47] VITALS: BP 115/78; PULSE 92; RESP 17; O2SAT 91
[2023-08-01 03:08] LABS: Appearance Urine Clear; Color Urine Yellow; Glucose Urine UA Negative (Negative); Leukocyte Esterase Urine Negative (Negative); Nitrite Urine Negative (Negative); PH 6.5 (5.0-9.0); Specific Gravity - Urine 1.015 (1.005-1.025); Urine Blood Negative (Negative); Urine Ketones Negative (Negative); Urine Protein Trace mg/dL (Neg-Trace)
--- NOTE | 2023-08-01 03:28 | PC.NURSE ---
Pt provided with food/drink for PO challenge. Per pt, I don't think I'm going to be able to. notified.
[2023-08-01 04:56] VITALS: BP 129/69; PULSE 90; RESP 15; O2SAT 93
--- NOTE | 2023-08-01 07:14 | PC.NURSE ---
THIS RN ATTEMPTED TO REVIEW DISCHARGE WITH PATIENT. PATIENT ADAMANT TO SPEAK TO DOCTOR ON THE 5TH FLOOR. PATIENT WOULD LIKE DETOX, DOES NOT WANT A LIST OF PROVIDERS AND DOES NOT WANT TO GO HOME. DISCUSSED WITH ONCOMING RN AND SHE WILL DISCUSS WITH [employer] FOR A ELECTRONIC [employer]ELD SERVICE ENGINEER OR DETOX OPTIONS.
--- NOTE | 2023-08-01 07:37 | PC.NURSE ---
this nurse spoke with our ED providers about the patient not wanting to discharge, recovery has been contacted per their request, this nurse is awaiting recovery coaches to get back to us, will continue to monitor
[2023-08-01 07:44] VITALS: BP 145/71; PULSE 85; RESP 16; TEMP 36.6; O2SAT 92
--- NOTE | 2023-08-01 07:46 | PC.NURSE ---
a&ox3, vss and up to date. came in to let pt know that his discharge paperwork is in. pt requesting to speak with provider on M5 - pt unaware of provider's name. requesting to speak w/ provider so he can take a pill that will make him sick if he ingests any alcohol. pt now endorsing SI at this time - stating that if he is discharged that he will take a bunch of pills to kill himself. pt denies HI at this time. pt now c/o nonradiating 8/10 chest pain that worsens when he breaths. pt verbalizing that he feels SOB. pt able to speak in full, clear sentences w/o difficulty. no WOB shown. lung sounds clear upon auscultation. pt requesting to speak w/ someone in regards to detox. pt endorses that his last drink was yesterday (07/31/23) - pt drank 2 glasses of vodka. . pt c/o headache/nausea at this time. pt denies any hallucinations. pt does not display any v/tremors at this time. pt resting in no apparent distress. respirations even and unlabored. call decker placed within reach.
--- NOTE | 2023-08-01 08:39 | PC.NURSE ---
TYREE Caceres has contacted this nurse and will go see the patient
--- NOTE | 2023-08-01 09:30 | PC.NURSE ---
pt was moved to [place] [id number] while an inpt detox bed search is being performed by recovery coaches - since speaking with the coaches pt denying SI stating he is just frustrated over his situation and is wanting help.
--- NOTE | 2023-08-01 09:34 | MHC.RECOVRN ---
Addendum entered by Sis Fallon RN 08/01/23 13:33: Detox bedsearch exhausted, discussed at length with pt to monitor for withdrawal symptoms and to come back to the ED should he begin to feel like he is going through withdrawals. Pt verbalized understanding, pt inquiring about starting Antabuse, encouraged to present to [facility] as a walkin. Pt to be transported home via shuttle, provider aware and plan to medicate pt prior to d/c with Librium. Addendum entered by Sis Fallon RN 08/01/23 09:45: [place] has no male beds today, referral packet sent to [place]. Original Note: T/w met with pt to dicuss recovery needs. Pt reports he has drank approx 5 1.75 liters of hard alcohol since his discharge from the hospital late last week. Pt reports last drink was prior to coming in. States, I can't do this on my own, I need help stating he feels as though he may become suicidal if he is unable to get into detox. Pt stating he does not want to continue drinking, and hoping for the medicine that makes you sick if you drink when he has detoxed from alchohol. Pt ok with going to any detox that has availability, has no preference for distance or facility. Pt reports he has been unable to contact his population health coach, and plans for getting into [facility] has fallen through. Pt informed t/w will be starting a detox bedsearch, pt's primary RN aware of plan of care.
[2023-08-01 10:00] VITALS: BP 148/81; PULSE 73; RESP 18; TEMP 36.1; O2SAT 94
--- NOTE | 2023-08-01 10:13 | PC.NURSE ---
vss and up to date. pt still c/o chest pain but only w/ inspiration. pt denies radiating pain. pt requesting to speak with respiratory to see if there is a way that they can provide the pt with a CPAP machine in the hallway. pt states that they bring him one all the time when he is in the ED so he is able to get some rest. pt currently denies SI/HI at this time. pt resting in stretcher in no apparent distress. respirations even and unlabored.
[2023-08-01] MEDS: chlordiazePOXIDE HCl 25 MG CAPSULE 50 MG PO (13:40)
--- NOTE | 2023-08-01 13:48 | PC.NURSE ---
pt medicated per provider order. pt awaiting lyft so he can be discharged from the ED.
== END 2023-08-01 13:49 | disposition home or self-care (01) ==
PROVIDERS: Emergency Provider Student in an Organized Health Care Education/Training Program
DX: F10.220 Alcohol dependence with intoxication, uncomplicated (principal); Y90.7 Blood alcohol level of 200-239 mg/100 ml; E86.0 Dehydration; K29.20 Alcoholic gastritis without bleeding; R11.2 Nausea with vomiting, unspecified; E11.9 Type 2 diabetes mellitus without complications; I10 Essential (primary) hypertension; E66.9 Obesity, unspecified; Z68.44 Body mass index [BMI] 60.0-69.9, adult; Z79.899 Other long term (current) drug therapy; Z79.84 Long term (current) use of oral hypoglycemic drugs
CPT/HCPCS: 36415; 80053; 80307; 81003; 82947; 83690; 84484; 85027; 93005; 96374; 99284; 99285; J2405

== ENCOUNTER 2024-01-16 04:38 | Inpatient (IN) | payer OTHER, SELFPAY ==
[2024-01-16] VITALS (9 sets, daily range): BP systolic 125–184; BP diastolic 67–88; PULSE 68–110; RESP 15–20; TEMP 35.9–36.6; O2SAT 92–99; BMI 57.2
--- NOTE | 2024-01-16 | ECG_ITS ---
Test Reason : CHEST PAIN Blood Pressure : / mmHG Vent. Rate : 090 BPM Atrial Rate : 090 BPM P-R Int : 206 ms QRS Dur : 100 ms QT Int : 444 ms P-R-T Axes : 000 268 142 degrees QTc Int : 543 ms Suspect limb leads reversal Normal sinus rhythm Right superior axis deviation Low voltage QRS Incomplete right bundle branch block Septal infarct (cited on or before 24-DEC-2022) T wave abnormality, consider anterior ischemia Prolonged QT Abnormal ECG When compared with ECG of 01-AUG-2023 00:26, Limb leads reversed. Referred By: Generic ED Physician Electronically Signed By:Daniel Major
--- NOTE | ~2024-01-16 | XR_ITS ---
EXAMINATION: XR CHEST CLINICAL INFORMATION: Epigastric pain. Chest pain COMPARISON: Frontal view 07/24/23 TECHNIQUE: Upright frontal portable view of the chest was obtained. FINDINGS: Multiple devices overlie the patient. Lordotic projection with rotation toward the left. There is some tortuosity aorta. Cardiac size indeterminate but likely unchanged. No large hilar mass. No alveolar edema. There is hypoinflation. Positioning and hypoinflation limit assessment of the left lower lung. No consolidation in the right lung or left upper lung. There is no pneumothorax. XR/XR chest 1V IMPRESSION: Hypoinflation. Limited assessment of the left lower chest with no definite focal pneumonia or edema
[2024-01-16 04:48] LABS: Glucose, Whole Blood 240 mg/dL (60-115)
[2024-01-16 05:10] LABS: Basophils Absolute Auto 0.1 X10*3/uL (0.0-0.2); Basophils Percent Auto 0.9 % (0-2); Eosinophils Absolute Auto 0.1 X10*3/uL (0.0-0.4); Eosinophils Percent Auto 1.1 % (0-4); Hematocrit 43.8 % (42.0-52.0); Hemoglobin 14.8 g/dl (14.0-18.0); Imm Gran Abs Auto 0.01 X10*3/uL (0.00-0.03); Imm Gran Pct Auto 0.2 % (0.0-0.4); Lymphocytes Absolute Auto 1.8 X10*3/uL (1.2-4.9); Lymphocytes Percent Auto 31.6 % (20-40); MANUAL DIFF FLAG NO; Mean Corpuscular HGB Conc 33.8 g/dl (31.0-36.0); Mean Corpuscular Hemoglobin 28.1 pg (27.0-33.0); Mean Corpuscular Volume 83.3 fL (80.0-98.0); Mean Platelet Volume 10.1 fL (9.4-12.4); Monocytes Absolute Auto 0.5 X10*3/uL (0.1-1.2); Monocytes Percent Auto 8.2 % (2-11); Neutrophils Absolute Auto 3.3 x10*3/uL (2.0-8.3); Platelet Count 265 X10*3/uL (160-400); Red Blood Count 5.26 X10*6/uL (4.60-5.80); White Blood Count 5.6 X10*3/uL (4.8-10.8)
--- NOTE | 2024-01-16 05:17 | PC.NURSE ---
PT c/o chest pain on and off since 9pm, was seen at [facility] and left w/ out completing tx due to long wait time. EKG, 20G placed in right hand, and labs drawn and sent. NSR on monitor, VS stable.
[2024-01-16 05:27] LABS: Alanine Aminotransferase 33 U/L (0-40); Albumin Level 3.7 g/dL (3.5-5.0); Alkaline Phosphatase 73 U/L (39-117); Anion Gap 18 (12-20); Aspartate Amino Transferase 30 U/L (5-37); Bilirubin Total 0.8 mg/dL (0.0-1.0); Blood Urea Nitrogen 10 mg/dL (9-16); Calcium 8.6 mg/dL (8.4-10.2); Carbon Dioxide 27 mmol/L (22-29); Chloride 97 mmol/L (96-108); Creatinine Clr Calc Pharmacy 199.7; Estimated Glomerular Filt Rate > 60; Glucose Random 259 mg/dL (60-115); Potassium 3.8 mmol/L (3.3-5.1); Sodium 138 mmol/L (135-145); Total Protein 7.6 g/dL (6.5-8.0)
[2024-01-16 05:32] LABS: Troponin-I High Sensitivity 9.1 ng/L (<3.5-35.0)
[2024-01-16 05:47] LABS: Influenza A PCR NEGATIVE (Negative); Influenza B PCR NEGATIVE (Negative); Resp Syncy Virus RNA Qual PCR NEGATIVE (Negative); SARS COV2 PCR INHOUSE NEGATIVE (Negative)
[2024-01-16 06:13] LABS: B Type Natriuretic Peptide 62 pg/mL (<100)
--- NOTE | 2024-01-16 06:47 | ED_ITS ---
HPI - Chest Pain General Chief Complaint: Chest Pain Stated Complaint: cp Time Seen by Provider: 01/16/24 06:44 Source: patient and EMS Mode of arrival: EMS Limitations: no limitations History of Present Illness HPI narrative: Patient is a 53 year old assigned male at with a history of CHF, MDD, and alcohol use disorder presenting to the emergency department today with epigastric pain, nausea, and vomiting. Patient states that over the last 4 days he has had epigastric pain, nausea, and vomiting. Patient states that he was sober for some time but has had intermittent drinks over the last few days. Patient states that he was seen at [facility] and diagnosed with a viral illness. Patient states that he tried to go back there but he didn't want to wait in their waiting room so he came here. Patient denies any dizziness, lightheadedness, fever, chills, blurry vision, double vision, loss of vision, chest pain, difficulty breathing, shortness of breath, back pain, night sweats, pain with urination, increased urinary frequency, increased urinary urgency, blood in his urine or stool, syncope or a near syncopal episode, recent trauma or falls, bowel incontinence, bladder incontinence, bowel retention, bladder retention, or any other complaints at this time. Related Data Home Medications Medication Instructions Recorded Confirmed albuterol sulfate 90 mcg/actuation 2 inh inhalation Q4H PRN Wheezing 07/24/23 07/24/23 aerosol inhaler (Ventolin HFA) aripiprazole 5 mg tablet 5 mg PO DAILY 07/24/23 07/24/23 atorvastatin 40 mg tablet 40 mg PO DAILY 07/24/23 07/24/23 bupropion HCl 75 mg tablet 75 mg PO QAM 07/24/23 07/24/23 carvedilol 12.5 mg tablet 12.5 mg PO BID 07/24/23 07/24/23 dapagliflozin propanediol 10 mg 10 mg PO DAILY 07/24/23 07/24/23 tablet (Farxiga) escitalopram oxalate 20 mg tablet 20 mg PO DAILY 07/24/23 07/24/23 furosemide 40 mg tablet 40 mg PO DAILY PRN Edema 07/24/23 07/24/23 gabapentin 100 mg capsule 100 mg PO DAILY PRN Pain 07/24/23 07/24/23 ibuprofen 600 mg tablet 600 mg PO TID 07/24/23 07/24/23 losartan 25 mg tablet 25 mg PO DAILY 07/24/23 07/24/23 metformin 500 mg tablet 500 mg PO BID 07/24/23 07/24/23 omeprazole 20 mg capsule,delayed 20 mg PO DAILY 07/24/23 07/24/23 release potassium chloride 10 mEq 10 meq PO DAILY 07/24/23 07/24/23 capsule,extended release Previous Rx's Medication Instructions Recorded ondansetron HCl 4 mg tablet 4 mg PO Q8H PRN nausea and 08/01/23 vomiting 3 days #10 tabs Allergies Allergy/AdvReac Type Severity Reaction Status Date / Time No Known Allergies Allergy Verified 01/16/24 05:32 Review of Systems 2 Constitutional: Constitutional: Reports no additional constitutional complaints, Denies chills, Denies fever(s) and Denies night sweats Eyes: Eyes: Reports no additional eye complaints, Denies blurry vision, Denies change in vision, Denies diplopia, Denies eye discharge, Denies loss of vision and Denies eye pain ENT: Denies dizziness Cardiovascular: Cardiovascular: Reports no additional cardiovascular complaints, Denies chest pain, Denies lightheadedness, Denies Loss of Consciousness and Denies dyspnea Respiratory: Respiratory: Reports no additional respiratory complaints and Denies dyspnea Gastrointestinal: Gastrointestinal: Reports no additional gastrointestinal complaints, Reports abdominal pain, Denies melena, Denies hematochezia, Denies change in bowel habits, Denies change in stool character, Reports nausea and Reports vomiting Genitourinary: Genitourinary: Reports no additional male genitourinary complaints, Denies hematuria, Denies oliguria, Denies difficulty urinating, Denies dysuria, Denies urinary frequency, Denies urinary hesitancy, Denies urinary incontinence and Denies urinary urgency Musculoskeletal: Musculoskeletal: Reports no additional musculoskeletal complaints, Denies numbness and Denies tingling Neurologic: Denies dizziness, Denies loss of vision, Denies numbness and Denies tingling Psychiatric: Psychiatric: Reports no additional psychiatric complaints Endocrine: Endocrine: Reports no additional endocrine complaints Hematologic/Lymphatic: Hematologic/Lymphatic: Reports no additional hematologic/lymphatic complaints Allergic/Immunologic: Allergic/Immunologic: Reports no additional allergic/immunologic complaints PMFSH Past Medical History Attestation statement: The following information was validated with the patient. Source: old records reviewed and nursing notes reviewed Medical History TERRIE on CPAP Morbid obesity Acute gastritis with bleeding Systolic heart failure Alcohol use disorder, severe, dependence Herniated disc Arthritis PTSD (post-traumatic stress disorder) Depression Anxiety Obesity Sleep apnea Hypertension Diabetes mellitus, type 2 Family History Family History Mother Diabetes Social History Social History Household Members: None Housing: Apartment Do you presently have visiting nurse or other home services: No Alcohol intake: current Alcohol intake frequency: holidays/special occasions only Alcohol type: beer Patient Tobacco Use Status: Never used Tobacco e-Cigarette/Vaping Use: Never Used Second Hand Smoke Exposure: No Use of substances other than those prescribed or required for medical reasons: Yes Substance Use Type: Marijuana Substance Use Frequency: Occasionally Advance Directives: No Advance Directives Information Provided: Yes service: Yes Current occupational status: employed Sexual orientation: Straight/Heterosexual Physical Exam 2 Vital Signs: Vital Signs: Last Vital Signs Temp 97.9 F 01/16/24 07:26 Pulse 68 01/16/24 10:11 Resp 16 01/16/24 10:11 BP 141/71 H 01/16/24 10:11 Pulse Ox 94 01/16/24 10:11 O2 Del Method Room Air 01/16/24 10:11 BMI result Body Mass Index 57.2 Const: General: cooperative, no acute distress, alert and awake Nutritional Appearance: well nourished Orientation/consciousness: patient oriented x3 Limitations: no limitations HEENT: Head: Yes normal to inspection and Yes atraumatic Ears: hearing grossly normal bilaterally and external ears normal General nose exam: Normal external nose present, no nasal discharge noted and no epistaxis Face and sinus: Yes normal facial exam, No abrasion and No laceration Mouth: Normal oral and palatal mucosa present, no drooling and no muffled voice Eyes: General: appearance normal, both eyes and all related structures P eriorbital: periorbital findings normal Eyelids: Yes eyelids normal C onjunctivae: conjunctivae normal Pupils: Equal, round and reactive pupils present EOM: EOMs intact bilaterally Neck: Neck: Yes normal visual inspection, Yes full ROM and Yes no lymphadenopathy Chest: Chest palpation & inspection: normal inspection of the chest Resp: Effort & Inspection: normal respiratory effort and able to speak in complete sentences GI: Inspection: Yes normal to inspection Palpation (GI): Soft to palpation, not firm, nontender, no guarding and not rigid Neuro: General: patient oriented x3 and moves all extremities Cranial nerves: Yes Equal, round and reactive pupils present Cognition (Neuro): n ormal cognition Motor exam (neuro): 5/5 motor strength present throughout Sensory Exam: Normal double simultaneous stimulation for sensation C oordination: [id number] test normal Extrem: General: Yes normal to inspection, Yes full ROM and Yes capillary refill normal Psych: Appearance: grossly normal Mental Status: mental status grossly normal Affect: normal affect Attitude: cooperative Thought process: N ormal thought process present Thought content: Normal thought content present Insight: Good insight present (Psych) Medications Administered Discontinued Medications Generic Name Dose Route Start Last Admin Trade Name Freq PRN Reason Stop Dose Admin Al Hydroxide/Mg Hydroxide 15 ml 01/16/24 06:55 01/16/24 07:09 Magnesium Hydrox/Alum Hydrox 30 Ml Oral.Susp PO 01/16/24 06:56 15 ml ONCE ONE Administration Sodium Chloride 1,000 mls @ 999 mls/hr 01/16/24 07:00 01/16/24 10:35 Ns IV 01/16/24 08:00 Infused .Q1H1M TOBY Infusion Metoclopramide HCl 10 mg 01/16/24 07:22 01/16/24 07:32 Metoclopramide Hcl 10 Mg/2 Ml Vial IVPUSH 01/16/24 07:23 10 mg ONCE ONE Administration Morphine Sulfate 4 mg 01/16/24 06:56 01/16/24 07:13 Morphine Sulfate 4 Mg/Ml Cartridge IVPUSH 01/16/24 06:57 4 mg ONCE ONE Administration Protocol Pantoprazole Sodium 40 mg 01/16/24 06:55 01/16/24 07:10 Pantoprazole Sodium 40 Mg/10 Ml Vial IVPUSH 01/16/24 06:56 40 mg ONCE ONE Administration Medical Decision Making Medical Decision Making MDM Narrative: Patient is a 53 year old assigned male at with a history of TERRIE and alcohol abuse presenting to the emergency department today initially with epigastric pain, nausea, and vomiting. However, patient then expressed he was feeling suicidal. Patient's physical exam was unremarkable. Patient's blood work was unremarkable. Patient's EKG was unremarkable. Patient's chest x-ray showed no acute process. I explained my physical exam findings as well as all test results to the patient. I answered all questions asked by the patient. Patient was evaluated by the addiction team who alerted me to the patient being newly suicidal with a plan to overdose on medications at his house. Patient moved to the behavioral health POD. CARE team alerted. Patient's disposition will be determined after CARE team evaluation. Differential Diagnosis Differential Diagnoses: The differential diagnosis associated with the presentation includes Epigastric pain Alcohol abuse Depression Suicidal ideation Admission/Observation Consideration of admission/observation: Escalation of care including admission/observation considered Patient's disposition will be determined after CARE team evaluation. Consult Healthcare Provider Management of the patient was discussed with: Behavioral Health Provider (spoke with the addiction team as noted in the MDM Rationale portion of this note. ) Lab Data [facility] Lab Attestation statement: I reviewed the patient's lab results. My interpretation of these results are in the MDM Rationale portion of this note. 01/16/24 05:05 01/16/24 05:05 Labs: Lab Results 01/16/24 01/16/24 01/16/24 Range/Units 04:44 05:05 05:44 WBC 5.6 (4.8-10.8) X10*3/uL RBC 5.26 (4.60-5.80) X10*6/uL Hgb 14.8 (14.0-18.0) g/dl Hct 43.8 (42.0-52.0) % MCV 83.3 (80.0-98.0) fL MCH 28.1 (27.0-33.0) pg MCHC 33.8 (31.0-36.0) g/dl RDW 14.0 (11.0-16.0) % Plt Count 265 (160-400) X10*3/uL MPV 10.1 (9.4-12.4) fL Immature Gran % (Auto) 0.2 (0.0-0.4) % Neut % (Auto) 58.0 (45-73) % Lymph % (Auto) 31.6 (20-40) % [place] % (Auto) 8.2 (2-11) % Eos % (Auto) 1.1 (0-4) % Baso % (Auto) 0.9 (0-2) % Lymph # (Auto) 1.8 (1.2-4.9) X10*3/uL [place] # (Auto) 0.5 (0.1-1.2) X10*3/uL Eos # (Auto) 0.1 (0.0-0.4) X10*3/uL Baso # (Auto) 0.1 (0.0-0.2) X10*3/uL Abs Immat Gran (auto) 0.01 (0.00-0.03) X10*3/uL Absolute Neuts (auto) 3.3 (2.0-8.3) x10*3/uL Absolute Nucleated RBC 0.000 (0.0-0.012) X10*3/uL Nucleated RBC % (auto) 0.0 (0.0-0.2) /100WBC Sodium 138 (135-145) mmol/L Potassium 3.8 (3.3-5.1) mmol/L Chloride 97 (96-108) mmol/L Carbon Dioxide 27 (22-29) mmol/L Anion Gap 18 (12-20) BUN 10 (9-16) mg/dL Creatinine 0.74 (0.5-1.4) mg/dL Estim Creat Clear Calc 199.7 Estimated GFR > 60 POC Glucose 240 H (60-115) mg/dL Random Glucose 259 H (60-115) mg/dL Calcium 8.6 (8.4-10.2) mg/dL Total Bilirubin 0.8 (0.0-1.0) mg/dL AST 30 (5-37) U/L ALT 33 (0-40) U/L Alkaline Phosphatase 73 (39-117) U/L Troponin I High Sens 9.1 (<3.5-35.0) ng/L B-Natriuretic Peptide 62 (<100) pg/mL Total Protein 7.6 (6.5-8.0) g/dL Albumin 3.7 (3.5-5.0) g/dL Urine Opiates Screen (Not Detect) Urine Fentanyl Screen (Not Detect) Ur Barbiturates Screen (Not Detect) Ur Phencyclidine Scrn (Not Detect) Ur Amphetamines Screen (Not Detect) U Benzodiazepines Scrn (Not Detect) Urine Cocaine Screen (Not Detect) U Marijuana (THC) Screen (Not Detect) Ethyl Alcohol mg/dL Influenza Type A (PCR) NEGATIVE (Negative) Influenza Type B (PCR) NEGATIVE (Negative) RSV RNA Qual (PCR) NEGATIVE (Negative) SARS-CoV-2 RNA (RT-PCR) NEGATIVE (Negative) 01/16/24 01/16/24 Range/Units 07:30 08:23 WBC (4.8-10.8) X10*3/uL RBC (4.60-5.80) X10*6/uL Hgb (14.0-18.0) g/dl Hct (42.0-52.0) % MCV (80.0-98.0) fL MCH (27.0-33.0) pg MCHC (31.0-36.0) g/dl RDW (11.0-16.0) % Plt Count (160-400) X10*3/uL MPV (9.4-12.4) fL Immature Gran % (Auto) (0.0-0.4) % Neut % (Auto) (45-73) % Lymph % (Auto) (20-40) % [place] % (Auto) (2-11) % Eos % (Auto) (0-4) % Baso % (Auto) (0-2) % Lymph # (Auto) (1.2-4.9) X10*3/uL [place] # (Auto) (0.1-1.2) X10*3/uL Eos # (Auto) (0.0-0.4) X10*3/uL Baso # (Auto) (0.0-0.2) X10*3/uL Abs Immat Gran (auto) (0.00-0.03) X10*3/uL Absolute Neuts (auto) (2.0-8.3) x10*3/uL Absolute Nucleated RBC (0.0-0.012) X10*3/uL Nucleated RBC % (auto) (0.0-0.2) /100WBC Sodium (135-145) mmol/L Potassium (3.3-5.1) mmol/L Chloride (96-108) mmol/L Carbon Dioxide (22-29) mmol/L Anion Gap (12-20) BUN (9-16) mg/dL Creatinine (0.5-1.4) mg/dL Estim Creat Clear Calc Estimated GFR POC Glucose (60-115) mg/dL Random Glucose (60-115) mg/dL Calcium (8.4-10.2) mg/dL Total Bilirubin (0.0-1.0) mg/dL AST (5-37) U/L ALT (0-40) U/L Alkaline Phosphatase (39-117) U/L Troponin I High Sens 9.6 (<3.5-35.0) ng/L B-Natriuretic Peptide (<100) pg/mL Total Protein (6.5-8.0) g/dL Albumin (3.5-5.0) g/dL Urine Opiates Screen POSITIVE H (Not Detect) Urine Fentanyl Screen Not Detected (Not Detect) Ur Barbiturates Screen Not Detected (Not Detect) Ur Phencyclidine Scrn Not Detected (Not Detect) Ur Amphetamines Screen Not Detected (Not Detect) U Benzodiazepines Scrn Not Detected (Not Detect) Urine Cocaine Screen Not Detected (Not Detect) U Marijuana (THC) Screen Not Detected (Not Detect) Ethyl Alcohol 32 mg/dL Influenza Type A (PCR) (Negative) Influenza Type B (PCR) (Negative) RSV RNA Qual (PCR) (Negative) SARS-CoV-2 RNA (RT-PCR) (Negative) Independent Interpretation I performed an independent interpretation of an: EKG and Plain X-Ray Interpretation: My interpretation is in agreement with the radiologist's impression of this imaging study. - EXAMINATION: XR CHEST CLINICAL INFORMATION: Epigastric pain. Chest pain COMPARISON: Frontal view 07/24/23 TECHNIQUE: Upright frontal portable view of the chest was obtained. FINDINGS: Multiple devices overlie the patient. Lordotic projection with rotation toward the left. There is some tortuosity aorta. Cardiac size indeterminate but likely unchanged. No large hilar mass. No alveolar edema. There is hypoinflation. Positioning and hypoinflation limit assessment of the left lower lung. No consolidation in the right lung or left upper lung. There is no pneumothorax. XR/XR chest 1V IMPRESSION: Hypoinflation. Limited assessment of the left lower chest with no definite focal pneumonia or edema Dictated By: Chao Perez MD Signed By: Electronically signed by Chao Perez MD 01/16/24 0754 - Vent. Rate: 090 BPM Atrial Rate: 090 BPM P-R Int: 206 ms QRS Dur: 100 ms QT Int: 444 ms P-R-T Axes: 000 268 142 degrees QTc Int: 543 ms Normal sinus rhythm Right superior axis deviation Low voltage QRS Incomplete right bundle branch block Septal infarct (cited on or before 24-DEC-2022) T wave abnormality, consider anterior ischemia Prolonged QT Abnormal ECG When compared with ECG of 01-AUG-2023 00:26, Serial changes of Septal infarct Present DD/ 0451 Radiology Impression Discussion of test interpretation with radiology: I have reviewed the radiologist's reading. Independent Historian Clinical information obtained from an independent historian. History obtained from or confirmed by: EMS (EMS provided additional history and confirmed the history provided by the patient.) Critical Care Time Critical Care Time Critical Care Time: Yes Total Critical Care Time: 45 Attestation: I spent 45 minutes of Critical Care Time with this patient. This does not include time spent on separately reported billable procedures. Discharge Plan Discharge Clinical Impression: MDD (major depressive disorder), recurrent episode, moderate, Epigastric pain Patient Disposition: Still a Patient Prescriptions: No Action furosemide 40 mg tablet 40 mg PO DAILY PRN (Reason: Edema) atorvastatin 40 mg tablet 40 mg PO DAILY metformin 500 mg tablet 500 mg PO BID potassium chloride 10 mEq capsule, extended release 10 meq PO DAILY carvedilol 12.5 mg tablet 12.5 mg PO BID losartan 25 mg tablet 25 mg PO DAILY bupropion HCl 75 mg tablet 75 mg PO QAM omeprazole 20 mg capsule,delayed release(DR/EC) 20 mg PO DAILY gabapentin 100 mg capsule 100 mg PO DAILY PRN (Reason: Pain) ibuprofen 600 mg tablet 600 mg PO TID albuterol sulfate [Ventolin HFA] 90 mcg/actuation HFA aerosol inhaler 2 inh inhalation Q4H PRN (Reason: Wheezing) escitalopram oxalate 20 mg tablet 20 mg PO DAILY aripiprazole 5 mg tablet 5 mg PO DAILY Farxiga 10 mg tablet 10 mg PO DAILY ondansetron HCl 4 mg tablet 4 mg PO Q8H PRN (Reason: nausea and vomiting) 3 Days Qty: 10 0RF
[2024-01-16] MEDS: Magnesium Hydrox/Alum Hydrox 30 ML ORAL.SUSP 15 ML PO ×2 (07:09→11:39)
[2024-01-16] MEDS: Pantoprazole Sodium 40 MG/10 ML VIAL IVPUSH (07:10)
[2024-01-16] MEDS: Morphine Sulfate 4 MG/ML CARTRIDGE IVPUSH (07:13)
[2024-01-16] MEDS: 0.9 % Sodium Chloride 1,000 ML 999 ML IV (07:19)
[2024-01-16] MEDS: Metoclopramide HCl 10 MG/2 ML VIAL IVPUSH (07:32)
[2024-01-16 07:54] LABS: Troponin-I High Sensitivity 9.6 ng/L (<3.5-35.0)
[2024-01-16 08:48] LABS: Ethanol 32 mg/dL
[2024-01-16 08:49] LABS: Amphetamine Screen Urine Not Detected (Not Detect); Barbiturates, Urine Not Detected (Not Detect); Benzodiazepines Screen Urine Not Detected (Not Detect); Cannabinoid Screen Urine Not Detected (Not Detect); Cocaine Screen Urine Not Detected (Not Detect); Fentanyl, urine Not Detected (Not Detect); Opiate Screen Urine POSITIVE (Not Detect); Phencyclidine Screen Urine Not Detected (Not Detect)
--- NOTE | 2024-01-16 10:47 | MHC.RECOVRN ---
Met with pt in ED17 after pt expressed desire for ATS. Pt had presented to the ED c/o chest pain and vomiting on and off since Monday; had been seen at [facility] with a dx of viral infection. Pt laying in bed, awake, alert, easily engages in conversation. Pt immediately states to t/w I want to go to [facility]. They told me if I ever needed to come back that I should and that's why I'm here. Pt reports SI with a plan; states Take pills. I have a bunch at home that would do it. Pt reports he had been using alcohol x 2 days, 3 big drinks on and Monday last week. Pt is not interested in AUD tx, is focused on inpatient BH treatment. Pt provided with recovery resources if needed. Pt denies other questions or concerns for t/w. Discussed with ED provider.
--- NOTE | 2024-01-16 11:32 | ECG_ITS ---
Test Reason : chest pain Blood Pressure : / mmHG Vent. Rate : 076 BPM Atrial Rate : 076 BPM P-R Int : 212 ms QRS Dur : 094 ms QT Int : 480 ms P-R-T Axes : 032 124 053 degrees QTc Int : 540 ms Sinus rhythm with 1st degree A-V block Low voltage QRS Possible Anterolateral infarct (cited on or before 24-DEC-2022) Abnormal ECG When compared with ECG of 16-JAN-2024 04:51, Questionable change in QRS axis Nonspecific T wave abnormality no longer evident in Inferior leads Referred By: Barb Tirado Electronically Signed By:Daniel Major
--- NOTE | 2024-01-16 11:36 | PC.NURSE ---
Patient transferred from main ED. Patient sweaty complaining of nausea, provider aware and new orders obtained.
[2024-01-16 12:15] LABS: Lipase 8 U/L (8-78)
[2024-01-16] MEDS: LORazepam 1 MG TABLET 2 MG PO ×2 (12:18→21:39)
--- NOTE | 2024-01-16 13:33 | PC.NURSE ---
Patient reports feeling better, ambulating on unit with steady gait. Spoke with mother on phone
[2024-01-16 13:47] LABS: Appearance Urine Clear; Color Urine Yellow; Glucose Urine UA 100 mg/dL (Negative); Leukocyte Esterase Urine Negative (Negative); Nitrite Urine Negative (Negative); UMIC TRIGGER UACC YES; Urine Blood Negative (Negative); Urine Ketones Trace mg/dL (Negative); Urine Protein 30 (1+) mg/dL (Neg-Trace)
[2024-01-16 13:49] LABS: Bacteria Urine None Seen (None Seen); Hyaline Casts Urine 0-2 /LPF (0-2); RBC Urine 0-2 /HPF (0-2); Squamous Epithelial Cell Urine 0-2 /HPF (0-2); WBC Urine 0-5 /HPF (0-5)
[2024-01-16 13:59] LABS: Troponin-I High Sensitivity 12.6 ng/L (<3.5-35.0)
--- NOTE | 2024-01-16 18:26 | PC.NURSE ---
report given to accepting unit
--- NOTE | 2024-01-16 18:45 | PC.NURSE ---
Patient told that he will be going to [facility], patient stating he thinks he changed his mind about staying because he has concerns about using the hospitals cpap machine. Care team notified of situation
[2024-01-16] MEDS: OLANZapine 5 MG TABLET PO (21:39)
[2024-01-17 08:00] VITALS: BP 132/95; PULSE 106; RESP 16; TEMP 37.1; O2SAT 93
[2024-01-17 08:09] LABS: Glucose, Whole Blood 222 mg/dL (60-115)
[2024-01-17] MEDS: Folic Acid 1 MG TABLET PO (08:09)
[2024-01-17] MEDS: Thiamine HCL 100 MG TABLET PO (08:09)
[2024-01-17] MEDS: Insulin Lispro 100 UNIT/ML 3 ML VIAL SUBCUT ×4 (08:10→22:40)
[2024-01-17 10:37] LABS: Estimated Average Glucose 246 mg/dL; Hemoglobin A1c % 10.2 % (<6.0)
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
[2024-01-17 12:39] LABS: Glucose, Whole Blood 248 mg/dL (60-115)
[2024-01-17 16:51] LABS: Alanine Aminotransferase 53 U/L (0-40); Albumin Level 4.2 g/dL (3.5-5.0); Alkaline Phosphatase 103 U/L (39-117); Anion Gap 17 (12-20); Aspartate Amino Transferase 57 U/L (5-37); Bilirubin Total 0.9 mg/dL (0.0-1.0); Blood Urea Nitrogen 12 mg/dL (9-16); Calcium 9.3 mg/dL (8.4-10.2); Carbon Dioxide 28 mmol/L (22-29); Chloride 96 mmol/L (96-108); Cholesterol 160 mg/dL (<200); Creatinine Clr Calc Pharmacy 158.9; Estimated Glomerular Filt Rate > 60; Glucose Fasting 217 mg/dL (60-99); HDL Cholesterol 42 mg/dL (>40); Potassium 3.6 mmol/L (3.3-5.1); Sodium 137 mmol/L (135-145); Total Protein 8.9 g/dL (6.5-8.0); Triglycerides 536 mg/dL (<150)
[2024-01-17 17:38] LABS: Glucose, Whole Blood 241 mg/dL (60-115)
[2024-01-17 18:00] VITALS: BP 144/78; PULSE 87; RESP 16; TEMP 36.2; O2SAT 95
[2024-01-17] MEDS: metFORMIN HCl 500 MG TABLET PO (18:18)
[2024-01-17] MEDS: carvediloL 25 MG TABLET PO (20:44)
[2024-01-17] MEDS: LORazepam 1 MG TABLET PO (20:47)
[2024-01-17 22:47] LABS: Glucose, Whole Blood 202 mg/dL (60-115)
--- NOTE | 2024-01-18 | ECG_ITS ---
Test Reason : qtc check Blood Pressure : / mmHG Vent. Rate : 087 BPM Atrial Rate : 087 BPM P-R Int : 184 ms QRS Dur : 092 ms QT Int : 418 ms P-R-T Axes : 028 -83 005 degrees QTc Int : 502 ms Normal sinus rhythm Left axis deviation Low voltage QRS Cannot rule out Anterior infarct (cited on or before 24-DEC-2022) Prolonged QT Abnormal ECG When compared with ECG of 17-JAN-2024 18:39, Vent. rate has decreased BY 44 BPM T wave inversion more evident in Anterior leads Referred By: Jori Rodriguez Electronically Signed By:Daniel Major
[2024-01-18] MEDS: Omeprazole 40 MG CAPSULE.DR PO (05:23)
--- NOTE | 2024-01-18 08:00 | ECG_ITS ---
Test Reason : awadom Blood Pressure : / mmHG Vent. Rate : 131 BPM Atrial Rate : 131 BPM P-R Int : 120 ms QRS Dur : 090 ms QT Int : 400 ms P-R-T Axes : 000 -83 046 degrees QTc Int : 590 ms Sinus tachycardia Left axis deviation Anterolateral infarct (cited on or before 24-DEC-2022) Inferior infarct Abnormal ECG When compared with ECG of 16-JAN-2024 11:54, IN interval has decreased Vent. rate has increased BY 55 BPM Questionable change in QRS axis Inferior infarct present Referred By: Jori Rodriguez Electronically Signed By:Daniel Major
[2024-01-18 08:19] LABS: Glucose, Whole Blood 182 mg/dL (60-115)
[2024-01-18] MEDS: Thiamine HCL 100 MG TABLET PO (08:47)
[2024-01-18] MEDS: Folic Acid 1 MG TABLET PO (08:47)
[2024-01-18] MEDS: Escitalopram Oxalate 20 MG TABLET PO (08:47)
[2024-01-18] MEDS: Acetaminophen 325 MG TABLET 650 MG PO (08:47)
[2024-01-18] MEDS: Potassium Chloride ER 10 MEQ TABLET.ER PO (08:48)
[2024-01-18] MEDS: metFORMIN HCl 500 MG TABLET PO ×2 (08:48→17:16)
[2024-01-18] MEDS: Losartan Potassium 25 MG TABLET PO (08:48)
[2024-01-18] MEDS: carvediloL 25 MG TABLET PO ×2 (08:48→21:00)
[2024-01-18] MEDS: Insulin Lispro 100 UNIT/ML 3 ML VIAL SUBCUT ×4 (08:49→21:00)
[2024-01-18] MEDS: Atorvastatin Calcium 40 MG TABLET PO (08:49)
[2024-01-18 09:19] VITALS: BP 126/74; PULSE 95; RESP 16; TEMP 36.9; O2SAT 91
[2024-01-18 12:23] LABS: Glucose, Whole Blood 253 mg/dL (60-115)
[2024-01-18] MEDS: Furosemide 40 MG TABLET PO (12:33)
[2024-01-18 16:10] LABS: Anion Gap 15 (12-20); Blood Urea Nitrogen 13 mg/dL (9-16); Calcium 8.7 mg/dL (8.4-10.2); Carbon Dioxide 26 mmol/L (22-29); Chloride 99 mmol/L (96-108); Creatinine Clr Calc Pharmacy 208.1; Estimated Glomerular Filt Rate > 60; Glucose Random 189 mg/dL (60-115); Magnesium 1.8 mg/dL (1.6-2.6); Potassium 3.8 mmol/L (3.3-5.1); Sodium 136 mmol/L (135-145)
[2024-01-18 17:15] LABS: Glucose, Whole Blood 183 mg/dL (60-115)
--- NOTE | 2024-01-18 17:30 | P.EN_ITS ---
Event Note Date of Service: 01/18/24 Event Note: Hospitalist consult patient with EKG showing prolonged QTc of 590. Repeat shows improved QTc of 502, normal sinus rhythm with left axis deviation and T-wave inversions in V1, V2, and V3, but no evidence of significant ST elevations or depressions. Would recommend keeping potassium >4.0 and magnesium >2.0. Also hold any QT prolonging medications. Will hold ondansetron for now. Please re- consult if patient develops symptoms or any acute issues arise. Time Spent With Patient Time: Total time managing care of this patient today ____ minutes.
[2024-01-18 18:00] VITALS: BP 125/73; PULSE 92; TEMP 36.4; O2SAT 93
[2024-01-18 20:51] LABS: Glucose, Whole Blood 179 mg/dL (60-115)
--- NOTE | 2024-01-18 21:53 | HO.PSYCHPN ---
Subjective Subjective Date of Service: 01/11/24 Reason For Visit: depression Subjective Notes: Conditional Voluntary and 3 Day Interim History: pt depressed no active si ekg inc qtc 590 hosp consult reviewed escitalopram d/c Medication Compliance: Yes Side effects from medications: Yes Mental Status Exam Mental Status Exam Patient Appearance: Appropriate Patient Orientation: Person, Place, Time and Situation Level of Consciousness: Alert Patient Behavior: Appropriate, Talkative, Cooperative and Good Eye Contact Mood Description: Constricted and Depressed (improving) Affect Description: Constricted and Depressed Patient Cognition Impaired: No Ability to Follow Directions: Good Speech Pattern: Spontaneous Speech Memory Description: Intact Hallucinations: None Delusions: Not Present Thought Process: Intact and Goal Oriented Thought Content: positive for Circumstantial and positive for Goal Oriented Depressive Symptoms: Increased Irritability, Increased Fatigue, Thoughts of /Suicide (denies) and Loss of Energy Judgement: Fair Judgement and Insight: Unclear why patient has not been able to [place] access ongoing treatment Diagnostics Vital Signs (24Hr): Vital Signs - 24 hr 01/18/24 09:19 Temperature 98.4 F Pulse Rate 95 Respiratory Rate 16 Blood Pressure 126/74 Pulse Oximetry 91 L Oxygen Delivery Method Room Air BMI result Body Mass Index 57.2 Labs 01/16/24 05:05 01/18/24 15:50 Labs: Laboratory Results - last 48 hr 01/16/24 01/17/24 01/17/24 05:05 07:58 08:32 Sodium Potassium Chloride Carbon Dioxide Anion Gap BUN Creatinine Estim Creat Clear Calc Estimated GFR POC Glucose 222 H Random Glucose Fasting Glucose Estimat Average Glucose 246 Cancelled Hgb A1c Fingerstick Cancelled Hemoglobin A1c % 10.2 H Cancelled Calcium Magnesium Total Bilirubin AST ALT Alkaline Phosphatase Total Protein Albumin Triglycerides Cholesterol LDL Cholesterol, Calc HDL Cholesterol 01/17/24 01/17/24 01/17/24 12:35 16:28 17:24 Sodium 137 Potassium 3.6 Chloride 96 Carbon Dioxide 28 Anion Gap 17 BUN 12 Creatinine 0.93 Estim Creat Clear Calc 158.9 Estimated GFR > 60 POC Glucose 248 H 241 H Random Glucose Fasting Glucose 217 H Estimat Average Glucose Hgb A1c Fingerstick Hemoglobin A1c % Calcium 9.3 D Magnesium Total Bilirubin 0.9 AST 57 H ALT 53 H Alkaline Phosphatase 103 Total Protein 8.9 H Albumin 4.2 Triglycerides 536 H Cholesterol 160 LDL Cholesterol, Calc TNP HDL Cholesterol 42 03/05/0601/18/24 01/18/24 22:35 08:06 12:19 Sodium Potassium Chloride Carbon Dioxide Anion Gap BUN Creatinine Estim Creat Clear Calc Estimated GFR POC Glucose 202 H 182 H 253 H Random Glucose Fasting Glucose Estimat Average Glucose Hgb A1c Fingerstick Hemoglobin A1c % Calcium Magnesium Total Bilirubin AST ALT Alkaline Phosphatase Total Protein Albumin Triglycerides Cholesterol LDL Cholesterol, Calc HDL Cholesterol 01/18/24 01/18/24 01/18/24 15:50 17:04 20:46 Sodium 136 Potassium 3.8 Chloride 99 Carbon Dioxide 26 Anion Gap 15 BUN 13 Creatinine 0.71 Estim Creat Clear Calc 208.1 Estimated GFR > 60 POC Glucose 183 H 179 H Random Glucose 189 H Fasting Glucose Estimat Average Glucose Hgb A1c Fingerstick Hemoglobin A1c % Calcium 8.7 D Magnesium 1.8 Total Bilirubin AST ALT Alkaline Phosphatase Total Protein Albumin Triglycerides Cholesterol LDL Cholesterol, Calc HDL Cholesterol Imaging Radiology Impressions: ITS Impressions Chest X-Ray 01/16/24 07:49 IMPRESSION: Hypoinflation. Limited assessment of the left lower chest with no definite focal pneumonia or edema Medications Medications Current Medications Acetaminophen (Acetaminophen 325 Mg Tablet) 650 mg PO Q6H PRN PRN Reason: Headache/Pain Mild Scale (1-3) Last Admin: 01/18/24 08:47 Dose: 650 mg Al Hydroxide/Mg Hydroxide (Magnesium Hydrox/Alum Hydrox 30 Ml Oral.Susp) 30 ml PO Q6H PRN PRN Reason: Heartburn/Nausea Atorvastatin Calcium (Atorvastatin Calcium 40 Mg Tablet) 40 mg PO DAILY [facility] Last Admin: 01/18/24 08:49 Dose: 40 mg Carvedilol (Carvedilol 25 Mg Tablet) 25 mg PO BID [facility]; Protocol Last Admin: 01/18/24 21:00 Dose: 25 mg Folic Acid (Folic Acid 1 Mg Tablet) 1 mg PO DAILY [facility] Last Admin: 01/18/24 08:47 Dose: 1 mg Furosemide (Furosemide 40 Mg Tablet) 40 mg PO DAILY [facility]; Protocol Last Admin: 01/18/24 12:33 Dose: 40 mg Insulin Human Lispro (Insulin Lispro 100 Unit/Ml 3 Ml Vial) 0 unit SUBCUT QIDACHS [facility]; Protocol Last Admin: 01/18/24 21:00 Dose: 2 unit Lidocaine (Lidocaine 5 % Ointment 35 Gm) 1 appl TOPICAL Q6H PRN; Protocol PRN Reason: Pain, Moderate(Pain Scale 4-6) Lorazepam (Lorazepam 1 Mg Tablet) 1 mg PO Q2H PRN PRN Reason: CIWA 6-10 Last Admin: 01/17/24 20:47 Dose: 1 mg Lorazepam (Lorazepam 1 Mg Tablet) 2 mg PO Q2H PRN PRN Reason: CIWA 11 and above Last Admin: 01/16/24 21:39 Dose: 2 mg Losartan Potassium (Losartan Potassium 25 Mg Tablet) 25 mg PO DAILY [facility]; Protocol Last Admin: 01/18/24 08:48 Dose: 25 mg Magnesium Hydroxide (Milk Of Magnesia 30 Ml Oral.Susp) 30 ml PO DAILY PRN PRN Reason: Constipation Metformin HCl (Metformin Hcl 500 Mg Tablet) 500 mg PO BIDWM [facility] Last Admin: 01/18/24 17:16 Dose: 500 mg Nicotine (Nicotine 21 Mg Patch.Td24) 21 mg TRANSDERMA DAILY PRN PRN Reason: smoking cessation Nicotine Polacrilex (Nicotine Polacrilex 2 Mg Gum) 4 mg BUCCAL Q2H PRN PRN Reason: Nicotine Cravings Olanzapine (Olanzapine 5 Mg Tablet) 5 mg PO TID PRN PRN Reason: agitation Last Admin: 01/16/24 21:39 Dose: 5 mg Omeprazole (Omeprazole 40 Mg Capsule.Dr) 40 mg PO DAILY@0630 [facility] Last Admin: 01/18/24 05:23 Dose: 40 mg Potassium Chloride (Potassium Chloride Er 20 Meq Tab.Er.Prt) 20 meq PO DAILY [facility] Thiamine HCl (Thiamine Hcl 100 Mg Tablet) 100 mg PO DAILY [facility] Last Admin: 01/18/24 08:47 Dose: 100 mg Trazodone HCl (Trazodone Hcl 50 Mg Tablet) 50 mg PO BEDTIME MRX1 PRN PRN Reason: Insomnia Allergies Allergies Allergy/AdvReac Type Severity Reaction Status Date / Time No Known Allergies Allergy Verified 01/16/24 05:32 Assessment & Plan Assessment & Plan (1) TERRIE on CPAP: Status: Acute Code(s): G47.33 - Obstructive sleep apnea (adult) (pediatric); Z99.89 - Dependence on other enabling machines and devices (2) Morbid obesity: Status: Acute Code(s): E66.01 - Morbid (severe) obesity due to excess calories (3) MDD (major depressive disorder), recurrent episode, moderate: Status: Acute Code(s): F33.1 - Major depressive disorder, recurrent, moderate (4) Alcohol use disorder, severe, dependence: Status: Acute Code(s): F10.20 - Alcohol dependence, uncomplicated Plan Patient admitted depression thoughts of suicide which he is currently denying in the context of chronic intermittent significant alcohol use chronic medical difficulties and recent GI symptoms and abdominal pain. Restart medication for hypertension diabetes reported history congestive heart failure Lexapro recheck EKG and QTC particularly on Lexapro would benefit from more structured ongoing treatment evaluate safety patient was asking for help in the emergency room he did put in a 3 day notice Patient was admitted on conditional voluntary currently no active psychiatric services reportedly no therapy services has not been able to meet he states with his PCP on any regular basis labs CBC unremarkable 01/18/24 Patient with increased QTC 590 spoke with hospitalist service. Hydroxyzine will stop Lexapro for now recheck EKG labs either continue Lexapro at lower dose or stop EKG qtc has run in the low 500s in the past Reason for continued inpatient stay Substantial Risk for: harm to self, rapid decompensation and med/psych decompensation Time Spent With Patient Time: Total time managing care of this patient today ____ minutes.
[2024-01-19] MEDS: Omeprazole 40 MG CAPSULE.DR PO (05:32)
--- NOTE | 2024-01-19 08:00 | ECG_ITS ---
Test Reason : qtc check Blood Pressure : / mmHG Vent. Rate : 081 BPM Atrial Rate : 081 BPM P-R Int : 190 ms QRS Dur : 096 ms QT Int : 422 ms P-R-T Axes : 060 -59 024 degrees QTc Int : 490 ms Normal sinus rhythm Left axis deviation Low voltage QRS Cannot rule out Anterior infarct (cited on or before 24-DEC-2022) Nonspecific ST-T changes Abnormal ECG When compared with ECG of 18-JAN-2024 15:56, No significant change was found Referred By: Jori Rodriguez Electronically Signed By:Daniel Major
[2024-01-19 08:10] VITALS: BP 106/69; PULSE 96; RESP 18; TEMP 36; O2SAT 92
[2024-01-19 08:51] LABS: Glucose, Whole Blood 161 mg/dL (60-115)
[2024-01-19] MEDS: Insulin Lispro 100 UNIT/ML 3 ML VIAL SUBCUT ×3 (09:17→17:44)
[2024-01-19] MEDS: Thiamine HCL 100 MG TABLET PO (09:18)
[2024-01-19] MEDS: Atorvastatin Calcium 40 MG TABLET PO (09:18)
[2024-01-19] MEDS: Furosemide 40 MG TABLET PO (09:18)
[2024-01-19] MEDS: Losartan Potassium 25 MG TABLET PO (09:18)
[2024-01-19] MEDS: Potassium Chloride ER 20 MEQ TAB.ER.PRT PO (09:18)
[2024-01-19] MEDS: carvediloL 25 MG TABLET PO ×2 (09:18→22:27)
[2024-01-19] MEDS: metFORMIN HCl 500 MG TABLET PO ×2 (09:18→17:44)
[2024-01-19] MEDS: Folic Acid 1 MG TABLET PO (09:19)
[2024-01-19] MEDS: Naltrexone HCl 50 MG TABLET 25 MG PO (10:58)
[2024-01-19] MEDS: Sertraline HCL 50 MG TABLET PO (10:58)
[2024-01-19 12:18] LABS: Glucose, Whole Blood 221 mg/dL (60-115)
[2024-01-19] MEDS: Magnesium Hydrox/Alum Hydrox 30 ML ORAL.SUSP PO ×2 (15:03→22:28)
[2024-01-19 17:39] LABS: Glucose, Whole Blood 153 mg/dL (60-115)
[2024-01-19] MEDS: Loperamide HCl 2 MG CAPSULE 4 MG PO (17:43)
[2024-01-19 22:09] LABS: Glucose, Whole Blood 156 mg/dL (60-115)
[2024-01-19 22:15] VITALS: BP 122/66; PULSE 95; TEMP 36.1
--- NOTE | 2024-01-19 22:58 | HO.PSYCHPN ---
Subjective Subjective Date of Service: 01/19/24 Reason For Visit: depression Subjective Notes: Conditional Voluntary Interim History: Patient agreeable to stopping escitalopram secondary to increased QTC and stopping hydroxyzine. Agreeable to starting naltrexone for alcohol craving LFTs unremarkable referral to IOP patient participatory active Mental Status Exam Mental Status Exam Patient Appearance: Appropriate Patient Orientation: Person, Place, Time and Situation Level of Consciousness: Alert Patient Behavior: Appropriate, Talkative, Cooperative and Good Eye Contact Mood Description: Constricted and Depressed (improving) Affect Description: Constricted and Depressed Patient Cognition Impaired: No Ability to Follow Directions: Good Speech Pattern: Spontaneous Speech Memory Description: Intact Hallucinations: None Delusions: Not Present Thought Process: Intact and Goal Oriented Thought Content: positive for Circumstantial and positive for Goal Oriented Depressive Symptoms: Increased Irritability, Increased Fatigue, Thoughts of /Suicide (denies) and Loss of Energy Judgement: Fair Judgement and Insight: Unclear why patient has not been able to [place] access ongoing treatment Diagnostics Vital Signs (24Hr): Vital Signs - 24 hr 01/19/24 08:10 01/19/24 22:15 Temperature 96.8 F 97.0 F Pulse Rate 96 95 Respiratory Rate 18 Blood Pressure 106/69 122/66 Pulse Oximetry 92 Oxygen Delivery Method Room Air BMI result Body Mass Index 57.2 Labs 01/16/24 05:05 01/18/24 15:50 Labs: Laboratory Results - last 48 hr 01/18/24 01/18/24 01/18/24 08:06 12:19 15:50 Sodium 136 Potassium 3.8 Chloride 99 Carbon Dioxide 26 Anion Gap 15 BUN 13 Creatinine 0.71 Estim Creat Clear Calc 208.1 Estimated GFR > 60 POC Glucose 182 H 253 H Random Glucose 189 H Calcium 8.7 D Magnesium 1.8 01/18/24 01/18/24 01/19/24 17:04 20:46 08:48 Sodium Potassium Chloride Carbon Dioxide Anion Gap BUN Creatinine Estim Creat Clear Calc Estimated GFR POC Glucose 183 H 179 H 161 H Random Glucose Calcium Magnesium 01/19/24 01/19/24 01/19/24 12:14 17:27 22:06 Sodium Potassium Chloride Carbon Dioxide Anion Gap BUN Creatinine Estim Creat Clear Calc Estimated GFR POC Glucose 221 H 153 H 156 H Random Glucose Calcium Magnesium Imaging Radiology Impressions: ITS Impressions Chest X-Ray 01/16/24 07:49 IMPRESSION: Hypoinflation. Limited assessment of the left lower chest with no definite focal pneumonia or edema Medications Medications Current Medications Acetaminophen (Acetaminophen 325 Mg Tablet) 650 mg PO Q6H PRN PRN Reason: Headache/Pain Mild Scale (1-3) Last Admin: 01/18/24 08:47 Dose: 650 mg Al Hydroxide/Mg Hydroxide (Magnesium Hydrox/Alum Hydrox 30 Ml Oral.Susp) 30 ml PO Q6H PRN PRN Reason: Heartburn/Nausea Last Admin: 01/19/24 22:28 Dose: 30 ml Atorvastatin Calcium (Atorvastatin Calcium 40 Mg Tablet) 40 mg PO DAILY [facility] Last Admin: 01/19/24 09:18 Dose: 40 mg Carvedilol (Carvedilol 25 Mg Tablet) 25 mg PO BID [facility]; Protocol Last Admin: 01/19/24 22:27 Dose: 25 mg Folic Acid (Folic Acid 1 Mg Tablet) 1 mg PO DAILY [facility] Last Admin: 01/19/24 09:19 Dose: 1 mg Furosemide (Furosemide 40 Mg Tablet) 40 mg PO DAILY [facility]; Protocol Last Admin: 01/19/24 09:18 Dose: 40 mg Insulin Human Lispro (Insulin Lispro 100 Unit/Ml 3 Ml Vial) 0 unit SUBCUT QIDACHS [facility]; Protocol Last Admin: 01/19/24 22:08 Dose: Not Given Lidocaine (Lidocaine 5 % Ointment 35 Gm) 1 appl TOPICAL Q6H PRN; Protocol PRN Reason: Pain, Moderate(Pain Scale 4-6) Loperamide HCl (Loperamide Hcl 2 Mg Capsule) 2 mg PO Q4H PRN PRN Reason: Loose Stool Lorazepam (Lorazepam 1 Mg Tablet) 1 mg PO Q2H PRN PRN Reason: CIWA 6-10 Last Admin: 01/17/24 20:47 Dose: 1 mg Lorazepam (Lorazepam 1 Mg Tablet) 2 mg PO Q2H PRN PRN Reason: CIWA 11 and above Last Admin: 01/16/24 21:39 Dose: 2 mg Losartan Potassium (Losartan Potassium 25 Mg Tablet) 25 mg PO DAILY [facility]; Protocol Last Admin: 01/19/24 09:18 Dose: 25 mg Magnesium Hydroxide (Milk Of Magnesia 30 Ml Oral.Susp) 30 ml PO DAILY PRN PRN Reason: Constipation Metformin HCl (Metformin Hcl 500 Mg Tablet) 500 mg PO BIDWM [facility] Last Admin: 01/19/24 17:44 Dose: 500 mg Naltrexone HCl (Naltrexone Hcl 50 Mg Tablet) 25 mg PO DAILY [facility] Last Admin: 01/19/24 10:58 Dose: 25 mg Nicotine (Nicotine 21 Mg Patch.Td24) 21 mg TRANSDERMA DAILY PRN PRN Reason: smoking cessation Nicotine Polacrilex (Nicotine Polacrilex 2 Mg Gum) 4 mg BUCCAL Q2H PRN PRN Reason: Nicotine Cravings Olanzapine (Olanzapine 5 Mg Tablet) 5 mg PO TID PRN PRN Reason: agitation Last Admin: 01/16/24 21:39 Dose: 5 mg Omeprazole (Omeprazole 40 Mg Capsule.Dr) 40 mg PO DAILY@0630 [facility] Last Admin: 01/19/24 05:32 Dose: 40 mg Potassium Chloride (Potassium Chloride Er 20 Meq Tab.Er.Prt) 20 meq PO DAILY [facility] Last Admin: 01/19/24 09:18 Dose: 20 meq Sertraline HCl (Sertraline Hcl 50 Mg Tablet) 50 mg PO DAILY [facility] Last Admin: 01/19/24 10:58 Dose: 50 mg Thiamine HCl (Thiamine Hcl 100 Mg Tablet) 100 mg PO DAILY [facility] Last Admin: 01/19/24 09:18 Dose: 100 mg Trazodone HCl (Trazodone Hcl 50 Mg Tablet) 50 mg PO BEDTIME MRX1 PRN PRN Reason: Insomnia Allergies Allergies Allergy/AdvReac Type Severity Reaction Status Date / Time No Known Allergies Allergy Verified 01/16/24 05:32 Assessment & Plan Assessment & Plan (1) MDD (major depressive disorder), recurrent episode, moderate: Status: Acute Code(s): F33.1 - Major depressive disorder, recurrent, moderate (2) TERRIE on CPAP: Status: Acute Code(s): G47.33 - Obstructive sleep apnea (adult) (pediatric); Z99.89 - Dependence on other enabling machines and devices (3) Morbid obesity: Status: Acute Code(s): E66.01 - Morbid (severe) obesity due to excess calories (4) Alcohol use disorder, severe, dependence: Status: Acute Code(s): F10.20 - Alcohol dependence, uncomplicated Plan Patient admitted depression thoughts of suicide which he is currently denying in the context of chronic intermittent significant alcohol use chronic medical difficulties and recent GI symptoms and abdominal pain. Restart medication for hypertension diabetes reported history congestive heart failure Lexapro recheck EKG and QTC particularly on Lexapro would benefit from more structured ongoing treatment evaluate safety patient was asking for help in the emergency room he did put in a 3 day notice Patient was admitted on conditional voluntary currently no active psychiatric services reportedly no therapy services has not been able to meet he states with his PCP on any regular basis labs CBC unremarkable 01/18/24 Patient with increased QTC 590 spoke with hospitalist service. Hydroxyzine will stop Lexapro for now recheck EKG labs either continue Lexapro at lower dose or stop EKG qtc has run in the low 500s in the past 01/19/2024 Stop Lexapro start sertraline referral to IOP 3 day notice withdrawn monitor labs and EKG over the next few days Reason for continued inpatient stay Substantial Risk for: harm to self, rapid decompensation and med/psych decompensation Time Spent With Patient Time: Total time managing care of this patient today ____ minutes.
[2024-01-20] MEDS: Omeprazole 40 MG CAPSULE.DR PO (05:41)
[2024-01-20 08:12] VITALS: BP 113/56; PULSE 76; RESP 16; TEMP 36.2; O2SAT 92
[2024-01-20 08:39] LABS: Anion Gap 14 (12-20); Blood Urea Nitrogen 10 mg/dL (9-16); Calcium 8.8 mg/dL (8.4-10.2); Carbon Dioxide 29 mmol/L (22-29); Chloride 103 mmol/L (96-108); Estimated Glomerular Filt Rate > 60; Glucose Random 204 mg/dL (60-115); Sodium 142 mmol/L (135-145)
[2024-01-20 08:55] LABS: Glucose, Whole Blood 204 mg/dL (60-115)
[2024-01-20] MEDS: Losartan Potassium 25 MG TABLET PO (09:01)
[2024-01-20] MEDS: Thiamine HCL 100 MG TABLET PO (09:01)
[2024-01-20] MEDS: metFORMIN HCl 500 MG TABLET PO ×2 (09:01→17:53)
[2024-01-20] MEDS: carvediloL 25 MG TABLET PO ×2 (09:01→20:24)
[2024-01-20] MEDS: Atorvastatin Calcium 40 MG TABLET PO (09:02)
[2024-01-20] MEDS: Loperamide HCl 2 MG CAPSULE PO ×2 (09:02→17:53)
[2024-01-20] MEDS: Sertraline HCL 50 MG TABLET PO (09:02)
[2024-01-20] MEDS: Potassium Chloride ER 20 MEQ TAB.ER.PRT PO (09:02)
[2024-01-20] MEDS: Naltrexone HCl 50 MG TABLET 25 MG PO (09:02)
[2024-01-20] MEDS: Folic Acid 1 MG TABLET PO (09:02)
[2024-01-20] MEDS: Furosemide 40 MG TABLET PO (09:02)
[2024-01-20] MEDS: Insulin Lispro 100 UNIT/ML 3 ML VIAL SUBCUT ×3 (09:03→20:24)
[2024-01-20] MEDS: Magnesium Hydrox/Alum Hydrox 30 ML ORAL.SUSP PO ×2 (09:03→17:53)
--- NOTE | 2024-01-20 10:31 | P.PNPSI_ITS ---
Subjective Subjective Date of Service: 01/20/24 Reason For Visit: depression Interim History: Met with patient; discussed with team Patient reports he is overall feeling better; tolerating Zoloft. Express some upset feelings about having the EKG done in the exam room and that his back is hurting a little from being on that small table. Otherwise no complaints and no requests. Dc'd [place] 01/18 EKG QTc Int : 490 ms Mental Status Exam Mental Status Exam Patient Appearance: Appropriate Patient Orientation: Person, Place, Time and Situation Level of Consciousness: Alert Patient Behavior: Appropriate, Talkative, Cooperative and Good Eye Contact Mood Description: Depressed (However reports improving) Affect Description: Calm Patient Cognition Impaired: No Ability to Follow Directions: Good Speech Pattern: Spontaneous Speech Memory Description: Intact Hallucinations: None Delusions: Not Present Thought Process: Intact (No SI/HI) and Goal Oriented Thought Content: positive for Goal Oriented Judgement: Fair Judgement and Insight: Unclear why patient has not been able to Access ongoing treatment Diagnostics Vital Signs (24Hr): Vital Signs - 24 hr 01/19/24 22:15 01/20/24 08:12 Temperature 97.0 F 97.2 F Pulse Rate 95 76 Respiratory Rate 16 Blood Pressure 122/66 113/56 L Pulse Oximetry 92 Oxygen Delivery Method Room Air BMI result Body Mass Index 57.2 Labs 01/16/24 05:05 01/20/24 08:05 Labs: Laboratory Results - last 48 hr 01/18/24 01/18/24 01/18/24 12:19 15:50 17:04 Sodium 136 Potassium 3.8 Chloride 99 Carbon Dioxide 26 Anion Gap 15 BUN 13 Creatinine 0.71 Estim Creat Clear Calc 208.1 Estimated GFR > 60 POC Glucose 253 H 183 H Random Glucose 189 H Calcium 8.7 D Magnesium 1.8 01/18/24 01/19/24 01/19/24 20:46 08:48 12:14 Sodium Potassium Chloride Carbon Dioxide Anion Gap BUN Creatinine Estim Creat Clear Calc Estimated GFR POC Glucose 179 H 161 H 221 H Random Glucose Calcium Magnesium 01/19/24 01/19/24 01/20/24 17:27 22:06 08:05 Sodium 142 Potassium 4.0 Chloride 103 Carbon Dioxide 29 Anion Gap 14 BUN 10 Creatinine 0.79 Estim Creat Clear Calc 187.0 Estimated GFR > 60 POC Glucose 153 H 156 H Random Glucose 204 H Calcium 8.8 Magnesium 01/20/24 08:52 Sodium Potassium Chloride Carbon Dioxide Anion Gap BUN Creatinine Estim Creat Clear Calc Estimated GFR POC Glucose 204 H Random Glucose Calcium Magnesium Imaging Radiology Impressions: ITS Impressions Chest X-Ray 01/16/24 07:49 IMPRESSION: Hypoinflation. Limited assessment of the left lower chest with no definite focal pneumonia or edema Medications Medications Current Medications Acetaminophen (Acetaminophen 325 Mg Tablet) 650 mg PO Q6H PRN PRN Reason: Headache/Pain Mild Scale (1-3) Last Admin: 01/18/24 08:47 Dose: 650 mg Al Hydroxide/Mg Hydroxide (Magnesium Hydrox/Alum Hydrox 30 Ml Oral.Susp) 30 ml PO Q6H PRN PRN Reason: Heartburn/Nausea Last Admin: 01/20/24 09:03 Dose: 30 ml Atorvastatin Calcium (Atorvastatin Calcium 40 Mg Tablet) 40 mg PO DAILY [facility] Last Admin: 01/20/24 09:02 Dose: 40 mg Carvedilol (Carvedilol 25 Mg Tablet) 25 mg PO BID [facility]; Protocol Last Admin: 01/20/24 09:01 Dose: 25 mg Folic Acid (Folic Acid 1 Mg Tablet) 1 mg PO DAILY [facility] Last Admin: 01/20/24 09:02 Dose: 1 mg Furosemide (Furosemide 40 Mg Tablet) 40 mg PO DAILY [facility]; Protocol Last Admin: 01/20/24 09:02 Dose: 40 mg Insulin Human Lispro (Insulin Lispro 100 Unit/Ml 3 Ml Vial) 0 unit SUBCUT QIDACHS [facility]; Protocol Last Admin: 01/20/24 09:03 Dose: 4 unit Lidocaine (Lidocaine 5 % Ointment 35 Gm) 1 appl TOPICAL Q6H PRN; Protocol PRN Reason: Pain, Moderate(Pain Scale 4-6) Loperamide HCl (Loperamide Hcl 2 Mg Capsule) 2 mg PO Q4H PRN PRN Reason: Loose Stool Last Admin: 01/20/24 09:02 Dose: 2 mg Lorazepam (Lorazepam 1 Mg Tablet) 1 mg PO Q2H PRN PRN Reason: CIWA 6-10 Last Admin: 01/17/24 20:47 Dose: 1 mg Lorazepam (Lorazepam 1 Mg Tablet) 2 mg PO Q2H PRN PRN Reason: CIWA 11 and above Last Admin: 01/16/24 21:39 Dose: 2 mg Losartan Potassium (Losartan Potassium 25 Mg Tablet) 25 mg PO DAILY [facility]; Protocol Last Admin: 01/20/24 09:01 Dose: 25 mg Magnesium Hydroxide (Milk Of Magnesia 30 Ml Oral.Susp) 30 ml PO DAILY PRN PRN Reason: Constipation Metformin HCl (Metformin Hcl 500 Mg Tablet) 500 mg PO BIDWM [facility] Last Admin: 01/20/24 09:01 Dose: 500 mg Naltrexone HCl (Naltrexone Hcl 50 Mg Tablet) 25 mg PO DAILY [facility] Last Admin: 01/20/24 09:02 Dose: 25 mg Nicotine (Nicotine 21 Mg Patch.Td24) 21 mg TRANSDERMA DAILY PRN PRN Reason: smoking cessation Nicotine Polacrilex (Nicotine Polacrilex 2 Mg Gum) 4 mg BUCCAL Q2H PRN PRN Reason: Nicotine Cravings Olanzapine (Olanzapine 5 Mg Tablet) 5 mg PO TID PRN PRN Reason: agitation Last Admin: 01/16/24 21:39 Dose: 5 mg Omeprazole (Omeprazole 40 Mg Capsule.Dr) 40 mg PO DAILY@0630 [facility] Last Admin: 01/20/24 05:41 Dose: 40 mg Potassium Chloride (Potassium Chloride Er 20 Meq Tab.Er.Prt) 20 meq PO DAILY [facility] Last Admin: 01/20/24 09:02 Dose: 20 meq Sertraline HCl (Sertraline Hcl 50 Mg Tablet) 50 mg PO DAILY [facility] Last Admin: 01/20/24 09:02 Dose: 50 mg Thiamine HCl (Thiamine Hcl 100 Mg Tablet) 100 mg PO DAILY [facility] Last Admin: 01/20/24 09:01 Dose: 100 mg Trazodone HCl (Trazodone Hcl 50 Mg Tablet) 50 mg PO BEDTIME MRX1 PRN PRN Reason: Insomnia Allergies Allergies Allergy/AdvReac Type Severity Reaction Status Date / Time No Known Allergies Allergy Verified 01/16/24 05:32 Assessment & Plan Assessment & Plan (1) MDD (major depressive disorder), recurrent episode, moderate: Status: Acute Code(s): F33.1 - Major depressive disorder, recurrent, moderate (2) TERRIE on CPAP: Status: Acute Code(s): G47.33 - Obstructive sleep apnea (adult) (pediatric); Z99.89 - Dependence on other enabling machines and devices (3) Morbid obesity: Status: Acute Code(s): E66.01 - Morbid (severe) obesity due to excess calories (4) Alcohol use disorder, severe, dependence: Status: Acute Code(s): F10.20 - Alcohol dependence, uncomplicated Plan Patient admitted depression thoughts of suicide which he is currently denying in the context of chronic intermittent significant alcohol use chronic medical difficulties and recent GI symptoms and abdominal pain. Restart medication for hypertension diabetes reported history congestive heart failure Lexapro recheck EKG and QTC particularly on Lexapro would benefit from more structured ongoing treatment evaluate safety patient was asking for help in the emergency room he did put in a 3 day notice Patient was admitted on conditional voluntary currently no active psychiatric services reportedly no therapy services has not been able to meet he states with his PCP on any regular basis labs CBC unremarkable 01/18/24 Patient with increased QTC 590 spoke with hospitalist service. Hydroxyzine will stop Lexapro for now recheck EKG labs either continue Lexapro at lower dose or stop EKG qtc has run in the low 500s in the past 01/19/2024 Stop Lexapro start sertraline referral to IOP 3 day notice withdrawn monitor labs and EKG over the next few days 01/20/2024 Patient reports mood is improved; tolerating sertraline. 01/18 EKG QTc Int : 490 ms Discontinue CIWA; patient longer scoring Patient educated on: diagnosis and medication risk/benefits Informed Consent: understands Reason for continued inpatient stay Substantial Risk for: stable for discharge Time Spent With Patient Time: Total time managing care of this patient today ____ minutes.
[2024-01-20 12:38] LABS: Glucose, Whole Blood 199 mg/dL (60-115)
[2024-01-20 17:04] VITALS: BP 142/69; PULSE 80; RESP 16; TEMP 36.9; O2SAT 96
[2024-01-20 17:43] LABS: Glucose, Whole Blood 143 mg/dL (60-115)
[2024-01-20 20:16] LABS: Glucose, Whole Blood 176 mg/dL (60-115)
[2024-01-20] MEDS: Acetaminophen 325 MG TABLET 650 MG PO (20:24)
[2024-01-20] MEDS: Lidocaine 5 % Ointment 35 GM 1 APPL TOPICAL (20:56)
[2024-01-21] MEDS: Omeprazole 40 MG CAPSULE.DR PO (06:11)
[2024-01-21 08:36] LABS: Glucose, Whole Blood 151 mg/dL (60-115)
[2024-01-21 09:00] VITALS: BP 110/57; PULSE 72; RESP 18; TEMP 36.1; O2SAT 92
[2024-01-21] MEDS: Insulin Lispro 100 UNIT/ML 3 ML VIAL SUBCUT ×3 (09:09→17:32)
[2024-01-21] MEDS: Potassium Chloride ER 20 MEQ TAB.ER.PRT PO (09:11)
[2024-01-21] MEDS: Sertraline HCL 50 MG TABLET PO (09:11)
[2024-01-21] MEDS: Furosemide 40 MG TABLET PO (09:11)
[2024-01-21] MEDS: Atorvastatin Calcium 40 MG TABLET PO (09:11)
[2024-01-21] MEDS: metFORMIN HCl 500 MG TABLET PO ×2 (09:11→16:50)
[2024-01-21] MEDS: Losartan Potassium 25 MG TABLET PO (09:11)
[2024-01-21] MEDS: carvediloL 25 MG TABLET PO ×2 (09:11→20:10)
[2024-01-21] MEDS: Folic Acid 1 MG TABLET PO (09:11)
[2024-01-21] MEDS: Naltrexone HCl 50 MG TABLET 25 MG PO (09:11)
[2024-01-21] MEDS: Thiamine HCL 100 MG TABLET PO (09:12)
[2024-01-21] MEDS: Loperamide HCl 2 MG CAPSULE PO (09:18)
[2024-01-21] MEDS: Lidocaine 5 % Ointment 35 GM 1 APPL TOPICAL (09:18)
--- NOTE | 2024-01-21 11:03 | P.PNPSI_ITS ---
Subjective Subjective Date of Service: 01/21/24 Reason For Visit: depression Interim History: met with patient; discussed with team pt reports mood remains better; no problems with Zoloft. Back still bothering him from being on small exam table and asks for Dicofenac which he says he takes at home. Saying he's ready to go home tomorrow. Asks for ibuprofen + Tylenol for ride home.. Mental Status Exam Mental Status Exam Patient Appearance: Appropriate Patient Orientation: Person, Place, Time and Situation Level of Consciousness: Alert Patient Behavior: Appropriate, Talkative, Cooperative and Good Eye Contact Mood Description: Appropriate (no si) Affect Description: Calm Patient Cognition Impaired: No Ability to Follow Directions: Good Speech Pattern: Spontaneous Speech Memory Description: Intact Hallucinations: None Delusions: Not Present Thought Process: Intact (No SI/HI) and Goal Oriented Thought Content: positive for Goal Oriented Judgement: Fair Judgement and Insight: Unclear why patient has not been able to Access ongoing treatment Diagnostics Vital Signs (24Hr): Vital Signs - 24 hr 01/20/24 17:04 01/21/24 09:00 Temperature 98.4 F 97 F Pulse Rate 80 72 Respiratory Rate 16 18 Blood Pressure 142/69 H 110/57 L Pulse Oximetry 96 92 Oxygen Delivery Method Room Air Room Air BMI result Body Mass Index 57.2 Labs 01/16/24 05:05 01/20/24 08:05 Labs: Laboratory Results - last 48 hr 01/19/24 01/19/24 01/19/24 12:14 17:27 22:06 Sodium Potassium Chloride Carbon Dioxide Anion Gap BUN Creatinine Estim Creat Clear Calc Estimated GFR POC Glucose 221 H 153 H 156 H Random Glucose Calcium 01/20/24 01/20/24 01/20/24 08:05 08:52 12:34 Sodium 142 Potassium 4.0 Chloride 103 Carbon Dioxide 29 Anion Gap 14 BUN 10 Creatinine 0.79 Estim Creat Clear Calc 187.0 Estimated GFR > 60 POC Glucose 204 H 199 H Random Glucose 204 H Calcium 8.8 01/20/24 01/20/24 01/21/24 17:39 20:12 08:32 Sodium Potassium Chloride Carbon Dioxide Anion Gap BUN Creatinine Estim Creat Clear Calc Estimated GFR POC Glucose 143 H 176 H 151 H Random Glucose Calcium Imaging Radiology Impressions: ITS Impressions Chest X-Ray 01/16/24 07:49 IMPRESSION: Hypoinflation. Limited assessment of the left lower chest with no definite focal pneumonia or edema Medications Medications Current Medications Acetaminophen (Acetaminophen 325 Mg Tablet) 650 mg PO Q6H PRN PRN Reason: Headache/Pain Mild Scale (1-3) Last Admin: 01/20/24 20:24 Dose: 650 mg Al Hydroxide/Mg Hydroxide (Magnesium Hydrox/Alum Hydrox 30 Ml Oral.Susp) 30 ml PO Q6H PRN PRN Reason: Heartburn/Nausea Last Admin: 01/20/24 17:53 Dose: 30 ml Atorvastatin Calcium (Atorvastatin Calcium 40 Mg Tablet) 40 mg PO DAILY [facility] Last Admin: 01/21/24 09:11 Dose: 40 mg Carvedilol (Carvedilol 25 Mg Tablet) 25 mg PO BID [facility]; Protocol Last Admin: 01/21/24 09:11 Dose: 25 mg Folic Acid (Folic Acid 1 Mg Tablet) 1 mg PO DAILY [facility] Last Admin: 01/21/24 09:11 Dose: 1 mg Furosemide (Furosemide 40 Mg Tablet) 40 mg PO DAILY [facility]; Protocol Last Admin: 01/21/24 09:11 Dose: 40 mg Insulin Human Lispro (Insulin Lispro 100 Unit/Ml 3 Ml Vial) 0 unit SUBCUT QIDACHS [facility]; Protocol Last Admin: 01/21/24 09:09 Dose: 2 unit Lidocaine (Lidocaine 5 % Ointment 35 Gm) 1 appl TOPICAL Q6H PRN; Protocol PRN Reason: Pain, Moderate(Pain Scale 4-6) Last Admin: 01/21/24 09:18 Dose: 1 appl Loperamide HCl (Loperamide Hcl 2 Mg Capsule) 2 mg PO Q4H PRN PRN Reason: Loose Stool Last Admin: 01/21/24 09:18 Dose: 2 mg Losartan Potassium (Losartan Potassium 25 Mg Tablet) 25 mg PO DAILY [facility]; Protocol Last Admin: 01/21/24 09:11 Dose: 25 mg Magnesium Hydroxide (Milk Of Magnesia 30 Ml Oral.Susp) 30 ml PO DAILY PRN PRN Reason: Constipation Metformin HCl (Metformin Hcl 500 Mg Tablet) 500 mg PO BIDWM [facility] Last Admin: 01/21/24 09:11 Dose: 500 mg Naltrexone HCl (Naltrexone Hcl 50 Mg Tablet) 25 mg PO DAILY [facility] Last Admin: 01/21/24 09:11 Dose: 25 mg Nicotine (Nicotine 21 Mg Patch.Td24) 21 mg TRANSDERMA DAILY PRN PRN Reason: smoking cessation Nicotine Polacrilex (Nicotine Polacrilex 2 Mg Gum) 4 mg BUCCAL Q2H PRN PRN Reason: Nicotine Cravings Olanzapine (Olanzapine 5 Mg Tablet) 5 mg PO TID PRN PRN Reason: agitation Last Admin: 01/16/24 21:39 Dose: 5 mg Omeprazole (Omeprazole 40 Mg Capsule.Dr) 40 mg PO DAILY@0630 [facility] Last Admin: 01/21/24 06:11 Dose: 40 mg Potassium Chloride (Potassium Chloride Er 20 Meq Tab.Er.Prt) 20 meq PO DAILY [facility] Last Admin: 01/21/24 09:11 Dose: 20 meq Sertraline HCl (Sertraline Hcl 50 Mg Tablet) 50 mg PO DAILY [facility] Last Admin: 01/21/24 09:11 Dose: 50 mg Thiamine HCl (Thiamine Hcl 100 Mg Tablet) 100 mg PO DAILY [facility] Last Admin: 01/21/24 09:12 Dose: 100 mg Trazodone HCl (Trazodone Hcl 50 Mg Tablet) 50 mg PO BEDTIME MRX1 PRN PRN Reason: Insomnia Allergies Allergies Allergy/AdvReac Type Severity Reaction Status Date / Time No Known Allergies Allergy Verified 01/16/24 05:32 Assessment & Plan Assessment & Plan (1) MDD (major depressive disorder), recurrent episode, moderate: Status: Acute Code(s): F33.1 - Major depressive disorder, recurrent, moderate (2) TERRIE on CPAP: Status: Acute Code(s): G47.33 - Obstructive sleep apnea (adult) (pediatric); Z99.89 - Dependence on other enabling machines and devices (3) Morbid obesity: Status: Acute Code(s): E66.01 - Morbid (severe) obesity due to excess calories (4) Alcohol use disorder, severe, dependence: Status: Acute Code(s): F10.20 - Alcohol dependence, uncomplicated Plan Patient admitted depression thoughts of suicide which he is currently denying in the context of chronic intermittent significant alcohol use chronic medical difficulties and recent GI symptoms and abdominal pain. Restart medication for hypertension diabetes reported history congestive heart failure Lexapro recheck EKG and QTC particularly on Lexapro would benefit from more structured ongoing treatment evaluate safety patient was asking for help in the emergency room he did put in a 3 day notice Patient was admitted on conditional voluntary currently no active psychiatric services reportedly no therapy services has not been able to meet he states with his PCP on any regular basis labs CBC unremarkable 01/18/24 Patient with increased QTC 590 spoke with hospitalist service. Hydroxyzine will stop Lexapro for now recheck EKG labs either continue Lexapro at lower dose or stop EKG qtc has run in the low 500s in the past 01/19/2024 Stop Lexapro start sertraline referral to IOP 3 day notice withdrawn monitor labs and EKG over the next few days 01/20/2024 Patient reports mood is improved; tolerating sertraline. on 01/18 EKG QTc Int : 490 ms Discontinue CIWA; patient longer scoring 3/10 pt reports mood remains better; no problems with Zoloft. Back still bothering him from being on small exam table and asks for Dicofenac which he says he takes at home. Saying he's ready to go home tomorrow. Asks for ibuprofen + Tylenol for ride home.. Patient educated on: diagnosis, medication risk/benefits and medical condition Informed Consent: understands Reason for continued inpatient stay Substantial Risk for: stable for discharge Time Spent With Patient Time: Total time managing care of this patient today ____ minutes.
[2024-01-21 12:47] LABS: Glucose, Whole Blood 201 mg/dL (60-115)
[2024-01-21] MEDS: Diclofenac Sodium Delayed Rel 50 MG TABLET.DR PO (16:50)
[2024-01-21 17:26] VITALS: BP 104/58; PULSE 87; RESP 16; TEMP 36.1; O2SAT 94
[2024-01-21 17:30] LABS: Glucose, Whole Blood 195 mg/dL (60-115)
[2024-01-21 20:12] LABS: Glucose, Whole Blood 132 mg/dL (60-115)
[2024-01-22] MEDS: Omeprazole 40 MG CAPSULE.DR PO (05:07)
[2024-01-22 07:56] LABS: Glucose, Whole Blood 168 mg/dL (60-115)
[2024-01-22 08:18] VITALS: BP 130/67; PULSE 70; RESP 16; TEMP 36.3; O2SAT 92
[2024-01-22] MEDS: Milk of Magnesia 30 ML ORAL.SUSP PO (08:43)
[2024-01-22] MEDS: Loperamide HCl 2 MG CAPSULE PO (08:43)
[2024-01-22] MEDS: Losartan Potassium 25 MG TABLET PO (08:45)
[2024-01-22] MEDS: Thiamine HCL 100 MG TABLET PO (08:45)
[2024-01-22] MEDS: Potassium Chloride ER 20 MEQ TAB.ER.PRT PO (08:45)
[2024-01-22] MEDS: carvediloL 25 MG TABLET PO (08:45)
[2024-01-22] MEDS: Naltrexone HCl 50 MG TABLET 25 MG PO (08:45)
[2024-01-22] MEDS: Folic Acid 1 MG TABLET PO (08:46)
[2024-01-22] MEDS: Furosemide 40 MG TABLET PO (08:46)
[2024-01-22] MEDS: Sertraline HCL 50 MG TABLET PO (08:46)
[2024-01-22] MEDS: metFORMIN HCl 500 MG TABLET PO (08:46)
[2024-01-22] MEDS: Atorvastatin Calcium 40 MG TABLET PO (08:46)
[2024-01-22 11:24] LABS: Alanine Aminotransferase 44 U/L (0-40); Albumin Level 3.9 g/dL (3.5-5.0); Alkaline Phosphatase 69 U/L (39-117); Anion Gap 12 (12-20); Aspartate Amino Transferase 42 U/L (5-37); Bilirubin Total 0.7 mg/dL (0.0-1.0); Blood Urea Nitrogen 9 mg/dL (9-16); Calcium 8.7 mg/dL (8.4-10.2); Carbon Dioxide 26 mmol/L (22-29); Chloride 104 mmol/L (96-108); Creatinine Clr Calc Pharmacy 194.4; Estimated Glomerular Filt Rate > 60; Glucose Random 234 mg/dL (60-115); Potassium 4.3 mmol/L (3.3-5.1); Sodium 138 mmol/L (135-145); Total Protein 7.7 g/dL (6.5-8.0)
--- NOTE | 2024-01-22 17:31 | P.DS_ITS ---
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 Neut % (Auto) Lymph % (Auto) [place] % (Auto) Eos % (Auto) Baso % (Auto) Lymph # (Auto) [place] # (Auto) Eos # (Auto) Baso # (Auto) Abs Immat Gran (auto) Absolute Neuts (auto) Absolute Nucleated RBC Nucleated RBC % (auto) Sodium Potassium Chloride Carbon Dioxide Anion Gap BUN Creatinine Estim Creat Clear Calc Estimated GFR POC Glucose 222 H Random Glucose Estimat Average Glucose Cancelled Hgb A1c Fingerstick Hemoglobin A1c % Cancelled Calcium Total Bilirubin AST ALT Alkaline Phosphatase Troponin I High Sens B-Natriuretic Peptide Total Protein Albumin Lipase Urine Color Urine Appearance Urine pH Ur Specific [place] Urine Protein Urine Glucose (UA) Urine Ketones Urine Blood Urine Nitrite Ur Leukocyte Esterase Urine RBC Urine WBC Ur Squamous Epith Cells Urine Bacteria Hyaline Casts Urine Opiates Screen Urine Fentanyl Screen Ur Barbiturates Screen Ur Phencyclidine Scrn Ur Amphetamines Screen U Benzodiazepines Scrn Urine Cocaine Screen U Marijuana (THC) Screen Ethyl Alcohol Influenza Type A (PCR) Influenza Type B (PCR) RSV RNA Qual (PCR) SARS-CoV-2 RNA (RT-PCR) EKG EKG: reviewed EKG Comment: inc qtc Imaging Radiology Impressions: ITS Impressions Chest X-Ray 01/16/24 07:49 IMPRESSION: Hypoinflation. Limited assessment of the left lower chest with no definite focal pneumonia or edema Meds/Allergies Meds Home Medications Medication Instructions Recorded Confirmed Type atorvastatin 40 mg tablet 40 mg PO DAILY 07/24/23 01/17/24 History carvedilol 12.5 mg tablet 25 mg PO BID 07/24/23 01/17/24 History dapagliflozin propanediol 10 mg 10 mg PO DAILY 07/24/23 01/17/24 History tablet (Farxiga) escitalopram oxalate 20 mg tablet 20 mg PO DAILY 07/24/23 01/17/24 History furosemide 40 mg tablet 40 mg PO DAILY PRN Edema 07/24/23 01/17/24 History ibuprofen 600 mg tablet 400 mg PO Q6H PRN Pain 07/24/23 01/17/24 History losartan 25 mg tablet 25 mg PO DAILY 07/24/23 01/17/24 History metformin 500 mg tablet 500 mg PO BID 07/24/23 07/24/23 History omeprazole 20 mg capsule,delayed 40 mg PO DAILY 07/24/23 01/17/24 History release potassium chloride 10 mEq 10 meq PO DAILY 07/24/23 01/17/24 History capsule,extended release hydroxyzine HCl 50 mg tablet 50 mg PO BID PRN Anxiety 01/17/24 01/17/24 History Allergies Allergies Allergy/AdvReac Type Severity Reaction Status Date / Time No Known Allergies Allergy Verified 01/16/24 05:32 Mental Status Exam Mental Status Exam Patient Appearance: Appropriate Patient Orientation: Person, Place, Time and Situation Level of Consciousness: Alert Patient Behavior: Appropriate, Talkative, Cooperative and Good Eye Contact Mood Description: Constricted and Depressed Affect Description: Constricted and Depressed Patient Cognition Impaired: No Ability to Follow Directions: Good Speech Pattern: Spontaneous Speech Memory Description: Intact Hallucinations: None Delusions: Not Present Thought Process: Intact and Goal Oriented Thought Content: positive for Circumstantial and positive for Goal Oriented Depressive Symptoms: Increased Irritability, Increased Fatigue, Thoughts of Deat h/Suicide (denies) and Loss of Energy Judgement: Fair Judgement and Insight: Unclear why patient has not been able to [place] access ongoing treatment Assessment & Plan Assessment & Plan (1) TERRIE on CPAP: Status: Acute Code(s): G47.33 - Obstructive sleep apnea (adult) (pediatric); Z99.89 - Dependence on other enabling machines and devices (2) Morbid obesity: Status: Acute Code(s): E66.01 - Morbid (severe) obesity due to excess calories (3) MDD (major depressive disorder), recurrent episode, moderate: Status: Acute Code(s): F33.1 - Major depressive disorder, recurrent, moderate (4) Alcohol use disorder, severe, dependence: Status: Acute Code(s): F10.20 - Alcohol dependence, uncomplicated Plan Patient admitted depression thoughts of suicide which he is currently denying in the context of chronic intermittent significant alcohol use chronic medical difficulties and recent GI symptoms and abdominal pain. Restart medication for hypertension diabetes reported history congestive heart failure Lexapro recheck EKG and QTC particularly on Lexapro would benefit from more structured ongoing treatment evaluate safety patient was asking for help in the emergency room he did put in a 3 day notice Patient was admitted on conditional voluntary currently no active psychiatric services reportedly no therapy services has not been able to meet he states with his PCP on any regular basis labs CBC unremarkable Patient educated on: diagnosis, substance abuse and medical condition Informed Consent: further education needed Reason for continued inpatient stay Substantial Risk for: harm to self and rapid decompensation Statement Statement: I have reviewed the history and physical and performed a pertinent examination on my patient. No changes have occurred unless specified. If the History and Physical was not performed prior to admission, the Hospitalist's service will be consulted for completing the admission physical. Time Spent With Patient Time: Total time managing care of this patient today _50___ minutes. HOSPITAL COURSE s a 53-year-old male with a history of recurrent depression PTSD history of intermittent alcohol abuse has multiple medical problems including diabetes hypertension question recent gastroenteritis questionable history of cardiomyopathy increase QTC. The patient was cooperative on the unit and fairly rapidly re stabilized. His QTC was significantly increased or 600 and was taken off hydroxyzine and Lexapro and started on sertraline. Was started on naltrexone for alcohol cravings and was agreeable to this. Patient's mood was stable calm future oriented at time discharge The patient was agreeable to psychiatric floor [facility] transportation arrangements were arranged by social Work through his insurance and the patient also has an appointment with [facility] consideration Vivitrol injections. Patient is a number of the crisis team he was future oriented and asking for help at time of discharge He does have medical follow-up EKG had normalized Status at Discharge Overall status at discharge: patient is progressing back to baseline Time Spent with Patient Time attestation: Total time managing care of this patient today _38___ minutes. Time spent: Greater than 30 minutes Discharge Plan Discharge Anticipated Discharge Date/Time: 01/22/24 11:00 Patient Disposition: Home, Self-Care Discharge Diagnosis: major depression recurrent ptsd alcohol dependance early remission diabetes hypertension hx of cardiomypathy obesity TERRIE Referrals: [facility] Intensive Outpatient Program (IOP) [Other] - 03/08/24 8:00 am (Referral to [facility] IOP program Patient should coordinate with soldier on program for transportation to IOP. Patient may have sooner appointment for intake should there be a cancellation. PHP will contact you by phone should earlier intake appointment be available.) [facility] [Other] - 1 Week (Referral for transformation coach services Patient should follow-up on referral after discharge to connect with transformation coach) [place] [facility]: Shakira Nichols [Other] - 01/26/24 11:00 am (Initial Diagnostic evaluation for therapy Appointment in office at [facility] in [place] You need to attend this appointment in order to receive psychiatric medication management services ) [place] [facility]: Sumaya Godoy (psychiatry) [Other] - 02/09/24 11:00 am (Initial Psychiatric Evaluation for Medication Management Services with Psychiatric provider Patient appointment is by tele-health. Please check your email for a link to the appointment. ) [facility]: Sis Fallon NP [Other] - 01/23/24 2:00 pm ([facility]ointment with [facility] for medication assisted treatmentAmee. Appointment in person at [facility] ) Physician,Qing J [Primary Care Provider] - 1 Week (pt is denying pcp and reports he will obtain one and make his own appt. ) Discharge Medications: New naltrexone 50 mg Tablet 50 mg PO DAILY 30 Days Qty: 30 0RF olanzapine 5 mg Tablet 2.5 mg PO BID PRN (Reason: agitation) Qty: 15 0RF potassium chloride 20 mEq Tablet,Er Particles/Crystals 20 meq PO DAILY 30 Days Qty: 30 0RF sertraline 50 mg Tablet 50 mg PO DAILY 30 Days Qty: 30 0RF lidocaine 5 % Ointment 1 appl topical Q6H PRN (Reason: Pain, Moderate(Pain Scale 4-6)) 30 Days Qty: 50 1RF Protocol: Apply to: Apply to: lower back folic acid 0.8 mg capsule 0.8 mg PO DAILY Qty: 30 2RF thiamine mononitrate (vit B1) 100 mg Tablet 100 mg PO DAILY Qty: 30 1RF loperamide 2 mg Capsule 2 mg PO Q4H PRN (Reason: Loose Stool) Qty: 30 0RF Continued atorvastatin 40 mg tablet 40 mg PO DAILY carvedilol 12.5 mg tablet 25 mg PO BID losartan 25 mg tablet 25 mg PO DAILY ibuprofen 600 mg tablet 400 mg PO Q6H PRN (Reason: Pain) dapagliflozin propanediol [Farxiga] 10 mg tablet 10 mg PO DAILY ondansetron HCl 4 mg tablet 4 mg PO Q8H PRN (Reason: nausea and vomiting) 3 Days Qty: 10 0RF furosemide 40 mg tablet 40 mg PO DAILY PRN (Reason: Edema) 30 Days Qty: 30 0RF metformin 500 mg tablet 500 mg PO BID 30 Days Qty: 60 0RF omeprazole 20 mg capsule,delayed release(DR/EC) 40 mg PO DAILY Qty: 30 0RF Discontinued potassium chloride 10 mEq capsule, extended release 10 meq PO DAILY escitalopram oxalate 20 mg tablet 20 mg PO DAILY hydroxyzine HCl 50 mg Tablet 50 mg PO BID PRN (Reason: Anxiety) Discharge Orders: Discharge Order (Routine); Ordered 01/22/24 Ordered By: Jori Rodriguez Diet: Diabetic diet Activity on Discharge: As tolerated Stand Alone Forms: Patient Portal Discharge page, Community Support Care Plan Goals: SOBRIETY STABLE MOOD NO SI ONGOING PSYCH CARE AND THERAPY FOLLOW UP WITH PCP Health Concerns: ABDOMINAL PAIN DISCOMFORT HX CARDIOMYOPATHY DIABETES MELLITUS HYPERTENSION Plan of Treatment: PARTIAL HOSPITAL OUTPT PSYCH CARE AND THERAPY OUTPT MED APPT OUT APPT COMP CARE CLINIC FOR VIVITROL Assessment: CALM FUTURE OREIENTED Discharge Date/Time: 01/22/24 11:46
== END 2024-01-22 11:46 | disposition home or self-care (01) | DRG 885 ==
LOC: HO.ED 11:30 → HO.PM5 17:45
PROVIDERS: Physician Assistant Medical; Admitting Provider Psychiatry & Neurology Psychiatry; Emergency Provider Student in an Organized Health Care Education/Training Program; Referring Provider Psychiatry & Neurology Psychiatry; Visit Provider Psychiatry & Neurology Psychiatry
DX: F33.1 Major depressive disorder, recurrent, moderate (principal); R45.851 Suicidal ideations; Z68.43 Body mass index [BMI] 50.0-59.9, adult; G47.33 Obstructive sleep apnea (adult) (pediatric); E11.9 Type 2 diabetes mellitus without complications; Z23 Encounter for immunization; Z20.822 Contact with and (suspected) exposure to COVID-19; Y90.1 Blood alcohol level of 20-39 mg/100 ml; F10.20 Alcohol dependence, uncomplicated; E66.01 Morbid (severe) obesity due to excess calories; F43.10 Post-traumatic stress disorder, unspecified; Z79.84 Long term (current) use of oral hypoglycemic drugs; Z79.899 Other long term (current) drug therapy
CPT/HCPCS: 0241U; 36415; 71045; 80048; 80053; 80061; 80307; 81001; 82947; 83036; 83690; 83735; 83880; 84484; 85025; 90686; 93005; 99285; C9113; J2270; J2765; S9485

== ENCOUNTER → 2024-01-16 04:51 | Outpatient (BNV) | payer MEDICARE, MEDICAID, SELFPAY | PROVIDERS: Admitting Provider Psychiatry & Neurology Psychiatry; Emergency Provider Student in an Organized Health Care Education/Training Program; Visit Provider Internal Medicine Cardiovascular Disease | DX: R07.9 Chest pain, unspecified (principal); I44.0 Atrioventricular block, first degree; I45.19 Other right bundle-branch block | CPT/HCPCS: 93010 ==

== ENCOUNTER 2024-01-16 17:06 | Outpatient (BNV) | payer MEDICARE, MEDICAID, SELFPAY | END 2024-01-18 08:00 | PROVIDERS: Admitting Provider Psychiatry & Neurology Psychiatry; Emergency Provider Student in an Organized Health Care Education/Training Program; Visit Provider Internal Medicine Cardiovascular Disease | DX: R00.0 Tachycardia, unspecified (principal); I45.81 Long QT syndrome | CPT/HCPCS: 93010 ==

== ENCOUNTER 2024-01-16 17:06 | Outpatient (BNV) | payer OTHER, MEDICAID, SELFPAY | END 2024-01-19 08:00 | PROVIDERS: Admitting Provider Psychiatry & Neurology Psychiatry; Emergency Provider Student in an Organized Health Care Education/Training Program; Visit Provider Internal Medicine Cardiovascular Disease | DX: I11.0 Hypertensive heart disease with heart failure (principal); I50.9 Heart failure, unspecified; R94.31 Abnormal electrocardiogram [ECG] [EKG] | CPT/HCPCS: 93010 ==

== ENCOUNTER → 2024-01-16 17:06 | Outpatient (BNV) | payer MEDICARE, MEDICAID, SELFPAY | PROVIDERS: Admitting Provider Psychiatry & Neurology Psychiatry; Emergency Provider Student in an Organized Health Care Education/Training Program; Visit Provider Psychiatry & Neurology Psychiatry | DX: F33.1 Major depressive disorder, recurrent, moderate (principal); G47.33 Obstructive sleep apnea (adult) (pediatric); Z99.89 Dependence on other enabling machines and devices; E66.01 Morbid (severe) obesity due to excess calories; F10.20 Alcohol dependence, uncomplicated | CPT/HCPCS: 90792; 99232; 99239 ==

== ENCOUNTER → 2024-01-16 17:06 | Outpatient (BNV) | payer OTHER, MEDICARE, MEDICAID, SELFPAY | PROVIDERS: Admitting Provider Psychiatry & Neurology Psychiatry; Emergency Provider Student in an Organized Health Care Education/Training Program; Visit Provider Psychiatry & Neurology Psychiatry | DX: F33.1 Major depressive disorder, recurrent, moderate (principal); G47.33 Obstructive sleep apnea (adult) (pediatric); Z99.89 Dependence on other enabling machines and devices; E66.01 Morbid (severe) obesity due to excess calories; F10.20 Alcohol dependence, uncomplicated | CPT/HCPCS: 99231; 99232 ==

== ENCOUNTER 2024-03-05 23:18 | Inpatient (IN) | payer MEDICARE, MEDICAID, SELFPAY ==
[2024-03-05 23:35] VITALS: BP 137/87; PULSE 118; RESP 16; TEMP 36.4; O2SAT 98
[2024-03-06 00:57] VITALS: BMI 26.1
--- NOTE | 2024-03-06 01:26 | PC.ADMIT ---
Miguel Ángel Calderon is a 53yo male, single admitted on CV to M3 unit from [facility] ED for treatment of SI, PTSD and Etoh use disorder. He called 911 on himself for ongoing SI with a plan to end his own life by means of drinking liquor and taking all of his prescribed meds at once. He reports having diagnosed of Depression, PTSD and has felt suicide for some time. His former suicide attempt in 2019 was exactly the same plan. He has complex medical issues including DM 2, sleep Apnea, CHF, constipation issues, etc. On unit admission assessment, he was easily irritable and agitating for d/c, mood is flat and affect is anxious. He states that I just want to go home now or wait till tomorrow morning . He immediately signed a 3 day notice form. He denies SI/HI/AV/AH. Skin check done, and v/s stable. He refuses to sign/fill any release of information forms, my contacts form, and menus. Treatment plan and safety tools initiated but yet to be sign. He was placed on 5 minutes safety checks/ observation by on-call provider.
[2024-03-06 07:51] VITALS: BP 130/71; PULSE 102; RESP 14; TEMP 36.2; O2SAT 94
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
[2024-03-06 09:22] VITALS: BP 130/71
[2024-03-06 09:24] VITALS: BP 130/71
--- NOTE | 2024-03-06 11:54 | P.CONHOSP_ITS ---
History of Present Illness Data of Consult Service Date: 03/06/24 Requesting physician: Jm Rutherford Primary Care Provider: Unknown Physician HPI Reason for consult: medical H&P 52-year-old male with history of hypertension, heart failure with reduced ejection fraction, TERRIE on CPAP, [id number] type 2 diabetes, severe alcohol use disorder, depression, anxiety, PTSD admitted to psychiatry from [facility] ED with consult placed to hospitalist service for medical H&P. Patient does not wish to meet with his provider at this time. However, he does deny any acute concerns at this time. While in the ED, he had presented with palpitations, lightheadedness, chest pain. Troponin was measured at 12 and EKG showed sinus tachycardia, rate 109 without any acute ischemic changes. He was negative for COVID-19, flu, RSV. Hematology studies unremarkable. Renal function baseline, electrolyte levels normal but was hyperglycemic at 03:49. D-dimer was 0.21. Mildly tachcardic on the unit with HR 102 this am, otherwise wnl. Review of Systems Review of Systems: Yes Other (pt not agreeable to questioning or exam) [facility] Medical History (Updated 03/06/24 @ 15:14 by Teagan Livingston NP) TERRIE on CPAP Morbid obesity Acute gastritis with bleeding Systolic heart failure Alcohol use disorder, severe, dependence Herniated disc Arthritis PTSD (post-traumatic stress disorder) Depression Anxiety Obesity Sleep apnea Hypertension Diabetes mellitus, type 2 Family History Mother Diabetes Social History Household Members: None Housing: Apartment Do you presently have visiting nurse or other home services: No Alcohol intake: current Alcohol intake frequency: holidays/special occasions on ly Alcohol type: beer Patient Tobacco Use Status: Never used Tobacco Smoked in Last 30 Days: No e-Cigarette/Vaping Use: Never Used Patient Interested in Nicotine Replacement: No Patient Given Instructions on How to Stop Smoking: No Second Hand Smoke Exposure: No Use of substances other than those prescribed or required for medical reasons: No Substance Use Type: Marijuana and Prescription Drugs Currently Displaying Signs/Symptoms of Drug Intoxication Withdrawal: No Have you been hit, kicked, punched, or otherwise hurt by someone within the past year? If so, by whom?: No Do you feel safe in your current relationship?: No Current Relationship Is there a partner from a previous relationship who is making you feel unsafe now?: No Are you made to feel afraid or neglected: No Advance Directives: No Advance Directives Information Provided: Yes Do you have thoughts of harming others: None Do you have a plan to hurt others: No Plan Recently lost weight without trying: No Eating poorly because of decreased appetite: No Nutrition Risks: No Nutritional Risk Poor oral hygiene: No service: Yes ([employer] [id number] honorable discharge) Current occupational status: employed Sexual orientation: Don't Know Meds Allergies Allergy/AdvReac Type Severity Reaction Status Date / Time No Known Allergies Allergy Verified 01/16/24 05:32 Active Medications: Current Medications Acetaminophen (Acetaminophen 325 Mg Tablet) 650 mg PO Q6H PRN PRN Reason: Headache/Pain Mild Scale (1-3) Al Hydroxide/Mg Hydroxide (Magnesium Hydrox/Alum Hydrox 30 Ml Oral.Susp) 30 ml PO Q6H PRN PRN Reason: Heartburn/Nausea Albuterol Sulfate (Albuterol Sulfate 90 Mcg 8 Gm Inhaler) 1 puff INHALE Q4H PRN PRN Reason: Shortness of Breath Aspirin (Aspirin 81 Mg Tab.Chew) 81 mg PO DAILY [facility] Last Admin: 03/06/24 09:23 Dose: Not Given Atorvastatin Calcium (Atorvastatin Calcium 40 Mg Tablet) 40 mg PO DAILY [facility] Last Admin: 03/06/24 09:22 Dose: Not Given Carvedilol (Carvedilol 25 Mg Tablet) 25 mg PO BID [facility]; Protocol Last Admin: 03/06/24 09:21 Dose: Not Given Empagliflozin (Empagliflozin 10 Mg Tablet) 10 mg PO DAILY [facility] Last Admin: 03/06/24 09:43 Dose: Not Given Folic Acid (Folic Acid 1 Mg Tablet) 1 mg PO DAILY [facility] Last Admin: 03/06/24 09:07 Dose: Not Given Furosemide (Furosemide 40 Mg Tablet) 40 mg PO DAILY [facility]; Protocol Last Admin: 03/06/24 09:22 Dose: Not Given Hydroxyzine HCl (Hydroxyzine Hcl 25 Mg Tablet) 25 mg PO Q6H PRN PRN Reason: Anxiety Ibuprofen (Ibuprofen 400 Mg Tablet) 400 mg PO Q6H PRN PRN Reason: Pain, Moderate(Pain Scale 4-6) Lidocaine (Lidocaine 5 % Ointment 35 Gm) 1 appl TOPICAL Q6H PRN; Protocol PRN Reason: Pain, Moderate(Pain Scale 4-6) Lorazepam (Lorazepam 1 Mg Tablet) 1 mg PO Q4H PRN PRN Reason: ciwa 6-12 Lorazepam (Lorazepam 1 Mg Tablet) 2 mg PO Q4H PRN PRN Reason: CIWA 13 and above Losartan Potassium (Losartan Potassium 25 Mg Tablet) 25 mg PO DAILY [facility]; Protocol Last Admin: 03/06/24 09:24 Dose: Not Given Magnesium Hydroxide (Milk Of Magnesia 30 Ml Oral.Susp) 30 ml PO DAILY PRN PRN Reason: Constipation Metformin HCl (Metformin Hcl 500 Mg Tablet) 500 mg PO BID [facility] Last Admin: 03/06/24 09:22 Dose: Not Given Multivitamins/Vitamin C (Multivitamin Tablet) 1 tab PO DAILY [facility] Last Admin: 03/06/24 09:08 Dose: Not Given Naltrexone HCl (Naltrexone Hcl 50 Mg Tablet) 50 mg PO DAILY [facility] Last Admin: 03/06/24 09:24 Dose: Not Given Nicotine (Nicotine 21 Mg Patch.Td24) 21 mg TRANSDERMA DAILY [facility] Last Admin: 03/06/24 09:08 Dose: Not Given Nicotine Polacrilex (Nicotine Polacrilex 2 Mg Gum) 4 mg BUCCAL Q2H PRN PRN Reason: Nicotine Cravings Olanzapine (Olanzapine 2.5 Mg Tablet) 2.5 mg PO BID PRN PRN Reason: agitation Omeprazole (Omeprazole 40 Mg Capsule.Dr) 40 mg PO DAILY [facility] Last Admin: 03/06/24 09:44 Dose: Not Given Thiamine HCl (Thiamine Hcl 100 Mg Tablet) 100 mg PO DAILY [facility] Last Admin: 03/06/24 09:08 Dose: Not Given Trazodone HCl (Trazodone Hcl 50 Mg Tablet) 50 mg PO BEDTIME MRX1 PRN PRN Reason: Insomnia Home Medications ?Medication ?Instructions ?Recorded ?Confirmed ?Last Taken ?Type atorvastatin 40 mg tablet 40 mg PO DAILY 07/24/23 03/06/24 Unknown History carvedilol 12.5 mg tablet 25 mg PO BID 07/24/23 03/06/24 Unknown History dapagliflozin propanediol 10 mg 10 mg PO DAILY 07/24/23 03/06/24 Unknown History tablet (Farxiga) ibuprofen 600 mg tablet 400 mg PO Q6H PRN Pain 07/24/23 03/06/24 Unknown History losartan 25 mg tablet 25 mg PO DAILY 07/24/23 03/06/24 Unknown History Physical Exam Vital Signs and Narrative: Vital Signs: Last Vital Signs Temp 97.2 F 03/06/24 07:51 Pulse 102 H 03/06/24 07:51 Resp 14 03/06/24 07:51 BP 130/71 03/06/24 09:24 Pulse Ox 94 03/06/24 07:51 O2 Del Method Room Air 03/06/24 07:51 BMI result Body Mass Index 26.1 Constitutional - Awake and Alert, No apparent distress Lungs- respirations even and unlabored. No respiratory distress pt not agreeable to questioning or further exam Assessment and Plan (1) Routine medical exam: Status: Acute Plan 52-year-old male with history of hypertension, heart failure with reduced ejection fraction, TERRIE on CPAP, [id number] type 2 diabetes, severe alcohol use disorder, depression, anxiety, PTSD admitted to psychiatry [place] [facility] with consult placed to hospitalist service for medical H&P. #Mood disorder -plan per psychiatry #Hypertension -BP reasonably controlled -continue losartan, furosemide, carvedilol # heart failure preserved ejection fraction -clinically appears euvolemic -continue Lasix, carvedilol, losartan # [id number] type 2 diabetes -POC glucose controlled since arrival, last a1c 10.2% 01/16/24 -POC glucose, recommend compliance with diabetic diet if patient agreeable -continue metformin, Farxiga # TERRIE -recommend CPAP if allowed on unit #morbid obesity with BMI >59 -encourage weight loss efforts Thank you for allowing me to participate in this consult. Signing off at this time. Please do not hesitate to call for further questions or for any acute medical concerns
[2024-03-06 15:55] VITALS: BMI 57.2
--- NOTE | 2024-03-07 10:38 | P.PNPSI_ITS ---
Subjective Subjective Reason For Visit: Major Depressive Disorder Diagnostics Vital Signs (24Hr): BMI result Body Mass Index 57.2 Medications Medications Current Medications Acetaminophen (Acetaminophen 325 Mg Tablet) 650 mg PO Q6H PRN PRN Reason: Headache/Pain Mild Scale (1-3) Al Hydroxide/Mg Hydroxide (Magnesium Hydrox/Alum Hydrox 30 Ml Oral.Susp) 30 ml PO Q6H PRN PRN Reason: Heartburn/Nausea Albuterol Sulfate (Albuterol Sulfate 90 Mcg 8 Gm Inhaler) 1 puff INHALE Q4H PRN PRN Reason: Shortness of Breath Aspirin (Aspirin 81 Mg Tab.Chew) 81 mg PO DAILY [facility] Last Admin: 03/07/24 08:43 Dose: Not Given Atorvastatin Calcium (Atorvastatin Calcium 40 Mg Tablet) 40 mg PO DAILY [facility] Last Admin: 03/07/24 08:43 Dose: Not Given Carvedilol (Carvedilol 25 Mg Tablet) 25 mg PO BID [facility]; Protocol Last Admin: 03/07/24 08:43 Dose: Not Given Empagliflozin (Empagliflozin 10 Mg Tablet) 10 mg PO DAILY [facility] Last Admin: 03/07/24 08:44 Dose: Not Given Escitalopram Oxalate (Escitalopram Oxalate 10 Mg Tablet) 10 mg PO DAILY [facility] Last Admin: 03/07/24 08:44 Dose: Not Given Folic Acid (Folic Acid 1 Mg Tablet) 1 mg PO DAILY [facility] Last Admin: 03/07/24 08:44 Dose: Not Given Furosemide (Furosemide 40 Mg Tablet) 40 mg PO DAILY [facility]; Protocol Last Admin: 03/07/24 08:44 Dose: Not Given Hydroxyzine HCl (Hydroxyzine Hcl 25 Mg Tablet) 25 mg PO Q6H PRN PRN Reason: Anxiety Ibuprofen (Ibuprofen 400 Mg Tablet) 400 mg PO Q6H PRN PRN Reason: Pain, Moderate(Pain Scale 4-6) Lidocaine (Lidocaine 5 % Ointment 35 Gm) 1 appl TOPICAL Q6H PRN; Protocol PRN Reason: Pain, Moderate(Pain Scale 4-6) Lorazepam (Lorazepam 1 Mg Tablet) 1 mg PO Q4H PRN PRN Reason: ciwa 6-12 Lorazepam (Lorazepam 1 Mg Tablet) 2 mg PO Q4H PRN PRN Reason: CIWA 13 and above Losartan Potassium (Losartan Potassium 25 Mg Tablet) 25 mg PO DAILY [facility]; Protocol Last Admin: 03/07/24 08:44 Dose: Not Given Magnesium Hydroxide (Milk Of Magnesia 30 Ml Oral.Susp) 30 ml PO DAILY PRN PRN Reason: Constipation Metformin HCl (Metformin Hcl 500 Mg Tablet) 500 mg PO BID [facility] Last Admin: 03/07/24 08:44 Dose: Not Given Multivitamins/Vitamin C (Multivitamin Tablet) 1 tab PO DAILY [facility] Last Admin: 03/07/24 08:45 Dose: Not Given Naltrexone HCl (Naltrexone Hcl 50 Mg Tablet) 50 mg PO DAILY [facility] Last Admin: 03/07/24 08:45 Dose: Not Given Nicotine (Nicotine 21 Mg Patch.Td24) 21 mg TRANSDERMA DAILY [facility] Last Admin: 03/07/24 08:45 Dose: Not Given Nicotine Polacrilex (Nicotine Polacrilex 2 Mg Gum) 4 mg BUCCAL Q2H PRN PRN Reason: Nicotine Cravings Olanzapine (Olanzapine 2.5 Mg Tablet) 2.5 mg PO BID PRN PRN Reason: agitation Omeprazole (Omeprazole 40 Mg Capsule.Dr) 40 mg PO DAILY [facility] Last Admin: 03/07/24 08:45 Dose: Not Given Thiamine HCl (Thiamine Hcl 100 Mg Tablet) 100 mg PO DAILY [facility] Last Admin: 03/07/24 08:45 Dose: Not Given Trazodone HCl (Trazodone Hcl 50 Mg Tablet) 50 mg PO BEDTIME MRX1 PRN PRN Reason: Insomnia Allergies Allergies Allergy/AdvReac Type Severity Reaction Status Date / Time No Known Allergies Allergy Verified 01/16/24 05:32 Assessment & Plan Assessment & Plan (1) Routine medical exam: Status: Acute Code(s): Z00.00 - Encounter for general adult medical examination without abnormal findings Plan 52-year-old male with history of hypertension, heart failure with reduced ejection fraction, TERRIE on CPAP, [id number] type 2 diabetes, severe alcohol use disorder, depression, anxiety, PTSD admitted to psychiatry from [facility] with consult placed to hospitalist service for medical H&P. #Mood disorder -plan per psychiatry #Hypertension -BP reasonably controlled -continue losartan, furosemide, carvedilol # heart failure preserved ejection fraction -clinically appears euvolemic -continue Lasix, carvedilol, losartan # [id number] type 2 diabetes -POC glucose controlled since arrival, last a1c 10.2% 01/16/24 -POC glucose, recommend compliance with diabetic diet if patient agreeable -continue metformin, Farxiga # TERRIE -recommend CPAP if allowed on unit #morbid obesity with BMI >59 -encourage weight loss efforts Thank you for allowing me to participate in this consult. Signing off at this time. Please do not hesitate to call for further questions or for any acute medical concerns Time Spent With Patient Time: Total time managing care of this patient today ____ minutes.
--- NOTE | 2024-03-07 22:29 | HO.PSYCHPN ---
Subjective Subjective Date of Service: 03/07/24 Reason For Visit: Major Depressive Disorder Subjective Notes: Conditional Voluntary and 3 Day Interim History: pt is refusing medication has 3 day notice patient is on medication for hypertension diabetes depression which she is refusing. Stating almost impossible to get his medication as outpatient and wants the point. pt states he cannot count on support becomes hopeless depressed Medication Compliance: No Mental Status Exam Mental Status Exam Narrative: Pt is alert and oriented; behavior is calm, guarded, logical; dressed in hospital attire; eye contact appropriate; Speech is normal rate, volume and prosody and not pressured; thought process is organized; Thought content is on he needs to stop medication because he cannot get it as an outpt he feels to stressed to deal with the pressure denies current active suicidality limited judgement Diagnostics Vital Signs (24Hr): BMI result Body Mass Index 57.2 Medications Medications Current Medications Acetaminophen (Acetaminophen 325 Mg Tablet) 650 mg PO Q6H PRN PRN Reason: Headache/Pain Mild Scale (1-3) Al Hydroxide/Mg Hydroxide (Magnesium Hydrox/Alum Hydrox 30 Ml Oral.Susp) 30 ml PO Q6H PRN PRN Reason: Heartburn/Nausea Albuterol Sulfate (Albuterol Sulfate 90 Mcg 8 Gm Inhaler) 1 puff INHALE Q4H PRN PRN Reason: Shortness of Breath Aspirin (Aspirin 81 Mg Tab.Chew) 81 mg PO DAILY [facility] Last Admin: 03/07/24 08:43 Dose: Not Given Atorvastatin Calcium (Atorvastatin Calcium 40 Mg Tablet) 40 mg PO DAILY [facility] Last Admin: 03/07/24 08:43 Dose: Not Given Carvedilol (Carvedilol 25 Mg Tablet) 25 mg PO BID [facility]; Protocol Last Admin: 03/07/24 21:02 Dose: Not Given Empagliflozin (Empagliflozin 10 Mg Tablet) 10 mg PO DAILY [facility] Last Admin: 03/07/24 08:44 Dose: Not Given Escitalopram Oxalate (Escitalopram Oxalate 10 Mg Tablet) 10 mg PO DAILY [facility] Last Admin: 03/07/24 08:44 Dose: Not Given Folic Acid (Folic Acid 1 Mg Tablet) 1 mg PO DAILY [facility] Last Admin: 03/07/24 08:44 Dose: Not Given Furosemide (Furosemide 40 Mg Tablet) 40 mg PO DAILY [facility]; Protocol Last Admin: 03/07/24 08:44 Dose: Not Given Hydroxyzine HCl (Hydroxyzine Hcl 25 Mg Tablet) 25 mg PO Q6H PRN PRN Reason: Anxiety Ibuprofen (Ibuprofen 400 Mg Tablet) 400 mg PO Q6H PRN PRN Reason: Pain, Moderate(Pain Scale 4-6) Lidocaine (Lidocaine 5 % Ointment 35 Gm) 1 appl TOPICAL Q6H PRN; Protocol PRN Reason: Pain, Moderate(Pain Scale 4-6) Lorazepam (Lorazepam 1 Mg Tablet) 1 mg PO Q4H PRN PRN Reason: ciwa 6-12 Lorazepam (Lorazepam 1 Mg Tablet) 2 mg PO Q4H PRN PRN Reason: CIWA 13 and above Losartan Potassium (Losartan Potassium 25 Mg Tablet) 25 mg PO DAILY [facility]; Protocol Last Admin: 03/07/24 08:44 Dose: Not Given Magnesium Hydroxide (Milk Of Magnesia 30 Ml Oral.Susp) 30 ml PO DAILY PRN PRN Reason: Constipation Metformin HCl (Metformin Hcl 500 Mg Tablet) 500 mg PO BID [facility] Last Admin: 03/07/24 21:02 Dose: Not Given Multivitamins/Vitamin C (Multivitamin Tablet) 1 tab PO DAILY [facility] Last Admin: 03/07/24 08:45 Dose: Not Given Naltrexone HCl (Naltrexone Hcl 50 Mg Tablet) 50 mg PO DAILY [facility] Last Admin: 03/07/24 08:45 Dose: Not Given Nicotine (Nicotine 21 Mg Patch.Td24) 21 mg TRANSDERMA DAILY [facility] Last Admin: 03/07/24 08:45 Dose: Not Given Nicotine Polacrilex (Nicotine Polacrilex 2 Mg Gum) 4 mg BUCCAL Q2H PRN PRN Reason: Nicotine Cravings Olanzapine (Olanzapine 2.5 Mg Tablet) 2.5 mg PO BID PRN PRN Reason: agitation Omeprazole (Omeprazole 40 Mg Capsule.Dr) 40 mg PO DAILY [facility] Last Admin: 03/07/24 08:45 Dose: Not Given Thiamine HCl (Thiamine Hcl 100 Mg Tablet) 100 mg PO DAILY [facility] Last Admin: 03/07/24 08:45 Dose: Not Given Trazodone HCl (Trazodone Hcl 50 Mg Tablet) 50 mg PO BEDTIME MRX1 PRN PRN Reason: Insomnia Allergies Allergies Allergy/AdvReac Type Severity Reaction Status Date / Time No Known Allergies Allergy Verified 01/16/24 05:32 Assessment & Plan Assessment & Plan (1) MDD (major depressive disorder), recurrent episode, moderate: Status: Acute Code(s): F33.1 - Major depressive disorder, recurrent, moderate (2) PTSD (post-traumatic stress disorder): Status: Acute Code(s): F43.10 - Post-traumatic stress disorder, unspecified (3) Alcohol use disorder, severe, dependence: Status: Acute Code(s): F10.20 - Alcohol dependence, uncomplicated Plan Patient is a 53 year old male with hx of MDD, PTSD and alcohol use d/o who came to ER d/t suicidal ideation with plan to over dose on prescribed medications and drink alcohol secondary to increased depressive symptoms. Plan: day notice 15 minute safety checks continue home medications CIWA encourage groups encourage outpatient treatment 03/08/24 get addirtional data on veracity of pts claims that he gets no supports cannot make appts ? cca Reason for continued inpatient stay Substantial Risk for: harm to self and rapid decompensation Time Spent With Patient Time: Total time managing care of this patient today ____ minutes.
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
== END 2024-03-08 13:10 | disposition home or self-care (01) | DRG 885 ==
PROVIDERS: Admitting Provider Psychiatry & Neurology Psychiatry; Responsible Provider Registered Nurse; Visit Provider Psychiatry & Neurology Psychiatry
DX: F33.1 Major depressive disorder, recurrent, moderate (principal); R45.851 Suicidal ideations; I50.22 Chronic systolic (congestive) heart failure; Z68.43 Body mass index [BMI] 50.0-59.9, adult; I11.0 Hypertensive heart disease with heart failure; E66.01 Morbid (severe) obesity due to excess calories; Z71.3 Dietary counseling and surveillance; E11.9 Type 2 diabetes mellitus without complications; G47.33 Obstructive sleep apnea (adult) (pediatric); F43.10 Post-traumatic stress disorder, unspecified; F10.20 Alcohol dependence, uncomplicated; Z79.82 Long term (current) use of aspirin; Z79.84 Long term (current) use of oral hypoglycemic drugs; Z79.899 Other long term (current) drug therapy

== ENCOUNTER → 2024-03-05 23:18 | Outpatient (BNV) | payer MEDICARE, MEDICAID, SELFPAY | PROVIDERS: Admitting Provider Psychiatry & Neurology Psychiatry; Responsible Provider Registered Nurse; Visit Provider Psychiatry & Neurology Psychiatry | DX: F33.1 Major depressive disorder, recurrent, moderate (principal); F10.20 Alcohol dependence, uncomplicated; F43.11 Post-traumatic stress disorder, acute | CPT/HCPCS: 99232 ==

== ENCOUNTER → 2024-03-05 23:18 | Outpatient (BNV) | payer MEDICARE, MEDICAID, SELFPAY | PROVIDERS: Admitting Provider Psychiatry & Neurology Psychiatry; Responsible Provider Registered Nurse; Visit Provider Physician Assistant | DX: Z02.2 Encounter for examination for admission to residential institution (principal) | CPT/HCPCS: 99429 ==

== ENCOUNTER → 2024-03-05 23:18 | Outpatient (BNV) | payer MEDICARE, MEDICAID, SELFPAY | PROVIDERS: Admitting Provider Psychiatry & Neurology Psychiatry; Responsible Provider Registered Nurse; Visit Provider Registered Nurse | DX: F33.1 Major depressive disorder, recurrent, moderate (principal); F10.20 Alcohol dependence, uncomplicated; F43.11 Post-traumatic stress disorder, acute | CPT/HCPCS: 90792; 99239 ==

== ENCOUNTER 2024-12-16 08:32 | Emergency (ER) | payer OTHER, SELFPAY ==
[2024-12-16] VITALS (7 sets, daily range): BP systolic 144–180; BP diastolic 74–92; PULSE 112–135; RESP 20–22; TEMP 36.6–36.8; O2SAT 93–96; BMI 55.2
--- NOTE | ~2024-12-16 | XR_ITS ---
EXAMINATION: XR CHEST CLINICAL INFORMATION: SOB COMPARISON: 03/17/2024. TECHNIQUE: Frontal view of the chest was obtained. FINDINGS: The cardiac silhouette is prominent but may be partially magnified by technique. Mediastinal and hilar contours are normal. The lungs are clear bilaterally. No focal osseous or soft tissue abnormalities. Degenerative spinal changes. XR/XR chest 1V IMPRESSION: No active disease. Electronically signed by: Edward Lagos MD 12/16/2024 09:12 AM YANET
--- NOTE | 2024-12-16 08:36 | ECG_ITS ---
Test Reason : diff breath Blood Pressure : */* mmHG Vent. Rate : 110 BPM Atrial Rate : 110 BPM P-R Int : 182 ms QRS Dur : 90 ms QT Int : 450 ms P-R-T Axes : 39 -63 13 degrees QTcB Int : 609 ms Sinus tachycardia Left axis deviation Low voltage QRS Cannot rule out Anterior infarct (cited on or before 28-Sep-2022) Prolonged QT Abnormal ECG When compared with ECG of 19-Jan-2024 09:17, T wave inversion no longer evident in Anterior leads Referred By: Barb Tirado Electronically Signed By: Daniel Major
--- NOTE | 2024-12-16 08:37 | ED_ITS ---
HPI - General Adult General Chief complaint: Dyspnea Stated complaint: SOB FOR DAYS Time Seen by Provider: 12/16/24 08:36 History of Present Illness ED Provider: Marlon MORALES narrative: The patient is a 54-year-old male who has is own room/apartment at the [facility] in [place]. He apparently has a history of congestive heart failure, alcoholism, and Also of psychiatric issues. An ambulance was called because of shortness of breath. Paramedics found him short of breath and hypertensive. The patient was a very vague historian. At 1st he seemed to imply that the shortness of breath had come on abruptly this morning. Later he said that he had had it coming on slowly for a few days. He has not had a fever. He has had a cough. He has some swelling of both of his lower legs that he says has been getting worse lately. The patient went on to say that he did not want to be placed under a section 12. He said that he was in [facility] on a section 12 recently, possibly for a prolonged period of time, and he does not want to repeat an experience like that. He denies suicidality or homicidality. Related Data Home Medications ?Medication ?Instructions ?Recorded ?Confirmed atorvastatin 40 mg tablet 40 mg PO DAILY 07/24/23 03/06/24 carvedilol 12.5 mg tablet 25 mg PO BID 07/24/23 03/06/24 dapagliflozin propanediol 10 mg 10 mg PO DAILY 07/24/23 03/06/24 tablet (Farxiga) ibuprofen 600 mg tablet 400 mg PO Q6H PRN Pain 07/24/23 03/06/24 losartan 25 mg tablet 25 mg PO DAILY 07/24/23 03/06/24 Previous Rx's ?Medication ?Instructions ?Recorded folic acid 0.8 mg capsule 0.8 mg PO DAILY #30 caps 01/22/24 furosemide 40 mg tablet 40 mg PO DAILY PRN Edema 30 days 01/22/24 #30 tabs lidocaine 5 % topical ointment 1 appl topical Q6H PRN Pain, 01/22/24 Moderate(Pain Scale 4-6) 30 days #50 grams loperamide 2 mg capsule 2 mg PO Q4H PRN Loose Stool #30 01/22/24 caps metformin 500 mg tablet 500 mg PO BID 30 days #60 tabs 01/22/24 naltrexone 50 mg tablet 50 mg PO DAILY 30 days #30 tabs 01/22/24 olanzapine 5 mg tablet 2.5 mg (1/2 x 5 mg) PO BID PRN 01/22/24 agitation #15 tabs omeprazole 20 mg capsule,delayed 40 mg (2 x 20 mg) PO DAILY #30 caps 01/22/24 release potassium chloride 20 mEq 20 meq PO DAILY 30 days #30 tabs 01/22/24 tablet,extended release(part/cryst) thiamine mononitrate (vit B1) 100 100 mg PO DAILY #30 tabs 01/22/24 mg tablet aspirin 81 mg chewable tablet 81 mg PO DAILY #0 tabs 03/08/24 escitalopram oxalate 10 mg tablet 10 mg PO DAILY 30 days #30 tabs 03/08/24 Allergies Allergy/AdvReac Type Severity Reaction Status Date / Time No Known Allergies Allergy Verified 12/16/24 08:42 Review of Systems 2 Review of Systems: Yes all other systems are reviewed and are negative [facility] Past Medical History Medical History (Updated 12/16/24 @ 13:03 by Nir Mason MD) TERRIE on CPAP Morbid obesity Acute gastritis with bleeding Systolic heart failure Alcohol use disorder, severe, dependence Herniated disc Arthritis PTSD (post-traumatic stress disorder) Depression Anxiety Obesity Sleep apnea Hypertension Diabetes mellitus, type 2 Family History Family History Mother Diabetes Social History Social History Household Members: None Housing: Apartment Do you presently have visiting nurse or other home services: No Alcohol intake: current Alcohol intake frequency: holidays/special occasions only Alcohol type: beer Patient Tobacco Use Status: Never used Tobacco Smoked in Last 30 Days: No e-Cigarette/Vaping Use: Never Used Second Hand Smoke Exposure: No Use of substances other than those prescribed or required for medical reasons: No Substance Use Type: Marijuana and Prescription Drugs Advance Directives: No Advance Directives Information Provided: Yes service: Yes ([employer] [id number] honorable discharge) Current occupational status: employed Sexual orientation: Don't Know Physical Exam ED Vital Signs: Vital Signs - 24 hr 12/16/24 08:36 12/16/24 08:49 12/16/24 09:41 Temperature 98.3 F Pulse Rate 112 H 115 H Respiratory Rate 20 22 H 20 Blood Pressure 144/92 H Pulse Oximetry 93 Oxygen Delivery Method Room Air 12/16/24 09:43 12/16/24 12:05 12/16/24 13:06 Temperature 98.2 F 97.9 F Pulse Rate 115 H 115 H 135 H Respiratory Rate 20 20 20 Blood Pressure 156/74 H Pulse Oximetry 95 94 Oxygen Delivery Method Room Air Room Air 12/16/24 13:11 Temperature 97.9 F Pulse Rate 135 H Respiratory Rate 20 Blood Pressure 156/74 H Pulse Oximetry 94 Oxygen Delivery Method Room Air BMI result Body Mass Index 55.2 Const Other: The patient has a large 54-year-old man who arrived on CPAP with paramedics. He seemed to be short of breath although he was not obviously working very hard. He was not diaphoretic. HENMT Other: Face is symmetrical. Mucous membranes moist. Eyes General: appearance normal, both eyes and all related structures Conjunctivae: conjunctivae normal Pupils: Equal, round and reactive pupils present EOM: EOMs intact bilaterally Neck Other: Neck is supple. No obvious JVD. Resp Other: Breath sounds were somewhat diminished but without vi wheezes or crackles. Breath sounds were equal. Cardio Rate: regular rate Rhythm: regular rhythm Heart sounds: S1 normal heart sound present and S2 normal heart sound present GI Other: Abdomen is soft and nontender Skin General skin exam: no rashes or lesions noted Neuro Other: The patient is awake and alert. He has an unusual affect. Cranial nerves are intact. He moves his extremities symmetrically. No focal defect. Cranial nerves: Yes Equal, round and reactive pupils present Extrem Other: Peripheral edema both lower legs. Edema is symmetrical. Medications Administered Discontinued Medications Generic Name Dose Route Start Last Admin Trade Name Freq PRN Reason Stop Dose Admin Albuterol Sulfate 2.5 mg/ 0 mg 12/16/24 08:43 12/16/24 08:49 Albuterol/Ipratropium 3 ml INHALE 12/16/24 08:44 1 dose ONCE ONE Administration Albuterol Sulfate 2.5 mg/ 0 mg 12/16/24 09:40 12/16/24 09:43 Albuterol/Ipratropium 3 ml INHALE 12/16/24 09:41 1 dose ONCE ONE Administration Lorazepam 2 mg 12/16/24 12:03 12/16/24 12:14 Lorazepam 1 Mg Tablet PO 12/16/24 12:04 2 mg ONCE ONE Administration Methylprednisolone Sodium Succinate 125 mg 12/16/24 09:55 12/16/24 10:17 Methylprednisolone Sod Succ 125 Mg/2 Ml Vial IVPUSH 12/16/24 09:56 125 mg ONCE ONE Administration Medical Decision Making Medical Decision Making [facility] Narrative: The patient had 1st seemed to arrive out of concern for significant shortness of breath and was on CPAP with the paramedics. He was also tachycardic. He was also somewhat hypertensive. Based on a history of congestive heart failure and his initial high blood pressure and tachycardia I thought this was probably going to tube turner to be congestive heart failure however his x-ray did not show that in his BNP is undetectable. Given that he was complaining of shortness of breath with a clear chest x-ray I obtained a D-dimer that was undetectable also. Therefore it seemed as though the patient is presentation for shortness of breath did not show congestive heart failure, pneumonia, pulmonary embolism, or other easily identifiable cause of shortness of breath. He was given some updrafts and steroids in case this was some kind of unusual presentation of a COPD exacerbation. The patient is breathing seemed to improve and he came off BiPAP so that he was on room air with a an oxygen saturation of 94% looking reasonably comfortable although he remained tachycardic. I spoke to the patient many times hoping to clarify the history of his present illness. He tended to be quite vague and spoke more about his fear of being placed under a section 12 than anything else. He said his last alcohol was yesterday. his alcohol level ultimately came back at 268. The patient did not want to stay in the emergency department. I do not have any clear indication for holding him against his will and therefore he was discharged. Lab Data 12/16/24 08:50 12/16/24 08:50 Labs: Lab Results 12/16/24 12/16/24 12/16/24 Range/Units 08:50 08:51 08:57 WBC 6.6 (4.8-10.8) X10*3/uL RBC 4.88 (4.60-5.80) X10*6/uL Hgb 14.3 (14.0-18.0) g/dl Hct 42.7 (42.0-52.0) % MCV 87.5 (80.0-98.0) fL MCH 29.3 (27.0-33.0) pg MCHC 33.5 (31.0-36.0) g/dl RDW 16.5 H (11.0-16.0) % Plt Count 191 D (160-400) X10*3/uL MPV 10.3 (9.4-12.4) fL Immature Gran % (Auto) 0.3 (0.0-0.4) % Neut % (Auto) 57.9 (45-73) % Lymph % (Auto) 32.6 (20-40) % [place] % (Auto) 6.5 (2-11) % Eos % (Auto) 1.8 (0-4) % Baso % (Auto) 0.9 (0-2) % Lymph # (Auto) 2.1 (1.2-4.9) X10*3/uL [place] # (Auto) 0.4 (0.1-1.2) X10*3/uL Eos # (Auto) 0.1 (0.0-0.4) X10*3/uL Baso # (Auto) 0.1 (0.0-0.2) X10*3/uL Abs Immat Gran (auto) 0.02 (0.00-0.03) X10*3/uL Absolute Neuts (auto) 3.8 (2.0-8.3) x10*3/uL Absolute Nucleated RBC 0.000 (0.0-0.012) X10*3/uL Nucleated RBC % (auto) 0.0 (0.0-0.2) /100WBC PT 11.0 (10.9-12.4) SEC INR 0.9 (0.9-1.1) D-Dimer High Sensitivty < 150 NG/ML VBG pH 7.39 (7.32-7.43) VBG pCO2 50 mmHg VBG pO2 64 mmHg VBG HCO3 30 H (22-26) mmol/L VBG O2 Saturation 86.0 % VBG Base Excess 4.4 mmol/L Sodium 141 (135-145) mmol/L Potassium 4.5 (3.3-5.1) mmol/L Chloride 102 (96-108) mmol/L Carbon Dioxide 25 (22-29) mmol/L Anion Gap 19 (12-20) BUN 24 H (9-16) mg/dL Creatinine 0.79 (0.5-1.4) mg/dL Estim Creat Clear Calc 175.7 Estimated GFR > 60 Random Glucose 148 H (60-115) mg/dL Lactic Acid 3.4 H* (0.5-2.0) mmol/L Calcium 8.2 L (8.4-10.2) mg/dL Magnesium 2.1 (1.6-2.6) mg/dL Total Bilirubin 0.3 (0.0-1.0) mg/dL AST 34 (5-37) U/L ALT 28 (0-40) U/L Alkaline Phosphatase 100 (39-117) U/L Troponin I High Sens 12.3 (<3.5-35.0) ng/L C-Reactive Protein 0.53 H (< or = 0.50) mg/dL B-Natriuretic Peptide < 10 (<100) pg/mL Total Protein 8.1 H (6.5-8.0) g/dL Albumin 4.0 (3.5-5.0) g/dL Procalcitonin 0.03 ng/mL Urine Color Urine Appearance Urine pH (5.0-9.0) Ur Specific [place] (1.005-1.025) Urine Protein (Neg-Trace) mg/dL Urine Glucose (UA) (Negative) mg/dL Urine Ketones (Negative) mg/dL Urine Blood (Negative) Urine Nitrite (Negative) Ur Leukocyte Esterase (Negative) Ethyl Alcohol 268 mg/dL Influenza Type A (PCR) (Negative) Influenza Type B (PCR) (Negative) RSV RNA Qual (PCR) (Negative) SARS-CoV-2 RNA (RT-PCR) (Negative) 12/16/24 12/16/24 Range/Units 09:10 10:20 WBC (4.8-10.8) X10*3/uL RBC (4.60-5.80) X10*6/uL Hgb (14.0-18.0) g/dl Hct (42.0-52.0) % MCV (80.0-98.0) fL MCH (27.0-33.0) pg MCHC (31.0-36.0) g/dl RDW (11.0-16.0) % Plt Count (160-400) X10*3/uL MPV (9.4-12.4) fL Immature Gran % (Auto) (0.0-0.4) % Neut % (Auto) (45-73) % Lymph % (Auto) (20-40) % [place] % (Auto) (2-11) % Eos % (Auto) (0-4) % Baso % (Auto) (0-2) % Lymph # (Auto) (1.2-4.9) X10*3/uL [place] # (Auto) (0.1-1.2) X10*3/uL Eos # (Auto) (0.0-0.4) X10*3/uL Baso # (Auto) (0.0-0.2) X10*3/uL Abs Immat Gran (auto) (0.00-0.03) X10*3/uL Absolute Neuts (auto) (2.0-8.3) x10*3/uL Absolute Nucleated RBC (0.0-0.012) X10*3/uL Nucleated RBC % (auto) (0.0-0.2) /100WBC PT (10.9-12.4) SEC INR (0.9-1.1) D-Dimer High Sensitivty NG/ML VBG pH (7.32-7.43) VBG pCO2 mmHg VBG pO2 mmHg VBG HCO3 (22-26) mmol/L VBG O2 Saturation % VBG Base Excess mmol/L Sodium (135-145) mmol/L Potassium (3.3-5.1) mmol/L Chloride (96-108) mmol/L Carbon Dioxide (22-29) mmol/L Anion Gap (12-20) BUN (9-16) mg/dL Creatinine (0.5-1.4) mg/dL Estim Creat Clear Calc Estimated GFR Random Glucose (60-115) mg/dL Lactic Acid (0.5-2.0) mmol/L Calcium (8.4-10.2) mg/dL Magnesium (1.6-2.6) mg/dL Total Bilirubin (0.0-1.0) mg/dL AST (5-37) U/L ALT (0-40) U/L Alkaline Phosphatase (39-117) U/L Troponin I High Sens (<3.5-35.0) ng/L C-Reactive Protein (< or = 0.50) mg/dL B-Natriuretic Peptide (<100) pg/mL Total Protein (6.5-8.0) g/dL Albumin (3.5-5.0) g/dL Procalcitonin ng/mL Urine Color Yellow Urine Appearance Clear Urine pH 5.5 (5.0-9.0) Ur Specific [place] 1.020 (1.005-1.025) Urine Protein Trace (Neg-Trace) mg/dL Urine Glucose (UA) Negative (Negative) mg/dL Urine Ketones 15 (Negative) mg/dL Urine Blood Negative (Negative) Urine Nitrite Negative (Negative) Ur Leukocyte Esterase Negative (Negative) Ethyl Alcohol mg/dL Influenza Type A (PCR) NEGATIVE (Negative) Influenza Type B (PCR) NEGATIVE (Negative) RSV RNA Qual (PCR) NEGATIVE (Negative) SARS-CoV-2 RNA (RT-PCR) NEGATIVE (Negative) Discharge Plan Discharge Clinical Impression: Shortness of breath, Alcoholism Patient Disposition: Home, Self-Care Additional Instructions: Please resume your normal medications. Please try to use your CPAP machine as much as you can when you sleep at night. Please work on getting a new primary care doctor. Return to the emergency room if you feel significantly worse. Prescriptions: No Action aspirin 81 mg Tablet,Chewable 81 mg PO DAILY Qty: 0 0RF escitalopram oxalate 10 mg Tablet 10 mg PO DAILY 30 Days Qty: 30 0RF atorvastatin 40 mg tablet 40 mg PO DAILY carvedilol 12.5 mg tablet 25 mg PO BID losartan 25 mg tablet 25 mg PO DAILY ibuprofen 600 mg tablet 400 mg PO Q6H PRN (Reason: Pain) dapagliflozin propanediol [Farxiga] 10 mg tablet 10 mg PO DAILY naltrexone 50 mg Tablet 50 mg PO DAILY 30 Days Qty: 30 0RF olanzapine 5 mg Tablet 2.5 mg PO BID PRN (Reason: agitation) Qty: 15 0RF potassium chloride 20 mEq Tablet,Er Particles/Crystals 20 meq PO DAILY 30 Days Qty: 30 0RF lidocaine 5 % Ointment 1 appl topical Q6H PRN (Reason: Pain, Moderate(Pain Scale 4-6)) 30 Days Qty: 50 1RF Protocol: Apply to: Apply to: lower back folic acid 0.8 mg capsule 0.8 mg PO DAILY Qty: 30 2RF thiamine mononitrate (vit B1) 100 mg Tablet 100 mg PO DAILY Qty: 30 1RF loperamide 2 mg Capsule 2 mg PO Q4H PRN (Reason: Loose Stool) Qty: 30 0RF furosemide 40 mg tablet 40 mg PO DAILY PRN (Reason: Edema) 30 Days Qty: 30 0RF metformin 500 mg tablet 500 mg PO BID 30 Days Qty: 60 0RF omeprazole 20 mg capsule,delayed release(DR/EC) 40 mg PO DAILY Qty: 30 0RF Interventions: ED Discharge Assessment Last Done: 12/16/24 13:11 Discharge Date/Time: 12/16/24 13:19 Print Language: Belizean
[2024-12-16] MEDS: Albuterol Sulfate 2.5 MG, Albuterol/Iprat 2.5/0.5MG 3 ML 3 ML INHALE ×2 (08:49→09:43)
[2024-12-16 08:58] LABS: MANUAL DIFF FLAG NO
--- NOTE | 2024-12-16 09:00 | PC.RT ---
Pt came in via EMS on CPAP. Pt trialed off and SATs <88% on RA. Pt placed on 2L NC, SATs 94%. Pt has pitting edema to lower extremities and complains of SOB. Pt given neb per protocol. L/s diminished bilaterally. Will continue to monitor. CXR taken and awaiting lab results.
[2024-12-16 09:02] LABS: Venous Blood Gas Refer to POC result
[2024-12-16 09:03] LABS: Basophils Absolute Auto 0.1 X10*3/uL (0.0-0.2); Basophils Percent Auto 0.9 % (0-2); Eosinophils Absolute Auto 0.1 X10*3/uL (0.0-0.4); Eosinophils Percent Auto 1.8 % (0-4); Hematocrit 42.7 % (42.0-52.0); Hemoglobin 14.3 g/dl (14.0-18.0); Imm Gran Abs Auto 0.02 X10*3/uL (0.00-0.03); Imm Gran Pct Auto 0.3 % (0.0-0.4); Lymphocytes Absolute Auto 2.1 X10*3/uL (1.2-4.9); Lymphocytes Percent Auto 32.6 % (20-40); Mean Corpuscular HGB Conc 33.5 g/dl (31.0-36.0); Mean Corpuscular Hemoglobin 29.3 pg (27.0-33.0); Mean Corpuscular Volume 87.5 fL (80.0-98.0); Mean Platelet Volume 10.3 fL (9.4-12.4); Monocytes Absolute Auto 0.4 X10*3/uL (0.1-1.2); Monocytes Percent Auto 6.5 % (2-11); Neutrophils Absolute Auto 3.8 x10*3/uL (2.0-8.3); Neutrophils Percent Auto 57.9 % (45-73); Platelet Count 191 X10*3/uL (160-400); Red Blood Count 4.88 X10*6/uL (4.60-5.80); Red Cell Distribution Width 16.5 % (11.0-16.0); White Blood Count 6.6 X10*3/uL (4.8-10.8)
[2024-12-16 09:03] LABS: VBG Base Excess 4.4 mmol/L; VBG HCO3 30 mmol/L (22-26); VBG pCO2 50 mmHg; VBG pH 7.39 (7.32-7.43); VBG pO2 64 mmHg
[2024-12-16 09:15] LABS: INTERNATIONAL NORM RATIO 0.9 (0.9-1.1)
[2024-12-16 09:16] LABS: Ethanol 268 mg/dL
[2024-12-16 09:18] LABS: Alanine Aminotransferase 28 U/L (0-40); Alkaline Phosphatase 100 U/L (39-117); Anion Gap 19 (12-20); Aspartate Amino Transferase 34 U/L (5-37); Bilirubin Total 0.3 mg/dL (0.0-1.0); Blood Urea Nitrogen 24 mg/dL (9-16); C Reactive Protein 0.53 mg/dL (< or = 0.50); Calcium 8.2 mg/dL (8.4-10.2); Carbon Dioxide 25 mmol/L (22-29); Chloride 102 mmol/L (96-108); Creatinine Clr Calc Pharmacy 175.7; Estimated Glomerular Filt Rate > 60; Glucose Random 148 mg/dL (60-115); Magnesium 2.1 mg/dL (1.6-2.6); Potassium 4.5 mmol/L (3.3-5.1); Sodium 141 mmol/L (135-145); Total Protein 8.1 g/dL (6.5-8.0)
[2024-12-16 09:22] LABS: B Type Natriuretic Peptide < 10 pg/mL (<100)
[2024-12-16 09:26] LABS: Troponin-I High Sensitivity 12.3 ng/L (<3.5-35.0)
--- OUTSIDE RECORDS SUMMARY | 2024-12-16 09:27 | XMS_ITS | Clinical Summary ---
Author Organization [facility] Address [address] [place] [address] Care Team Providers Care Case Technician Name Role Phone Ruperto Guillen MD Primary Care Provider [phone] Allergies No known active allergies Medications * This document contains information received from the source organization and may not represent a complete record from that organization. pseudoephedrine (SUDAFED) 30 mg tablet Take 30 mg by mouth every 4 hours as needed for congestion. Active omeprazole (PriLOSEC) 20 mg capsule Take 20 mg by mouth daily. Active gabapentin (NEURONTIN) 300 mg capsule Take 300 mg by mouth 3 times a day. Active naproxen (NAPROSYN) 250 mg tablet Take 250 mg by mouth 2 times a day with meals. Active metoprolol succinate XL (TOPROL XL) 25 mg tablet Take 25 mg by mouth daily. Active citalopram (CeleXA) 20 mg tablet Take 20 mg by mouth daily. Active cloNIDine (CATAPRES) 0.1 mg tablet Take 0.1 mg by mouth 2 times a day. Active clonazePAM (KlonoPIN) 1 mg tablet Take 1 mg by mouth 2 times a day. Active cetirizine (ZyrTEC) 10 mg tablet Take 10 mg by mouth daily. Active mirtazapine (REMERON) 30 mg tablet Take 30 mg by mouth nightly. Active fluticasone propionate (FLONASE) 50 mcg/actuation nasal spray Administer 1 spray into each nostril daily. Active escitalopram (LEXAPRO) 20 mg tablet Take 20 mg by mouth daily. Active metFORMIN (GLUCOPHAGE) 500 mg tablet Take 1 tablet (500 mg total) by mouth 2 times a day with meals. 60 tablet 0 Active carvediloL (COREG) 6.25 mg tablet Take 6.25 mg by mouth 2 times a day with meals. Active aspirin 81 mg EC tablet Take 81 mg by mouth once a day. Active furosemide (LASIX) 40 mg tablet Take 40 mg by mouth once a day. Active atorvastatin (LIPITOR) 40 mg tablet Take 40 mg by mouth nightly. Active losartan (COZAAR) 25 mg tablet Take 25 mg by mouth once a day. Active Social History Tobacco Use Types Packs/Day Years Used Date Smoking Tobacco: Unknown Tobacco Cessation:Counseling Given: Not Answered Sex and Gender Information Value Date Recorded Sex Assigned at Not on file Legal Sex Male 9:46 AM EDT Gender Identity Not on file Sexual Orientation Not on file Last Filed Vital Signs Vital Sign Reading Time Taken Comments Blood Pressure 108/74 04/22/2023 5:51 PM EDT Pulse 108 04/22/2023 5:51 PM EDT Temperature 36.6 ??C (97.9 ??F) 04/22/2023 5:51 PM ED T Respiratory Rate 20 04/22/2023 5:51 PM EDT Oxygen Saturation 95% 04/22/2023 5:51 PM EDT Inhaled Oxygen Concentration - - Weight 188.2 kg (415 lb) 04/21/2023 2:04 PM EDT Height 180.3 cm (5' 11 ) 04/21/2023 2:04 PM EDT Body Mass Index 57.88 04/21/2023 2:04 PM EDT Plan of Treatment Health Maintenance Due Date Last Done Comments Cologuard 1972 Colon Cancer Screening 1972 Colonoscopy 1972 FOBT / Fit Test 1972 HIV Screening 1972 Hepatitis C Screening 1972 Sigmoidoscopy 1972 Zoster Vaccines (1 of 2) 2022 COVID-19 Vaccine ( season) 2024 11/20/2021, 01/08/2021, 12/11/2020 Influenza Vaccine (#1) 2024 3, 12/27/2021, 12/27/2021, Additional history exists Alcohol/Substance Use Screening 11/13/2024 Depression Evaluation 11/13/2024 Social Drivers of Health Annual Screening 11/13/2024 DTaP,Tdap,and Td Vaccines (4 - Td or Tdap) 01/15/2030 01/16/2020, 11/13/2018, 02/23/2018 RSV Vaccine (60+ years old and patients) (1 - 1-dose 75+ series) 2047 Pneumococcal Vaccine: Pediatric (0-5 Years) and At-Risk Patients (6-64 Years) Aged Out 01/16/2020 No longer eligible based on patient's age to complete this topic Hepatitis B Vaccines Completed 12/27/2021, 02/04/2021, 07/24/2020 Insurance [employer] MEDICARE Care Teams Case Technician Relationship Specialty Start Date End Date Ruperto Guillen MD PCP - General Internal Medicine 04/12/20
--- OUTSIDE RECORDS SUMMARY | 2024-12-16 09:27 | XMS_ITS | Referral Summary ---
Author Organization [facility] Address [address] [place] [address] Care Team Providers Care Baby Counselor Name Role Phone Ruperto Guillen MD Primary Care Provider Allergies No known active allergies Medications * [...] 04/21/2023 2:04 PM EDT Plan of Treatment Not on file Insurance [facility] MEDICARE Care Teams Baby Counselor Relationship Specialty Start Date End Date Ruperto Guillen MD PCP - General Internal Medicine 04/12/20
[2024-12-16 09:30] LABS: Lactic Acid 3.4 mmol/L (0.5-2.0)
[2024-12-16 09:47] LABS: D Dimer High Sensitivity < 150 NG/ML
[2024-12-16 09:53] LABS: Influenza A PCR NEGATIVE (Negative); Influenza B PCR NEGATIVE (Negative); Resp Syncy Virus RNA Qual PCR NEGATIVE (Negative); SARS COV2 PCR INHOUSE NEGATIVE (Negative)
[2024-12-16] MEDS: methylPREDNISolone Sod Succ 125 MG/2 ML VIAL IVPUSH (10:17)
[2024-12-16 10:27] LABS: Appearance Urine Clear; Color Urine Yellow; Glucose Urine UA Negative (Negative); Leukocyte Esterase Urine Negative (Negative); Nitrite Urine Negative (Negative); PH 5.5 (5.0-9.0); Urine Blood Negative (Negative); Urine Ketones 15 mg/dL (Negative); Urine Protein Trace mg/dL (Neg-Trace)
[2024-12-16 10:58] LABS: Reflex Lactate? Lactic Acid Added
--- NOTE | 2024-12-16 11:17 | ECG_ITS ---
Test Reason : tachy Blood Pressure : */* mmHG Vent. Rate : 134 BPM Atrial Rate : 134 BPM P-R Int : 138 ms QRS Dur : 88 ms QT Int : 310 ms P-R-T Axes : 50 -80 41 degrees QTcB Int : 462 ms Sinus tachycardia Left axis deviation Low voltage QRS Possible Anterolateral infarct (cited on or before 24-Dec-2022) Abnormal ECG When compared with ECG of 16-Dec-2024 08:55, No significant change was found Referred By: Nir Mason Electronically Signed By: Daniel Major
[2024-12-16] MEDS: LORazepam 1 MG TABLET 2 MG PO (12:14)
[2024-12-16 13:32] LABS: Procalcitonin 0.03 ng/mL
== END 2024-12-16 13:19 | disposition home or self-care (01) ==
PROVIDERS: Physician Assistant Medical; Emergency Provider Emergency Medicine
DX: R06.02 Shortness of breath (principal); F10.20 Alcohol dependence, uncomplicated; Y90.8 Blood alcohol level of 240 mg/100 ml or more; R00.0 Tachycardia, unspecified; R94.31 Abnormal electrocardiogram [ECG] [EKG]; Z79.899 Other long term (current) drug therapy; Z03.818 Encounter for observation for suspected exposure to other biological agents ruled out
CPT/HCPCS: 0241U; 36415; 71045; 80053; 80307; 81003; 82803; 83605; 83735; 83880; 84145; 84484; 85025; 85379; 85610; 86140; 87040; 87147; 87205; 93005; 94640; 96374; 99284; 99285; J2919

== ENCOUNTER → 2024-12-16 08:36 | Outpatient (BNV) | payer MEDICARE, MEDICAID, SELFPAY | PROVIDERS: Emergency Provider Emergency Medicine; Visit Provider Internal Medicine Cardiovascular Disease | DX: R00.0 Tachycardia, unspecified (principal); R94.31 Abnormal electrocardiogram [ECG] [EKG] | CPT/HCPCS: 93010 ==

== ENCOUNTER → 2024-12-16 08:36 | Outpatient (BNV) | payer MEDICARE, MEDICAID, SELFPAY | PROVIDERS: Emergency Provider Emergency Medicine; Visit Provider Radiology Diagnostic Radiology | DX: R06.02 Shortness of breath (principal) | CPT/HCPCS: 71045 ==

== ENCOUNTER 2024-12-17 05:13 | Inpatient (IN) | payer OTHER, MEDICARE, MEDICAID, SELFPAY ==
[2024-12-17] VITALS (10 sets, daily range): BP systolic 134–162; BP diastolic 80–108; PULSE 100–134; RESP 16–21; TEMP 36.1–36.8; O2SAT 94–97; BMI 55.5
--- NOTE | 2024-12-17 | ECG_ITS ---
Test Reason : CP Blood Pressure : */* mmHG Vent. Rate : 120 BPM Atrial Rate : 120 BPM P-R Int : 172 ms QRS Dur : 90 ms QT Int : 324 ms P-R-T Axes : 70 26 42 degrees QTcB Int : 457 ms Sinus tachycardia Low voltage QRS Cannot rule out Anterior infarct (cited on or before 28-Sep-2022) Abnormal ECG When compared with ECG of 16-Dec-2024 11:27, Questionable change in QRS axis Referred By: Generic ED Physician Electronically Signed By: Daniel Major
--- NOTE | ~2024-12-17 | XR_ITS ---
CLINICAL HISTORY: cp 1 view chest x-ray Comparison: CR/SR - XR CHEST 1V - 12/16/24 08:55 EST Findings: No consolidation or effusion. Heart size is normal. No acute fracture. IMPRESSION: 1. No acute findings. This document has been electronically signed by: Leona Munoz MD on 12/17/2024 06:10:19
[2024-12-17 05:35] LABS: Basophils Percent Auto 0.1 % (0-2); Hemoglobin 13.6 g/dl (14.0-18.0); Imm Gran Abs Auto 0.04 X10*3/uL (0.00-0.03); Imm Gran Pct Auto 0.5 % (0.0-0.4); Lymphocytes Absolute Auto 0.8 X10*3/uL (1.2-4.9); Lymphocytes Percent Auto 10.1 % (20-40); MANUAL DIFF FLAG NO; Mean Corpuscular HGB Conc 33.2 g/dl (31.0-36.0); Mean Corpuscular Hemoglobin 29.1 pg (27.0-33.0); Mean Corpuscular Volume 87.8 fL (80.0-98.0); Mean Platelet Volume 10.3 fL (9.4-12.4); Monocytes Absolute Auto 0.6 X10*3/uL (0.1-1.2); Monocytes Percent Auto 7.7 % (2-11); Neutrophils Percent Auto 81.6 % (45-73); Platelet Count 181 X10*3/uL (160-400); Red Blood Count 4.67 X10*6/uL (4.60-5.80); Red Cell Distribution Width 16.5 % (11.0-16.0); White Blood Count 7.4 X10*3/uL (4.8-10.8)
[2024-12-17 05:40] LABS: Prothrombin Time 11.6 SEC (10.9-12.4)
--- NOTE | 2024-12-17 05:45 | PC.NURSE ---
pt biba from home, a&ox4, respirations even and unlabored. pt reporting sudden onset of chest pain 05/22 starting today, pt reports cardiac hx and is on 81 of asprin. 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 pt also placed on 2L nc for comfort when sating 92% on ems arrival. pt 98% on ra at this time. pt reports he has also been experiencing nausea and chills, reports he has been around sick contacts but unsure what they may have. pt nsr on tele. 20G placed in right hand, labs obtained.
--- NOTE | 2024-12-17 05:51 | PC.NURSE ---
per lab, pt seen here at [facility] yesterday, blood cultures drawn. critical today- one bottle blood culture gram + cocci in clusters seen. aware of critical result.
[2024-12-17 05:54] LABS: Alanine Aminotransferase 28 U/L (0-40); Albumin Level 4.1 g/dL (3.5-5.0); Alkaline Phosphatase 89 U/L (39-117); Anion Gap 19 (12-20); Aspartate Amino Transferase 33 U/L (5-37); Bilirubin Total 0.7 mg/dL (0.0-1.0); Blood Urea Nitrogen 18 mg/dL (9-16); Calcium 8.9 mg/dL (8.4-10.2); Carbon Dioxide 15 mmol/L (22-29); Chloride 107 mmol/L (96-108); Creatinine Clr Calc Pharmacy 180.8; Estimated Glomerular Filt Rate > 60; Glucose Random 264 mg/dL (60-115); Potassium 4.3 mmol/L (3.3-5.1); Sodium 137 mmol/L (135-145); Total Protein 8.5 g/dL (6.5-8.0); Troponin-I High Sensitivity 12.8 ng/L (<3.5-35.0)
--- OUTSIDE RECORDS SUMMARY | 2024-12-17 05:59 | XMS_ITS | Clinical Summary ---
Author Organization [facility] Address [address] [place] [address] Care Team Providers Care Field Training Agent Name Role Phone Ruperto Guillen MD Primary [...] B Vaccines Completed 12/27/2021, 02/04/2021, 07/24/2020 Insurance [employer] MEDICARE Care Teams Field Training Agent Relationship Specialty Start Date End Date Ruperto Guillen MD PCP - General Internal Medicine 04/12/20
[2024-12-17 06:17] LABS: Influenza A PCR NEGATIVE (Negative); Influenza B PCR NEGATIVE (Negative); Resp Syncy Virus RNA Qual PCR NEGATIVE (Negative); SARS COV2 PCR INHOUSE NEGATIVE (Negative)
--- NOTE | 2024-12-17 07:03 | PC.NURSE ---
lab confirmed with this rn at this time, blood culture negative for MRSA/SA, provider aware.
--- NOTE | 2024-12-17 07:55 | ECG_ITS ---
Test Reason : TACHYCARDIA Blood Pressure : */* mmHG Vent. Rate : 129 BPM Atrial Rate : 129 BPM P-R Int : 144 ms QRS Dur : 88 ms QT Int : 306 ms P-R-T Axes : 46 -47 26 degrees QTcB Int : 448 ms Sinus tachycardia with Premature supraventricular complexes Left axis deviation Low voltage QRS Septal infarct (cited on or before 28-Sep-2022) Possible Lateral infarct (cited on or before 24-Dec-2022) Abnormal ECG When compared with ECG of 17-Dec-2024 05:20, Premature supraventricular complexes are now Present Questionable change in initial forces of Septal leads Referred By: Generic ED Physician Electronically Signed By: Daniel Major
--- NOTE | 2024-12-17 08:23 | ED.CHESTPAIN ---
HPI - Chest Pain General Chief Complaint: Chest Pain Stated Complaint: chest pain/sob Time Seen by Provider: 12/17/24 08:23 History of Present Illness ED Provider: Marlon MORALES narrative: The patient is a 54-year-old male who lives at the [facility] facility in [place]. He has his own room there. He was seen here yesterday for a variety of complaints and then ended up leaving somewhat abruptly. He had arrived yesterday with paramedics on CPAP complaining of shortness of breath. He was tachycardic. His medical workup however was not very revealing. There was no evidence of an acute coronary syndrome or congestive heart failure or pulmonary embolism. His alcohol level was elevated at 268. Ultimately the patient seemed to feel better and requested discharge. The patient says that after he left the hospital yesterday he [facility] about trying to get into some kind of detox program. He rested tonight but this morning called an ambulance to come here. He was initially complaining of chest pain but now he tells me that he really just wants to get into some kind of detox program through the [facility]. Related Data Home Medications ?Medication ?Instructions ?Recorded ?Confirmed atorvastatin 40 mg tablet 40 mg PO DAILY 07/24/23 03/06/24 carvedilol 12.5 mg tablet 25 mg PO BID 07/24/23 03/06/24 dapagliflozin propanediol 10 mg 10 mg PO DAILY 07/24/23 03/06/24 tablet (Farxiga) ibuprofen 600 mg tablet 400 mg PO Q6H PRN Pain 07/24/23 03/06/24 losartan 25 mg tablet 25 mg PO DAILY 07/24/23 03/06/24 Previous Rx's ?Medication ?Instructions ?Recorded folic acid 0.8 mg capsule 0.8 mg PO DAILY #30 caps 01/22/24 furosemide 40 mg tablet 40 mg PO DAILY PRN Edema 30 days 01/22/24 #30 tabs lidocaine 5 % topical ointment 1 appl topical Q6H PRN Pain, 01/22/24 Moderate(Pain Scale 4-6) 30 days #50 grams loperamide 2 mg capsule 2 mg PO Q4H PRN Loose Stool #30 01/22/24 caps metformin 500 mg tablet 500 mg PO BID 30 days #60 tabs 01/22/24 naltrexone 50 mg tablet 50 mg PO DAILY 30 days #30 tabs 01/22/24 olanzapine 5 mg tablet 2.5 mg (1/2 x 5 mg) PO BID PRN 01/22/24 agitation #15 tabs omeprazole 20 mg capsule,delayed 40 mg (2 x 20 mg) PO DAILY #30 caps 01/22/24 release potassium chloride 20 mEq 20 meq PO DAILY 30 days #30 tabs 01/22/24 tablet,extended release(part/cryst) thiamine mononitrate (vit B1) 100 100 mg PO DAILY #30 tabs 01/22/24 mg tablet aspirin 81 mg chewable tablet 81 mg PO DAILY #0 tabs 03/08/24 escitalopram oxalate 10 mg tablet 10 mg PO DAILY 30 days #30 tabs 03/08/24 Allergies Allergy/AdvReac Type Severity Reaction Status Date / Time No Known Allergies Allergy Verified 12/17/24 05:20 Review of Systems Review of Systems: Yes all other systems are reviewed and are negative PMFSH Past Medical History Medical History (Updated 12/17/24 @ 18:45 by Nir Mason MD) TERRIE on CPAP Morbid obesity Acute gastritis with bleeding Systolic heart failure Alcohol use disorder, severe, dependence Herniated disc Arthritis PTSD (post-traumatic stress disorder) Depression Anxiety Obesity Sleep apnea Hypertension Diabetes mellitus, type 2 Family History Family History Mother Diabetes Social History Social History Household Members: None Housing: Apartment Do you presently have visiting nurse or other home services: No Alcohol intake: current Alcohol intake frequency: holidays/special occasions only Alcohol type: beer Patient Tobacco Use Status: Never used Tobacco Smoked in Last 30 Days: No e-Cigarette/Vaping Use: Never Used Second Hand Smoke Exposure: No Use of substances other than those prescribed or required for medical reasons: No Substance Use Type: Marijuana and Prescription Drugs Advance Directives: No Advance Directives Information Provided: Yes Do you have a plan to hurt others: No Plan service: Yes ([employer] [id number] honorable discharge) Current occupational status: employed Sexual orientation: Don't Know Physical Exam Vital Signs: Vital Signs: Last Vital Signs Temp 97.9 F 12/17/24 18:38 Pulse 127 H 12/17/24 18:38 Resp 18 12/17/24 18:38 BP 145/88 H 12/17/24 18:38 Pulse Ox 96 12/17/24 18:38 O2 Del Method Room Air 12/17/24 18:38 BMI result Body Mass Index 55.5 HEENT: Other: Face is symmetrical. Mucous membranes moist. Eyes: Other: Pupils are round equal, conjunctivae are clear Neck: Other: Moving the neck easily, no swelling, no JVD Resp: Effort & Inspection: normal respiratory effort Auscultation: clear to auscultation bilaterally Cardio: Rate: tachycardic Rhythm: regular rhythm Heart sounds: S1 normal heart sound present and S2 normal heart sound present GI: Other: The abdomen is soft and nontender Skin: Other: Skin is dry and unremarkable Neuro: Other: The patient is awake and alert. Mental status is clear. Cranial nerves are intact. He moves his extremities normally. Extrem: Other: The patient has some mild bilateral edema to the lower legs and feet. Medications Administered Discontinued Medications Generic Name Dose Route Start Last Admin Trade Name Isaiahq PRN Reason Stop Dose Admin Lactated Ringer's 1,000 mls @ 999 mls/hr 12/17/24 10:30 12/17/24 10:41 Lr IV 12/17/24 11:30 999 mls/hr .Q1H1M TOBY Administration Phenobarbital Sodium 290 mg 12/17/24 11:00 12/17/24 10:33 Phenobarbital Sodium 130 Mg/Ml Im Once IM 12/17/24 11:01 290 mg ONCE ONE Administration Protocol Phenobarbital Sodium 220 mg 12/17/24 14:00 12/17/24 18:10 Phenobarbital Sodium 130 Mg/Ml Vial Im Q3hx2 IM 12/17/24 17:01 220 mg Q3H TOBY Administration Protocol Medical Decision Making Medical Decision Making [facility] Narrative: The patient is a 54-year-old male who was seen at the hospital here yesterday for shortness of breath. He had a very negative workup. He had an alcohol of 268 yesterday. He ultimately chose to leave and took a taxi back to his apartment at the [facility] in [place]. The patient would very much like to get help with his alcohol problems and apparently [facility]. He returns to the emergency room today hoping he can get medically cleared and then into a [facility] facility for [facility] treatment. The patient's clinical appearance today seems benign although he is tachycardic. He was also tachycardic yesterday. We repeated much of the workup from yesterday. He has a normal white count, unremarkable CBC overall. He has a normal D-dimer ruling out a pulmonary embolism. He has a chest x-ray showing no acute findings. He has a normal BNP. Normal troponin. My overall impression is that the patient has no acute medical issue aside from his alcohol issues. He was started on the phenobarbital protocol. The care team was consulted because of the patient's hopes to get into the [facility] treatment program. The patient was seen by the care team. [facility]. he has been accepted in transfer and the [facility] should be arranging transport to the [facility] in [place]. I feel the patient is medically clear and appropriate for transfer to this facility for ongoing alcohol abuse treatment. Lab Data 12/17/24 05:30 12/17/24 05:29 Labs: Lab Results 12/17/24 12/17/24 12/17/24 Range/Units 05:28 05:29 05:30 WBC 7.4 (4.8-10.8) X10*3/uL RBC 4.67 (4.60-5.80) X10*6/uL Hgb 13.6 L (14.0-18.0) g/dl Hct 41.0 L (42.0-52.0) % MCV 87.8 (80.0-98.0) fL MCH 29.1 (27.0-33.0) pg MCHC 33.2 (31.0-36.0) g/dl RDW 16.5 H (11.0-16.0) % Plt Count 181 (160-400) X10*3/uL MPV 10.3 (9.4-12.4) fL Immature Gran % (Auto) 0.5 H (0.0-0.4) % Neut % (Auto) 81.6 H (45-73) % Lymph % (Auto) 10.1 L (20-40) % [place] % (Auto) 7.7 (2-11) % Eos % (Auto) 0.0 (0-4) % Baso % (Auto) 0.1 (0-2) % Lymph # (Auto) 0.8 L (1.2-4.9) X10*3/uL [place] # (Auto) 0.6 (0.1-1.2) X10*3/uL Eos # (Auto) 0.0 (0.0-0.4) X10*3/uL Baso # (Auto) 0.0 (0.0-0.2) X10*3/uL Abs Immat Gran (auto) 0.04 H (0.00-0.03) X10*3/uL Absolute Neuts (auto) 6.0 (2.0-8.3) x10*3/uL Absolute Nucleated RBC 0.000 (0.0-0.012) X10*3/uL Nucleated RBC % (auto) 0.0 (0.0-0.2) /100WBC PT 11.6 (10.9-12.4) SEC INR 1.0 (0.9-1.1) D-Dimer High Sensitivty < 150 NG/ML Sodium 137 (135-145) mmol/L Potassium 4.3 (3.3-5.1) mmol/L Chloride 107 (96-108) mmol/L Carbon Dioxide 15 L (22-29) mmol/L Anion Gap 19 (12-20) BUN 18 H (9-16) mg/dL Creatinine 0.77 (0.5-1.4) mg/dL Estim Creat Clear Calc 180.8 Estimated GFR > 60 Random Glucose 264 H (60-115) mg/dL Calcium 8.9 D (8.4-10.2) mg/dL Total Bilirubin 0.7 (0.0-1.0) mg/dL AST 33 (5-37) U/L ALT 28 (0-40) U/L Alkaline Phosphatase 89 (39-117) U/L Troponin I High Sens 12.8 (<3.5-35.0) ng/L B-Natriuretic Peptide 40 (<100) pg/mL Total Protein 8.5 H (6.5-8.0) g/dL Albumin 4.1 (3.5-5.0) g/dL Urine Opiates Screen (Not Detect) Ur Buprenorphine Scrn (Not Detect) ng/mL Ur Oxycodone Screen (Not Detect) ng/mL Urine Methadone Screen (Not Detect) ng/mL Urine Fentanyl Screen (Not Detect) Ur Barbiturates Screen (Not Detect) Ur Phencyclidine Scrn (Not Detect) Ur Amphetamines Screen (Not Detect) U Benzodiazepines Scrn (Not Detect) Urine Cocaine Screen (Not Detect) U Marijuana (THC) Screen (Not Detect) Ethyl Alcohol 126 mg/dL Influenza Type A (PCR) NEGATIVE (Negative) Influenza Type B (PCR) NEGATIVE (Negative) RSV RNA Qual (PCR) NEGATIVE (Negative) SARS-CoV-2 RNA (RT-PCR) NEGATIVE (Negative) 12/17/24 Range/Units 17:11 WBC (4.8-10.8) X10*3/uL RBC (4.60-5.80) X10*6/uL Hgb (14.0-18.0) g/dl Hct (42.0-52.0) % MCV (80.0-98.0) fL MCH (27.0-33.0) pg MCHC (31.0-36.0) g/dl RDW (11.0-16.0) % Plt Count (160-400) X10*3/uL MPV (9.4-12.4) fL Immature Gran % (Auto) (0.0-0.4) % Neut % (Auto) (45-73) % Lymph % (Auto) (20-40) % [place] % (Auto) (2-11) % Eos % (Auto) (0-4) % Baso % (Auto) (0-2) % Lymph # (Auto) (1.2-4.9) X10*3/uL [place] # (Auto) (0.1-1.2) X10*3/uL Eos # (Auto) (0.0-0.4) X10*3/uL Baso # (Auto) (0.0-0.2) X10*3/uL Abs Immat Gran (auto) (0.00-0.03) X10*3/uL Absolute Neuts (auto) (2.0-8.3) x10*3/uL Absolute Nucleated RBC (0.0-0.012) X10*3/uL Nucleated RBC % (auto) (0.0-0.2) /100WBC PT (10.9-12.4) SEC INR (0.9-1.1) D-Dimer High Sensitivty NG/ML Sodium (135-145) mmol/L Potassium (3.3-5.1) mmol/L Chloride (96-108) mmol/L Carbon Dioxide (22-29) mmol/L Anion Gap (12-20) BUN (9-16) mg/dL Creatinine (0.5-1.4) mg/dL Estim Creat Clear Calc Estimated GFR Random Glucose (60-115) mg/dL Calcium (8.4-10.2) mg/dL Total Bilirubin (0.0-1.0) mg/dL AST (5-37) U/L ALT (0-40) U/L Alkaline Phosphatase (39-117) U/L Troponin I High Sens (<3.5-35.0) ng/L B-Natriuretic Peptide (<100) pg/mL Total Protein (6.5-8.0) g/dL Albumin (3.5-5.0) g/dL Urine Opiates Screen Not Detected (Not Detect) Ur Buprenorphine Scrn Not Detected (Not Detect) ng/mL Ur Oxycodone Screen Not Detected (Not Detect) ng/mL Urine Methadone Screen Not Detected (Not Detect) ng/mL Urine Fentanyl Screen Not Detected (Not Detect) Ur Barbiturates Screen POSITIVE H (Not Detect) Ur Phencyclidine Scrn Not Detected (Not Detect) Ur Amphetamines Screen Not Detected (Not Detect) U Benzodiazepines Scrn Not Detected (Not Detect) Urine Cocaine Screen Not Detected (Not Detect) U Marijuana (THC) Screen Not Detected (Not Detect) Ethyl Alcohol mg/dL Influenza Type A (PCR) (Negative) Influenza Type B (PCR) (Negative) RSV RNA Qual (PCR) (Negative) SARS-CoV-2 RNA (RT-PCR) (Negative) Discharge Plan Discharge Clinical Impression: Alcoholism, Alcohol withdrawal Patient Disposition: Xfer Psychiatric Hosp Transfer Details: [facility] Prescriptions: No Action aspirin 81 mg Tablet,Chewable 81 mg PO DAILY Qty: 0 0RF escitalopram oxalate 10 mg Tablet 10 mg PO DAILY 30 Days Qty: 30 0RF atorvastatin 40 mg tablet 40 mg PO DAILY carvedilol 12.5 mg tablet 25 mg PO BID losartan 25 mg tablet 25 mg PO DAILY ibuprofen 600 mg tablet 400 mg PO Q6H PRN (Reason: Pain) dapagliflozin propanediol [Farxiga] 10 mg tablet 10 mg PO DAILY naltrexone 50 mg Tablet 50 mg PO DAILY 30 Days Qty: 30 0RF olanzapine 5 mg Tablet 2.5 mg PO BID PRN (Reason: agitation) Qty: 15 0RF potassium chloride 20 mEq Tablet,Er Particles/Crystals 20 meq PO DAILY 30 Days Qty: 30 0RF lidocaine 5 % Ointment 1 appl topical Q6H PRN (Reason: Pain, Moderate(Pain Scale 4-6)) 30 Days Qty: 50 1RF Protocol: Apply to: Apply to: lower back folic acid 0.8 mg capsule 0.8 mg PO DAILY Qty: 30 2RF thiamine mononitrate (vit B1) 100 mg Tablet 100 mg PO DAILY Qty: 30 1RF loperamide 2 mg Capsule 2 mg PO Q4H PRN (Reason: Loose Stool) Qty: 30 0RF furosemide 40 mg tablet 40 mg PO DAILY PRN (Reason: Edema) 30 Days Qty: 30 0RF metformin 500 mg tablet 500 mg PO BID 30 Days Qty: 60 0RF omeprazole 20 mg capsule,delayed release(DR/EC) 40 mg PO DAILY Qty: 30 0RF Print Language: Bengali
[2024-12-17 09:22] LABS: Ethanol 126 mg/dL
[2024-12-17 09:55] LABS: D Dimer High Sensitivity < 150 NG/ML
[2024-12-17 10:14] LABS: B Type Natriuretic Peptide 40 pg/mL (<100)
[2024-12-17] MEDS: PHENobarbitaL sodium 130 MG/ML IM ONCE 290 MG IM (10:33)
[2024-12-17] MEDS: Lactated Ringers 1,000 ML 999 ML IV (10:41)
[2024-12-17] MEDS: PHENobarbitaL sodium 130 MG/ML VIAL IM Q3Hx2 220 MG IM ×2 (14:06→18:10)
--- NOTE | 2024-12-17 15:42 | MHC.RECOVRN ---
Call to [facility] in [place] [phone] ext [phone] and spoke with Nicole who reports they received the referral but were missing pages 1-11. Pages re sent. Nicole reports they will review with their provider at 4PM and F/U. Care team and ACS team updated.
[2024-12-17 17:30] LABS: Amphetamine Screen Urine Not Detected (Not Detect); Barbiturates, Urine POSITIVE (Not Detect); Benzodiazepines Screen Urine Not Detected (Not Detect); Buprenorphine Scr Not Detected (Not Detect); Cannabinoid Screen Urine Not Detected (Not Detect); Cocaine Screen Urine Not Detected (Not Detect); Fentanyl, urine Not Detected (Not Detect); Methadone Screen, Urine Not Detected (Not Detect); Opiate Screen Urine Not Detected (Not Detect); Oxycodone Screen Urine Not Detected (Not Detect); Phencyclidine Screen Urine Not Detected (Not Detect)
[2024-12-17 19:42] LABS: C Reactive Protein 0.44 mg/dL (< or = 0.50)
--- NOTE | 2024-12-17 19:50 | PM.IMHP ---
History of Present Illness Date of Service: 12/17/24 Attending physician on admission: Ted Mcqueen Chief Complaint: Alcohol withdrawal Patient is a 54-year-old morbidly obese (BMI 55.5 kg/m2) male with history of alcoholism, CHF, TERRIE on CPAP, depression and PTSD and who currently lives at the [facility] in [place] returns to the emergency room today complaining of chest pain and shortness of breath and also requesting alcohol detox. He is an alcoholic who admits to indulging in binge drinking behaviour. He presented to the emergency room yesterday via EMS and on CPAP complaining of chest pain and shortness of breath plus was tachycardic. His work up was negative for ACS but he was found with an elevated serum alcohol level at 268. He ultimately felt better and so requested discharge. Today, [facility] and was accepted but then just before the ambulance picked him up, lab reported a positive blood culture from blood drawn yesterday and so the transfer was cancelled pending further work up of this unexpected result. He has been afebrile during his emergency room stay and blood work done shows no leukocytosis. He however remains tachycardic with hear rates persistently in the 120's. He continues to have left sided non-radiating chest pain that is however reproducible. Review of Systems Review of Systems: Yes all other systems are reviewed and are negative [facility] Medical History TERRIE on CPAP Morbid obesity Acute gastritis with bleeding Systolic heart failure Alcohol use disorder, severe, dependence Herniated disc Arthritis PTSD (post-traumatic stress disorder) Depression Anxiety Obesity Sleep apnea Hypertension Diabetes mellitus, type 2 Functional capacity: independent ambulation Family History Mother Diabetes Social History Household Members: None Housing: Apartment Do you presently have visiting nurse or other home services: No Alcohol intake: current Alcohol intake frequency: holidays/special occasions only Alcohol type: beer Patient Tobacco Use Status: Never used Tobacco Smoked in Last 30 Days: No e-Cigarette/Vaping Use: Never Used Second Hand Smoke Exposure: No Use of substances other than those prescribed or required for medical reasons: No Substance Use Type: Marijuana and Prescription Drugs Have you been hit, kicked, punched, or otherwise hurt by someone within the past year? If so, by whom?: No Do you feel safe in your current relationship?: No Current Relationship Is there a partner from a previous relationship who is making you feel unsafe now?: No Are you made to feel afraid or neglected: No Advance Directives: No Advance Directives Information Provided: Yes Advance Directives on File: No Do you have a plan to hurt others: No Plan Recently lost weight without trying: No How much weight loss: Not applicable Eating poorly because of decreased appetite: No Nutrition screen score: 0 service: Yes ([employer] [id number] honorable discharge) Current occupational status: employed Sexual orientation: Don't Know Meds Allergies Allergy/AdvReac Type Severity Reaction Status Date / Time No Known Allergies Allergy Verified 12/17/24 05:20 Home Medications ?Medication ?Instructions ?Recorded ?Confirmed ?Last Taken ?Type atorvastatin 40 mg tablet 40 mg PO DAILY 07/24/23 12/17/24 Unknown History carvedilol 12.5 mg tablet 25 mg PO BID 07/24/23 03/06/24 Unknown History dapagliflozin propanediol 10 mg 10 mg PO DAILY 07/24/23 03/06/24 Unknown History tablet (Farxiga) ibuprofen 600 mg tablet 400 mg PO Q6H PRN Pain 07/24/23 03/06/24 Unknown History losartan 25 mg tablet 25 mg PO DAILY 07/24/23 03/06/24 Unknown History omeprazole 20 mg capsule,delayed 40 mg PO DAILY@0630 12/17/24 12/17/24 Unknown History release Physical Exam Vital Signs and Narrative: Vital Signs: Last Vital Signs Temp 97.6 F 12/17/24 19:17 Pulse 120 H 12/17/24 19:17 Resp 21 H 12/17/24 19:17 BP 140/91 H 12/17/24 19:17 Pulse Ox 97 12/17/24 19:17 O2 Del Method Room Air 12/17/24 19:17 BMI result Body Mass Index 55.5 General: Morbidly obese. Awake and alert. In no obvious respiratory distress. Psychiatric: Pleasant, well kempt, cooperative with normal thought process, speech, cognition and affect. HEENT: Normocephalic, atraumatic. No pallor or jaundice. Moist oral mucus membranes. No oropharyngeal congestion Neck: Supple. No JVD. No cervical lymphadenopathy Lungs: Normal respiratory effort. Able to speak in complete sentences. Clear to auscultation bilaterally. No rales, rhonchi or wheezes Heart: RRR. Normal s1/s2. No murmurs, rubs or gallops. No peripheral edema. Abdomen: Obese ++. Soft & non-tender. Normoactive bowel sounds in all 4 quadrants. No visceromegaly. Genitourinary: Deferred Back/Spine/Pelvis: Deferred Skin: Warm, dry, well perfused. Normal turgor. No rashes or lesions. No bruises or ecchymosis. No mottling. Normal capillary refill (< 2 seconds). Neurologic: Awake and alert. Oriented x4. Intact speech & cognition. Normal gait & balance. CN II-XII intact bilaterally. Extremities: Normal muscle bulk, tone and power bilaterally in both upper and lower extremities. No obvious deformities. No peripheral edema. Good peripheral pulses. Results Labs 12/17/24 05:30 12/17/24 05:29 Labs: Laboratory Results - last 24 hr 12/17/24 12/17/24 12/17/24 05:28 05:29 05:30 MCV 87.8 MCH 29.1 MCHC 33.2 RDW 16.5 H Plt Count 181 MPV 10.3 Immature Gran % (Auto) 0.5 H Neut % (Auto) 81.6 H Lymph % (Auto) 10.1 L [place] % (Auto) 7.7 Eos % (Auto) 0.0 Baso % (Auto) 0.1 Lymph # (Auto) 0.8 L [place] # (Auto) 0.6 Eos # (Auto) 0.0 Baso # (Auto) 0.0 Abs Immat Gran (auto) 0.04 H Absolute Neuts (auto) 6.0 Absolute Nucleated RBC 0.000 Nucleated RBC % (auto) 0.0 PT 11.6 INR 1.0 D-Dimer High Sensitivty < 150 Anion Gap 19 Estim Creat Clear Calc 180.8 Estimated GFR > 60 Random Glucose 264 H Calcium 8.9 D Total Bilirubin 0.7 AST 33 ALT 28 Alkaline Phosphatase 89 Troponin I High Sens 12.8 C-Reactive Protein 0.44 B-Natriuretic Peptide 40 Total Protein 8.5 H Albumin 4.1 Urine Opiates Screen Ur Buprenorphine Scrn Ur Oxycodone Screen Urine Methadone Screen Urine Fentanyl Screen Ur Barbiturates Screen Ur Phencyclidine Scrn Ur Amphetamines Screen U Benzodiazepines Scrn Urine Cocaine Screen U Marijuana (THC) Screen Ethyl Alcohol 126 Influenza Type A (PCR) NEGATIVE Influenza Type B (PCR) NEGATIVE RSV RNA Qual (PCR) NEGATIVE SARS-CoV-2 RNA (RT-PCR) NEGATIVE 12/17/24 17:11 MCV MCH MCHC RDW Plt Count MPV Immature Gran % (Auto) Neut % (Auto) Lymph % (Auto) [place] % (Auto) Eos % (Auto) Baso % (Auto) Lymph # (Auto) [place] # (Auto) Eos # (Auto) Baso # (Auto) Abs Immat Gran (auto) Absolute Neuts (auto) Absolute Nucleated RBC Nucleated RBC % (auto) PT INR D-Dimer High Sensitivty Anion Gap Estim Creat Clear Calc Estimated GFR Random Glucose Calcium Total Bilirubin AST ALT Alkaline Phosphatase Troponin I High Sens C-Reactive Protein B-Natriuretic Peptide Total Protein Albumin Urine Opiates Screen Not Detected Ur Buprenorphine Scrn Not Detected Ur Oxycodone Screen Not Detected Urine Methadone Screen Not Detected Urine Fentanyl Screen Not Detected Ur Barbiturates Screen POSITIVE H Ur Phencyclidine Scrn Not Detected Ur Amphetamines Screen Not Detected U Benzodiazepines Scrn Not Detected Urine Cocaine Screen Not Detected U Marijuana (THC) Screen Not Detected Ethyl Alcohol Influenza Type A (PCR) Influenza Type B (PCR) RSV RNA Qual (PCR) SARS-CoV-2 RNA (RT-PCR) Assessment and Plan (1) Alcohol withdrawal: Qualifiers: Complication of substance-induced condition: uncomplicated Qualified Code(s): F10.930 - Alcohol use, unspecified with withdrawal, uncomplicated Status: Acute (2) Chest pain: Qualifiers: Chest pain type: precordial pain Qualified Code(s): R07.2 - Precordial pain Status: Acute (3) Tachycardia: Status: Acute (4) Morbid obesity: Status: Acute (5) CHF (congestive heart failure): Qualifiers: Heart failure type: unspecified Heart failure chronicity: chronic Qualified Code(s): I50.9 - Heart failure, unspecified Status: Acute Plan Patient is a 54-year-old morbidly obese (BMI 55.5 kg/m2) male with history of alcoholism, CHF, TERRIE on CPAP, depression and PTSD here with: 1. Alcohol withdrawal - he admits to drinking heavily with his last drink being 3 days ago - he is currently persistently tachycardic raising concern for possible early withdrawal - he was started on Phenobarbital which I will continue - also start on a multivitamin, thiamine and folic acid - plan for discharge to [facility] if final blood culture results are not indicative of an infection 2. Chest pain - reproducible and atypical for ACS - likely ANOOP chest pain - continue PRN analgesics - no further cardiac work up indicated 3. Positive blood culture result - gram stain from a blood culture bottle drawn yesterday grew gram-positive cocci in clusters. - he has not had any fevers and his WBC count is normal - likely contaminant with very low concerns for bacteremia at this point - await final speciation and sensitivity results - will hold off antibiotics for now 4. Tachycardia - he remains persistently tachycardic - however with normal d-dimer ruling out PE - differential diagnosis to include a complication of OHS versus alcohol withdrawal - continue to monitor 5. Morbid Obesity - with a BMI of 55.5 kg/m2 - encourage weight loss 6. Obstructive sleep apnea - further complicated by obesity hypoventilation syndrome - encouraged weight loss 7. History of congestive heart failure - unclear whether systolic or diastolic - resume Lasix - check 2D echo 8. Essential hypertension - BP well controlled - resume Losartan and Carvedilol 9. Hyperlipidemia - resume atorvastatin - check lipid panel in the morning 10. Type 2 diabetes mellitus - resume metformin and Farxiga Total time managing care of this patient today: 75 minutes. Quality Stroke Does the patient have a stroke diagnosis?: No VTE Prior VTE?: No VTE Risk Level:: Medical - moderate - high VTE Device Contraindication: N/A - Device Ordered VTE Drug Contraindication: N/A - Med Ordered
--- NOTE | 2024-12-17 22:25 | PHA.MEDREC ---
Addendum entered by Adina Alcantar RPh 12/18/24 10:45: Med rec reviewed and updated. [facility] and [facility]. Contacted [facility] and they were able to confirm that patient had not filled with them since 10/09/24. Double checked PDMP to see if patient was filling controlled substances anywhere other than [facility] or [facility] and found no other pharmacies. Used pharmacy claims to confirm dosing on meds patient was able to confirm and removed other medications from home med list. Original Note: Pharmacy Consult ? Medication Reconciliation Pharmacy has completed the medication reconciliation. Spoke with patient and he stated he does not know what he is suppose to be really taking due to being in and out of different facilities the last few months and the places kept changing around his medications. He was able to confirm the Aspirin, Atorvastatin, Escitalopram, Folic Acid, Metformin, Omeprazole but did not know any of the dosages or how he was taking any of these, but stated he was getting these filled from [facility] recently. In our claims the last time the patient has filled at [facility] was October 09, 2024; I brought this up to the patient and he stated again that he was getting stuff there recently. He states he was filling at [facility] [address] but they were close so I called [facility] on [facility] in [place] which is a pharmacy and they looked at the patients profile and stated he has not filled with [facility] in over a year. [facility] since [facility] it but does not fill anything there and they were not able to help us at this time since they needed verbal consent from the patient but he was asleep already but the time we got ahold of the [facility]. Will have Am pharmacy team follow up tomorrow and find out where and what the patient is filling and taking.
[2024-12-17] MEDS: Dextrose 5 % and 0.9 % NaCl 1,000 ML 125 ML IVCONT (22:57)
[2024-12-17] MEDS: Enoxaparin Sodium 40 MG/0.4 ML SYRINGE SUBCUT (23:11)
[2024-12-17] MEDS: Acetaminophen 325 MG TABLET 650 MG PO (23:11)
[2024-12-17] MEDS: 0.9 % Sodium Chloride Flush 3 ML SYRINGE IVFLUSH (23:12)
--- NOTE | 2024-12-18 | ECG_ITS ---
Test Reason : chest pian Blood Pressure : */* mmHG Vent. Rate : 100 BPM Atrial Rate : 100 BPM P-R Int : 166 ms QRS Dur : 102 ms QT Int : 400 ms P-R-T Axes : 44 -70 10 degrees QTcB Int : 516 ms Normal sinus rhythm Left axis deviation Anterior infarct (cited on or before 28-Sep-2022) Prolonged QT Abnormal ECG When compared with ECG of 17-Dec-2024 07:56, Premature supraventricular complexes are no longer Present Questionable change in initial forces of Septal leads Nonspecific T wave abnormality, improved in Anterior leads Referred By: Isi Cobb Electronically Signed By: Daniel Major
[2024-12-18 03:58] VITALS: BP 133/80; PULSE 100; RESP 17; TEMP 36.6; O2SAT 93
[2024-12-18] MEDS: Omeprazole 20 MG CAPSULE.DR PO (06:58)
[2024-12-18] MEDS: Multivitamin TABLET 1 TAB PO (07:40)
[2024-12-18] MEDS: Enoxaparin Sodium 40 MG/0.4 ML SYRINGE SUBCUT ×2 (07:41→20:55)
[2024-12-18] MEDS: Folic Acid 1 MG TABLET PO (07:41)
[2024-12-18] MEDS: PHENobarbitaL 15 MG TABLET 45 MG PO ×2 (07:41→20:54)
[2024-12-18] MEDS: Thiamine HCL 100 MG TABLET PO (07:41)
[2024-12-18 07:42] VITALS: BP 130/92; PULSE 98; RESP 20; TEMP 36.2; O2SAT 98
[2024-12-18 08:07] LABS: Basophils Absolute Auto 0.1 X10*3/uL (0.0-0.2); Basophils Percent Auto 0.6 % (0-2); Eosinophils Absolute Auto 0.1 X10*3/uL (0.0-0.4); Eosinophils Percent Auto 0.6 % (0-4); Hematocrit 41.5 % (42.0-52.0); Hemoglobin 13.9 g/dl (14.0-18.0); Imm Gran Abs Auto 0.09 X10*3/uL (0.00-0.03); Imm Gran Pct Auto 1.1 % (0.0-0.4); Lymphocytes Absolute Auto 2.2 X10*3/uL (1.2-4.9); MANUAL DIFF FLAG SCAN; Mean Corpuscular HGB Conc 33.5 g/dl (31.0-36.0); Mean Corpuscular Hemoglobin 29.2 pg (27.0-33.0); Mean Corpuscular Volume 87.2 fL (80.0-98.0); Monocytes Absolute Auto 0.6 X10*3/uL (0.1-1.2); Monocytes Percent Auto 7.4 % (2-11); Neutrophils Absolute Auto 4.9 x10*3/uL (2.0-8.3); Neutrophils Percent Auto 62.3 % (45-73); PLT CLUMP 1; Red Blood Count 4.76 X10*6/uL (4.60-5.80); Red Cell Distribution Width 16.4 % (11.0-16.0); SCAN SMEAR FLAG 1
[2024-12-18 08:21] LABS: White Blood Count 7.9 X10*3/uL (4.8-10.8)
[2024-12-18 08:27] LABS: Alanine Aminotransferase 26 U/L (0-40); Albumin Level 3.6 g/dL (3.5-5.0); Alkaline Phosphatase 74 U/L (39-117); Anion Gap 17 (12-20); Aspartate Amino Transferase 45 U/L (5-37); Bilirubin Total 1.3 mg/dL (0.0-1.0); Blood Urea Nitrogen 15 mg/dL (9-16); Carbon Dioxide 18 mmol/L (22-29); Chloride 106 mmol/L (96-108); Creatinine Clr Calc Pharmacy 207.8; Estimated Glomerular Filt Rate > 60; Glucose Random 155 mg/dL (60-115); Magnesium 2.1 mg/dL (1.6-2.6); Potassium 4.6 mmol/L (3.3-5.1); Sodium 136 mmol/L (135-145); Total Protein 7.7 g/dL (6.5-8.0)
[2024-12-18 08:48] LABS: Mean Platelet Volume 11.4 fL (9.4-12.4); Platelet Count 149 X10*3/uL (160-400); SLIDE REVIEW VERIFIED
[2024-12-18 08:55] LABS: Calcium 8.3 mg/dL (8.4-10.2)
--- NOTE | 2024-12-18 10:52 | HO.PM.IMPN ---
Subjective Subjective Date of Service: 12/18/24 Interval History: feels well, no fever or chills, no cough, no abd pain, no tremors BCx with coag-neg staph, so contaminated Review of Systems Review of Systems: Yes all other systems are reviewed and are negative Physical Exam Vital Signs: Vital Signs: Last Vital Signs Temp 97.1 F 12/18/24 07:42 Pulse 98 12/18/24 07:42 Resp 20 12/18/24 07:42 BP 130/92 H 12/18/24 07:42 Pulse Ox 98 12/18/24 07:42 O2 Del Method Room Air 12/18/24 07:42 BMI result Body Mass Index 55.5 Gen: in no acute distress HEENT: sclera anicteric, moist mucus membranes Neck: supple Lungs: clear to auscultation bilaterally Heart: regular rate and rhythm, no murmurs Abd: soft, non-tender, non-distended, obese Ext: no edema Skin: warm/well-perfused Neuro: alert and oriented x3, no focal findings Psych: appropriate affect Objective Data Active Medications Acetaminophen (Acetaminophen 325 Mg Tablet) 650 mg PO Q6H PRN PRN Reason: Pain, Mild 1-3,fever,headache Last Admin: 12/17/24 23:11 Dose: 650 mg Documented By: CONSUELO Aspirin (Aspirin 81 Mg Tab.Chew) 81 mg PO DAILY [facility] Atorvastatin Calcium (Atorvastatin Calcium 40 Mg Tablet) 40 mg PO DAILY [facility] Calcium Carbonate (Calcium Carbonate 750 Mg Tab.Chew) 750 mg PO Q4H PRN PRN Reason: Heartburn Carvedilol (Carvedilol 25 Mg Tablet) 25 mg PO BID [facility]; Protocol Enoxaparin Sodium (Enoxaparin Sodium 40 Mg/0.4 Ml Syringe) 40 mg SUBCUT Q12H [facility] Last Admin: 12/18/24 07:41 Dose: 40 mg Documented By: LING Escitalopram Oxalate (Escitalopram Oxalate 10 Mg Tablet) 10 mg PO DAILY [facility] Folic Acid (Folic Acid 1 Mg Tablet) 1 mg PO DAILY [facility] Stop: 12/21/24 08:59 Last Admin: 12/18/24 07:41 Dose: 1 mg Documented By: LING Haloperidol Lactate (Haloperidol Lactate 5 Mg/Ml Vial) 2 mg IVPUSH Q1H PRN PRN Reason: anxiety/restlessness Magnesium Hydroxide (Milk Of Magnesia 30 Ml Oral.Susp) 30 ml PO DAILY PRN PRN Reason: Constipation Melatonin (Melatonin 3 Mg Tablet) 6 mg PO BEDTIME PRN PRN Reason: Insomnia Metformin HCl (Metformin Hcl 1,000 Mg Tablet) 1,000 mg PO BID [facility] Multivitamins/Vitamin C (Multivitamin Tablet) 1 tab PO DAILY [facility] Stop: 12/21/24 08:59 Last Admin: 12/18/24 07:40 Dose: 1 tab Documented By: LING Omeprazole (Omeprazole 20 Mg Capsule.Dr) 20 mg PO DAILY@0630 [facility] Last Admin: 12/18/24 06:58 Dose: 20 mg Documented By: CONSUELO Ondansetron HCl (Ondansetron Hcl 4 Mg/2 Ml Vial) 4 mg IVPUSH Q8H PRN PRN Reason: Nausea and Vomiting Pharmacy Consult (Consult Rx Etoh Phenob Im/Po) 1 each MISCELLANE ONCE PRN; Protocol PRN Reason: Consult order Phenobarbital (Phenobarbital 15 Mg Tablet) 45 mg PO BID [facility]; Protocol Stop: 12/19/24 21:01 Last Admin: 12/18/24 07:41 Dose: 45 mg Documented By: LING Phenobarbital (Phenobarbital 30 Mg Tablet) 30 mg PO BID [facility]; Protocol Stop: 12/21/24 21:01 Phenobarbital (Phenobarbital 30 Mg Tablet) 30 mg PO DAILY [facility]; Protocol Stop: 12/23/24 09:01 Senna (Sennosides 8.6 Mg Tablet) 17.2 mg PO BEDTIME [facility] Last Admin: 12/17/24 23:12 Dose: Not Given Documented By: CONSUELO Non-Admin Reason: Patient Refused Sodium Chloride (0.9 % Sodium Chloride Flush 3 Ml Syringe) 3 ml IVFLUSH QSHIFT [facility] Last Admin: 12/17/24 23:12 Dose: 3 ml Documented By: CONSUELO Thiamine HCl (Thiamine Hcl 100 Mg Tablet) 100 mg PO DAILY [facility] Stop: 12/21/24 08:59 Last Admin: 12/18/24 07:41 Dose: 100 mg Documented By: LING Labs 12/18/24 07:12 12/18/24 07:12 Labs: Laboratory Results - last 24 hr 12/17/24 12/17/24 12/18/24 05:29 17:11 07:12 MCV 87.2 MCH 29.2 MCHC 33.5 RDW 16.4 H Plt Count 149 L MPV 11.4 Immature Gran % (Auto) 1.1 H Neut % (Auto) 62.3 Lymph % (Auto) 28.0 [place] % (Auto) 7.4 Eos % (Auto) 0.6 Baso % (Auto) 0.6 Lymph # (Auto) 2.2 [place] # (Auto) 0.6 Eos # (Auto) 0.1 Baso # (Auto) 0.1 Abs Immat Gran (auto) 0.09 H Absolute Neuts (auto) 4.9 Absolute Nucleated RBC 0.000 Nucleated RBC % (auto) 0.0 Smear Tech's Comments VERIFIED Anion Gap 17 Estim Creat Clear Calc 207.8 Estimated GFR > 60 Random Glucose 155 H Calcium 8.3 L D Magnesium 2.1 Total Bilirubin 1.3 H AST 45 H ALT 26 Alkaline Phosphatase 74 C-Reactive Protein 0.44 Total Protein 7.7 Albumin 3.6 Urine Opiates Screen Not Detected Ur Buprenorphine Scrn Not Detected Ur Oxycodone Screen Not Detected Urine Methadone Screen Not Detected Urine Fentanyl Screen Not Detected Ur Barbiturates Screen POSITIVE H Ur Phencyclidine Scrn Not Detected Ur Amphetamines Screen Not Detected U Benzodiazepines Scrn Not Detected Urine Cocaine Screen Not Detected U Marijuana (THC) Screen Not Detected Assessment and Plan (1) Alcohol withdrawal: Status: Acute Plan d2 for 54yo M with AUD, CHF, TERRIE on CPAP, depression, PTSD, morbid obesity admitted with alcohol withdrawal AUD with withdrawal syndrome - phenobarbital taper - multivitamin, thiamine, folic acid - awaiting detox bed at [facility]; positive blood culture was a contaminant [facility] chest pain - prn APAP TERRIE - CPAP HTN - carvedilol HLD - atorvastatin DM2 - MTF morbid obesity - diet/exercise counseling VTE ppx - enoxaparin dispo - awaiting dispo to detox at [facility] Total time managing care of this patient today: 35 minutes. Quality Stroke Does the patient have a stroke diagnosis?: No VTE Prior VTE?: No VTE Risk Level:: Medical - moderate - high VTE Device Contraindication: N/A - Device Ordered VTE Drug Contraindication: N/A - Med Ordered
[2024-12-18 11:46] VITALS: BP 144/97; PULSE 105; RESP 20; TEMP 36.6; O2SAT 95
[2024-12-18] MEDS: carvediloL 25 MG TABLET PO ×2 (12:29→20:53)
[2024-12-18] MEDS: 0.9 % Sodium Chloride Flush 3 ML SYRINGE IVFLUSH ×3 (12:29→20:58)
--- NOTE | 2024-12-18 13:03 | MHC.RECOVRN ---
AUDIT-C Brief Intervention Pt had positive screen for unhealthy alcohol use on admission, subsequently met with t/w to discuss alcohol use and recovery supports/options. This blog writer met with patient to discuss current alcohol use and concerns related to increased risk of alcohol related problems.? Pt reports alcohol use on Monday12/15/24, 3-4 vodka drinks. Pt reports prior to Monday last drink was a few days before. Discussed how alcohol use has impacted health, including negative impact on [BH/medical dx]. Withdrawal History: denies hx withdrawal seizures Treatment History: pt reports 10+ ATS admissions, several years of rehab, most recently [facility] to [place] for 42 days, released 1.5 weeks ago Supports:? brothers from my [employer]ab[employer], mom Discussed risk reduction strategies including drinking below the recommended limit. Provided pt with written resources including information on inpatient and outpatient treatment, LISS, harm reduction, and recovery coaching. Pt [facility]. Pt provided with t/w contact information if questions or concerns arise. Denies other questions or concerns at this time.?
--- NOTE | 2024-12-18 13:10 | MHC.RECOVRN ---
Addendum entered by Elda Wade 12/18/24 15:58: T/w will fax information when MSU is completed. Original Note: Spoke with Shelia at the [facility] ([phone] ext [phone]) who informed t/w updated clinical information as well as a MSU needs to be faxed to [phone]. Provider and CARE Team aware.
[2024-12-18] MEDS: Haloperidol Lactate 5 MG/ML VIAL 2 MG IVPUSH (13:15)
--- NOTE | 2024-12-18 13:20 | MHC.RECOVRN ---
AUDIT-C Brief Intervention Pt had positive screen for unhealthy alcohol use on admission, subsequently met with t/w to discuss alcohol use and recovery supports/options. This business writer met with patient to discuss current alcohol use and concerns related to increased risk of alcohol related problems.? Pt reports alcohol use on Monday12/15/24, 3-4 vodka drinks. Pt reports prior to Monday last drink was a few days before. Discussed how alcohol use has impacted health, including negative impact on mental health and overall physical wellbeing. Withdrawal History: denies hx withdrawal seizures Treatment History: pt reports 10+ ATS admissions, several years of rehab, most recently [facility] to [place] for 42 days, released 1.5 weeks ago Supports:? brothers from my church, mom Discussed risk reduction strategies including drinking below the recommended limit. Provided pt with written resources including information on inpatient and outpatient treatment, LISS, harm reduction, and recovery coaching. Pt [facility]. Pt provided with t/w contact information if questions or concerns arise. Denies other questions or concerns at this time.?
[2024-12-18] MEDS: LORazepam 0.5 MG TABLET PO (13:47)
[2024-12-18 13:57] LABS: Troponin-I High Sensitivity 14.7 ng/L (<3.5-35.0)
--- NOTE | 2024-12-18 14:31 | MHC.CM.PN ---
IMM 12/18/24, Pt [place] in [address] in [place]. He does not have a PCP, brochure given. He does not have home health services. For DME, he uses a walker. Transport home at [place] is via [facility] shuttle. DCP is to go to a detox program at the [facility]. CM will follow for DC needs.
[2024-12-18 15:12] VITALS: BP 110/56; PULSE 83; RESP 20; TEMP 36.3; O2SAT 93
[2024-12-18 19:56] VITALS: BP 123/66; PULSE 95; RESP 16; TEMP 36.3; O2SAT 97
[2024-12-18] MEDS: metFORMIN HCl 1,000 MG TABLET 1000 MG PO (20:53)
[2024-12-18 23:13] VITALS: BP 116/69; PULSE 91; RESP 18; TEMP 36.4; O2SAT 95
[2024-12-19 04:00] VITALS: BP 108/59; PULSE 94; RESP 17; TEMP 36.4; O2SAT 93
[2024-12-19] MEDS: Omeprazole 20 MG CAPSULE.DR PO (06:14)
[2024-12-19 08:00] VITALS: BP 140/97; PULSE 97; RESP 18; TEMP 36.3; O2SAT 96
[2024-12-19] MEDS: metFORMIN HCl 1,000 MG TABLET 1000 MG PO (08:16)
[2024-12-19] MEDS: Aspirin 81 MG TAB.CHEW PO (08:16)
[2024-12-19] MEDS: carvediloL 25 MG TABLET PO (08:16)
[2024-12-19] MEDS: PHENobarbitaL 15 MG TABLET 45 MG PO (08:16)
[2024-12-19] MEDS: Folic Acid 1 MG TABLET PO (08:17)
[2024-12-19] MEDS: Multivitamin TABLET 1 TAB PO (08:17)
[2024-12-19] MEDS: Escitalopram Oxalate 10 MG TABLET PO (08:17)
[2024-12-19] MEDS: Enoxaparin Sodium 40 MG/0.4 ML SYRINGE SUBCUT (08:17)
[2024-12-19] MEDS: Atorvastatin Calcium 40 MG TABLET PO (08:17)
[2024-12-19] MEDS: 0.9 % Sodium Chloride Flush 3 ML SYRINGE IVFLUSH (08:17)
[2024-12-19] MEDS: Thiamine HCL 100 MG TABLET PO (08:17)
[2024-12-19] MEDS: Acetaminophen 325 MG TABLET 650 MG PO (08:19)
[2024-12-19] MEDS: Lidocaine 4 % Patch ADH..PATCH 2 PATCH TRANSDERMA (09:14)
--- NOTE | 2024-12-19 12:43 | MHC.CARE ---
CARE Team met with patient, he is no longer interested in [facility] detox. He scheduled an intake next week for a 6 week [facility] treatment program in [place] and can go from home. Provider Dr. Jordyn gilmore.
--- NOTE | 2024-12-19 13:20 | P.DS_ITS ---
DS: Providers Provider Date of Service: 12/19/24 Date of admission: 12/17/24 19:44 Date of discharge: 12/19/24 Primary care physician: Patrick Physician Consults: 12/17/24 10:17 Addiction Medicine Stat Consulting Provider: Sesar Covering Reason for consultation: Alcoholic [facility] 12/17/24 11:45 ED CARE Team Crisis Consult Stat Comment: Reason for consultation: alcoholism needs behav clearance for [facility] 12/19/24 10:42 Inpt CARE Team Crisis Consult Stat Comment: Reason for consultation: I spoke to her last the [facility] stated [facility]SU from the CARE DS: Diagnosis Discharge Diagnosis (1) Alcohol withdrawal: Status: Acute (2) Alcohol use disorder: Status: Acute (3) Morbid obesity: Status: Acute DS: Summary Hospital Course Hospital Course: From the history and physical by the admitting hospitalist, Ted Mcqueen MD, 12/17/24: Patient is a 54-year-old morbidly obese (BMI 55.5 kg/m2) male with history of alcoholism, CHF, TERRIE on CPAP, depression and PTSD and who currently lives at the [facility] facility in [place] returns to the emergency room today complaining of chest pain and shortness of breath and also requesting alcohol detox. He is an alcoholic who admits to indulging in binge drinking behaviour. He presented to the emergency room yesterday via EMS and on CPAP complaining of chest pain and shortness of breath plus was tachycardic. His work up was negative for ACS but he was found with an elevated serum alcohol level at 268. He ultimately felt better and so requested discharge. Today, [facility] and was accepted but then just before the ambulance picked him up, lab reported a positive blood culture from blood drawn yesterday and so the transfer was cancelled pending further work up of this unexpected result. He has been afe brile during his emergency room stay and blood work done shows no leukocytosis. He however remains tachycardic with hear rates persistently in the 120's. He continues to have left sided non-radiating chest pain that is however reproducible. 54yo M with AUD, CHF, TERRIE on CPAP, depression, PTSD, morbid obesity admitted with concerns of alcohol withdrawal as well as atypical/musculoskeletal chest p ain [ACS was ruled out]. Blood culture grew coagulase-negative staphylococcus, a contaminant. He was treated with phenobarbital taper as well as thiamine. Tachycardia resolved, as did chest pain. Ultimately, he was discharged home and is scheduled for an [facility] for [facility] in [place], [place]. Time Attestation Discharge Coordination Time (in mins): 35 Quality: Safe Use of Opioids Does Pt have an Active Cancer Diagnosis on the Problem List?: No Quality: Stroke Does the patient have a stroke diagnosis?: No Physical Exam Vital Signs: Vital Signs: Last Vital Signs Temp 97.4 F 12/19/24 08:00 Pulse 97 12/19/24 08:00 Resp 18 12/19/24 08:00 BP 140/97 H 12/19/24 08:00 Pulse Ox 96 12/19/24 08:00 O2 Del Method Room Air 12/19/24 08:00 BMI result Body Mass Index 55.5 Gen: in no acute distress HEENT: sclera anicteric, moist mucus membranes Neck: supple Lungs: clear to auscultation bilaterally Heart: regular rate and rhythm, no murmurs Abd: soft, non-tender, non-distended, obese Ext: no edema Skin: warm/well-perfused Neuro: alert and oriented x3, no focal findings Psych: appropriate affect DS: Data Data Completed and Pending Completed studies during hospitalization [Text1]: Laboratory Results WBC 7.9 X10*3/uL (4.8-10.8) 12/18/24 07:12 RBC 4.76 X10*6/uL (4.60-5.80) 12/18/24 07:12 Hgb 13.9 g/dl (14.0-18.0) L 12/18/24 07:12 Hct 41.5 % (42.0-52.0) L 12/18/24 07:12 MCV 87.2 fL (80.0-98.0) 12/18/24 07:12 MCH 29.2 pg (27.0-33.0) 12/18/24 07:12 MCHC 33.5 g/dl (31.0-36.0) 12/18/24 07:12 RDW 16.4 % (11.0-16.0) H 12/18/24 07:12 Plt Count 149 X10*3/uL (160-400) L 12/18/24 07:12 MPV 11.4 fL (9.4-12.4) 12/18/24 07:12 Immature Gran % (Auto) 1.1 % (0.0-0.4) H 12/18/24 07:12 Neut % (Auto) 62.3 % (45-73) 12/18/24 07:12 Lymph % (Auto) 28.0 % (20-40) 12/18/24 07:12 [place] % (Auto) 7.4 % (2-11) 12/18/24 07:12 Eos % (Auto) 0.6 % (0-4) 12/18/24 07:12 Baso % (Auto) 0.6 % (0-2) 12/18/24 07:12 Lymph # (Auto) 2.2 X10*3/uL (1.2-4.9) 12/18/24 07:12 [place] # (Auto) 0.6 X10*3/uL (0.1-1.2) 12/18/24 07:12 Eos # (Auto) 0.1 X10*3/uL (0.0-0.4) 12/18/24 07:12 Baso # (Auto) 0.1 X10*3/uL (0.0-0.2) 12/18/24 07:12 Abs Immat Gran (auto) 0.09 X10*3/uL (0.00-0.03) H 12/18/24 07:12 Absolute Neuts (auto) 4.9 x10*3/uL (2.0-8.3) 12/18/24 07:12 Absolute Nucleated RBC 0.000 X10*3/uL (0.0-0.012) 12/18/24 07:12 Nucleated RBC % (auto) 0.0 /100WBC (0.0-0.2) 12/18/24 07:12 Smear Tech's Comments VERIFIED 12/18/24 07:12 PT 11.6 SEC (10.9-12.4) 12/17/24 05:28 INR 1.0 (0.9-1.1) 12/17/24 05:28 D-Dimer High Sensitivty < 150 NG/ML 12/17/24 05:29 Sodium 136 mmol/L (135-145) 12/18/24 07:12 Potassium 4.6 mmol/L (3.3-5.1) 12/18/24 07:12 Chloride 106 mmol/L (96-108) 12/18/24 07:12 Carbon Dioxide 18 mmol/L (22-29) L 12/18/24 07:12 Anion Gap 17 (12-20) 12/18/24 07:12 BUN 15 mg/dL (9-16) 12/18/24 07:12 Creatinine 0.67 mg/dL (0.5-1.4) 12/18/24 07:12 Estim Creat Clear Calc 207.8 12/18/24 07:12 Estimated GFR > 60 12/18/24 07:12 Random Glucose 155 mg/dL (60-115) H 12/18/24 07:12 Calcium 8.3 mg/dL (8.4-10.2) L D 12/18/24 07:12 Magnesium 2.1 mg/dL (1.6-2.6) 12/18/24 07:12 Total Bilirubin 1.3 mg/dL (0.0-1.0) H 12/18/24 07:12 AST 45 U/L (5-37) H 12/18/24 07:12 ALT 26 U/L (0-40) 12/18/24 07:12 Alkaline Phosphatase 74 U/L (39-117) 12/18/24 07:12 Troponin I High Sens 14.7 ng/L (<3.5-35.0) 12/18/24 13:22 C-Reactive Protein 0.44 mg/dL (< or = 0.50) 12/17/24 05:29 B-Natriuretic Peptide 40 pg/mL (<100) 12/17/24 05:29 Total Protein 7.7 g/dL (6.5-8.0) 12/18/24 07:12 Albumin 3.6 g/dL (3.5-5.0) 12/18/24 07:12 Urine Opiates Screen Not Detected (Not Detect) 12/17/24 17:11 Ur Buprenorphine Scrn Not Detected ng/mL (Not Detect) 12/17/24 17:11 Ur Oxycodone Screen Not Detected ng/mL (Not Detect) 12/17/24 17:11 Urine Methadone Screen Not Detected ng/mL (Not Detect) 12/17/24 17:11 Urine Fentanyl Screen Not Detected (Not Detect) 12/17/24 17:11 Ur Barbiturates Screen POSITIVE (Not Detect) H 12/17/24 17:11 Ur Phencyclidine Scrn Not Detected (Not Detect) 12/17/24 17:11 Ur Amphetamines Screen Not Detected (Not Detect) 12/17/24 17:11 U Benzodiazepines Scrn Not Detected (Not Detect) 12/17/24 17:11 Urine Cocaine Screen Not Detected (Not Detect) 12/17/24 17:11 U Marijuana (THC) Screen Not Detected (Not Detect) 12/17/24 17:11 Ethyl Alcohol 126 mg/dL 12/17/24 05:29 Influenza Type A (PCR) NEGATIVE (Negative) 12/17/24 05:29 Influenza Type B (PCR) NEGATIVE (Negative) 12/17/24 05:29 RSV RNA Qual (PCR) NEGATIVE (Negative) 12/17/24 05:29 SARS-CoV-2 RNA (RT-PCR) NEGATIVE (Negative) 12/17/24 05:29 Discharge Plan Discharge Anticipated Discharge Date/Time: 12/19/24 13:14 Patient Disposition: Home, Self-Care Discharge Diagnosis: alcohol use disorder alcohol withdrawal Referrals: Physician,None [Primary Care Provider] - 1 Week Discharge Medications: New thiamine mononitrate (vit B1) 100 mg Tablet 100 mg PO DAILY Qty: 30 0RF Continued aspirin 81 mg Tablet,Chewable 81 mg PO DAILY Qty: 0 0RF escitalopram oxalate 10 mg Tablet 10 mg PO DAILY 30 Days Qty: 30 0RF atorvastatin 40 mg tablet 40 mg PO DAILY dapagliflozin propanediol [Farxiga] 10 mg tablet 10 mg PO DAILY folic acid 0.8 mg capsule 0.8 mg PO DAILY Qty: 30 2RF omeprazole 20 mg capsule,delayed release(DR/EC) 40 mg PO DAILY@0630 carvedilol 25 mg tablet 25 mg PO BID metformin 500 mg tablet 1,000 mg PO BID Discharge Orders: Discharge Order (Routine); Ordered 12/19/24 Ordered By: Isi Cobb Diet: Advance to usual diet Activity on Discharge: As tolerated Stand Alone Forms: Patient Portal Discharge page Print Language: Italian Care Plan Goals: sobriety Health Concerns: alcohol use disorder alcohol withdrawal Plan of Treatment: avoid alcohol take thiamine 100 mg daily follow up with intake next week for 6 week [facility] in [place] establish primary care as soon as possible Assessment: See Discharge Summary.
--- NOTE | 2024-12-19 13:37 | MHC.CM.PN ---
Pt has been medically cleared for DC, he will go home today via [facility] shuttle, plan is self care.
== END 2024-12-19 14:35 | disposition home or self-care (01) | DRG 897 ==
LOC: HO.ED 18:45 → HO.EDOVER 20:15 → HO.IMC 21:09
PROVIDERS: Admitting Provider Internal Medicine; Emergency Provider Emergency Medicine; Visit Provider Family Medicine
DX: F10.239 Alcohol dependence with withdrawal, unspecified (principal); Z68.43 Body mass index [BMI] 50.0-59.9, adult; I50.22 Chronic systolic (congestive) heart failure; E66.01 Morbid (severe) obesity due to excess calories; I11.0 Hypertensive heart disease with heart failure; E11.9 Type 2 diabetes mellitus without complications; R07.89 Other chest pain; Y90.6 Blood alcohol level of 120-199 mg/100 ml; F43.10 Post-traumatic stress disorder, unspecified; Z71.3 Dietary counseling and surveillance; G47.33 Obstructive sleep apnea (adult) (pediatric); Z20.822 Contact with and (suspected) exposure to COVID-19; Z79.82 Long term (current) use of aspirin; Z79.84 Long term (current) use of oral hypoglycemic drugs; Z79.899 Other long term (current) drug therapy
CPT/HCPCS: 0241U; 36415; 71045; 80053; 80307; 83735; 83880; 84484; 85025; 85379; 85610; 86140; 93005; 99285; J1630; J1650; J2560; J7120; S9485

== ENCOUNTER → 2024-12-17 05:58 | Outpatient (BNV) | payer MEDICARE, MEDICAID, SELFPAY | PROVIDERS: Visit Provider Radiology Diagnostic Radiology | DX: R07.9 Chest pain, unspecified (principal) | CPT/HCPCS: 71045 ==

== ENCOUNTER → 2024-12-17 19:44 | Outpatient (BNV) | payer MEDICARE, MEDICAID, SELFPAY | PROVIDERS: Admitting Provider Internal Medicine; Emergency Provider Emergency Medicine; Visit Provider Internal Medicine | DX: F10.939 Alcohol use, unspecified with withdrawal, unspecified (principal); F10.90 Alcohol use, unspecified, uncomplicated; E66.01 Morbid (severe) obesity due to excess calories | CPT/HCPCS: 99223; 99232; 99239 ==

== ENCOUNTER 2024-12-24 01:28 | Emergency (ER) | payer OTHER, SELFPAY ==
--- NOTE | 2024-12-24 | ECG_ITS ---
Test Reason : SOB Blood Pressure : */* mmHG Vent. Rate : 102 BPM Atrial Rate : 102 BPM P-R Int : 190 ms QRS Dur : 96 ms QT Int : 386 ms P-R-T Axes : 64 -67 16 degrees QTcB Int : 503 ms Sinus tachycardia Left axis deviation Low voltage QRS Septal infarct (cited on or before 28-Sep-2022) Abnormal ECG When compared with ECG of 18-Dec-2024 13:20, No significant change was found Referred By: Generic ED Physician Electronically Signed By: VERNA TORRES MD
--- NOTE | ~2024-12-24 | XR_ITS ---
CLINICAL HISTORY: dyspnea 1 view chest x-ray Comparison: CR/HI - XR CHEST 1V - 12/17/24 05:56 EST Findings: No consolidation or effusion. Mild cardiomegaly. No acute fracture. IMPRESSION: 1. No acute findings. This document has been electronically signed by: Timothy Prince MD on 12/24/2024 02:39:35
[2024-12-24 01:48] VITALS: BP 144/70; PULSE 90; O2SAT 97
[2024-12-24 01:52] VITALS: BP 146/73; PULSE 107; RESP 26; TEMP 36.3; O2SAT 95; BMI 56.2
--- OUTSIDE RECORDS SUMMARY | 2024-12-24 02:35 | XMS_ITS | Clinical Summary ---
Author Organization [facility] Address [address] [place] [address] Care Team Providers Care Change Person Name Role Phone Ruperto Guillen MD Primary [...] B Vaccines Completed 12/27/2021, 02/04/2021, 07/24/2020 Insurance [employer] MEDICARE Care Teams Change Person Relationship Specialty Start Date End Date Ruperto Guillen MD PCP - General Internal Medicine 04/12/20
[2024-12-24 03:19] LABS: Basophils Percent Auto 0.7 % (0-2); Eosinophils Absolute Auto 0.1 X10*3/uL (0.0-0.4); Hematocrit 38.5 % (42.0-52.0); Hemoglobin 12.7 g/dl (14.0-18.0); Imm Gran Abs Auto 0.02 X10*3/uL (0.00-0.03); Imm Gran Pct Auto 0.3 % (0.0-0.4); Lymphocytes Absolute Auto 1.9 X10*3/uL (1.2-4.9); Lymphocytes Percent Auto 32.4 % (20-40); MANUAL DIFF FLAG NO; Mean Corpuscular Hemoglobin 29.7 pg (27.0-33.0); Mean Platelet Volume 9.2 fL (9.4-12.4); Monocytes Absolute Auto 0.7 X10*3/uL (0.1-1.2); Monocytes Percent Auto 12.7 % (2-11); Neutrophils Absolute Auto 3.1 x10*3/uL (2.0-8.3); Neutrophils Percent Auto 52.9 % (45-73); Platelet Count 214 X10*3/uL (160-400); Red Blood Count 4.28 X10*6/uL (4.60-5.80); Red Cell Distribution Width 17.2 % (11.0-16.0); White Blood Count 5.8 X10*3/uL (4.8-10.8)
[2024-12-24 03:43] LABS: Alanine Aminotransferase 22 U/L (0-40); Albumin Level 3.6 g/dL (3.5-5.0); Anion Gap 12 (12-20); Aspartate Amino Transferase 26 U/L (5-37); Bilirubin Total 0.3 mg/dL (0.0-1.0); Blood Urea Nitrogen 11 mg/dL (9-16); Calcium 8.1 mg/dL (8.4-10.2); Carbon Dioxide 31 mmol/L (22-29); Chloride 107 mmol/L (96-108); Creatinine Clr Calc Pharmacy 230.2; Estimated Glomerular Filt Rate > 60; Glucose Random 117 mg/dL (60-115); Potassium 3.9 mmol/L (3.3-5.1); Sodium 146 mmol/L (135-145); Total Protein 7.4 g/dL (6.5-8.0)
[2024-12-24 03:53] LABS: Influenza A PCR NEGATIVE (Negative); Influenza B PCR NEGATIVE (Negative); Resp Syncy Virus RNA Qual PCR NEGATIVE (Negative); SARS COV2 PCR INHOUSE NEGATIVE (Negative)
--- NOTE | 2024-12-24 03:53 | ED.SOB ---
HPI - SOB/Dyspnea General Chief Complaint: Dyspnea Stated Complaint: sob Time Seen by Provider: 12/24/24 03:52 Source: patient Mode of arrival: EMS Limitations: no limitations History of Present Illness ED Provider: HPI Narrative: Patient is morbidly obese with obstructive sleep apnea with nocturnal hypoxemia using CPAP at night supposed to go for alcohol rehab anxious comes here as he was feeling short of breath and panic on arrival patient is saturating 97% without any distress Related Data Home Medications ?Medication ?Instructions ?Recorded ?Confirmed atorvastatin 40 mg tablet 40 mg PO DAILY 07/24/23 12/17/24 dapagliflozin propanediol 10 mg 10 mg PO DAILY 07/24/23 12/18/24 tablet (Farxiga) omeprazole 20 mg capsule,delayed 40 mg PO DAILY@0630 12/17/24 12/17/24 release carvedilol 25 mg tablet 25 mg PO BID 12/18/24 12/18/24 metformin 500 mg tablet 1,000 mg PO BID 12/18/24 12/18/24 Previous Rx's ?Medication ?Instructions ?Recorded folic acid 0.8 mg capsule 0.8 mg PO DAILY #30 caps 01/22/24 aspirin 81 mg chewable tablet 81 mg PO DAILY #0 tabs 03/08/24 escitalopram oxalate 10 mg tablet 10 mg PO DAILY 30 days #30 tabs 03/08/24 thiamine mononitrate (vit B1) 100 100 mg PO DAILY #30 tabs 12/19/24 mg tablet Allergies Allergy/AdvReac Type Severity Reaction Status Date / Time No Known Allergies Allergy Verified 12/24/24 01:52 Review of Systems Review of Systems: Yes all other systems are reviewed and are negative PMFSH Past Medical History Medical History TERRIE on CPAP Morbid obesity Acute gastritis with bleeding Systolic heart failure Alcohol use disorder, severe, dependence Herniated disc Arthritis PTSD (post-traumatic stress disorder) Depression Anxiety Obesity Sleep apnea Hypertension Diabetes mellitus, type 2 Family History Family History Mother Diabetes Social History Social History Household Members: None Housing: Apartment Do you presently have visiting nurse or other home services: No Alcohol intake: current Alcohol intake frequency: holidays/special occasions only Alcohol type: beer Patient Tobacco Use Status: Never used Tobacco e-Cigarette/Vaping Use: Never Used Second Hand Smoke Exposure: No Substance Use Type: Marijuana and Prescription Drugs Advance Directives: Yes Advance Directives on File: No service: Yes Current occupational status: employed Sexual orientation: Don't Know Physical Exam Vital Signs: Vital Signs: Last Vital Signs Temp 97.5 F 12/24/24 04:39 Pulse 124 H 12/24/24 04:39 Resp 26 H 12/24/24 04:39 BP 123/60 12/24/24 04:39 Pulse Ox 96 12/24/24 04:39 O2 Del Method Room Air 12/24/24 04:39 BMI result Body Mass Index 56.2 Appearance: Alert. Oriented X3. No acute distress. Morbidly obese anxious Eyes: PERRLA, No Nystagmus ENT: Pharynx normal. Oral Mucosa moist Neck: Normal inspection. Neck supple. CVS: Normal heart rate and rhythm. Pulses normal. Respiratory: No respiratory distress. Equal air entry bilateral, no wheezing/rales/rhonchi Abdomen: Soft and nontender. Bowel sounds are present, no mass palpable, no CVA tenderness Skin: Skin warm and dry. Normal skin color. Normal skin turgor. Extremities: No lower extremity edema. No calf tenderness Neuro: Oriented X 3. No motor deficit. No sensory deficit.No cerebellar signs , cranial nerves II-XII intact Medical Decision Making Medical Decision Making [facility] Narrative: Patient with increased anxiety with history of sleep apnea on CPAP with history of alcohol abuse plan to go to detox became anxious unable to sleep saturating 95-97% at room air lungs were clear labs stable discharge patient home advised to follow up with learning solutions specialist and go to detox patient's feel much better at time of discharge Differential Diagnosis Differential Diagnoses: The differential diagnosis associated with the presentation includes Lab Data [facility] Lab Attestation statement: I reviewed the patient's lab results. 12/24/24 03:14 12/24/24 03:14 Labs: Lab Results 12/24/24 12/24/24 Range/Units 03:09 03:14 WBC 5.8 (4.8-10.8) X10*3/uL RBC 4.28 L (4.60-5.80) X10*6/uL Hgb 12.7 L (14.0-18.0) g/dl Hct 38.5 L (42.0-52.0) % MCV 90.0 (80.0-98.0) fL MCH 29.7 (27.0-33.0) pg MCHC 33.0 (31.0-36.0) g/dl RDW 17.2 H (11.0-16.0) % Plt Count 214 D (160-400) X10*3/uL MPV 9.2 L (9.4-12.4) fL Immature Gran % (Auto) 0.3 (0.0-0.4) % Neut % (Auto) 52.9 (45-73) % Lymph % (Auto) 32.4 (20-40) % [place] % (Auto) 12.7 H (2-11) % Eos % (Auto) 1.0 (0-4) % Baso % (Auto) 0.7 (0-2) % Lymph # (Auto) 1.9 (1.2-4.9) X10*3/uL [place] # (Auto) 0.7 (0.1-1.2) X10*3/uL Eos # (Auto) 0.1 (0.0-0.4) X10*3/uL Baso # (Auto) 0.0 (0.0-0.2) X10*3/uL Abs Immat Gran (auto) 0.02 (0.00-0.03) X10*3/uL Absolute Neuts (auto) 3.1 (2.0-8.3) x10*3/uL Absolute Nucleated RBC 0.000 (0.0-0.012) X10*3/uL Nucleated RBC % (auto) 0.0 (0.0-0.2) /100WBC Sodium 146 H (135-145) mmol/L Potassium 3.9 (3.3-5.1) mmol/L Chloride 107 (96-108) mmol/L Carbon Dioxide 31 H (22-29) mmol/L Anion Gap 12 (12-20) BUN 11 (9-16) mg/dL Creatinine 0.61 (0.5-1.4) mg/dL Estim Creat Clear Calc 230.2 Estimated GFR > 60 Random Glucose 117 H (60-115) mg/dL Calcium 8.1 L (8.4-10.2) mg/dL Total Bilirubin 0.3 (0.0-1.0) mg/dL AST 26 (5-37) U/L ALT 22 (0-40) U/L Alkaline Phosphatase 74 (39-117) U/L Troponin I High Sens 13.0 (<3.5-35.0) ng/L Total Protein 7.4 (6.5-8.0) g/dL Albumin 3.6 (3.5-5.0) g/dL Influenza Type A (PCR) NEGATIVE (Negative) Influenza Type B (PCR) NEGATIVE (Negative) RSV RNA Qual (PCR) NEGATIVE (Negative) SARS-CoV-2 RNA (RT-PCR) NEGATIVE (Negative) Independent Interpretation I performed an independent interpretation of an: EKG and Plain X-Ray Interpretation: Sinus tachycardia with heart rate 102 beats per minute left axis deviation no acute STT wave changes no acute ischemia Radiology Impression Discussion of test interpretation with radiology: I have reviewed the radiologist's reading. Radiologist Impression: NAD Discharge Plan Discharge Clinical Impression: TERRIE on CPAP, Anxiety Patient Disposition: Home, Self-Care Instructions: Sleep Apnea (DC), Using Oxygen at Home (ED), Anxiety (ED) Additional Instructions: Continue take your medication follow up with your learning solutions specialist Follow up with the detox Prescriptions: No Action aspirin 81 mg Tablet,Chewable 81 mg PO DAILY Qty: 0 0RF escitalopram oxalate 10 mg Tablet 10 mg PO DAILY 30 Days Qty: 30 0RF atorvastatin 40 mg tablet 40 mg PO DAILY dapagliflozin propanediol [Farxiga] 10 mg tablet 10 mg PO DAILY folic acid 0.8 mg capsule 0.8 mg PO DAILY Qty: 30 2RF omeprazole 20 mg capsule,delayed release(DR/EC) 40 mg PO DAILY@0630 carvedilol 25 mg tablet 25 mg PO BID metformin 500 mg tablet 1,000 mg PO BID thiamine mononitrate (vit B1) 100 mg Tablet 100 mg PO DAILY Qty: 30 0RF Interventions: ED Discharge Assessment Last Done: 12/24/24 04:39 Discharge Date/Time: 12/24/24 04:42 Print Language: Venezuelan
[2024-12-24 03:55] LABS: Alkaline Phosphatase 74 U/L (39-117)
[2024-12-24 04:09] VITALS: BP 123/60; PULSE 124; RESP 26; TEMP 36.4; O2SAT 96
[2024-12-24 04:39] VITALS: BP 123/60; PULSE 124; RESP 26; TEMP 36.4; O2SAT 96
== END 2024-12-24 04:42 | disposition home or self-care (01) ==
PROVIDERS: Emergency Provider Internal Medicine
DX: R06.02 Shortness of breath (principal); G47.33 Obstructive sleep apnea (adult) (pediatric); F41.1 Generalized anxiety disorder; R00.0 Tachycardia, unspecified; Z79.899 Other long term (current) drug therapy; Z03.818 Encounter for observation for suspected exposure to other biological agents ruled out
CPT/HCPCS: 0241U; 71045; 80053; 84484; 85025; 93005; 99283; 99284

== ENCOUNTER → 2024-12-24 02:11 | Outpatient (BNV) | payer OTHER, MEDICARE, MEDICAID, SELFPAY | PROVIDERS: Emergency Provider Internal Medicine; Visit Provider Internal Medicine Cardiovascular Disease | DX: R00.0 Tachycardia, unspecified (principal) | CPT/HCPCS: 93010 ==

== ENCOUNTER → 2024-12-24 02:24 | Outpatient (BNV) | payer OTHER, MEDICARE, MEDICAID, SELFPAY | PROVIDERS: Visit Provider Radiology Diagnostic Radiology | DX: R06.00 Dyspnea, unspecified (principal) | CPT/HCPCS: 71045 ==

== ENCOUNTER 2025-04-27 17:16 | Emergency (ER) | payer OTHER, SELFPAY ==
[2025-04-27 17:26] VITALS: BP 155/80; BP 162/104; PULSE 87; PULSE 92; RESP 16; TEMP 36.8; O2SAT 93; O2SAT 97; BMI 55.9
--- OUTSIDE RECORDS SUMMARY | 2025-04-27 17:57 | XMS_ITS | Referral Summary ---
Author Organization [facility] Address [address] [place] [address] Care Team Providers Care Top Spotter Name Role Phone Ruperto Guillen MD Primary [...] Plan of Treatment Not on file Insurance [facility] [address] MEDICARE Care Teams Top Spotter Relationship Specialty Start Date End Date Ruperto Guillen MD PCP - General Internal Medicine 04/12/20
--- NOTE | 2025-04-27 18:09 | ED_ITS ---
HPI - General Adult General Chief complaint: Extremity Injury, Lower Stated complaint: R sided hip pain unable to walk, 650 acetaminophen Time Seen by Provider: 04/27/25 18:04 Source: patient Limitations: no limitations History of Present Illness ED Provider: Isabelle Medina PA-C HPI narrative: 54-year-old male with a history of alcohol use disorder, PTSD, depression, morbid obesity, TERRIE on CPAP presents with right hip pain. Pain over right hip and right low back with radiation down the lower extremity. Patient was seen at [facility] yesterday after sustaining a fall from his chair in the setting of being intoxicated with alcohol. Patient had CT scans of hip pelvis and lumbar spine, there was no acute injury sustained. He was being treated for sciatica. Patient states he is having difficulty ambulating secondary to his pain, he does not feel he can perform his activities of daily living. Associated paresthesia at times, denies urinary retention, bowel incontinence, weakness of lower extremity. Patient does use a walker at baseline to ambulate. Denies urinary retention, bowel incontinence, weakness of lower extremity. Related Data Home Medications ?Medication ?Instructions ?Recorded ?Confirmed atorvastatin 40 mg tablet 40 mg PO DAILY 07/24/23 04/27/25 omeprazole 20 mg capsule,delayed 40 mg PO DAILY@0630 12/17/24 04/28/25 release metformin 500 mg tablet 1,000 mg PO BID 12/18/24 04/27/25 carvedilol 12.5 mg tablet 12.5 mg PO BID 04/27/25 04/27/25 dapagliflozin propanediol 10 mg 10 mg PO DAILY 04/27/25 04/27/25 tablet (Farxiga) escitalopram oxalate 20 mg tablet 20 mg PO DAILY 04/27/25 04/27/25 folic acid 1 mg tablet 1 mg PO DAILY 04/27/25 04/27/25 losartan 50 mg tablet 50 mg PO DAILY 04/27/25 04/27/25 torsemide 20 mg tablet 20 mg PO DAILY PRN swelling 04/27/25 04/28/25 bupropion HCl 300 mg 24 hr tablet, 300 mg PO DAILY 04/28/25 04/28/25 extended release gabapentin 300 mg capsule 300 mg PO BID 04/28/25 04/28/25 spironolactone 50 mg tablet 50 mg PO DAILY 04/28/25 04/28/25 torsemide 20 mg tablet 20 mg PO DAILY 04/28/25 04/28/25 Previous Rx's ?Medication ?Instructions ?Recorded aspirin 81 mg chewable tablet 81 mg PO DAILY #0 tabs 03/08/24 thiamine mononitrate (vit B1) 100 100 mg PO DAILY #30 tabs 12/19/24 mg tablet Allergies Allergy/AdvReac Type Severity Reaction Status Date / Time No Known Allergies Allergy Verified 04/27/25 17:30 Review of Systems 2 Review of Systems: Yes all other systems are reviewed and are negative Constitutional: Constitutional: Denies fatigue and Denies fever(s) Cardiovascular: Cardiovascular: Denies chest pain and Denies dyspnea Respiratory: Respiratory: Denies cough and Denies dyspnea Gastrointestinal: Gastrointestinal: Denies abdominal pain and Denies nausea Musculoskeletal: Musculoskeletal: Reports back pain, Reports arthralgias, Denies muscle weakness, Denies numbness, Reports radiating pain into limb and Reports tingling Neurologic: Denies numbness and Reports tingling Endocrine: Endocrine: Denies fatigue PMFSH Past Medical History Attestation statement: The following information was validated with the patient. Medical History TERRIE on CPAP Morbid obesity Acute gastritis with bleeding Systolic heart failure Alcohol use disorder, severe, dependence Herniated disc Arthritis PTSD (post-traumatic stress disorder) Depression Anxiety Obesity Sleep apnea Hypertension Diabetes mellitus, type 2 Family History Family History Mother Diabetes Social History Social History Household Members: None Housing: Apartment Do you presently have visiting nurse or other home services: No Alcohol intake: current Alcohol intake frequency: holidays/special occasions only Alcohol type: beer Patient Tobacco Use Status: Never used Tobacco Smoked in Last 30 Days: No e-Cigarette/Vaping Use: Never Used Second Hand Smoke Exposure: No Use of substances other than those prescribed or required for medical reasons: No Substance Use Type: Marijuana and Prescription Drugs Advance Directives: No Advance Directives Information Provided: No service: Yes Current occupational status: employed Sexual orientation: Don't Know Physical Exam ED Vital Signs: Vital Signs - 24 hr 04/28/25 19:42 04/28/25 20:56 04/29/25 00:41 Temperature 97.7 F 98.3 F Pulse Rate 102 H 102 H 84 Respiratory Rate 18 17 Blood Pressure 143/66 H 143/66 H 113/62 Pulse Oximetry 97 95 Oxygen Delivery Method Room Air Room Air 04/29/25 06:00 04/29/25 09:56 04/29/25 09:56 Temperature 98.3 F Pulse Rate 97 97 Respiratory Rate 20 Blood Pressure 137/74 117/70 117/70 Pulse Oximetry 97 Oxygen Delivery Method Room Air 04/29/25 09:58 04/29/25 13:26 04/29/25 14:00 Temperature 97.8 F 97.6 F Pulse Rate 93 97 Respiratory Rate 16 18 Blood Pressure 117/70 117/70 133/82 Pulse Oximetry 95 96 Oxygen Delivery Method Room Air Room Air 04/29/25 15:46 04/29/25 15:49 Temperature 97 F 97 F Pulse Rate 96 96 Respiratory Rate 16 16 Blood Pressure 131/65 131/65 Pulse Oximetry 94 94 Oxygen Delivery Method Room Air Room Air BMI result Body Mass Index 55.9 Const Other: Alert, appears older than stated age Orientation/consciousness: patient oriented x3 Resp Effort & Inspection: normal respiratory effort Cardio Other: Normal peripheral perfusion Skin Other: Warm dry no rash Neuro Other: Antalgic gait General: patient oriented x3, no focal motor deficits and CN's II-XI intact bilaterally Psych Other: Cooperative Course Reevaluation(s) Reevaluation #1: Time: 23:51 Date: 04/27/25 Provider: TARYN Chavira Patient in physician observation for case management needs. No acute events reported overnight.? No current issues or complaints. VS stable. Patient is pending placement at facility/pending PT/CM eval. Will continue to monitor. 04/28/25 09:46 VENU Delgado: Physician observation continued. No overnight events reported by nursing. Awaiting PT evaluation, CM following. Reevaluation #2: 04/28/2025 Case management and physical therapy saw the patient today, the plan is that he will be discharged home in the afternoon at 3:30 p.m., on 04/29 Time: 10:35 Reevaluation #3: VENU Delgado: Patient to be discharged home at 3:30 p.m. today via BLS ambulance. Physical therapy recommended short-term rehab, however no acute rehab beds and patient does not have a qualifying stay for long term facility placement. Unable to obtain VNA because patient does not have a primary care provider. Patient is aware and feels he is safe for discharge home. Observation care revealed that patient does not meet medical necessity for hospitalization. Final disposition discussed with patient. The patient completed observation care at 1530 on 04/29/25. Medications Administered Generic Name Dose Route Start Last Admin Trade Name Alf PRN Reason Stop Dose Admin Acetaminophen 975 mg 04/27/25 23:57 04/29/25 09:55 Acetaminophen 325 Mg Tablet PO 975 mg Q8H PRN Administration pain mild Aspirin 81 mg 04/28/25 09:00 04/29/25 09:56 Aspirin 81 Mg Tab.Chew PO 81 mg DAILY TOBY Administration Atorvastatin Calcium 40 mg 04/28/25 09:00 04/29/25 09:56 Atorvastatin Calcium 40 Mg Tablet PO 40 mg DAILY TOBY Administration Carvedilol 12.5 mg 04/27/25 22:30 04/29/25 09:56 Carvedilol 12.5 Mg Tablet PO 12.5 mg BID TOBY Administration Protocol Empagliflozin 10 mg 04/28/25 09:00 04/29/25 09:57 Empagliflozin 10 Mg Tablet PO 10 mg DAILY TOBY Administration Escitalopram Oxalate 20 mg 04/28/25 09:00 04/29/25 13:27 Escitalopram Oxalate 20 Mg Tablet PO 20 mg DAILY TOBY Administration Folic Acid 1 mg 04/28/25 09:00 04/29/25 09:57 Folic Acid 1 Mg Tablet PO 1 mg DAILY TOBY Administration Ketorolac Tromethamine 10 mg 04/27/25 23:57 04/28/25 03:45 Ketorolac Tromethamine 10 Mg Tablet PO 05/02/25 23:56 10 mg DAILY PRN Administration pain moderate Losartan Potassium 50 mg 04/28/25 09:00 04/29/25 09:56 Losartan Potassium 50 Mg Tablet PO 50 mg DAILY TOBY Administration Protocol Metformin HCl 1,000 mg 04/27/25 22:30 04/29/25 09:56 Metformin Hcl 1,000 Mg Tablet PO 1,000 mg BID TOBY Administration Methocarbamol 750 mg 04/28/25 09:00 04/29/25 14:04 Methocarbamol 750 Mg Tablet PO 750 mg TID TOBY Administration Thiamine HCl 100 mg 04/28/25 09:00 04/29/25 09:57 Thiamine Hcl 100 Mg Tablet PO 100 mg DAILY TOBY Administration Torsemide 20 mg 04/29/25 09:00 04/29/25 13:26 Torsemide 20 Mg Tablet PO 20 mg DAILY TOBY Administration Protocol Discontinued Medications Generic Name Dose Route Start Last Admin Trade Name Isaiahq PRN Reason Stop Dose Admin Acetaminophen 975 mg 04/27/25 21:59 04/27/25 22:14 Acetaminophen 325 Mg Tablet PO 04/27/25 22:00 975 mg ONCE ONE Administration Calcium Carbonate 1,500 mg 04/29/25 15:49 04/29/25 15:52 Calcium Carbonate 750 Mg Tab.Chew PO 04/29/25 15:50 1,500 mg ONCE ONE Administration Ketorolac Tromethamine 15 mg 04/27/25 19:06 04/27/25 19:30 Ketorolac Tromethamine 15 Mg/Ml Vial IM 04/27/25 19:07 15 mg ONCE ONE Administration Ketorolac Tromethamine 10 mg 04/29/25 03:17 04/29/25 03:28 Ketorolac Tromethamine 10 Mg Tablet PO 04/29/25 03:18 10 mg ONCE ONE Administration Magnesium Oxide 800 mg 04/27/25 23:48 04/27/25 23:59 Magnesium Oxide 400 Mg Tablet PO 04/27/25 23:49 800 mg ONCE ONE Administration Methocarbamol 1,500 mg 04/27/25 19:06 04/27/25 19:30 Methocarbamol 750 Mg Tablet PO 04/27/25 19:07 1,500 mg ONCE ONE Administration Potassium Chloride 20 meq 04/27/25 23:48 04/27/25 23:59 Potassium Chloride Er 20 Meq Tab.Er.Prt PO 04/27/25 23:49 20 meq ONCE ONE Administration Prednisone 20 mg 04/28/25 20:45 04/28/25 20:55 Prednisone 20 Mg Tablet PO 04/28/25 20:46 20 mg ONCE ONE Administration Torsemide 20 mg 04/27/25 22:30 04/28/25 08:44 Torsemide 20 Mg Tablet PO 20 mg BID TOBY Administration Protocol Medical Decision Making Medical Decision Making MDM Narrative: 54-year-old male with a history of alcohol use disorder, PTSD, depression, morbid obesity, TERRIE on CPAP presents with right hip pain. Pain over right hip and right low back with radiation down the lower extremity. Patient was seen at [facility] yesterday after sustaining a fall from his chair in the setting of being intoxicated with alcohol. Patient had CT scans of hip pelvis and lumbar spine, there was no acute injury sustained. He was being treated for sciatica. Patient states he is having difficulty ambulating secondary to his pain, he does not feel he can perform his activities of daily living. Associated paresthesia at times, denies urinary retention, bowel incontinence, weakness of lower extremity. Patient does use a walker at baseline to ambulate. Problem: Gait instability, morbid obesity, alcohol use disorder History: Per patient I have considered the following differential diagnoses: Lumbar radiculopathy, cauda equina, musculoskeletal strain, contusion Plan: I obtained imaging from [facility] as well as the report of the patient's emergency room visit, no injury sustained, the patient was being treated for sciatica. We will be holding the patient over for PT case management, placing screening labs, we will use methocarbamol Toradol and Tylenol for his discomfort. There was no indication for repeat imaging, there was no additional injury sustained. Unwell thought about cauda equina, however the patient is not having red flag signs symptoms concerning for cord compression. We will place a CIWA scale, patient currently not exhibiting signs of withdrawal. Labs: No leukocytosis, not anemic, potassium subtly low at 3.2 magnesium subtly low at 1.5, no additional electrolyte abnormalities, ethanol less than 10 Lab Data 04/27/25 21:32 04/27/25 21:32 Labs: Lab Results 04/27/25 04/28/25 04/29/25 Range/Units 21:32 08:26 14:53 WBC 9.3 (4.8-10.8) X10*3/uL RBC 4.01 L (4.60-5.80) X10*6/uL Hgb 12.7 L (14.0-18.0) g/dl Hct 37.1 L (42.0-52.0) % MCV 92.5 (80.0-98.0) fL MCH 31.7 (27.0-33.0) pg MCHC 34.2 (31.0-36.0) g/dl RDW 13.6 (11.0-16.0) % Plt Count 251 (160-400) X10*3/uL MPV 9.6 (9.4-12.4) fL Immature Gran % (Auto) 0.3 (0.0-0.4) % Neut % (Auto) 68.6 (45-73) % Lymph % (Auto) 19.6 L (20-40) % Dare % (Auto) 10.2 (2-11) % Eos % (Auto) 0.6 (0-4) % Baso % (Auto) 0.7 (0-2) % Lymph # (Auto) 1.8 (1.2-4.9) X10*3/uL Dare # (Auto) 1.0 (0.1-1.2) X10*3/uL Eos # (Auto) 0.1 (0.0-0.4) X10*3/uL Baso # (Auto) 0.1 (0.0-0.2) X10*3/uL Abs Immat Gran (auto) 0.03 (0.00-0.03) X10*3/uL Absolute Neuts (auto) 6.4 (2.0-8.3) x10*3/uL Absolute Nucleated RBC 0.000 (0.0-0.012) X10*3/uL Nucleated RBC % (auto) 0.0 (0.0-0.2) /100WBC Sodium 139 (135-145) mmol/L Potassium 3.2 L (3.3-5.1) mmol/L Chloride 104 (96-108) mmol/L Carbon Dioxide 24 (22-29) mmol/L Anion Gap 14 (12-20) BUN 11 (9-16) mg/dL Creatinine 0.59 (0.5-1.4) mg/dL Estim Creat Clear Calc 244.2 Estimated GFR > 60 Random Glucose 105 (60-115) mg/dL Calcium 8.4 (8.4-10.2) mg/dL Magnesium 1.5 L 1.7 (1.6-2.6) mg/dL Total Bilirubin 0.6 (0.0-1.0) mg/dL AST 52 H (5-37) U/L ALT 45 H (0-40) U/L Alkaline Phosphatase 75 (39-117) U/L Total Protein 7.2 (6.5-8.0) g/dL Albumin 3.8 (3.5-5.0) g/dL Ethyl Alcohol < 10 mg/dL Influenza Type A (PCR) NEGATIVE (Negative) Influenza Type B (PCR) NEGATIVE (Negative) RSV RNA Qual (PCR) NEGATIVE (Negative) SARS-CoV-2 RNA (RT-PCR) NEGATIVE (Negative) Discharge Plan Discharge Clinical Impression: Acute right lumbar radiculopathy, Alcohol use disorder, Gait instability, Morbid obesity, Acute hypokalemia, Hypomagnesemia Patient Disposition: Home, Self-Care Instructions: Lumbar Radiculopathy (ED) Additional Instructions: Use resources provided to establish care with a primary care provider. Take all medications as prescribed. Return to the emergency department with new or concerning symptoms. Prescriptions: No Action aspirin 81 mg Tablet,Chewable 81 mg PO DAILY Qty: 0 0RF atorvastatin 40 mg tablet 40 mg PO DAILY omeprazole 20 mg capsule,delayed release(DR/EC) 40 mg PO DAILY@0630 metformin 500 mg tablet 1,000 mg PO BID thiamine mononitrate (vit B1) 100 mg Tablet 100 mg PO DAILY Qty: 30 0RF losartan 50 mg tablet 50 mg PO DAILY torsemide 20 mg tablet 20 mg PO DAILY PRN (Reason: swelling) Rx Instructions: (TAKE AN ADDITIONAL DOSE OF 1 TABLET FOR WEIGHT GAIN GREATER THAN 5 POUNDS OR ANKLE EDEMA) folic acid 1 mg tablet 1 mg PO DAILY escitalopram oxalate 20 mg tablet 20 mg PO DAILY carvedilol 12.5 mg tablet 12.5 mg PO BID dapagliflozin propanediol [Farxiga] 10 mg tablet 10 mg PO DAILY torsemide 20 mg tablet 20 mg PO DAILY gabapentin 300 mg capsule 300 mg PO BID spironolactone 50 mg tablet 50 mg PO DAILY bupropion HCl 300 mg Tablet Extended Release 24 Hr 300 mg PO DAILY Referrals: Ruddy Gregorio RESIDENTIAL PROGRAM DIRECTOR [Primary Care Provider] - Interventions: ED Discharge Assessment Last Done: 04/29/25 15:49 Print Language: Croatian
[2025-04-27] MEDS: methocarbamoL 750 MG TABLET 1500 MG PO (19:30)
[2025-04-27] MEDS: Ketorolac Tromethamine 15 MG/ML VIAL IM (19:30)
[2025-04-27 21:36] LABS: MANUAL DIFF FLAG NO
[2025-04-27 21:37] LABS: Basophils Absolute Auto 0.1 X10*3/uL (0.0-0.2); Basophils Percent Auto 0.7 % (0-2); Eosinophils Absolute Auto 0.1 X10*3/uL (0.0-0.4); Eosinophils Percent Auto 0.6 % (0-4); Hematocrit 37.1 % (42.0-52.0); Hemoglobin 12.7 g/dl (14.0-18.0); Imm Gran Abs Auto 0.03 X10*3/uL (0.00-0.03); Imm Gran Pct Auto 0.3 % (0.0-0.4); Lymphocytes Absolute Auto 1.8 X10*3/uL (1.2-4.9); Lymphocytes Percent Auto 19.6 % (20-40); Mean Corpuscular HGB Conc 34.2 g/dl (31.0-36.0); Mean Corpuscular Hemoglobin 31.7 pg (27.0-33.0); Mean Corpuscular Volume 92.5 fL (80.0-98.0); Mean Platelet Volume 9.6 fL (9.4-12.4); Monocytes Percent Auto 10.2 % (2-11); Neutrophils Absolute Auto 6.4 x10*3/uL (2.0-8.3); Neutrophils Percent Auto 68.6 % (45-73); Platelet Count 251 X10*3/uL (160-400); Red Blood Count 4.01 X10*6/uL (4.60-5.80); Red Cell Distribution Width 13.6 % (11.0-16.0); White Blood Count 9.3 X10*3/uL (4.8-10.8)
[2025-04-27 22:10] LABS: Alanine Aminotransferase 45 U/L (0-40); Albumin Level 3.8 g/dL (3.5-5.0); Alkaline Phosphatase 75 U/L (39-117); Anion Gap 14 (12-20); Aspartate Amino Transferase 52 U/L (5-37); Bilirubin Total 0.6 mg/dL (0.0-1.0); Blood Urea Nitrogen 11 mg/dL (9-16); Calcium 8.4 mg/dL (8.4-10.2); Carbon Dioxide 24 mmol/L (22-29); Chloride 104 mmol/L (96-108); Creatinine Clr Calc Pharmacy 244.2; Estimated Glomerular Filt Rate > 60; Ethanol < 10 mg/dL; Glucose Random 105 mg/dL (60-115); Magnesium 1.5 mg/dL (1.6-2.6); Potassium 3.2 mmol/L (3.3-5.1); Sodium 139 mmol/L (135-145); Total Protein 7.2 g/dL (6.5-8.0)
[2025-04-27 22:12] VITALS: BP 184/95; PULSE 79; RESP 18; TEMP 36.8; O2SAT 95
[2025-04-27] MEDS: Acetaminophen 325 MG TABLET 975 MG PO (22:14)
--- NOTE | 2025-04-27 22:28 | PC.NURSE ---
Med rec done, Pt able to verbalize home meds by pharmacy list.
[2025-04-27] MEDS: Torsemide 20 MG TABLET PO (23:59)
[2025-04-27] MEDS: Potassium Chloride ER 20 MEQ TAB.ER.PRT PO (23:59)
[2025-04-27] MEDS: Magnesium Oxide 400 MG TABLET 800 MG PO (23:59)
[2025-04-28] VITALS (7 sets, daily range): BP systolic 135–188; BP diastolic 66–100; PULSE 82–108; RESP 17–18; TEMP 36.2–36.5; O2SAT 95–97
[2025-04-28] MEDS: metFORMIN HCl 1,000 MG TABLET 1000 MG PO ×3 (00:03→20:56)
--- NOTE | 2025-04-28 02:27 | MHC.EDTECH ---
1600ml urine emptied from urinals
[2025-04-28] MEDS: Ketorolac Tromethamine 10 MG TABLET PO (03:45)
--- NOTE | 2025-04-28 04:53 | PC.NURSE ---
Addendum entered by Jessica Espinosa 04/28/25 04:55: Pt able to ambulate into bathroom using walker. Original Note: Pt medicated per MAR, pt requested recliner/wheelchair, pt witnessed to be sleeping in wheelchair, w/ equal chest rise.
[2025-04-28] MEDS: Torsemide 20 MG TABLET PO (08:44)
[2025-04-28] MEDS: Folic Acid 1 MG TABLET PO (08:45)
[2025-04-28] MEDS: Escitalopram Oxalate 20 MG TABLET PO (08:45)
[2025-04-28] MEDS: Empagliflozin 10 MG TABLET PO (08:45)
[2025-04-28] MEDS: Thiamine HCL 100 MG TABLET PO (08:45)
[2025-04-28] MEDS: Losartan Potassium 50 MG TABLET PO (08:45)
[2025-04-28] MEDS: Atorvastatin Calcium 40 MG TABLET PO (08:45)
[2025-04-28] MEDS: carvediloL 12.5 MG TABLET PO ×3 (08:45→20:56)
[2025-04-28] MEDS: Aspirin 81 MG TAB.CHEW PO (08:45)
[2025-04-28] MEDS: methocarbamoL 750 MG TABLET PO ×3 (08:46→20:55)
[2025-04-28] MEDS: Acetaminophen 325 MG TABLET 975 MG PO ×2 (08:50→16:49)
[2025-04-28 09:25] LABS: Influenza A PCR NEGATIVE (Negative); Influenza B PCR NEGATIVE (Negative); Resp Syncy Virus RNA Qual PCR NEGATIVE (Negative); SARS COV2 PCR INHOUSE NEGATIVE (Negative)
--- NOTE | 2025-04-28 10:14 | PC.NURSE ---
verbal nurse to nurse report given to marilyn HINDS
--- NOTE | 2025-04-28 11:05 | PC.NURSE ---
Addendum entered by Malena Baxter RN 04/28/25 11:06: 54-year-old male with a history of alcohol use disorder, PTSD, depression, morbid obesity, TERRIE on CPAP presents with right hip pain. Pain over right hip and right low back with radiation down the lower extremity. Patient was seen at [facility] yesterday after sustaining a fall from his chair in the setting of being intoxicated with alcohol. Patient had CT scans of hip pelvis and lumbar spine, there was no acute injury sustained. He was being treated for sciatica. Patient states he is having difficulty ambulating secondary to his pain, he does not feel he can perform his activities of daily living. Patient alert and oriented. mobilizes via a W/C. Respirations even and non-labord. Abdomen obese, soft, non-tender with positive bowel sounds. Positive pedal pulses with LE edema noted. Pending case management/PT at this time. Original Note: Medical History TERRIE on CPAP Morbid obesity Acute gastritis with bleeding Systolic heart failure Alcohol use disorder, severe, dependence Herniated disc Arthritis PTSD (post-traumatic stress disorder) Depression Anxiety Obesity Sleep apnea Hypertension Diabetes mellit
--- NOTE | 2025-04-28 11:35 | MHC.CM.ED ---
Received case management consult overnight. Patient came to the ER due to hip pain and difficulty ambulating. Work up indicated sciatica pain. Physical therapy eval completed. Rehab is recommended. Patient has VA insurance listed. Spoke with AG Monroy RN Transitions of Care. Patient is not eligible through the VA for rehab. [facility] is trying to arrange follow up with PCP, Ltizy Rene. Patient has Medicare:[id number]. Patient was inpatient at [facility] 04/17-04/19 and 04/23-04/24. Met with patient in regards to discharge planning. Patient reports living alone, ambulating with a walker and having no services prior to coming to the ER. Copy of HCP obtained from [facility]. Patient is agreeable to rehab. Referral sent to all 3 acute rehab facilities. [facility] not able to offer a bed. [facility] is still reviewing. If [facility] is not able to offer a bed, referral will be sent to all facilities within 15 miles of patient's home for STR via Medicare. Continue to monitor for d/c needs.
--- NOTE | 2025-04-28 13:41 | PC.NURSE ---
Case management at the bedside.
--- NOTE | 2025-04-28 14:01 | MHC.CM.ED ---
Pt declined by all 3 acute rehabs - pt also declined from STR referrals as he does not have a qualifying medicare stay. Attempted to meet with pt to review this information: pt using bathroom - will reapproach.
--- NOTE | 2025-04-28 16:33 | MHC.EDTECH ---
pt urinated 200mL of urine into urinal
--- NOTE | 2025-04-28 18:21 | PHA.MEDREC ---
Pharmacy Consult ? Medication Reconciliation Pharmacy has completed the medication reconciliation. Med rec complete, spoke to patient and compared with pharmacy claim history. Patient answered he is till supposed to be on bupropion xl 300 mg even though last claim history is from February
--- NOTE | 2025-04-28 19:58 | MHC.CM.ED ---
Addendum entered by Ekaterina Apple 04/28/25 20:18: BLS booked with [facility] for 3:30 pm 04/29. No morning appointments available. Pt morbidly obese. Pt states he can manage himself once he is in his apartment. Med [facility] with psychiatric secretary Original Note: CM met with patient with regards to discharge planning. No acute bed offers. No STR as patient does not have a qualifying stay. Pt does not have a PCP. He had one, but is unsure how long it has been since he has seen them. Pt is unsure what VA services he might have, but does not use the VA pharmacy or see a VA provider. Pt is unsure if he is VA connected. Pt is very vague. CM encouraged patient to obtain a PXCP and appointment, as CM cannot request VNA services for this patient without a PCP. Pt is aware. States they are booking 9 months out. CM stressed with patient to take next available appointment. Pt states he is safe to go home, can ambulate around his apartment with his walker, but needs an ambulance to go home, as he cannot walk into building. Pt states his apartment is open, however he cannot get into building tonight, as he doesn't have his keys. Pt will stay overnight, and d/c tomorrow. CM will arrange ambulance transport. Pt aware he may be billed.
--- NOTE | 2025-04-28 20:04 | PC.NURSE ---
pt a&O, sitting in wheel chair, offered pt to sit in recliner or bed, pt Perfer sitting in wheel chair, commode emptied and urinal
--- NOTE | 2025-04-28 20:34 | MHC.EDTECH ---
Per JAIME Carpenter, pt was made aware that transportation via ambulance is scheduled for tomorrow 04/29 at 1530 to bring him back to his residence. Pt agreeable and thankful.
[2025-04-28] MEDS: predniSONE 20 MG TABLET PO (20:55)
--- NOTE | 2025-04-28 20:58 | PC.NURSE ---
medicated per mar.
[2025-04-29] VITALS (8 sets, daily range): BP systolic 113–137; BP diastolic 62–82; PULSE 84–97; RESP 16–20; TEMP 36.1–36.8; O2SAT 94–97
[2025-04-29] MEDS: Ketorolac Tromethamine 10 MG TABLET PO (03:28)
--- NOTE | 2025-04-29 09:28 | MHC.CM.ED ---
Patient remains in ER overflow. Will d/c home via BLS at 330pm. Patient, Florecita RN and Edilia LEA aware. Continue to monitor for d/c needs.
[2025-04-29] MEDS: Acetaminophen 325 MG TABLET 975 MG PO (09:55)
[2025-04-29] MEDS: Losartan Potassium 50 MG TABLET PO (09:56)
[2025-04-29] MEDS: metFORMIN HCl 1,000 MG TABLET 1000 MG PO (09:56)
[2025-04-29] MEDS: Aspirin 81 MG TAB.CHEW PO (09:56)
[2025-04-29] MEDS: carvediloL 12.5 MG TABLET PO (09:56)
[2025-04-29] MEDS: Atorvastatin Calcium 40 MG TABLET PO (09:56)
[2025-04-29] MEDS: Thiamine HCL 100 MG TABLET PO (09:57)
[2025-04-29] MEDS: methocarbamoL 750 MG TABLET PO ×2 (09:57→14:04)
[2025-04-29] MEDS: Folic Acid 1 MG TABLET PO (09:57)
[2025-04-29] MEDS: Empagliflozin 10 MG TABLET PO (09:57)
[2025-04-29] MEDS: Torsemide 20 MG TABLET PO (13:26)
[2025-04-29] MEDS: Escitalopram Oxalate 20 MG TABLET PO (13:27)
[2025-04-29 15:20] LABS: Magnesium 1.7 mg/dL (1.6-2.6)
[2025-04-29] MEDS: Calcium Carbonate 750 MG TAB.CHEW 1500 MG PO (15:52)
--- NOTE | 2025-04-29 17:03 | PC.NURSE ---
verbal report given to ems personnel, pt to home via ambulance
== END 2025-04-29 17:03 | disposition home or self-care (01) ==
PROVIDERS: Physician Assistant Medical; Registered Nurse Emergency; Emergency Provider Internal Medicine; PCP Nurse Practitioner Family
DX: M54.16 Radiculopathy, lumbar region (principal); R26.89 Other abnormalities of gait and mobility; E87.6 Hypokalemia; E83.42 Hypomagnesemia; M25.551 Pain in right hip; F10.988 Alcohol use, unspecified with other alcohol-induced disorder; Y90.0 Blood alcohol level of less than 20 mg/100 ml; E66.01 Morbid (severe) obesity due to excess calories; Z68.43 Body mass index [BMI] 50.0-59.9, adult; E11.9 Type 2 diabetes mellitus without complications; I10 Essential (primary) hypertension; F33.1 Major depressive disorder, recurrent, moderate; F43.10 Post-traumatic stress disorder, unspecified; Z03.818 Encounter for observation for suspected exposure to other biological agents ruled out; Z79.82 Long term (current) use of aspirin; Z79.02 Long term (current) use of antithrombotics/antiplatelets; Z79.84 Long term (current) use of oral hypoglycemic drugs; Z79.899 Other long term (current) drug therapy
CPT/HCPCS: 0241U; 36415; 80053; 80307; 83735; 85025; 96372; 97162; 99285; J1885

== ENCOUNTER 2025-05-02 20:39 | Emergency (ER) | payer OTHER, SELFPAY ==
[2025-05-02 20:50] VITALS: BP 104/76; BP 148/82; PULSE 111; PULSE 114; RESP 30; TEMP 36.7; O2SAT 90; O2SAT 94; BMI 55.1
--- NOTE | 2025-05-02 20:50 | ECG_ITS ---
Test Reason : tachy Blood Pressure : */* mmHG Vent. Rate : 108 BPM Atrial Rate : 108 BPM P-R Int : 174 ms QRS Dur : 96 ms QT Int : 360 ms P-R-T Axes : 43 -47 27 degrees QTcB Int : 482 ms Sinus tachycardia Left axis deviation Low voltage QRS Cannot rule out Anterior infarct (cited on or before 28-Sep-2022) Abnormal ECG When compared with ECG of 24-Dec-2024 02:11, No significant change was found Referred By: Generic ED Physician Electronically Signed By: Daniel Major
--- NOTE | 2025-05-02 20:58 | PC.NURSE ---
Pt reports SOB. O2 sat dropped to 88% on RA. Pt placed on 4L NC with o2 improvement to 94%.
--- NOTE | 2025-05-02 21:19 | MHC.EDTECH ---
Pt requested water, RN and this tech explained that he needs to wait to see the DR . Patient upset, refusing blood work. Pt stating wanting to leave. RN aware.
--- NOTE | 2025-05-02 21:30 | PC.NURSE ---
MD Lucas informed that patient wants to leave without being seen.
[2025-05-02 21:32] LABS: Glucose, Whole Blood 169 mg/dL (60-115)
--- NOTE | 2025-05-02 21:39 | ED.GENADULT ---
HPI - General Adult General Chief complaint: Extremity Injury, Lower Stated complaint: found on road, pinpoint pupils, no narcan Time Seen by Provider: 05/02/25 21:32 Source: patient Mode of arrival: EMS Limitations: no limitations History of Present Illness ED Provider: HPI narrative: Patient's history of anxiety PTSD alcohol use disorder and depression comes here for right hip pain without any injury taking NSAIDs and gabapentin without much relief after arrival patient refused to be examined wanted to walk out of the ER ambulatory in steady gait Related Data Home Medications ?Medication ?Instructions ?Recorded ?Confirmed atorvastatin 40 mg tablet 40 mg PO DAILY 07/24/23 04/27/25 omeprazole 20 mg capsule,delayed 40 mg PO DAILY@0630 12/17/24 04/28/25 release metformin 500 mg tablet 1,000 mg PO BID 12/18/24 04/27/25 carvedilol 12.5 mg tablet 12.5 mg PO BID 04/27/25 04/27/25 dapagliflozin propanediol 10 mg 10 mg PO DAILY 04/27/25 04/27/25 tablet (Farxiga) escitalopram oxalate 20 mg tablet 20 mg PO DAILY 04/27/25 04/27/25 folic acid 1 mg tablet 1 mg PO DAILY 04/27/25 04/27/25 losartan 50 mg tablet 50 mg PO DAILY 04/27/25 04/27/25 torsemide 20 mg tablet 20 mg PO DAILY PRN swelling 04/27/25 04/28/25 bupropion HCl 300 mg 24 hr tablet, 300 mg PO DAILY 04/28/25 04/28/25 extended release gabapentin 300 mg capsule 300 mg PO BID 04/28/25 04/28/25 spironolactone 50 mg tablet 50 mg PO DAILY 04/28/25 04/28/25 torsemide 20 mg tablet 20 mg PO DAILY 04/28/25 04/28/25 Previous Rx's ?Medication ?Instructions ?Recorded aspirin 81 mg chewable tablet 81 mg PO DAILY #0 tabs 03/08/24 thiamine mononitrate (vit B1) 100 100 mg PO DAILY #30 tabs 12/19/24 mg tablet Allergies Allergy/AdvReac Type Severity Reaction Status Date / Time No Known Allergies Allergy Verified 05/02/25 20:57 Review of Systems Review of Systems: Yes all other systems are reviewed and are negative PMF Past Medical History Medical History TERRIE on CPAP Morbid obesity Acute gastritis with bleeding Systolic heart failure Alcohol use disorder, severe, dependence Herniated disc Arthritis PTSD (post-traumatic stress disorder) Depression Anxiety Obesity Sleep apnea Hypertension Diabetes mellitus, type 2 Family History Family History Mother Diabetes Social History Social History Household Members: None Housing: Apartment Do you presently have visiting nurse or other home services: No Alcohol intake: current Alcohol intake frequency: holidays/special occasions only Alcohol type: beer Patient Tobacco Use Status: Never used Tobacco e-Cigarette/Vaping Use: Never Used Second Hand Smoke Exposure: No Substance Use Type: Marijuana and Prescription Drugs Advance Directives: No Advance Directives Information Provided: Yes Do you have a plan to hurt others: No Plan service: Yes Current occupational status: employed Sexual orientation: Don't Know Physical Exam ED Vital Signs: Vital Signs - 24 hr 05/02/25 20:50 Temperature 98.0 F Pulse Rate 114 H Respiratory Rate 30 H Blood Pressure 104/76 Pulse Oximetry 94 Oxygen Delivery Method Nasal Cannula Oxygen Flow Rate 4 BMI result Body Mass Index 55.1 Appearance: Alert. Oriented X3. No acute distress. Obese anxious ambulatory in steady gait Eyes: No pallor or icterus ENT: Pharynx normal. Oral Mucosa moist Neck: Normal inspection. Neck supple. CVS: Normal heart rate and rhythm. Pulses normal. Respiratory: No respiratory distress. Equal air entry bilateral, no wheezing/rales/rhonchi Abdomen: Soft and nontender. Bowel sounds are present, no mass palpable, no CVA tenderness Skin: Skin warm and dry. Normal skin color. Normal skin turgor. Extremities: No lower extremity edema. No calf tenderness Neuro: Oriented X 3. No motor deficit. No sensory deficit.No cerebellar signs , cranial nerves II-XII intact Medical Decision Making Medical Decision Making [facility] Narrative: Patient has chronic right hip pain ambulatory in the ER refusing any treatment and management no recent fall very anxious refused any labs or treatment patient was seen here on 04/27 Lab Data [facility] Lab Attestation statement: I reviewed the patient's lab results. Labs: Lab Results 05/02/25 Range/Units 21:28 POC Glucose 169 H (60-115) mg/dL Discharge Plan Discharge Clinical Impression: Chronic hip pain Patient Disposition: Left W/O Completing Treatment Prescriptions: No Action aspirin 81 mg Tablet,Chewable 81 mg PO DAILY Qty: 0 0RF atorvastatin 40 mg tablet 40 mg PO DAILY omeprazole 20 mg capsule,delayed release(DR/EC) 40 mg PO DAILY@0630 metformin 500 mg tablet 1,000 mg PO BID thiamine mononitrate (vit B1) 100 mg Tablet 100 mg PO DAILY Qty: 30 0RF losartan 50 mg tablet 50 mg PO DAILY torsemide 20 mg tablet 20 mg PO DAILY PRN (Reason: swelling) Rx Instructions: (TAKE AN ADDITIONAL DOSE OF 1 TABLET FOR WEIGHT GAIN GREATER THAN 5 POUNDS OR ANKLE EDEMA) folic acid 1 mg tablet 1 mg PO DAILY escitalopram oxalate 20 mg tablet 20 mg PO DAILY carvedilol 12.5 mg tablet 12.5 mg PO BID dapagliflozin propanediol [Farxiga] 10 mg tablet 10 mg PO DAILY torsemide 20 mg tablet 20 mg PO DAILY gabapentin 300 mg capsule 300 mg PO BID spironolactone 50 mg tablet 50 mg PO DAILY bupropion HCl 300 mg Tablet Extended Release 24 Hr 300 mg PO DAILY Interventions: PENNIEBS Worksheet Last Done: 05/02/25 21:50 Discharge Date/Time: 05/02/25 21:50
--- NOTE | 2025-05-02 21:44 | PC.NURSE ---
MD Lucas signed up and saw patient, listened to lungs, offered care to patient but patient refused all care, interventions, etc. states he just wants to leave. ambulated out into waiting room independently and seen by MD Lucas in [facility].
--- NOTE | 2025-05-02 21:46 | PC.NURSE ---
Pt refused to have blood work and IV line established. Reports wanting to leave and preceded to walk steady to the exit. MD met with pt before leaving and pt is adamant that he wants to leave and left. Charge nurse aware.
== END 2025-05-02 21:50 | disposition left against medical advice (07) ==
PROVIDERS: Emergency Provider Internal Medicine
DX: M25.551 Pain in right hip (principal); R00.0 Tachycardia, unspecified; F41.9 Anxiety disorder, unspecified; Z79.899 Other long term (current) drug therapy
CPT/HCPCS: 82947; 93005; 99283

== ENCOUNTER → 2025-05-02 20:50 | Outpatient (BNV) | payer OTHER, SELFPAY | PROVIDERS: Emergency Provider Internal Medicine; Visit Provider Internal Medicine Cardiovascular Disease | DX: R00.0 Tachycardia, unspecified (principal) | CPT/HCPCS: 93010 ==

== ENCOUNTER 2025-06-01 20:01 | Emergency (ER) | payer OTHER, SELFPAY ==
--- NOTE | ~2025-06-01 | XR_ITS ---
CLINICAL HISTORY: shortness of breath 1 view chest x-ray Comparison: CR - XR CHEST 1V - 12/24/24 02:21 EST Findings: Mild left basilar opacities are present. Normal size heart. No acute fracture. IMPRESSION: Mild left basilar opacities, which may represent atelectasis or pneumonia. This document has been electronically signed by: Yeimy Faulkner on 06/01/2025 21:32:38
[2025-06-01 20:03] VITALS: BP 107/71; BP 140/90; PULSE 101; PULSE 109; RESP 20; TEMP 36.9; O2SAT 94; O2SAT 99; BMI 55.5
--- NOTE | 2025-06-01 20:09 | ED.GENADULT ---
HPI - General Adult General Chief complaint: Dyspnea Stated complaint: SOB, hx CHF, pt diaphoretic Time Seen by Provider: 06/01/25 20:09 History of Present Illness ED Provider: Marlon MORALES narrative: The patient is a 54-year-old male with a history of alcoholism and a nonischemic cardiomyopathy. He lives on his own in his own apartment in a [facility] complex in [place]. He also has a history of hypertension, hyperlipidemia, type 2 diabetes, obstructive sleep apnea on CPAP, and diabetic neuropathy. The patient says that he became fairly abruptly short of breath this afternoon and called an ambulance and was brought to the hospital this evening. He denies chest pain. He does not know if he might have had a fever. The patient was seen at the emergency room at [facility] yesterday. Apparently he presented there yesterday at around 19:00. He had an extensive workup that included a negative chest x-ray, negative troponins, negative D-dimer. He is observed and seemed to feel better without specific treatment. He was discharged at around 01:00 this morning. The patient is an alcoholic and acknowledges that he had alcohol earlier today. He does not think he has missed doses of furosemide. He is quite certain he has been furosemide at home. Related Data Home Medications ?Medication ?Instructions ?Recorded ?Confirmed atorvastatin 40 mg tablet 40 mg PO DAILY 07/24/23 04/27/25 omeprazole 20 mg capsule,delayed 40 mg PO DAILY@0630 12/17/24 04/28/25 release metformin 500 mg tablet 1,000 mg PO BID 12/18/24 04/27/25 carvedilol 12.5 mg tablet 12.5 mg PO BID 04/27/25 04/27/25 dapagliflozin propanediol 10 mg 10 mg PO DAILY 04/27/25 04/27/25 tablet (Farxiga) escitalopram oxalate 20 mg tablet 20 mg PO DAILY 04/27/25 04/27/25 folic acid 1 mg tablet 1 mg PO DAILY 04/27/25 04/27/25 losartan 50 mg tablet 50 mg PO DAILY 04/27/25 04/27/25 torsemide 20 mg tablet 20 mg PO DAILY PRN swelling 04/27/25 04/28/25 bupropion HCl 300 mg 24 hr tablet, 300 mg PO DAILY 04/28/25 04/28/25 extended release gabapentin 300 mg capsule 300 mg PO BID 04/28/25 04/28/25 spironolactone 50 mg tablet 50 mg PO DAILY 04/28/25 04/28/25 torsemide 20 mg tablet 20 mg PO DAILY 04/28/25 04/28/25 Previous Rx's ?Medication ?Instructions ?Recorded aspirin 81 mg chewable tablet 81 mg PO DAILY #0 tabs 03/08/24 thiamine mononitrate (vit B1) 100 100 mg PO DAILY #30 tabs 12/19/24 mg tablet Allergies Allergy/AdvReac Type Severity Reaction Status Date / Time No Known Allergies Allergy Verified 06/01/25 20:07 Review of Systems Review of Systems: Yes all other systems are reviewed and are negative [facility] Past Medical History Medical History TERRIE on CPAP Morbid obesity Acute gastritis with bleeding Systolic heart failure Alcohol use disorder, severe, dependence Herniated disc Arthritis PTSD (post-traumatic stress disorder) Depression Anxiety Obesity Sleep apnea Hypertension Diabetes mellitus, type 2 Family History Family History Mother Diabetes Social History Social History Household Members: None Housing: Apartment Do you presently have visiting nurse or other home services: No Alcohol intake: current Alcohol intake frequency: holidays/special occasions only Alcohol type: beer Patient Tobacco Use Status: Never used Tobacco e-Cigarette/Vaping Use: Never Used Second Hand Smoke Exposure: No Substance Use Type: Marijuana and Prescription Drugs Advance Directives: No Advance Directives Information Provided: No Advance Directives on File: No service: Yes Current occupational status: employed Sexual orientation: Don't Know Physical Exam ED Vital Signs: Vital Signs - 24 hr 06/01/25 20:03 06/01/25 20:12 06/01/25 21:19 Temperature 98.4 F Pulse Rate 109 H 87 97 Respiratory Rate 20 18 20 Blood Pressure 107/71 104/53 L Pulse Oximetry 94 95 Oxygen Delivery Method Room Air Oxymask Oxygen Flow Rate 06/01/25 22:21 06/02/25 01:45 06/02/25 04:25 Temperature 98.2 F Pulse Rate 84 82 Respiratory Rate 22 H 22 H Blood Pressure 100/47 L 139/59 L Pulse Oximetry 95 96 95 Oxygen Delivery Method Room Air Oxymask Oxymask Oxygen Flow Rate 2 06/02/25 05:24 Temperature 97.5 F Pulse Rate 69 Respiratory Rate 16 Blood Pressure 141/88 H Pulse Oximetry 95 Oxygen Delivery Method Room Air Oxygen Flow Rate BMI result Body Mass Index 55.5 Const Other: The patient is a morbidly obese 54-year-old man who has been placed on CPAP by paramedics. He looked somewhat sweaty. He said he was very short of breath. No obvious accessory muscle use however. HENMT Other: The face is symmetrical. ?Mucous membranes moist. Eyes Other: Pupils are round equal, conjunctivae are clear, extraocular movements intact Neck Other: The neck was supple. The neck was quite thick. I could not appreciate the presence of JVD. Resp Other: Breath sounds were not markedly abnormal. No definite wheezes or crackles. Cardio Rate: regular rate Rhythm: regular rhythm Heart sounds: S1 normal heart sound present and S2 normal heart sound present GI Other: The abdomen is soft and nontender Skin Other: Skin is dry and unremarkable. No erythema. Neuro Other: The patient was awake and alert. He seemed fatigued. He was not frankly obtunded or delirious. Cranial nerves are grossly intact. He moves his extremities symmetrically and appropriately. No focal findings. Extrem Other: The patient has lower legs are thick but not obviously edematous. No pitting edema. Medications Administered Discontinued Medications Generic Name Dose Route Start Last Admin Trade Name Freq PRN Reason Stop Dose Admin Albuterol/Ipratropium 3 ml 06/01/25 20:10 06/01/25 20:42 Albuterol/Iprat 2.5/0.5mg 3 Ml Ampul.Neb INHALE 06/01/25 20:11 3 ml ONCE ONE Administration Furosemide 80 mg 06/01/25 21:14 06/01/25 21:18 Furosemide 100 Mg/10 Ml Vial IVPUSH 06/01/25 21:15 80 mg ONCE ONE Administration Protocol Procedures Procedure Narrative Procedure Narrative: Ultrasound-guided IV 20 gauge 1.16 in IV placed in left upper extremity. Adequate blood return, flushes well, secured with Tegaderm performed by Isabelle Medina PA-C Medical Decision Making Medical Decision Making MDM Narrative: The patient arrived complaining of severe shortness of breath. The patient is a 54-year-old obese man with a history of a nonischemic cardiomyopathy. He is also an alcoholic. He was seen at the emergency room for shortness of breath yesterday and had an essentially negative workup. He did not receive any acute treatment and ultimately left the emergency room claiming he was feeling better. He comes to the hospital with a stating his very short of breath and requesting supplemental oxygen by mask. His lung sounds were not obviously abnormal. He was given a DuoNeb updraft. I believe he is supposed to be on 40 mg of furosemide daily. He claims he has been taking the furosemide. He was given 80 mg of IV furosemide. His workup shows a BNP of 193. This is higher than recent BNP ease. His alcohol level is 271. remarkable aside from an alcohol level of 271. His D-dimer is normal at 190. His troponin is normal at 9.4. He does not describe any chest pain which makes me suspect an acute coronary syndrome. He claimed that he might has been febrile at home but he is not febrile here. His white count is 7.9 with no left shift. His procalcitonin in his normal. I do not have any significant suspicion for an acute bacterial illness. Blood cultures and a lactic acid has been sent because of his report of a possible fever but I do not think he is septic or significantly infected. The patient diuresed a great deal after 80 mg of IV furosemide. I believe he put out as much as 3 L of urine. I spoke to the patient further about his situation. Apparently he does not have a bed in his apartment currently. He has a chair but it is not a recliner. He there has to try to sleep in the chair or sleep on the floor. He has a CPAP machine which he requires at night. The patient is [facility] and I recommended that we keep him in the emergency room for an evaluation by the recovery team to possibly go to detox through the [facility] tomorrow. He says he can not go to detox tomorrow because he has some appointment on Monday he must keep so he does not lose his apartment. He says that he would consider detox after he has secured his apartment. He has also working on getting a new bed for his apartment. He says that somebody throughout his old bed. He anticipates getting money later this week (his disability money) and he hopes to get a new bed at that point. This point the patient seems considerably more stable. He does not desaturate on room air when he is awake. He does desaturate when he falls asleep but I believe that is because we do not have him on CPAP, which he normally uses when he is at home. He has significant obstructive sleep apnea. The patient has requested that he be allowed to spend the night in the emergency room since he does not have a bed at home. At this point I feel that keeping him in the emergency room to 06:00 and discharging at that point is reasonable. He says he can arrange for a Lyft taxi to take him home. Lab Data 06/01/25 20:39 06/01/25 20:39 Labs: Lab Results 06/01/25 06/01/25 06/02/25 Range/Units 20:39 20:49 00:22 WBC 7.9 (4.8-10.8) X10*3/uL RBC 4.07 L (4.60-5.80) X10*6/uL Hgb 12.6 L (14.0-18.0) g/dl Hct 37.7 L (42.0-52.0) % MCV 92.6 (80.0-98.0) fL MCH 31.0 (27.0-33.0) pg MCHC 33.4 (31.0-36.0) g/dl RDW 13.1 (11.0-16.0) % Plt Count 299 (160-400) X10*3/uL MPV 9.8 (9.4-12.4) fL Immature Gran % (Auto) 0.3 (0.0-0.4) % Neut % (Auto) 45.9 (45-73) % Lymph % (Auto) 41.5 H (20-40) % [place] % (Auto) 9.7 (2-11) % Eos % (Auto) 1.6 (0-4) % Baso % (Auto) 1.0 (0-2) % Lymph # (Auto) 3.3 (1.2-4.9) X10*3/uL [place] # (Auto) 0.8 (0.1-1.2) X10*3/uL Eos # (Auto) 0.1 (0.0-0.4) X10*3/uL Baso # (Auto) 0.1 (0.0-0.2) X10*3/uL Abs Immat Gran (auto) 0.02 (0.00-0.03) X10*3/uL Absolute Neuts (auto) 3.6 (2.0-8.3) x10*3/uL Absolute Nucleated RBC 0.000 (0.0-0.012) X10*3/uL Nucleated RBC % (auto) 0.0 (0.0-0.2) /100WBC PT 12.5 H (10.9-12.4) SEC INR 1.1 (0.9-1.1) D-Dimer High Sensitivty 190 NG/ML VBG pH 7.49 H (7.32-7.43) VBG pCO2 38 mmHg VBG pO2 72 mmHg VBG HCO3 29 H (22-26) mmol/L VBG O2 Saturation 94.0 % VBG Base Excess 6.3 mmol/L Sodium 146 H (135-145) mmol/L Potassium 3.4 (3.3-5.1) mmol/L Chloride 110 H (96-108) mmol/L Carbon Dioxide 25 (22-29) mmol/L Anion Gap 14 (12-20) BUN 9 (9-16) mg/dL Creatinine 0.52 (0.5-1.4) mg/dL Estim Creat Clear Calc 275.7 Estimated GFR > 60 Random Glucose 154 H (60-115) mg/dL Lactic Acid 3.0 H* (0.5-2.0) mmol/L Lactic Acid F/U @ 2Hr 2.9 H* (0.5-2.0) mmol/L Calcium 8.3 L (8.4-10.2) mg/dL Magnesium 1.8 (1.6-2.6) mg/dL Total Bilirubin 0.1 (0.0-1.0) mg/dL Direct Bilirubin < 0.2 (0.0-0.5) mg/dL AST 55 H (5-37) U/L ALT 49 H (0-40) U/L Alkaline Phosphatase 80 (39-117) U/L Troponin I High Sens 9.4 (<3.5-35.0) ng/L C-Reactive Protein 0.79 H (< or = 0.50) mg/dL B-Natriuretic Peptide 193 H (<100) pg/mL Total Protein 7.5 (6.5-8.0) g/dL Albumin 4.0 (3.5-5.0) g/dL Procalcitonin 0.02 ng/mL Urine Color Urine Appearance Urine pH (5.0-9.0) Ur Specific [place] (1.005-1.025) Urine Protein (Neg-Trace) mg/dL Urine Glucose (UA) (Negative) mg/dL Urine Ketones (Negative) mg/dL Urine Blood (Negative) Urine Nitrite (Negative) Ur Leukocyte Esterase (Negative) Urine Opiates Screen (Not Detect) Ur Buprenorphine Scrn (Not Detect) ng/mL Ur Oxycodone Screen (Not Detect) ng/mL Urine Methadone Screen (Not Detect) ng/mL Urine Fentanyl Screen (Not Detect) Ur Barbiturates Screen (Not Detect) Ur Phencyclidine Scrn (Not Detect) Ur Amphetamines Screen (Not Detect) U Benzodiazepines Scrn (Not Detect) Urine Cocaine Screen (Not Detect) U Marijuana (THC) Screen (Not Detect) Ethyl Alcohol 271 mg/dL Influenza Type A (PCR) NEGATIVE (Negative) Influenza Type B (PCR) NEGATIVE (Negative) RSV RNA Qual (PCR) NEGATIVE (Negative) SARS-CoV-2 RNA (RT-PCR) NEGATIVE (Negative) 06/02/25 Range/Units 02:01 WBC (4.8-10.8) X10*3/uL RBC (4.60-5.80) X10*6/uL Hgb (14.0-18.0) g/dl Hct (42.0-52.0) % MCV (80.0-98.0) fL MCH (27.0-33.0) pg MCHC (31.0-36.0) g/dl RDW (11.0-16.0) % Plt Count (160-400) X10*3/uL MPV (9.4-12.4) fL Immature Gran % (Auto) (0.0-0.4) % Neut % (Auto) (45-73) % Lymph % (Auto) (20-40) % [place] % (Auto) (2-11) % Eos % (Auto) (0-4) % Baso % (Auto) (0-2) % Lymph # (Auto) (1.2-4.9) X10*3/uL [place] # (Auto) (0.1-1.2) X10*3/uL Eos # (Auto) (0.0-0.4) X10*3/uL Baso # (Auto) (0.0-0.2) X10*3/uL Abs Immat Gran (auto) (0.00-0.03) X10*3/uL Absolute Neuts (auto) (2.0-8.3) x10*3/uL Absolute Nucleated RBC (0.0-0.012) X10*3/uL Nucleated RBC % (auto) (0.0-0.2) /100WBC PT (10.9-12.4) SEC INR (0.9-1.1) D-Dimer High Sensitivty NG/ML VBG pH (7.32-7.43) VBG pCO2 mmHg VBG pO2 mmHg VBG HCO3 (22-26) mmol/L VBG O2 Saturation % VBG Base Excess mmol/L Sodium (135-145) mmol/L Potassium (3.3-5.1) mmol/L Chloride (96-108) mmol/L Carbon Dioxide (22-29) mmol/L Anion Gap (12-20) BUN (9-16) mg/dL Creatinine (0.5-1.4) mg/dL Estim Creat Clear Calc Estimated GFR Random Glucose (60-115) mg/dL Lactic Acid (0.5-2.0) mmol/L Lactic Acid F/U @ 2Hr (0.5-2.0) mmol/L Calcium (8.4-10.2) mg/dL Magnesium (1.6-2.6) mg/dL Total Bilirubin (0.0-1.0) mg/dL Direct Bilirubin (0.0-0.5) mg/dL AST (5-37) U/L ALT (0-40) U/L Alkaline Phosphatase (39-117) U/L Troponin I High Sens (<3.5-35.0) ng/L C-Reactive Protein (< or = 0.50) mg/dL B-Natriuretic Peptide (<100) pg/mL Total Protein (6.5-8.0) g/dL Albumin (3.5-5.0) g/dL Procalcitonin ng/mL Urine Color Yellow Urine Appearance Clear Urine pH 5.5 (5.0-9.0) Ur Specific [place] 1.010 (1.005-1.025) Urine Protein Negative (Neg-Trace) mg/dL Urine Glucose (UA) Negative (Negative) mg/dL Urine Ketones Negative (Negative) mg/dL Urine Blood Negative (Negative) Urine Nitrite Negative (Negative) Ur Leukocyte Esterase Negative (Negative) Urine Opiates Screen Not Detected (Not Detect) Ur Buprenorphine Scrn Not Detected (Not Detect) ng/mL Ur Oxycodone Screen Not Detected (Not Detect) ng/mL Urine Methadone Screen Not Detected (Not Detect) ng/mL Urine Fentanyl Screen Not Detected (Not Detect) Ur Barbiturates Screen POSITIVE H (Not Detect) Ur Phencyclidine Scrn Not Detected (Not Detect) Ur Amphetamines Screen Not Detected (Not Detect) U Benzodiazepines Scrn Not Detected (Not Detect) Urine Cocaine Screen Not Detected (Not Detect) U Marijuana (THC) Screen Not Detected (Not Detect) Ethyl Alcohol mg/dL Influenza Type A (PCR) (Negative) Influenza Type B (PCR) (Negative) RSV RNA Qual (PCR) (Negative) SARS-CoV-2 RNA (RT-PCR) (Negative) Discharge Plan Discharge Clinical Impression: Shortness of breath, Nonischemic cardiomyopathy, Alcohol intoxication, Alcoholism Patient Disposition: Home, Self-Care Additional Instructions: Please make sure that you take your furosemide daily. Take your other regular medications as well. Please contact your primary care provider at the [place] to discuss how you might be able to get into some kind of detox program later this week. Return to the emergency room if significantly worse.. Prescriptions: No Action aspirin 81 mg Tablet,Chewable 81 mg PO DAILY Qty: 0 0RF atorvastatin 40 mg tablet 40 mg PO DAILY omeprazole 20 mg capsule,delayed release(DR/EC) 40 mg PO DAILY@0630 metformin 500 mg tablet 1,000 mg PO BID thiamine mononitrate (vit B1) 100 mg Tablet 100 mg PO DAILY Qty: 30 0RF losartan 50 mg tablet 50 mg PO DAILY torsemide 20 mg tablet 20 mg PO DAILY PRN (Reason: swelling) Rx Instructions: (TAKE AN ADDITIONAL DOSE OF 1 TABLET FOR WEIGHT GAIN GREATER THAN 5 POUNDS OR ANKLE EDEMA) folic acid 1 mg tablet 1 mg PO DAILY escitalopram oxalate 20 mg tablet 20 mg PO DAILY carvedilol 12.5 mg tablet 12.5 mg PO BID dapagliflozin propanediol [Farxiga] 10 mg tablet 10 mg PO DAILY torsemide 20 mg tablet 20 mg PO DAILY gabapentin 300 mg capsule 300 mg PO BID spironolactone 50 mg tablet 50 mg PO DAILY bupropion HCl 300 mg Tablet Extended Release 24 Hr 300 mg PO DAILY Referrals: Ruddy Gregorio [employer] [Nurse Practitioner, Internal Medicine] Interventions: ED Discharge Assessment Last Done: 06/02/25 05:24 Discharge Date/Time: 06/02/25 05:25 Print Language: Congolese
--- NOTE | 2025-06-01 20:10 | ECG_ITS ---
Test Reason : SOB Blood Pressure : */* mmHG Vent. Rate : 105 BPM Atrial Rate : 105 BPM P-R Int : 192 ms QRS Dur : 100 ms QT Int : 302 ms P-R-T Axes : 19 -73 15 degrees QTcB Int : 399 ms Sinus tachycardia Possible Left atrial enlargement Low voltage QRS Incomplete right bundle branch block Left anterior fascicular block Possible Anterolateral infarct (cited on or before 24-Dec-2022) Abnormal ECG When compared with ECG of 02-May-2025 20:51, Nonspecific T wave abnormality now evident in Lateral leads QT has shortened Referred By: Nir Mason Electronically Signed By: Daniel Major
[2025-06-01 20:12] VITALS: PULSE 87; RESP 18; O2SAT 97
[2025-06-01] MEDS: Albuterol/Iprat 2.5/0.5MG 3 ML AMPUL.NEB INHALE (20:42)
[2025-06-01 20:49] LABS: MANUAL DIFF FLAG NO
[2025-06-01 20:50] LABS: Hematocrit 37.7 % (42.0-52.0); Hemoglobin 12.6 g/dl (14.0-18.0); Imm Gran Abs Auto 0.02 X10*3/uL (0.00-0.03); Imm Gran Pct Auto 0.3 % (0.0-0.4); Lymphocytes Absolute Auto 3.3 X10*3/uL (1.2-4.9); Mean Corpuscular HGB Conc 33.4 g/dl (31.0-36.0); Mean Corpuscular Hemoglobin 31.0 pg (27.0-33.0); Mean Corpuscular Volume 92.6 fL (80.0-98.0); NRBC Abs Auto 0.000 X10*3/uL (0.0-0.012); NRBC Pct Auto 0.0 /100WBC (0.0-0.2); Platelet Count 299 X10*3/uL (160-400); Red Blood Count 4.07 X10*6/uL (4.60-5.80); White Blood Count 7.9 X10*3/uL (4.8-10.8)
[2025-06-01 20:52] LABS: Venous Blood Gas Refer to POC result
[2025-06-01 20:52] LABS: VBG HCO3 29 mmol/L (22-26); VBG O2 % Saturation 94.0 %
[2025-06-01 20:57] LABS: INTERNATIONAL NORM RATIO 1.1 (0.9-1.1); Prothrombin Time 12.5 SEC (10.9-12.4)
[2025-06-01 21:10] LABS: B Type Natriuretic Peptide 193 pg/mL (<100)
[2025-06-01 21:12] LABS: Troponin-I High Sensitivity 9.4 ng/L (<3.5-35.0)
[2025-06-01 21:15] LABS: Alanine Aminotransferase 49 U/L (0-40); Albumin Level 4.0 g/dL (3.5-5.0); Alkaline Phosphatase 80 U/L (39-117); Anion Gap 14 (12-20); Aspartate Amino Transferase 55 U/L (5-37); Blood Urea Nitrogen 9 mg/dL (9-16); Calcium 8.3 mg/dL (8.4-10.2); Carbon Dioxide 25 mmol/L (22-29); Chloride 110 mmol/L (96-108); Creatinine Clr Calc Pharmacy 275.7; Estimated Glomerular Filt Rate > 60; Magnesium 1.8 mg/dL (1.6-2.6); Potassium 3.4 mmol/L (3.3-5.1); Sodium 146 mmol/L (135-145); Total Protein 7.5 g/dL (6.5-8.0)
[2025-06-01] MEDS: Furosemide 100 MG/10 ML VIAL 80 MG IVPUSH (21:18)
[2025-06-01 21:19] VITALS: BP 104/53; PULSE 97; RESP 20; O2SAT 95
[2025-06-01 21:26] LABS: D Dimer High Sensitivity 190 NG/ML; Resp Syncy Virus RNA Qual PCR NEGATIVE (Negative); SARS COV2 PCR INHOUSE NEGATIVE (Negative)
[2025-06-01 21:27] LABS: Procalcitonin 0.02 ng/mL
[2025-06-01 22:21] VITALS: O2SAT 95
[2025-06-01 22:47] LABS: Reflex Lactate? Lactic Acid Added
[2025-06-02 00:51] LABS: ~Lactic Acid-LAB USE ONLY 2.9 mmol/L (0.5-2.0)
[2025-06-02 01:45] VITALS: BP 100/47; PULSE 84; RESP 22; TEMP 36.8; O2SAT 96
[2025-06-02 02:09] LABS: Appearance Urine Clear; Glucose Urine UA Negative (Negative); PH 5.5 (5.0-9.0); Specific Gravity - Urine 1.010 (1.005-1.025)
[2025-06-02 02:19] LABS: Cannabinoid Screen Urine Not Detected (Not Detect)
[2025-06-02 02:25] LABS: Reflex Lactate? 2 Y
[2025-06-02 04:25] VITALS: BP 139/59; PULSE 82; RESP 22; O2SAT 95
--- NOTE | 2025-06-02 04:52 | PC.NURSE ---
patient reports when he stood up he began having increased chest pain and SOB. o2 placed back on patient. provider aware. no new orders at this time.
[2025-06-02 05:24] VITALS: BP 141/88; PULSE 69; RESP 16; TEMP 36.4; O2SAT 95
== END 2025-06-02 05:25 | disposition home or self-care (01) ==
PROVIDERS: Emergency Medicine; Emergency Provider Emergency Medicine
DX: R06.02 Shortness of breath (principal); E11.9 Type 2 diabetes mellitus without complications; G47.33 Obstructive sleep apnea (adult) (pediatric); E11.40 Type 2 diabetes mellitus with diabetic neuropathy, unspecified; I50.9 Heart failure, unspecified; E66.01 Morbid (severe) obesity due to excess calories; R00.0 Tachycardia, unspecified; I45.10 Unspecified right bundle-branch block; I10 Essential (primary) hypertension; Z68.43 Body mass index [BMI] 50.0-59.9, adult; Z51.81 Encounter for therapeutic drug level monitoring; Z79.899 Other long term (current) drug therapy; Z79.84 Long term (current) use of oral hypoglycemic drugs; Z03.818 Encounter for observation for suspected exposure to other biological agents ruled out
CPT/HCPCS: 36415; 71045; 80048; 80076; 80307; 81003; 82803; 83605; 83735; 83880; 84145; 84484; 85025; 85379; 85610; 86140; 87040; 87637; 93005; 94640; 96374; 99285; J1938

== ENCOUNTER → 2025-06-01 20:10 | Outpatient (BNV) | payer OTHER, SELFPAY | PROVIDERS: Emergency Provider Emergency Medicine; Visit Provider Radiology Vascular & Interventional Radiology | DX: R06.02 Shortness of breath (principal) | CPT/HCPCS: 71045 ==

== ENCOUNTER → 2025-06-01 20:10 | Outpatient (BNV) | payer OTHER, SELFPAY | PROVIDERS: Emergency Provider Emergency Medicine; Visit Provider Internal Medicine Cardiovascular Disease | DX: I45.10 Unspecified right bundle-branch block (principal); I44.4 Left anterior fascicular block; R00.0 Tachycardia, unspecified | CPT/HCPCS: 93010 ==